=== PATIENT | female | born 1995 | race Caucasian/White ===

== ENCOUNTER 2020-05-05 16:10 | Emergency (ER) | payer OTHER ==
[2020-05-05 16:49] LABS: BASOPHILS % (AUTO) 0.4 %; EOSINOPHILS # (AUTO) 0.1 10^3/uL (0.0-0.7); EOSINOPHILS % (AUTO) 0.8 %; HGB - HEMOGLOBIN 13.2 g/dL (12.0-16.0); LYMPHOCYTES # (AUTO) 2.2 10^3/uL (1.5-3.5); LYMPHOCYTES % (AUTO) 22.7 %; MEAN CORPUSCULAR HEMOGLOBIN 29.1 pg (27.0-31.0); MEAN CORPUSCULAR HGB CONC 32.9 g/dL (32.0-36.0); MEAN CORPUSCULAR VOLUME 88.5 fL (81.0-99.0); MEAN PLATELET VOLUME 10.9 fL (7.9-10.8); MONOCYTES # (AUTO) 0.9 10^3/uL (0.0-1.0); MONOCYTES % (AUTO) 9.4 %; NEUTROPHILS # (AUTO) 6.3 10^3/uL (1.5-6.6); NEUTROPHILS % (AUTO) 66.2 %; PLT - PLATELET COUNT 328 10^3/uL (130-450); RED BLOOD COUNT 4.53 10^6/uL (4.20-5.40); WHITE BLOOD COUNT 9.5 x10^3/uL (4.8-10.8)
[2020-05-05 17:01] LABS: BILIRUBIN,URINE NEGATIVE (NEGATIVE); GLUCOSE, URINE (UA) NEGATIVE (NEGATIVE); KETONES,URINE (UA) NEGATIVE (NEGATIVE); LEUKOCYTE ESTERASE, URINE NEGATIVE (NEGATIVE); NITRITE,URINE NEGATIVE (NEGATIVE); OCCULT BLOOD,URINE LARGE (NEGATIVE); PROTEIN,URINE NEGATIVE (NEGATIVE); UROBILINOGEN,URINE 0.2 (NORMAL) E.U./dL (NORMAL)
[2020-05-05 17:02] LABS: ALBUMIN 4.4 g/dL (3.2-5.5); ALBUMIN/GLOBULIN RATIO 1.4 (1.0-2.2); BILIRUBIN,TOTAL 0.7 mg/dL (0.2-1.0); CALCIUM 8.9 mg/dL (8.5-10.3); CREATININE 0.9 mg/dL (0.4-1.0); TOTAL PROTEIN 7.5 g/dL (6.7-8.2)
[2020-05-05 17:04] LABS: CLARITY,URINE CLEAR (CLEAR); HCG UR QUAL NEGATIVE
[2020-05-05 17:06] VITALS: BP 133/82
[2020-05-05 17:08] LABS: BACTERIA,URINE None Seen /HPF (None Seen); RBC,URINE TNTC /HPF (0-5); SQUAMOUS EPITHELIAL CELL,UR NONE SEEN (<= Few)
--- NOTE | 2020-05-05 17:14 | ED Physician Documentation ---
PD HPI FEMALE - Stated complaint Stated Complaint: FEMALE - Chief complaint Chief Complaint: Abd Pain - History obtained from History obtained from: Patient - Additional information Additional information: She has chronically irregular cycles. She is G1, P0 with history of miscarriage x1. There is a possibility of . Heavy bleeding starting today with clots. No pain. Review of Systems Constitutional: reports: Reviewed and negative Cardiac: reports: Reviewed and negative Respiratory: reports: Reviewed and negative PD PAST MEDICAL HISTORY - Present Medications Home Medications: Ambulatory Orders Medication Instructions Recorded Confirmed Estradiol Valerate/Dienogest 1 each PO TID #1 packet 05/05/20 [Natazia 28 Tablet] - Allergies Allergies/Adverse Reactions: Allergies Allergy/AdvReac Type Severity Reaction Status Date / Time No Known Drug Allergies Allergy Verified 05/05/20 16:24 PD ED PE NORMAL - Vitals Vital signs reviewed: Yes - General General: Alert and oriented X 3, No acute distress - Abdomen Abdomen: Normal bowel sounds, Soft, Non tender - Back Back: No CVA TTP, No spinal TTP - Extremities Extremities: No edema, No calf tenderness / cord - Neuro Neuro: Alert and oriented X 3, Normal speech Results - Vitals Vitals: Vital Signs - 24 hr 05/05/20 05/05/20 16:24 17:05 Temperature 36.8 C 37.7 C H Heart Rate 95 74 Respiratory 18 16 Rate Blood Pressure 124/83 H 133/82 H O2 Saturation 100 100 Oxygen O2 Source Room air - Labs Labs: Laboratory Tests 05/05/20 05/05/20 05/05/20 16:44 16:44 16:44 WBC 9.5 RBC 4.53 Hgb 13.2 Hct 40.1 MCV 88.5 MCH 29.1 MCHC 32.9 RDW 13.0 Plt Count 328 MPV 10.9 H Neut # (Auto) 6.3 Lymph # (Auto) 2.2 [place] # (Auto) 0.9 Eos # (Auto) 0.1 Baso # (Auto) 0.0 Absolute Nucleated RBC 0.00 Nucleated RBC % 0.0 Sodium 138 Potassium 3.7 Chloride 104 Carbon Dioxide 23 Anion Gap 11.0 BUN 13 Creatinine 0.9 Estimated GFR (MDRD) 76 L Glucose 108 H Calcium 8.9 Total Bilirubin 0.7 AST 18 ALT 25 Alkaline Phosphatase 53 Total Protein 7.5 Albumin 4.4 Globulin 3.1 Albumin/Globulin Ratio 1.4 Lipase 26 Urine Color YELLOW Urine Clarity CLEAR Urine pH 6.0 Ur Specific [place] 1.025 Urine Protein NEGATIVE Urine Glucose (UA) NEGATIVE Urine Ketones NEGATIVE Urine Occult Blood LARGE H Urine Nitrite NEGATIVE Urine Bilirubin NEGATIVE Urine Urobilinogen 0.2 (NORMAL) Ur Leukocyte Esterase NEGATIVE Urine RBC TNTC H Urine WBC 0-3 Ur Squamous Epith Cells NONE SEEN Urine Bacteria None Seen Ur Microscopic Review INDICATED Urine Culture Comments NOT INDICATED Urine HCG, Qual NEGATIVE PD MEDICAL DECISION MAKING - ED course ED course: 25-year-old with menorrhagia, blood counts are unremarkable as is her test which is negative. Departure - Departure Disposition: Home, Self Care Clinical Impression: Menorrhagia with irregular cycle Condition: Good Record reviewed to determine appropriate education?: Yes Instructions: ED Bleeding Menstrual Heavy Follow-Up: [facility] [Provider Group] Prescriptions: Estradiol Valerate/Dienogest [Natazia 28 Tablet] 1 each PO TID #1 packet Comments: The bleeding should go away quickly after you start the high-dose control. Return if worse. Follow-up with rn gynecology regardless.
== END 2020-05-05 17:29 | disposition home or self-care (01) ==
LOC: ED 16:10
DX: N92.0 Excessive and frequent menstruation with regular cycle (principal)
CPT/HCPCS: 36415; 80053; 81001; 81003; 81025; 83690; 84702; 85025; 87086; 99283

== ENCOUNTER 2022-08-19 21:54 | Emergency (ER) | payer OTHER ==
--- OUTSIDE RECORDS SUMMARY | 2022-08-19 22:21 | EXTERNAL MEDICAL SUMMARY RPT | Continuity of Care Document ---
:1995 Author Organization [facility] Address [address] [place] [address] Phone Care Team Providers Name Role Phone Unavailable Unavailable Unavailable Carrie Pichardo Unavailable Unavailable Allergies and Intolerances date description facility type (no date) No Known Drug Allergies [facility] ([facility]kn own) Encounters No information. Functional Status No information. Immunizations date description facility 2022-07-11 00:00 [facility]les, [facility] date description facility 2022-07-11 00:00 Oxycodone [facility] 2022-07-11 00:00 Docusate Sodium [facility] 2022-07-11 00:00 Ibuprofen [facility] Problems date description facility 2022-06-07 13:53 Encounter for supervision of normal [facility] , third t 2022-06-07 13:53 36 weeks gestation of [facility] 2022-06-08 00:44 Encounter for supervision of normal [facility] , third t 2022-06-08 00:44 36 weeks gestation of [facility] 2022-06-14 12:49 Supervision of resulting from [facility] assisted reproductiv 2022-06-15 12:57 37 weeks gestation of [facility] 2022-07-11 00:00 Acute on chronic anemia [facility] 2022-07-11 00:00 Status post delivery [facility] 2022-07-11 14:23 Anemia, [facility] 2022-07-11 14:23 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 [facility]22-07-12 08[facility] 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 [facility] Procedures date description facility 2022-07-07 00:00 Extraction of Products of Conception, L ow, Open [facility] Approach 2022-07-09 00:00 Section (Not Applicable) [facility] 2022-06-14 00:00 Limited obstetrical ultrasound [facility] 2022-07-07 00:00 Introduction of Other Hormone into Rocio pheral [facility] Vein, Percutaneous Approach 2022-07-07 00:00 introduction of hormone into [facility] reproductive, via natural or artificial opening Results/Labs test date author facility value unit interpret ation Result panel 1 (unknown) (no date[facility]) Result panel 2 (unknown) (no date) (unknown[facility] Result panel 3 (unknown) (no date) (unknown[facility] Result panel 4 (unknown) (no date) (unknown[facility] Result panel 5 (unknown) (no date) (unknown[facility] Result panel 6 (unknown) (no date) (unknown[facility] Result panel 7 (unknown) (no date) (unknown[facility]) Result panel 8 (unknown) (no date) (unknown[facility] Result panel 9 (unknown) (no date) (unknown[facility]) Result panel 10 (unknown) (no date) (unknown[facility]) Result panel 11 (unknown) (no date) (unknown[facility] Result panel 12 (unknown) (no date) (unknown[facility]) Result panel 13 (unknown) (no date) (unknown[facility] Result panel 14 (unknown) (no date) (unknown[facility] Result panel 15 (unknown) (no date) (unknown[facility] Result panel 16 (unknown) (no date) (unknown[facility]) Result panel 17 (unknown) (no date) (unknown[facility] Result panel 18 (unknown) (no date) (unknown[facility]) Result panel 19 (unknown) (no date) (unknown[facility] Result panel 20 (unknown) (no date) (unknown[facility] Result panel 21 (unknown) (no date) (unknown[facility]) Result panel 22 (unknown) (no date) (unknown[facility]) Result panel 23 (unknown) (no date) (unknown[facility] Result panel 24 (unknown) (no date) (unknown[facility]) Result panel 25 (unknown) (no date) (unknown[facility]) Result panel 26 (unknown) (no date) (unknown[facility]) Result panel 27 (unknown) (no date) (unknown[facility]) Result panel 28 (unknown) (no date) (unknown[facility] Result panel 29 (unknown) (no date) (unknown[facility]) Result panel 30 (unknown) (no date) (unknown[facility]) Result panel 31 (unknown) (no date) (unknown[facility]) Result panel 32 (unknown) (no date) (unknown[facility]) Result panel 33 (unknown) (no date) (unknown[facility]) Result panel 34 (unknown) (no date) (unknown[facility]) Result panel 35 (unknown) (no date) (unknown[facility]) Result panel 36 (unknown) (no date) (unknown[facility]) Result panel 37 (unknown) (no date) (unknown[facility]) Result panel 38 (unknown) (no date) (unknown) [facility]) Result panel 39 (unknown) (no date) (unknown[facility]) Result panel 40 (unknown) (no date) (unknown) [facility]) Result panel 41 (unknown) (no date) (unknown[facility]) Result panel 42 (unknown) (no date) (unknown[facility]) Result panel 43 (unknown) (no date) (unknown[facility]) Result panel 44 (unknown) (no date) (unknown[facility]) Result panel 45 (unknown) (no date) (unknown[facility]) Result panel 46 (unknown) (no date) (unknown[facility]) Result panel 47 (unknown) (no date) (unknown[facility]) Result panel 48 (unknown) (no date) (unknown[facility]) Result panel 49 (unknown) (no date) (unknown) [facility]) Result panel 50 (unknown) (no date) (unknown[facility]) Result panel 51 (unknown) (no date) (unknown) [facility]) Result panel 52 (unknown) (no date) (unknown) [facility]) Result panel 53 (unknown) (no date) (unknown) [facility]) Result panel 54 (unknown) (no date) (unknown) [facility]) Result panel 55 (unknown) (no date) (unknown) [facility]) Result panel 56 (unknown) (no date) (unknown) [facility]) Result panel 57 (unknown) (no date) (unknown) [facility]) Result panel 58 (unknown) (no date) (unknown[facility]) Result panel 59 (unknown) (no date) (unknown[facility] Result panel 60 (unknown) (no date) (unknown[facility]) Result panel 61 (unknown) (no date) (unknown[facility]) Result panel 62 (unknown) (no date) (unknown) [facility]) Result panel 63 (unknown) (no date) (unknown[facility]) Result panel 64 (unknown) (no date) (unknown) [facility]) Result panel 65 (unknown) (no date) (unknown) [facility]) Result panel 66 (unknown) (no date) (unknown) [facility]) Result panel 67 (unknown) (no date) (unknown) [facility]) Result panel 68 (unknown) (no date) (unknown) [facility]) Result panel 69 (unknown) (no date) (unknown) [facility]) Result panel 70 (unknown) (no date) (unknown) [facility]) Result panel 71 (unknown) (no date) (unknown) [facility]) Result panel 72 (unknown) (no date) (unknown) [facility]) Result panel 73 (unknown) (no date) (unknown) [facility]) Result panel 74 (unknown) (no date) (unknown) [facility]) Result panel 75 (unknown) (no date) (unknown) [facility]) Result panel 76 (unknown) (no date) (unknown) [facility]) Result panel 77 (unknown) (no date) (unknown) [facility]) Result panel 78 (unknown) (no date) (unknown) [facility]) Result panel 79 (unknown) (no date) (unknown) [facility]) Result panel 80 (unknown) (no date) (unknown) [facility]) Result panel 81 (unknown) (no date) (unknown) [facility]) Result panel 82 (unknown) (no date) (unknown) [facility]) Result panel 83 (unknown) (no date) (unknown) [facility]) Result panel 84 (unknown) (no date) (unknown) [facility]) Result panel 85 (unknown) (no date) (unknown[facility]) Result panel 86 (unknown) (no date) (unknown[facility]) Result panel 87 (unknown) (no date) (unknown[facility]) Result panel 88 (unknown) (no date) (unknown[facility]) Result panel 89 (unknown) (no date) (unknown[facility]) Result panel 90 (unknown) (no date) (unknown) [facility]) Result panel 91 (unknown) (no date) (unknown) [facility]) Result panel 92 (unknown) (no date) (unknown) [facility]) Result panel 93 (unknown) (no date) (unknown) [facility]) Result panel 94 (unknown) (no date) (unknown) [facility]) Result panel 95 (unknown) (no date) (unknown) [facility]) Result panel 96 (unknown) (no date) (unknown) [facility]) Result panel 97 (unknown) (no date) (unknown) [facility]) Result panel 98 (unknown) (no date) (unknown) [facility]) Result panel 99 (unknown) (no date) (unknown[facility]) Result panel 100 (unknown) (no date) (unknown[facility]) Result panel 101 (unknown) (no date) (unknown[facility]) Result panel 102 (unknown) (no date) (unknown[facility]) Result panel 103 (unknown) (no date) (unknown[facility]) Result panel 104 (unknown) (no date) (unknown) [facility]) Result panel 105 (unknown) (no date) (unknown) [facility]) Result panel 106 (unknown) (no date) (unknown) [facility]) Result panel 107 (unknown) (no date) (unknown) [facility]) Result panel 108 (unknown) (no date) (unknown) [facility]) Result panel 109 (unknown) (no date) (unknown) [facility]) Result panel 110 (unknown) (no date) (unknown) [facility]) Result panel 111 (unknown) (no date) (unknown) [facility]) Result panel 112 (unknown) (no date) (unknown) [facility]) Result panel 113 (unknown) (no date) (unknown) [facility]) Result panel 114 (unknown) (no date) (unknown[facility]) Result panel 115 (unknown) (no date) (unknown) [facility]) Result panel 116 (unknown) (no date) (unknown) [facility]) Result panel 117 (unknown) (no date) (unknown) [facility]) Result panel 118 (unknown) (no date) (unknown) [facility]) Result panel 119 (unknown) (no date) (unknown) [facility]) Result panel 120 (unknown) (no date) (unknown) [facility]) Result panel 121 (unknown) (no date) (unknown) [facility]) Result panel 122 (unknown) (no date) (unknown) [facility]) Result panel 123 (unknown) (no date) (unknown) [facility]) Result panel 124 (unknown) (no date) (unknown) [facility]) Result panel 125 (unknown) (no date) (unknown[facility]) Result panel 126 (unknown) (no date) (unknown[facility]) Result panel 127 (unknown) (no date) (unknown[facility]) Result panel 128 (unknown) (no date) (unknown[facility]) Result panel 129 (unknown) (no date) (unknown[facility]) Result panel 130 (unknown) (no date) (unknown[facility]) Result panel 131 (unknown) (no date) (unknown[facility]) Result panel 132 (unknown) (no date) (unknown) [facility]) Result panel 133 (unknown) (no date) (unknown) [facility]) Result panel 134 (unknown) (no date) (unknown) [facility]) Result panel 135 (unknown) (no date) (unknown) [facility]) Result panel 136 (unknown) (no date) (unknown) [facility]) Result panel 137 (unknown) (no date) (unknown) [facility]) Result panel 138 (unknown) (no date) (unknown) [facility]) Result panel 139 (unknown) (no date) (unknown) [facility]) Result panel 140 (unknown) (no date) (unknown[facility]) Result panel 141 (unknown) (no date) (unknown[facility]) Result panel 142 (unknown) (no date) (unknown) [facility]) Result panel 143 (unknown) (no date) (unknown[facility]) Result panel 144 (unknown) (no date) (unknown[facility]) Result panel 145 (unknown) (no date) (unknown) [facility]) Result panel 146 (unknown) (no date) (unknown) [facility]) Result panel 147 (unknown) (no date) (unknown) [facility]) Result panel 148 (unknown) (no date) (unknown) [facility]) Result panel 149 (unknown) (no date) (unknown) [facility]) Result panel 150 (unknown) (no date) (unknown) [facility]) Result panel 151 (unknown) (no date) (unknown) [facility]) Result panel 152 (unknown) (no date) (unknown) [facility]) Result panel 153 (unknown) (no date) (unknown) [facility]) Result panel 154 (unknown) (no date) (unknown) [facility]) Result panel 155 (unknown) (no date) (unknown) [facility]) Result panel 156 (unknown) (no date) (unknown) [facility]) Result panel 157 (unknown) (no date) (unknown) [facility]) Result panel 158 (unknown) (no date) (unknown) [facility]) Result panel 159 (unknown) (no date) (unknown) [facility]) Result panel 160 (unknown) (no date) (unknown) [facility]) Result panel 161 (unknown) (no date) (unknown) [facility]) Result panel 162 (unknown) (no date) (unknown) [facility]) Result panel 163 (unknown) (no date) (unknown) [facility]) Result panel 164 (unknown) (no date) (unknown) [facility]) Result panel 165 (unknown) (no date) (unknown) [facility]) Result panel 166 (unknown) (no date) (unknown) [facility]) Result panel 167 (unknown) (no date) (unknown) [facility]) Result panel 168 (unknown) (no date) (unknown) [facility]) Result panel 169 (unknown) (no date) (unknown) [facility]) Result panel 170 (unknown) (no date) (unknown) [facility]) Result panel 171 (unknown) (no date) (unknown) [facility]) Result panel 172 (unknown) (no date) (unknown) [facility]) Result panel 173 (unknown) (no date) (unknown) [facility]) Result panel 174 (unknown) (no date) (unknown) [facility]) Result panel 175 (unknown) (no date) (unknown) [facility]) Result panel 176 (unknown) (no date) (unknown) [facility]) Result panel 177 (unknown) (no date) (unknown) [facility]) Result panel 178 (unknown) (no date) (unknown) [facility]) Result panel 179 (unknown) (no date) (unknown) [facility]) Result panel 180 (unknown) (no date) (unknown) [facility]) Result panel 181 (unknown) (no date) (unknown) [facility]) Result panel 182 (unknown) (no date) (unknown) [facility]) Result panel 183 (unknown) (no date) (unknown[facility]) Result panel 184 (unknown) (no date) (unknown[facility]) Result panel 185 (unknown) (no date) (unknown[facility]) Result panel 186 (unknown) (no date) (unknown[facility]) Result panel 187 (unknown) (no date) (unknown) [facility]) Result panel 188 (unknown) (no date) (unknown) [facility]) Result panel 189 (unknown) (no date) (unknown) [facility]) Result panel 190 (unknown) (no date) (unknown) [facility]) Result panel 191 (unknown) (no date) (unknown) [facility]) Result panel 192 (unknown) (no date) (unknown) [facility]) Result panel 193 (unknown) (no date) (unknown) [facility]) Result panel 194 (unknown) (no date) (unknown) [facility]) Result panel 195 (unknown) (no date) (unknown) [facility]) Result panel 196 (unknown) (no date) (unknown) [facility]) Result panel 197 (unknown) (no date) (unknown) [facility]) Result panel 198 (unknown) (no date) (unknown) [facility]) Result panel 199 (unknown) (no date) (unknown) [facility]) Result panel 200 (unknown) (no date) (unknown) [facility]) Result panel 201 (unknown) (no date) (unknown) [facility]) Result panel 202 (unknown) (no date) (unknown) [facility]) Result panel 203 (unknown) (no date) (unknown) [facility]) Result panel 204 (unknown) (no date) (unknown) [facility]) Result panel 205 (unknown) (no date) (unknown) [facility]) Result panel 206 (unknown) (no date) (unknown) [facility]) Result panel 207 (unknown) (no date) (unknown) [facility]) Result panel 208 (unknown) (no date) (unknown) [facility]) Result panel 209 (unknown) (no date) (unknown) [facility]) Result panel 210 (unknown) (no date) (unknown) [facility]) Result panel 211 (unknown) (no date) (unknown) [facility]) Result panel 212 (unknown) (no date) (unknown) [facility]) Result panel 213 (unknown) (no date) (unknown) [facility]) Result panel 214 (unknown) (no date) (unknown[facility]) Result panel 215 (unknown) (no date) (unknown) [facility] Result panel 216 (unknown) (no date) (unknown) [facility]) Result panel 217 (unknown) (no date) (unknown) [facility] Result panel 218 (unknown) (no date) (unknown) [facility] Result panel 219 (unknown) (no date) (unknown) [facility]) Result panel 220 (unknown) (no date) (unknown) [facility]) Result panel 221 (unknown) (no date) (unknown) [facility]) Result panel 222 (unknown) (no date) (unknown) [facility]) Result panel 223 (unknown) (no date) (unknown) [facility]) Result panel 224 (unknown) (no date) (unknown) [facility]) Result panel 225 (unknown) (no date) (unknown) [facility]) Result panel 226 (unknown) (no date) (unknown) [facility]) Result panel 227 (unknown) (no date) (unknown) [facility]) Result panel 228 (unknown) (no date) (unknown) [facility]) Result panel 229 (unknown) (no date) (unknown) [facility]) Result panel 230 (unknown) (no date) (unknown) [facility]) Result panel 231 (unknown) (no date) (unknown) [facility]) Result panel 232 (unknown) (no date) (unknown) [facility]) Result panel 233 (unknown) (no date) (unknown) [facility]) Result panel 234 (unknown) (no date) (unknown) [facility]) Result panel 235 (unknown) (no date) (unknown) [facility]) Result panel 236 (unknown) (no date) (unknown) [facility] Result panel 237 (unknown) (no date) (unknown) [facility]) Result panel 238 (unknown) (no date) (unknown) [facility]) Result panel 239 (unknown) (no date) (unknown[facility]) Result panel 240 (unknown) (no date) (unknown) [facility]) Result panel 241 (unknown) (no date) (unknown[facility]) Result panel 242 (unknown) (no date) (unknown) [facility]) Result panel 243 (unknown) (no date) (unknown) [facility]) Result panel 244 (unknown) (no date) (unknown) [facility]) Result panel 245 (unknown) (no date) (unknown) [facility]) Result panel 246 (unknown) (no date) (unknown) [facility]) Result panel 247 (unknown) (no date) (unknown) [facility]) Result panel 248 (unknown) (no date) (unknown) [facility]) Result panel 249 (unknown) (no date) (unknown) [facility]) Result panel 250 (unknown) (no date) (unknown) [facility]) Result panel 251 (unknown) (no date) (unknown) [facility]) Result panel 252 (unknown) (no date) (unknown) [facility]) Result panel 253 (unknown) (no date) (unknown) [facility]) Result panel 254 (unknown) (no date) (unknown) [facility]) Result panel 255 (unknown) (no date) (unknown) [facility]) Result panel 256 (unknown) (no date) (unknown) [facility]) Result panel 257 (unknown) (no date) (unknown) [facility]) Result panel 258 (unknown) (no date) (unknown) [facility]) Result panel 259 (unknown) (no date) (unknown) [facility]) Result panel 260 (unknown) (no date) (unknown) [facility]) Result panel 261 (unknown) (no date) (unknown) [facility]) Result panel 262 (unknown) (no date) (unknown) [facility]) Result panel 263 (unknown) (no date) (unknown) [facility]) Result panel 264 (unknown) (no date) (unknown) [facility]) Result panel 265 (unknown) (no date) (unknown) [facility]) Result panel 266 (unknown) (no date) (unknown) [facility]) Result panel 267 (unknown) (no date) (unknown) [facility]) Result panel 268 (unknown) (no date) (unknown) [facility]) Result panel 269 (unknown) (no date) (unknown) [facility]) Result panel 270 (unknown) (no date) (unknown) [facility]) Result panel 271 (unknown) (no date) (unknown) [facility]) Result panel 272 (unknown) (no date) (unknown) [facility]) Result panel 273 (unknown) (no date) (unknown) [facility]) Result panel 274 (unknown) (no date) (unknown) [facility]) Result panel 275 (unknown) (no date) (unknown) [facility]) Result panel 276 (unknown) (no date) (unknown) [facility]) Result panel 277 (unknown) (no date) (unknown) [facility]) Result panel 278 (unknown) (no date) (unknown) [facility]) Result panel 279 (unknown) (no date) (unknown) [facility]) Result panel 280 (unknown) (no date) (unknown) [facility]) Result panel 281 (unknown) (no date) (unknown) [facility]) Result panel 282 (unknown) (no date) (unknown) [facility]) Result panel 283 (unknown) (no date) (unknown) [facility]) Result panel 284 (unknown) (no date) (unknown) [facility]) Result panel 285 (unknown) (no date) (unknown) [facility]) Result panel 286 (unknown) (no date) (unknown) [facility]) Result panel 287 (unknown) (no date) (unknown) [facility]) Result panel 288 (unknown) (no date) (unknown) [facility]) Result panel 289 (unknown) (no date) (unknown) [facility]) Result panel 290 (unknown) (no date) (unknown) [facility]) Result panel 291 (unknown) (no date) (unknown) [facility]) Result panel 292 (unknown) (no date) (unknown) [facility]) Result panel 293 (unknown) (no date) (unknown) [facility]) Result panel 294 (unknown) (no date) (unknown) [facility]) Result panel 295 (unknown) (no date) (unknown) [facility]) Result panel 296 (unknown) (no date) (unknown) [facility]) Result panel 297 (unknown) (no date) (unknown) [facility]) Result panel 298 (unknown) (no date) (unknown) [facility]) Result panel 299 (unknown) (no date) (unknown) [facility]) Result panel 300 (unknown) (no date) (unknown) [facility]) Result panel 301 (unknown) (no date) (unknown) [facility]) Result panel 302 (unknown) (no date) (unknown) [facility]) Result panel 303 (unknown) (no date) (unknown) [facility]) Result panel 304 (unknown) (no date) (unknown) [facility]) Result panel 305 (unknown) (no date) (unknown) [facility]) Result panel 306 (unknown) (no date) (unknown) [facility]) Result panel 307 (unknown) (no date) (unknown) [facility]) Result panel 308 (unknown) (no date) (unknown) [facility]) Result panel 309 (unknown) (no date) (unknown) [facility]) Result panel 310 (unknown) (no date) (unknown) [facility]) Result panel 311 (unknown) (no date) (unknown) [facility]) Result panel 312 (unknown) (no date) (unknown) [facility]) Result panel 313 (unknown) (no date) (unknown) [facility]) Result panel 314 (unknown) (no date) (unknown) [facility]) Result panel 315 (unknown) (no date) (unknown) [facility]) Result panel 316 (unknown) (no date) (unknown) [facility]) Result panel 317 (unknown) (no date) (unknown) [facility]) Result panel 318 (unknown) (no date) (unknown) [facility]) Result panel 319 (unknown) (no date) (unknown) [facility]) Result panel 320 (unknown) (no date) (unknown) [facility]) Result panel 321 (unknown) (no date) (unknown) [facility]) Result panel 322 (unknown) (no date) (unknown) [facility]) Result panel 323 (unknown) (no date) (unknown) [facility]) Result panel 324 (unknown) (no date) (unknown) [facility]) Result panel 325 (unknown) (no date) (unknown) [facility]) Result panel 326 (unknown) (no date) (unknown) [facility]) Result panel 327 (unknown) (no date) (unknown) [facility] Result panel 328 (unknown) (no date) (unknown) [facility] Result panel 329 (unknown) (no date) (unknown[facility] Result panel 330 (unknown) (no (unknown) (unknown) (no value) (units (unk nown) date) unknown) (unknown) (no (unknown) (unknown) (+18 lb) 102/68 N (units (unknown) date) unknown) (unknown) (no (unknown) (unknown) (+26 lb) 128/72 N (units (unknown) date) unknown) (unknown) (no (unknown) (unknown) (+3 lb) 110/70 N (units (unknown) date) unknown) (unknown) (no (unknown) (unknown) (+32 lb) 110/72 1 (units (unknown) date) unknown) (unknown) (no (unknown) (unknown) (+36 lb) 114/64 N (units (unknown) date) unknown) (unknown) (no (unknown) (unknown) (+6 lb) 104/66 TR (units (unknown) date) unknown) (unknown) (no (unknown) (unknown) (+9 lb) 108/78 N (units (unknown) date) unknown) (unknown) (no (unknown) (unknown) Genetic (units (unkn own) date) Screening/Teratolo unknown) gy Counseling - Includes patient, baby's father, or (unknown) (no (unknown) (unknown) -?-?-?-?-?-?-?-?- (units (unknown) date) ?-?-?-? unknown) (unknown) (no (unknown) (unknown) 12/08/2021 (units (unk nown) date) Caceres viable unknown) intrauterine gestation size equal to dates (unknown) (no (unknown) (unknown) 12/08/21 (units (unkno wn) date) unknown) (unknown) (no (unknown) (unknown) 01/05/22 (units (unkno wn) date) unknown) (unknown) (no (unknown) (unknown) 02/02/22 (units (unkno wn) date) unknown) (unknown) (no (unknown) (unknown) 02/17/19 8 (units (unk nown) date) spontaneous unknown) (unknown) (no (unknown) (unknown) 02/28/22 (units (unkno wn) date) unknown) (unknown) (no (unknown) (unknown) 03/28/22 (units (unkno wn) date) unknown) (unknown) (no (unknown) (unknown) 04/25/22 (units (unkno wn) date) unknown) (unknown) (no (unknown) (unknown) 05/10/22 (units (unkno wn) date) unknown) (unknown) (no (unknown) (unknown) 05/24/22 (units (unkno wn) date) unknown) (unknown) (no (unknown) (unknown) 10w 6d 183 lb (units ( unknown) date) unknown) (unknown) (no (unknown) (unknown) 07/01/22 (units (unkno wn) date) Ultrasound #1 34w unknown) 4d (unknown) (no (unknown) (unknown) 13:43 (units (unkno wn) date) unknown) (unknown) (no (unknown) (unknown) 14w 6d 186 lb (units ( unknown) date) unknown) (unknown) (no (unknown) (unknown) 18w 6d 189 lb (units ( unknown) date) unknown) (unknown) (no (unknown) (unknown) 22w 4d 198 lb (units ( unknown) date) unknown) (unknown) (no (unknown) (unknown) 26w 4d 206 lb (units ( unknown) date) unknown) (unknown) (no (unknown) (unknown) 26wk4d. Pt with (units (unknown) date) some abdominal unknown) musculoskeletal discomfort, lower and (unknown) (no (unknown) (unknown) [id number], IVF (units ( unknown) date) , at unknown) 22wks here for DANYELLE visit. Constipation, no (unknown) (no (unknown) (unknown) 2wk (units (unkno wn) date) unknown) (unknown) (no (unknown) (unknown) 30w 4d 212 lb (units ( unknown) date) unknown) (unknown) (no (unknown) (unknown) 32w 5d 216 lb (units ( unknown) date) unknown) (unknown) (no (unknown) (unknown) 32wk5d. Trini (units (unknown) date) questions how to unknown) feel contractions, uncertain at times if (unknown) (no (unknown) (unknown) [id number] (units (unkno wn) date) unknown) (unknown) (no (unknown) (unknown) 42 (units (unkno wn) date) unknown) (unknown) (no (unknown) (unknown) Abnormal Pap (units (u nknown) date) smear of cervix unknown) (-2013) (unknown) (no (unknown) (unknown) Abnormal lab (units (u nknown) date) values 1st unknown) trimester: discussed (unknown) (no (unknown) (unknown) Add'l Plan (units (unk nown) date) Details unknown) (unknown) (no (unknown) (unknown) Age/Sex: 27 / F (units (unknown) date) Date of Service: unknown) (unknown) (no (unknown) (unknown) Allergies (units (unkn own) date) unknown) (unknown) (no (unknown) (unknown) [place], [place] (units ( unknown) date) [id number] unknown) (unknown) (no (unknown) (unknown) Anesthesia (units (unk nown) date) unknown) (unknown) (no (unknown) (unknown) Aneuploidy (units (unk nown) date) Screening Offered: unknown) Declined (unknown) (no (unknown) (unknown) Anticipated (units (un known) date) course of unknown) care: discussed (unknown) (no (unknown) (unknown) Assessment and (units (unknown) date) Plan unknown) (unknown) (no (unknown) (unknown) Attending Dr: Lynne (units (unknown) date) Sirisha Campuzano MD unknown) (unknown) (no (unknown) (unknown) BMI 38.7 (units (unkno wn) date) unknown) (unknown) (no (unknown) (unknown) (units (unkno wn) date) Plan/Preferences unknown) (unknown) (no (unknown) (unknown) Planning (units (unknown) date) unknown) (unknown) (no (unknown) (unknown) Blood (units (unkno wn) date) transfusions?: yes unknown) (never had but willing to accept) (unknown) (no (unknown) (unknown) Breastfeed Preg (units (unknown) date) Comp Name unknown) (unknown) (no (unknown) (unknown) Childbirth (units (unk nown) date) Classes: discussed unknown) (unknown) (no (unknown) (unknown) Current Estimate (units (unknown) date) 06/30/22 Manual unknown) 34w 5d IVF pregnan (unknown) (no (unknown) (unknown) Current (units (unknown) date) History unknown) (unknown) (no (unknown) (unknown) : 1995 (units (unknown) date) Acct:[id number] unknown) (unknown) (no (unknown) (unknown) Date of positive (units (unknown) date) home unknown) test: 10/16/21 (unknown) (no (unknown) (unknown) Date (units (unkno wn) date) unknown) (unknown) (no (unknown) (unknown) Del. Date (units (unkn own) date) GA/Weeks Labor unknown) Lgth Wt Sex Route Outcome Anesthesia Place (unknown) (no (unknown) (unknown) Delivery Date: (units (unknown) date) 02/17/19 Last unknown) Updated by: Juhi Hayes R.N. (unknown) (no (unknown) (unknown) Delv (units (unkno wn) date) unknown) (unknown) (no (unknown) (unknown) Denies Congenital (units (unknown) date) Heart Defect, unknown) Denies Down Syndrome, Denies Muscular Dystrophy, (unknown) (no (unknown) (unknown) Denies Maternal (units (unknown) date) Metabolic Disorder unknown) (EG,TYPE 1 Diabetes, PKU), Denies Patient or (unknown) (no (unknown) (unknown) Denies Neural (units ( unknown) date) Tube Defect unknown) (Meningomyelocele, Spina Bifida, or Anencephaly), (unknown) (no (unknown) (unknown) Denies Sickle (units ( unknown) date) Cell Disease or unknown) Trait (), Denies Hemophilia or other blood (unknown) (no (unknown) (unknown) Denies Epifanio-Sachs (units (unknown) date) (Ashkenazi Quaker, unknown) [place], [place]), Denies Nadja (unknown) (no (unknown) (unknown) Denies other (units (u nknown) date) unknown) (unknown) (no (unknown) (unknown) Denies over the (units (unknown) date) counter unknown) medications, Denies alcohol, Denies illicit drugs and (unknown) (no (unknown) (unknown) Depression: (units (un known) date) discussed unknown) (unknown) (no (unknown) (unknown) Dept at (units (unkno wn) date) . 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), (unknown) (no (unknown) (unknown) Documented By: (units (unknown) date) Lynne Campuzano unknown) 05/24/22 13 (unknown) (no (unknown) (unknown) Draft (units (unkno wn) date) unknown) (unknown) (no (unknown) (unknown) LORY Calculator (units (unknown) date) unknown) (unknown) (no (unknown) (unknown) EGA Weight BP (units ( unknown) date) UGlucose unknown) (unknown) (no (unknown) (unknown) Encounter for in (units (unknown) date) vitro unknown) fertilization () (unknown) (no (unknown) (unknown) Estimated (units (unkn own) date) Delivery Date unknown) Method Current (unknown) (no (unknown) (unknown) Exercise and (units (u nknown) date) activity, unknown) work/environmental /hazards, Sexual activity, X-ray (unknown) (no (unknown) (unknown) Expected Delivery (units (unknown) date) Route/Plan unknown) (unknown) (no (unknown) (unknown) Family History (units (unknown) date) (Updated 01/04/22 unknown) @ 23:06 by Paris Davalos) (unknown) (no (unknown) (unknown) Father of Baby: (units (unknown) date) [place] unknown) (unknown) (no (unknown) (unknown) [facility]) (unknown) (no (unknown) (unknown) First Trimester (units (unknown) date) Education unknown) Checklist (unknown) (no (unknown) (unknown) (units (unkno wn) date) unknown) (unknown) (no (unknown) (unknown) Genetic Screening (units (unknown) date) + Counseling unknown) (unknown) (no (unknown) (unknown) Genetic Screening (units (unknown) date) unknown) (unknown) (no (unknown) (unknown) Grandfather (units (un known) date) Diabetes mellitus unknown) (unknown) (no (unknown) (unknown) Grandmother (units (un known) date) Breast cancer unknown) (unknown) (no (unknown) (unknown) Grandmother (units (un known) date) Hypertension unknown) (unknown) (no (unknown) (unknown) 2 (units (unkn own) date) Multiple births unknown) (unknown) (no (unknown) (unknown) HIV risk (units (unkno wn) date) evaluation: low unknown) risk (unknown) (no (unknown) (unknown) Health Center (units ( unknown) date) Education unknown) (unknown) (no (unknown) (unknown) Health center (units ( unknown) date) information: unknown) nature of practice discussed, visit schedule (unknown) (no (unknown) (unknown) Height 5 ft 3 in (units (unknown) date) unknown) (unknown) (no (unknown) (unknown) Hepatitis C risk (units (unknown) date) evaluation: low unknown) risk (unknown) (no (unknown) (unknown) History of (units (unk nown) date) Hepatitis B: No unknown) (unknown) (no (unknown) (unknown) History of (units (unk nown) date) Hepatitis C: No unknown) (unknown) (no (unknown) (unknown) History of LEEP (units (unknown) date) procedure unknown) (unknown) (no (unknown) (unknown) 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) unknown) (unknown) (no (unknown) (unknown) Montague's (units (u nknown) date) Chorea, Denies unknown) Other inherited genetic or chromosomal disorder, (unknown) (no (unknown) (unknown) Hx # (units (u nknown) date) Pregnancies unknown) Elective abortions (unknown) (no (unknown) (unknown) Hx # Term (units (unkn own) date) Pregnancies unknown) Ectopic pregnancies (unknown) (no (unknown) (unknown) Hx of (units (unkno wn) date) tonsillectomy unknown) (-2009) (unknown) (no (unknown) (unknown) IVF for this (units (u nknown) date) , unknown) declined Echo 02/28/22 32 wk growth US 44% (unknown) (no (unknown) (unknown) Infection History (units (unknown) date) unknown) (unknown) (no (unknown) (unknown) Infection history (units (unknown) date) comments: needs unknown) flu + covid vaccines (unknown) (no (unknown) (unknown) Infectious (units (unk nown) date) Disease Education unknown) (unknown) (no (unknown) (unknown) Infectious (units (unk nown) date) disease exposure: unknown) chicken pox immunity discussed, tuberculosis (unknown) (no (unknown) (unknown) 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) unknown) (unknown) (no (unknown) (unknown) Initial Weight: (units (unknown) date) 180 lb unknown) (unknown) (no (unknown) (unknown) Initials (units (unkno wn) date) unknown) (unknown) (no (unknown) (unknown) Intake Clinical (units (unknown) date) Staff unknown) (unknown) (no (unknown) (unknown) Intake Note: (units (u nknown) date) unknown) (unknown) (no (unknown) (unknown) Intake performed (units (unknown) date) by: Juliana Manriquez unknown) (unknown) (no (unknown) (unknown) Intake (units (unkno wn) date) unknown) (unknown) (no (unknown) (unknown) Live with someone (units (unknown) date) with TB or exposed unknown) to TB: No (unknown) (no (unknown) (unknown) Loc: [facility] (units (unkno wn) date) unknown) (unknown) (no (unknown) (unknown) 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) () (unknown) (no (unknown) (unknown) Marital status: (units (unknown) date) unknown) (unknown) (no (unknown) (unknown) Medical History (units (unknown) date) (Updated 02/28/22 unknown) @ 08:37 by Lynne Campuzano MD) (unknown) (no (unknown) (unknown) Mother (units (unkno wn) date) Hypertension unknown) (unknown) (no (unknown) (unknown) N 140 15 4wk (units (u nknown) date) unknown) (unknown) (no (unknown) (unknown) N Yes 142 19 girl (units (unknown) date) 4wk unknown) (unknown) (no (unknown) (unknown) N Yes no 143 22 (units (unknown) date) absent 4wk unknown) (unknown) (no (unknown) (unknown) N Yes no 144 27 (units (unknown) date) absent 4 wk unknown) (unknown) (no (unknown) (unknown) N Yes no 144 (units (u nknown) date) Vertex absent EFW unknown) 44%, GOMEZ 14 (unknown) (no (unknown) (unknown) N Yes no 145 30 (units (unknown) date) absent 4wk unknown) (unknown) (no (unknown) (unknown) NF (units (unkno wn) date) unknown) (unknown) (no (unknown) (unknown) No Known Drug (units ( unknown) date) Allergies Allergy unknown) (Unverified 03/28/22 07:56) (unknown) (no (unknown) (unknown) No vaginal (units (unk nown) date) bleeding. No unknown) change in vaginal discharge. No fevers. No vaginal (unknown) (no (unknown) (unknown) Notes (units (unkno wn) date) unknown) (unknown) (no (unknown) (unknown) Number of Living (units (unknown) date) Children unknown) (unknown) (no (unknown) (unknown) Number of (units (unkn own) date) fetuses:: Single unknown) (unknown) (no (unknown) (unknown) Nutrition and (units ( unknown) date) weight gain unknown) counseling: special diet: discussed (unknown) (no (unknown) (unknown) OB Office Visit (units (unknown) date) unknown) (unknown) (no (unknown) (unknown) OB Visit Log (units (u nknown) date) unknown) (unknown) (no (unknown) (unknown) OB check (units (unkno wn) date) unknown) (unknown) (no (unknown) (unknown) On control (units (unknown) date) at conception?: No unknown) (IVF) (unknown) (no (unknown) (unknown) Other Estimates (units (unknown) date) 06/26/22 LMP unknown) (Certain) 35w 2d (unknown) (no (unknown) (unknown) PFSH (units (unkno wn) date) unknown) (unknown) (no (unknown) (unknown) Pap performed?: (units (unknown) date) No unknown) (unknown) (no (unknown) (unknown) Para 0 (units (unkno wn) date) Spontaneous unknown) abortions 1 (unknown) (no (unknown) (unknown) Partner history (units (unknown) date) of STD: denies hx unknown) (unknown) (no (unknown) (unknown) Partner history (units (unknown) date) of genital herpes: unknown) No (unknown) (no (unknown) (unknown) Partner: Bebeto (units (unknown) date) [place] unknown) (unknown) (no (unknown) (unknown) Past Pregnancies (units (unknown) date) unknown) (unknown) (no (unknown) (unknown) Patient is (units (unk nown) date) feeling well. Some unknown) mild cramping. No bleeding. No fevers. (unknown) (no (unknown) (unknown) Patient is (units (unk nown) date) feeling well. Some unknown) pressure sensation but no other concerns. (unknown) (no (unknown) (unknown) Patient's age 35 (units (unknown) date) years or older as unknown) of estimated date of delivery: No (unknown) (no (unknown) (unknown) Patient: (units (unkno wn) date) Trini Lorenz unknown) MR#: [id number] (unknown) (no (unknown) (unknown) Personal history (units (unknown) date) of STD: HPV (2015) unknown) (unknown) (no (unknown) (unknown) Personal history (units (unknown) date) of genital herpes: unknown) No (unknown) (no (unknown) (unknown) History (units (unknown) date) unknown) (unknown) (no (unknown) (unknown) type:: (units (unknown) date) Other Normal unknown) (unknown) (no (unknown) (unknown) (units (unkno wn) date) Education unknown) (unknown) (no (unknown) (unknown) Initial (units (unknown) date) Assessment unknown) (unknown) (no (unknown) (unknown) Specific (units (unknown) date) Issues/Plans unknown) (unknown) (no (unknown) (unknown) Testing: (units (unknown) date) discussed unknown) (unknown) (no (unknown) (unknown) Visit (units (unknown) date) unknown) (unknown) (no (unknown) (unknown) (units (unkno wn) date) education packet: unknown) Child education/plan, symptoms, (unknown) (no (unknown) (unknown) Primary Care (units (u nknown) date) Provider: Britt unknown) Sharmaine (unknown) (no (unknown) (unknown) Primary Ob (units (unk nown) date) Provider: unknown) Lynne Campuzano (unknown) (no (unknown) (unknown) Prior (units (unkno wn) date) GBS-Infected unknown) child: No (unknown) (no (unknown) (unknown) Providers (units (unkn own) date) unknown) (unknown) (no (unknown) (unknown) [id number]. She (units (unknown) date) denies any unknown) problems. She bought an abdominal binder and (unknown) (no (unknown) (unknown) Rash or viral (units ( unknown) date) illness since last unknown) menstrual period: No (unknown) (no (unknown) (unknown) Reason For Visit (units (unknown) date) unknown) (unknown) (no (unknown) (unknown) Recent travel (units ( unknown) date) outside of unknown) country?: No (unknown) (no (unknown) (unknown) Recurrent (units (unkn own) date) loss or unknown) a stillbirth: No (unknown) (no (unknown) (unknown) Routine (units (unkno wn) date) precautions and unknown) normal physiological changes of (unknown) (no (unknown) (unknown) Routine (units (unkno wn) date) precautions unknown) reviewed. (unknown) (no (unknown) (unknown) Rubella nonimmune (units (unknown) date) immunize unknown) (unknown) (no (unknown) (unknown) S/P LEEP (loop (units (unknown) date) electrosurgical unknown) excision procedure) () (unknown) (no (unknown) (unknown) Safety (units (unkno wn) date) unknown) (unknown) (no (unknown) (unknown) Signed By: (units (unk nown) date) unknown) (unknown) (no (unknown) (unknown) Smoking Status: (units (unknown) date) Never smoker unknown) (unknown) (no (unknown) (unknown) Smoking/Tobacco (units (unknown) date) use: discussed unknown) (unknown) (no (unknown) (unknown) Social History (units (unknown) date) unknown) (unknown) (no (unknown) (unknown) Surgical History (units (unknown) date) (Updated 01/04/22 unknown) @ 23:05 by Paris Davalos) (unknown) (no (unknown) (unknown) Symptoms since (units (unknown) date) LMP: Reports unknown) amenorrhea, nausea, fatigue, urinary frequency, (unknown) (no (unknown) (unknown) TR 174 11 4wk (units ( unknown) date) unknown) (unknown) (no (unknown) (unknown) Tdap status: (units (u nknown) date) immunized unknown) (unknown) (no (unknown) (unknown) Teratogen (units (unkn own) date) Exposures since unknown) LMP/Conception: Denies prescription medications, (unknown) (no (unknown) (unknown) Testing Education (units (unknown) date) unknown) (unknown) (no (unknown) (unknown) Testing education (units (unknown) date) completed: Genetic unknown) testing, group B strep and Cell Free DNA (unknown) (no (unknown) (unknown) This note may (units ( unknown) date) have been all or unknown) partially generated using voice recognition (unknown) (no (unknown) (unknown) Tobacco + (units (unkn own) date) Substance Use unknown) (unknown) (no (unknown) (unknown) Tobacco Status (units (unknown) date) unknown) (unknown) (no (unknown) (unknown) Trimester:: 3rd (units (unknown) date) Trimester unknown) (28wks-Del) (unknown) (no (unknown) (unknown) Type(s) of (units (unk nown) date) exercise: none unknown) (unknown) (no (unknown) (unknown) Typically feels (units (unknown) date) in the a.m.. Only unknown) feeling occasionally, nothing routinely. I (unknown) (no (unknown) (unknown) UProtein Movement (units (unknown) date) PreLabor FHR Fndl unknown) Ht Pres Edema Cerv Exam US/Comment Next Appt (unknown) (no (unknown) (unknown) Ultrasound (units (unk nown) date) Details:: Prior 7 unknown) week 3 day ultrasound at IVF on 11/15/21 clinic (unknown) (no (unknown) (unknown) Ultrasound (units (unk nown) date) performed?: No unknown) (unknown) (no (unknown) (unknown) Ultrasound (units (unk nown) date) unknown) (unknown) (no (unknown) (unknown) Vaginal (units (unkno wn) date) unknown) (unknown) (no (unknown) (unknown) Varicella/chicken (units (unknown) date) pox status: unknown) immunized and previous disease (mild case as (unknown) (no (unknown) (unknown) Visit Date: (units (un known) date) 12/08/21 Last unknown) Updated by: Carrie Pichardo MD (unknown) (no (unknown) (unknown) Visit Date: (units (un known) date) 01/05/22 Last unknown) Updated by: Carrie Pichardo MD (unknown) (no (unknown) (unknown) Visit Date: (units (un known) date) 02/02/22 Last unknown) Updated by: Carrie Pichardo MD (unknown) (no (unknown) (unknown) Visit Date: (units (un known) date) 02/28/22 Last unknown) Updated by: Lynne Campuzano MD (unknown) (no (unknown) (unknown) Visit Date: (units (un known) date) 03/28/22 Last unknown) Updated by: Lynne Campuzano MD (unknown) (no (unknown) (unknown) Visit Date: (units (un known) date) 04/25/22 Last unknown) Updated by: Lynne Campuzano MD (unknown) (no (unknown) (unknown) Visit Date: (units (un known) date) 05/10/22 Last unknown) Updated by: Lynne Campuzano MD (unknown) (no (unknown) (unknown) Visit Reasons: OB (units (unknown) date) check unknown) (unknown) (no (unknown) (unknown) Vitals (units (unkno wn) date) unknown) (unknown) (no (unknown) (unknown) Vitamins and (units (u nknown) date) iron, Diet and unknown) weight gain, Fish and mercury intake, Caffeine use, (unknown) (no (unknown) (unknown) WG (units (unkno wn) date) unknown) (unknown) (no (unknown) (unknown) Weeks gestation:: (units (unknown) date) 34 unknown) (unknown) (no (unknown) (unknown) Weight 219 lb (units ( unknown) date) unknown) (unknown) (no (unknown) (unknown) Millis teeth (units (u nknown) date) extracted () unknown) (unknown) (no (unknown) (unknown) Zika virus (units (unk nown) date) exposure: No unknown) (unknown) (no (unknown) (unknown) alcohol intake: (units (unknown) date) former unknown) (unknown) (no (unknown) (unknown) amh (units (unkno wn) date) unknown) (unknown) (no (unknown) (unknown) and office visits (units (unknown) date) unknown) (unknown) (no (unknown) (unknown) anyone in either (units (unknown) date) family with: unknown) (unknown) (no (unknown) (unknown) baby's father had (units (unknown) date) a child with unknown) defects not listed above and Denies Other (unknown) (no (unknown) (unknown) bleeding. She is (units (unknown) date) feeling baby move. unknown) Routine precautions reviewed. (unknown) (no (unknown) (unknown) caffeine: Yes (units ( unknown) date) (aware of 200mg unknown) daily limit) (unknown) (no (unknown) (unknown) carbon monox (units (u nknown) date) detector in home: unknown) Yes (unknown) (no (unknown) (unknown) child) (units (unkno wn) date) unknown) (unknown) (no (unknown) (unknown) concerns with (units ( unknown) date) COVID infection unknown) and and urged patient to consider (unknown) (no (unknown) (unknown) consistent with (units (unknown) date) dates. unknown) (unknown) (no (unknown) (unknown) cramping, vaginal (units (unknown) date) bleeding or unknown) leakage of fluid. Doing her Glucola today. (unknown) (no (unknown) (unknown) current (units (unkno wn) date) occupational unknown) exposures/hazards: No (unknown) (no (unknown) (unknown) cy (units (unkno wn) date) unknown) (unknown) (no (unknown) (unknown) cytotec (units (unkno wn) date) unknown) (unknown) (no (unknown) (unknown) daily servings (units (unknown) date) fruits/ve-4 unknown) (unknown) (no (unknown) (unknown) declined referral (units (unknown) date) for unknown) echocardiogram for IVF . (unknown) (no (unknown) (unknown) discussed (units (unkn own) date) increased fiber in unknown) diet. May use MiraLax. No uterine type cramping, (unknown) (no (unknown) (unknown) discussed with (units (unknown) date) the patient. unknown) Patient is not COVID vaccinated. Discussed (unknown) (no (unknown) (unknown) disorders, Denies (units (unknown) date) Cystic Fibrosis, unknown) Denies Mental Retardation/Autism , Denies (unknown) (no (unknown) (unknown) do you feel safe (units (unknown) date) at home: Yes unknown) (unknown) (no (unknown) (unknown) drops of urine, (units (unknown) date) does feel it is unknown) from the bladder. No vaginal leakage of fluid (unknown) (no (unknown) (unknown) during the past (units (unknown) date) year weight has: unknown) decreased > 10 lbs (lost 30 lbs) (unknown) (no (unknown) (unknown) eating out: (units (un known) date) rarely or never unknown) (unknown) (no (unknown) (unknown) education level: (units (unknown) date) college unknown) (unknown) (no (unknown) (unknown) exposure (units (unkno wn) date) discussed, CMV unknown) discussed, Toxoplasmosis precautions, Listeriosis (unknown) (no (unknown) (unknown) exposure, (units (unkn own) date) Medication use, unknown) Sauna/hot tub use, Dental care and Travel (unknown) (no (unknown) (unknown) feeling some upper (units (unknown) date) discomfort when unknown) standing, but some muscle support tape to try (unknown) (no (unknown) (unknown) feels better with (units (unknown) date) using this when on unknown) her feet. Feeling good movement. No (unknown) (no (unknown) (unknown) fire extinguisher (units (unknown) date) in home: No unknown) (unknown) (no (unknown) (unknown) firearms in home: (units (unknown) date) No unknown) (unknown) (no (unknown) (unknown) frequency: does (units (unknown) date) not exercise unknown) (unknown) (no (unknown) (unknown) frequent, then to (units (unknown) date) call. Occasionally unknown) feeling vaginal pressure when she sits, (unknown) (no (unknown) (unknown) getting the (units (un known) date) vaccine in unknown) . (unknown) (no (unknown) (unknown) have occurred. If (units (unknown) date) there are any unknown) questions, please contact the Medical Records (unknown) (no (unknown) (unknown) here. No other (units (unknown) date) problems. Feeling unknown) good movement. No contractions, (unknown) (no (unknown) (unknown) household (units (unkn own) date) members: spouse unknown) (unknown) (no (unknown) (unknown) housing: house (units (unknown) date) unknown) (unknown) (no (unknown) (unknown) irritability, (units ( unknown) date) bloating and other unknown) (headaches + constipation) (unknown) (no (unknown) (unknown) leakage of fluid, (units (unknown) date) vaginal bleeding unknown) or abnormal vaginal discharge. Feeling (unknown) (no (unknown) (unknown) marital status: (units (unknown) date) unknown) (unknown) (no (unknown) (unknown) may occur. (units (unk nown) date) Occasional unknown) wrong-word or 'sound-alike' substitutions may have (unknown) (no (unknown) (unknown) medication (units (unk nown) date) options during unknown) labor. Tdap given today. (unknown) (no (unknown) (unknown) normal Glucola, (units (unknown) date) hemoglobin was unknown) 11.8. Questions answered regarding pain (unknown) (no (unknown) (unknown) noted cramping, (units (unknown) date) contractions, unknown) vaginal bleeding or leakage of fluid. She had a (unknown) (no (unknown) (unknown) nothing (units (unkno wn) date) persistent. unknown) Feeling good movement. Occasionally leaking few (unknown) (no (unknown) (unknown) number of (units (unkn own) date) children: 0 unknown) (unknown) (no (unknown) (unknown) occupational (units (u nknown) date) status: unemployed unknown) (unknown) (no (unknown) (unknown) occurred due to (units (unknown) date) the inherent unknown) limitations of voice recognition software. Please (unknown) (no (unknown) (unknown) or bleeding. No (units (unknown) date) persistent unknown) cramping. Ultrasound for EFW today due to IVF (unknown) (no (unknown) (unknown) other problems. (units (unknown) date) Tried 1 Colace unknown) daily without improvement. Discussed increase (unknown) (no (unknown) (unknown) pets and animals: (units (unknown) date) Yes (2 dogs) unknown) (unknown) (no (unknown) (unknown) . EFW 44 (units (unknown) date) percentile, 2022 unknown) g, 4 lb 7 oz. GOMEZ 14.6. (unknown) (no (unknown) (unknown) prevention and (units (unknown) date) Rubella unknown) Immunization (unknown) (no (unknown) (unknown) read the note (units ( unknown) date) carefully and unknown) recognize, using context, where these substitutions (unknown) (no (unknown) (unknown) reviewed had a (units (unknown) date) palpate for unknown) contractions, and if having every 10 minutes or more (unknown) (no (unknown) (unknown) reviewed, (units (unkn own) date) coverage 24 hours unknown) a day and participation of father in care (unknown) (no (unknown) (unknown) routine (units ( unknown) date) movement. She will unknown) do her Glucola/H/H next visit. Offered, (unknown) (no (unknown) (unknown) seatbelt use: (units ( unknown) date) always unknown) (unknown) (no (unknown) (unknown) second hand (units (un known) date) exposure: No unknown) (unknown) (no (unknown) (unknown) she is feeling (units ( unknown) date) Bc Joy or unknown) the baby, when feels tight in the upper abdomen. (unknown) (no (unknown) (unknown) software. 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 After (units (unknown) date) review, may need unknown) to increase water intake recently, and (unknown) (no (unknown) (unknown) to use as an (units (u nknown) date) abdominal binder. unknown) Will try to fit her for an abdominal binder (unknown) (no (unknown) (unknown) travel history: [facility] (unknown) date[facility] (unknown) (no (unknown) (unknown) water heater temp (units (unknown) date) set < 120 deg: No unknown) (unsure) (unknown) (no (unknown) (unknown) well-balanced (units ( unknown) date) diet: about half unknown) the time (unknown) (no (unknown) (unknown) working smoke (units ( unknown) date) detector in home: unknown) Yes Result panel 331 (unknown) (no (unknown) (unknown) (no value) (units (unk nown) date) unknown) (unknown) (no (unknown) (unknown) (+18 lb) 102/68 N (units (unknown) date) unknown) (unknown) (no (unknown) (unknown) (+26 lb) 128/72 N (units (unknown) date) unknown) (unknown) (no (unknown) (unknown) (+3 lb) 110/70 N (units (unknown) date) unknown) (unknown) (no (unknown) (unknown) (+32 lb) 110/72 1 (units (unknown) date) unknown) (unknown) (no (unknown) (unknown) (+36 lb) 114/64 N (units (unknown) date) unknown) (unknown) (no (unknown) (unknown) (+39 lb) 104/70 (units (unknown) date) unknown) (unknown) (no (unknown) (unknown) (+6 lb) 104/66 TR (units (unknown) date) unknown) (unknown) (no (unknown) (unknown) (+9 lb) 108/78 N (units (unknown) date) unknown) (unknown) (no (unknown) (unknown) (1) 34 weeks (units (u nknown) date) gestation of unknown) : (unknown) (no (unknown) (unknown) Genetic (units (unkn own) date) Screening/Teratolo unknown) gy Counseling - Includes patient, baby's father, or (unknown) (no (unknown) (unknown) -?-?-?-?-?-?-?-?- (units (unknown) date) ?-?-?-? unknown) (unknown) (no (unknown) (unknown) 12/08/2021 (units (unk nown) date) Caceres viable unknown) intrauterine gestation size equal to dates (unknown) (no (unknown) (unknown) 12/08/21 (units (unkno wn) date) unknown) (unknown) (no (unknown) (unknown) 01/05/22 (units (unkno wn) date) unknown) (unknown) (no (unknown) (unknown) 02/02/22 (units (unkno wn) date) unknown) (unknown) (no (unknown) (unknown) 02/17/19 8 (units (unk nown) date) spontaneous unknown) (unknown) (no (unknown) (unknown) 02/28/22 (units (unkno wn) date) unknown) (unknown) (no (unknown) (unknown) 03/28/22 (units (unkno wn) date) unknown) (unknown) (no (unknown) (unknown) 04/25/22 (units (unkno wn) date) unknown) (unknown) (no (unknown) (unknown) 05/10/22 (units (unkno wn) date) unknown) (unknown) (no (unknown) (unknown) 05/24/22 1415 (units ( unknown) date) unknown) (unknown) (no (unknown) (unknown) 05/24/22 (units (unkno wn) date) unknown) (unknown) (no (unknown) (unknown) 10w 6d 183 lb (units ( unknown) date) unknown) (unknown) (no (unknown) (unknown) 07/01/22 (units (unkno wn) date) Ultrasound #1 34w unknown) 4d (unknown) (no (unknown) (unknown) 13:43 (units (unkno wn) date) unknown) (unknown) (no (unknown) (unknown) 14w 6d 186 lb (units ( unknown) date) unknown) (unknown) (no (unknown) (unknown) 18w 6d 189 lb (units ( unknown) date) unknown) (unknown) (no (unknown) (unknown) 22w 4d 198 lb (units ( unknown) date) unknown) (unknown) (no (unknown) (unknown) 26w 4d 206 lb (units ( unknown) date) unknown) (unknown) (no (unknown) (unknown) 26wk4d. Pt with (units (unknown) date) some abdominal unknown) musculoskeletal discomfort, lower and (unknown) (no (unknown) (unknown) [id number], IVF (units ( unknown) date) , at unknown) 22wks here for DANYELLE visit. Constipation, no (unknown) (no (unknown) (unknown) 2wk (units (unkno wn) date) unknown) (unknown) (no (unknown) (unknown) 30w 4d 212 lb (units ( unknown) date) unknown) (unknown) (no (unknown) (unknown) 32w 5d 216 lb (units ( unknown) date) unknown) (unknown) (no (unknown) (unknown) 32wk5d. Trini (units (unknown) date) questions how to unknown) feel contractions, uncertain at times if (unknown) (no (unknown) (unknown) 34w 5d 219 lb (units ( unknown) date) unknown) (unknown) (no (unknown) (unknown) [id number] (units (unkno wn) date) unknown) (unknown) (no (unknown) (unknown) 42 (units (unkno wn) date) unknown) (unknown) (no (unknown) (unknown) Abnormal Pap (units (u nknown) date) smear of cervix unknown) (-2013) (unknown) (no (unknown) (unknown) Abnormal lab (units (u nknown) date) values 1st unknown) trimester: discussed (unknown) (no (unknown) (unknown) Add'l Plan (units (unk nown) date) Details unknown) (unknown) (no (unknown) (unknown) Age/Sex: 27 / F (units (unknown) date) Date of Service: unknown) (unknown) (no (unknown) (unknown) Allergies (units (unkn own) date) unknown) (unknown) (no (unknown) (unknown) [place], [place] (units ( unknown) date) [id number] unknown) (unknown) (no (unknown) (unknown) Anesthesia (units (unk nown) date) unknown) (unknown) (no (unknown) (unknown) Aneuploidy (units (unk nown) date) Screening Offered: unknown) Declined (unknown) (no (unknown) (unknown) Anticipated (units (un known) date) course of unknown) care: discussed (unknown) (no (unknown) (unknown) Assessment and (units (unknown) date) Plan unknown) (unknown) (no (unknown) (unknown) Attending Dr: Lynne (units (unknown) date) Sirisha Campuzano MD unknown) (unknown) (no (unknown) (unknown) BMI 38.7 (units (unkno wn) date) unknown) (unknown) (no (unknown) (unknown) BP 104/70 (units (unkn own) date) unknown) (unknown) (no (unknown) (unknown) (units (unkno wn) date) Plan/Preferences unknown) (unknown) (no (unknown) (unknown) Planning (units (unknown) date) unknown) (unknown) (no (unknown) (unknown) Blood Pressure (units (unknown) date) Location Rt unknown) brachial (unknown) (no (unknown) (unknown) Blood (units (unkno wn) date) transfusions?: yes unknown) (never had but willing to accept) (unknown) (no (unknown) (unknown) Breastfeed Preg (units (unknown) date) Comp Name unknown) (unknown) (no (unknown) (unknown) Childbirth (units (unk nown) date) Classes: discussed unknown) (unknown) (no (unknown) (unknown) Current Estimate (units (unknown) date) 06/30/22 Manual unknown) 34w 5d IVF pregnan (unknown) (no (unknown) (unknown) Current (units (unknown) date) History unknown) (unknown) (no (unknown) (unknown) : 1995 (units (unknown) date) Acct:[id number] unknown) (unknown) (no (unknown) (unknown) Date of positive (units (unknown) date) home unknown) test: 10/16/21 (unknown) (no (unknown) (unknown) Date (units (unkno wn) date) unknown) (unknown) (no (unknown) (unknown) Del. Date (units (unkn own) date) GA/Weeks Labor unknown) Lgth Wt Sex Route Outcome Anesthesia Place (unknown) (no (unknown) (unknown) Delivery Date: (units (unknown) date) 02/17/19 Last unknown) Updated by: Juhi Hayes R.N. (unknown) (no (unknown) (unknown) Delv (units (unkno wn) date) unknown) (unknown) (no (unknown) (unknown) Denies Congenital (units (unknown) date) Heart Defect, unknown) Denies Down Syndrome, Denies Muscular Dystrophy, (unknown) (no (unknown) (unknown) Denies Maternal (units (unknown) date) Metabolic Disorder unknown) (EG,TYPE 1 Diabetes, PKU), Denies Patient or (unknown) (no (unknown) (unknown) Denies Neural (units ( unknown) date) Tube Defect unknown) (Meningomyelocele, Spina Bifida, or Anencephaly), (unknown) (no (unknown) (unknown) Denies Sickle (units ( unknown) date) Cell Disease or unknown) Trait (), Denies Hemophilia or other blood (unknown) (no (unknown) (unknown) Denies Epifanio-Sachs (units (unknown) date) (Ashkenazi Quaker, unknown) [place], [place] Dj[place]ian), Denies Nadja (unknown) (no (unknown) (unknown) Denies other (units (u nknown) date) unknown) (unknown) (no (unknown) (unknown) Denies over the (units (unknown) date) counter unknown) medications, Denies alcohol, Denies illicit drugs and (unknown) (no (unknown) (unknown) Depression: (units (un known) date) discussed unknown) (unknown) (no (unknown) (unknown) Dept at (units (unkno wn) date) . 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), (unknown) (no (unknown) (unknown) Documented By: (units (unknown) date) Lynne Campuzano unknown) 05/24/22 13 (unknown) (no (unknown) (unknown) LORY Calculator (units (unknown) date) unknown) (unknown) (no (unknown) (unknown) EGA Weight BP (units ( unknown) date) UGlucose unknown) (unknown) (no (unknown) (unknown) Encounter for in (units (unknown) date) vitro unknown) fertilization () (unknown) (no (unknown) (unknown) Estimated (units (unkn own) date) Delivery Date unknown) Method Current (unknown) (no (unknown) (unknown) Exercise and (units (u nknown) date) activity, unknown) work/environmental /hazards, Sexual activity, X-ray (unknown) (no (unknown) (unknown) Expected Delivery (units (unknown) date) Route/Plan unknown) (unknown) (no (unknown) (unknown) FM returns to a (units (unknown) date) lot of normal unknown) movement. On exam today, FM seen. Advised her, (unknown) (no (unknown) (unknown) Family History (units (unknown) date) (Updated 01/04/22 unknown) @ 23:06 by Paris Davalos) (unknown) (no (unknown) (unknown) Father of Baby: (units (unknown) date) Gerda unknown) (unknown) (no (unknown) (unknown) [facility]) (unknown) (no (unknown) (unknown) First Trimester (units (unknown) date) Education unknown) Checklist (unknown) (no (unknown) (unknown) (units (unkno wn) date) unknown) (unknown) (no (unknown) (unknown) Genetic Screening (units (unknown) date) + Counseling unknown) (unknown) (no (unknown) (unknown) Genetic Screening (units (unknown) date) unknown) (unknown) (no (unknown) (unknown) Grandfather (units (un known) date) Diabetes mellitus unknown) (unknown) (no (unknown) (unknown) Grandmother (units (un known) date) Breast cancer unknown) (unknown) (no (unknown) (unknown) Grandmother (units (un known) date) Hypertension unknown) (unknown) (no (unknown) (unknown) 2 (units (unkn own) date) Multiple births unknown) (unknown) (no (unknown) (unknown) HIV risk (units (unkno wn) date) evaluation: low unknown) risk (unknown) (no (unknown) (unknown) Health Center (units ( unknown) date) Education unknown) (unknown) (no (unknown) (unknown) Health center (units ( unknown) date) information: unknown) nature of practice discussed, visit schedule (unknown) (no (unknown) (unknown) Height 5 ft 3 in (units (unknown) date) unknown) (unknown) (no (unknown) (unknown) Hepatitis C risk (units (unknown) date) evaluation: low unknown) risk (unknown) (no (unknown) (unknown) History of (units (unk nown) date) Hepatitis B: No unknown) (unknown) (no (unknown) (unknown) History of (units (unk nown) date) Hepatitis C: No unknown) (unknown) (no (unknown) (unknown) History of LEEP (units (unknown) date) procedure unknown) (unknown) (no (unknown) (unknown) 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) unknown) (unknown) (no (unknown) (unknown) Montague's (units (u nknown) date) Chorea, Denies unknown) Other inherited genetic or chromosomal disorder, (unknown) (no (unknown) (unknown) Hx # (units (u nknown) date) Pregnancies unknown) Elective abortions (unknown) (no (unknown) (unknown) Hx # Term (units (unkn own) date) Pregnancies unknown) Ectopic pregnancies (unknown) (no (unknown) (unknown) Hx of (units (unkno wn) date) tonsillectomy unknown) () (unknown) (no (unknown) (unknown) IVF for this (units (u nknown) date) , unknown) declined Echo 02/28/22 32 wk growth US 44% (unknown) (no (unknown) (unknown) Infection History (units (unknown) date) unknown) (unknown) (no (unknown) (unknown) Infection history (units (unknown) date) comments: needs unknown) flu + covid vaccines (unknown) (no (unknown) (unknown) Infectious (units (unk nown) date) Disease Education unknown) (unknown) (no (unknown) (unknown) Infectious (units (unk nown) date) disease exposure: unknown) chicken pox immunity discussed, tuberculosis (unknown) (no (unknown) (unknown) Infertility (units (un known) date) () unknown) (unknown) (no (unknown) (unknown) Initial Weight: (units (unknown) date) 180 lb unknown) (unknown) (no (unknown) (unknown) Initials (units (unkno wn) date) unknown) (unknown) (no (unknown) (unknown) Intake Clinical (units (unknown) date) Staff unknown) (unknown) (no (unknown) (unknown) Intake Note: (units (u nknown) date) unknown) (unknown) (no (unknown) (unknown) Intake performed (units (unknown) date) by: Juliana Manriquez unknown) (unknown) (no (unknown) (unknown) Intake (units (unkno wn) date) unknown) (unknown) (no (unknown) (unknown) Live with someone (units (unknown) date) with TB or exposed unknown) to TB: No (unknown) (no (unknown) (unknown) Loc: [facility] (units (unkno wn) date) unknown) (unknown) (no (unknown) (unknown) 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) () (unknown) (no (unknown) (unknown) Marital status: (units (unknown) date) unknown) (unknown) (no (unknown) (unknown) Medical History (units (unknown) date) (Updated 02/28/22 unknown) @ 08:37 by Lynne Campuzano MD) (unknown) (no (unknown) (unknown) Mother (units (unkno wn) date) Hypertension unknown) (unknown) (no (unknown) (unknown) N 140 15 4wk (units (u nknown) date) unknown) (unknown) (no (unknown) (unknown) N Yes 142 19 girl (units (unknown) date) 4wk unknown) (unknown) (no (unknown) (unknown) N Yes no 143 22 (units (unknown) date) absent 4wk unknown) (unknown) (no (unknown) (unknown) N Yes no 144 27 (units (unknown) date) absent 4 wk unknown) (unknown) (no (unknown) (unknown) N Yes no 144 (units (u nknown) date) Vertex absent EFW unknown) 44%, GOMEZ 14 (unknown) (no (unknown) (unknown) N Yes no 145 30 (units (unknown) date) absent 4wk unknown) (unknown) (no (unknown) (unknown) NF (units (unkno wn) date) unknown) (unknown) (no (unknown) (unknown) No Known Drug (units ( unknown) date) Allergies Allergy unknown) (Unverified 03/28/22 07:56) (unknown) (no (unknown) (unknown) No vaginal (units (unk nown) date) bleeding. No unknown) change in vaginal discharge. No fevers. No vaginal (unknown) (no (unknown) (unknown) Notes (units (unkno wn) date) unknown) (unknown) (no (unknown) (unknown) Number of Living (units (unknown) date) Children unknown) (unknown) (no (unknown) (unknown) Number of (units (unkn own) date) fetuses:: Single unknown) (unknown) (no (unknown) (unknown) Nutrition and (units ( unknown) date) weight gain unknown) counseling: special diet: discussed (unknown) (no (unknown) (unknown) OB Office Visit (units (unknown) date) unknown) (unknown) (no (unknown) (unknown) OB Visit Log (units (u nknown) date) unknown) (unknown) (no (unknown) (unknown) OB check (units (unkno wn) date) unknown) (unknown) (no (unknown) (unknown) On control (units (unknown) date) at conception?: No unknown) (IVF) (unknown) (no (unknown) (unknown) Other Estimates (units (unknown) date) 06/26/22 LMP unknown) (Certain) 35w 2d (unknown) (no (unknown) (unknown) PFSH (units (unkno wn) date) unknown) (unknown) (no (unknown) (unknown) Pap performed?: (units (unknown) date) No unknown) (unknown) (no (unknown) (unknown) Para 0 (units (unkno wn) date) Spontaneous unknown) abortions 1 (unknown) (no (unknown) (unknown) Partner history (units (unknown) date) of STD: denies hx unknown) (unknown) (no (unknown) (unknown) Partner history (units (unknown) date) of genital herpes: unknown) No (unknown) (no (unknown) (unknown) Partner: Bebeto (units (unknown) date) [place] unknown) (unknown) (no (unknown) (unknown) Past Pregnancies (units (unknown) date) unknown) (unknown) (no (unknown) (unknown) Patient is (units (unk nown) date) feeling well. Some unknown) mild cramping. No bleeding. No fevers. (unknown) (no (unknown) (unknown) Patient is (units (unk n) date) feeling well. Some unknown) pressure sensation but no other concerns. (unknown) (no (unknown) (unknown) Patient's age 35 (units (unknown) date) years or older as unknown) of estimated date of delivery: No (unknown) (no (unknown) (unknown) Patient: (units (unkno wn) date) Trini Lorenz unknown) MR#: [id number] (unknown) (no (unknown) (unknown) Personal history (units (unknown) date) of STD: HPV (2015) unknown) (unknown) (no (unknown) (unknown) Personal history (units (unknown) date) of genital herpes: unknown) No (unknown) (no (unknown) (unknown) Position Sitting (units (unknown) date) unknown) (unknown) (no (unknown) (unknown) History (units (unknown) date) unknown) (unknown) (no (unknown) (unknown) type:: (units (unknown) date) Other Normal unknown) (unknown) (no (unknown) (unknown) (units (unkno wn) date) Education unknown) (unknown) (no (unknown) (unknown) Initial (units (unknown) date) Assessment unknown) (unknown) (no (unknown) (unknown) Specific (units (unknown) date) Issues/Plans unknown) (unknown) (no (unknown) (unknown) Testing: (units (unknown) date) discussed unknown) (unknown) (no (unknown) (unknown) Visit (units (unknown) date) unknown) (unknown) (no (unknown) (unknown) (units (unkno wn) date) education packet: unknown) Child education/plan, symptoms, (unknown) (no (unknown) (unknown) Primary Care (units (u nknown) date) Provider: Britt unknown) Sharmaine (unknown) (no (unknown) (unknown) Primary Ob (units (unk nown) date) Provider: unknown) Lynne Campuzano (unknown) (no (unknown) (unknown) Prior (units (unkno wn) date) GBS-Infected unknown) child: No (unknown) (no (unknown) (unknown) Providers (units (unkn own) date) unknown) (unknown) (no (unknown) (unknown) DANYELLE visit 34wk5d. (units (unknown) date) Feeling well. She unknown) reports sometimes a few days of (unknown) (no (unknown) (unknown) DANYELLE@30wk4d. She (units (unknown) date) denies any unknown) problems. She bought an abdominal binder and (unknown) (no (unknown) (unknown) Rash or viral (units ( unknown) date) illness since last unknown) menstrual period: No (unknown) (no (unknown) (unknown) Reason For Visit (units (unknown) date) unknown) (unknown) (no (unknown) (unknown) Recent travel (units ( unknown) date) outside of unknown) country?: No (unknown) (no (unknown) (unknown) Recurrent (units (unkn own) date) loss or unknown) a stillbirth: No (unknown) (no (unknown) (unknown) Routine (units (unkno wn) date) precautions and unknown) normal physiological changes of (unknown) (no (unknown) (unknown) Routine (units (unkno wn) date) precautions unknown) reviewed. (unknown) (no (unknown) (unknown) Rubella nonimmune (units (unknown) date) immunize unknown) (unknown) (no (unknown) (unknown) S/P LEEP (loop (units (unknown) date) electrosurgical unknown) excision procedure) (-08/2014) (unknown) (no (unknown) (unknown) Safety (units (unkno wn) date) unknown) (unknown) (no (unknown) (unknown) Signed By: (units (unk nown) date) <Electronically unknown) signed by Lynne Campuzano MD> (unknown) (no (unknown) (unknown) Signed (units (unkno wn) date) unknown) (unknown) (no (unknown) (unknown) Smoking Status: (units (unknown) date) Never smoker unknown) (unknown) (no (unknown) (unknown) Smoking/Tobacco (units (unknown) date) use: discussed unknown) (unknown) (no (unknown) (unknown) Social History (units (unknown) date) unknown) (unknown) (no (unknown) (unknown) Surgical History (units (unknown) date) (Updated 01/04/22 unknown) @ 23:05 by Paris Davalos) (unknown) (no (unknown) (unknown) Symptoms since (units (unknown) date) LMP: Reports unknown) amenorrhea, nausea, fatigue, urinary frequency, (unknown) (no (unknown) (unknown) TR 174 11 4wk (units ( unknown) date) unknown) (unknown) (no (unknown) (unknown) Tdap status: (units (u nknown) date) immunized unknown) (unknown) (no (unknown) (unknown) Teratogen (units (unkn own) date) Exposures since unknown) LMP/Conception: Denies prescription medications, (unknown) (no (unknown) (unknown) Testing Education (units (unknown) date) unknown) (unknown) (no (unknown) (unknown) Testing education (units (unknown) date) completed: Genetic unknown) testing, group B strep and Cell Free DNA (unknown) (no (unknown) (unknown) This note may (units ( unknown) date) have been all or unknown) partially generated using voice recognition (unknown) (no (unknown) (unknown) Tobacco + (units (unkn own) date) Substance Use unknown) (unknown) (no (unknown) (unknown) Tobacco Status (units (unknown) date) unknown) (unknown) (no (unknown) (unknown) Trimester:: 3rd (units (unknown) date) Trimester unknown) (28wks-Del) (unknown) (no (unknown) (unknown) Type(s) of (units (unk nown) date) exercise: none unknown) (unknown) (no (unknown) (unknown) Typically feels (units (unknown) date) in the a.m.. Only unknown) feeling occasionally, nothing routinely. I (unknown) (no (unknown) (unknown) UProtein Movement (units (unknown) date) PreLabor FHR Fndl unknown) Ht Pres Edema Cerv Exam US/Comment Next Appt (unknown) (no (unknown) (unknown) Ultrasound (units (unk nown) date) Details:: Prior 7 unknown) week 3 day ultrasound at IVF on 11/15/21 clinic (unknown) (no (unknown) (unknown) Ultrasound (units (unk nown) date) performed?: No unknown) (unknown) (no (unknown) (unknown) Ultrasound (units (unk nown) date) unknown) (unknown) (no (unknown) (unknown) Vaginal (units (unkno wn) date) unknown) (unknown) (no (unknown) (unknown) Varicella/chicken (units (unknown) date) pox status: unknown) immunized and previous disease (mild case as (unknown) (no (unknown) (unknown) Visit Date: (units (un known) date) 12/08/21 Last unknown) Updated by: Carrie Pichardo MD (unknown) (no (unknown) (unknown) Visit Date: (units (un known) date) 01/05/22 Last unknown) Updated by: Carrie Pichardo MD (unknown) (no (unknown) (unknown) Visit Date: (units (un known) date) 02/02/22 Last unknown) Updated by: Carrie Pichardo MD (unknown) (no (unknown) (unknown) Visit Date: (units (un known) date) 02/28/22 Last unknown) Updated by: Lynne Campuzano MD (unknown) (no (unknown) (unknown) Visit Date: (units (un known) date) 03/28/22 Last unknown) Updated by: Lynne Campuzano MD (unknown) (no (unknown) (unknown) Visit Date: (units (un known) date) 04/25/22 Last unknown) Updated by: Lynne Campuzano MD (unknown) (no (unknown) (unknown) Visit Date: (units (un known) date) 05/10/22 Last unknown) Updated by: Lynne Campuzano MD (unknown) (no (unknown) (unknown) Visit Date: (units (un known) date) 05/24/22 Last unknown) Updated by: Lynne Campuzano MD (unknown) (no (unknown) (unknown) Visit Reasons: OB (units (unknown) date) check unknown) (unknown) (no (unknown) (unknown) Vitals (units (unkno wn) date) unknown) (unknown) (no (unknown) (unknown) Vitamins and (units (u nknown) date) iron, Diet and unknown) weight gain, Fish and mercury intake, Caffeine use, (unknown) (no (unknown) (unknown) WG (units (unkno wn) date) unknown) (unknown) (no (unknown) (unknown) Weeks gestation:: (units (unknown) date) 34 unknown) (unknown) (no (unknown) (unknown) Weight 219 lb (units ( unknown) date) unknown) (unknown) (no (unknown) (unknown) Millis teeth (units (u nknown) date) extracted () unknown) (unknown) (no (unknown) (unknown) Yes no 140 Vertex (units (unknown) date) absent 2wk unknown) (unknown) (no (unknown) (unknown) Zika virus (units (unk nown) date) exposure: No unknown) (unknown) (no (unknown) (unknown) after she (units (unkn own) date) hydrates. No unknown) persistent cramping, ctx, LOF or VB. Discussed GBS (unknown) (no (unknown) (unknown) alcohol intake: (units (unknown) date) former unknown) (unknown) (no (unknown) (unknown) amh (units (unkno wn) date) unknown) (unknown) (no (unknown) (unknown) and office visits (units (unknown) date) unknown) (unknown) (no (unknown) (unknown) anyone in either (units (unknown) date) family with: unknown) (unknown) (no (unknown) (unknown) baby's father had (units (unknown) date) a child with unknown) defects not listed above and Denies Other (unknown) (no (unknown) (unknown) bleeding. She is (units (unknown) date) feeling baby move. unknown) Routine precautions reviewed. (unknown) (no (unknown) (unknown) caffeine: Yes (units ( unknown) date) (aware of 200mg unknown) daily limit) (unknown) (no (unknown) (unknown) carbon monox (units (u nknown) date) detector in home: unknown) Yes (unknown) (no (unknown) (unknown) child) (units (unkno wn) date) unknown) (unknown) (no (unknown) (unknown) concerns with (units ( unknown) date) COVID infection unknown) and and urged patient to consider (unknown) (no (unknown) (unknown) consistent with (units (unknown) date) dates. unknown) (unknown) (no (unknown) (unknown) cramping, vaginal (units (unknown) date) bleeding or unknown) leakage of fluid. Doing her Glucola today. (unknown) (no (unknown) (unknown) current (units (unkno wn) date) occupational unknown) exposures/hazards: No (unknown) (no (unknown) (unknown) cy (units (unkno wn) date) unknown) (unknown) (no (unknown) (unknown) cytotec (units (unkno wn) date) unknown) (unknown) (no (unknown) (unknown) daily servings (units (unknown) date) fruits/ve-4 unknown) (unknown) (no (unknown) (unknown) declined referral (units (unknown) date) for unknown) echocardiogram for IVF . (unknown) (no (unknown) (unknown) discussed (units (unkn own) date) increased fiber in unknown) diet. May use MiraLax. No uterine type cramping, (unknown) (no (unknown) (unknown) discussed with (units (unknown) date) the patient. unknown) Patient is not COVID vaccinated. Discussed (unknown) (no (unknown) (unknown) disorders, Denies (units (unknown) date) Cystic Fibrosis, unknown) Denies Mental Retardation/Autism , Denies (unknown) (no (unknown) (unknown) do you feel safe (units (unknown) date) at home: Yes unknown) (unknown) (no (unknown) (unknown) drops of urine, (units (unknown) date) does feel it is unknown) from the bladder. No vaginal leakage of fluid (unknown) (no (unknown) (unknown) during the past (units (unknown) date) year weight has: unknown) decreased > 10 lbs (lost 30 lbs) (unknown) (no (unknown) (unknown) eating out: (units (un known) date) rarely or never unknown) (unknown) (no (unknown) (unknown) education level: (units (unknown) date) college unknown) (unknown) (no (unknown) (unknown) exposure (units (unkno wn) date) discussed, CMV unknown) discussed, Toxoplasmosis precautions, Listeriosis (unknown) (no (unknown) (unknown) exposure, (units (unkn own) date) Medication use, unknown) Sauna/hot tub use, Dental care and Travel (unknown) (no (unknown) (unknown) feeling some less (units (unknown) date) movement, but she unknown) does kick counts and gets enough kicks, then (unknown) (no (unknown) (unknown) feeling some upper (units (unknown) date) discomfort when unknown) standing, but some muscle support tape to try (unknown) (no (unknown) (unknown) feels better with (units (unknown) date) using this when on unknown) her feet. Feeling good movement. No (unknown) (no (unknown) (unknown) fire extinguisher (units (unknown) date) in home: No unknown) (unknown) (no (unknown) (unknown) firearms in home: (units (unknown) date) No unknown) (unknown) (no (unknown) (unknown) frequency: does (units (unknown) date) not exercise unknown) (unknown) (no (unknown) (unknown) frequent, then to (units (unknown) date) call. Occasionally unknown) feeling vaginal pressure when she sits, (unknown) (no (unknown) (unknown) getting the (units (un known) date) vaccine in unknown) . (unknown) (no (unknown) (unknown) have occurred. If (units (unknown) date) there are any unknown) questions, please contact the Medical Records (unknown) (no (unknown) (unknown) her in for NST. (units (unknown) date) Feels some cramps unknown) in the morning after wakening, then results (unknown) (no (unknown) (unknown) here. No other (units (unknown) date) problems. Feeling unknown) good movement. No contractions, (unknown) (no (unknown) (unknown) household (units (unkn own) date) members: spouse unknown) (unknown) (no (unknown) (unknown) housing: house (units (unknown) date) unknown) (unknown) (no (unknown) (unknown) if she does ever (units (unknown) date) feel significantly unknown) less, then definitely call and will bring (unknown) (no (unknown) (unknown) irritability, (units ( unknown) date) bloating and other unknown) (headaches + constipation) (unknown) (no (unknown) (unknown) leakage of fluid, (units (unknown) date) vaginal bleeding unknown) or abnormal vaginal discharge. Feeling (unknown) (no (unknown) (unknown) marital status: (units (unknown) date) unknown) (unknown) (no (unknown) (unknown) may occur. (units (unk nown) date) Occasional unknown) wrong-word or 'sound-alike' substitutions may have (unknown) (no (unknown) (unknown) medication (units (unk nown) date) options during unknown) labor. Tdap given today. (unknown) (no (unknown) (unknown) normal Glucola, (units (unknown) date) hemoglobin was unknown) 11.8. Questions answered regarding pain (unknown) (no (unknown) (unknown) noted cramping, (units (unknown) date) contractions, unknown) vaginal bleeding or leakage of fluid. She had a (unknown) (no (unknown) (unknown) nothing (units (unkno wn) date) persistent. unknown) Feeling good movement. Occasionally leaking few (unknown) (no (unknown) (unknown) number of (units (unkn own) date) children: 0 unknown) (unknown) (no (unknown) (unknown) occupational (units (u nknown) date) status: unemployed unknown) (unknown) (no (unknown) (unknown) occurred due to (units (unknown) date) the inherent unknown) limitations of voice recognition software. Please (unknown) (no (unknown) (unknown) or bleeding. No (units (unknown) date) persistent unknown) cramping. Ultrasound for EFW today due to IVF (unknown) (no (unknown) (unknown) other problems. (units (unknown) date) Tried 1 Colace unknown) daily without improvement. Discussed increase (unknown) (no (unknown) (unknown) pets and animals: (units (unknown) date) Yes (2 dogs) unknown) (unknown) (no (unknown) (unknown) . EFW 44 (units (unknown) date) percentile, 2022 unknown) g, 4 lb 7 oz. GOMEZ 14.6. (unknown) (no (unknown) (unknown) prevention and (units (unknown) date) Rubella unknown) Immunization (unknown) (no (unknown) (unknown) read the note (units ( unknown) date) carefully and unknown) recognize, using context, where these substitutions (unknown) (no (unknown) (unknown) reviewed had a (units (unknown) date) palpate for unknown) contractions, and if having every 10 minutes or more (unknown) (no (unknown) (unknown) reviewed, (units (unkn own) date) coverage 24 hours unknown) a day and participation of father in care (unknown) (no (unknown) (unknown) routine (units ( unknown) date) movement. She will unknown) do her Glucola/H/H next visit. Offered, (unknown) (no (unknown) (unknown) screen next (units (un known) date) visit. unknown) (unknown) (no (unknown) (unknown) seatbelt use: (units ( unknown) date) always unknown) (unknown) (no (unknown) (unknown) second hand (units (un known) date) exposure: No unknown) (unknown) (no (unknown) (unknown) she is feeling (units ( unknown) date) Bc Joy or unknown) the baby, when feels tight in the upper abdomen. (unknown) (no (unknown) (unknown) software. 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 After (units (unknown) date) review, may need unknown) to increase water intake recently, and (unknown) (no (unknown) (unknown) to use as an (units (u nknown) date) abdominal binder. unknown) Will try to fit her for an abdominal binder (unknown) (no (unknown) (unknown) travel history: (units (unknown) date) recent ([place] unknown) 12/2020) (unknown) (no (unknown) (unknown) water heater temp (units (unknown) date) set < 120 deg: No unknown) (unsure) (unknown) (no (unknown) (unknown) well-balanced (units ( unknown) date) diet: about half unknown) the time (unknown) (no (unknown) (unknown) working smoke (units ( unknown) date) detector in home: unknown) Yes Result panel 332 (unknown) (no (unknown) (unknown) (no value) (units (unk nown) date) unknown) (unknown) (no (unknown) (unknown) (+18 lb) 102/68 N (units (unknown) date) unknown) (unknown) (no (unknown) (unknown) (+26 lb) 128/72 N (units (unknown) date) unknown) (unknown) (no (unknown) (unknown) (+3 lb) 110/70 N (units (unknown) date) unknown) (unknown) (no (unknown) (unknown) (+32 lb) 110/72 1 (units (unknown) date) unknown) (unknown) (no (unknown) (unknown) (+36 lb) 114/64 N (units (unknown) date) unknown) (unknown) (no (unknown) (unknown) (+39 lb) 104/70 (units (unknown) date) TR unknown) (unknown) (no (unknown) (unknown) (+6 lb) 104/66 TR (units (unknown) date) unknown) (unknown) (no (unknown) (unknown) (+9 lb) 108/78 N (units (unknown) date) unknown) (unknown) (no (unknown) (unknown) Genetic (units (unkn own) date) Screening/Teratolo unknown) gy Counseling - Includes patient, baby's father, or (unknown) (no (unknown) (unknown) -?-?-?-?-?-?-?-?- (units (unknown) date) ?-?-?-? unknown) (unknown) (no (unknown) (unknown) 12/08/2021 (units (unk nown) date) Caceres viable unknown) intrauterine gestation size equal to dates (unknown) (no (unknown) (unknown) 12/08/21 (units (unkno wn) date) unknown) (unknown) (no (unknown) (unknown) 01/05/22 (units (unkno wn) date) unknown) (unknown) (no (unknown) (unknown) 02/02/22 (units (unkno wn) date) unknown) (unknown) (no (unknown) (unknown) 02/17/19 8 (units (unk nown) date) spontaneous unknown) (unknown) (no (unknown) (unknown) 02/28/22 (units (unkno wn) date) unknown) (unknown) (no (unknown) (unknown) 07:54 (units (unkno wn) date) unknown) (unknown) (no (unknown) (unknown) 03/28/22 (units (unkno wn) date) unknown) (unknown) (no (unknown) (unknown) 04/25/22 (units (unkno wn) date) unknown) (unknown) (no (unknown) (unknown) 05/10/22 (units (unkno wn) date) unknown) (unknown) (no (unknown) (unknown) 05/24/22 (units (unkno wn) date) unknown) (unknown) (no (unknown) (unknown) 06/07/22 (units (unkno wn) date) unknown) (unknown) (no (unknown) (unknown) 06/07/22] (units (unkn own) date) unknown) (unknown) (no (unknown) (unknown) 10w 6d 183 lb (units ( unknown) date) unknown) (unknown) (no (unknown) (unknown) 07/01/22 (units (unkno wn) date) Ultrasound #1 36w unknown) 4d (unknown) (no (unknown) (unknown) 14w 6d 186 lb (units ( unknown) date) unknown) (unknown) (no (unknown) (unknown) 18w 6d 189 lb (units ( unknown) date) unknown) (unknown) (no (unknown) (unknown) 22w 4d 198 lb (units ( unknown) date) unknown) (unknown) (no (unknown) (unknown) 26w 4d 206 lb (units ( unknown) date) unknown) (unknown) (no (unknown) (unknown) 26wk4d. Pt with (units (unknown) date) some abdominal unknown) musculoskeletal discomfort, lower and (unknown) (no (unknown) (unknown) [id number], IVF (units ( unknown) date) , at unknown) 22wks here for DANYELLE visit. Constipation, no (unknown) (no (unknown) (unknown) 2wk (units (unkno wn) date) unknown) (unknown) (no (unknown) (unknown) 30w 4d 212 lb (units ( unknown) date) unknown) (unknown) (no (unknown) (unknown) 32w 5d 216 lb (units ( unknown) date) unknown) (unknown) (no (unknown) (unknown) 32wk5d. Trini (units (unknown) date) questions how to unknown) feel contractions, uncertain at times if (unknown) (no (unknown) (unknown) 34w 5d 219 lb (units ( unknown) date) unknown) (unknown) (no (unknown) (unknown) [id number] (units (unkno wn) date) unknown) (unknown) (no (unknown) (unknown) 53 (units (unkno wn) date) unknown) (unknown) (no (unknown) (unknown) Abnormal Pap (units (u nknown) date) smear of cervix unknown) (-2013) (unknown) (no (unknown) (unknown) Abnormal lab (units (u nknown) date) values 1st unknown) trimester: discussed (unknown) (no (unknown) (unknown) Add'l Plan (units (unk nown) date) Details unknown) (unknown) (no (unknown) (unknown) Age/Sex: 27 / F (units (unknown) date) Date of Service: unknown) (unknown) (no (unknown) (unknown) Allergies (units (unkn own) date) unknown) (unknown) (no (unknown) (unknown) [place], [place] (units ( unknown) date) [id number] unknown) (unknown) (no (unknown) (unknown) Anesthesia (units (unk nown) date) unknown) (unknown) (no (unknown) (unknown) Aneuploidy (units (unk nown) date) Screening Offered: unknown) Declined (unknown) (no (unknown) (unknown) Anticipated (units (un known) date) course of unknown) care: discussed (unknown) (no (unknown) (unknown) Assessment and (units (unknown) date) Plan unknown) (unknown) (no (unknown) (unknown) Attending Dr: Lynne (units (unknown) date) Sirisha Campuzano MD unknown) (unknown) (no (unknown) (unknown) BMI 39.4 (units (unkno wn) date) unknown) (unknown) (no (unknown) (unknown) BP 122/68 (units (unkn own) date) unknown) (unknown) (no (unknown) (unknown) (units (unkno wn) date) Plan/Preferences unknown) (unknown) (no (unknown) (unknown) Planning (units (unknown) date) unknown) (unknown) (no (unknown) (unknown) Blood Pressure (units (unknown) date) Location Lt unknown) brachial (unknown) (no (unknown) (unknown) Blood (units (unkno wn) date) transfusions?: yes unknown) (never had but willing to accept) (unknown) (no (unknown) (unknown) Breastfeed Preg (units (unknown) date) Comp Name unknown) (unknown) (no (unknown) (unknown) Childbirth (units (unk nown) date) Classes: discussed unknown) (unknown) (no (unknown) (unknown) Current Estimate (units (unknown) date) 06/30/22 Manual unknown) 36w 5d IVF pregnan (unknown) (no (unknown) (unknown) Current (units (unknown) date) History unknown) (unknown) (no (unknown) (unknown) : 1995 (units (unknown) date) Acct:[id number] unknown) (unknown) (no (unknown) (unknown) Date of positive (units (unknown) date) home unknown) test: 10/16/21 (unknown) (no (unknown) (unknown) Date (units (unkno wn) date) unknown) (unknown) (no (unknown) (unknown) Del. Date (units (unkn own) date) GA/Weeks Labor unknown) Lgth Wt Sex Route Outcome Anesthesia Place (unknown) (no (unknown) (unknown) Delivery Date: (units (unknown) date) 02/17/19 Last unknown) Updated by: Juhi Hayes R.N. (unknown) (no (unknown) (unknown) Delv (units (unkno wn) date) unknown) (unknown) (no (unknown) (unknown) Denies Congenital (units (unknown) date) Heart Defect, unknown) Denies Down Syndrome, Denies Muscular Dystrophy, (unknown) (no (unknown) (unknown) Denies Maternal (units (unknown) date) Metabolic Disorder unknown) (EG,TYPE 1 Diabetes, PKU), Denies Patient or (unknown) (no (unknown) (unknown) Denies Neural (units ( unknown) date) Tube Defect unknown) (Meningomyelocele, Spina Bifida, or Anencephaly), (unknown) (no (unknown) (unknown) Denies Sickle (units ( unknown) date) Cell Disease or unknown) Trait (), Denies Hemophilia or other blood (unknown) (no (unknown) (unknown) Denies Epifanio-Sachs (units (unknown) date) (Ashkenazi Quaker, unknown) [place], [place]), Denies Nadja (unknown) (no (unknown) (unknown) Denies other (units (u nknown) date) unknown) (unknown) (no (unknown) (unknown) Denies over the (units (unknown) date) counter unknown) medications, Denies alcohol, Denies illicit drugs and (unknown) (no (unknown) (unknown) Depression: (units (un known) date) discussed unknown) (unknown) (no (unknown) (unknown) Dept at (units (unkno wn) date) . 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), (unknown) (no (unknown) (unknown) Documented By: (units (unknown) date) Lynne Campuzano unknown) 06/07/22 07 (unknown) (no (unknown) (unknown) Draft (units (unkno wn) date) unknown) (unknown) (no (unknown) (unknown) LORY Calculator (units (unknown) date) unknown) (unknown) (no (unknown) (unknown) EGA Weight BP (units ( unknown) date) UGlucose unknown) (unknown) (no (unknown) (unknown) Encounter for in (units (unknown) date) vitro unknown) fertilization () (unknown) (no (unknown) (unknown) Estimated (units (unkn own) date) Delivery Date unknown) Method Current (unknown) (no (unknown) (unknown) Exercise and (units (u nknown) date) activity, unknown) work/environmental /hazards, Sexual activity, X-ray (unknown) (no (unknown) (unknown) Expected Delivery (units (unknown) date) Route/Plan unknown) (unknown) (no (unknown) (unknown) FM returns to a (units (unknown) date) lot of normal unknown) movement. On exam today, FM seen. Advised her, (unknown) (no (unknown) (unknown) Family History (units (unknown) date) (Updated 01/04/22 unknown) @ 23:06 by Paris Davalos) (unknown) (no (unknown) (unknown) Father of Baby: (units (unknown) date) Gerda unknown) (unknown) (no (unknown) (unknown) [facility]) (unknown) (no (unknown) (unknown) First Trimester (units (unknown) date) Education unknown) Checklist (unknown) (no (unknown) (unknown) (units (unkno wn) date) unknown) (unknown) (no (unknown) (unknown) Genetic Screening (units (unknown) date) + Counseling unknown) (unknown) (no (unknown) (unknown) Genetic Screening (units (unknown) date) unknown) (unknown) (no (unknown) (unknown) Grandfather (units (un known) date) Diabetes mellitus unknown) (unknown) (no (unknown) (unknown) Grandmother (units (un known) date) Breast cancer unknown) (unknown) (no (unknown) (unknown) Grandmother (units (un known) date) Hypertension unknown) (unknown) (no (unknown) (unknown) 2 (units (unkn own) date) Multiple births unknown) (unknown) (no (unknown) (unknown) HIV risk (units (unkno wn) date) evaluation: low unknown) risk (unknown) (no (unknown) (unknown) Health Center (units ( unknown) date) Education unknown) (unknown) (no (unknown) (unknown) Health center (units ( unknown) date) information: unknown) nature of practice discussed, visit schedule (unknown) (no (unknown) (unknown) Height 5 ft 3 in (units (unknown) date) unknown) (unknown) (no (unknown) (unknown) Hepatitis C risk (units (unknown) date) evaluation: low unknown) risk (unknown) (no (unknown) (unknown) History of (units (unk nown) date) Hepatitis B: No unknown) (unknown) (no (unknown) (unknown) History of (units (unk nown) date) Hepatitis C: No unknown) (unknown) (no (unknown) (unknown) History of LEEP (units (unknown) date) procedure unknown) (unknown) (no (unknown) (unknown) Human papilloma (units (unknown) date) virus () unknown) (unknown) (no (unknown) (unknown) Montague's (units (u nknown) date) Chorea, Denies unknown) Other inherited genetic or chromosomal disorder, (unknown) (no (unknown) (unknown) Hx # (units (u nknown) date) Pregnancies unknown) Elective abortions (unknown) (no (unknown) (unknown) Hx # Term (units (unkn own) date) Pregnancies unknown) Ectopic pregnancies (unknown) (no (unknown) (unknown) Hx of (units (unkno wn) date) tonsillectomy unknown) () (unknown) (no (unknown) (unknown) IVF for this (units (u nknown) date) , unknown) declined Echo 02/28/22 32 wk growth US 44% (unknown) (no (unknown) (unknown) Infection History (units (unknown) date) unknown) (unknown) (no (unknown) (unknown) Infection history (units (unknown) date) comments: needs unknown) flu + covid vaccines (unknown) (no (unknown) (unknown) Infectious (units (unk nown) date) Disease Education unknown) (unknown) (no (unknown) (unknown) Infectious (units (unk nown) date) disease exposure: unknown) chicken pox immunity discussed, tuberculosis (unknown) (no (unknown) (unknown) 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) unknown) (unknown) (no (unknown) (unknown) Initial Weight: (units (unknown) date) 180 lb unknown) (unknown) (no (unknown) (unknown) Initials (units (unkno wn) date) unknown) (unknown) (no (unknown) (unknown) Intake Clinical (units (unknown) date) Staff unknown) (unknown) (no (unknown) (unknown) Intake Note: (units (u nknown) date) unknown) (unknown) (no (unknown) (unknown) Intake performed (units (unknown) date) by: Tricia Adan unknown) (unknown) (no (unknown) (unknown) Intake (units (unkno wn) date) unknown) (unknown) (no (unknown) (unknown) Live with someone (units (unknown) date) with TB or exposed unknown) to TB: No (unknown) (no (unknown) (unknown) Loc: [facility] (units (unkno wn) date) unknown) (unknown) (no (unknown) (unknown) 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) () (unknown) (no (unknown) (unknown) Marital status: (units (unknown) date) unknown) (unknown) (no (unknown) (unknown) Medical History (units (unknown) date) (Updated 02/28/22 unknown) @ 08:37 by Lynne Campuzano MD) (unknown) (no (unknown) (unknown) Medications (units (un known) date) unknown) (unknown) (no (unknown) (unknown) Mother (units (unkno wn) date) Hypertension unknown) (unknown) (no (unknown) (unknown) N 140 15 4wk (units (u nknown) date) unknown) (unknown) (no (unknown) (unknown) N Yes 142 19 girl (units (unknown) date) 4wk unknown) (unknown) (no (unknown) (unknown) N Yes no 140 (units (u nknown) date) Vertex absent 2wk unknown) (unknown) (no (unknown) (unknown) N Yes no 143 22 (units (unknown) date) absent 4wk unknown) (unknown) (no (unknown) (unknown) N Yes no 144 27 (units (unknown) date) absent 4 wk unknown) (unknown) (no (unknown) (unknown) N Yes no 144 (units (u nknown) date) Vertex absent EFW unknown) 44%, GOMEZ 14 (unknown) (no (unknown) (unknown) N Yes no 145 30 (units (unknown) date) absent 4wk unknown) (unknown) (no (unknown) (unknown) NF (units (unkno wn) date) unknown) (unknown) (no (unknown) (unknown) No Known Drug (units ( unknown) date) Allergies Allergy unknown) (Unverified 06/07/22 07:54) (unknown) (no (unknown) (unknown) No vaginal (units (unk nown) date) bleeding. No unknown) change in vaginal discharge. No fevers. No vaginal (unknown) (no (unknown) (unknown) Notes (units (unkno wn) date) unknown) (unknown) (no (unknown) (unknown) Number of Living (units (unknown) date) Children unknown) (unknown) (no (unknown) (unknown) Number of (units (unkn own) date) fetuses:: Single unknown) (unknown) (no (unknown) (unknown) Nutrition and (units ( unknown) date) weight gain unknown) counseling: special diet: discussed (unknown) (no (unknown) (unknown) OB Office Visit (units (unknown) date) unknown) (unknown) (no (unknown) (unknown) OB Visit Log (units (u nknown) date) unknown) (unknown) (no (unknown) (unknown) On control (units (unknown) date) at conception?: No unknown) (IVF) (unknown) (no (unknown) (unknown) Other Estimates (units (unknown) date) 06/26/22 LMP unknown) (Certain) 37w 2d (unknown) (no (unknown) (unknown) PFSH (units (unkno wn) date) unknown) (unknown) (no (unknown) (unknown) Para 0 (units (unkno wn) date) Spontaneous unknown) abortions 1 (unknown) (no (unknown) (unknown) Partner history (units (unknown) date) of STD: denies hx unknown) (unknown) (no (unknown) (unknown) Partner history (units (unknown) date) of genital herpes: unknown) No (unknown) (no (unknown) (unknown) Partner: Bebeto (units (unknown) date) [place] unknown) (unknown) (no (unknown) (unknown) Past Pregnancies (units (unknown) date) unknown) (unknown) (no (unknown) (unknown) Patient is (units (unk nown) date) feeling well. Some unknown) mild cramping. No bleeding. No fevers. (unknown) (no (unknown) (unknown) Patient is (units (unk n) date) feeling well. Some unknown) pressure sensation but no other concerns. (unknown) (no (unknown) (unknown) Patient's age 35 (units (unknown) date) years or older as unknown) of estimated date of delivery: No (unknown) (no (unknown) (unknown) Patient: (units (unkno wn) date) Trini Lorenz unknown) MR#: [id number] (unknown) (no (unknown) (unknown) Personal history (units (unknown) date) of STD: HPV (2015) unknown) (unknown) (no (unknown) (unknown) Personal history (units (unknown) date) of genital herpes: unknown) No (unknown) (no (unknown) (unknown) Position Sitting (units (unknown) date) unknown) (unknown) (no (unknown) (unknown) History (units (unknown) date) unknown) (unknown) (no (unknown) (unknown) type:: (units (unknown) date) Other Normal unknown) (unknown) (no (unknown) (unknown) (units (unkno wn) date) Education unknown) (unknown) (no (unknown) (unknown) Initial (units (unknown) date) Assessment unknown) (unknown) (no (unknown) (unknown) Specific (units (unknown) date) Issues/Plans unknown) (unknown) (no (unknown) (unknown) Testing: (units (unknown) date) discussed unknown) (unknown) (no (unknown) (unknown) Visit (units (unknown) date) unknown) (unknown) (no (unknown) (unknown) (units (unkno wn) date) education packet: unknown) Child education/plan, symptoms, (unknown) (no (unknown) (unknown) Primary Care (units (u nknown) date) Provider: Britt unknown) Sharmaine (unknown) (no (unknown) (unknown) Primary Ob (units (unk nown) date) Provider: unknown) Lynne Campuzano (unknown) (no (unknown) (unknown) Prior (units (unkno wn) date) GBS-Infected unknown) child: No (unknown) (no (unknown) (unknown) Providers (units (unkn own) date) unknown) (unknown) (no (unknown) (unknown) Pt here for OB (units (unknown) date) Check unknown) (unknown) (no (unknown) (unknown) DANYELLE visit 34wk5d. (units (unknown) date) Feeling well. She unknown) reports sometimes a few days of (unknown) (no (unknown) (unknown) DANYELLE@30wk4d. She (units (unknown) date) denies any unknown) problems. She bought an abdominal binder and (unknown) (no (unknown) (unknown) Rash or viral (units ( unknown) date) illness since last unknown) menstrual period: No (unknown) (no (unknown) (unknown) Reason For Visit (units (unknown) date) unknown) (unknown) (no (unknown) (unknown) Recent travel (units ( unknown) date) outside of unknown) country?: No (unknown) (no (unknown) (unknown) Recurrent (units (unkn own) date) loss or unknown) a stillbirth: No (unknown) (no (unknown) (unknown) Routine (units (unkno wn) date) precautions and unknown) normal physiological changes of (unknown) (no (unknown) (unknown) Routine (units (unkno wn) date) precautions unknown) reviewed. (unknown) (no (unknown) (unknown) Rubella nonimmune (units (unknown) date) immunize unknown) (unknown) (no (unknown) (unknown) S/P LEEP (loop (units (unknown) date) electrosurgical unknown) excision procedure) () (unknown) (no (unknown) (unknown) Safety (units (unkno wn) date) unknown) (unknown) (no (unknown) (unknown) Signed By: (units (unk nown) date) unknown) (unknown) (no (unknown) (unknown) Smoking Status: (units (unknown) date) Never smoker unknown) (unknown) (no (unknown) (unknown) Smoking/Tobacco (units (unknown) date) use: discussed unknown) (unknown) (no (unknown) (unknown) Social History (units (unknown) date) unknown) (unknown) (no (unknown) (unknown) Surgical History (units (unknown) date) (Updated 01/04/22 unknown) @ 23:05 by Paris Davalos) (unknown) (no (unknown) (unknown) Symptoms since (units (unknown) date) LMP: Reports unknown) amenorrhea, nausea, fatigue, urinary frequency, (unknown) (no (unknown) (unknown) TR 174 11 4wk (units ( unknown) date) unknown) (unknown) (no (unknown) (unknown) Tdap status: (units (u nknown) date) immunized unknown) (unknown) (no (unknown) (unknown) Teratogen (units (unkn own) date) Exposures since unknown) LMP/Conception: Denies prescription medications, (unknown) (no (unknown) (unknown) Testing Education (units (unknown) date) unknown) (unknown) (no (unknown) (unknown) Testing education (units (unknown) date) completed: Genetic unknown) testing, group B strep and Cell Free DNA (unknown) (no (unknown) (unknown) This note may (units ( unknown) date) have been all or unknown) partially generated using voice recognition (unknown) (no (unknown) (unknown) Tobacco + (units (unkn own) date) Substance Use unknown) (unknown) (no (unknown) (unknown) Tobacco Status (units (unknown) date) unknown) (unknown) (no (unknown) (unknown) Trimester:: 3rd (units (unknown) date) Trimester unknown) (28wks-Del) (unknown) (no (unknown) (unknown) Type(s) of (units (unk nown) date) exercise: none unknown) (unknown) (no (unknown) (unknown) Typically feels (units (unknown) date) in the a.m.. Only unknown) feeling occasionally, nothing routinely. I (unknown) (no (unknown) (unknown) UProtein Movement (units (unknown) date) PreLabor FHR Fndl unknown) Ht Pres Edema Cerv Exam US/Comment Next Appt (unknown) (no (unknown) (unknown) Ultrasound (units (unk nown) date) Details:: Prior 7 unknown) week 3 day ultrasound at IVF on 11/15/21 clinic (unknown) (no (unknown) (unknown) Ultrasound (units (unk nown) date) unknown) (unknown) (no (unknown) (unknown) Vaginal (units (unkno wn) date) unknown) (unknown) (no (unknown) (unknown) Varicella/chicken (units (unknown) date) pox status: unknown) immunized and previous disease (mild case as (unknown) (no (unknown) (unknown) Visit Date: (units (un known) date) 12/08/21 Last unknown) Updated by: Carrie Pichardo MD (unknown) (no (unknown) (unknown) Visit Date: (units (un known) date) 01/05/22 Last unknown) Updated by: Carrie Pichardo MD (unknown) (no (unknown) (unknown) Visit Date: (units (un known) date) 02/02/22 Last unknown) Updated by: Carrie Pichardo MD (unknown) (no (unknown) (unknown) Visit Date: (units (un known) date) 02/28/22 Last unknown) Updated by: Lynne Campuzano MD (unknown) (no (unknown) (unknown) Visit Date: (units (un known) date) 03/28/22 Last unknown) Updated by: Lynne Campuzano MD (unknown) (no (unknown) (unknown) Visit Date: (units (un known) date) 04/25/22 Last unknown) Updated by: Lynne Campuzano MD (unknown) (no (unknown) (unknown) Visit Date: (units (un known) date) 05/10/22 Last unknown) Updated by: Lynne Campuzano MD (unknown) (no (unknown) (unknown) Visit Date: (units (un known) date) 05/24/22 Last unknown) Updated by: Lynne Campuzano MD (unknown) (no (unknown) (unknown) Visit Reasons: OB (units (unknown) date) check unknown) (unknown) (no (unknown) (unknown) Vitals (units (unkno wn) date) unknown) (unknown) (no (unknown) (unknown) Vitamins and (units (u nknown) date) iron, Diet and unknown) weight gain, Fish and mercury intake, Caffeine use, (unknown) (no (unknown) (unknown) WG (units (unkno wn) date) unknown) (unknown) (no (unknown) (unknown) Weeks gestation:: (units (unknown) date) 36 unknown) (unknown) (no (unknown) (unknown) Weight 223 lb (units ( unknown) date) unknown) (unknown) (no (unknown) (unknown) Millis teeth (units (u nknown) date) extracted () unknown) (unknown) (no (unknown) (unknown) Zika virus (units (unk nown) date) exposure: No unknown) (unknown) (no (unknown) (unknown) after she (units (unkn own) date) hydrates. No unknown) persistent cramping, ctx, LOF or VB. Discussed GBS (unknown) (no (unknown) (unknown) alcohol intake: (units (unknown) date) former unknown) (unknown) (no (unknown) (unknown) amh (units (unkno wn) date) unknown) (unknown) (no (unknown) (unknown) and office visits (units (unknown) date) unknown) (unknown) (no (unknown) (unknown) anyone in either (units (unknown) date) family with: unknown) (unknown) (no (unknown) (unknown) baby's father had (units (unknown) date) a child with unknown) defects not listed above and Denies Other (unknown) (no (unknown) (unknown) bleeding. She is (units (unknown) date) feeling baby move. unknown) Routine precautions reviewed. (unknown) (no (unknown) (unknown) caffeine: Yes (units ( unknown) date) (aware of 200mg unknown) daily limit) (unknown) (no (unknown) (unknown) carbon monox (units (u nknown) date) detector in home: unknown) Yes (unknown) (no (unknown) (unknown) child) (units (unkno wn) date) unknown) (unknown) (no (unknown) (unknown) concerns with (units ( unknown) date) COVID infection unknown) and and urged patient to consider (unknown) (no (unknown) (unknown) consistent with (units (unknown) date) dates. unknown) (unknown) (no (unknown) (unknown) cramping, vaginal (units (unknown) date) bleeding or unknown) leakage of fluid. Doing her Glucola today. (unknown) (no (unknown) (unknown) current (units (unkno wn) date) occupational unknown) exposures/hazards: No (unknown) (no (unknown) (unknown) cy (units (unkno wn) date) unknown) (unknown) (no (unknown) (unknown) cytotec (units (unkno wn) date) unknown) (unknown) (no (unknown) (unknown) daily servings (units (unknown) date) fruits/ve-4 unknown) (unknown) (no (unknown) (unknown) declined referral (units (unknown) date) for unknown) echocardiogram for IVF . (unknown) (no (unknown) (unknown) discussed (units (unkn own) date) increased fiber in unknown) diet. May use MiraLax. No uterine type cramping, (unknown) (no (unknown) (unknown) discussed with (units (unknown) date) the patient. unknown) Patient is not COVID vaccinated. Discussed (unknown) (no (unknown) (unknown) disorders, Denies (units (unknown) date) Cystic Fibrosis, unknown) Denies Mental Retardation/Autism , Denies (unknown) (no (unknown) (unknown) do you feel safe (units (unknown) date) at home: Yes unknown) (unknown) (no (unknown) (unknown) drops of urine, (units (unknown) date) does feel it is unknown) from the bladder. No vaginal leakage of fluid (unknown) (no (unknown) (unknown) during the past (units (unknown) date) year weight has: unknown) decreased > 10 lbs (lost 30 lbs) (unknown) (no (unknown) (unknown) eating out: (units (un known) date) rarely or never unknown) (unknown) (no (unknown) (unknown) education level: (units (unknown) date) college unknown) (unknown) (no (unknown) (unknown) exposure (units (unkno wn) date) discussed, CMV unknown) discussed, Toxoplasmosis precautions, Listeriosis (unknown) (no (unknown) (unknown) exposure, (units (unkn own) date) Medication use, unknown) Sauna/hot tub use, Dental care and Travel (unknown) (no (unknown) (unknown) feeling some less (units (unknown) date) movement, but she unknown) does kick counts and gets enough kicks, then (unknown) (no (unknown) (unknown) feeling some upper (units (unknown) date) discomfort when unknown) standing, but some muscle support tape to try (unknown) (no (unknown) (unknown) feels better with (units (unknown) date) using this when on unknown) her feet. Feeling good movement. No (unknown) (no (unknown) (unknown) fire extinguisher (units (unknown) date) in home: No unknown) (unknown) (no (unknown) (unknown) firearms in home: (units (unknown) date) No unknown) (unknown) (no (unknown) (unknown) frequency: does (units (unknown) date) not exercise unknown) (unknown) (no (unknown) (unknown) frequent, then to (units (unknown) date) call. Occasionally unknown) feeling vaginal pressure when she sits, (unknown) (no (unknown) (unknown) getting the (units (un known) date) vaccine in unknown) . (unknown) (no (unknown) (unknown) have occurred. If (units (unknown) date) there are any unknown) questions, please contact the Medical Records (unknown) (no (unknown) (unknown) her in for NST. (units (unknown) date) Feels some cramps unknown) in the morning after wakening, then results (unknown) (no (unknown) (unknown) here. No other (units (unknown) date) problems. Feeling unknown) good movement. No contractions, (unknown) (no (unknown) (unknown) household (units (unkn own) date) members: spouse unknown) (unknown) (no (unknown) (unknown) housing: house (units (unknown) date) unknown) (unknown) (no (unknown) (unknown) if she does ever (units (unknown) date) feel significantly unknown) less, then definitely call and will bring (unknown) (no (unknown) (unknown) irritability, (units ( unknown) date) bloating and other unknown) (headaches + constipation) (unknown) (no (unknown) (unknown) leakage of fluid, (units (unknown) date) vaginal bleeding unknown) or abnormal vaginal discharge. Feeling (unknown) (no (unknown) (unknown) marital status: (units (unknown) date) unknown) (unknown) (no (unknown) (unknown) may occur. (units (unk nown) date) Occasional unknown) wrong-word or 'sound-alike' substitutions may have (unknown) (no (unknown) (unknown) medication (units (unk nown) date) options during unknown) labor. Tdap given today. (unknown) (no (unknown) (unknown) normal Glucola, (units (unknown) date) hemoglobin was unknown) 11.8. Questions answered regarding pain (unknown) (no (unknown) (unknown) noted cramping, (units (unknown) date) contractions, unknown) vaginal bleeding or leakage of fluid. She had a (unknown) (no (unknown) (unknown) nothing (units (unkno wn) date) persistent. unknown) Feeling good movement. Occasionally leaking few (unknown) (no (unknown) (unknown) number of (units (unkn own) date) children: 0 unknown) (unknown) (no (unknown) (unknown) occupational (units (u nknown) date) status: unemployed unknown) (unknown) (no (unknown) (unknown) occurred due to (units (unknown) date) the inherent unknown) limitations of voice recognition software. Please (unknown) (no (unknown) (unknown) or bleeding. No (units (unknown) date) persistent unknown) cramping. Ultrasound for EFW today due to IVF (unknown) (no (unknown) (unknown) other problems. (units (unknown) date) Tried 1 Colace unknown) daily without improvement. Discussed increase (unknown) (no (unknown) (unknown) pets and animals: (units (unknown) date) Yes (2 dogs) unknown) (unknown) (no (unknown) (unknown) . EFW 44 (units (unknown) date) percentile, 2022 unknown) g, 4 lb 7 oz. GOMEZ 14.6. (unknown) (no (unknown) (unknown) prenat.vits,emilia,m (units (unknown) date) [id number] 1 unknown) tab PO DAILY 11/27/21 [History Confirmed (unknown) (no (unknown) (unknown) prevention and (units (unknown) date) Rubella unknown) Immunization (unknown) (no (unknown) (unknown) read the note (units ( unknown) date) carefully and unknown) recognize, using context, where these substitutions (unknown) (no (unknown) (unknown) reviewed had a (units (unknown) date) palpate for unknown) contractions, and if having every 10 minutes or more (unknown) (no (unknown) (unknown) reviewed, (units (unkn own) date) coverage 24 hours unknown) a day and participation of father in care (unknown) (no (unknown) (unknown) routine (units ( unknown) date) movement. She will unknown) do her Glucola/H/H next visit. Offered, (unknown) (no (unknown) (unknown) screen next (units (un known) date) visit. unknown) (unknown) (no (unknown) (unknown) seatbelt use: (units ( unknown) date) always unknown) (unknown) (no (unknown) (unknown) second hand (units (un known) date) exposure: No unknown) (unknown) (no (unknown) (unknown) she is feeling (units ( unknown) date) [place] or unknown) the baby, when feels tight in the upper abdomen. (unknown) (no (unknown) (unknown) software. 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 After (units (unknown) date) review, may need unknown) to increase water intake recently, and (unknown) (no (unknown) (unknown) to use as an (units (u nknown) date) abdominal binder. unknown) Will try to fit her for an abdominal binder (unknown) (no (unknown) (unknown) travel history: (units (unknown) date) recent ([place] unknown) 12/2020) (unknown) (no (unknown) (unknown) water heater temp (units (unknown) date) set < 120 deg: No unknown) (unsure) (unknown) (no (unknown) (unknown) well-balanced (units ( unknown) date) diet: about half unknown) the time (unknown) (no (unknown) (unknown) working smoke (units ( unknown) date) detector in home: unknown) Yes Result panel 333 (unknown) (no (unknown) (unknown) (no value) (units (unk nown) date) unknown) (unknown) (no (unknown) (unknown) (+18 lb) 102/68 N (units (unknown) date) unknown) (unknown) (no (unknown) (unknown) (+26 lb) 128/72 N (units (unknown) date) unknown) (unknown) (no (unknown) (unknown) (+3 lb) 110/70 N (units (unknown) date) unknown) (unknown) (no (unknown) (unknown) (+32 lb) 110/72 1 (units (unknown) date) unknown) (unknown) (no (unknown) (unknown) (+36 lb) 114/64 N (units (unknown) date) unknown) (unknown) (no (unknown) (unknown) (+39 lb) 104/70 (units (unknown) date) TR unknown) (unknown) (no (unknown) (unknown) (+43 lb) 122/68 (units (unknown) date) unknown) (unknown) (no (unknown) (unknown) (+6 lb) 104/66 TR (units (unknown) date) unknown) (unknown) (no (unknown) (unknown) (+9 lb) 108/78 N (units (unknown) date) unknown) (unknown) (no (unknown) (unknown) (1) 36 weeks (units (u nknown) date) gestation of unknown) : (unknown) (no (unknown) (unknown) (Ashkenazi (units (unk nown) date) Quaker), Denies unknown) Familial Dysautonomia (Ashkenazi Quaker), Denies (unknown) (no (unknown) (unknown) Genetic (units (unkn own) date) Screening/Teratolo unknown) gy Counseling - Includes patient, baby's father, or (unknown) (no (unknown) (unknown) -?-?-?-?-?-?-?-?- (units (unknown) date) ?-?-?-? unknown) (unknown) (no (unknown) (unknown) 12/08/2021 (units (unk nown) date) Caceres viable unknown) intrauterine gestation size equal to dates (unknown) (no (unknown) (unknown) 12/08/21 (units (unkno wn) date) unknown) (unknown) (no (unknown) (unknown) 01/05/22 (units (unkno wn) date) unknown) (unknown) (no (unknown) (unknown) 02/02/22 (units (unkno wn) date) unknown) (unknown) (no (unknown) (unknown) 02/17/19 8 (units (unk nown) date) spontaneous unknown) (unknown) (no (unknown) (unknown) 02/28/22 (units (unkno wn) date) unknown) (unknown) (no (unknown) (unknown) 07:54 (units (unkno wn) date) unknown) (unknown) (no (unknown) (unknown) 03/28/22 (units (unkno wn) date) unknown) (unknown) (no (unknown) (unknown) 04/25/22 (units (unkno wn) date) unknown) (unknown) (no (unknown) (unknown) 05/10/22 (units (unkno wn) date) unknown) (unknown) (no (unknown) (unknown) 05/24/22 (units (unkno wn) date) unknown) (unknown) (no (unknown) (unknown) 06/07/22 0837 (units ( unknown) date) unknown) (unknown) (no (unknown) (unknown) 06/07/22 (units (unkno wn) date) unknown) (unknown) (no (unknown) (unknown) 06/07/22] (units (unkn own) date) unknown) (unknown) (no (unknown) (unknown) 10w 6d 183 lb (units ( unknown) date) unknown) (unknown) (no (unknown) (unknown) 07/01/22 (units (unkno wn) date) Ultrasound #1 36w unknown) 4d (unknown) (no (unknown) (unknown) 14w 6d 186 lb (units ( unknown) date) unknown) (unknown) (no (unknown) (unknown) 18w 6d 189 lb (units ( unknown) date) unknown) (unknown) (no (unknown) (unknown) 1wk (units (unkno wn) date) unknown) (unknown) (no (unknown) (unknown) 22w 4d 198 lb (units ( unknown) date) unknown) (unknown) (no (unknown) (unknown) 26w 4d 206 lb (units ( unknown) date) unknown) (unknown) (no (unknown) (unknown) 26wk4d. Pt with (units (unknown) date) some abdominal unknown) musculoskeletal discomfort, lower and (unknown) (no (unknown) (unknown) [id number], IVF (units ( unknown) date) , at unknown) 22wks here for DANYELLE visit. Constipation, no (unknown) (no (unknown) (unknown) 27yo (units (unkn own) date) presents for DANYELLE unknown) visit @ 36wk5d. She reports some normal (unknown) (no (unknown) (unknown) 2wk (units (unkno wn) date) unknown) (unknown) (no (unknown) (unknown) 30w 4d 212 lb (units ( unknown) date) unknown) (unknown) (no (unknown) (unknown) 32w 5d 216 lb (units ( unknown) date) unknown) (unknown) (no (unknown) (unknown) 32wk5d. Trini (units (unknown) date) questions how to unknown) feel contractions, uncertain at times if (unknown) (no (unknown) (unknown) 34w 5d 219 lb (units ( unknown) date) unknown) (unknown) (no (unknown) (unknown) 36w 5d 223 lb (units ( unknown) date) unknown) (unknown) (no (unknown) (unknown) [id number] (units (unkno wn) date) unknown) (unknown) (no (unknown) (unknown) 53 (units (unkno wn) date) unknown) (unknown) (no (unknown) (unknown) Abnormal Pap (units (u nknown) date) smear of cervix unknown) (-2013) (unknown) (no (unknown) (unknown) Abnormal lab (units (u nknown) date) values 1st unknown) trimester: discussed (unknown) (no (unknown) (unknown) Add'l Plan (units (unk nown) date) Details unknown) (unknown) (no (unknown) (unknown) Age/Sex: 27 / F (units (unknown) date) Date of Service: unknown) (unknown) (no (unknown) (unknown) Allergies (units (unkn own) date) unknown) (unknown) (no (unknown) (unknown) [place] (units ( unknown) date) [id number] unknown) (unknown) (no (unknown) (unknown) Anesthesia (units (unk nown) date) unknown) (unknown) (no (unknown) (unknown) Aneuploidy (units (unk nown) date) Screening Offered: unknown) Declined (unknown) (no (unknown) (unknown) Anticipated (units (un known) date) course of unknown) care: discussed (unknown) (no (unknown) (unknown) Assessment and (units (unknown) date) Plan unknown) (unknown) (no (unknown) (unknown) Attending Dr: Lynne (units (unknown) date) Sirisha Campuzano MD unknown) (unknown) (no (unknown) (unknown) BMI 39.4 (units (unkno wn) date) unknown) (unknown) (no (unknown) (unknown) BP 122/68 (units (unkn own) date) unknown) (unknown) (no (unknown) (unknown) (units (unkno wn) date) Plan/Preferences unknown) (unknown) (no (unknown) (unknown) Planning (units (unknown) date) unknown) (unknown) (no (unknown) (unknown) Blood Pressure (units (unknown) date) Location Lt unknown) brachial (unknown) (no (unknown) (unknown) Blood (units (unkno wn) date) transfusions?: yes unknown) (never had but willing to accept) (unknown) (no (unknown) (unknown) Breastfeed Preg (units (unknown) date) Comp Name unknown) (unknown) (no (unknown) (unknown) Childbirth (units (unk nown) date) Classes: discussed unknown) (unknown) (no (unknown) (unknown) Current Estimate (units (unknown) date) 06/30/22 Manual unknown) 36w 5d IVF pregnan (unknown) (no (unknown) (unknown) Current (units (unknown) date) History unknown) (unknown) (no (unknown) (unknown) : 1995 (units (unknown) date) Acct:[id number] unknown) (unknown) (no (unknown) (unknown) Date of positive (units (unknown) date) home unknown) test: 10/16/21 (unknown) (no (unknown) (unknown) Date (units (unkno wn) date) unknown) (unknown) (no (unknown) (unknown) Del. Date (units (unkn own) date) GA/Weeks Labor unknown) Lgth Wt Sex Route Outcome Anesthesia Place (unknown) (no (unknown) (unknown) Delivery Date: (units (unknown) date) 02/17/19 Last unknown) Updated by: Juhi Hayes R.N. (unknown) (no (unknown) (unknown) Delv (units (unkno wn) date) unknown) (unknown) (no (unknown) (unknown) Denies Congenital (units (unknown) date) Heart Defect, unknown) Denies Down Syndrome, Denies Muscular Dystrophy, (unknown) (no (unknown) (unknown) Denies Maternal (units (unknown) date) Metabolic Disorder unknown) (EG,TYPE 1 Diabetes, PKU), Denies Patient or (unknown) (no (unknown) (unknown) Denies Neural Tube (units (unknown) date) Defect unknown) (Meningomyelocele, Spina Bifida, or Anencephaly), Lio (unknown) (no (unknown) (unknown) Denies other (units (u nknown) date) unknown) (unknown) (no (unknown) (unknown) Denies over the (units (unknown) date) counter unknown) medications, Denies alcohol, Denies illicit drugs and (unknown) (no (unknown) (unknown) Depression: (units (un known) date) discussed unknown) (unknown) (no (unknown) (unknown) Dept at (units (unkno wn) date) . unknown) (unknown) (no (unknown) (unknown) Diet and Exercise (units (unknown) date) unknown) (unknown) (no (unknown) (unknown) Documented By: (units (unknown) date) Lynne Campuzano unknown) 06/07/22 07 (unknown) (no (unknown) (unknown) LORY Calculator (units (unknown) date) unknown) (unknown) (no (unknown) (unknown) EGA Weight BP (units ( unknown) date) UGlucose unknown) (unknown) (no (unknown) (unknown) Encounter for in (units (unknown) date) vitro unknown) fertilization () (unknown) (no (unknown) (unknown) Estimated (units (unkn own) date) Delivery Date unknown) Method Current (unknown) (no (unknown) (unknown) Exercise and (units (u nknown) date) activity, unknown) work/environmental /hazards, Sexual activity, X-ray (unknown) (no (unknown) (unknown) Expected Delivery (units (unknown) date) Route/Plan unknown) (unknown) (no (unknown) (unknown) FM returns to a (units (unknown) date) lot of normal unknown) movement. On exam today, FM seen. Advised her, (unknown) (no (unknown) (unknown) Family History (units (unknown) date) (Updated 01/04/22 unknown) @ 23:06 by Paris Davalos) (unknown) (no (unknown) (unknown) Father of Baby: (units (unknown) date) [place] unknown) (unknown) (no (unknown) (unknown) [facility]) (unknown) (no (unknown) (unknown) First Trimester (units (unknown) date) Education unknown) Checklist (unknown) (no (unknown) (unknown) (units (unkno wn) date) unknown) (unknown) (no (unknown) (unknown) Genetic Screening (units (unknown) date) + Counseling unknown) (unknown) (no (unknown) (unknown) Genetic Screening (units (unknown) date) unknown) (unknown) (no (unknown) (unknown) Grandfather (units (un known) date) Diabetes mellitus unknown) (unknown) (no (unknown) (unknown) Grandmother (units (un known) date) Breast cancer unknown) (unknown) (no (unknown) (unknown) Grandmother (units (un known) date) Hypertension unknown) (unknown) (no (unknown) (unknown) 2 (units (unkn own) date) Multiple births unknown) (unknown) (no (unknown) (unknown) HIV risk (units (unkno wn) date) evaluation: low unknown) risk (unknown) (no (unknown) (unknown) Health Center (units ( unknown) date) Education unknown) (unknown) (no (unknown) (unknown) Health center (units ( unknown) date) information: unknown) nature of practice discussed, visit schedule (unknown) (no (unknown) (unknown) Height 5 ft 3 in (units (unknown) date) unknown) (unknown) (no (unknown) (unknown) Hepatitis C risk (units (unknown) date) evaluation: low unknown) risk (unknown) (no (unknown) (unknown) History of (units (unk nown) date) Hepatitis B: No unknown) (unknown) (no (unknown) (unknown) History of (units (unk nown) date) Hepatitis C: No unknown) (unknown) (no (unknown) (unknown) History of LEEP (units (unknown) date) procedure unknown) (unknown) (no (unknown) (unknown) Human papilloma (units (unknown) date) virus () unknown) (unknown) (no (unknown) (unknown) Montague's (units (u nknown) date) Chorea, Denies unknown) Other inherited genetic or chromosomal disorder, (unknown) (no (unknown) (unknown) Hx # (units (u nknown) date) Pregnancies unknown) Elective abortions (unknown) (no (unknown) (unknown) Hx # Term (units (unkn own) date) Pregnancies unknown) Ectopic pregnancies (unknown) (no (unknown) (unknown) Hx of (units (unkno wn) date) tonsillectomy unknown) () (unknown) (no (unknown) (unknown) IVF for this (units (u nknown) date) , unknown) declined Echo 02/28/22 32 wk growth US 44%, f/u (unknown) (no (unknown) (unknown) Infection History (units (unknown) date) unknown) (unknown) (no (unknown) (unknown) Infection history (units (unknown) date) comments: needs unknown) flu + covid vaccines (unknown) (no (unknown) (unknown) Infectious (units (unk nown) date) Disease Education unknown) (unknown) (no (unknown) (unknown) Infectious (units (unk nown) date) disease exposure: unknown) chicken pox immunity discussed, tuberculosis (unknown) (no (unknown) (unknown) Infertility (units (un known) date) () unknown) (unknown) (no (unknown) (unknown) Initial Weight: (units (unknown) date) 180 lb unknown) (unknown) (no (unknown) (unknown) Initials (units (unkno wn) date) unknown) (unknown) (no (unknown) (unknown) Intake Clinical (units (unknown) date) Staff unknown) (unknown) (no (unknown) (unknown) Intake Note: (units (u nknown) date) unknown) (unknown) (no (unknown) (unknown) Intake performed (units (unknown) date) by: Tricia Adan unknown) (unknown) (no (unknown) (unknown) Intake (units (unkno wn) date) unknown) (unknown) (no (unknown) (unknown) Live with someone (units (unknown) date) with TB or exposed unknown) to TB: No (unknown) (no (unknown) (unknown) Loc: [facility] (units (unkno wn) date) unknown) (unknown) (no (unknown) (unknown) 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) () (unknown) (no (unknown) (unknown) Marital status: (units (unknown) date) unknown) (unknown) (no (unknown) (unknown) Medical History (units (unknown) date) (Updated 02/28/22 unknown) @ 08:37 by Lynne Campuzano MD) (unknown) (no (unknown) (unknown) Medications (units (un known) date) unknown) (unknown) (no (unknown) (unknown) Mother (units (unkno wn) date) Hypertension unknown) (unknown) (no (unknown) (unknown) N 140 15 4wk (units (u nknown) date) unknown) (unknown) (no (unknown) (unknown) N Yes 142 19 girl (units (unknown) date) 4wk unknown) (unknown) (no (unknown) (unknown) N Yes no 140 (units (u nknown) date) Vertex absent 2wk unknown) (unknown) (no (unknown) (unknown) N Yes no 143 22 (units (unknown) date) absent 4wk unknown) (unknown) (no (unknown) (unknown) N Yes no 144 27 (units (unknown) date) absent 4 wk unknown) (unknown) (no (unknown) (unknown) N Yes no 144 (units (u nknown) date) Vertex absent EFW unknown) 44%, GOMEZ 14 (unknown) (no (unknown) (unknown) N Yes no 145 30 (units (unknown) date) absent 4wk unknown) (unknown) (no (unknown) (unknown) NF (units (unkno wn) date) unknown) (unknown) (no (unknown) (unknown) No Known Drug (units ( unknown) date) Allergies Allergy unknown) (Unverified 06/07/22 07:54) (unknown) (no (unknown) (unknown) No vaginal (units (unk nown) date) bleeding. No unknown) change in vaginal discharge. No fevers. No vaginal (unknown) (no (unknown) (unknown) Notes (units (unkno wn) date) unknown) (unknown) (no (unknown) (unknown) Number of Living (units (unknown) date) Children unknown) (unknown) (no (unknown) (unknown) Number of (units (unkn own) date) fetuses:: Single unknown) (unknown) (no (unknown) (unknown) Nutrition and (units ( unknown) date) weight gain unknown) counseling: special diet: discussed (unknown) (no (unknown) (unknown) OB Office Visit (units (unknown) date) unknown) (unknown) (no (unknown) (unknown) OB Visit Log (units (u nknown) date) unknown) (unknown) (no (unknown) (unknown) On control (units (unknown) date) at conception?: No unknown) (IVF) (unknown) (no (unknown) (unknown) Other Estimates (units (unknown) date) 06/26/22 LMP unknown) (Certain) 37w 2d (unknown) (no (unknown) (unknown) PFSH (units (unkno wn) date) unknown) (unknown) (no (unknown) (unknown) Para 0 (units (unkno wn) date) Spontaneous unknown) abortions 1 (unknown) (no (unknown) (unknown) Partner history (units (unknown) date) of STD: denies hx unknown) (unknown) (no (unknown) (unknown) Partner history (units (unknown) date) of genital herpes: unknown) No (unknown) (no (unknown) (unknown) Partner: [place] (units (unknown) date) [place] unknown) (unknown) (no (unknown) (unknown) Past Pregnancies (units (unknown) date) unknown) (unknown) (no (unknown) (unknown) Patient is (units (unk nown) date) feeling well. Some unknown) mild cramping. No bleeding. No fevers. (unknown) (no (unknown) (unknown) Patient is (units (unk nown) date) feeling well. Some unknown) pressure sensation but no other concerns. (unknown) (no (unknown) (unknown) Patient's age 35 (units (unknown) date) years or older as unknown) of estimated date of delivery: No (unknown) (no (unknown) (unknown) Patient: (units (unkno wn) date) Trini Lorenz unknown) MR#: [id number] (unknown) (no (unknown) (unknown) Personal history (units (unknown) date) of STD: HPV (2015) unknown) (unknown) (no (unknown) (unknown) Personal history (units (unknown) date) of genital herpes: unknown) No (unknown) (no (unknown) (unknown) Position Sitting (units (unknown) date) unknown) (unknown) (no (unknown) (unknown) History (units (unknown) date) unknown) (unknown) (no (unknown) (unknown) type:: (units (unknown) date) Other Normal unknown) (unknown) (no (unknown) (unknown) (units (unkno wn) date) Education unknown) (unknown) (no (unknown) (unknown) Initial (units (unknown) date) Assessment unknown) (unknown) (no (unknown) (unknown) Specific (units (unknown) date) Issues/Plans unknown) (unknown) (no (unknown) (unknown) Testing: (units (unknown) date) discussed unknown) (unknown) (no (unknown) (unknown) Visit (units (unknown) date) unknown) (unknown) (no (unknown) (unknown) (units (unkno wn) date) education packet: unknown) Child education/plan, symptoms, (unknown) (no (unknown) (unknown) Primary Care (units (u nknown) date) Provider: Britt unknown) Sharmaine (unknown) (no (unknown) (unknown) Primary Ob (units (unk nown) date) Provider: unknown) Lynne Campuzano (unknown) (no (unknown) (unknown) Prior (units (unkno wn) date) GBS-Infected unknown) child: No (unknown) (no (unknown) (unknown) Providers (units (unkn own) date) unknown) (unknown) (no (unknown) (unknown) Pt here for OB (units (unknown) date) Check unknown) (unknown) (no (unknown) (unknown) Quad screen nml (units (unknown) date) unknown) (unknown) (no (unknown) (unknown) DANYELLE visit 34wk5d. (units (unknown) date) Feeling well. She unknown) reports sometimes a few days of (unknown) (no (unknown) (unknown) [email or web address] She (units (unknown) date) denies any unknown) problems. She bought an abdominal binder and (unknown) (no (unknown) (unknown) Rash or viral (units ( unknown) date) illness since last unknown) menstrual period: No (unknown) (no (unknown) (unknown) Reason For Visit (units (unknown) date) unknown) (unknown) (no (unknown) (unknown) Recent travel (units ( unknown) date) outside of unknown) country?: No (unknown) (no (unknown) (unknown) Recurrent (units (unkn own) date) loss or unknown) a stillbirth: No (unknown) (no (unknown) (unknown) Routine (units (unkno wn) date) precautions and unknown) normal physiological changes of (unknown) (no (unknown) (unknown) Routine (units (unkno wn) date) precautions unknown) reviewed. (unknown) (no (unknown) (unknown) Rubella nonimmune (units (unknown) date) immunize unknown) (unknown) (no (unknown) (unknown) S/P LEEP (loop (units (unknown) date) electrosurgical unknown) excision procedure) () (unknown) (no (unknown) (unknown) Safety (units (unkno wn) date) unknown) (unknown) (no (unknown) (unknown) Sickle Cell (units (un known) date) Disease or Trait unknown) (), Denies Hemophilia or other blood (unknown) (no (unknown) (unknown) Signed By: (units (unk nown) date) <Electronically unknown) signed by Lynne Campuzano MD> (unknown) (no (unknown) (unknown) Signed (units (unkno wn) date) unknown) (unknown) (no (unknown) (unknown) Smoking Status: (units (unknown) date) Never smoker unknown) (unknown) (no (unknown) (unknown) Smoking/Tobacco (units (unknown) date) use: discussed unknown) (unknown) (no (unknown) (unknown) Social History (units (unknown) date) unknown) (unknown) (no (unknown) (unknown) Surgical History (units (unknown) date) (Updated 01/04/22 unknown) @ 23:05 by Paris Davalos) (unknown) (no (unknown) (unknown) Symptoms since (units (unknown) date) LMP: Reports unknown) amenorrhea, nausea, fatigue, urinary frequency, (unknown) (no (unknown) (unknown) TR 174 11 4wk (units ( unknown) date) unknown) (unknown) (no (unknown) (unknown) Tdap status: (units (u nknown) date) immunized unknown) (unknown) (no (unknown) (unknown) Teratogen (units (unkn own) date) Exposures since unknown) LMP/Conception: Denies prescription medications, (unknown) (no (unknown) (unknown) Testing Education (units (unknown) date) unknown) (unknown) (no (unknown) (unknown) Testing education (units (unknown) date) completed: Genetic unknown) testing, group B strep and Cell Free DNA (unknown) (no (unknown) (unknown) This note may (units ( unknown) date) have been all or unknown) partially generated using voice recognition (unknown) (no (unknown) (unknown) Tobacco + (units (unkn own) date) Substance Use unknown) (unknown) (no (unknown) (unknown) Tobacco Status (units (unknown) date) unknown) (unknown) (no (unknown) (unknown) Trimester:: 3rd (units (unknown) date) Trimester unknown) (28wks-Del) (unknown) (no (unknown) (unknown) Type(s) of (units (unk nown) date) exercise: none unknown) (unknown) (no (unknown) (unknown) Typically feels (units (unknown) date) in the a.m.. Only unknown) feeling occasionally, nothing routinely. I (unknown) (no (unknown) (unknown) UProtein Movement (units (unknown) date) PreLabor FHR Fndl unknown) Ht Pres Edema Cerv Exam US/Comment Next Appt (unknown) (no (unknown) (unknown) Ultrasound (units (unk nown) date) Details:: Prior 7 unknown) week 3 day ultrasound at IVF on 11/15/21 clinic (unknown) (no (unknown) (unknown) Ultrasound (units (unk nown) date) unknown) (unknown) (no (unknown) (unknown) Vaginal (units (unkno wn) date) unknown) (unknown) (no (unknown) (unknown) Varicella/chicken (units (unknown) date) pox status: unknown) immunized and previous disease (mild case as (unknown) (no (unknown) (unknown) Visit Date: (units (un known) date) 12/08/21 Last unknown) Updated by: Carrie Pichardo MD (unknown) (no (unknown) (unknown) Visit Date: (units (un known) date) 01/05/22 Last unknown) Updated by: Carrie Pichardo MD (unknown) (no (unknown) (unknown) Visit Date: (units (un known) date) 02/02/22 Last unknown) Updated by: Carrie Pichardo MD (unknown) (no (unknown) (unknown) Visit Date: (units (un known) date) 02/28/22 Last unknown) Updated by: Lynne Campuzano MD (unknown) (no (unknown) (unknown) Visit Date: (units (un known) date) 03/28/22 Last unknown) Updated by: Lynne Campuzano MD (unknown) (no (unknown) (unknown) Visit Date: (units (un known) date) 04/25/22 Last unknown) Updated by: Lynne Campuzano MD (unknown) (no (unknown) (unknown) Visit Date: (units (un known) date) 05/10/22 Last unknown) Updated by: Lynne Campuzano MD (unknown) (no (unknown) (unknown) Visit Date: (units (un known) date) 05/24/22 Last unknown) Updated by: Lynne Campuzano MD (unknown) (no (unknown) (unknown) Visit Date: (units (un known) date) 06/07/22 Last unknown) Updated by: Lynne Campuzano MD (unknown) (no (unknown) (unknown) Visit Reasons: OB (units (unknown) date) check unknown) (unknown) (no (unknown) (unknown) Vitals (units (unkno wn) date) unknown) (unknown) (no (unknown) (unknown) Vitamins and (units (u nknown) date) iron, Diet and unknown) weight gain, Fish and mercury intake, Caffeine use, (unknown) (no (unknown) (unknown) WG (units (unkno wn) date) unknown) (unknown) (no (unknown) (unknown) Weeks gestation:: (units (unknown) date) 36 unknown) (unknown) (no (unknown) (unknown) Weight 223 lb (units ( unknown) date) unknown) (unknown) (no (unknown) (unknown) Millis teeth (units (u nknown) date) extracted () unknown) (unknown) (no (unknown) (unknown) Yes no 148 37 (units ( unknown) date) Vertex absent unknown) 0/long ordered (unknown) (no (unknown) (unknown) Zika virus (units (unk nown) date) exposure: No unknown) (unknown) (no (unknown) (unknown) after she (units (unkn own) date) hydrates. No unknown) persistent cramping, ctx, LOF or VB. Discussed GBS (unknown) (no (unknown) (unknown) alcohol intake: (units (unknown) date) former unknown) (unknown) (no (unknown) (unknown) amh (units (unkno wn) date) unknown) (unknown) (no (unknown) (unknown) and office visits (units (unknown) date) unknown) (unknown) (no (unknown) (unknown) anyone in either (units (unknown) date) family with: unknown) (unknown) (no (unknown) (unknown) baby's father had (units (unknown) date) a child with unknown) defects not listed above and Denies Other (unknown) (no (unknown) (unknown) bleeding. She is (units (unknown) date) feeling baby move. unknown) Routine precautions reviewed. (unknown) (no (unknown) (unknown) caffeine: Yes (units ( unknown) date) (aware of 200mg unknown) daily limit) (unknown) (no (unknown) (unknown) carbon monox (units (u nknown) date) detector in home: unknown) Yes (unknown) (no (unknown) (unknown) child) (units (unkno wn) date) unknown) (unknown) (no (unknown) (unknown) concerns with (units ( unknown) date) COVID infection unknown) and and urged patient to consider (unknown) (no (unknown) (unknown) consistent with (units (unknown) date) dates. unknown) (unknown) (no (unknown) (unknown) cramping, vaginal (units (unknown) date) bleeding or unknown) leakage of fluid. Doing her Glucola today. (unknown) (no (unknown) (unknown) current (units (unkno wn) date) occupational unknown) exposures/hazards: No (unknown) (no (unknown) (unknown) cy (units (unkno wn) date) unknown) (unknown) (no (unknown) (unknown) cytotec (units (unkno wn) date) unknown) (unknown) (no (unknown) (unknown) daily servings (units (unknown) date) fruits/ve-4 unknown) (unknown) (no (unknown) (unknown) declined referral (units (unknown) date) for unknown) echocardiogram for IVF . (unknown) (no (unknown) (unknown) discussed (units (unkn own) date) increased fiber in unknown) diet. May use MiraLax. No uterine type cramping, (unknown) (no (unknown) (unknown) discussed with (units (unknown) date) the patient. unknown) Patient is not COVID vaccinated. Discussed (unknown) (no (unknown) (unknown) disorders, Denies (units (unknown) date) Cystic Fibrosis, unknown) Denies Mental Retardation/Autism , Denies (unknown) (no (unknown) (unknown) do you feel safe (units (unknown) date) at home: Yes unknown) (unknown) (no (unknown) (unknown) drops of urine, (units (unknown) date) does feel it is unknown) from the bladder. No vaginal leakage of fluid (unknown) (no (unknown) (unknown) during the past (units (unknown) date) year weight has: unknown) decreased > 10 lbs (lost 30 lbs) (unknown) (no (unknown) (unknown) eating out: (units (un known) date) rarely or never unknown) (unknown) (no (unknown) (unknown) education level: (units (unknown) date) college unknown) (unknown) (no (unknown) (unknown) es Epifanio-Sachs (units (u nknown) date) (Ashkenazi Quaker, unknown) [place], [place]), Denies Nadja Disease (unknown) (no (unknown) (unknown) exposure (units (unkno wn) date) discussed, CMV unknown) discussed, Toxoplasmosis precautions, Listeriosis (unknown) (no (unknown) (unknown) exposure, (units (unkn own) date) Medication use, unknown) Sauna/hot tub use, Dental care and Travel (unknown) (no (unknown) (unknown) feeling some less (units (unknown) date) movement, but she unknown) does kick counts and gets enough kicks, then (unknown) (no (unknown) (unknown) feeling some upper (units (unknown) date) discomfort when unknown) standing, but some muscle support tape to try (unknown) (no (unknown) (unknown) feels better with (units (unknown) date) using this when on unknown) her feet. Feeling good movement. No (unknown) (no (unknown) (unknown) movement (units (unknown) date) daily. GBS screen unknown) collected. She desired a cervical check. Will (unknown) (no (unknown) (unknown) fire extinguisher (units (unknown) date) in home: No unknown) (unknown) (no (unknown) (unknown) firearms in home: (units (unknown) date) No unknown) (unknown) (no (unknown) (unknown) frequency: does (units (unknown) date) not exercise unknown) (unknown) (no (unknown) (unknown) frequent, then to (units (unknown) date) call. Occasionally unknown) feeling vaginal pressure when she sits, (unknown) (no (unknown) (unknown) getting the (units (un known) date) vaccine in unknown) . (unknown) (no (unknown) (unknown) growth US ordered (units (unknown) date) @36wks unknown) (unknown) (no (unknown) (unknown) have occurred. If (units (unknown) date) there are any unknown) questions, please contact the Medical Records (unknown) (no (unknown) (unknown) having a girl (units ( unknown) date) unknown) (unknown) (no (unknown) (unknown) her in for NST. (units (unknown) date) Feels some cramps unknown) in the morning after wakening, then results (unknown) (no (unknown) (unknown) here. No other (units (unknown) date) problems. Feeling unknown) good movement. No contractions, (unknown) (no (unknown) (unknown) household (units (unkn own) date) members: spouse unknown) (unknown) (no (unknown) (unknown) housing: house (units (unknown) date) unknown) (unknown) (no (unknown) (unknown) if she does ever (units (unknown) date) feel significantly unknown) less, then definitely call and will bring (unknown) (no (unknown) (unknown) irritability, (units ( unknown) date) bloating and other unknown) (headaches + constipation) (unknown) (no (unknown) (unknown) leakage of fluid, (units (unknown) date) vaginal bleeding unknown) or abnormal vaginal discharge. Feeling (unknown) (no (unknown) (unknown) marital status: (units (unknown) date) unknown) (unknown) (no (unknown) (unknown) may occur. (units (unk nown) date) Occasional unknown) wrong-word or 'sound-alike' substitutions may have (unknown) (no (unknown) (unknown) medication (units (unk nown) date) options during unknown) labor. Tdap given today. (unknown) (no (unknown) (unknown) musculoskeletal (units (unknown) date) discomforts of unknown) , especially by the end of the day. No (unknown) (no (unknown) (unknown) normal Glucola, (units (unknown) date) hemoglobin was unknown) 11.8. Questions answered regarding pain (unknown) (no (unknown) (unknown) noted cramping, (units (unknown) date) contractions, unknown) vaginal bleeding or leakage of fluid. She had a (unknown) (no (unknown) (unknown) nothing (units (unkno wn) date) persistent. unknown) Feeling good movement. Occasionally leaking few (unknown) (no (unknown) (unknown) number of (units (unkn own) date) children: 0 unknown) (unknown) (no (unknown) (unknown) occupational (units (u nknown) date) status: unemployed unknown) (unknown) (no (unknown) (unknown) occurred due to (units (unknown) date) the inherent unknown) limitations of voice recognition software. Please (unknown) (no (unknown) (unknown) or bleeding. No (units (unknown) date) persistent unknown) cramping. Ultrasound for EFW today due to IVF (unknown) (no (unknown) (unknown) other problems. (units (unknown) date) Overall sleeping unknown) well. She felt a little cramping which (unknown) (no (unknown) (unknown) other problems. (units (unknown) date) Tried 1 Colace unknown) daily without improvement. Discussed increase (unknown) (no (unknown) (unknown) pets and animals: (units (unknown) date) Yes (2 dogs) unknown) (unknown) (no (unknown) (unknown) . EFW 44 (units (unknown) date) percentile, 2022 unknown) g, 4 lb 7 oz. GOMEZ 14.6. (unknown) (no (unknown) (unknown) prenat.vits,emilia,m (units (unknown) date) [id number] 1 unknown) tab PO DAILY 11/27/21 [History Confirmed (unknown) (no (unknown) (unknown) prevention and (units (unknown) date) Rubella unknown) Immunization (unknown) (no (unknown) (unknown) read the note (units ( unknown) date) carefully and unknown) recognize, using context, where these substitutions (unknown) (no (unknown) (unknown) recheck a growth (units (unknown) date) ultrasound, unknown) ordered, for IVF . (unknown) (no (unknown) (unknown) resolve, only has (units (unknown) date) felt an occasional unknown) contraction. No LOF or VB. Feeling good (unknown) (no (unknown) (unknown) reviewed had a (units (unknown) date) palpate for unknown) contractions, and if having every 10 minutes or more (unknown) (no (unknown) (unknown) reviewed, (units (unkn own) date) coverage 24 hours unknown) a day and participation of father in care (unknown) (no (unknown) (unknown) routine (units ( unknown) date) movement. She will unknown) do her Glucola/H/H next visit. Offered, (unknown) (no (unknown) (unknown) screen next (units (un known) date) visit. unknown) (unknown) (no (unknown) (unknown) seatbelt use: (units ( unknown) date) always unknown) (unknown) (no (unknown) (unknown) second hand (units (un known) date) exposure: No unknown) (unknown) (no (unknown) (unknown) she is feeling (units ( unknown) date) [place] or unknown) the baby, when feels tight in the upper abdomen. (unknown) (no (unknown) (unknown) software. 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 After (units (unknown) date) review, may need unknown) to increase water intake recently, and (unknown) (no (unknown) (unknown) to use as an (units (u nknown) date) abdominal binder. unknown) Will try to fit her for an abdominal binder (unknown) (no (unknown) (unknown) travel history: (units (unknown) date) recent ([place] 12/2020) (unknown) (no (unknown) (unknown) water heater temp (units (unknown) date) set < 120 deg: No unknown) (unsure) (unknown) (no (unknown) (unknown) well-balanced (units ( unknown) date) diet: about half unknown) the time (unknown) (no (unknown) (unknown) working smoke (units ( unknown) date) detector in home: unknown) Yes Result panel 334 (unknown) (no date) (unknown) (unknown) NEG for (units (unkn own) Grp B Strep unknown) Result panel 335 (unknown) (no (unknown) (unknown) (no value) (units (unk nown) date) unknown) (unknown) (no (unknown) (unknown) [id number] (units (unkno wn) date) unknown) (unknown) (no (unknown) (unknown) 1. Single live (units (unknown) date) intrauterine unknown) gestation with fetus in vertex presentation. (unknown) (no (unknown) (unknown) 06/14/22 (units (unkno wn) date) unknown) (unknown) (no (unknown) (unknown) [address] [place] [address] (units (unknown) date) unknown) (unknown) (no (unknown) (unknown) 18.6 cm. (units (unkno wn) date) unknown) (unknown) (no (unknown) (unknown) AC: 34.3 cm, 38 (units (unknown) date) weeks, 2 days. unknown) (unknown) (no (unknown) (unknown) Accession (units (unkn own) date) Number: unknown) [id number] (unknown) (no (unknown) (unknown) Age/Sex: 27 / F (units (unknown) date) Date of Service: unknown) (unknown) (no (unknown) (unknown) Amniotic fluid (units (unknown) date) index: 18.6 cm, unknown) normal range is 5-24 cm. (unknown) (no (unknown) (unknown) SHUN Terry (units ( unknown) date) [id number] unknown) (unknown) (no (unknown) (unknown) Approved by: (units (u nknown) date) Pepe Thomas M.D. on unknown) 06/14/2022 at 16:24 (unknown) (no (unknown) (unknown) BPD: 9.2 cm, 37 (units (unknown) date) weeks, 4 days. unknown) (unknown) (no (unknown) (unknown) COMPARISON: (units (un known) date) [facility], unknown) US, US OB >= 14 WEEKS FETUS, 02/10/2022, 11:48. (unknown) (no (unknown) (unknown) Clinically (units (unk nown) date) estimated unknown) gestational age: 38 weeks, 0 days (unknown) (no (unknown) (unknown) : 1995 (units (unknown) date) Acct:[id number] unknown) (unknown) (no (unknown) (unknown) Dictated by: (units (u nknown) date) Pepe Thomas M.D. on unknown) 06/14/2022 at 16:21 (unknown) (no (unknown) (unknown) Endovaginal (units (un known) date) scanning: Not unknown) indicated (unknown) (no (unknown) (unknown) Estimated date (units (unknown) date) of delivery (LORY) unknown) from first dating scan: 06/26/2022 (unknown) (no (unknown) (unknown) Estimated (units (unknown) date) weight 3357 unknown) grams, and is at 56 percentile. (unknown) (no (unknown) (unknown) Estimated (units (unknown) date) weight is at 56 unknown) percent. (unknown) (no (unknown) (unknown) Estimated (units (unkn own) date) gestational age unknown) from initial scan: 38 weeks, 2 days. (unknown) (no (unknown) (unknown) FINDINGS: (units (unkn own) date) unknown) (unknown) (no (unknown) (unknown) FL: 7.2 cm, 36 (units (unknown) date) weeks, 6 days. unknown) (unknown) (no (unknown) (unknown) heart (units (un known) date) rate: 136 beats unknown) per minute. (unknown) (no (unknown) (unknown) Silvino (units (unkno wn) date) unknown) (unknown) (no (unknown) (unknown) First dating (units (u nknown) date) scan (date and unknown) location): 12/08/2021 (unknown) (no (unknown) (unknown) General: A (units (unk nown) date) single living unknown) intrauterine gestation is present. (unknown) (no (unknown) (unknown) HC: 34.1 cm, 39 (units (unknown) date) weeks, 2 days. unknown) (unknown) (no (unknown) (unknown) IMPRESSION: (units (un known) date) unknown) (unknown) (no (unknown) (unknown) INDICATIONS: (units (u nknown) date) Growth U/S unknown) (unknown) (no (unknown) (unknown) [facility] (units (unknown) date) unknown) (unknown) (no (unknown) (unknown) LMP-based (units (unkn own) date) estimated date of unknown) delivery (LORY): 06/26/2022 (unknown) (no (unknown) (unknown) Last menstrual (units (unknown) date) period (LMP): unknown) 09/19/2021 (unknown) (no (unknown) (unknown) Loc: [place] (units (unkno wn) date) unknown) (unknown) (no (unknown) (unknown) Maternal (units (unkno wn) date) cervical canal: unknown) Not well seen. (unknown) (no (unknown) (unknown) [facility] (unkno wn) [facility] [place], unknown) US OB >= 14 WEEKS FETUS, 05/10/2022, 8:37. (unknown) (no (unknown) (unknown) OUTSIDE/PRIOR (units ( unknown) date) DATING DATA: unknown) (unknown) (no (unknown) (unknown) Ordering (units (unkno wn) date) Provider: unknown) Lynne Campuzano MD (unknown) (no (unknown) (unknown) PROCEDURE: US OB (units (unknown) date) LIMITED unknown) (unknown) (no (unknown) (unknown) Patient: (units (unkno wn) date) Trini Lorenz unknown) MR#: [id number] (unknown) (no (unknown) (unknown) Placenta: (units (unkn own) date) Placental unknown) position is posterior, without previa. (unknown) (no (unknown) (unknown) Presentation: (units ( unknown) date) Vertex. unknown) (unknown) (no (unknown) (unknown) Procedure: US OB (units (unknown) date) limited unknown) (unknown) (no (unknown) (unknown) Real-time (units (unkn own) date) scanning was unknown) performed of the fetus for biophysical profile, with (unknown) (no (unknown) (unknown) Signed (units (unkno wn) date) unknown) (unknown) (no (unknown) (unknown) Single deepest (units (unknown) date) vertical pocket unknown) is 6.1 cm. (unknown) (no (unknown) (unknown) TECHNIQUE: (units (unk nown) date) unknown) (unknown) (no (unknown) (unknown) To assist (units (unkn own) date) unknown) (unknown) (no (unknown) (unknown) Ultrasound (units (unk nown) date) Report unknown) (unknown) (no (unknown) (unknown) We strive to (units (u nknown) date) produce accurate, unknown) complete, and clear reports of imaging services. (unknown) (no (unknown) (unknown) and voice (units (unkn own) date) recognition unknown) software. Therefore, it may contain abnormal punctuation, (unknown) (no (unknown) (unknown) documentation. (units (unknown) date) unknown) (unknown) (no (unknown) (unknown) heart (units (unkno wn) date) unknown) (unknown) (no (unknown) (unknown) image (units (unkno wn) date) unknown) (unknown) (no (unknown) (unknown) inaccuracies. (units ( unknown) date) unknown) (unknown) (no (unknown) (unknown) insertions (units (unk nown) date) and/or omissions. unknown) Occasional wrong-word or sound-alike substitutions (unknown) (no (unknown) (unknown) may (units (unkno wn) date) unknown) (unknown) (no (unknown) (unknown) occur. Though we (units (unknown) date) review the report unknown) and make efforts to correct it, we do (unknown) (no (unknown) (unknown) rate is 136 (units (un known) date) beats per minute. unknown) Normal amount of amniotic fluid. GOMEZ equals (unknown) (no (unknown) (unknown) recommend that (units (unknown) date) unknown) (unknown) (no (unknown) (unknown) templates (units (unkn own) date) unknown) (unknown) (no (unknown) (unknown) the report be (units ( unknown) date) read carefully in unknown) proper context to recognize any text (unknown) (no (unknown) (unknown) us in improving (units (unknown) date) patient care, unknown) this report was composed using standard report Result panel 336 (unknown) (no (unknown) (unknown) (no value) (units (unk nown) date) unknown) (unknown) (no (unknown) (unknown) (+18 lb) 102/68 N (units (unknown) date) unknown) (unknown) (no (unknown) (unknown) (+26 lb) 128/72 N (units (unknown) date) unknown) (unknown) (no (unknown) (unknown) (+3 lb) 110/70 N (units (unknown) date) unknown) (unknown) (no (unknown) (unknown) (+32 lb) 110/72 1 (units (unknown) date) unknown) (unknown) (no (unknown) (unknown) (+36 lb) 114/64 N (units (unknown) date) unknown) (unknown) (no (unknown) (unknown) (+39 lb) 104/70 (units (unknown) date) TR unknown) (unknown) (no (unknown) (unknown) (+43 lb) 122/68 (units (unknown) date) TR unknown) (unknown) (no (unknown) (unknown) (+6 lb) 104/66 TR (units (unknown) date) unknown) (unknown) (no (unknown) (unknown) (+9 lb) 108/78 N (units (unknown) date) unknown) (unknown) (no (unknown) (unknown) Genetic (units (unkn own) date) Screening/Teratolo unknown) gy Counseling - Includes patient, baby's father, or (unknown) (no (unknown) (unknown) -?-?-?-?-?-?-?-?- (units (unknown) date) ?-?-?-? unknown) (unknown) (no (unknown) (unknown) 12/08/2021 (units (unk nown) date) Caceres viable unknown) intrauterine gestation size equal to dates (unknown) (no (unknown) (unknown) 12/08/21 (units (unkno wn) date) unknown) (unknown) (no (unknown) (unknown) 01/05/22 (units (unkno wn) date) unknown) (unknown) (no (unknown) (unknown) 02/02/22 (units (unkno wn) date) unknown) (unknown) (no (unknown) (unknown) 02/17/19 8 (units (unk nown) date) spontaneous unknown) (unknown) (no (unknown) (unknown) 02/28/22 (units (unkno wn) date) unknown) (unknown) (no (unknown) (unknown) 03/28/22 (units (unkno wn) date) unknown) (unknown) (no (unknown) (unknown) 04/25/22 (units (unkno wn) date) unknown) (unknown) (no (unknown) (unknown) 05/10/22 (units (unkno wn) date) unknown) (unknown) (no (unknown) (unknown) 05/24/22 (units (unkno wn) date) unknown) (unknown) (no (unknown) (unknown) 06/07/22 (units (unkno wn) date) unknown) (unknown) (no (unknown) (unknown) 06/15/22 (units (unkno wn) date) unknown) (unknown) (no (unknown) (unknown) 06/15/22] (units (unkn own) date) unknown) (unknown) (no (unknown) (unknown) 10w 6d 183 lb (units ( unknown) date) unknown) (unknown) (no (unknown) (unknown) 07/01/22 (units (unkno wn) date) Ultrasound #1 37w unknown) 5d (unknown) (no (unknown) (unknown) 11:35 (units (unkno wn) date) unknown) (unknown) (no (unknown) (unknown) 14w 6d 186 lb (units ( unknown) date) unknown) (unknown) (no (unknown) (unknown) 18w 6d 189 lb (units ( unknown) date) unknown) (unknown) (no (unknown) (unknown) 22w 4d 198 lb (units ( unknown) date) unknown) (unknown) (no (unknown) (unknown) 26w 4d 206 lb (units ( unknown) date) unknown) (unknown) (no (unknown) (unknown) 26wk4d. Pt with (units (unknown) date) some abdominal unknown) musculoskeletal discomfort, lower and (unknown) (no (unknown) (unknown) [id number], IVF (units ( unknown) date) , at unknown) 22wks here for DANYELLE visit. Constipation, no (unknown) (no (unknown) (unknown) 27yo (units (unkn own) date) presents for DANYELLE unknown) visit @ 36wk5d. She reports some normal (unknown) (no (unknown) (unknown) 2wk (units (unkno wn) date) unknown) (unknown) (no (unknown) (unknown) 30w 4d 212 lb (units ( unknown) date) unknown) (unknown) (no (unknown) (unknown) 32w 5d 216 lb (units ( unknown) date) unknown) (unknown) (no (unknown) (unknown) 32wk5d. Trini (units (unknown) date) questions how to unknown) feel contractions, uncertain at times if (unknown) (no (unknown) (unknown) 34w 5d 219 lb (units ( unknown) date) unknown) (unknown) (no (unknown) (unknown) 36w 5d 223 lb (units ( unknown) date) unknown) (unknown) (no (unknown) (unknown) [id number] (units (unkno wn) date) unknown) (unknown) (no (unknown) (unknown) Abnormal Pap (units (u nknown) date) smear of cervix unknown) (-2013) (unknown) (no (unknown) (unknown) Abnormal lab (units (u nknown) date) values 1st unknown) trimester: discussed (unknown) (no (unknown) (unknown) Add'l Plan (units (unk nown) date) Details unknown) (unknown) (no (unknown) (unknown) Age/Sex: 27 / F (units (unknown) date) Date of Service: unknown) (unknown) (no (unknown) (unknown) Allergies (units (unkn own) date) unknown) (unknown) (no (unknown) (unknown) [place], [place] (units ( unknown) date) [id number] unknown) (unknown) (no (unknown) (unknown) Anesthesia (units (unk nown) date) unknown) (unknown) (no (unknown) (unknown) Aneuploidy (units (unk nown) date) Screening Offered: unknown) Declined (unknown) (no (unknown) (unknown) Anticipated (units (un known) date) course of unknown) care: discussed (unknown) (no (unknown) (unknown) Assessment and (units (unknown) date) Plan unknown) (unknown) (no (unknown) (unknown) Attending Dr: (units ( unknown) date) Kacy Palomo unknown) P.A-C (unknown) (no (unknown) (unknown) BMI 39.8 (units (unkno wn) date) unknown) (unknown) (no (unknown) (unknown) BP 116/68 (units (unkn own) date) unknown) (unknown) (no (unknown) (unknown) (units (unkno wn) date) Plan/Preferences unknown) (unknown) (no (unknown) (unknown) Planning (units (unknown) date) unknown) (unknown) (no (unknown) (unknown) Blood Pressure (units (unknown) date) Location Rt unknown) brachial (unknown) (no (unknown) (unknown) Blood (units (unkno wn) date) transfusions?: yes unknown) (never had but willing to accept) (unknown) (no (unknown) (unknown) Breastfeed Preg (units (unknown) date) Comp Name unknown) (unknown) (no (unknown) (unknown) Childbirth (units (unk nown) date) Classes: discussed unknown) (unknown) (no (unknown) (unknown) Current Estimate (units (unknown) date) 06/30/22 Manual unknown) 37w 6d IVF pregnan (unknown) (no (unknown) (unknown) Current (units (unknown) date) History unknown) (unknown) (no (unknown) (unknown) : 1995 (units (unknown) date) Acct:[id number] unknown) (unknown) (no (unknown) (unknown) Date of positive (units (unknown) date) home unknown) test: 10/16/21 (unknown) (no (unknown) (unknown) Date (units (unkno wn) date) unknown) (unknown) (no (unknown) (unknown) Del. Date (units (unkn own) date) GA/Weeks Labor unknown) Lgth Wt Sex Route Outcome Anesthesia Place (unknown) (no (unknown) (unknown) Delivery Date: (units (unknown) date) 02/17/19 Last unknown) Updated by: Juhi Hayes R.N. (unknown) (no (unknown) (unknown) Delv (units (unkno wn) date) unknown) (unknown) (no (unknown) (unknown) Denies Congenital (units (unknown) date) Heart Defect, unknown) Denies Down Syndrome, Denies Muscular Dystrophy, (unknown) (no (unknown) (unknown) Denies Maternal (units (unknown) date) Metabolic Disorder unknown) (EG,TYPE 1 Diabetes, PKU), Denies Patient or (unknown) (no (unknown) (unknown) Denies Neural (units ( unknown) date) Tube Defect unknown) (Meningomyelocele, Spina Bifida, or Anencephaly), (unknown) (no (unknown) (unknown) Denies Sickle (units ( unknown) date) Cell Disease or unknown) Trait (), Denies Hemophilia or other blood (unknown) (no (unknown) (unknown) Denies Epifanio-Sachs (units (unknown) date) (Ashkenazi Quaker, unknown) [place], [place]ian), Denies Nadja (unknown) (no (unknown) (unknown) Denies other (units (u nknown) date) unknown) (unknown) (no (unknown) (unknown) Denies over the (units (unknown) date) counter unknown) medications, Denies alcohol, Denies illicit drugs and (unknown) (no (unknown) (unknown) Depression: (units (un known) date) discussed unknown) (unknown) (no (unknown) (unknown) Dept at (units (unkno wn) date) . 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), (unknown) (no (unknown) (unknown) Documented By: (units (unknown) date) Kacy Palomo unknown) POllie 06/15/22 1134 (unknown) (no (unknown) (unknown) Draft (units (unkno wn) date) unknown) (unknown) (no (unknown) (unknown) LORY Calculator (units (unknown) date) unknown) (unknown) (no (unknown) (unknown) EGA Weight BP (units ( unknown) date) UGlucose unknown) (unknown) (no (unknown) (unknown) Encounter for in (units (unknown) date) vitro unknown) fertilization () (unknown) (no (unknown) (unknown) Estimated (units (unkn own) date) Delivery Date unknown) Method Current (unknown) (no (unknown) (unknown) Exercise and (units (u nknown) date) activity, unknown) work/environmental /hazards, Sexual activity, X-ray (unknown) (no (unknown) (unknown) Expected Delivery (units (unknown) date) Route/Plan unknown) (unknown) (no (unknown) (unknown) FM returns to a (units (unknown) date) lot of normal unknown) movement. On exam today, FM seen. Advised her, (unknown) (no (unknown) (unknown) Family History (units (unknown) date) (Updated 01/04/22 unknown) @ 23:06 by Paris Davalos) (unknown) (no (unknown) (unknown) Father of Baby: (units (unknown) date) [place] unknown) (unknown) (no (unknown) (unknown) [facility]) (unknown) (no (unknown) (unknown) First Trimester (units (unknown) date) Education unknown) Checklist (unknown) (no (unknown) (unknown) (units (unkno wn) date) unknown) (unknown) (no (unknown) (unknown) Genetic Screening (units (unknown) date) + Counseling unknown) (unknown) (no (unknown) (unknown) Genetic Screening (units (unknown) date) unknown) (unknown) (no (unknown) (unknown) Grandfather (units (un known) date) Diabetes mellitus unknown) (unknown) (no (unknown) (unknown) Grandmother (units (un known) date) Breast cancer unknown) (unknown) (no (unknown) (unknown) Grandmother (units (un known) date) Hypertension unknown) (unknown) (no (unknown) (unknown) 2 (units (unkn own) date) Multiple births unknown) (unknown) (no (unknown) (unknown) HIV risk (units (unkno wn) date) evaluation: low unknown) risk (unknown) (no (unknown) (unknown) Health Center (units ( unknown) date) Education unknown) (unknown) (no (unknown) (unknown) Health center (units ( unknown) date) information: unknown) nature of practice discussed, visit schedule (unknown) (no (unknown) (unknown) Height 5 ft 3 in (units (unknown) date) unknown) (unknown) (no (unknown) (unknown) Hepatitis C risk (units (unknown) date) evaluation: low unknown) risk (unknown) (no (unknown) (unknown) History of (units (unk nown) date) Hepatitis B: No unknown) (unknown) (no (unknown) (unknown) History of (units (unk nown) date) Hepatitis C: No unknown) (unknown) (no (unknown) (unknown) History of LEEP (units (unknown) date) procedure unknown) (unknown) (no (unknown) (unknown) 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) unknown) (unknown) (no (unknown) (unknown) Nemo's (units (u nknown) date) Chorea, Denies unknown) Other inherited genetic or chromosomal disorder, (unknown) (no (unknown) (unknown) Hx # (units (u nknown) date) Pregnancies unknown) Elective abortions (unknown) (no (unknown) (unknown) Hx # Term (units (unkn own) date) Pregnancies unknown) Ectopic pregnancies (unknown) (no (unknown) (unknown) Hx of (units (unkno wn) date) tonsillectomy unknown) () (unknown) (no (unknown) (unknown) IVF for this (units (u nknown) date) , unknown) declined Echo 02/28/22 32 wk growth US 44%, f/u (unknown) (no (unknown) (unknown) Infection History (units (unknown) date) unknown) (unknown) (no (unknown) (unknown) Infection history (units (unknown) date) comments: needs unknown) flu + covid vaccines (unknown) (no (unknown) (unknown) Infectious (units (unk nown) date) Disease Education unknown) (unknown) (no (unknown) (unknown) Infectious (units (unk nown) date) disease exposure: unknown) chicken pox immunity discussed, tuberculosis (unknown) (no (unknown) (unknown) 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) unknown) (unknown) (no (unknown) (unknown) Initial Weight: (units (unknown) date) 180 lb unknown) (unknown) (no (unknown) (unknown) Initials (units (unkno wn) date) unknown) (unknown) (no (unknown) (unknown) Intake Clinical (units (unknown) date) Staff unknown) (unknown) (no (unknown) (unknown) Intake Note: (units (u nknown) date) unknown) (unknown) (no (unknown) (unknown) Intake performed (units (unknown) date) by: unknown) Elba Hopson (unknown) (no (unknown) (unknown) Intake (units (unkno wn) date) unknown) (unknown) (no (unknown) (unknown) Live with someone (units (unknown) date) with TB or exposed unknown) to TB: No (unknown) (no (unknown) (unknown) Loc: [facility] (units (unkno wn) date) unknown) (unknown) (no (unknown) (unknown) 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) (-2011) (unknown) (no (unknown) (unknown) Marital status: (units (unknown) date) unknown) (unknown) (no (unknown) (unknown) Medical History (units (unknown) date) (Updated 02/28/22 unknown) @ 08:37 by Lynne Campuzano MD) (unknown) (no (unknown) (unknown) Medications (units (un known) date) unknown) (unknown) (no (unknown) (unknown) Mother (units (unkno wn) date) Hypertension unknown) (unknown) (no (unknown) (unknown) N 140 15 4wk (units (u nknown) date) unknown) (unknown) (no (unknown) (unknown) N Yes 142 19 girl (units (unknown) date) 4wk unknown) (unknown) (no (unknown) (unknown) N Yes no 140 (units (u nknown) date) Vertex absent 2wk unknown) (unknown) (no (unknown) (unknown) N Yes no 143 22 (units (unknown) date) absent 4wk unknown) (unknown) (no (unknown) (unknown) N Yes no 144 27 (units (unknown) date) absent 4 wk unknown) (unknown) (no (unknown) (unknown) N Yes no 144 (units (u nknown) date) Vertex absent EFW unknown) 44%, GOMEZ 14 (unknown) (no (unknown) (unknown) N Yes no 145 30 (units (unknown) date) absent 4wk unknown) (unknown) (no (unknown) (unknown) N Yes no 148 37 (units (unknown) date) Vertex absent unknown) 0/long order (unknown) (no (unknown) (unknown) NF (units (unkno wn) date) unknown) (unknown) (no (unknown) (unknown) No Known Drug (units ( unknown) date) Allergies Allergy unknown) (Unverified 06/15/22 11:35) (unknown) (no (unknown) (unknown) No vaginal (units (unk nown) date) bleeding. No unknown) change in vaginal discharge. No fevers. No vaginal (unknown) (no (unknown) (unknown) Notes (units (unkno wn) date) unknown) (unknown) (no (unknown) (unknown) Number of Living (units (unknown) date) Children unknown) (unknown) (no (unknown) (unknown) Number of (units (unkn own) date) fetuses:: Single unknown) (unknown) (no (unknown) (unknown) Nutrition and (units ( unknown) date) weight gain unknown) counseling: special diet: discussed (unknown) (no (unknown) (unknown) OB Office Visit (units (unknown) date) unknown) (unknown) (no (unknown) (unknown) OB Visit Log (units (u nknown) date) unknown) (unknown) (no (unknown) (unknown) On control (units (unknown) date) at conception?: No unknown) (IVF) (unknown) (no (unknown) (unknown) Other Estimates (units (unknown) date) 06/26/22 LMP unknown) (Certain) 38w 3d (unknown) (no (unknown) (unknown) PFSH (units (unkno wn) date) unknown) (unknown) (no (unknown) (unknown) Para 0 (units (unkno wn) date) Spontaneous unknown) abortions 1 (unknown) (no (unknown) (unknown) Partner history (units (unknown) date) of STD: denies hx unknown) (unknown) (no (unknown) (unknown) Partner history (units (unknown) date) of genital herpes: unknown) No (unknown) (no (unknown) (unknown) Partner: [place] (units (unknown) date) [place] unknown) (unknown) (no (unknown) (unknown) Past Pregnancies (units (unknown) date) unknown) (unknown) (no (unknown) (unknown) Patient is (units (unk nown) date) feeling well. Some unknown) mild cramping. No bleeding. No fevers. (unknown) (no (unknown) (unknown) Patient is (units (unk nown) date) feeling well. Some unknown) pressure sensation but no other concerns. (unknown) (no (unknown) (unknown) Patient's age 35 (units (unknown) date) years or older as unknown) of estimated date of delivery: No (unknown) (no (unknown) (unknown) Patient: (units (unkno wn) date) Trini Lorenz unknown) MR#: [id number] (unknown) (no (unknown) (unknown) Personal history (units (unknown) date) of STD: HPV (2015) unknown) (unknown) (no (unknown) (unknown) Personal history (units (unknown) date) of genital herpes: unknown) No (unknown) (no (unknown) (unknown) Position Sitting (units (unknown) date) unknown) (unknown) (no (unknown) (unknown) History (units (unknown) date) unknown) (unknown) (no (unknown) (unknown) type:: (units (unknown) date) Other Normal unknown) (unknown) (no (unknown) (unknown) (units (unkno wn) date) Education unknown) (unknown) (no (unknown) (unknown) Initial (units (unknown) date) Assessment unknown) (unknown) (no (unknown) (unknown) Specific (units (unknown) date) Issues/Plans unknown) (unknown) (no (unknown) (unknown) Testing: (units (unknown) date) discussed unknown) (unknown) (no (unknown) (unknown) Visit (units (unknown) date) unknown) (unknown) (no (unknown) (unknown) (units (unkno wn) date) education packet: unknown) Child education/plan, symptoms, (unknown) (no (unknown) (unknown) Primary Care (units (u nknown) date) Provider: Britt unknown) Sharmaine (unknown) (no (unknown) (unknown) Primary Ob (units (unk nown) date) Provider: unknown) Lynne Campuzano (unknown) (no (unknown) (unknown) Prior (units (unkno wn) date) GBS-Infected unknown) child: No (unknown) (no (unknown) (unknown) Providers (units (unkn own) date) unknown) (unknown) (no (unknown) (unknown) Quad screen nml (units (unknown) date) unknown) (unknown) (no (unknown) (unknown) DANYELLE visit 34wk5d. (units (unknown) date) Feeling well. She unknown) reports sometimes a few days of (unknown) (no (unknown) (unknown) DANYELLE@30wk4d. She (units (unknown) date) denies any unknown) problems. She bought an abdominal binder and (unknown) (no (unknown) (unknown) Rash or viral (units ( unknown) date) illness since last unknown) menstrual period: No (unknown) (no (unknown) (unknown) Reason For Visit (units (unknown) date) unknown) (unknown) (no (unknown) (unknown) Recent travel (units ( unknown) date) outside of unknown) country?: No (unknown) (no (unknown) (unknown) Recurrent (units (unkn own) date) loss or unknown) a stillbirth: No (unknown) (no (unknown) (unknown) Routine (units (unkno wn) date) precautions and unknown) normal physiological changes of (unknown) (no (unknown) (unknown) Routine (units (unkno wn) date) precautions unknown) reviewed. (unknown) (no (unknown) (unknown) Rubella nonimmune (units (unknown) date) immunize unknown) (unknown) (no (unknown) (unknown) S/P LEEP (loop (units (unknown) date) electrosurgical unknown) excision procedure) () (unknown) (no (unknown) (unknown) Safety (units (unkno wn) date) unknown) (unknown) (no (unknown) (unknown) Signed By: (units (unk nown) date) unknown) (unknown) (no (unknown) (unknown) Smoking Status: (units (unknown) date) Never smoker unknown) (unknown) (no (unknown) (unknown) Smoking/Tobacco (units (unknown) date) use: discussed unknown) (unknown) (no (unknown) (unknown) Social History (units (unknown) date) unknown) (unknown) (no (unknown) (unknown) Surgical History (units (unknown) date) (Updated 01/04/22 unknown) @ 23:05 by Paris Davalos) (unknown) (no (unknown) (unknown) Symptoms since (units (unknown) date) LMP: Reports unknown) amenorrhea, nausea, fatigue, urinary frequency, (unknown) (no (unknown) (unknown) TR 174 11 4wk (units ( unknown) date) unknown) (unknown) (no (unknown) (unknown) Tdap status: (units (u nknown) date) immunized unknown) (unknown) (no (unknown) (unknown) Teratogen (units (unkn own) date) Exposures since unknown) LMP/Conception: Denies prescription medications, (unknown) (no (unknown) (unknown) Testing Education (units (unknown) date) unknown) (unknown) (no (unknown) (unknown) Testing education (units (unknown) date) completed: Genetic unknown) testing, group B strep and Cell Free DNA (unknown) (no (unknown) (unknown) This note may (units ( unknown) date) have been all or unknown) partially generated using voice recognition (unknown) (no (unknown) (unknown) Tobacco + (units (unkn own) date) Substance Use unknown) (unknown) (no (unknown) (unknown) Tobacco Status (units (unknown) date) unknown) (unknown) (no (unknown) (unknown) Type(s) of (units (unk nown) date) exercise: none unknown) (unknown) (no (unknown) (unknown) Typically feels (units (unknown) date) in the a.m.. Only unknown) feeling occasionally, nothing routinely. I (unknown) (no (unknown) (unknown) UProtein Movement (units (unknown) date) PreLabor FHR Fndl unknown) Ht Pres Edema Cerv Exam US/Comment Next Appt (unknown) (no (unknown) (unknown) Ultrasound (units (unk nown) date) Details:: Prior 7 unknown) week 3 day ultrasound at IVF on 11/15/21 clinic (unknown) (no (unknown) (unknown) Ultrasound (units (unk nown) date) unknown) (unknown) (no (unknown) (unknown) Vaginal (units (unkno wn) date) unknown) (unknown) (no (unknown) (unknown) Varicella/chicken (units (unknown) date) pox status: unknown) immunized and previous disease (mild case as (unknown) (no (unknown) (unknown) Visit Date: (units (un known) date) 12/08/21 Last unknown) Updated by: Carrie Pichardo MD (unknown) (no (unknown) (unknown) Visit Date: (units (un known) date) 01/05/22 Last unknown) Updated by: Carrie Pichardo MD (unknown) (no (unknown) (unknown) Visit Date: (units (un known) date) 02/02/22 Last unknown) Updated by: Carrie Pichardo MD (unknown) (no (unknown) (unknown) Visit Date: (units (un known) date) 02/28/22 Last unknown) Updated by: Lynne Campuzano MD (unknown) (no (unknown) (unknown) Visit Date: (units (un known) date) 03/28/22 Last unknown) Updated by: Lynne Campuzano MD (unknown) (no (unknown) (unknown) Visit Date: (units (un known) date) 04/25/22 Last unknown) Updated by: Lynne Campuzano MD (unknown) (no (unknown) (unknown) Visit Date: (units (un known) date) 05/10/22 Last unknown) Updated by: Lynne Campuzano MD (unknown) (no (unknown) (unknown) Visit Date: (units (un known) date) 05/24/22 Last unknown) Updated by: Lynne Campuzano MD (unknown) (no (unknown) (unknown) Visit Date: (units (un known) date) 06/07/22 Last unknown) Updated by: Lynne Campuzano MD (unknown) (no (unknown) (unknown) Visit Reasons: OB (units (unknown) date) check for [place] unknown) (unknown) (no (unknown) (unknown) Vitals (units (unkno wn) date) unknown) (unknown) (no (unknown) (unknown) Vitamins and (units (u nknown) date) iron, Diet and unknown) weight gain, Fish and mercury intake, Caffeine use, (unknown) (no (unknown) (unknown) WG (units (unkno wn) date) unknown) (unknown) (no (unknown) (unknown) Weight 225 lb (units ( unknown) date) unknown) (unknown) (no (unknown) (unknown) Millis teeth (units (u nknown) date) extracted () unknown) (unknown) (no (unknown) (unknown) Zika virus (units (unk nown) date) exposure: No unknown) (unknown) (no (unknown) (unknown) after she (units (unkn own) date) hydrates. No unknown) persistent cramping, ctx, LOF or VB. Discussed GBS (unknown) (no (unknown) (unknown) alcohol intake: (units (unknown) date) former unknown) (unknown) (no (unknown) (unknown) amh (units (unkno wn) date) unknown) (unknown) (no (unknown) (unknown) and office visits (units (unknown) date) unknown) (unknown) (no (unknown) (unknown) anyone in either (units (unknown) date) family with: unknown) (unknown) (no (unknown) (unknown) baby's father had (units (unknown) date) a child with unknown) defects not listed above and Denies Other (unknown) (no (unknown) (unknown) bleeding. She is (units (unknown) date) feeling baby move. unknown) Routine precautions reviewed. (unknown) (no (unknown) (unknown) caffeine: Yes (units ( unknown) date) (aware of 200mg unknown) daily limit) (unknown) (no (unknown) (unknown) carbon monox (units (u nknown) date) detector in home: unknown) Yes (unknown) (no (unknown) (unknown) child) (units (unkno wn) date) unknown) (unknown) (no (unknown) (unknown) concerns with (units ( unknown) date) COVID infection unknown) and and urged patient to consider (unknown) (no (unknown) (unknown) consistent with (units (unknown) date) dates. unknown) (unknown) (no (unknown) (unknown) cramping, vaginal (units (unknown) date) bleeding or unknown) leakage of fluid. Doing her Glucola today. (unknown) (no (unknown) (unknown) current (units (unkno wn) date) occupational unknown) exposures/hazards: No (unknown) (no (unknown) (unknown) cy (units (unkno wn) date) unknown) (unknown) (no (unknown) (unknown) cytotec (units (unkno wn) date) unknown) (unknown) (no (unknown) (unknown) daily servings (units (unknown) date) fruits/ve-4 unknown) (unknown) (no (unknown) (unknown) declined referral (units (unknown) date) for unknown) echocardiogram for IVF . (unknown) (no (unknown) (unknown) discussed (units (unkn own) date) increased fiber in unknown) diet. May use MiraLax. No uterine type cramping, (unknown) (no (unknown) (unknown) discussed with (units (unknown) date) the patient. unknown) Patient is not COVID vaccinated. Discussed (unknown) (no (unknown) (unknown) disorders, Denies (units (unknown) date) Cystic Fibrosis, unknown) Denies Mental Retardation/Autism , Denies (unknown) (no (unknown) (unknown) do you feel safe (units (unknown) date) at home: Yes unknown) (unknown) (no (unknown) (unknown) drops of urine, (units (unknown) date) does feel it is unknown) from the bladder. No vaginal leakage of fluid (unknown) (no (unknown) (unknown) during the past (units (unknown) date) year weight has: unknown) decreased > 10 lbs (lost 30 lbs) (unknown) (no (unknown) (unknown) eating out: (units (un known) date) rarely or never unknown) (unknown) (no (unknown) (unknown) ed 1wk (units (unkno wn) date) unknown) (unknown) (no (unknown) (unknown) education level: (units (unknown) date) college unknown) (unknown) (no (unknown) (unknown) exposure (units (unkno wn) date) discussed, CMV unknown) discussed, Toxoplasmosis precautions, Listeriosis (unknown) (no (unknown) (unknown) exposure, (units (unkn own) date) Medication use, unknown) Sauna/hot tub use, Dental care and Travel (unknown) (no (unknown) (unknown) feeling some less (units (unknown) date) movement, but she unknown) does kick counts and gets enough kicks, then (unknown) (no (unknown) (unknown) feeling some upper (units (unknown) date) discomfort when unknown) standing, but some muscle support tape to try (unknown) (no (unknown) (unknown) feels better with (units (unknown) date) using this when on unknown) her feet. Feeling good movement. No (unknown) (no (unknown) (unknown) movement (units (unknown) date) daily. GBS screen unknown) collected. She desired a cervical check. Will (unknown) (no (unknown) (unknown) fire extinguisher (units (unknown) date) in home: No unknown) (unknown) (no (unknown) (unknown) firearms in home: (units (unknown) date) No unknown) (unknown) (no (unknown) (unknown) frequency: does (units (unknown) date) not exercise unknown) (unknown) (no (unknown) (unknown) frequent, then to (units (unknown) date) call. Occasionally unknown) feeling vaginal pressure when she sits, (unknown) (no (unknown) (unknown) getting the (units (un known) date) vaccine in unknown) . (unknown) (no (unknown) (unknown) growth US ordered (units (unknown) date) @36wks unknown) (unknown) (no (unknown) (unknown) have occurred. If (units (unknown) date) there are any unknown) questions, please contact the Medical Records (unknown) (no (unknown) (unknown) having a girl (units ( unknown) date) unknown) (unknown) (no (unknown) (unknown) her in for NST. (units (unknown) date) Feels some cramps unknown) in the morning after wakening, then results (unknown) (no (unknown) (unknown) here. No other (units (unknown) date) problems. Feeling unknown) good movement. No contractions, (unknown) (no (unknown) (unknown) household (units (unkn own) date) members: spouse unknown) (unknown) (no (unknown) (unknown) housing: house (units (unknown) date) unknown) (unknown) (no (unknown) (unknown) if she does ever (units (unknown) date) feel significantly unknown) less, then definitely call and will bring (unknown) (no (unknown) (unknown) irritability, (units ( unknown) date) bloating and other unknown) (headaches + constipation) (unknown) (no (unknown) (unknown) leakage of fluid, (units (unknown) date) vaginal bleeding unknown) or abnormal vaginal discharge. Feeling (unknown) (no (unknown) (unknown) marital status: (units (unknown) date) unknown) (unknown) (no (unknown) (unknown) may occur. (units (unk nown) date) Occasional unknown) wrong-word or 'sound-alike' substitutions may have (unknown) (no (unknown) (unknown) medication (units (unk nown) date) options during unknown) labor. Tdap given today. (unknown) (no (unknown) (unknown) musculoskeletal (units (unknown) date) discomforts of unknown) , especially by the end of the day. No (unknown) (no (unknown) (unknown) normal Glucola, (units (unknown) date) hemoglobin was unknown) 11.8. Questions answered regarding pain (unknown) (no (unknown) (unknown) noted cramping, (units (unknown) date) contractions, unknown) vaginal bleeding or leakage of fluid. She had a (unknown) (no (unknown) (unknown) nothing (units (unkno wn) date) persistent. unknown) Feeling good movement. Occasionally leaking few (unknown) (no (unknown) (unknown) number of (units (unkn own) date) children: 0 unknown) (unknown) (no (unknown) (unknown) occupational (units (u nknown) date) status: unemployed unknown) (unknown) (no (unknown) (unknown) occurred due to (units (unknown) date) the inherent unknown) limitations of voice recognition software. Please (unknown) (no (unknown) (unknown) or bleeding. No (units (unknown) date) persistent unknown) cramping. Ultrasound for EFW today due to IVF (unknown) (no (unknown) (unknown) other problems. (units (unknown) date) Overall sleeping unknown) well. She felt a little cramping which (unknown) (no (unknown) (unknown) other problems. (units (unknown) date) Tried 1 Colace unknown) daily without improvement. Discussed increase (unknown) (no (unknown) (unknown) pets and animals: (units (unknown) date) Yes (2 dogs) unknown) (unknown) (no (unknown) (unknown) . EFW 44 (units (unknown) date) percentile, 2022 unknown) g, 4 lb 7 oz. GOMEZ 14.6. (unknown) (no (unknown) (unknown) prenat.vits,emilia,m (units (unknown) date) [id number] 1 unknown) tab PO DAILY 11/27/21 [History Confirmed (unknown) (no (unknown) (unknown) prevention and (units (unknown) date) Rubella unknown) Immunization (unknown) (no (unknown) (unknown) pt here for ob (units (unknown) date) check unknown) (unknown) (no (unknown) (unknown) read the note (units ( unknown) date) carefully and unknown) recognize, using context, where these substitutions (unknown) (no (unknown) (unknown) recheck a growth (units (unknown) date) ultrasound, unknown) ordered, for IVF . (unknown) (no (unknown) (unknown) resolve, only has (units (unknown) date) felt an occasional unknown) contraction. No LOF or VB. Feeling good (unknown) (no (unknown) (unknown) reviewed had a (units (unknown) date) palpate for unknown) contractions, and if having every 10 minutes or more (unknown) (no (unknown) (unknown) reviewed, (units (unkn own) date) coverage 24 hours unknown) a day and participation of father in care (unknown) (no (unknown) (unknown) routine (units ( unknown) date) movement. She will unknown) do her Glucola/H/H next visit. Offered, (unknown) (no (unknown) (unknown) screen next (units (un known) date) visit. unknown) (unknown) (no (unknown) (unknown) seatbelt use: (units ( unknown) date) always unknown) (unknown) (no (unknown) (unknown) second hand (units (un known) date) exposure: No unknown) (unknown) (no (unknown) (unknown) she is feeling (units ( unknown) date) [place] or unknown) the baby, when feels tight in the upper abdomen. (unknown) (no (unknown) (unknown) software. 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 After (units (unknown) date) review, may need unknown) to increase water intake recently, and (unknown) (no (unknown) (unknown) to use as an (units (u nknown) date) abdominal binder. unknown) Will try to fit her for an abdominal binder (unknown) (no (unknown) (unknown) travel history: (units (unknown) date) recent ([place] unknown) 12/2020) (unknown) (no (unknown) (unknown) water heater temp (units (unknown) date) set < 120 deg: No unknown) (unsure) (unknown) (no (unknown) (unknown) well-balanced (units ( unknown) date) diet: about half unknown) the time (unknown) (no (unknown) (unknown) working smoke (units ( unknown) date) detector in home: unknown) Yes Result panel 337 (unknown) (no (unknown) (unknown) (no value) (units (unk nown) date) unknown) (unknown) (no (unknown) (unknown) (+18 lb) 102/68 N (units (unknown) date) unknown) (unknown) (no (unknown) (unknown) (+26 lb) 128/72 N (units (unknown) date) unknown) (unknown) (no (unknown) (unknown) (+3 lb) 110/70 N (units (unknown) date) unknown) (unknown) (no (unknown) (unknown) (+32 lb) 110/72 1 (units (unknown) date) unknown) (unknown) (no (unknown) (unknown) (+36 lb) 114/64 N (units (unknown) date) unknown) (unknown) (no (unknown) (unknown) (+39 lb) 104/70 (units (unknown) date) TR unknown) (unknown) (no (unknown) (unknown) (+43 lb) 122/68 (units (unknown) date) TR unknown) (unknown) (no (unknown) (unknown) (+45 lb) 116/68 (units (unknown) date) TR unknown) (unknown) (no (unknown) (unknown) (+6 lb) 104/66 TR (units (unknown) date) unknown) (unknown) (no (unknown) (unknown) (+9 lb) 108/78 N (units (unknown) date) unknown) (unknown) (no (unknown) (unknown) (1) 37 weeks (units (u nknown) date) gestation of unknown) : (unknown) (no (unknown) (unknown) Genetic (units (unkn own) date) Screening/Teratolo unknown) gy Counseling - Includes patient, baby's father, or (unknown) (no (unknown) (unknown) -?-?-?-?-?-?-?-?- (units (unknown) date) ?-?-?-? unknown) (unknown) (no (unknown) (unknown) 12/08/2021 (units (unk nown) date) Caceres viable unknown) intrauterine gestation size equal to dates (unknown) (no (unknown) (unknown) 12/08/21 (units (unkno wn) date) unknown) (unknown) (no (unknown) (unknown) 01/05/22 (units (unkno wn) date) unknown) (unknown) (no (unknown) (unknown) 02/02/22 (units (unkno wn) date) unknown) (unknown) (no (unknown) (unknown) 02/17/19 8 (units (unk nown) date) spontaneous unknown) (unknown) (no (unknown) (unknown) 02/28/22 (units (unkno wn) date) unknown) (unknown) (no (unknown) (unknown) 03/28/22 (units (unkno wn) date) unknown) (unknown) (no (unknown) (unknown) 04/25/22 (units (unkno wn) date) unknown) (unknown) (no (unknown) (unknown) 05/10/22 (units (unkno wn) date) unknown) (unknown) (no (unknown) (unknown) 05/24/22 (units (unkno wn) date) unknown) (unknown) (no (unknown) (unknown) 06/07/22 (units (unkno wn) date) unknown) (unknown) (no (unknown) (unknown) 06/15/22 1238 (units ( unknown) date) unknown) (unknown) (no (unknown) (unknown) 06/15/22 (units (unkno wn) date) unknown) (unknown) (no (unknown) (unknown) 06/15/22] (units (unkn own) date) unknown) (unknown) (no (unknown) (unknown) 10w 6d 183 lb (units ( unknown) date) unknown) (unknown) (no (unknown) (unknown) 07/01/22 (units (unkno wn) date) Ultrasound #1 37w unknown) 5d (unknown) (no (unknown) (unknown) 11:35 (units (unkno wn) date) unknown) (unknown) (no (unknown) (unknown) 14w 6d 186 lb (units ( unknown) date) unknown) (unknown) (no (unknown) (unknown) 18w 6d 189 lb (units ( unknown) date) unknown) (unknown) (no (unknown) (unknown) 22w 4d 198 lb (units ( unknown) date) unknown) (unknown) (no (unknown) (unknown) 26w 4d 206 lb (units ( unknown) date) unknown) (unknown) (no (unknown) (unknown) 26wk4d. Pt with (units (unknown) date) some abdominal unknown) musculoskeletal discomfort, lower and (unknown) (no (unknown) (unknown) [id number], IVF (units ( unknown) date) , at unknown) 22wks here for DANYELLE visit. Constipation, no (unknown) (no (unknown) (unknown) 27yo (units (unkn own) date) presents for DANYELLE unknown) visit @ 36wk5d. She reports some normal (unknown) (no (unknown) (unknown) 2wk (units (unkno wn) date) unknown) (unknown) (no (unknown) (unknown) 30w 4d 212 lb (units ( unknown) date) unknown) (unknown) (no (unknown) (unknown) 32w 5d 216 lb (units ( unknown) date) unknown) (unknown) (no (unknown) (unknown) 32wk5d. Trini (units (unknown) date) questions how to unknown) feel contractions, uncertain at times if (unknown) (no (unknown) (unknown) 34w 5d 219 lb (units ( unknown) date) unknown) (unknown) (no (unknown) (unknown) 36w 5d 223 lb (units ( unknown) date) unknown) (unknown) (no (unknown) (unknown) 37w 6d 225 lb (units ( unknown) date) unknown) (unknown) (no (unknown) (unknown) [id number] (units (unkno wn) date) unknown) (unknown) (no (unknown) (unknown) Abnormal Pap (units (u nknown) date) smear of cervix unknown) (-2013) (unknown) (no (unknown) (unknown) Abnormal lab (units (u nknown) date) values 1st unknown) trimester: discussed (unknown) (no (unknown) (unknown) Add'l Plan (units (unk nown) date) Details unknown) (unknown) (no (unknown) (unknown) Age/Sex: 27 / F (units (unknown) date) Date of Service: unknown) (unknown) (no (unknown) (unknown) Allergies (units (unkn own) date) unknown) (unknown) (no (unknown) (unknown) [place], [place] (units ( unknown) date) [id number] unknown) (unknown) (no (unknown) (unknown) Anesthesia (units (unk nown) date) unknown) (unknown) (no (unknown) (unknown) Aneuploidy (units (unk nown) date) Screening Offered: unknown) Declined (unknown) (no (unknown) (unknown) Anticipated (units (un known) date) course of unknown) care: discussed (unknown) (no (unknown) (unknown) Assessment and (units (unknown) date) Plan unknown) (unknown) (no (unknown) (unknown) Attending Dr: (units ( unknown) date) Kacy Palomo unknown) P.A-C (unknown) (no (unknown) (unknown) BMI 39.8 (units (unkno wn) date) unknown) (unknown) (no (unknown) (unknown) BP 116/68 (units (unkn own) date) unknown) (unknown) (no (unknown) (unknown) (units (unkno wn) date) Plan/Preferences unknown) (unknown) (no (unknown) (unknown) Planning (units (unknown) date) unknown) (unknown) (no (unknown) (unknown) Blood Pressure (units (unknown) date) Location Rt unknown) brachial (unknown) (no (unknown) (unknown) Blood (units (unkno wn) date) transfusions?: yes unknown) (never had but willing to accept) (unknown) (no (unknown) (unknown) Breastfeed Preg (units (unknown) date) Comp Name unknown) (unknown) (no (unknown) (unknown) Childbirth (units (unk nown) date) Classes: discussed unknown) (unknown) (no (unknown) (unknown) Current Estimate (units (unknown) date) 06/30/22 Manual unknown) 37w 6d IVF pregnan (unknown) (no (unknown) (unknown) Current (units (unknown) date) History unknown) (unknown) (no (unknown) (unknown) : 1995 (units (unknown) date) Acct:[id number] unknown) (unknown) (no (unknown) (unknown) Date of positive (units (unknown) date) home unknown) test: 10/16/21 (unknown) (no (unknown) (unknown) Date (units (unkno wn) date) unknown) (unknown) (no (unknown) (unknown) Del. Date (units (unkn own) date) GA/Weeks Labor unknown) Lgth Wt Sex Route Outcome Anesthesia Place (unknown) (no (unknown) (unknown) Delivery Date: (units (unknown) date) 02/17/19 Last unknown) Updated by: Juhi Hayes R.N. (unknown) (no (unknown) (unknown) Delv (units (unkno wn) date) unknown) (unknown) (no (unknown) (unknown) Denies Congenital (units (unknown) date) Heart Defect, unknown) Denies Down Syndrome, Denies Muscular Dystrophy, (unknown) (no (unknown) (unknown) Denies Maternal (units (unknown) date) Metabolic Disorder unknown) (EG,TYPE 1 Diabetes, PKU), Denies Patient or (unknown) (no (unknown) (unknown) Denies Neural (units ( unknown) date) Tube Defect unknown) (Meningomyelocele, Spina Bifida, or Anencephaly), D (unknown) (no (unknown) (unknown) Denies Sickle (units ( unknown) date) Cell Disease or unknown) Trait (), Denies Hemophilia or other blood (unknown) (no (unknown) (unknown) Denies other (units (u nknown) date) unknown) (unknown) (no (unknown) (unknown) Denies over the (units (unknown) date) counter unknown) medications, Denies alcohol, Denies illicit drugs and (unknown) (no (unknown) (unknown) Depression: (units (un known) date) discussed unknown) (unknown) (no (unknown) (unknown) Dept at (units (unkno wn) date) . 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), (unknown) (no (unknown) (unknown) Documented By: (units (unknown) date) Kacy Palomo unknown) P.A-C 06/15/22 1134 (unknown) (no (unknown) (unknown) LORY Calculator (units (unknown) date) unknown) (unknown) (no (unknown) (unknown) EGA Weight BP (units ( unknown) date) UGlucose unknown) (unknown) (no (unknown) (unknown) Encounter for in (units (unknown) date) vitro unknown) fertilization () (unknown) (no (unknown) (unknown) Estimated (units (unkn own) date) Delivery Date unknown) Method Current (unknown) (no (unknown) (unknown) Exercise and (units (u nknown) date) activity, unknown) work/environmental /hazards, Sexual activity, X-ray (unknown) (no (unknown) (unknown) Expected Delivery (units (unknown) date) Route/Plan unknown) (unknown) (no (unknown) (unknown) FM returns to a (units (unknown) date) lot of normal unknown) movement. On exam today, FM seen. Advised her, (unknown) (no (unknown) (unknown) Family History (units (unknown) date) (Updated 01/04/22 unknown) @ 23:06 by Paris Davalos) (unknown) (no (unknown) (unknown) Father of Baby: (units (unknown) date) [place] unknown) (unknown) (no (unknown) (unknown) [facility]) (unknown) (no (unknown) (unknown) First Trimester (units (unknown) date) Education unknown) Checklist (unknown) (no (unknown) (unknown) (units (unkno wn) date) unknown) (unknown) (no (unknown) (unknown) Genetic Screening (units (unknown) date) + Counseling unknown) (unknown) (no (unknown) (unknown) Genetic Screening (units (unknown) date) unknown) (unknown) (no (unknown) (unknown) Grandfather (units (un known) date) Diabetes mellitus unknown) (unknown) (no (unknown) (unknown) Grandmother (units (un known) date) Breast cancer unknown) (unknown) (no (unknown) (unknown) Grandmother (units (un known) date) Hypertension unknown) (unknown) (no (unknown) (unknown) 2 (units (unkn own) date) Multiple births unknown) (unknown) (no (unknown) (unknown) HIV risk (units (unkno wn) date) evaluation: low unknown) risk (unknown) (no (unknown) (unknown) Health Center (units ( unknown) date) Education unknown) (unknown) (no (unknown) (unknown) Health center (units ( unknown) date) information: unknown) nature of practice discussed, visit schedule (unknown) (no (unknown) (unknown) Height 5 ft 3 in (units (unknown) date) unknown) (unknown) (no (unknown) (unknown) Hepatitis C risk (units (unknown) date) evaluation: low unknown) risk (unknown) (no (unknown) (unknown) History of (units (unk nown) date) Hepatitis B: No unknown) (unknown) (no (unknown) (unknown) History of (units (unk nown) date) Hepatitis C: No unknown) (unknown) (no (unknown) (unknown) History of LEEP (units (unknown) date) procedure unknown) (unknown) (no (unknown) (unknown) 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) unknown) (unknown) (no (unknown) (unknown) Montague's (units (u nknown) date) Chorea, Denies unknown) Other inherited genetic or chromosomal disorder, (unknown) (no (unknown) (unknown) Hx # (units (u nknown) date) Pregnancies unknown) Elective abortions (unknown) (no (unknown) (unknown) Hx # Term (units (unkn own) date) Pregnancies unknown) Ectopic pregnancies (unknown) (no (unknown) (unknown) Hx of (units (unkno wn) date) tonsillectomy unknown) () (unknown) (no (unknown) (unknown) IVF for this (units (u nknown) date) , unknown) declined Echo 02/28/22 32 wk growth US 44%, f/u (unknown) (no (unknown) (unknown) Infection History (units (unknown) date) unknown) (unknown) (no (unknown) (unknown) Infection history (units (unknown) date) comments: needs unknown) flu + covid vaccines (unknown) (no (unknown) (unknown) Infectious (units (unk nown) date) Disease Education unknown) (unknown) (no (unknown) (unknown) Infectious (units (unk nown) date) disease exposure: unknown) chicken pox immunity discussed, tuberculosis (unknown) (no (unknown) (unknown) Infertility (units (un known) date) () unknown) (unknown) (no (unknown) (unknown) Initial Weight: (units (unknown) date) 180 lb unknown) (unknown) (no (unknown) (unknown) Initials (units (unkno wn) date) unknown) (unknown) (no (unknown) (unknown) Intake Clinical (units (unknown) date) Staff unknown) (unknown) (no (unknown) (unknown) Intake Note: (units (u nknown) date) unknown) (unknown) (no (unknown) (unknown) Intake performed (units (unknown) date) by: unknown) Elba Hopson (unknown) (no (unknown) (unknown) Intake (units (unkno wn) date) unknown) (unknown) (no (unknown) (unknown) Trini presents (units (unknown) date) today for routine unknown) OB visit at 37w6d. 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) () (unknown) (no (unknown) (unknown) Marital status: (units (unknown) date) unknown) (unknown) (no (unknown) (unknown) Medical History (units (unknown) date) (Updated 02/28/22 unknown) @ 08:37 by Lynne Campuzano MD) (unknown) (no (unknown) (unknown) Medications (units (un known) date) unknown) (unknown) (no (unknown) (unknown) Mother (units (unkno wn) date) Hypertension unknown) (unknown) (no (unknown) (unknown) N 140 15 4wk (units (u nknown) date) unknown) (unknown) (no (unknown) (unknown) N Yes 142 19 girl (units (unknown) date) 4wk unknown) (unknown) (no (unknown) (unknown) N Yes no 140 (units (u nknown) date) Vertex absent 2wk unknown) (unknown) (no (unknown) (unknown) N Yes no 143 22 (units (unknown) date) absent 4wk unknown) (unknown) (no (unknown) (unknown) N Yes no 144 27 (units (unknown) date) absent 4 wk unknown) (unknown) (no (unknown) (unknown) N Yes no 144 (units (u nknown) date) Vertex absent EFW unknown) 44%, GOMEZ 14 (unknown) (no (unknown) (unknown) N Yes no 145 30 (units (unknown) date) absent 4wk unknown) (unknown) (no (unknown) (unknown) N Yes no 148 37 (units (unknown) date) Vertex absent unknown) 0/long order (unknown) (no (unknown) (unknown) N Yes yes 144 38 (units (unknown) date) Vertex absent GBS unknown) negativ (unknown) (no (unknown) (unknown) NF (units (unkno wn) date) unknown) (unknown) (no (unknown) (unknown) No Known Drug (units ( unknown) date) Allergies Allergy unknown) (Unverified 06/15/22 11:35) (unknown) (no (unknown) (unknown) No vaginal (units (unk nown) date) bleeding. No unknown) change in vaginal discharge. No fevers. No vaginal (unknown) (no (unknown) (unknown) Notes (units (unkno wn) date) unknown) (unknown) (no (unknown) (unknown) Number of Living (units (unknown) date) Children unknown) (unknown) (no (unknown) (unknown) Number of (units (unkn own) date) fetuses:: Single unknown) (unknown) (no (unknown) (unknown) Nutrition and (units ( unknown) date) weight gain unknown) counseling: special diet: discussed (unknown) (no (unknown) (unknown) OB Office Visit (units (unknown) date) unknown) (unknown) (no (unknown) (unknown) OB Visit Log (units (u nknown) date) unknown) (unknown) (no (unknown) (unknown) On control (units (unknown) date) at conception?: No unknown) (IVF) (unknown) (no (unknown) (unknown) Other Estimates (units (unknown) date) 06/26/22 LMP unknown) (Certain) 38w 3d (unknown) (no (unknown) (unknown) PFSH (units (unkno wn) date) unknown) (unknown) (no (unknown) (unknown) Para 0 (units (unkno wn) date) Spontaneous unknown) abortions 1 (unknown) (no (unknown) (unknown) Partner history (units (unknown) date) of STD: denies hx unknown) (unknown) (no (unknown) (unknown) Partner history (units (unknown) date) of genital herpes: unknown) No (unknown) (no (unknown) (unknown) Partner: Bebeto (units (unknown) date) Gerda unknown) (unknown) (no (unknown) (unknown) Past Pregnancies (units (unknown) date) unknown) (unknown) (no (unknown) (unknown) Patient is (units (unk nown) date) feeling well. Some unknown) mild cramping. No bleeding. No fevers. (unknown) (no (unknown) (unknown) Patient is (units (unk nown) date) feeling well. Some unknown) pressure sensation but no other concerns. (unknown) (no (unknown) (unknown) Patient's age 35 (units (unknown) date) years or older as unknown) of estimated date of delivery: No (unknown) (no (unknown) (unknown) Patient: (units (unkno wn) date) Trini Lorenz unknown) MR#: [id number] (unknown) (no (unknown) (unknown) Personal history (units (unknown) date) of STD: HPV (2015) unknown) (unknown) (no (unknown) (unknown) Personal history (units (unknown) date) of genital herpes: unknown) No (unknown) (no (unknown) (unknown) Position Sitting (units (unknown) date) unknown) (unknown) (no (unknown) (unknown) History (units (unknown) date) unknown) (unknown) (no (unknown) (unknown) type:: (units (unknown) date) Other Normal unknown) (unknown) (no (unknown) (unknown) (units (unkno wn) date) Education unknown) (unknown) (no (unknown) (unknown) Initial (units (unknown) date) Assessment unknown) (unknown) (no (unknown) (unknown) Specific (units (unknown) date) Issues/Plans unknown) (unknown) (no (unknown) (unknown) Testing: (units (unknown) date) discussed unknown) (unknown) (no (unknown) (unknown) Visit (units (unknown) date) unknown) (unknown) (no (unknown) (unknown) (units (unkno wn) date) education packet: unknown) Child education/plan, symptoms, (unknown) (no (unknown) (unknown) Primary Care (units (u nknown) date) Provider: Britt unknown) Sharmaine (unknown) (no (unknown) (unknown) Primary Ob (units (unk nown) date) Provider: unknown) Lynne Campuzano (unknown) (no (unknown) (unknown) Prior (units (unkno wn) date) GBS-Infected unknown) child: No (unknown) (no (unknown) (unknown) Providers (units (unkn own) date) unknown) (unknown) (no (unknown) (unknown) Quad screen nml (units (unknown) date) unknown) (unknown) (no (unknown) (unknown) DANYELLE visit 34wk5d. (units (unknown) date) Feeling well. She unknown) reports sometimes a few days of (unknown) (no (unknown) (unknown) DANYELLE@30wk4d. She (units (unknown) date) denies any unknown) problems. She bought an abdominal binder and (unknown) (no (unknown) (unknown) Rash or viral (units ( unknown) date) illness since last unknown) menstrual period: No (unknown) (no (unknown) (unknown) Reason For Visit (units (unknown) date) unknown) (unknown) (no (unknown) (unknown) Recent travel (units ( unknown) date) outside of unknown) country?: No (unknown) (no (unknown) (unknown) Recurrent (units (unkn own) date) loss or unknown) a stillbirth: No (unknown) (no (unknown) (unknown) Routine (units (unkno wn) date) precautions and unknown) normal physiological changes of (unknown) (no (unknown) (unknown) Routine (units (unkno wn) date) precautions unknown) reviewed. (unknown) (no (unknown) (unknown) Rubella nonimmune (units (unknown) date) immunize unknown) (unknown) (no (unknown) (unknown) S/P LEEP (loop (units (unknown) date) electrosurgical unknown) excision procedure) () (unknown) (no (unknown) (unknown) Safety (units (unkno wn) date) unknown) (unknown) (no (unknown) (unknown) Signed By: (units (unk nown) date) <Electronically unknown) signed by Kacy Palomo> (unknown) (no (unknown) (unknown) Signed (units (unkno wn) date) unknown) (unknown) (no (unknown) (unknown) Smoking Status: (units (unknown) date) Never smoker unknown) (unknown) (no (unknown) (unknown) Smoking/Tobacco (units (unknown) date) use: discussed unknown) (unknown) (no (unknown) (unknown) Social History (units (unknown) date) unknown) (unknown) (no (unknown) (unknown) Surgical History (units (unknown) date) (Updated 01/04/22 unknown) @ 23:05 by Paris Davalos) (unknown) (no (unknown) (unknown) Symptoms since (units (unknown) date) LMP: Reports unknown) amenorrhea, nausea, fatigue, urinary frequency, (unknown) (no (unknown) (unknown) TR 174 11 4wk (units ( unknown) date) unknown) (unknown) (no (unknown) (unknown) Tdap status: (units (u nknown) date) immunized unknown) (unknown) (no (unknown) (unknown) Teratogen (units (unkn own) date) Exposures since unknown) LMP/Conception: Denies prescription medications, (unknown) (no (unknown) (unknown) Testing Education (units (unknown) date) unknown) (unknown) (no (unknown) (unknown) Testing education (units (unknown) date) completed: Genetic unknown) testing, group B strep and Cell Free DNA (unknown) (no (unknown) (unknown) This note may (units ( unknown) date) have been all or unknown) partially generated using voice recognition (unknown) (no (unknown) (unknown) Tobacco + (units (unkn own) date) Substance Use unknown) (unknown) (no (unknown) (unknown) Tobacco Status (units (unknown) date) unknown) (unknown) (no (unknown) (unknown) Type(s) of (units (unk nown) date) exercise: none unknown) (unknown) (no (unknown) (unknown) Typically feels (units (unknown) date) in the a.m.. Only unknown) feeling occasionally, nothing routinely. I (unknown) (no (unknown) (unknown) UProtein Movement (units (unknown) date) PreLabor FHR Fndl unknown) Ht Pres Edema Cerv Exam US/Comment Next Appt (unknown) (no (unknown) (unknown) Ultrasound (units (unk nown) date) Details:: Prior 7 unknown) week 3 day ultrasound at IVF on 11/15/21 clinic (unknown) (no (unknown) (unknown) Ultrasound (units (unk nown) date) unknown) (unknown) (no (unknown) (unknown) Vaginal (units (unkno wn) date) unknown) (unknown) (no (unknown) (unknown) Varicella/chicken (units (unknown) date) pox status: unknown) immunized and previous disease (mild case as (unknown) (no (unknown) (unknown) Visit Date: (units (un known) date) 12/08/21 Last unknown) Updated by: Carrie Pichardo MD (unknown) (no (unknown) (unknown) Visit Date: (units (un known) date) 01/05/22 Last unknown) Updated by: Carrie Pichardo MD (unknown) (no (unknown) (unknown) Visit Date: (units (un known) date) 02/02/22 Last unknown) Updated by: Carrie Pichardo MD (unknown) (no (unknown) (unknown) Visit Date: (units (un known) date) 02/28/22 Last unknown) Updated by: Lynne Campuzano MD (unknown) (no (unknown) (unknown) Visit Date: (units (un known) date) 03/28/22 Last unknown) Updated by: Lynne Campuzano MD (unknown) (no (unknown) (unknown) Visit Date: (units (un known) date) 04/25/22 Last unknown) Updated by: Lynne Campuzano MD (unknown) (no (unknown) (unknown) Visit Date: (units (un known) date) 05/10/22 Last unknown) Updated by: Lynne Campuzano MD (unknown) (no (unknown) (unknown) Visit Date: (units (un known) date) 05/24/22 Last unknown) Updated by: Lynne Campuzano MD (unknown) (no (unknown) (unknown) Visit Date: (units (un known) date) 06/07/22 Last unknown) Updated by: Lynne Campuzano MD (unknown) (no (unknown) (unknown) Visit Date: (units (un known) date) 06/15/22 Last unknown) Updated by: Kacy Palomo P.A-C (unknown) (no (unknown) (unknown) Visit Reasons: OB (units (unknown) date) check for Tatianna unknown) (unknown) (no (unknown) (unknown) Vitals (units (unkno wn) date) unknown) (unknown) (no (unknown) (unknown) Vitamins and (units (u nknown) date) iron, Diet and unknown) weight gain, Fish and mercury intake, Caffeine use, (unknown) (no (unknown) (unknown) WG (units (unkno wn) date) unknown) (unknown) (no (unknown) (unknown) Weight 225 lb (units ( unknown) date) unknown) (unknown) (no (unknown) (unknown) Millis teeth (units (u nknown) date) extracted () unknown) (unknown) (no (unknown) (unknown) Zika virus (units (unk nown) date) exposure: No unknown) (unknown) (no (unknown) (unknown) after she (units (unkn own) date) hydrates. No unknown) persistent cramping, ctx, LOF or VB. Discussed GBS (unknown) (no (unknown) (unknown) alcohol intake: (units (unknown) date) former unknown) (unknown) (no (unknown) (unknown) amh (units (unkno wn) date) unknown) (unknown) (no (unknown) (unknown) and office visits (units (unknown) date) unknown) (unknown) (no (unknown) (unknown) anyone in either (units (unknown) date) family with: unknown) (unknown) (no (unknown) (unknown) baby's father had (units (unknown) date) a child with unknown) defects not listed above and Denies Other (unknown) (no (unknown) (unknown) bleeding. She is (units (unknown) date) feeling baby move. unknown) Routine precautions reviewed. (unknown) (no (unknown) (unknown) caffeine: Yes (units ( unknown) date) (aware of 200mg unknown) daily limit) (unknown) (no (unknown) (unknown) carbon monox (units (u nknown) date) detector in home: unknown) Yes (unknown) (no (unknown) (unknown) child) (units (unkno wn) date) unknown) (unknown) (no (unknown) (unknown) concerns with (units ( unknown) date) COVID infection unknown) and and urged patient to consider (unknown) (no (unknown) (unknown) consistent with (units (unknown) date) dates. unknown) (unknown) (no (unknown) (unknown) cramping, vaginal (units (unknown) date) bleeding or unknown) leakage of fluid. Doing her Glucola today. (unknown) (no (unknown) (unknown) current (units (unkno wn) date) occupational unknown) exposures/hazards: No (unknown) (no (unknown) (unknown) cy (units (unkno wn) date) unknown) (unknown) (no (unknown) (unknown) cytotec (units (unkno wn) date) unknown) (unknown) (no (unknown) (unknown) daily servings (units (unknown) date) fruits/ve-4 unknown) (unknown) (no (unknown) (unknown) declined referral (units (unknown) date) for unknown) echocardiogram for IVF . (unknown) (no (unknown) (unknown) discussed (units (unkn own) date) increased fiber in unknown) diet. May use MiraLax. No uterine type cramping, (unknown) (no (unknown) (unknown) discussed with (units (unknown) date) the patient. unknown) Patient is not COVID vaccinated. Discussed (unknown) (no (unknown) (unknown) disorders, Denies (units (unknown) date) Cystic Fibrosis, unknown) Denies Mental Retardation/Autism , Denies (unknown) (no (unknown) (unknown) do you feel safe (units (unknown) date) at home: Yes unknown) (unknown) (no (unknown) (unknown) drops of urine, (units (unknown) date) does feel it is unknown) from the bladder. No vaginal leakage of fluid (unknown) (no (unknown) (unknown) during the past (units (unknown) date) year weight has: unknown) decreased > 10 lbs (lost 30 lbs) (unknown) (no (unknown) (unknown) e (units (unkno wn) date) unknown) (unknown) (no (unknown) (unknown) eating out: (units (un known) date) rarely or never unknown) (unknown) (no (unknown) (unknown) ed 1wk (units (unkno wn) date) unknown) (unknown) (no (unknown) (unknown) education level: (units (unknown) date) college unknown) (unknown) (no (unknown) (unknown) enies Epifanio-Sachs (units (unknown) date) (Ashkenazi Quaker, unknown) [place], [place]), Denies Nadja (unknown) (no (unknown) (unknown) exposure (units (unkno wn) date) discussed, CMV unknown) discussed, Toxoplasmosis precautions, Listeriosis (unknown) (no (unknown) (unknown) exposure, (units (unkn own) date) Medication use, unknown) Sauna/hot tub use, Dental care and Travel (unknown) (no (unknown) (unknown) feeling some less (units (unknown) date) movement, but she unknown) does kick counts and gets enough kicks, then (unknown) (no (unknown) (unknown) feeling some upper (units (unknown) date) discomfort when unknown) standing, but some muscle support tape to try (unknown) (no (unknown) (unknown) feels better with (units (unknown) date) using this when on unknown) her feet. Feeling good movement. No (unknown) (no (unknown) (unknown) movement (units (unknown) date) and denies VB, unknown) LOF. Growth US showed normal GOMEZ 18.6 and growth (unknown) (no (unknown) (unknown) movement (units (unknown) date) daily. GBS screen unknown) collected. She desired a cervical check. Will (unknown) (no (unknown) (unknown) fire extinguisher (units (unknown) date) in home: No unknown) (unknown) (no (unknown) (unknown) firearms in home: (units (unknown) date) No unknown) (unknown) (no (unknown) (unknown) frequency: does (units (unknown) date) not exercise unknown) (unknown) (no (unknown) (unknown) frequent, then to (units (unknown) date) call. Occasionally unknown) feeling vaginal pressure when she sits, (unknown) (no (unknown) (unknown) getting the (units (un known) date) vaccine in unknown) . (unknown) (no (unknown) (unknown) growth US ordered (units (unknown) date) @36wks unknown) (unknown) (no (unknown) (unknown) have occurred. If (units (unknown) date) there are any unknown) questions, please contact the Medical Records (unknown) (no (unknown) (unknown) having a girl (units ( unknown) date) unknown) (unknown) (no (unknown) (unknown) her in for NST. (units (unknown) date) Feels some cramps unknown) in the morning after wakening, then results (unknown) (no (unknown) (unknown) here. No other (units (unknown) date) problems. Feeling unknown) good movement. No contractions, (unknown) (no (unknown) (unknown) household (units (unkn own) date) members: spouse unknown) (unknown) (no (unknown) (unknown) housing: house (units (unknown) date) unknown) (unknown) (no (unknown) (unknown) if she does ever (units (unknown) date) feel significantly unknown) less, then definitely call and will bring (unknown) (no (unknown) (unknown) in the 56%. The (units (unknown) date) cervical canal was unknown) not well seen. She reports [place] Joy and (unknown) (no (unknown) (unknown) irritability, (units ( unknown) date) bloating and other unknown) (headaches + constipation) (unknown) (no (unknown) (unknown) leakage of fluid, (units (unknown) date) vaginal bleeding unknown) or abnormal vaginal discharge. Feeling (unknown) (no (unknown) (unknown) marital status: (units (unknown) date) unknown) (unknown) (no (unknown) (unknown) may occur. (units (unk nown) date) Occasional unknown) wrong-word or 'sound-alike' substitutions may have (unknown) (no (unknown) (unknown) medication (units (unk nown) date) options during unknown) labor. Tdap given today. (unknown) (no (unknown) (unknown) musculoskeletal (units (unknown) date) discomforts of unknown) , especially by the end of the day. No (unknown) (no (unknown) (unknown) needed. (units (unkno wn) date) unknown) (unknown) (no (unknown) (unknown) normal Glucola, (units (unknown) date) hemoglobin was unknown) 11.8. Questions answered regarding pain (unknown) (no (unknown) (unknown) noted cramping, (units (unknown) date) contractions, unknown) vaginal bleeding or leakage of fluid. She had a (unknown) (no (unknown) (unknown) nothing (units (unkno wn) date) persistent. unknown) Feeling good movement. Occasionally leaking few (unknown) (no (unknown) (unknown) number of (units (unkn own) date) children: 0 unknown) (unknown) (no (unknown) (unknown) occasional (units (unk nown) date) irregular stronger unknown) contractions, but nothing regular. Reviewed labor (unknown) (no (unknown) (unknown) occupational (units (u nknown) date) status: unemployed unknown) (unknown) (no (unknown) (unknown) occurred due to (units (unknown) date) the inherent unknown) limitations of voice recognition software. Please (unknown) (no (unknown) (unknown) or bleeding. No (units (unknown) date) persistent unknown) cramping. Ultrasound for EFW today due to IVF (unknown) (no (unknown) (unknown) other problems. (units (unknown) date) Overall sleeping unknown) well. She felt a little cramping which (unknown) (no (unknown) (unknown) other problems. (units (unknown) date) Tried 1 Colace unknown) daily without improvement. Discussed increase (unknown) (no (unknown) (unknown) pets and animals: (units (unknown) date) Yes (2 dogs) unknown) (unknown) (no (unknown) (unknown) . EFW 44 (units (unknown) date) percentile, 2022 unknown) g, 4 lb 7 oz. GOMEZ 14.6. (unknown) (no (unknown) (unknown) prenat.vits,emilia,m (units (unknown) date) [id number] 1 unknown) tab PO DAILY 11/27/21 [History Confirmed (unknown) (no (unknown) (unknown) prevention and (units (unknown) date) Rubella unknown) Immunization (unknown) (no (unknown) (unknown) pt here for ob (units (unknown) date) check unknown) (unknown) (no (unknown) (unknown) read the note (units ( unknown) date) carefully and unknown) recognize, using context, where these substitutions (unknown) (no (unknown) (unknown) recheck a growth (units (unknown) date) ultrasound, unknown) ordered, for IVF . (unknown) (no (unknown) (unknown) resolve, only has (units (unknown) date) felt an occasional unknown) contraction. No LOF or VB. Feeling good (unknown) (no (unknown) (unknown) reviewed had a (units (unknown) date) palpate for unknown) contractions, and if having every 10 minutes or more (unknown) (no (unknown) (unknown) reviewed, (units (unkn own) date) coverage 24 hours unknown) a day and participation of father in care (unknown) (no (unknown) (unknown) routine (units ( unknown) date) movement. She will unknown) do her Glucola/H/H next visit. Offered, (unknown) (no (unknown) (unknown) s/sx and when to (units (unknown) date) call. GBS was unknown) negative. No concerns. F/u in 1 week or as (unknown) (no (unknown) (unknown) screen next (units (un known) date) visit. unknown) (unknown) (no (unknown) (unknown) seatbelt use: (units ( unknown) date) always unknown) (unknown) (no (unknown) (unknown) second hand (units (un known) date) exposure: No unknown) (unknown) (no (unknown) (unknown) she is feeling (units ( unknown) date) Bc Joy or unknown) the baby, when feels tight in the upper abdomen. (unknown) (no (unknown) (unknown) software. 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 After (units (unknown) date) review, may need unknown) to increase water intake recently, and (unknown) (no (unknown) (unknown) to use as an (units (u nknown) date) abdominal binder. unknown) Will try to fit her for an abdominal binder (unknown) (no (unknown) (unknown) travel history: (units (unknown) date) recent ([place] unknown) 12/2020) (unknown) (no (unknown) (unknown) water heater temp (units (unknown) date) set < 120 deg: No unknown) (unsure) (unknown) (no (unknown) (unknown) well-balanced (units ( unknown) date) diet: about half unknown) the time (unknown) (no (unknown) (unknown) working smoke (units ( unknown) date) detector in home: unknown) Yes Result panel 338 (unknown) (no (unknown) (unknown) (no value) (units (unk nown) date) unknown) (unknown) (no (unknown) (unknown) (+18 lb) 102/68 N (units (unknown) date) unknown) (unknown) (no (unknown) (unknown) (+26 lb) 128/72 N (units (unknown) date) unknown) (unknown) (no (unknown) (unknown) (+3 lb) 110/70 N (units (unknown) date) unknown) (unknown) (no (unknown) (unknown) (+32 lb) 110/72 1 (units (unknown) date) unknown) (unknown) (no (unknown) (unknown) (+36 lb) 114/64 N (units (unknown) date) unknown) (unknown) (no (unknown) (unknown) (+39 lb) 104/70 (units (unknown) date) TR unknown) (unknown) (no (unknown) (unknown) (+43 lb) 122/68 (units (unknown) date) TR unknown) (unknown) (no (unknown) (unknown) (+45 lb) 116/68 (units (unknown) date) TR unknown) (unknown) (no (unknown) (unknown) (+6 lb) 104/66 TR (units (unknown) date) unknown) (unknown) (no (unknown) (unknown) (+9 lb) 108/78 N (units (unknown) date) unknown) (unknown) (no (unknown) (unknown) Genetic (units (unkn own) date) Screening/Teratolo unknown) gy Counseling - Includes patient, baby's father, or (unknown) (no (unknown) (unknown) -?-?-?-?-?-?-?-?- (units (unknown) date) ?-?-?-? unknown) (unknown) (no (unknown) (unknown) 02 (units (unkno wn) date) unknown) (unknown) (no (unknown) (unknown) 12/08/2021 (units (unk nown) date) Caceres viable unknown) intrauterine gestation size equal to dates (unknown) (no (unknown) (unknown) 12/08/21 (units (unkno wn) date) unknown) (unknown) (no (unknown) (unknown) 01/05/22 (units (unkno wn) date) unknown) (unknown) (no (unknown) (unknown) 02/02/22 (units (unkno wn) date) unknown) (unknown) (no (unknown) (unknown) 02/17/19 8 (units (unk nown) date) spontaneous unknown) (unknown) (no (unknown) (unknown) 02/28/22 (units (unkno wn) date) unknown) (unknown) (no (unknown) (unknown) 03/28/22 (units (unkno wn) date) unknown) (unknown) (no (unknown) (unknown) 08:02 (units (unkno wn) date) unknown) (unknown) (no (unknown) (unknown) 04/25/22 (units (unkno wn) date) unknown) (unknown) (no (unknown) (unknown) 05/10/22 (units (unkno wn) date) unknown) (unknown) (no (unknown) (unknown) 05/24/22 (units (unkno wn) date) unknown) (unknown) (no (unknown) (unknown) 06/07/22 (units (unkno wn) date) unknown) (unknown) (no (unknown) (unknown) 06/15/22 (units (unkno wn) date) unknown) (unknown) (no (unknown) (unknown) 10w 6d 183 lb (units ( unknown) date) unknown) (unknown) (no (unknown) (unknown) 06/21/22 (units (unkno wn) date) unknown) (unknown) (no (unknown) (unknown) 07/01/22 (units (unkno wn) date) Ultrasound #1 38w unknown) 4d (unknown) (no (unknown) (unknown) 14w 6d 186 lb (units ( unknown) date) unknown) (unknown) (no (unknown) (unknown) 18w 6d 189 lb (units ( unknown) date) unknown) (unknown) (no (unknown) (unknown) 22w 4d 198 lb (units ( unknown) date) unknown) (unknown) (no (unknown) (unknown) 26w 4d 206 lb (units ( unknown) date) unknown) (unknown) (no (unknown) (unknown) 26wk4d. Pt with (units (unknown) date) some abdominal unknown) musculoskeletal discomfort, lower and (unknown) (no (unknown) (unknown) [id number], IVF (units ( unknown) date) , at unknown) 22wks here for DANYELLE visit. Constipation, no (unknown) (no (unknown) (unknown) 27yo (units (unkn own) date) presents for DANYELLE unknown) visit @ 36wk5d. She reports some normal (unknown) (no (unknown) (unknown) 2wk (units (unkno wn) date) unknown) (unknown) (no (unknown) (unknown) 30w 4d 212 lb (units ( unknown) date) unknown) (unknown) (no (unknown) (unknown) 32w 5d 216 lb (units ( unknown) date) unknown) (unknown) (no (unknown) (unknown) 32wk5d. Trini (units (unknown) date) questions how to unknown) feel contractions, uncertain at times if (unknown) (no (unknown) (unknown) 34w 5d 219 lb (units ( unknown) date) unknown) (unknown) (no (unknown) (unknown) 36w 5d 223 lb (units ( unknown) date) unknown) (unknown) (no (unknown) (unknown) 37w 6d 225 lb (units ( unknown) date) unknown) (unknown) (no (unknown) (unknown) [id number] (units (unkno wn) date) unknown) (unknown) (no (unknown) (unknown) Abnormal Pap (units (u nknown) date) smear of cervix unknown) (-2013) (unknown) (no (unknown) (unknown) Abnormal lab (units (u nknown) date) values 1st unknown) trimester: discussed (unknown) (no (unknown) (unknown) Add'l Plan (units (unk nown) date) Details unknown) (unknown) (no (unknown) (unknown) Age/Sex: 27 / F (units (unknown) date) Date of Service: unknown) (unknown) (no (unknown) (unknown) Allergies (units (unkn own) date) unknown) (unknown) (no (unknown) (unknown) [place], [place] (units ( unknown) date) [id number] unknown) (unknown) (no (unknown) (unknown) Anesthesia (units (unk nown) date) unknown) (unknown) (no (unknown) (unknown) Aneuploidy (units (unk nown) date) Screening Offered: unknown) Declined (unknown) (no (unknown) (unknown) Anticipated (units (un known) date) course of unknown) care: discussed (unknown) (no (unknown) (unknown) Assessment and (units (unknown) date) Plan unknown) (unknown) (no (unknown) (unknown) Attending Dr: Lynne (units (unknown) date) Sirisha Campuzano MD unknown) (unknown) (no (unknown) (unknown) BMI 40.1 (units (unkno wn) date) unknown) (unknown) (no (unknown) (unknown) BP 122/72 (units (unkn own) date) unknown) (unknown) (no (unknown) (unknown) (units (unkno wn) date) Plan/Preferences unknown) (unknown) (no (unknown) (unknown) Planning (units (unknown) date) unknown) (unknown) (no (unknown) (unknown) Blood Pressure (units (unknown) date) Location Lt unknown) brachial (unknown) (no (unknown) (unknown) Blood (units (unkno wn) date) transfusions?: yes unknown) (never had but willing to accept) (unknown) (no (unknown) (unknown) Breastfeed Preg (units (unknown) date) Comp Name unknown) (unknown) (no (unknown) (unknown) Childbirth (units (unk nown) date) Classes: discussed unknown) (unknown) (no (unknown) (unknown) Current Estimate (units (unknown) date) 06/30/22 Manual unknown) 38w 5d IVF pregnan (unknown) (no (unknown) (unknown) Current (units (unknown) date) History unknown) (unknown) (no (unknown) (unknown) : 1995 (units (unknown) date) Acct:[id number] unknown) (unknown) (no (unknown) (unknown) Date of positive (units (unknown) date) home unknown) test: 10/16/21 (unknown) (no (unknown) (unknown) Date (units (unkno wn) date) unknown) (unknown) (no (unknown) (unknown) Del. Date (units (unkn own) date) GA/Weeks Labor unknown) Lgth Wt Sex Route Outcome Anesthesia Place (unknown) (no (unknown) (unknown) Delivery Date: (units (unknown) date) 02/17/19 Last unknown) Updated by: Jhui Hayes R.N. (unknown) (no (unknown) (unknown) Delv (units (unkno wn) date) unknown) (unknown) (no (unknown) (unknown) Denies Congenital (units (unknown) date) Heart Defect, unknown) Denies Down Syndrome, Denies Muscular Dystrophy, (unknown) (no (unknown) (unknown) Denies Maternal (units (unknown) date) Metabolic Disorder unknown) (EG,TYPE 1 Diabetes, PKU), Denies Patient or (unknown) (no (unknown) (unknown) Denies Neural (units ( unknown) date) Tube Defect unknown) (Meningomyelocele, Spina Bifida, or Anencephaly), D (unknown) (no (unknown) (unknown) Denies Sickle (units ( unknown) date) Cell Disease or unknown) Trait (), Denies Hemophilia or other blood (unknown) (no (unknown) (unknown) Denies other (units (u nknown) date) unknown) (unknown) (no (unknown) (unknown) Denies over the (units (unknown) date) counter unknown) medications, Denies alcohol, Denies illicit drugs and (unknown) (no (unknown) (unknown) Depression: (units (un known) date) discussed unknown) (unknown) (no (unknown) (unknown) Dept at (units (unkno wn) date) . 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), (unknown) (no (unknown) (unknown) Documented By: (units (unknown) date) Lynne Campuzano unknown) 06/21/22 08 (unknown) (no (unknown) (unknown) Draft (units (unkno wn) date) unknown) (unknown) (no (unknown) (unknown) LORY Calculator (units (unknown) date) unknown) (unknown) (no (unknown) (unknown) EGA Weight BP (units ( unknown) date) UGlucose unknown) (unknown) (no (unknown) (unknown) Encounter for in (units (unknown) date) vitro unknown) fertilization () (unknown) (no (unknown) (unknown) Estimated (units (unkn own) date) Delivery Date unknown) Method Current (unknown) (no (unknown) (unknown) Exercise and (units (u nknown) date) activity, unknown) work/environmental /hazards, Sexual activity, X-ray (unknown) (no (unknown) (unknown) Expected Delivery (units (unknown) date) Route/Plan unknown) (unknown) (no (unknown) (unknown) FM returns to a (units (unknown) date) lot of normal unknown) movement. On exam today, FM seen. Advised her, (unknown) (no (unknown) (unknown) Family History (units (unknown) date) (Updated 01/04/22 unknown) @ 23:06 by Paris Davalos) (unknown) (no (unknown) (unknown) Father of Baby: (units (unknown) date) [place] unknown) (unknown) (no (unknown) (unknown) [facility] ([facility] unknown) (unknown) (no (unknown) (unknown) First Trimester (units (unknown) date) Education unknown) Checklist (unknown) (no (unknown) (unknown) (units (unkno wn) date) unknown) (unknown) (no (unknown) (unknown) Genetic Screening (units (unknown) date) + Counseling unknown) (unknown) (no (unknown) (unknown) Genetic Screening (units (unknown) date) unknown) (unknown) (no (unknown) (unknown) Grandfather (units (un known) date) Diabetes mellitus unknown) (unknown) (no (unknown) (unknown) Grandmother (units (un known) date) Breast cancer unknown) (unknown) (no (unknown) (unknown) Grandmother (units (un known) date) Hypertension unknown) (unknown) (no (unknown) (unknown) 2 (units (unkn own) date) Multiple births unknown) (unknown) (no (unknown) (unknown) HIV risk (units (unkno wn) date) evaluation: low unknown) risk (unknown) (no (unknown) (unknown) Health Center (units ( unknown) date) Education unknown) (unknown) (no (unknown) (unknown) Health center (units ( unknown) date) information: unknown) nature of practice discussed, visit schedule (unknown) (no (unknown) (unknown) Height 5 ft 3 in (units (unknown) date) unknown) (unknown) (no (unknown) (unknown) Hepatitis C risk (units (unknown) date) evaluation: low unknown) risk (unknown) (no (unknown) (unknown) History of (units (unk nown) date) Hepatitis B: No unknown) (unknown) (no (unknown) (unknown) History of (units (unk nown) date) Hepatitis C: No unknown) (unknown) (no (unknown) (unknown) History of LEEP (units (unknown) date) procedure unknown) (unknown) (no (unknown) (unknown) 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) unknown) (unknown) (no (unknown) (unknown) Montague's (units (u nknown) date) Chorea, Denies unknown) Other inherited genetic or chromosomal disorder, (unknown) (no (unknown) (unknown) Hx # (units (u nknown) date) Pregnancies unknown) Elective abortions (unknown) (no (unknown) (unknown) Hx # Term (units (unkn own) date) Pregnancies unknown) Ectopic pregnancies (unknown) (no (unknown) (unknown) Hx of (units (unkno wn) date) tonsillectomy unknown) (-2009) (unknown) (no (unknown) (unknown) IVF for this (units (u nknown) date) , unknown) declined Echo 02/28/22 32 wk growth US 44%, f/u (unknown) (no (unknown) (unknown) Infection History (units (unknown) date) unknown) (unknown) (no (unknown) (unknown) Infection history (units (unknown) date) comments: needs unknown) flu + covid vaccines (unknown) (no (unknown) (unknown) Infectious (units (unk nown) date) Disease Education unknown) (unknown) (no (unknown) (unknown) Infectious (units (unk nown) date) disease exposure: unknown) chicken pox immunity discussed, tuberculosis (unknown) (no (unknown) (unknown) 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) unknown) (unknown) (no (unknown) (unknown) Initial Weight: (units (unknown) date) 180 lb unknown) (unknown) (no (unknown) (unknown) Initials (units (unkno wn) date) unknown) (unknown) (no (unknown) (unknown) Intake Clinical (units (unknown) date) Staff unknown) (unknown) (no (unknown) (unknown) Intake Note: (units (u nknown) date) unknown) (unknown) (no (unknown) (unknown) Intake performed (units (unknown) date) by: Tricia Adan unknown) (unknown) (no (unknown) (unknown) Intake (units (unkno wn) date) unknown) (unknown) (no (unknown) (unknown) Trini presents (units (unknown) date) today for routine unknown) OB visit at 37w6d. 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) (-2011) (unknown) (no (unknown) (unknown) Marital status: (units (unknown) date) unknown) (unknown) (no (unknown) (unknown) Medical History (units (unknown) date) (Updated 02/28/22 unknown) @ 08:37 by Lynne Campuzano MD) (unknown) (no (unknown) (unknown) Mother (units (unkno wn) date) Hypertension unknown) (unknown) (no (unknown) (unknown) N 140 15 4wk (units (u nknown) date) unknown) (unknown) (no (unknown) (unknown) N Yes 142 19 girl (units (unknown) date) 4wk unknown) (unknown) (no (unknown) (unknown) N Yes no 140 (units (u nknown) date) Vertex absent 2wk unknown) (unknown) (no (unknown) (unknown) N Yes no 143 22 (units (unknown) date) absent 4wk unknown) (unknown) (no (unknown) (unknown) N Yes no 144 27 (units (unknown) date) absent 4 wk unknown) (unknown) (no (unknown) (unknown) N Yes no 144 (units (u nknown) date) Vertex absent EFW unknown) 44%, GOMEZ 14 (unknown) (no (unknown) (unknown) N Yes no 145 30 (units (unknown) date) absent 4wk unknown) (unknown) (no (unknown) (unknown) N Yes no 148 37 (units (unknown) date) Vertex absent unknown) 0/long order (unknown) (no (unknown) (unknown) N Yes yes 144 38 (units (unknown) date) Vertex absent GBS unknown) negativ (unknown) (no (unknown) (unknown) NF (units (unkno wn) date) unknown) (unknown) (no (unknown) (unknown) No Known Drug (units ( unknown) date) Allergies Allergy unknown) (Unverified 06/15/22 11:35) (unknown) (no (unknown) (unknown) No vaginal (units (unk nown) date) bleeding. No unknown) change in vaginal discharge. No fevers. No vaginal (unknown) (no (unknown) (unknown) Notes (units (unkno wn) date) unknown) (unknown) (no (unknown) (unknown) Number of Living (units (unknown) date) Children unknown) (unknown) (no (unknown) (unknown) Number of (units (unkn own) date) fetuses:: Single unknown) (unknown) (no (unknown) (unknown) Nutrition and (units ( unknown) date) weight gain unknown) counseling: special diet: discussed (unknown) (no (unknown) (unknown) OB Office Visit (units (unknown) date) unknown) (unknown) (no (unknown) (unknown) OB Visit Log (units (u nknown) date) unknown) (unknown) (no (unknown) (unknown) On control (units (unknown) date) at conception?: No unknown) (IVF) (unknown) (no (unknown) (unknown) Other Estimates (units (unknown) date) 06/26/22 LMP unknown) (Certain) 39w 2d (unknown) (no (unknown) (unknown) PFSH (units (unkno wn) date) unknown) (unknown) (no (unknown) (unknown) Para 0 (units (unkno wn) date) Spontaneous unknown) abortions 1 (unknown) (no (unknown) (unknown) Partner history (units (unknown) date) of STD: denies hx unknown) (unknown) (no (unknown) (unknown) Partner history (units (unknown) date) of genital herpes: unknown) No (unknown) (no (unknown) (unknown) Partner: [place] (units (unknown) date) [place] unknown) (unknown) (no (unknown) (unknown) Past Pregnancies (units (unknown) date) unknown) (unknown) (no (unknown) (unknown) Patient is (units (unk nown) date) feeling well. Some unknown) mild cramping. No bleeding. No fevers. (unknown) (no (unknown) (unknown) Patient is (units (unk nown) date) feeling well. Some unknown) pressure sensation but no other concerns. (unknown) (no (unknown) (unknown) Patient's age 35 (units (unknown) date) years or older as unknown) of estimated date of delivery: No (unknown) (no (unknown) (unknown) Patient: (units (unkno wn) date) Trini Lorenz unknown) MR#: [id number] (unknown) (no (unknown) (unknown) Personal history (units (unknown) date) of STD: HPV (2015) unknown) (unknown) (no (unknown) (unknown) Personal history (units (unknown) date) of genital herpes: unknown) No (unknown) (no (unknown) (unknown) Position Sitting (units (unknown) date) unknown) (unknown) (no (unknown) (unknown) History (units (unknown) date) unknown) (unknown) (no (unknown) (unknown) type:: (units (unknown) date) Other Normal unknown) (unknown) (no (unknown) (unknown) (units (unkno wn) date) Education unknown) (unknown) (no (unknown) (unknown) Initial (units (unknown) date) Assessment unknown) (unknown) (no (unknown) (unknown) Specific (units (unknown) date) Issues/Plans unknown) (unknown) (no (unknown) (unknown) Testing: (units (unknown) date) discussed unknown) (unknown) (no (unknown) (unknown) Visit (units (unknown) date) unknown) (unknown) (no (unknown) (unknown) (units (unkno wn) date) education packet: unknown) Child education/plan, symptoms, (unknown) (no (unknown) (unknown) Primary Care (units (u nknown) date) Provider: Britt unknown) Sharmaine (unknown) (no (unknown) (unknown) Primary Ob (units (unk nown) date) Provider: unknown) Lynne Campuzano (unknown) (no (unknown) (unknown) Prior (units (unkno wn) date) GBS-Infected unknown) child: No (unknown) (no (unknown) (unknown) Providers (units (unkn own) date) unknown) (unknown) (no (unknown) (unknown) Pt here for OB (units (unknown) date) Check unknown) (unknown) (no (unknown) (unknown) Quad screen nml (units (unknown) date) unknown) (unknown) (no (unknown) (unknown) DANYELLE visit 34wk5d. (units (unknown) date) Feeling well. She unknown) reports sometimes a few days of (unknown) (no (unknown) (unknown) DANYELLE@30wk4d. She (units (unknown) date) denies any unknown) problems. She bought an abdominal binder and (unknown) (no (unknown) (unknown) Rash or viral (units ( unknown) date) illness since last unknown) menstrual period: No (unknown) (no (unknown) (unknown) Reason For Visit (units (unknown) date) unknown) (unknown) (no (unknown) (unknown) Recent travel (units ( unknown) date) outside of unknown) country?: No (unknown) (no (unknown) (unknown) Recurrent (units (unkn own) date) loss or unknown) a stillbirth: No (unknown) (no (unknown) (unknown) Routine (units (unkno wn) date) precautions and unknown) normal physiological changes of (unknown) (no (unknown) (unknown) Routine (units (unkno wn) date) precautions unknown) reviewed. (unknown) (no (unknown) (unknown) Rubella nonimmune (units (unknown) date) immunize unknown) (unknown) (no (unknown) (unknown) S/P LEEP (loop (units (unknown) date) electrosurgical unknown) excision procedure) () (unknown) (no (unknown) (unknown) Safety (units (unkno wn) date) unknown) (unknown) (no (unknown) (unknown) Signed By: (units (unk nown) date) unknown) (unknown) (no (unknown) (unknown) Smoking Status: (units (unknown) date) Never smoker unknown) (unknown) (no (unknown) (unknown) Smoking/Tobacco (units (unknown) date) use: discussed unknown) (unknown) (no (unknown) (unknown) Social History (units (unknown) date) unknown) (unknown) (no (unknown) (unknown) Surgical History (units (unknown) date) (Updated 01/04/22 unknown) @ 23:05 by Paris Davalos) (unknown) (no (unknown) (unknown) Symptoms since (units (unknown) date) LMP: Reports unknown) amenorrhea, nausea, fatigue, urinary frequency, (unknown) (no (unknown) (unknown) TR 174 11 4wk (units ( unknown) date) unknown) (unknown) (no (unknown) (unknown) Tdap status: (units (u nknown) date) immunized unknown) (unknown) (no (unknown) (unknown) Teratogen (units (unkn own) date) Exposures since unknown) LMP/Conception: Denies prescription medications, (unknown) (no (unknown) (unknown) Testing Education (units (unknown) date) unknown) (unknown) (no (unknown) (unknown) Testing education (units (unknown) date) completed: Genetic unknown) testing, group B strep and Cell Free DNA (unknown) (no (unknown) (unknown) This note may (units ( unknown) date) have been all or unknown) partially generated using voice recognition (unknown) (no (unknown) (unknown) Tobacco + (units (unkn own) date) Substance Use unknown) (unknown) (no (unknown) (unknown) Tobacco Status (units (unknown) date) unknown) (unknown) (no (unknown) (unknown) Trimester:: 3rd (units (unknown) date) Trimester unknown) (28wks-Del) (unknown) (no (unknown) (unknown) Type(s) of (units (unk nown) date) exercise: none unknown) (unknown) (no (unknown) (unknown) Typically feels (units (unknown) date) in the a.m.. Only unknown) feeling occasionally, nothing routinely. I (unknown) (no (unknown) (unknown) UProtein Movement (units (unknown) date) PreLabor FHR Fndl unknown) Ht Pres Edema Cerv Exam US/Comment Next Appt (unknown) (no (unknown) (unknown) Ultrasound (units (unk nown) date) Details:: Prior 7 unknown) week 3 day ultrasound at IVF on 11/15/21 clinic (unknown) (no (unknown) (unknown) Ultrasound (units (unk nown) date) unknown) (unknown) (no (unknown) (unknown) Vaginal (units (unkno wn) date) unknown) (unknown) (no (unknown) (unknown) Varicella/chicken (units (unknown) date) pox status: unknown) immunized and previous disease (mild case as (unknown) (no (unknown) (unknown) Visit Date: (units (un known) date) 12/08/21 Last unknown) Updated by: Carrie Pichardo MD (unknown) (no (unknown) (unknown) Visit Date: (units (un known) date) 01/05/22 Last unknown) Updated by: Carrie Pichardo MD (unknown) (no (unknown) (unknown) Visit Date: (units (un known) date) 02/02/22 Last unknown) Updated by: Carrie Pichardo MD (unknown) (no (unknown) (unknown) Visit Date: (units (un known) date) 02/28/22 Last unknown) Updated by: Lynne Campuzano MD (unknown) (no (unknown) (unknown) Visit Date: (units (un known) date) 03/28/22 Last unknown) Updated by: Lynne Campuzano MD (unknown) (no (unknown) (unknown) Visit Date: (units (un known) date) 04/25/22 Last unknown) Updated by: Lynne Campuzano MD (unknown) (no (unknown) (unknown) Visit Date: (units (un known) date) 05/10/22 Last unknown) Updated by: Lynne Campuzano MD (unknown) (no (unknown) (unknown) Visit Date: (units (un known) date) 05/24/22 Last unknown) Updated by: Lynne Campuzano MD (unknown) (no (unknown) (unknown) Visit Date: (units (un known) date) 06/07/22 Last unknown) Updated by: Lynne Campuzano MD (unknown) (no (unknown) (unknown) Visit Date: (units (un known) date) 06/15/22 Last unknown) Updated by: Kacy Palomo P.A-C (unknown) (no (unknown) (unknown) Visit Reasons: OB (units (unknown) date) check unknown) (unknown) (no (unknown) (unknown) Vitals (units (unkno wn) date) unknown) (unknown) (no (unknown) (unknown) Vitamins and (units (u nknown) date) iron, Diet and unknown) weight gain, Fish and mercury intake, Caffeine use, (unknown) (no (unknown) (unknown) WG (units (unkno wn) date) unknown) (unknown) (no (unknown) (unknown) Weeks gestation:: (units (unknown) date) 38 unknown) (unknown) (no (unknown) (unknown) Weight 227 lb (units ( unknown) date) unknown) (unknown) (no (unknown) (unknown) Millis teeth (units (u nknown) date) extracted () unknown) (unknown) (no (unknown) (unknown) Zika virus (units (unk nown) date) exposure: No unknown) (unknown) (no (unknown) (unknown) after she (units (unkn own) date) hydrates. No unknown) persistent cramping, ctx, LOF or VB. Discussed GBS (unknown) (no (unknown) (unknown) alcohol intake: (units (unknown) date) former unknown) (unknown) (no (unknown) (unknown) amh (units (unkno wn) date) unknown) (unknown) (no (unknown) (unknown) and office visits (units (unknown) date) unknown) (unknown) (no (unknown) (unknown) anyone in either (units (unknown) date) family with: unknown) (unknown) (no (unknown) (unknown) baby's father had (units (unknown) date) a child with unknown) defects not listed above and Denies Other (unknown) (no (unknown) (unknown) bleeding. She is (units (unknown) date) feeling baby move. unknown) Routine precautions reviewed. (unknown) (no (unknown) (unknown) caffeine: Yes (units ( unknown) date) (aware of 200mg unknown) daily limit) (unknown) (no (unknown) (unknown) carbon monox (units (u nknown) date) detector in home: unknown) Yes (unknown) (no (unknown) (unknown) child) (units (unkno wn) date) unknown) (unknown) (no (unknown) (unknown) concerns with (units ( unknown) date) COVID infection unknown) and and urged patient to consider (unknown) (no (unknown) (unknown) consistent with (units (unknown) date) dates. unknown) (unknown) (no (unknown) (unknown) cramping, vaginal (units (unknown) date) bleeding or unknown) leakage of fluid. Doing her Glucola today. (unknown) (no (unknown) (unknown) current (units (unkno wn) date) occupational unknown) exposures/hazards: No (unknown) (no (unknown) (unknown) cy (units (unkno wn) date) unknown) (unknown) (no (unknown) (unknown) cytotec (units (unkno wn) date) unknown) (unknown) (no (unknown) (unknown) daily servings (units (unknown) date) fruits/ve-4 unknown) (unknown) (no (unknown) (unknown) declined referral (units (unknown) date) for unknown) echocardiogram for IVF . (unknown) (no (unknown) (unknown) discussed (units (unkn own) date) increased fiber in unknown) diet. May use MiraLax. No uterine type cramping, (unknown) (no (unknown) (unknown) discussed with (units (unknown) date) the patient. unknown) Patient is not COVID vaccinated. Discussed (unknown) (no (unknown) (unknown) disorders, Denies (units (unknown) date) Cystic Fibrosis, unknown) Denies Mental Retardation/Autism , Denies (unknown) (no (unknown) (unknown) do you feel safe (units (unknown) date) at home: Yes unknown) (unknown) (no (unknown) (unknown) drops of urine, (units (unknown) date) does feel it is unknown) from the bladder. No vaginal leakage of fluid (unknown) (no (unknown) (unknown) during the past (units (unknown) date) year weight has: unknown) decreased > 10 lbs (lost 30 lbs) (unknown) (no (unknown) (unknown) e (units (unkno wn) date) unknown) (unknown) (no (unknown) (unknown) eating out: (units (un known) date) rarely or never unknown) (unknown) (no (unknown) (unknown) ed 1wk (units (unkno wn) date) unknown) (unknown) (no (unknown) (unknown) education level: (units (unknown) date) college unknown) (unknown) (no (unknown) (unknown) enies Epifanio-Sachs (units (unknown) date) (Ashkenazi Quaker, unknown) [place], [place]), Denies Nadja (unknown) (no (unknown) (unknown) exposure (units (unkno wn) date) discussed, CMV unknown) discussed, Toxoplasmosis precautions, Listeriosis (unknown) (no (unknown) (unknown) exposure, (units (unkn own) date) Medication use, unknown) Sauna/hot tub use, Dental care and Travel (unknown) (no (unknown) (unknown) feeling some less (units (unknown) date) movement, but she unknown) does kick counts and gets enough kicks, then (unknown) (no (unknown) (unknown) feeling some upper (units (unknown) date) discomfort when unknown) standing, but some muscle support tape to try (unknown) (no (unknown) (unknown) feels better with (units (unknown) date) using this when on unknown) her feet. Feeling good movement. No (unknown) (no (unknown) (unknown) movement (units (unknown) date) and denies VB, unknown) LOF. Growth US showed normal GOMEZ 18.6 and growth (unknown) (no (unknown) (unknown) movement (units (unknown) date) daily. GBS screen unknown) collected. She desired a cervical check. Will (unknown) (no (unknown) (unknown) fire extinguisher (units (unknown) date) in home: No unknown) (unknown) (no (unknown) (unknown) firearms in home: (units (unknown) date) No unknown) (unknown) (no (unknown) (unknown) frequency: does (units (unknown) date) not exercise unknown) (unknown) (no (unknown) (unknown) frequent, then to (units (unknown) date) call. Occasionally unknown) feeling vaginal pressure when she sits, (unknown) (no (unknown) (unknown) getting the (units (un known) date) vaccine in unknown) . (unknown) (no (unknown) (unknown) growth US ordered (units (unknown) date) @36wks unknown) (unknown) (no (unknown) (unknown) have occurred. If (units (unknown) date) there are any unknown) questions, please contact the Medical Records (unknown) (no (unknown) (unknown) having a girl (units ( unknown) date) unknown) (unknown) (no (unknown) (unknown) her in for NST. (units (unknown) date) Feels some cramps unknown) in the morning after wakening, then results (unknown) (no (unknown) (unknown) here. No other (units (unknown) date) problems. Feeling unknown) good movement. No contractions, (unknown) (no (unknown) (unknown) household (units (unkn own) date) members: spouse unknown) (unknown) (no (unknown) (unknown) housing: house (units (unknown) date) unknown) (unknown) (no (unknown) (unknown) if she does ever (units (unknown) date) feel significantly unknown) less, then definitely call and will bring (unknown) (no (unknown) (unknown) in the 56%. The (units (unknown) date) cervical canal was unknown) not well seen. She reports Bc Joy and (unknown) (no (unknown) (unknown) irritability, (units ( unknown) date) bloating and other unknown) (headaches + constipation) (unknown) (no (unknown) (unknown) leakage of fluid, (units (unknown) date) vaginal bleeding unknown) or abnormal vaginal discharge. Feeling (unknown) (no (unknown) (unknown) marital status: (units (unknown) date) unknown) (unknown) (no (unknown) (unknown) may occur. (units (unk nown) date) Occasional unknown) wrong-word or 'sound-alike' substitutions may have (unknown) (no (unknown) (unknown) medication (units (unk nown) date) options during unknown) labor. Tdap given today. (unknown) (no (unknown) (unknown) musculoskeletal (units (unknown) date) discomforts of unknown) , especially by the end of the day. No (unknown) (no (unknown) (unknown) needed. (units (unkno wn) date) unknown) (unknown) (no (unknown) (unknown) normal Glucola, (units (unknown) date) hemoglobin was unknown) 11.8. Questions answered regarding pain (unknown) (no (unknown) (unknown) noted cramping, (units (unknown) date) contractions, unknown) vaginal bleeding or leakage of fluid. She had a (unknown) (no (unknown) (unknown) nothing (units (unkno wn) date) persistent. unknown) Feeling good movement. Occasionally leaking few (unknown) (no (unknown) (unknown) number of (units (unkn own) date) children: 0 unknown) (unknown) (no (unknown) (unknown) occasional (units (unk nown) date) irregular stronger unknown) contractions, but nothing regular. Reviewed labor (unknown) (no (unknown) (unknown) occupational (units (u nknown) date) status: unemployed unknown) (unknown) (no (unknown) (unknown) occurred due to (units (unknown) date) the inherent unknown) limitations of voice recognition software. Please (unknown) (no (unknown) (unknown) or bleeding. No (units (unknown) date) persistent unknown) cramping. Ultrasound for EFW today due to IVF (unknown) (no (unknown) (unknown) other problems. (units (unknown) date) Overall sleeping unknown) well. She felt a little cramping which (unknown) (no (unknown) (unknown) other problems. (units (unknown) date) Tried 1 Colace unknown) daily without improvement. Discussed increase (unknown) (no (unknown) (unknown) pets and animals: (units (unknown) date) Yes (2 dogs) unknown) (unknown) (no (unknown) (unknown) . EFW 44 (units (unknown) date) percentile, 2022 unknown) g, 4 lb 7 oz. GOMEZ 14.6. (unknown) (no (unknown) (unknown) prevention and (units (unknown) date) Rubella unknown) Immunization (unknown) (no (unknown) (unknown) read the note (units ( unknown) date) carefully and unknown) recognize, using context, where these substitutions (unknown) (no (unknown) (unknown) recheck a growth (units (unknown) date) ultrasound, unknown) ordered, for IVF . (unknown) (no (unknown) (unknown) resolve, only has (units (unknown) date) felt an occasional unknown) contraction. No LOF or VB. Feeling good (unknown) (no (unknown) (unknown) reviewed had a (units (unknown) date) palpate for unknown) contractions, and if having every 10 minutes or more (unknown) (no (unknown) (unknown) reviewed, (units (unkn own) date) coverage 24 hours unknown) a day and participation of father in care (unknown) (no (unknown) (unknown) routine (units ( unknown) date) movement. She will unknown) do her Glucola/H/H next visit. Offered, (unknown) (no (unknown) (unknown) s/sx and when to (units (unknown) date) call. GBS was unknown) negative. No concerns. F/u in 1 week or as (unknown) (no (unknown) (unknown) screen next (units (un known) date) visit. unknown) (unknown) (no (unknown) (unknown) seatbelt use: (units ( unknown) date) always unknown) (unknown) (no (unknown) (unknown) second hand (units (un known) date) exposure: No unknown) (unknown) (no (unknown) (unknown) she is feeling (units ( unknown) date) Bc Joy or unknown) the baby, when feels tight in the upper abdomen. (unknown) (no (unknown) (unknown) software. 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 After (units (unknown) date) review, may need unknown) to increase water intake recently, and (unknown) (no (unknown) (unknown) to use as an (units (u nknown) date) abdominal binder. unknown) Will try to fit her for an abdominal binder (unknown) (no (unknown) (unknown) travel history: (units (unknown) date) recent ([place] unknown) 12/2020) (unknown) (no (unknown) (unknown) water heater temp (units (unknown) date) set < 120 deg: No unknown) (unsure) (unknown) (no (unknown) (unknown) well-balanced (units ( unknown) date) diet: about half unknown) the time (unknown) (no (unknown) (unknown) working smoke (units ( unknown) date) detector in home: unknown) Yes Result panel 339 (unknown) (no (unknown) (unknown) (no value) (units (unk nown) date) unknown) (unknown) (no (unknown) (unknown) (+18 lb) 102/68 N (units (unknown) date) unknown) (unknown) (no (unknown) (unknown) (+26 lb) 128/72 N (units (unknown) date) unknown) (unknown) (no (unknown) (unknown) (+3 lb) 110/70 N (units (unknown) date) unknown) (unknown) (no (unknown) (unknown) (+32 lb) 110/72 1 (units (unknown) date) unknown) (unknown) (no (unknown) (unknown) (+36 lb) 114/64 N (units (unknown) date) unknown) (unknown) (no (unknown) (unknown) (+39 lb) 104/70 (units (unknown) date) TR unknown) (unknown) (no (unknown) (unknown) (+43 lb) 122/68 (units (unknown) date) TR unknown) (unknown) (no (unknown) (unknown) (+45 lb) 116/68 (units (unknown) date) TR unknown) (unknown) (no (unknown) (unknown) (+47 lb) 122/72 N (units (unknown) date) unknown) (unknown) (no (unknown) (unknown) (+6 lb) 104/66 TR (units (unknown) date) unknown) (unknown) (no (unknown) (unknown) (+9 lb) 108/78 N (units (unknown) date) unknown) (unknown) (no (unknown) (unknown) (1) 38 weeks (units (u nknown) date) gestation of unknown) : (unknown) (no (unknown) (unknown) ADDENDUM (units (u nknown) date) unknown) (unknown) (no (unknown) (unknown) Genetic (units (unkn own) date) Screening/Teratolo unknown) gy Counseling - Includes patient, baby's father, or (unknown) (no (unknown) (unknown) -?-?-?-?-?-?-?-?- (units (unknown) date) ?-?-?-? unknown) (unknown) (no (unknown) (unknown) 02 (units (unkno wn) date) unknown) (unknown) (no (unknown) (unknown) 12/08/2021 (units (unk nown) date) Caceres viable unknown) intrauterine gestation size equal to dates (unknown) (no (unknown) (unknown) 12/08/21 (units (unkno wn) date) unknown) (unknown) (no (unknown) (unknown) 01/05/22 (units (unkno wn) date) unknown) (unknown) (no (unknown) (unknown) 02/02/22 (units (unkno wn) date) unknown) (unknown) (no (unknown) (unknown) 02/17/19 8 (units (unk nown) date) spontaneous unknown) (unknown) (no (unknown) (unknown) 02/28/22 (units (unkno wn) date) unknown) (unknown) (no (unknown) (unknown) 03/28/22 (units (unkno wn) date) unknown) (unknown) (no (unknown) (unknown) 08:02 (units (unkno wn) date) unknown) (unknown) (no (unknown) (unknown) 04/25/22 (units (unkno wn) date) unknown) (unknown) (no (unknown) (unknown) 05/10/22 (units (unkno wn) date) unknown) (unknown) (no (unknown) (unknown) 05/24/22 (units (unkno wn) date) unknown) (unknown) (no (unknown) (unknown) 06/07/22 (units (unkno wn) date) unknown) (unknown) (no (unknown) (unknown) 06/15/22 (units (unkno wn) date) unknown) (unknown) (no (unknown) (unknown) 10w 6d 183 lb (units ( unknown) date) unknown) (unknown) (no (unknown) (unknown) 06/21/22 (units (unkno wn) date) unknown) (unknown) (no (unknown) (unknown) 06/23/22 1344 (units ( unknown) date) unknown) (unknown) (no (unknown) (unknown) 06/24/22 1318 (units ( unknown) date) unknown) (unknown) (no (unknown) (unknown) 07/01/22 (units (unkno wn) date) Ultrasound #1 38w unknown) 6d (unknown) (no (unknown) (unknown) 1318 (units (unkno wn) date) unknown) (unknown) (no (unknown) (unknown) 14w 6d 186 lb (units ( unknown) date) unknown) (unknown) (no (unknown) (unknown) 18w 6d 189 lb (units ( unknown) date) unknown) (unknown) (no (unknown) (unknown) 22w 4d 198 lb (units ( unknown) date) unknown) (unknown) (no (unknown) (unknown) 26w 4d 206 lb (units ( unknown) date) unknown) (unknown) (no (unknown) (unknown) 26wk4d. Pt with (units (unknown) date) some abdominal unknown) musculoskeletal discomfort, lower and (unknown) (no (unknown) (unknown) [id number], IVF (units ( unknown) date) , at unknown) 22wks here for DANYELLE visit. Constipation, no (unknown) (no (unknown) (unknown) 27yo (units (unkn own) date) presents for DANYELLE unknown) visit @ 36wk5d. She reports some normal (unknown) (no (unknown) (unknown) 2wk (units (unkno wn) date) unknown) (unknown) (no (unknown) (unknown) 30w 4d 212 lb (units ( unknown) date) unknown) (unknown) (no (unknown) (unknown) 32w 5d 216 lb (units ( unknown) date) unknown) (unknown) (no (unknown) (unknown) 32wk5d. Trini (units (unknown) date) questions how to unknown) feel contractions, uncertain at times if (unknown) (no (unknown) (unknown) 34w 5d 219 lb (units ( unknown) date) unknown) (unknown) (no (unknown) (unknown) 36w 5d 223 lb (units ( unknown) date) unknown) (unknown) (no (unknown) (unknown) 37w 6d 225 lb (units ( unknown) date) unknown) (unknown) (no (unknown) (unknown) 38w 5d 227 lb (units ( unknown) date) unknown) (unknown) (no (unknown) (unknown) [id number] (units (unkno wn) date) unknown) (unknown) (no (unknown) (unknown) Abnormal Pap (units (u nknown) date) smear of cervix unknown) (-2013) (unknown) (no (unknown) (unknown) Abnormal lab (units (u nknown) date) values 1st unknown) trimester: discussed (unknown) (no (unknown) (unknown) Add'l Plan (units (unk nown) date) Details unknown) (unknown) (no (unknown) (unknown) Addendum (units (unkno wn) date) Documented By: Lynne unknown) Sirisha Campuzano MD (unknown) (no (unknown) (unknown) Addendum Signed (units (unknown) date) By: unknown) <Electronically signed by Lynne Mcgee (unknown) (no (unknown) (unknown) Age/Sex: 27 / F (units (unknown) date) Date of Service: unknown) (unknown) (no (unknown) (unknown) Allergies (units (unkn own) date) unknown) (unknown) (no (unknown) (unknown) [place], [place] (units ( unknown) date) [id number] unknown) (unknown) (no (unknown) (unknown) Anesthesia (units (unk nown) date) unknown) (unknown) (no (unknown) (unknown) Aneuploidy (units (unk nown) date) Screening Offered: unknown) Declined (unknown) (no (unknown) (unknown) Anticipated (units (un known) date) course of unknown) care: discussed (unknown) (no (unknown) (unknown) Assessment and (units (unknown) date) Plan unknown) (unknown) (no (unknown) (unknown) Attending Dr: Lynne (units (unknown) date) Sirisha Campuzano MD unknown) (unknown) (no (unknown) (unknown) BMI 40.1 (units (unkno wn) date) unknown) (unknown) (no (unknown) (unknown) BP 122/72 (units (unkn own) date) unknown) (unknown) (no (unknown) (unknown) (units (unkno wn) date) Plan/Preferences unknown) (unknown) (no (unknown) (unknown) Planning (units (unknown) date) unknown) (unknown) (no (unknown) (unknown) Blood Pressure (units (unknown) date) Location Lt unknown) brachial (unknown) (no (unknown) (unknown) Blood (units (unkno wn) date) transfusions?: yes unknown) (never had but willing to accept) (unknown) (no (unknown) (unknown) Breastfeed Preg (units (unknown) date) Comp Name unknown) (unknown) (no (unknown) (unknown) Childbirth (units (unk nown) date) Classes: discussed unknown) (unknown) (no (unknown) (unknown) Current Estimate (units (unknown) date) 06/30/22 Manual unknown) 39w 0d IVF pregnan (unknown) (no (unknown) (unknown) Current (units (unknown) date) History unknown) (unknown) (no (unknown) (unknown) : 1995 (units (unknown) date) Acct:[id number] unknown) (unknown) (no (unknown) (unknown) Date of positive (units (unknown) date) home unknown) test: 10/16/21 (unknown) (no (unknown) (unknown) Date (units (unkno wn) date) unknown) (unknown) (no (unknown) (unknown) Del. Date (units (unkn own) date) GA/Weeks Labor unknown) Lgth Wt Sex Route Outcome Anesthesia Place (unknown) (no (unknown) (unknown) Delivery Date: (units (unknown) date) 02/17/19 Last unknown) Updated by: Juhi Hayes R.N. (unknown) (no (unknown) (unknown) Delv (units (unkno wn) date) unknown) (unknown) (no (unknown) (unknown) Denies Congenital (units (unknown) date) Heart Defect, unknown) Denies Down Syndrome, Denies Muscular Dystrophy, (unknown) (no (unknown) (unknown) Denies Maternal (units (unknown) date) Metabolic Disorder unknown) (EG,TYPE 1 Diabetes, PKU), Denies Patient or (unknown) (no (unknown) (unknown) Denies Neural (units ( unknown) date) Tube Defect unknown) (Meningomyelocele, Spina Bifida, or Anencephaly), D (unknown) (no (unknown) (unknown) Denies Sickle (units ( unknown) date) Cell Disease or unknown) Trait (), Denies Hemophilia or other blood (unknown) (no (unknown) (unknown) Denies other (units (u nknown) date) unknown) (unknown) (no (unknown) (unknown) Denies over the (units (unknown) date) counter unknown) medications, Denies alcohol, Denies illicit drugs and (unknown) (no (unknown) (unknown) Depression: (units (un known) date) discussed unknown) (unknown) (no (unknown) (unknown) Dept at (units (unkno wn) date) . 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), (unknown) (no (unknown) (unknown) Documented By: (units (unknown) date) Lynne Campuzano unknown) 06/21/22 08 (unknown) (no (unknown) (unknown) LORY Calculator (units (unknown) date) unknown) (unknown) (no (unknown) (unknown) EGA Weight BP (units ( unknown) date) UGlucose unknown) (unknown) (no (unknown) (unknown) Encounter for in (units (unknown) date) vitro unknown) fertilization () (unknown) (no (unknown) (unknown) Estimated (units (unkn own) date) Delivery Date unknown) Method Current (unknown) (no (unknown) (unknown) Exercise and (units (u nknown) date) activity, unknown) work/environmental /hazards, Sexual activity, X-ray (unknown) (no (unknown) (unknown) Expected Delivery (units (unknown) date) Route/Plan unknown) (unknown) (no (unknown) (unknown) FM returns to a (units (unknown) date) lot of normal unknown) movement. On exam today, FM seen. Advised her, (unknown) (no (unknown) (unknown) Family History (units (unknown) date) (Updated 01/04/22 unknown) @ 23:06 by Paris Davalos) (unknown) (no (unknown) (unknown) Father of Baby: (units (unknown) date) Gerda unknown) (unknown) (no (unknown) (unknown) [facility]) (unknown) (no (unknown) (unknown) First Trimester (units (unknown) date) Education unknown) Checklist (unknown) (no (unknown) (unknown) (units (unkno wn) date) unknown) (unknown) (no (unknown) (unknown) Genetic Screening (units (unknown) date) + Counseling unknown) (unknown) (no (unknown) (unknown) Genetic Screening (units (unknown) date) unknown) (unknown) (no (unknown) (unknown) Grandfather (units (un known) date) Diabetes mellitus unknown) (unknown) (no (unknown) (unknown) Grandmother (units (un known) date) Breast cancer unknown) (unknown) (no (unknown) (unknown) Grandmother (units (un known) date) Hypertension unknown) (unknown) (no (unknown) (unknown) 2 (units (unkn own) date) Multiple births unknown) (unknown) (no (unknown) (unknown) HIV risk (units (unkno wn) date) evaluation: low unknown) risk (unknown) (no (unknown) (unknown) Health Center (units ( unknown) date) Education unknown) (unknown) (no (unknown) (unknown) Health center (units ( unknown) date) information: unknown) nature of practice discussed, visit schedule (unknown) (no (unknown) (unknown) Height 5 ft 3 in (units (unknown) date) unknown) (unknown) (no (unknown) (unknown) Hepatitis C risk (units (unknown) date) evaluation: low unknown) risk (unknown) (no (unknown) (unknown) Here for a DANYELLE (units (unknown) date) visit @ 38wk5d. unknown) She denies any problems. 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) unknown) (unknown) (no (unknown) (unknown) Montague's (units (u nknown) date) Chorea, Denies unknown) Other inherited genetic or chromosomal disorder, (unknown) (no (unknown) (unknown) Hx # (units (u nknown) date) Pregnancies unknown) Elective abortions (unknown) (no (unknown) (unknown) Hx # Term (units (unkn own) date) Pregnancies unknown) Ectopic pregnancies (unknown) (no (unknown) (unknown) Hx of (units (unkno wn) date) tonsillectomy unknown) () (unknown) (no (unknown) (unknown) IVF for this (units (u nknown) date) , unknown) declined Echo 02/28/22 32 wk growth US 44%, f/u (unknown) (no (unknown) (unknown) Infection History (units (unknown) date) unknown) (unknown) (no (unknown) (unknown) Infection history (units (unknown) date) comments: needs unknown) flu + covid vaccines (unknown) (no (unknown) (unknown) Infectious (units (unk nown) date) Disease Education unknown) (unknown) (no (unknown) (unknown) Infectious (units (unk nown) date) disease exposure: unknown) chicken pox immunity discussed, tuberculosis (unknown) (no (unknown) (unknown) 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) unknown) (unknown) (no (unknown) (unknown) Initial Weight: (units (unknown) date) 180 lb unknown) (unknown) (no (unknown) (unknown) Initials (units (unkno wn) date) unknown) (unknown) (no (unknown) (unknown) Intake Clinical (units (unknown) date) Staff unknown) (unknown) (no (unknown) (unknown) Intake Note: (units (u nknown) date) unknown) (unknown) (no (unknown) (unknown) Intake performed (units (unknown) date) by: Tricia Adan unknown) (unknown) (no (unknown) (unknown) Intake (units (unkno wn) date) unknown) (unknown) (no (unknown) (unknown) Trini presents (units (unknown) date) today for routine unknown) OB visit at 37w6d. 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) () (unknown) (no (unknown) (unknown) Marital status: (units (unknown) date) unknown) (unknown) (no (unknown) (unknown) Medical History (units (unknown) date) (Updated 02/28/22 unknown) @ 08:37 by Lynne Campuzano MD) (unknown) (no (unknown) (unknown) Mother (units (unkno wn) date) Hypertension unknown) (unknown) (no (unknown) (unknown) N 140 15 4wk (units (u nknown) date) unknown) (unknown) (no (unknown) (unknown) N Yes 142 19 girl (units (unknown) date) 4wk unknown) (unknown) (no (unknown) (unknown) N Yes 149 39 (units (u nknown) date) Vertex absent unknown) 0/20% 1wk (unknown) (no (unknown) (unknown) N Yes no 140 (units (u nknown) date) Vertex absent 2wk unknown) (unknown) (no (unknown) (unknown) N Yes no 143 22 (units (unknown) date) absent 4wk unknown) (unknown) (no (unknown) (unknown) N Yes no 144 27 (units (unknown) date) absent 4 wk unknown) (unknown) (no (unknown) (unknown) N Yes no 144 (units (u nknown) date) Vertex absent EFW unknown) 44%, GOMEZ 14 (unknown) (no (unknown) (unknown) N Yes no 145 30 (units (unknown) date) absent 4wk unknown) (unknown) (no (unknown) (unknown) N Yes no 148 37 (units (unknown) date) Vertex absent unknown) 0/long order (unknown) (no (unknown) (unknown) N Yes yes 144 38 (units (unknown) date) Vertex absent GBS unknown) negativ (unknown) (no (unknown) (unknown) NF (units (unkno wn) date) unknown) (unknown) (no (unknown) (unknown) No Known Drug (units ( unknown) date) Allergies Allergy unknown) (Unverified 06/15/22 11:35) (unknown) (no (unknown) (unknown) No vaginal (units (unk nown) date) bleeding. No unknown) change in vaginal discharge. No fevers. No vaginal (unknown) (no (unknown) (unknown) Notes (units (unkno wn) date) unknown) (unknown) (no (unknown) (unknown) Number of Living (units (unknown) date) Children unknown) (unknown) (no (unknown) (unknown) Number of (units (unkn own) date) fetuses:: Single unknown) (unknown) (no (unknown) (unknown) Nutrition and (units ( unknown) date) weight gain unknown) counseling: special diet: discussed (unknown) (no (unknown) (unknown) OB Office Visit (units (unknown) date) unknown) (unknown) (no (unknown) (unknown) OB Visit Log (units (u nknown) date) unknown) (unknown) (no (unknown) (unknown) On control (units (unknown) date) at conception?: No unknown) (IVF) (unknown) (no (unknown) (unknown) Other Estimates (units (unknown) date) 06/26/22 LMP unknown) (Certain) 39w 4d (unknown) (no (unknown) (unknown) PFSH (units (unkno wn) date) unknown) (unknown) (no (unknown) (unknown) Para 0 (units (unkno wn) date) Spontaneous unknown) abortions 1 (unknown) (no (unknown) (unknown) Partner history (units (unknown) date) of STD: denies hx unknown) (unknown) (no (unknown) (unknown) Partner history (units (unknown) date) of genital herpes: unknown) No (unknown) (no (unknown) (unknown) Partner: Bebeto (units (unknown) date) Gerda unknown) (unknown) (no (unknown) (unknown) Past Pregnancies (units (unknown) date) unknown) (unknown) (no (unknown) (unknown) Patient is (units (unk nown) date) feeling well. Some unknown) mild cramping. No bleeding. No fevers. (unknown) (no (unknown) (unknown) Patient is (units (unk nown) date) feeling well. Some unknown) pressure sensation but no other concerns. (unknown) (no (unknown) (unknown) Patient's age 35 (units (unknown) date) years or older as unknown) of estimated date of delivery: No (unknown) (no (unknown) (unknown) Patient: (units (unkno wn) date) Trini Lorenz unknown) MR#: [id number] (unknown) (no (unknown) (unknown) Personal history (units (unknown) date) of STD: HPV (2015) unknown) (unknown) (no (unknown) (unknown) Personal history (units (unknown) date) of genital herpes: unknown) No (unknown) (no (unknown) (unknown) Position Sitting (units (unknown) date) unknown) (unknown) (no (unknown) (unknown) History (units (unknown) date) unknown) (unknown) (no (unknown) (unknown) type:: (units (unknown) date) Other Normal unknown) (unknown) (no (unknown) (unknown) (units (unkno wn) date) Education unknown) (unknown) (no (unknown) (unknown) Initial (units (unknown) date) Assessment unknown) (unknown) (no (unknown) (unknown) Specific (units (unknown) date) Issues/Plans unknown) (unknown) (no (unknown) (unknown) Testing: (units (unknown) date) discussed unknown) (unknown) (no (unknown) (unknown) Visit (units (unknown) date) unknown) (unknown) (no (unknown) (unknown) (units (unkno wn) date) education packet: unknown) Child education/plan, symptoms, (unknown) (no (unknown) (unknown) Primary Care (units (u nknown) date) Provider: Britt unknown) Sharmaine (unknown) (no (unknown) (unknown) Primary Ob (units (unk nown) date) Provider: unknown) Lynne Campuzano (unknown) (no (unknown) (unknown) Prior (units (unkno wn) date) GBS-Infected unknown) child: No (unknown) (no (unknown) (unknown) Providers (units (unkn own) date) unknown) (unknown) (no (unknown) (unknown) Pt here for OB (units (unknown) date) Check unknown) (unknown) (no (unknown) (unknown) Quad screen nml (units (unknown) date) unknown) (unknown) (no (unknown) (unknown) DANYELLE visit 34wk5d. (units (unknown) date) Feeling well. She unknown) reports sometimes a few days of (unknown) (no (unknown) (unknown) DANYELLE@30wk4d. She (units (unknown) date) denies any unknown) problems. She bought an abdominal binder and (unknown) (no (unknown) (unknown) Rash or viral (units ( unknown) date) illness since last unknown) menstrual period: No (unknown) (no (unknown) (unknown) Reason For Visit (units (unknown) date) unknown) (unknown) (no (unknown) (unknown) Recent travel (units ( unknown) date) outside of unknown) country?: No (unknown) (no (unknown) (unknown) Recurrent (units (unkn own) date) loss or unknown) a stillbirth: No (unknown) (no (unknown) (unknown) Routine (units (unkno wn) date) precautions and unknown) normal physiological changes of (unknown) (no (unknown) (unknown) Routine (units (unkno wn) date) precautions unknown) reviewed. (unknown) (no (unknown) (unknown) Rubella nonimmune (units (unknown) date) immunize unknown) (unknown) (no (unknown) (unknown) S/P LEEP (loop (units (unknown) date) electrosurgical unknown) excision procedure) () (unknown) (no (unknown) (unknown) Safety (units (unkno wn) date) unknown) (unknown) (no (unknown) (unknown) Scheduled for IOL (units (unknown) date) for Cervidil unknown) Sunday, potential Pitocin then 07/05. (unknown) (no (unknown) (unknown) Signed By: (units (unk nown) date) <Electronically unknown) signed by Lynne Campuzano MD> (unknown) (no (unknown) (unknown) Signed with (units (un known) date) Addenda unknown) (unknown) (no (unknown) (unknown) Smoking Status: (units (unknown) date) Never smoker unknown) (unknown) (no (unknown) (unknown) Smoking/Tobacco (units (unknown) date) use: discussed unknown) (unknown) (no (unknown) (unknown) Social History (units (unknown) date) unknown) (unknown) (no (unknown) (unknown) Spoke with (units (unk nown) date) patient and she unknown) was fine with the dates. (unknown) (no (unknown) (unknown) Surgical History (units (unknown) date) (Updated 01/04/22 unknown) @ 23:05 by Paris Davalos) (unknown) (no (unknown) (unknown) Symptoms since (units (unknown) date) LMP: Reports unknown) amenorrhea, nausea, fatigue, urinary frequency, (unknown) (no (unknown) (unknown) TR 174 11 4wk (units ( unknown) date) unknown) (unknown) (no (unknown) (unknown) Tdap status: (units (u nknown) date) immunized unknown) (unknown) (no (unknown) (unknown) Teratogen (units (unkn own) date) Exposures since unknown) LMP/Conception: Denies prescription medications, (unknown) (no (unknown) (unknown) Testing Education (units (unknown) date) unknown) (unknown) (no (unknown) (unknown) Testing education (units (unknown) date) completed: Genetic unknown) testing, group B strep and Cell Free DNA (unknown) (no (unknown) (unknown) This note may (units ( unknown) date) have been all or unknown) partially generated using voice recognition (unknown) (no (unknown) (unknown) Tobacco + (units (unkn own) date) Substance Use unknown) (unknown) (no (unknown) (unknown) Tobacco Status (units (unknown) date) unknown) (unknown) (no (unknown) (unknown) Trimester:: 3rd (units (unknown) date) Trimester unknown) (28wks-Del) (unknown) (no (unknown) (unknown) Type(s) of (units (unk nown) date) exercise: none unknown) (unknown) (no (unknown) (unknown) Typically feels (units (unknown) date) in the a.m.. Only unknown) feeling occasionally, nothing routinely. I (unknown) (no (unknown) (unknown) UProtein Movement (units (unknown) date) PreLabor FHR Fndl unknown) Ht Pres Edema Cerv Exam US/Comment Next Appt (unknown) (no (unknown) (unknown) Ultrasound (units (unk nown) date) Details:: Prior 7 unknown) week 3 day ultrasound at IVF on 11/15/21 clinic (unknown) (no (unknown) (unknown) Ultrasound (units (unk nown) date) unknown) (unknown) (no (unknown) (unknown) VB. Feeling good (units (unknown) date) movement. On unknown) discussion, she desire induction of labor (unknown) (no (unknown) (unknown) Vaginal (units (unkno wn) date) unknown) (unknown) (no (unknown) (unknown) Varicella/chicken (units (unknown) date) pox status: unknown) immunized and previous disease (mild case as (unknown) (no (unknown) (unknown) Visit Date: (units (un known) date) 12/08/21 Last unknown) Updated by: Carrie Pichardo MD (unknown) (no (unknown) (unknown) Visit Date: (units (un known) date) 01/05/22 Last unknown) Updated by: Carrie Pichardo MD (unknown) (no (unknown) (unknown) Visit Date: (units (un known) date) 02/02/22 Last unknown) Updated by: Carrie Pichardo MD (unknown) (no (unknown) (unknown) Visit Date: (units (un known) date) 02/28/22 Last unknown) Updated by: Lynne Campuzano MD (unknown) (no (unknown) (unknown) Visit Date: (units (un known) date) 03/28/22 Last unknown) Updated by: Lynne Campuzano MD (unknown) (no (unknown) (unknown) Visit Date: (units (un known) date) 04/25/22 Last unknown) Updated by: Lynne Campuzano MD (unknown) (no (unknown) (unknown) Visit Date: (units (un known) date) 05/10/22 Last unknown) Updated by: Lynne Campuzano MD (unknown) (no (unknown) (unknown) Visit Date: (units (un known) date) 05/24/22 Last unknown) Updated by: Lynne Campuzano MD (unknown) (no (unknown) (unknown) Visit Date: (units (un known) date) 06/07/22 Last unknown) Updated by: Lynne Campuzano MD (unknown) (no (unknown) (unknown) Visit Date: (units (un known) date) 06/15/22 Last unknown) Updated by: Kacy Palomo P.A-C (unknown) (no (unknown) (unknown) Visit Date: (units (un known) date) 06/21/22 Last unknown) Updated by: Lynne Campuzano MD (unknown) (no (unknown) (unknown) Visit Reasons: OB (units (unknown) date) check unknown) (unknown) (no (unknown) (unknown) Vitals (units (unkno wn) date) unknown) (unknown) (no (unknown) (unknown) Vitamins and (units (u nknown) date) iron, Diet and unknown) weight gain, Fish and mercury intake, Caffeine use, (unknown) (no (unknown) (unknown) WG (units (unkno wn) date) unknown) (unknown) (no (unknown) (unknown) Weeks gestation:: (units (unknown) date) 38 unknown) (unknown) (no (unknown) (unknown) Weight 227 lb (units ( unknown) date) unknown) (unknown) (no (unknown) (unknown) Millis teeth (units (u nknown) date) extracted () unknown) (unknown) (no (unknown) (unknown) Zika virus (units (unk nown) date) exposure: No unknown) (unknown) (no (unknown) (unknown) after she (units (unkn own) date) hydrates. No unknown) persistent cramping, ctx, LOF or VB. Discussed GBS (unknown) (no (unknown) (unknown) alcohol intake: (units (unknown) date) former unknown) (unknown) (no (unknown) (unknown) amh (units (unkno wn) date) unknown) (unknown) (no (unknown) (unknown) and office visits (units (unknown) date) unknown) (unknown) (no (unknown) (unknown) anyone in either (units (unknown) date) family with: unknown) (unknown) (no (unknown) (unknown) at 40 weeks if no (units (unknown) date) labor prior. Will unknown) schedule and call her with a date. (unknown) (no (unknown) (unknown) baby's father had (units (unknown) date) a child with unknown) defects not listed above and Denies Other (unknown) (no (unknown) (unknown) bleeding. She is (units (unknown) date) feeling baby move. unknown) Routine precautions reviewed. (unknown) (no (unknown) (unknown) caffeine: Yes (units ( unknown) date) (aware of 200mg unknown) daily limit) (unknown) (no (unknown) (unknown) carbon monox (units (u nknown) date) detector in home: unknown) Yes (unknown) (no (unknown) (unknown) child) (units (unkno wn) date) unknown) (unknown) (no (unknown) (unknown) concerns with (units ( unknown) date) COVID infection unknown) and and urged patient to consider (unknown) (no (unknown) (unknown) consistent with (units (unknown) date) dates. unknown) (unknown) (no (unknown) (unknown) cramping, vaginal (units (unknown) date) bleeding or unknown) leakage of fluid. Doing her Glucola today. (unknown) (no (unknown) (unknown) current (units (unkno wn) date) occupational unknown) exposures/hazards: No (unknown) (no (unknown) (unknown) cy (units (unkno wn) date) unknown) (unknown) (no (unknown) (unknown) cytotec (units (unkno wn) date) unknown) (unknown) (no (unknown) (unknown) daily servings (units (unknown) date) fruits/ve-4 unknown) (unknown) (no (unknown) (unknown) declined referral (units (unknown) date) for unknown) echocardiogram for IVF . (unknown) (no (unknown) (unknown) discussed (units (unkn own) date) increased fiber in unknown) diet. May use MiraLax. No uterine type cramping, (unknown) (no (unknown) (unknown) discussed with (units (unknown) date) the patient. unknown) Patient is not COVID vaccinated. Discussed (unknown) (no (unknown) (unknown) disorders, Denies (units (unknown) date) Cystic Fibrosis, unknown) Denies Mental Retardation/Autism , Denies (unknown) (no (unknown) (unknown) do you feel safe (units (unknown) date) at home: Yes unknown) (unknown) (no (unknown) (unknown) drops of urine, (units (unknown) date) does feel it is unknown) from the bladder. No vaginal leakage of fluid (unknown) (no (unknown) (unknown) during the past (units (unknown) date) year weight has: unknown) decreased > 10 lbs (lost 30 lbs) (unknown) (no (unknown) (unknown) e (units (unkno wn) date) unknown) (unknown) (no (unknown) (unknown) eating out: (units (un known) date) rarely or never unknown) (unknown) (no (unknown) (unknown) ed 1wk (units (unkno wn) date) unknown) (unknown) (no (unknown) (unknown) education level: (units (unknown) date) college unknown) (unknown) (no (unknown) (unknown) enies Epifanio-Sachs (units (unknown) date) (Ashkenazi Quaker, unknown) [place], [place]), Denies Nadja (unknown) (no (unknown) (unknown) exposure (units (unkno wn) date) discussed, CMV unknown) discussed, Toxoplasmosis precautions, Listeriosis (unknown) (no (unknown) (unknown) exposure, (units (unkn own) date) Medication use, unknown) Sauna/hot tub use, Dental care and Travel (unknown) (no (unknown) (unknown) feeling some less (units (unknown) date) movement, but she unknown) does kick counts and gets enough kicks, then (unknown) (no (unknown) (unknown) feeling some upper (units (unknown) date) discomfort when unknown) standing, but some muscle support tape to try (unknown) (no (unknown) (unknown) feels better with (units (unknown) date) using this when on unknown) her feet. Feeling good movement. No (unknown) (no (unknown) (unknown) movement (units (unknown) date) and denies VB, unknown) LOF. Growth US showed normal GOMEZ 18.6 and growth (unknown) (no (unknown) (unknown) movement (units (unknown) date) daily. GBS screen unknown) collected. She desired a cervical check. Will (unknown) (no (unknown) (unknown) fire extinguisher (units (unknown) date) in home: No unknown) (unknown) (no (unknown) (unknown) firearms in home: (units (unknown) date) No unknown) (unknown) (no (unknown) (unknown) frequency: does (units (unknown) date) not exercise unknown) (unknown) (no (unknown) (unknown) frequent, then to (units (unknown) date) call. Occasionally unknown) feeling vaginal pressure when she sits, (unknown) (no (unknown) (unknown) getting the (units (un known) date) vaccine in unknown) . (unknown) (no (unknown) (unknown) growth US ordered (units (unknown) date) @36wks unknown) (unknown) (no (unknown) (unknown) have occurred. If (units (unknown) date) there are any unknown) questions, please contact the Medical Records (unknown) (no (unknown) (unknown) having a girl (units ( unknown) date) unknown) (unknown) (no (unknown) (unknown) her in for NST. (units (unknown) date) Feels some cramps unknown) in the morning after wakening, then results (unknown) (no (unknown) (unknown) here. No other (units (unknown) date) problems. Feeling unknown) good movement. No contractions, (unknown) (no (unknown) (unknown) household (units (unkn own) date) members: spouse unknown) (unknown) (no (unknown) (unknown) housing: house (units (unknown) date) unknown) (unknown) (no (unknown) (unknown) if she does ever (units (unknown) date) feel significantly unknown) less, then definitely call and will bring (unknown) (no (unknown) (unknown) in the 56%. The (units (unknown) date) cervical canal was unknown) not well seen. She reports Bc Joy and (unknown) (no (unknown) (unknown) irritability, (units ( unknown) date) bloating and other unknown) (headaches + constipation) (unknown) (no (unknown) (unknown) MD kian> 06/24/22 (units (unknown) date) unknown) (unknown) (no (unknown) (unknown) leakage of fluid, (units (unknown) date) vaginal bleeding unknown) or abnormal vaginal discharge. Feeling (unknown) (no (unknown) (unknown) marital status: (units (unknown) date) unknown) (unknown) (no (unknown) (unknown) may occur. (units (unk nown) date) Occasional unknown) wrong-word or 'sound-alike' substitutions may have (unknown) (no (unknown) (unknown) medication (units (unk nown) date) options during unknown) labor. Tdap given today. (unknown) (no (unknown) (unknown) musculoskeletal (units (unknown) date) discomforts of unknown) , especially by the end of the day. No (unknown) (no (unknown) (unknown) needed. (units (unkno wn) date) unknown) (unknown) (no (unknown) (unknown) normal Glucola, (units (unknown) date) hemoglobin was unknown) 11.8. Questions answered regarding pain (unknown) (no (unknown) (unknown) noted cramping, (units (unknown) date) contractions, unknown) vaginal bleeding or leakage of fluid. She had a (unknown) (no (unknown) (unknown) nothing (units (unkno wn) date) persistent. unknown) Feeling good movement. Occasionally leaking few (unknown) (no (unknown) (unknown) number of (units (unkn own) date) children: 0 unknown) (unknown) (no (unknown) (unknown) occasional (units (unk nown) date) irregular stronger unknown) contractions, but nothing regular. Reviewed labor (unknown) (no (unknown) (unknown) occupational (units (u nknown) date) status: unemployed unknown) (unknown) (no (unknown) (unknown) occurred due to (units (unknown) date) the inherent unknown) limitations of voice recognition software. Please (unknown) (no (unknown) (unknown) or bleeding. No (units (unknown) date) persistent unknown) cramping. Ultrasound for EFW today due to IVF (unknown) (no (unknown) (unknown) other problems. (units (unknown) date) Overall sleeping unknown) well. She felt a little cramping which (unknown) (no (unknown) (unknown) other problems. (units (unknown) date) Tried 1 Colace unknown) daily without improvement. Discussed increase (unknown) (no (unknown) (unknown) pets and animals: (units (unknown) date) Yes (2 dogs) unknown) (unknown) (no (unknown) (unknown) . EFW 44 (units (unknown) date) percentile, 2022 unknown) g, 4 lb 7 oz. GOMEZ 14.6. (unknown) (no (unknown) (unknown) prevention and (units (unknown) date) Rubella unknown) Immunization (unknown) (no (unknown) (unknown) read the note (units ( unknown) date) carefully and unknown) recognize, using context, where these substitutions (unknown) (no (unknown) (unknown) recheck a growth (units (unknown) date) ultrasound, unknown) ordered, for IVF . (unknown) (no (unknown) (unknown) resolve, only has (units (unknown) date) felt an occasional unknown) contraction. No LOF or VB. Feeling good (unknown) (no (unknown) (unknown) reviewed had a (units (unknown) date) palpate for unknown) contractions, and if having every 10 minutes or more (unknown) (no (unknown) (unknown) reviewed, (units (unkn own) date) coverage 24 hours unknown) a day and participation of father in care (unknown) (no (unknown) (unknown) routine (units ( unknown) date) movement. She will unknown) do her Glucola/H/H next visit. Offered, (unknown) (no (unknown) (unknown) s/sx and when to (units (unknown) date) call. GBS was unknown) negative. No concerns. F/u in 1 week or as (unknown) (no (unknown) (unknown) screen next (units (un known) date) visit. unknown) (unknown) (no (unknown) (unknown) seatbelt use: (units ( unknown) date) always unknown) (unknown) (no (unknown) (unknown) second hand (units (un known) date) exposure: No unknown) (unknown) (no (unknown) (unknown) she is feeling (units ( unknown) date) Burton Joy or unknown) the baby, when feels tight in the upper abdomen. (unknown) (no (unknown) (unknown) software. 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 No LOF or (unknown) (no (unknown) (unknown) special donna (units ( unknown) date) needs: No unknown) (unknown) (no (unknown) (unknown) substance use (units ( unknown) date) type: does not use unknown) (unknown) (no (unknown) (unknown) to 2 daily. After (units (unknown) date) review, may need unknown) to increase water intake recently, and (unknown) (no (unknown) (unknown) to use as an (units (u nknown) date) abdominal binder. unknown) Will try to fit her for an abdominal binder (unknown) (no (unknown) (unknown) [facility]: [facility] ([facility] (unknown) (no (unknown) (unknown) water heater temp (units (unknown) date) set < 120 deg: No unknown) (unsure) (unknown) (no (unknown) (unknown) well-balanced (units ( unknown) date) diet: about half unknown) the time (unknown) (no (unknown) (unknown) working smoke (units ( unknown) date) detector in home: unknown) Yes Result panel 340 (unknown) (no (unknown) (unknown) (no value) (units (unk nown) date) unknown) (unknown) (no (unknown) (unknown) (+18 lb) 102/68 N (units (unknown) date) unknown) (unknown) (no (unknown) (unknown) (+26 lb) 128/72 N (units (unknown) date) unknown) (unknown) (no (unknown) (unknown) (+3 lb) 110/70 N (units (unknown) date) unknown) (unknown) (no (unknown) (unknown) (+32 lb) 110/72 1 (units (unknown) date) unknown) (unknown) (no (unknown) (unknown) (+36 lb) 114/64 N (units (unknown) date) unknown) (unknown) (no (unknown) (unknown) (+39 lb) 104/70 (units (unknown) date) TR unknown) (unknown) (no (unknown) (unknown) (+43 lb) 122/68 (units (unknown) date) TR unknown) (unknown) (no (unknown) (unknown) (+45 lb) 116/68 (units (unknown) date) TR unknown) (unknown) (no (unknown) (unknown) (+47 lb) 122/72 N (units (unknown) date) unknown) (unknown) (no (unknown) (unknown) (+6 lb) 104/66 TR (units (unknown) date) unknown) (unknown) (no (unknown) (unknown) (+9 lb) 108/78 N (units (unknown) date) unknown) (unknown) (no (unknown) (unknown) Genetic (units (unkn own) date) Screening/Teratolo unknown) gy Counseling - Includes patient, baby's father, or (unknown) (no (unknown) (unknown) -?-?-?-?-?-?-?-?- (units (unknown) date) ?-?-?-? unknown) (unknown) (no (unknown) (unknown) 12/08/2021 (units (unk nown) date) Caceres viable unknown) intrauterine gestation size equal to dates (unknown) (no (unknown) (unknown) 12/08/21 (units (unkno wn) date) unknown) (unknown) (no (unknown) (unknown) 01/05/22 (units (unkno wn) date) unknown) (unknown) (no (unknown) (unknown) 02/02/22 (units (unkno wn) date) unknown) (unknown) (no (unknown) (unknown) 02/17/19 8 (units (unk nown) date) spontaneous unknown) (unknown) (no (unknown) (unknown) 02/28/22 (units (unkno wn) date) unknown) (unknown) (no (unknown) (unknown) 07:58 (units (unkno wn) date) unknown) (unknown) (no (unknown) (unknown) 03/28/22 (units (unkno wn) date) unknown) (unknown) (no (unknown) (unknown) 04/25/22 (units (unkno wn) date) unknown) (unknown) (no (unknown) (unknown) 05/10/22 (units (unkno wn) date) unknown) (unknown) (no (unknown) (unknown) 05/24/22 (units (unkno wn) date) unknown) (unknown) (no (unknown) (unknown) 06/07/22 (units (unkno wn) date) unknown) (unknown) (no (unknown) (unknown) 06/15/22 (units (unkno wn) date) unknown) (unknown) (no (unknown) (unknown) 10w 6d 183 lb (units ( unknown) date) unknown) (unknown) (no (unknown) (unknown) 06/21/22 (units (unkno wn) date) unknown) (unknown) (no (unknown) (unknown) 06/28/22 (units (unkno wn) date) unknown) (unknown) (no (unknown) (unknown) 06/28/22] (units (unkn own) date) unknown) (unknown) (no (unknown) (unknown) 07/01/22 (units (unkno wn) date) Ultrasound #1 39w unknown) 4d (unknown) (no (unknown) (unknown) 14w 6d 186 lb (units ( unknown) date) unknown) (unknown) (no (unknown) (unknown) 18w 6d 189 lb (units ( unknown) date) unknown) (unknown) (no (unknown) (unknown) 22w 4d 198 lb (units ( unknown) date) unknown) (unknown) (no (unknown) (unknown) 26w 4d 206 lb (units ( unknown) date) unknown) (unknown) (no (unknown) (unknown) 26wk4d. Pt with (units (unknown) date) some abdominal unknown) musculoskeletal discomfort, lower and (unknown) (no (unknown) (unknown) [id number], IVF (units ( unknown) date) , at unknown) 22wks here for DANYELLE visit. Constipation, no (unknown) (no (unknown) (unknown) 27yo (units (unkn own) date) presents for DANYELLE unknown) visit @ 36wk5d. She reports some normal (unknown) (no (unknown) (unknown) 2wk (units (unkno wn) date) unknown) (unknown) (no (unknown) (unknown) 30w 4d 212 lb (units ( unknown) date) unknown) (unknown) (no (unknown) (unknown) 32w 5d 216 lb (units ( unknown) date) unknown) (unknown) (no (unknown) (unknown) 32wk5d. Trini (units (unknown) date) questions how to unknown) feel contractions, uncertain at times if (unknown) (no (unknown) (unknown) 34w 5d 219 lb (units ( unknown) date) unknown) (unknown) (no (unknown) (unknown) 36w 5d 223 lb (units ( unknown) date) unknown) (unknown) (no (unknown) (unknown) 37w 6d 225 lb (units ( unknown) date) unknown) (unknown) (no (unknown) (unknown) 38w 5d 227 lb (units ( unknown) date) unknown) (unknown) (no (unknown) (unknown) [id number] (units (unkno wn) date) unknown) (unknown) (no (unknown) (unknown) 57 (units (unkno wn) date) unknown) (unknown) (no (unknown) (unknown) Abnormal Pap (units (u nknown) date) smear of cervix unknown) (-2013) (unknown) (no (unknown) (unknown) Abnormal lab (units (u nknown) date) values 1st unknown) trimester: discussed (unknown) (no (unknown) (unknown) Add'l Plan (units (unk nown) date) Details unknown) (unknown) (no (unknown) (unknown) Age/Sex: 27 / F (units (unknown) date) Date of Service: unknown) (unknown) (no (unknown) (unknown) Allergies (units (unkn own) date) unknown) (unknown) (no (unknown) (unknown) [place], [place] (units ( unknown) date) [id number] unknown) (unknown) (no (unknown) (unknown) Anesthesia (units (unk nown) date) unknown) (unknown) (no (unknown) (unknown) Aneuploidy (units (unk nown) date) Screening Offered: unknown) Declined (unknown) (no (unknown) (unknown) Anticipated (units (un known) date) course of unknown) care: discussed (unknown) (no (unknown) (unknown) Assessment and (units (unknown) date) Plan unknown) (unknown) (no (unknown) (unknown) Attending Dr: Lynne (units (unknown) date) Sirisha Campuzano MD unknown) (unknown) (no (unknown) (unknown) BMI 40.5 (units (unkno wn) date) unknown) (unknown) (no (unknown) (unknown) BP 128/70 (units (unkn own) date) unknown) (unknown) (no (unknown) (unknown) (units (unkno wn) date) Plan/Preferences unknown) (unknown) (no (unknown) (unknown) Planning (units (unknown) date) unknown) (unknown) (no (unknown) (unknown) Blood Pressure (units (unknown) date) Location Rt unknown) brachial (unknown) (no (unknown) (unknown) Blood (units (unkno wn) date) transfusions?: yes unknown) (never had but willing to accept) (unknown) (no (unknown) (unknown) Breastfeed Preg (units (unknown) date) Comp Name unknown) (unknown) (no (unknown) (unknown) Childbirth (units (unk nown) date) Classes: discussed unknown) (unknown) (no (unknown) (unknown) Current Estimate (units (unknown) date) 06/30/22 Manual unknown) 39w 5d IVF pregnan (unknown) (no (unknown) (unknown) Current (units (unknown) date) History unknown) (unknown) (no (unknown) (unknown) : 1995 (units (unknown) date) Acct:[id number] unknown) (unknown) (no (unknown) (unknown) Date of positive (units (unknown) date) home unknown) test: 10/16/21 (unknown) (no (unknown) (unknown) Date (units (unkno wn) date) unknown) (unknown) (no (unknown) (unknown) Del. Date (units (unkn own) date) GA/Weeks Labor unknown) Lgth Wt Sex Route Outcome Anesthesia Place (unknown) (no (unknown) (unknown) Delivery Date: (units (unknown) date) 02/17/19 Last unknown) Updated by: Juhi Hayes R.N. (unknown) (no (unknown) (unknown) Delv (units (unkno wn) date) unknown) (unknown) (no (unknown) (unknown) Denies Congenital (units (unknown) date) Heart Defect, unknown) Denies Down Syndrome, Denies Muscular Dystrophy, (unknown) (no (unknown) (unknown) Denies Maternal (units (unknown) date) Metabolic Disorder unknown) (EG,TYPE 1 Diabetes, PKU), Denies Patient or (unknown) (no (unknown) (unknown) Denies Neural (units ( unknown) date) Tube Defect unknown) (Meningomyelocele, Spina Bifida, or Anencephaly), D (unknown) (no (unknown) (unknown) Denies Sickle (units ( unknown) date) Cell Disease or unknown) Trait (), Denies Hemophilia or other blood (unknown) (no (unknown) (unknown) Denies other (units (u nknown) date) unknown) (unknown) (no (unknown) (unknown) Denies over the (units (unknown) date) counter unknown) medications, Denies alcohol, Denies illicit drugs and (unknown) (no (unknown) (unknown) Depression: (units (un known) date) discussed unknown) (unknown) (no (unknown) (unknown) Dept at (units (unkno wn) date) . 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), (unknown) (no (unknown) (unknown) Documented By: (units (unknown) date) Lynne Campuzano unknownYaz WYLIE 06/28/22 07 (unknown) (no (unknown) (unknown) Draft (units (unkno wn) date) unknown) (unknown) (no (unknown) (unknown) LORY Calculator (units (unknown) date) unknown) (unknown) (no (unknown) (unknown) EGA Weight BP (units ( unknown) date) UGlucose unknown) (unknown) (no (unknown) (unknown) Encounter for in (units (unknown) date) vitro unknown) fertilization () (unknown) (no (unknown) (unknown) Estimated (units (unkn own) date) Delivery Date unknown) Method Current (unknown) (no (unknown) (unknown) Exercise and (units (u nknown) date) activity, unknown) work/environmental /hazards, Sexual activity, X-ray (unknown) (no (unknown) (unknown) Expected Delivery (units (unknown) date) Route/Plan unknown) (unknown) (no (unknown) (unknown) FM returns to a (units (unknown) date) lot of normal unknown) movement. On exam today, FM seen. Advised her, (unknown) (no (unknown) (unknown) Family History (units (unknown) date) (Updated 01/04/22 unknown) @ 23:06 by Paris Davalos) (unknown) (no (unknown) (unknown) Father of Baby: (units (unknown) date) Gerda unknown) (unknown) (no (unknown) (unknown) [facility]) (unknown) (no (unknown) (unknown) First Trimester (units (unknown) date) Education unknown) Checklist (unknown) (no (unknown) (unknown) (units (unkno wn) date) unknown) (unknown) (no (unknown) (unknown) Genetic Screening (units (unknown) date) + Counseling unknown) (unknown) (no (unknown) (unknown) Genetic Screening (units (unknown) date) unknown) (unknown) (no (unknown) (unknown) Grandfather (units (un known) date) Diabetes mellitus unknown) (unknown) (no (unknown) (unknown) Grandmother (units (un known) date) Breast cancer unknown) (unknown) (no (unknown) (unknown) Grandmother (units (un known) date) Hypertension unknown) (unknown) (no (unknown) (unknown) 2 (units (unkn own) date) Multiple births unknown) (unknown) (no (unknown) (unknown) HIV risk (units (unkno wn) date) evaluation: low unknown) risk (unknown) (no (unknown) (unknown) Health Center (units ( unknown) date) Education unknown) (unknown) (no (unknown) (unknown) Health center (units ( unknown) date) information: unknown) nature of practice discussed, visit schedule (unknown) (no (unknown) (unknown) Height 5 ft 3 in (units (unknown) date) unknown) (unknown) (no (unknown) (unknown) Hepatitis C risk (units (unknown) date) evaluation: low unknown) risk (unknown) (no (unknown) (unknown) Here for a DANYELLE (units (unknown) date) visit @ 38wk5d. unknown) She denies any problems. She has felt (unknown) (no (unknown) (unknown) History of (units (unk nown) date) Hepatitis B: No unknown) (unknown) (no (unknown) (unknown) History of (units (unk nown) date) Hepatitis C: No unknown) (unknown) (no (unknown) (unknown) History of LEEP (units (unknown) date) procedure unknown) (unknown) (no (unknown) (unknown) Human papilloma (units (unknown) date) virus () unknown) (unknown) (no (unknown) (unknown) Nemo's (units (u nknown) date) Chorea, Denies unknown) Other inherited genetic or chromosomal disorder, (unknown) (no (unknown) (unknown) Hx # (units (u nknown) date) Pregnancies unknown) Elective abortions (unknown) (no (unknown) (unknown) Hx # Term (units (unkn own) date) Pregnancies unknown) Ectopic pregnancies (unknown) (no (unknown) (unknown) Hx of (units (unkno wn) date) tonsillectomy unknown) () (unknown) (no (unknown) (unknown) IVF for this (units (u nknown) date) , unknown) declined Echo 02/28/22 32 wk growth US 44%, f/u (unknown) (no (unknown) (unknown) Infection History (units (unknown) date) unknown) (unknown) (no (unknown) (unknown) Infection history (units (unknown) date) comments: needs unknown) flu + covid vaccines (unknown) (no (unknown) (unknown) Infectious (units (unk nown) date) Disease Education unknown) (unknown) (no (unknown) (unknown) Infectious (units (unk nown) date) disease exposure: unknown) chicken pox immunity discussed, tuberculosis (unknown) (no (unknown) (unknown) 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) unknown) (unknown) (no (unknown) (unknown) Initial Weight: (units (unknown) date) 180 lb unknown) (unknown) (no (unknown) (unknown) Initials (units (unkno wn) date) unknown) (unknown) (no (unknown) (unknown) Intake Clinical (units (unknown) date) Staff unknown) (unknown) (no (unknown) (unknown) Intake Note: (units (u nknown) date) unknown) (unknown) (no (unknown) (unknown) Intake performed (units (unknown) date) by: unknown) Elba Hopson (unknown) (no (unknown) (unknown) Intake (units (unkno wn) date) unknown) (unknown) (no (unknown) (unknown) Trini presents (units (unknown) date) today for routine unknown) OB visit at 37w6d. 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) () (unknown) (no (unknown) (unknown) Marital status: (units (unknown) date) unknown) (unknown) (no (unknown) (unknown) Medical History (units (unknown) date) (Updated 02/28/22 unknown) @ 08:37 by Lynne Campuzano MD) (unknown) (no (unknown) (unknown) Medications (units (un known) date) unknown) (unknown) (no (unknown) (unknown) Mother (units (unkno wn) date) Hypertension unknown) (unknown) (no (unknown) (unknown) N 140 15 4wk (units (u nknown) date) unknown) (unknown) (no (unknown) (unknown) N Yes 142 19 girl (units (unknown) date) 4wk unknown) (unknown) (no (unknown) (unknown) N Yes 149 39 (units (u nknown) date) Vertex absent unknown) 0/20% 1wk (unknown) (no (unknown) (unknown) N Yes no 140 (units (u nknown) date) Vertex absent 2wk unknown) (unknown) (no (unknown) (unknown) N Yes no 143 22 (units (unknown) date) absent 4wk unknown) (unknown) (no (unknown) (unknown) N Yes no 144 27 (units (unknown) date) absent 4 wk unknown) (unknown) (no (unknown) (unknown) N Yes no 144 (units (u nknown) date) Vertex absent EFW unknown) 44%, GOMEZ 14 (unknown) (no (unknown) (unknown) N Yes no 145 30 (units (unknown) date) absent 4wk unknown) (unknown) (no (unknown) (unknown) N Yes no 148 37 (units (unknown) date) Vertex absent unknown) 0/long order (unknown) (no (unknown) (unknown) N Yes yes 144 38 (units (unknown) date) Vertex absent GBS unknown) negativ (unknown) (no (unknown) (unknown) NF (units (unkno wn) date) unknown) (unknown) (no (unknown) (unknown) No Known Drug (units ( unknown) date) Allergies Allergy unknown) (Unverified 06/28/22 07:57) (unknown) (no (unknown) (unknown) No vaginal (units (unk nown) date) bleeding. No unknown) change in vaginal discharge. No fevers. No vaginal (unknown) (no (unknown) (unknown) Notes (units (unkno wn) date) unknown) (unknown) (no (unknown) (unknown) Number of Living (units (unknown) date) Children unknown) (unknown) (no (unknown) (unknown) Number of (units (unkn own) date) fetuses:: Single unknown) (unknown) (no (unknown) (unknown) Nutrition and (units ( unknown) date) weight gain unknown) counseling: special diet: discussed (unknown) (no (unknown) (unknown) OB Office Visit (units (unknown) date) unknown) (unknown) (no (unknown) (unknown) OB Visit Log (units (u nknown) date) unknown) (unknown) (no (unknown) (unknown) On control (units (unknown) date) at conception?: No unknown) (IVF) (unknown) (no (unknown) (unknown) Other Estimates (units (unknown) date) 06/26/22 LMP unknown) (Certain) 40w 2d (unknown) (no (unknown) (unknown) PFSH (units (unkno wn) date) unknown) (unknown) (no (unknown) (unknown) Para 0 (units (unkno wn) date) Spontaneous unknown) abortions 1 (unknown) (no (unknown) (unknown) Partner history (units (unknown) date) of STD: denies hx unknown) (unknown) (no (unknown) (unknown) Partner history (units (unknown) date) of genital herpes: unknown) No (unknown) (no (unknown) (unknown) Partner: Bebeto (units (unknown) date) [place] unknown) (unknown) (no (unknown) (unknown) Past Pregnancies (units (unknown) date) unknown) (unknown) (no (unknown) (unknown) Patient is (units (unk nown) date) feeling well. Some unknown) mild cramping. No bleeding. No fevers. (unknown) (no (unknown) (unknown) Patient is (units (unk nown) date) feeling well. Some unknown) pressure sensation but no other concerns. (unknown) (no (unknown) (unknown) Patient's age 35 (units (unknown) date) years or older as unknown) of estimated date of delivery: No (unknown) (no (unknown) (unknown) Patient: (units (unkno wn) date) Terri Lorenzica unknown) MR#: [id number] (unknown) (no (unknown) (unknown) Personal history (units (unknown) date) of STD: HPV (2015) unknown) (unknown) (no (unknown) (unknown) Personal history (units (unknown) date) of genital herpes: unknown) No (unknown) (no (unknown) (unknown) Position Sitting (units (unknown) date) unknown) (unknown) (no (unknown) (unknown) History (units (unknown) date) unknown) (unknown) (no (unknown) (unknown) type:: (units (unknown) date) Other Normal unknown) (unknown) (no (unknown) (unknown) (units (unkno wn) date) Education unknown) (unknown) (no (unknown) (unknown) Initial (units (unknown) date) Assessment unknown) (unknown) (no (unknown) (unknown) Specific (units (unknown) date) Issues/Plans unknown) (unknown) (no (unknown) (unknown) Testing: (units (unknown) date) discussed unknown) (unknown) (no (unknown) (unknown) Visit (units (unknown) date) unknown) (unknown) (no (unknown) (unknown) (units (unkno wn) date) education packet: unknown) Child education/plan, symptoms, (unknown) (no (unknown) (unknown) Primary Care (units (u nknown) date) Provider: Britt unknown) Sharmaine (unknown) (no (unknown) (unknown) Primary Ob (units (unk nown) date) Provider: unknown) Lynne Campuzano (unknown) (no (unknown) (unknown) Prior (units (unkno wn) date) GBS-Infected unknown) child: No (unknown) (no (unknown) (unknown) Providers (units (unkn own) date) unknown) (unknown) (no (unknown) (unknown) Quad screen nml (units (unknown) date) unknown) (unknown) (no (unknown) (unknown) DANYELLE visit 34wk5d. (units (unknown) date) Feeling well. She unknown) reports sometimes a few days of (unknown) (no (unknown) (unknown) DANYELLE@30wk4d. She (units (unknown) date) denies any unknown) problems. She bought an abdominal binder and (unknown) (no (unknown) (unknown) Rash or viral (units ( unknown) date) illness since last unknown) menstrual period: No (unknown) (no (unknown) (unknown) Reason For Visit (units (unknown) date) unknown) (unknown) (no (unknown) (unknown) Recent travel (units ( unknown) date) outside of unknown) country?: No (unknown) (no (unknown) (unknown) Recurrent (units (unkn own) date) loss or unknown) a stillbirth: No (unknown) (no (unknown) (unknown) Routine (units (unkno wn) date) precautions and unknown) normal physiological changes of (unknown) (no (unknown) (unknown) Routine (units (unkno wn) date) precautions unknown) reviewed. (unknown) (no (unknown) (unknown) Rubella nonimmune (units (unknown) date) immunize unknown) (unknown) (no (unknown) (unknown) S/P LEEP (loop (units (unknown) date) electrosurgical unknown) excision procedure) () (unknown) (no (unknown) (unknown) Safety (units (unkno wn) date) unknown) (unknown) (no (unknown) (unknown) Signed By: (units (unk nown) date) unknown) (unknown) (no (unknown) (unknown) Smoking Status: (units (unknown) date) Never smoker unknown) (unknown) (no (unknown) (unknown) Smoking/Tobacco (units (unknown) date) use: discussed unknown) (unknown) (no (unknown) (unknown) Social History (units (unknown) date) unknown) (unknown) (no (unknown) (unknown) Surgical History (units (unknown) date) (Updated 01/04/22 unknown) @ 23:05 by Paris Davalos) (unknown) (no (unknown) (unknown) Symptoms since (units (unknown) date) LMP: Reports unknown) amenorrhea, nausea, fatigue, urinary frequency, (unknown) (no (unknown) (unknown) TR 174 11 4wk (units ( unknown) date) unknown) (unknown) (no (unknown) (unknown) Tdap status: (units (u nknown) date) immunized unknown) (unknown) (no (unknown) (unknown) Teratogen (units (unkn own) date) Exposures since unknown) LMP/Conception: Denies prescription medications, (unknown) (no (unknown) (unknown) Testing Education (units (unknown) date) unknown) (unknown) (no (unknown) (unknown) Testing education (units (unknown) date) completed: Genetic unknown) testing, group B strep and Cell Free DNA (unknown) (no (unknown) (unknown) This note may (units ( unknown) date) have been all or unknown) partially generated using voice recognition (unknown) (no (unknown) (unknown) Tobacco + (units (unkn own) date) Substance Use unknown) (unknown) (no (unknown) (unknown) Tobacco Status (units (unknown) date) unknown) (unknown) (no (unknown) (unknown) Trimester:: 3rd (units (unknown) date) Trimester unknown) (28wks-Del) (unknown) (no (unknown) (unknown) Type(s) of (units (unk nown) date) exercise: none unknown) (unknown) (no (unknown) (unknown) Typically feels (units (unknown) date) in the a.m.. Only unknown) feeling occasionally, nothing routinely. I (unknown) (no (unknown) (unknown) UProtein Movement (units (unknown) date) PreLabor FHR Fndl unknown) Ht Pres Edema Cerv Exam US/Comment Next Appt (unknown) (no (unknown) (unknown) Ultrasound (units (unk nown) date) Details:: Prior 7 unknown) week 3 day ultrasound at IVF on 11/15/21 clinic (unknown) (no (unknown) (unknown) Ultrasound (units (unk nown) date) unknown) (unknown) (no (unknown) (unknown) VB. Feeling good (units (unknown) date) movement. On unknown) discussion, she desire induction of labor (unknown) (no (unknown) (unknown) Vaginal (units (unkno wn) date) unknown) (unknown) (no (unknown) (unknown) Varicella/chicken (units (unknown) date) pox status: unknown) immunized and previous disease (mild case as (unknown) (no (unknown) (unknown) Visit Date: (units (un known) date) 12/08/21 Last unknown) Updated by: Carrie Pichardo MD (unknown) (no (unknown) (unknown) Visit Date: (units (un known) date) 01/05/22 Last unknown) Updated by: Carrie Pichardo MD (unknown) (no (unknown) (unknown) Visit Date: (units (un known) date) 02/02/22 Last unknown) Updated by: Carrie Pichardo MD (unknown) (no (unknown) (unknown) Visit Date: (units (un known) date) 02/28/22 Last unknown) Updated by: Lynne Campuzano MD (unknown) (no (unknown) (unknown) Visit Date: (units (un known) date) 03/28/22 Last unknown) Updated by: Lynne Campuzano MD (unknown) (no (unknown) (unknown) Visit Date: (units (un known) date) 04/25/22 Last unknown) Updated by: Lynne Campuzano MD (unknown) (no (unknown) (unknown) Visit Date: (units (un known) date) 05/10/22 Last unknown) Updated by: Lynne Campuzano MD (unknown) (no (unknown) (unknown) Visit Date: (units (un known) date) 05/24/22 Last unknown) Updated by: Lynne Campuzano MD (unknown) (no (unknown) (unknown) Visit Date: (units (un known) date) 06/07/22 Last unknown) Updated by: Lynne Campuzano MD (unknown) (no (unknown) (unknown) Visit Date: (units (un known) date) 06/15/22 Last unknown) Updated by: Kacy Palomo P.A-C (unknown) (no (unknown) (unknown) Visit Date: (units (un known) date) 06/21/22 Last unknown) Updated by: Lynne Campuzano MD (unknown) (no (unknown) (unknown) Visit Reasons: OB (units (unknown) date) check unknown) (unknown) (no (unknown) (unknown) Vitals (units (unkno wn) date) unknown) (unknown) (no (unknown) (unknown) Vitamins and (units (u nknown) date) iron, Diet and unknown) weight gain, Fish and mercury intake, Caffeine use, (unknown) (no (unknown) (unknown) WG (units (unkno wn) date) unknown) (unknown) (no (unknown) (unknown) Weeks gestation:: (units (unknown) date) 39 unknown) (unknown) (no (unknown) (unknown) Weight 229 lb (units ( unknown) date) unknown) (unknown) (no (unknown) (unknown) Millis teeth (units (u nknown) date) extracted () unknown) (unknown) (no (unknown) (unknown) Zika virus (units (unk nown) date) exposure: No unknown) (unknown) (no (unknown) (unknown) after she (units (unkn own) date) hydrates. No unknown) persistent cramping, ctx, LOF or VB. Discussed GBS (unknown) (no (unknown) (unknown) alcohol intake: (units (unknown) date) former unknown) (unknown) (no (unknown) (unknown) amh (units (unkno wn) date) unknown) (unknown) (no (unknown) (unknown) and office visits (units (unknown) date) unknown) (unknown) (no (unknown) (unknown) anyone in either (units (unknown) date) family with: unknown) (unknown) (no (unknown) (unknown) at 40 weeks if no (units (unknown) date) labor prior. Will unknown) schedule and call her with a date. (unknown) (no (unknown) (unknown) baby's father had (units (unknown) date) a child with unknown) defects not listed above and Denies Other (unknown) (no (unknown) (unknown) bleeding. She is (units (unknown) date) feeling baby move. unknown) Routine precautions reviewed. (unknown) (no (unknown) (unknown) caffeine: Yes (units ( unknown) date) (aware of 200mg unknown) daily limit) (unknown) (no (unknown) (unknown) carbon monox (units (u nknown) date) detector in home: unknown) Yes (unknown) (no (unknown) (unknown) child) (units (unkno wn) date) unknown) (unknown) (no (unknown) (unknown) concerns with (units ( unknown) date) COVID infection unknown) and and urged patient to consider (unknown) (no (unknown) (unknown) consistent with (units (unknown) date) dates. unknown) (unknown) (no (unknown) (unknown) cramping, vaginal (units (unknown) date) bleeding or unknown) leakage of fluid. Doing her Glucola today. (unknown) (no (unknown) (unknown) current (units (unkno wn) date) occupational unknown) exposures/hazards: No (unknown) (no (unknown) (unknown) cy (units (unkno wn) date) unknown) (unknown) (no (unknown) (unknown) cytotec (units (unkno wn) date) unknown) (unknown) (no (unknown) (unknown) daily servings (units (unknown) date) fruits/ve-4 unknown) (unknown) (no (unknown) (unknown) declined referral (units (unknown) date) for unknown) echocardiogram for IVF . (unknown) (no (unknown) (unknown) discussed (units (unkn own) date) increased fiber in unknown) diet. May use MiraLax. No uterine type cramping, (unknown) (no (unknown) (unknown) discussed with (units (unknown) date) the patient. unknown) Patient is not COVID vaccinated. Discussed (unknown) (no (unknown) (unknown) disorders, Denies (units (unknown) date) Cystic Fibrosis, unknown) Denies Mental Retardation/Autism , Denies (unknown) (no (unknown) (unknown) do you feel safe (units (unknown) date) at home: Yes unknown) (unknown) (no (unknown) (unknown) drops of urine, (units (unknown) date) does feel it is unknown) from the bladder. No vaginal leakage of fluid (unknown) (no (unknown) (unknown) during the past (units (unknown) date) year weight has: unknown) decreased > 10 lbs (lost 30 lbs) (unknown) (no (unknown) (unknown) e (units (unkno wn) date) unknown) (unknown) (no (unknown) (unknown) eating out: (units (un known) date) rarely or never unknown) (unknown) (no (unknown) (unknown) ed 1wk (units (unkno wn) date) unknown) (unknown) (no (unknown) (unknown) education level: (units (unknown) date) college unknown) (unknown) (no (unknown) (unknown) enies Epifanio-Sachs (units (unknown) date) (Ashkenazi Quaker, unknown) [place], [place]), Denies Nadja (unknown) (no (unknown) (unknown) exposure (units (unkno wn) date) discussed, CMV unknown) discussed, Toxoplasmosis precautions, Listeriosis (unknown) (no (unknown) (unknown) exposure, (units (unkn own) date) Medication use, unknown) Sauna/hot tub use, Dental care and Travel (unknown) (no (unknown) (unknown) feeling some less (units (unknown) date) movement, but she unknown) does kick counts and gets enough kicks, then (unknown) (no (unknown) (unknown) feeling some upper (units (unknown) date) discomfort when unknown) standing, but some muscle support tape to try (unknown) (no (unknown) (unknown) feels better with (units (unknown) date) using this when on unknown) her feet. Feeling good movement. No (unknown) (no (unknown) (unknown) movement (units (unknown) date) and denies VB, unknown) LOF. Growth US showed normal OGMEZ 18.6 and growth (unknown) (no (unknown) (unknown) movement (units (unknown) date) daily. GBS screen unknown) collected. She desired a cervical check. Will (unknown) (no (unknown) (unknown) fire extinguisher (units (unknown) date) in home: No unknown) (unknown) (no (unknown) (unknown) firearms in home: (units (unknown) date) No unknown) (unknown) (no (unknown) (unknown) frequency: does (units (unknown) date) not exercise unknown) (unknown) (no (unknown) (unknown) frequent, then to (units (unknown) date) call. Occasionally unknown) feeling vaginal pressure when she sits, (unknown) (no (unknown) (unknown) getting the (units (un known) date) vaccine in unknown) . (unknown) (no (unknown) (unknown) growth US ordered (units (unknown) date) @36wks unknown) (unknown) (no (unknown) (unknown) have occurred. If (units (unknown) date) there are any unknown) questions, please contact the Medical Records (unknown) (no (unknown) (unknown) having a girl (units ( unknown) date) unknown) (unknown) (no (unknown) (unknown) her in for NST. (units (unknown) date) Feels some cramps unknown) in the morning after wakening, then results (unknown) (no (unknown) (unknown) here. No other (units (unknown) date) problems. Feeling unknown) good movement. No contractions, (unknown) (no (unknown) (unknown) household (units (unkn own) date) members: spouse unknown) (unknown) (no (unknown) (unknown) housing: house (units (unknown) date) unknown) (unknown) (no (unknown) (unknown) if she does ever (units (unknown) date) feel significantly unknown) less, then definitely call and will bring (unknown) (no (unknown) (unknown) in the 56%. The (units (unknown) date) cervical canal was unknown) not well seen. She reports [place] and (unknown) (no (unknown) (unknown) irritability, (units ( unknown) date) bloating and other unknown) (headaches + constipation) (unknown) (no (unknown) (unknown) leakage of fluid, (units (unknown) date) vaginal bleeding unknown) or abnormal vaginal discharge. Feeling (unknown) (no (unknown) (unknown) marital status: (units (unknown) date) unknown) (unknown) (no (unknown) (unknown) may occur. (units (unk nown) date) Occasional unknown) wrong-word or 'sound-alike' substitutions may have (unknown) (no (unknown) (unknown) medication (units (unk nown) date) options during unknown) labor. Tdap given today. (unknown) (no (unknown) (unknown) musculoskeletal (units (unknown) date) discomforts of unknown) , especially by the end of the day. No (unknown) (no (unknown) (unknown) needed. (units (unkno wn) date) unknown) (unknown) (no (unknown) (unknown) normal Glucola, (units (unknown) date) hemoglobin was unknown) 11.8. Questions answered regarding pain (unknown) (no (unknown) (unknown) noted cramping, (units (unknown) date) contractions, unknown) vaginal bleeding or leakage of fluid. She had a (unknown) (no (unknown) (unknown) nothing (units (unkno wn) date) persistent. unknown) Feeling good movement. Occasionally leaking few (unknown) (no (unknown) (unknown) number of (units (unkn own) date) children: 0 unknown) (unknown) (no (unknown) (unknown) occasional (units (unk nown) date) irregular stronger unknown) contractions, but nothing regular. Reviewed labor (unknown) (no (unknown) (unknown) occupational (units (u nknown) date) status: unemployed unknown) (unknown) (no (unknown) (unknown) occurred due to (units (unknown) date) the inherent unknown) limitations of voice recognition software. Please (unknown) (no (unknown) (unknown) or bleeding. No (units (unknown) date) persistent unknown) cramping. Ultrasound for EFW today due to IVF (unknown) (no (unknown) (unknown) other problems. (units (unknown) date) Overall sleeping unknown) well. She felt a little cramping which (unknown) (no (unknown) (unknown) other problems. (units (unknown) date) Tried 1 Colace unknown) daily without improvement. Discussed increase (unknown) (no (unknown) (unknown) pets and animals: (units (unknown) date) Yes (2 dogs) unknown) (unknown) (no (unknown) (unknown) . EFW 44 (units (unknown) date) percentile, 2022 unknown) g, 4 lb 7 oz. GOMEZ 14.6. (unknown) (no (unknown) (unknown) prenat.vits,emilia,m (units (unknown) date) [id number] 1 unknown) tab PO DAILY 11/27/21 [History Confirmed (unknown) (no (unknown) (unknown) prevention and (units (unknown) date) Rubella unknown) Immunization (unknown) (no (unknown) (unknown) pt here for ob (units (unknown) date) check unknown) (unknown) (no (unknown) (unknown) read the note (units ( unknown) date) carefully and unknown) recognize, using context, where these substitutions (unknown) (no (unknown) (unknown) recheck a growth (units (unknown) date) ultrasound, unknown) ordered, for IVF . (unknown) (no (unknown) (unknown) resolve, only has (units (unknown) date) felt an occasional unknown) contraction. No LOF or VB. Feeling good (unknown) (no (unknown) (unknown) reviewed had a (units (unknown) date) palpate for unknown) contractions, and if having every 10 minutes or more (unknown) (no (unknown) (unknown) reviewed, (units (unkn own) date) coverage 24 hours unknown) a day and participation of father in care (unknown) (no (unknown) (unknown) routine (units ( unknown) date) movement. She will unknown) do her Glucola/H/H next visit. Offered, (unknown) (no (unknown) (unknown) s/sx and when to (units (unknown) date) call. GBS was unknown) negative. No concerns. F/u in 1 week or as (unknown) (no (unknown) (unknown) screen next (units (un known) date) visit. unknown) (unknown) (no (unknown) (unknown) seatbelt use: (units ( unknown) date) always unknown) (unknown) (no (unknown) (unknown) second hand (units (un known) date) exposure: No unknown) (unknown) (no (unknown) (unknown) she is feeling (units ( unknown) date) [place] Joy or unknown) the baby, when feels tight in the upper abdomen. (unknown) (no (unknown) (unknown) software. 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 No LOF or (unknown) (no (unknown) (unknown) special donna (units ( unknown) date) needs: No unknown) (unknown) (no (unknown) (unknown) substance use (units ( unknown) date) type: does not use unknown) (unknown) (no (unknown) (unknown) to 2 daily. After (units (unknown) date) review, may need unknown) to increase water intake recently, and (unknown) (no (unknown) (unknown) to use as an (units (u nknown) date) abdominal binder. unknown) Will try to fit her for an abdominal binder (unknown) (no (unknown) (unknown) travel history: (units (unknown) date) recent ([place] unknown) 12/2020) (unknown) (no (unknown) (unknown) water heater temp (units (unknown) date) set < 120 deg: No unknown) (unsure) (unknown) (no (unknown) (unknown) well-balanced (units ( unknown) date) diet: about half unknown) the time (unknown) (no (unknown) (unknown) working smoke (units ( unknown) date) detector in home: unknown) Yes Result panel 341 (unknown) (no (unknown) (unknown) (no value) (units (unk nown) date) unknown) (unknown) (no (unknown) (unknown) (+18 lb) 102/68 N (units (unknown) date) unknown) (unknown) (no (unknown) (unknown) (+26 lb) 128/72 N (units (unknown) date) unknown) (unknown) (no (unknown) (unknown) (+3 lb) 110/70 N (units (unknown) date) unknown) (unknown) (no (unknown) (unknown) (+32 lb) 110/72 1 (units (unknown) date) unknown) (unknown) (no (unknown) (unknown) (+36 lb) 114/64 N (units (unknown) date) unknown) (unknown) (no (unknown) (unknown) (+39 lb) 104/70 (units (unknown) date) TR unknown) (unknown) (no (unknown) (unknown) (+43 lb) 122/68 (units (unknown) date) TR unknown) (unknown) (no (unknown) (unknown) (+45 lb) 116/68 (units (unknown) date) TR unknown) (unknown) (no (unknown) (unknown) (+47 lb) 122/72 N (units (unknown) date) unknown) (unknown) (no (unknown) (unknown) (+49 lb) 128/70 (units (unknown) date) unknown) (unknown) (no (unknown) (unknown) (+6 lb) 104/66 TR (units (unknown) date) unknown) (unknown) (no (unknown) (unknown) (+9 lb) 108/78 N (units (unknown) date) unknown) (unknown) (no (unknown) (unknown) Genetic (units (unkn own) date) Screening/Teratolo unknown) gy Counseling - Includes patient, baby's father, or (unknown) (no (unknown) (unknown) -?-?-?-?-?-?-?-?- (units (unknown) date) ?-?-?-? unknown) (unknown) (no (unknown) (unknown) 12/08/2021 (units (unk nown) date) Caceres viable unknown) intrauterine gestation size equal to dates (unknown) (no (unknown) (unknown) 12/08/21 (units (unkno wn) date) unknown) (unknown) (no (unknown) (unknown) 01/05/22 (units (unkno wn) date) unknown) (unknown) (no (unknown) (unknown) 02/02/22 (units (unkno wn) date) unknown) (unknown) (no (unknown) (unknown) 02/17/19 8 (units (unk nown) date) spontaneous unknown) (unknown) (no (unknown) (unknown) 02/28/22 (units (unkno wn) date) unknown) (unknown) (no (unknown) (unknown) 07:58 (units (unkno wn) date) unknown) (unknown) (no (unknown) (unknown) 03/28/22 (units (unkno wn) date) unknown) (unknown) (no (unknown) (unknown) 04/25/22 (units (unkno wn) date) unknown) (unknown) (no (unknown) (unknown) 05/10/22 (units (unkno wn) date) unknown) (unknown) (no (unknown) (unknown) 05/24/22 (units (unkno wn) date) unknown) (unknown) (no (unknown) (unknown) 06/07/22 (units (unkno wn) date) unknown) (unknown) (no (unknown) (unknown) 06/15/22 (units (unkno wn) date) unknown) (unknown) (no (unknown) (unknown) 10w 6d 183 lb (units ( unknown) date) unknown) (unknown) (no (unknown) (unknown) 06/21/22 (units (unkno wn) date) unknown) (unknown) (no (unknown) (unknown) 06/28/22 (units (unkno wn) date) unknown) (unknown) (no (unknown) (unknown) 06/28/22] (units (unkn own) date) unknown) (unknown) (no (unknown) (unknown) 07/01/22 (units (unkno wn) date) Ultrasound #1 39w unknown) 4d (unknown) (no (unknown) (unknown) 14w 6d 186 lb (units ( unknown) date) unknown) (unknown) (no (unknown) (unknown) 18w 6d 189 lb (units ( unknown) date) unknown) (unknown) (no (unknown) (unknown) 22w 4d 198 lb (units ( unknown) date) unknown) (unknown) (no (unknown) (unknown) 26w 4d 206 lb (units ( unknown) date) unknown) (unknown) (no (unknown) (unknown) 26wk4d. Pt with (units (unknown) date) some abdominal unknown) musculoskeletal discomfort, lower and (unknown) (no (unknown) (unknown) [id number], IVF (units ( unknown) date) , at unknown) 22wks here for DANYELLE visit. Constipation, no (unknown) (no (unknown) (unknown) 27yo (units (unkn own) date) presents for DANYELLE unknown) visit @ 36wk5d. She reports some normal (unknown) (no (unknown) (unknown) 2wk (units (unkno wn) date) unknown) (unknown) (no (unknown) (unknown) 30w 4d 212 lb (units ( unknown) date) unknown) (unknown) (no (unknown) (unknown) 32w 5d 216 lb (units ( unknown) date) unknown) (unknown) (no (unknown) (unknown) 32wk5d. Trini (units (unknown) date) questions how to unknown) feel contractions, uncertain at times if (unknown) (no (unknown) (unknown) 34w 5d 219 lb (units ( unknown) date) unknown) (unknown) (no (unknown) (unknown) 36w 5d 223 lb (units ( unknown) date) unknown) (unknown) (no (unknown) (unknown) 37w 6d 225 lb (units ( unknown) date) unknown) (unknown) (no (unknown) (unknown) 38w 5d 227 lb (units ( unknown) date) unknown) (unknown) (no (unknown) (unknown) 39w 5d 229 lb (units ( unknown) date) unknown) (unknown) (no (unknown) (unknown) [id number] (units (unkno wn) date) unknown) (unknown) (no (unknown) (unknown) 57 (units (unkno wn) date) unknown) (unknown) (no (unknown) (unknown) Abnormal Pap (units (u nknown) date) smear of cervix unknown) (-2013) (unknown) (no (unknown) (unknown) Abnormal lab (units (u nknown) date) values 1st unknown) trimester: discussed (unknown) (no (unknown) (unknown) Add'l Plan (units (unk nown) date) Details unknown) (unknown) (no (unknown) (unknown) Age/Sex: 27 / F (units (unknown) date) Date of Service: unknown) (unknown) (no (unknown) (unknown) Allergies (units (unkn own) date) unknown) (unknown) (no (unknown) (unknown) [place], [place] (units ( unknown) date) [id number] unknown) (unknown) (no (unknown) (unknown) Anesthesia (units (unk nown) date) unknown) (unknown) (no (unknown) (unknown) Aneuploidy (units (unk nown) date) Screening Offered: unknown) Declined (unknown) (no (unknown) (unknown) Anticipated (units (un known) date) course of unknown) care: discussed (unknown) (no (unknown) (unknown) Assessment and (units (unknown) date) Plan unknown) (unknown) (no (unknown) (unknown) Attending Dr: Lynne (units (unknown) date) Sirisha Campuzano MD unknown) (unknown) (no (unknown) (unknown) BMI 40.5 (units (unkno wn) date) unknown) (unknown) (no (unknown) (unknown) BP 128/70 (units (unkn own) date) unknown) (unknown) (no (unknown) (unknown) (units (unkno wn) date) Plan/Preferences unknown) (unknown) (no (unknown) (unknown) Planning (units (unknown) date) unknown) (unknown) (no (unknown) (unknown) Blood Pressure (units (unknown) date) Location Rt unknown) brachial (unknown) (no (unknown) (unknown) Blood (units (unkno wn) date) transfusions?: yes unknown) (never had but willing to accept) (unknown) (no (unknown) (unknown) Breastfeed Preg (units (unknown) date) Comp Name unknown) (unknown) (no (unknown) (unknown) Childbirth (units (unk nown) date) Classes: discussed unknown) (unknown) (no (unknown) (unknown) Chlamydia (units (unkno wn) date) Gonorrhea PCR unknown) -URINE Today Z34.83 - Encounter for supervision of other (unknown) (no (unknown) (unknown) Current Estimate (units (unknown) date) 06/30/22 Manual unknown) 39w 5d IVF pregnan (unknown) (no (unknown) (unknown) Current (units (unknown) date) History unknown) (unknown) (no (unknown) (unknown) : 1995 (units (unknown) date) Acct:[id number] unknown) (unknown) (no (unknown) (unknown) Date of positive (units (unknown) date) home unknown) test: 10/16/21 (unknown) (no (unknown) (unknown) Date (units (unkno wn) date) unknown) (unknown) (no (unknown) (unknown) Del. Date (units (unkn own) date) GA/Weeks Labor unknown) Lgth Wt Sex Route Outcome Anesthesia Place (unknown) (no (unknown) (unknown) Delivery Date: (units (unknown) date) 02/17/19 Last unknown) Updated by: Juhi Hayes R.N. (unknown) (no (unknown) (unknown) Delv (units (unkno wn) date) unknown) (unknown) (no (unknown) (unknown) Denies Congenital (units (unknown) date) Heart Defect, unknown) Denies Down Syndrome, Denies Muscular Dystrophy, (unknown) (no (unknown) (unknown) Denies Maternal (units (unknown) date) Metabolic Disorder unknown) (EG,TYPE 1 Diabetes, PKU), Denies Patient or (unknown) (no (unknown) (unknown) Denies Neural (units ( unknown) date) Tube Defect unknown) (Meningomyelocele, Spina Bifida, or Anencephaly), (unknown) (no (unknown) (unknown) Denies Sickle (units ( unknown) date) Cell Disease or unknown) Trait (), Denies Hemophilia or other blood (unknown) (no (unknown) (unknown) Denies Epifanio-Sachs (units (unknown) date) (Ashkenazi Quaker, unknown) [place], [place]ian), Denies Nadja (unknown) (no (unknown) (unknown) Denies other (units (u nknown) date) unknown) (unknown) (no (unknown) (unknown) Denies over the (units (unknown) date) counter unknown) medications, Denies alcohol, Denies illicit drugs and (unknown) (no (unknown) (unknown) Depression: (units (un known) date) discussed unknown) (unknown) (no (unknown) (unknown) Dept at (units (unkno wn) date) . 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), (unknown) (no (unknown) (unknown) Documented By: (units (unknown) date) Lynne Campuzano unknown) 06/28/22 07 (unknown) (no (unknown) (unknown) Draft (units (unkno wn) date) unknown) (unknown) (no (unknown) (unknown) LORY Calculator (units (unknown) date) unknown) (unknown) (no (unknown) (unknown) EGA Weight BP (units ( unknown) date) UGlucose unknown) (unknown) (no (unknown) (unknown) Encounter for in (units (unknown) date) vitro unknown) fertilization () (unknown) (no (unknown) (unknown) Estimated (units (unkn own) date) Delivery Date unknown) Method Current (unknown) (no (unknown) (unknown) Exercise and (units (u nknown) date) activity, unknown) work/environmental /hazards, Sexual activity, X-ray (unknown) (no (unknown) (unknown) Expected Delivery (units (unknown) date) Route/Plan unknown) (unknown) (no (unknown) (unknown) FM returns to a (units (unknown) date) lot of normal unknown) movement. On exam today, FM seen. Advised her, (unknown) (no (unknown) (unknown) Family History (units (unknown) date) (Updated 01/04/22 unknown) @ 23:06 by Paris Davalos) (unknown) (no (unknown) (unknown) Father of Baby: (units (unknown) date) [place] unknown) (unknown) (no (unknown) (unknown) [facility]) (unknown) (no (unknown) (unknown) First Trimester (units (unknown) date) Education unknown) Checklist (unknown) (no (unknown) (unknown) (units (unkno wn) date) unknown) (unknown) (no (unknown) (unknown) Genetic Screening (units (unknown) date) + Counseling unknown) (unknown) (no (unknown) (unknown) Genetic Screening (units (unknown) date) unknown) (unknown) (no (unknown) (unknown) Grandfather (units (un known) date) Diabetes mellitus unknown) (unknown) (no (unknown) (unknown) Grandmother (units (un known) date) Breast cancer unknown) (unknown) (no (unknown) (unknown) Grandmother (units (un known) date) Hypertension unknown) (unknown) (no (unknown) (unknown) 2 (units (unkn own) date) Multiple births unknown) (unknown) (no (unknown) (unknown) HIV risk (units (unkno wn) date) evaluation: low unknown) risk (unknown) (no (unknown) (unknown) Health Center (units ( unknown) date) Education unknown) (unknown) (no (unknown) (unknown) Health center (units ( unknown) date) information: unknown) nature of practice discussed, visit schedule (unknown) (no (unknown) (unknown) Height 5 ft 3 in (units (unknown) date) unknown) (unknown) (no (unknown) (unknown) Hepatitis C risk (units (unknown) date) evaluation: low unknown) risk (unknown) (no (unknown) (unknown) Here for a DANYELLE (units (unknown) date) visit @ 38wk5d. unknown) She denies any problems. 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) unknown) (unknown) (no (unknown) (unknown) Nemo's (units (u nknown) date) Chorea, Denies unknown) Other inherited genetic or chromosomal disorder, (unknown) (no (unknown) (unknown) Hx # (units (u nknown) date) Pregnancies unknown) Elective abortions (unknown) (no (unknown) (unknown) Hx # Term (units (unkn own) date) Pregnancies unknown) Ectopic pregnancies (unknown) (no (unknown) (unknown) Hx of (units (unkno wn) date) tonsillectomy unknown) () (unknown) (no (unknown) (unknown) IVF for this (units (u nknown) date) , unknown) declined Echo 02/28/22 32 wk growth US 44%, f/u (unknown) (no (unknown) (unknown) Infection History (units (unknown) date) unknown) (unknown) (no (unknown) (unknown) Infection history (units (unknown) date) comments: needs unknown) flu + covid vaccines (unknown) (no (unknown) (unknown) Infectious (units (unk nown) date) Disease Education unknown) (unknown) (no (unknown) (unknown) Infectious (units (unk nown) date) disease exposure: unknown) chicken pox immunity discussed, tuberculosis (unknown) (no (unknown) (unknown) 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) unknown) (unknown) (no (unknown) (unknown) Initial Weight: (units (unknown) date) 180 lb unknown) (unknown) (no (unknown) (unknown) Initials (units (unkno wn) date) unknown) (unknown) (no (unknown) (unknown) Intake Clinical (units (unknown) date) Staff unknown) (unknown) (no (unknown) (unknown) Intake Note: (units (u nknown) date) unknown) (unknown) (no (unknown) (unknown) Intake performed (units (unknown) date) by: unknown) Elba Hopson (unknown) (no (unknown) (unknown) Intake (units (unkno wn) date) unknown) (unknown) (no (unknown) (unknown) Trini presents (units (unknown) date) today for routine unknown) OB visit at 37w6d. 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) () (unknown) (no (unknown) (unknown) Marital status: (units (unknown) date) unknown) (unknown) (no (unknown) (unknown) Medical History (units (unknown) date) (Updated 02/28/22 unknown) @ 08:37 by Lynne Campuzano MD) (unknown) (no (unknown) (unknown) Medications (units (un known) date) unknown) (unknown) (no (unknown) (unknown) Mother (units (unkno wn) date) Hypertension unknown) (unknown) (no (unknown) (unknown) N 140 15 4wk (units (u nknown) date) unknown) (unknown) (no (unknown) (unknown) N Yes 142 19 girl (units (unknown) date) 4wk unknown) (unknown) (no (unknown) (unknown) N Yes 149 39 (units (u nknown) date) Vertex absent unknown) 0/20% 1wk (unknown) (no (unknown) (unknown) N Yes no 140 (units (u nknown) date) Vertex absent 2wk unknown) (unknown) (no (unknown) (unknown) N Yes no 143 22 (units (unknown) date) absent 4wk unknown) (unknown) (no (unknown) (unknown) N Yes no 144 27 (units (unknown) date) absent 4 wk unknown) (unknown) (no (unknown) (unknown) N Yes no 144 (units (u nknown) date) Vertex absent EFW unknown) 44%, GOMEZ 14 (unknown) (no (unknown) (unknown) N Yes no 145 30 (units (unknown) date) absent 4wk unknown) (unknown) (no (unknown) (unknown) N Yes no 148 37 (units (unknown) date) Vertex absent unknown) 0/long order (unknown) (no (unknown) (unknown) N Yes yes 144 38 (units (unknown) date) Vertex absent GBS unknown) negativ (unknown) (no (unknown) (unknown) NF (units (unkno wn) date) unknown) (unknown) (no (unknown) (unknown) No Known Drug (units ( unknown) date) Allergies Allergy unknown) (Unverified 06/28/22 07:57) (unknown) (no (unknown) (unknown) No vaginal (units (unk nown) date) bleeding. No unknown) change in vaginal discharge. No fevers. No vaginal (unknown) (no (unknown) (unknown) Notes (units (unkno wn) date) unknown) (unknown) (no (unknown) (unknown) Number of Living (units (unknown) date) Children unknown) (unknown) (no (unknown) (unknown) Number of (units (unkn own) date) fetuses:: Single unknown) (unknown) (no (unknown) (unknown) Nutrition and (units ( unknown) date) weight gain unknown) counseling: special diet: discussed (unknown) (no (unknown) (unknown) OB Office Visit (units (unknown) date) unknown) (unknown) (no (unknown) (unknown) OB Visit Log (units (u nknown) date) unknown) (unknown) (no (unknown) (unknown) On control (units (unknown) date) at conception?: No unknown) (IVF) (unknown) (no (unknown) (unknown) Orders (units (unkno wn) date) unknown) (unknown) (no (unknown) (unknown) Orders: (units (unkno wn) date) unknown) (unknown) (no (unknown) (unknown) Other Estimates (units (unknown) date) 06/26/22 LMP unknown) (Certain) 40w 2d (unknown) (no (unknown) (unknown) PFSH (units (unkno wn) date) unknown) (unknown) (no (unknown) (unknown) Para 0 (units (unkno wn) date) Spontaneous unknown) abortions 1 (unknown) (no (unknown) (unknown) Partner history (units (unknown) date) of STD: denies hx unknown) (unknown) (no (unknown) (unknown) Partner history (units (unknown) date) of genital herpes: unknown) No (unknown) (no (unknown) (unknown) Partner: Bebeto (units (unknown) date) Gerda unknown) (unknown) (no (unknown) (unknown) Past Pregnancies (units (unknown) date) unknown) (unknown) (no (unknown) (unknown) Patient is (units (unk nown) date) feeling well. Some unknown) mild cramping. No bleeding. No fevers. (unknown) (no (unknown) (unknown) Patient is (units (unk nown) date) feeling well. Some unknown) pressure sensation but no other concerns. (unknown) (no (unknown) (unknown) Patient's age 35 (units (unknown) date) years or older as unknown) of estimated date of delivery: No (unknown) (no (unknown) (unknown) Patient: (units (unkno wn) date) Trini Lorenz unknown) MR#: [id number] (unknown) (no (unknown) (unknown) Personal history (units (unknown) date) of STD: HPV (2015) unknown) (unknown) (no (unknown) (unknown) Personal history (units (unknown) date) of genital herpes: unknown) No (unknown) (no (unknown) (unknown) Position Sitting (units (unknown) date) unknown) (unknown) (no (unknown) (unknown) History (units (unknown) date) unknown) (unknown) (no (unknown) (unknown) type:: (units (unknown) date) Other Normal unknown) (unknown) (no (unknown) (unknown) (units (unkno wn) date) Education unknown) (unknown) (no (unknown) (unknown) Initial (units (unknown) date) Assessment unknown) (unknown) (no (unknown) (unknown) Specific (units (unknown) date) Issues/Plans unknown) (unknown) (no (unknown) (unknown) Testing: (units (unknown) date) discussed unknown) (unknown) (no (unknown) (unknown) Visit (units (unknown) date) unknown) (unknown) (no (unknown) (unknown) (units (unkno wn) date) education packet: unknown) Child education/plan, symptoms, (unknown) (no (unknown) (unknown) Primary Care (units (u nknown) date) Provider: Britt unknown) Sharmaine (unknown) (no (unknown) (unknown) Primary Ob (units (unk nown) date) Provider: unknown) Lynne Campuzano (unknown) (no (unknown) (unknown) Prior (units (unkno wn) date) GBS-Infected unknown) child: No (unknown) (no (unknown) (unknown) Providers (units (unkn own) date) unknown) (unknown) (no (unknown) (unknown) Quad screen nml (units (unknown) date) unknown) (unknown) (no (unknown) (unknown) DANYELLE visit 34wk5d. (units (unknown) date) Feeling well. She unknown) reports sometimes a few days of (unknown) (no (unknown) (unknown) DANYELLE@30wk4d. She (units (unknown) date) denies any unknown) problems. She bought an abdominal binder and (unknown) (no (unknown) (unknown) Rash or viral (units ( unknown) date) illness since last unknown) menstrual period: No (unknown) (no (unknown) (unknown) Reason For Visit (units (unknown) date) unknown) (unknown) (no (unknown) (unknown) Recent travel (units ( unknown) date) outside of unknown) country?: No (unknown) (no (unknown) (unknown) Recurrent (units (unkn own) date) loss or unknown) a stillbirth: No (unknown) (no (unknown) (unknown) Routine (units (unkno wn) date) precautions and unknown) normal physiological changes of (unknown) (no (unknown) (unknown) Routine (units (unkno wn) date) precautions unknown) reviewed. (unknown) (no (unknown) (unknown) Rubella nonimmune (units (unknown) date) immunize unknown) (unknown) (no (unknown) (unknown) S/P LEEP (loop (units (unknown) date) electrosurgical unknown) excision procedure) () (unknown) (no (unknown) (unknown) Safety (units (unkno wn) date) unknown) (unknown) (no (unknown) (unknown) Signed By: (units (unk nown) date) unknown) (unknown) (no (unknown) (unknown) Smoking Status: (units (unknown) date) Never smoker unknown) (unknown) (no (unknown) (unknown) Smoking/Tobacco (units (unknown) date) use: discussed unknown) (unknown) (no (unknown) (unknown) Social History (units (unknown) date) unknown) (unknown) (no (unknown) (unknown) Surgical History (units (unknown) date) (Updated 01/04/22 unknown) @ 23:05 by Paris Davalos) (unknown) (no (unknown) (unknown) Symptoms since (units (unknown) date) LMP: Reports unknown) amenorrhea, nausea, fatigue, urinary frequency, (unknown) (no (unknown) (unknown) TR 174 11 4wk (units ( unknown) date) unknown) (unknown) (no (unknown) (unknown) Tdap status: (units (u nknown) date) immunized unknown) (unknown) (no (unknown) (unknown) Teratogen (units (unkn own) date) Exposures since unknown) LMP/Conception: Denies prescription medications, (unknown) (no (unknown) (unknown) Testing Education (units (unknown) date) unknown) (unknown) (no (unknown) (unknown) Testing education (units (unknown) date) completed: Genetic unknown) testing, group B strep and Cell Free DNA (unknown) (no (unknown) (unknown) This note may (units ( unknown) date) have been all or unknown) partially generated using voice recognition (unknown) (no (unknown) (unknown) Tobacco + (units (unkn own) date) Substance Use unknown) (unknown) (no (unknown) (unknown) Tobacco Status (units (unknown) date) unknown) (unknown) (no (unknown) (unknown) Trimester:: 3rd (units (unknown) date) Trimester unknown) (28wks-Del) (unknown) (no (unknown) (unknown) Type(s) of (units (unk nown) date) exercise: none unknown) (unknown) (no (unknown) (unknown) Typically feels (units (unknown) date) in the a.m.. Only unknown) feeling occasionally, nothing routinely. I (unknown) (no (unknown) (unknown) UProtein Movement (units (unknown) date) PreLabor FHR Fndl unknown) Ht Pres Edema Cerv Exam US/Comment Next Appt (unknown) (no (unknown) (unknown) Ultrasound (units (unk nown) date) Details:: Prior 7 unknown) week 3 day ultrasound at IVF on 11/15/21 clinic (unknown) (no (unknown) (unknown) Ultrasound (units (unk nown) date) unknown) (unknown) (no (unknown) (unknown) VB. Feeling good (units (unknown) date) movement. On unknown) discussion, she desire induction of labor (unknown) (no (unknown) (unknown) Vaginal (units (unkno wn) date) unknown) (unknown) (no (unknown) (unknown) Varicella/chicken (units (unknown) date) pox status: unknown) immunized and previous disease (mild case as (unknown) (no (unknown) (unknown) Visit Date: (units (un known) date) 12/08/21 Last unknown) Updated by: Carrie Pichardo MD (unknown) (no (unknown) (unknown) Visit Date: (units (un known) date) 01/05/22 Last unknown) Updated by: Carrie Pichardo MD (unknown) (no (unknown) (unknown) Visit Date: (units (un known) date) 02/02/22 Last unknown) Updated by: Crarie Pichardo MD (unknown) (no (unknown) (unknown) Visit Date: (units (un known) date) 02/28/22 Last unknown) Updated by: Lynne Campuzano MD (unknown) (no (unknown) (unknown) Visit Date: (units (un known) date) 03/28/22 Last unknown) Updated by: Lynne Campuzano MD (unknown) (no (unknown) (unknown) Visit Date: (units (un known) date) 04/25/22 Last unknown) Updated by: Lynne Campuzano MD (unknown) (no (unknown) (unknown) Visit Date: (units (un known) date) 05/10/22 Last unknown) Updated by: Lynne Campuzano MD (unknown) (no (unknown) (unknown) Visit Date: (units (un known) date) 05/24/22 Last unknown) Updated by: Lynne Campuzano MD (unknown) (no (unknown) (unknown) Visit Date: (units (un known) date) 06/07/22 Last unknown) Updated by: Lynne Campuzano MD (unknown) (no (unknown) (unknown) Visit Date: (units (un known) date) 06/15/22 Last unknown) Updated by: Kacy Palomo P.A-C (unknown) (no (unknown) (unknown) Visit Date: (units (un known) date) 06/21/22 Last unknown) Updated by: Lynne Campuzano MD (unknown) (no (unknown) (unknown) Visit Reasons: OB (units (unknown) date) check unknown) (unknown) (no (unknown) (unknown) Vitals (units (unkno wn) date) unknown) (unknown) (no (unknown) (unknown) Vitamins and (units (u nknown) date) iron, Diet and unknown) weight gain, Fish and mercury intake, Caffeine use, (unknown) (no (unknown) (unknown) WG (units (unkno wn) date) unknown) (unknown) (no (unknown) (unknown) Weeks gestation:: (units (unknown) date) 39 unknown) (unknown) (no (unknown) (unknown) Weight 229 lb (units ( unknown) date) unknown) (unknown) (no (unknown) (unknown) Millis teeth (units (u nknown) date) extracted () unknown) (unknown) (no (unknown) (unknown) Yes no 0/long (units ( unknown) date) unknown) (unknown) (no (unknown) (unknown) Zika virus (units (unk nown) date) exposure: No unknown) (unknown) (no (unknown) (unknown) after she (units (unkn own) date) hydrates. No unknown) persistent cramping, ctx, LOF or VB. Discussed GBS (unknown) (no (unknown) (unknown) alcohol intake: (units (unknown) date) former unknown) (unknown) (no (unknown) (unknown) amh (units (unkno wn) date) unknown) (unknown) (no (unknown) (unknown) and office visits (units (unknown) date) unknown) (unknown) (no (unknown) (unknown) anyone in either (units (unknown) date) family with: unknown) (unknown) (no (unknown) (unknown) at 40 weeks if no (units (unknown) date) labor prior. Will unknown) schedule and call her with a date. (unknown) (no (unknown) (unknown) baby's father had (units (unknown) date) a child with unknown) defects not listed above and Denies Other (unknown) (no (unknown) (unknown) bleeding. She is (units (unknown) date) feeling baby move. unknown) Routine precautions reviewed. (unknown) (no (unknown) (unknown) caffeine: Yes (units ( unknown) date) (aware of 200mg unknown) daily limit) (unknown) (no (unknown) (unknown) carbon monox (units (u nknown) date) detector in home: unknown) Yes (unknown) (no (unknown) (unknown) child) (units (unkno wn) date) unknown) (unknown) (no (unknown) (unknown) concerns with (units ( unknown) date) COVID infection unknown) and and urged patient to consider (unknown) (no (unknown) (unknown) consistent with (units (unknown) date) dates. unknown) (unknown) (no (unknown) (unknown) cramping, vaginal (units (unknown) date) bleeding or unknown) leakage of fluid. Doing her Glucola today. (unknown) (no (unknown) (unknown) current (units (unkno wn) date) occupational unknown) exposures/hazards: No (unknown) (no (unknown) (unknown) cy (units (unkno wn) date) unknown) (unknown) (no (unknown) (unknown) cytotec (units (unkno wn) date) unknown) (unknown) (no (unknown) (unknown) daily servings (units (unknown) date) fruits/ve-4 unknown) (unknown) (no (unknown) (unknown) declined referral (units (unknown) date) for unknown) echocardiogram for IVF . (unknown) (no (unknown) (unknown) discussed (units (unkn own) date) increased fiber in unknown) diet. May use MiraLax. No uterine type cramping, (unknown) (no (unknown) (unknown) discussed with (units (unknown) date) the patient. unknown) Patient is not COVID vaccinated. Discussed (unknown) (no (unknown) (unknown) disorders, Denies (units (unknown) date) Cystic Fibrosis, unknown) Denies Mental Retardation/Autism , Denies (unknown) (no (unknown) (unknown) do you feel safe (units (unknown) date) at home: Yes unknown) (unknown) (no (unknown) (unknown) drops of urine, (units (unknown) date) does feel it is unknown) from the bladder. No vaginal leakage of fluid (unknown) (no (unknown) (unknown) during the past (units (unknown) date) year weight has: unknown) decreased > 10 lbs (lost 30 lbs) (unknown) (no (unknown) (unknown) e (units (unkno wn) date) unknown) (unknown) (no (unknown) (unknown) eating out: (units (un known) date) rarely or never unknown) (unknown) (no (unknown) (unknown) ed 1wk (units (unkno wn) date) unknown) (unknown) (no (unknown) (unknown) education level: (units (unknown) date) college unknown) (unknown) (no (unknown) (unknown) exposure (units (unkno wn) date) discussed, CMV unknown) discussed, Toxoplasmosis precautions, Listeriosis (unknown) (no (unknown) (unknown) exposure, (units (unkn own) date) Medication use, unknown) Sauna/hot tub use, Dental care and Travel (unknown) (no (unknown) (unknown) feeling some less (units (unknown) date) movement, but she unknown) does kick counts and gets enough kicks, then (unknown) (no (unknown) (unknown) feeling some upper (units (unknown) date) discomfort when unknown) standing, but some muscle support tape to try (unknown) (no (unknown) (unknown) feels better with (units (unknown) date) using this when on unknown) her feet. Feeling good movement. No (unknown) (no (unknown) (unknown) movement (units (unknown) date) and denies VB, unknown) LOF. Growth US showed normal GOMEZ 18.6 and growth (unknown) (no (unknown) (unknown) movement (units (unknown) date) daily. GBS screen unknown) collected. She desired a cervical check. Will (unknown) (no (unknown) (unknown) fire extinguisher (units (unknown) date) in home: No unknown) (unknown) (no (unknown) (unknown) firearms in home: (units (unknown) date) No unknown) (unknown) (no (unknown) (unknown) frequency: does (units (unknown) date) not exercise unknown) (unknown) (no (unknown) (unknown) frequent, then to (units (unknown) date) call. Occasionally unknown) feeling vaginal pressure when she sits, (unknown) (no (unknown) (unknown) getting the (units (un known) date) vaccine in unknown) . (unknown) (no (unknown) (unknown) growth US ordered (units (unknown) date) @36wks unknown) (unknown) (no (unknown) (unknown) have occurred. If (units (unknown) date) there are any unknown) questions, please contact the Medical Records (unknown) (no (unknown) (unknown) having a girl (units ( unknown) date) unknown) (unknown) (no (unknown) (unknown) her in for NST. (units (unknown) date) Feels some cramps unknown) in the morning after wakening, then results (unknown) (no (unknown) (unknown) here. No other (units (unknown) date) problems. Feeling unknown) good movement. No contractions, (unknown) (no (unknown) (unknown) household (units (unkn own) date) members: spouse unknown) (unknown) (no (unknown) (unknown) housing: house (units (unknown) date) unknown) (unknown) (no (unknown) (unknown) if she does ever (units (unknown) date) feel significantly unknown) less, then definitely call and will bring (unknown) (no (unknown) (unknown) in the 56%. The (units (unknown) date) cervical canal was unknown) not well seen. She reports Bc Joy and (unknown) (no (unknown) (unknown) irritability, (units ( unknown) date) bloating and other unknown) (headaches + constipation) (unknown) (no (unknown) (unknown) leakage of fluid, (units (unknown) date) vaginal bleeding unknown) or abnormal vaginal discharge. Feeling (unknown) (no (unknown) (unknown) marital status: (units (unknown) date) unknown) (unknown) (no (unknown) (unknown) may occur. (units (unk nown) date) Occasional unknown) wrong-word or 'sound-alike' substitutions may have (unknown) (no (unknown) (unknown) medication (units (unk nown) date) options during unknown) labor. Tdap given today. (unknown) (no (unknown) (unknown) musculoskeletal (units (unknown) date) discomforts of unknown) , especially by the end of the day. No (unknown) (no (unknown) (unknown) needed. (units (unkno wn) date) unknown) (unknown) (no (unknown) (unknown) normal Glucola, (units (unknown) date) hemoglobin was unknown) 11.8. Questions answered regarding pain (unknown) (no (unknown) (unknown) normal , (units (unknown) date) third trimester, unknown) Z3A.39 - 39 weeks gestation of (unknown) (no (unknown) (unknown) noted cramping, (units (unknown) date) contractions, unknown) vaginal bleeding or leakage of fluid. She had a (unknown) (no (unknown) (unknown) nothing (units (unkno wn) date) persistent. unknown) Feeling good movement. Occasionally leaking few (unknown) (no (unknown) (unknown) number of (units (unkn own) date) children: 0 unknown) (unknown) (no (unknown) (unknown) occasional (units (unk nown) date) irregular stronger unknown) contractions, but nothing regular. Reviewed labor (unknown) (no (unknown) (unknown) occupational (units (u nknown) date) status: unemployed unknown) (unknown) (no (unknown) (unknown) occurred due to (units (unknown) date) the inherent unknown) limitations of voice recognition software. Please (unknown) (no (unknown) (unknown) or bleeding. No (units (unknown) date) persistent unknown) cramping. Ultrasound for EFW today due to IVF (unknown) (no (unknown) (unknown) other problems. (units (unknown) date) Overall sleeping unknown) well. She felt a little cramping which (unknown) (no (unknown) (unknown) other problems. (units (unknown) date) Tried 1 Colace unknown) daily without improvement. Discussed increase (unknown) (no (unknown) (unknown) pets and animals: (units (unknown) date) Yes (2 dogs) unknown) (unknown) (no (unknown) (unknown) . EFW 44 (units (unknown) date) percentile, 2022 unknown) g, 4 lb 7 oz. GOMEZ 14.6. (unknown) (no (unknown) (unknown) prenat.vits,emilia,m (units (unknown) date) [id number] 1 unknown) tab PO DAILY 11/27/21 [History Confirmed (unknown) (no (unknown) (unknown) prevention and (units (unknown) date) Rubella unknown) Immunization (unknown) (no (unknown) (unknown) pt here for ob (units (unknown) date) check unknown) (unknown) (no (unknown) (unknown) read the note (units ( unknown) date) carefully and unknown) recognize, using context, where these substitutions (unknown) (no (unknown) (unknown) recheck a growth (units (unknown) date) ultrasound, unknown) ordered, for IVF . (unknown) (no (unknown) (unknown) resolve, only has (units (unknown) date) felt an occasional unknown) contraction. No LOF or VB. Feeling good (unknown) (no (unknown) (unknown) reviewed had a (units (unknown) date) palpate for unknown) contractions, and if having every 10 minutes or more (unknown) (no (unknown) (unknown) reviewed, (units (unkn own) date) coverage 24 hours unknown) a day and participation of father in care (unknown) (no (unknown) (unknown) routine (units ( unknown) date) movement. She will unknown) do her Glucola/H/H next visit. Offered, (unknown) (no (unknown) (unknown) s/sx and when to (units (unknown) date) call. GBS was unknown) negative. No concerns. F/u in 1 week or as (unknown) (no (unknown) (unknown) screen next (units (un known) date) visit. unknown) (unknown) (no (unknown) (unknown) seatbelt use: (units ( unknown) date) always unknown) (unknown) (no (unknown) (unknown) second hand (units (un known) date) exposure: No unknown) (unknown) (no (unknown) (unknown) she is feeling (units ( unknown) date) Burton Joy or unknown) the baby, when feels tight in the upper abdomen. (unknown) (no (unknown) (unknown) software. 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 No LOF or (unknown) (no (unknown) (unknown) special donna (units ( unknown) date) needs: No unknown) (unknown) (no (unknown) (unknown) substance use (units ( unknown) date) type: does not use unknown) (unknown) (no (unknown) (unknown) to 2 daily. After (units (unknown) date) review, may need unknown) to increase water intake recently, and (unknown) (no (unknown) (unknown) to use as an (units (u nknown) date) abdominal binder. unknown) Will try to fit her for an abdominal binder (unknown) (no (unknown) (unknown) [facility]: [facility] ([facility] (unknown) (no (unknown) (unknown) water heater temp (units (unknown) date) set < 120 deg: No unknown) (unsure) (unknown) (no (unknown) (unknown) well-balanced (units ( unknown) date) diet: about half unknown) the time (unknown) (no (unknown) (unknown) working smoke (units ( unknown) date) detector in home: unknown) Yes Result panel 342 (unknown) (no (unknown) (unknown) (no value) (units (unk nown) date) unknown) (unknown) (no (unknown) (unknown) (+18 lb) 102/68 N (units (unknown) date) unknown) (unknown) (no (unknown) (unknown) (+26 lb) 128/72 N (units (unknown) date) unknown) (unknown) (no (unknown) (unknown) (+3 lb) 110/70 N (units (unknown) date) unknown) (unknown) (no (unknown) (unknown) (+32 lb) 110/72 1 (units (unknown) date) unknown) (unknown) (no (unknown) (unknown) (+36 lb) 114/64 N (units (unknown) date) unknown) (unknown) (no (unknown) (unknown) (+39 lb) 104/70 (units (unknown) date) TR unknown) (unknown) (no (unknown) (unknown) (+43 lb) 122/68 (units (unknown) date) TR unknown) (unknown) (no (unknown) (unknown) (+45 lb) 116/68 (units (unknown) date) TR unknown) (unknown) (no (unknown) (unknown) (+47 lb) 122/72 N (units (unknown) date) unknown) (unknown) (no (unknown) (unknown) (+49 lb) 128/70 (units (unknown) date) unknown) (unknown) (no (unknown) (unknown) (+6 lb) 104/66 TR (units (unknown) date) unknown) (unknown) (no (unknown) (unknown) (+9 lb) 108/78 N (units (unknown) date) unknown) (unknown) (no (unknown) (unknown) (1) 39 weeks (units (u nknown) date) gestation of unknown) : (unknown) (no (unknown) (unknown) Genetic (units (unkn own) date) Screening/Teratolo unknown) gy Counseling - Includes patient, baby's father, or (unknown) (no (unknown) (unknown) -?-?-?-?-?-?-?-?- (units (unknown) date) ?-?-?-? unknown) (unknown) (no (unknown) (unknown) 12/08/2021 (units (unk nown) date) Caceres viable unknown) intrauterine gestation size equal to dates (unknown) (no (unknown) (unknown) 12/08/21 (units (unkno wn) date) unknown) (unknown) (no (unknown) (unknown) 01/05/22 (units (unkno wn) date) unknown) (unknown) (no (unknown) (unknown) 02/02/22 (units (unkno wn) date) unknown) (unknown) (no (unknown) (unknown) 02/17/19 8 (units (unk nown) date) spontaneous unknown) (unknown) (no (unknown) (unknown) 02/28/22 (units (unkno wn) date) unknown) (unknown) (no (unknown) (unknown) 07:58 (units (unkno wn) date) unknown) (unknown) (no (unknown) (unknown) 03/28/22 (units (unkno wn) date) unknown) (unknown) (no (unknown) (unknown) 04/25/22 (units (unkno wn) date) unknown) (unknown) (no (unknown) (unknown) 05/10/22 (units (unkno wn) date) unknown) (unknown) (no (unknown) (unknown) 05/24/22 (units (unkno wn) date) unknown) (unknown) (no (unknown) (unknown) 06/07/22 (units (unkno wn) date) unknown) (unknown) (no (unknown) (unknown) 06/15/22 (units (unkno wn) date) unknown) (unknown) (no (unknown) (unknown) 10w 6d 183 lb (units ( unknown) date) unknown) (unknown) (no (unknown) (unknown) 06/21/22 (units (unkno wn) date) unknown) (unknown) (no (unknown) (unknown) 06/28/22 0854 (units ( unknown) date) unknown) (unknown) (no (unknown) (unknown) 06/28/22 (units (unkno wn) date) unknown) (unknown) (no (unknown) (unknown) 06/28/22] (units (unkn own) date) unknown) (unknown) (no (unknown) (unknown) 07/01/22 (units (unkno wn) date) Ultrasound #1 39w unknown) 4d (unknown) (no (unknown) (unknown) 14 (units (unkno wn) date) unknown) (unknown) (no (unknown) (unknown) 14w 6d 186 lb (units ( unknown) date) unknown) (unknown) (no (unknown) (unknown) 18w 6d 189 lb (units ( unknown) date) unknown) (unknown) (no (unknown) (unknown) 22w 4d 198 lb (units ( unknown) date) unknown) (unknown) (no (unknown) (unknown) 26w 4d 206 lb (units ( unknown) date) unknown) (unknown) (no (unknown) (unknown) 26wk4d. Pt with (units (unknown) date) some abdominal unknown) musculoskeletal discomfort, lower and (unknown) (no (unknown) (unknown) [id number], IVF (units ( unknown) date) , at unknown) 22wks here for DANYELLE visit. Constipation, no (unknown) (no (unknown) (unknown) 27yo (units (unkn own) date) presents for DANYELLE unknown) visit @ 36wk5d. She reports some normal (unknown) (no (unknown) (unknown) 2wk (units (unkno wn) date) unknown) (unknown) (no (unknown) (unknown) 30w 4d 212 lb (units ( unknown) date) unknown) (unknown) (no (unknown) (unknown) 32w 5d 216 lb (units ( unknown) date) unknown) (unknown) (no (unknown) (unknown) 32wk5d. Trini (units (unknown) date) questions how to unknown) feel contractions, uncertain at times if (unknown) (no (unknown) (unknown) 34w 5d 219 lb (units ( unknown) date) unknown) (unknown) (no (unknown) (unknown) 36w 5d 223 lb (units ( unknown) date) unknown) (unknown) (no (unknown) (unknown) 37w 6d 225 lb (units ( unknown) date) unknown) (unknown) (no (unknown) (unknown) 38w 5d 227 lb (units ( unknown) date) unknown) (unknown) (no (unknown) (unknown) 39w 5d 229 lb (units ( unknown) date) unknown) (unknown) (no (unknown) (unknown) [id number] (units (unkno wn) date) unknown) (unknown) (no (unknown) (unknown) 57 (units (unkno wn) date) unknown) (unknown) (no (unknown) (unknown) Abnormal Pap (units (u nknown) date) smear of cervix unknown) (-2013) (unknown) (no (unknown) (unknown) Abnormal lab (units (u nknown) date) values 1st unknown) trimester: discussed (unknown) (no (unknown) (unknown) Add'l Plan (units (unk nown) date) Details unknown) (unknown) (no (unknown) (unknown) Age/Sex: 27 / F (units (unknown) date) Date of Service: unknown) (unknown) (no (unknown) (unknown) Allergies (units (unkn own) date) unknown) (unknown) (no (unknown) (unknown) [place], [place] (units ( unknown) date) [id number] unknown) (unknown) (no (unknown) (unknown) Anesthesia (units (unk nown) date) unknown) (unknown) (no (unknown) (unknown) Aneuploidy (units (unk nown) date) Screening Offered: unknown) Declined (unknown) (no (unknown) (unknown) Anticipated (units (un known) date) course of unknown) care: discussed (unknown) (no (unknown) (unknown) Assessment and (units (unknown) date) Plan unknown) (unknown) (no (unknown) (unknown) Attending Dr: Lynne (units (unknown) date) Sirisha Campuzano MD unknown) (unknown) (no (unknown) (unknown) BMI 40.5 (units (unkno wn) date) unknown) (unknown) (no (unknown) (unknown) BP 128/70 (units (unkn own) date) unknown) (unknown) (no (unknown) (unknown) (units (unkno wn) date) Plan/Preferences unknown) (unknown) (no (unknown) (unknown) Planning (units (unknown) date) unknown) (unknown) (no (unknown) (unknown) Blood Pressure (units (unknown) date) Location Rt unknown) brachial (unknown) (no (unknown) (unknown) Blood (units (unkno wn) date) transfusions?: yes unknown) (never had but willing to accept) (unknown) (no (unknown) (unknown) Breastfeed Preg (units (unknown) date) Comp Name unknown) (unknown) (no (unknown) (unknown) Cervidil 11/14 (units (unknown) date) p.m. For NST today unknown) since 40 weeks this weekend. GOMEZ 18 wks 2 (unknown) (no (unknown) (unknown) Childbirth (units (unk nown) date) Classes: discussed unknown) (unknown) (no (unknown) (unknown) Chlamydia (units (unkno wn) date) Gonorrhea PCR unknown) -URINE Today Z34.83 - Encounter for supervision of other (unknown) (no (unknown) (unknown) Current Estimate (units (unknown) date) 06/30/22 Manual unknown) 39w 5d IVF pregnan (unknown) (no (unknown) (unknown) Current (units (unknown) date) History unknown) (unknown) (no (unknown) (unknown) : 1995 (units (unknown) date) Acct:[id number] unknown) (unknown) (no (unknown) (unknown) Date of positive (units (unknown) date) home unknown) test: 10/16/21 (unknown) (no (unknown) (unknown) Date (units (unkno wn) date) unknown) (unknown) (no (unknown) (unknown) Del. Date (units (unkn own) date) GA/Weeks Labor unknown) Lgth Wt Sex Route Outcome Anesthesia Place (unknown) (no (unknown) (unknown) Delivery Date: (units (unknown) date) 02/17/19 Last unknown) Updated by: Juhi Hayes R.N. (unknown) (no (unknown) (unknown) Delv (units (unkno wn) date) unknown) (unknown) (no (unknown) (unknown) Denies Congenital (units (unknown) date) Heart Defect, unknown) Denies Down Syndrome, Denies Muscular Dystrophy, (unknown) (no (unknown) (unknown) Denies Maternal (units (unknown) date) Metabolic Disorder unknown) (EG,TYPE 1 Diabetes, PKU), Denies Patient or (unknown) (no (unknown) (unknown) Denies Neural (units ( unknown) date) Tube Defect unknown) (Meningomyelocele, Spina Bifida, or Anencephaly), (unknown) (no (unknown) (unknown) Denies Sickle (units ( unknown) date) Cell Disease or unknown) Trait (), Denies Hemophilia or other blood (unknown) (no (unknown) (unknown) Denies Epifanio-Sachs (units (unknown) date) (Ashkenazi Quaker, unknown) [place], [place]), Denies Nadja (unknown) (no (unknown) (unknown) Denies other (units (u nknown) date) unknown) (unknown) (no (unknown) (unknown) Denies over the (units (unknown) date) counter unknown) medications, Denies alcohol, Denies illicit drugs and (unknown) (no (unknown) (unknown) Depression: (units (un known) date) discussed unknown) (unknown) (no (unknown) (unknown) Dept at (units (unkno wn) date) . 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), (unknown) (no (unknown) (unknown) Documented By: (units (unknown) date) Lynne Campuzano unknown) 06/28/22 07 (unknown) (no (unknown) (unknown) LORY Calculator (units (unknown) date) unknown) (unknown) (no (unknown) (unknown) EGA Weight BP (units ( unknown) date) UGlucose unknown) (unknown) (no (unknown) (unknown) Encounter for in (units (unknown) date) vitro unknown) fertilization () (unknown) (no (unknown) (unknown) Estimated (units (unkn own) date) Delivery Date unknown) Method Current (unknown) (no (unknown) (unknown) Exercise and (units (u nknown) date) activity, unknown) work/environmental /hazards, Sexual activity, X-ray (unknown) (no (unknown) (unknown) Expected Delivery (units (unknown) date) Route/Plan unknown) (unknown) (no (unknown) (unknown) FM returns to a (units (unknown) date) lot of normal unknown) movement. On exam today, FM seen. Advised her, (unknown) (no (unknown) (unknown) Family History (units (unknown) date) (Updated 01/04/22 unknown) @ 23:06 by Paris Davalos) (unknown) (no (unknown) (unknown) Father of Baby: (units (unknown) date) Gerda unknown) (unknown) (no (unknown) (unknown) [facility]) (unknown) (no (unknown) (unknown) First Trimester (units (unknown) date) Education unknown) Checklist (unknown) (no (unknown) (unknown) (units (unkno wn) date) unknown) (unknown) (no (unknown) (unknown) Genetic Screening (units (unknown) date) + Counseling unknown) (unknown) (no (unknown) (unknown) Genetic Screening (units (unknown) date) unknown) (unknown) (no (unknown) (unknown) Grandfather (units (un known) date) Diabetes mellitus unknown) (unknown) (no (unknown) (unknown) Grandmother (units (un known) date) Breast cancer unknown) (unknown) (no (unknown) (unknown) Grandmother (units (un known) date) Hypertension unknown) (unknown) (no (unknown) (unknown) 2 (units (unkn own) date) Multiple births unknown) (unknown) (no (unknown) (unknown) HIV risk (units (unkno wn) date) evaluation: low unknown) risk (unknown) (no (unknown) (unknown) Health Center (units ( unknown) date) Education unknown) (unknown) (no (unknown) (unknown) Health center (units ( unknown) date) information: unknown) nature of practice discussed, visit schedule (unknown) (no (unknown) (unknown) Height 5 ft 3 in (units (unknown) date) unknown) (unknown) (no (unknown) (unknown) Hepatitis C risk (units (unknown) date) evaluation: low unknown) risk (unknown) (no (unknown) (unknown) Here for a DANYELLE (units (unknown) date) visit @ 38wk5d. unknown) She denies any problems. She has felt (unknown) (no (unknown) (unknown) History of (units (unk nown) date) Hepatitis B: No unknown) (unknown) (no (unknown) (unknown) History of (units (unk nown) date) Hepatitis C: No unknown) (unknown) (no (unknown) (unknown) History of LEEP (units (unknown) date) procedure unknown) (unknown) (no (unknown) (unknown) Human papilloma (units (unknown) date) virus () unknown) (unknown) (no (unknown) (unknown) Montague's (units (u nknown) date) Chorea, Denies unknown) Other inherited genetic or chromosomal disorder, (unknown) (no (unknown) (unknown) Hx # (units (u nknown) date) Pregnancies unknown) Elective abortions (unknown) (no (unknown) (unknown) Hx # Term (units (unkn own) date) Pregnancies unknown) Ectopic pregnancies (unknown) (no (unknown) (unknown) Hx of (units (unkno wn) date) tonsillectomy unknown) () (unknown) (no (unknown) (unknown) IVF for this (units (u nknown) date) , unknown) declined Echo 02/28/22 32 wk growth US 44%, f/u (unknown) (no (unknown) (unknown) Infection History (units (unknown) date) unknown) (unknown) (no (unknown) (unknown) Infection history (units (unknown) date) comments: needs unknown) flu + covid vaccines (unknown) (no (unknown) (unknown) Infectious (units (unk nown) date) Disease Education unknown) (unknown) (no (unknown) (unknown) Infectious (units (unk nown) date) disease exposure: unknown) chicken pox immunity discussed, tuberculosis (unknown) (no (unknown) (unknown) 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) unknown) (unknown) (no (unknown) (unknown) Initial Weight: (units (unknown) date) 180 lb unknown) (unknown) (no (unknown) (unknown) Initials (units (unkno wn) date) unknown) (unknown) (no (unknown) (unknown) Intake Clinical (units (unknown) date) Staff unknown) (unknown) (no (unknown) (unknown) Intake Note: (units (u nknown) date) unknown) (unknown) (no (unknown) (unknown) Intake performed (units (unknown) date) by: unknown) Elba Hopson (unknown) (no (unknown) (unknown) Intake (units (unkno wn) date) unknown) (unknown) (no (unknown) (unknown) Trini and (units (un known) date) Bebeto are here unknown) for a DANYELLE visit @ 39wk5d. She overall feels (unknown) (no (unknown) (unknown) Trini presents (units (unknown) date) today for routine unknown) OB visit at 37w6d. 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) (-2011) (unknown) (no (unknown) (unknown) Marital status: (units (unknown) date) unknown) (unknown) (no (unknown) (unknown) Medical History (units (unknown) date) (Updated 02/28/22 unknown) @ 08:37 by Lynne Campuzano MD) (unknown) (no (unknown) (unknown) Medications (units (un known) date) unknown) (unknown) (no (unknown) (unknown) Mother (units (unkno wn) date) Hypertension unknown) (unknown) (no (unknown) (unknown) N 140 15 4wk (units (u nknown) date) unknown) (unknown) (no (unknown) (unknown) N Yes 142 19 girl (units (unknown) date) 4wk unknown) (unknown) (no (unknown) (unknown) N Yes 149 39 (units (u nknown) date) Vertex absent unknown) 0/20% 1wk (unknown) (no (unknown) (unknown) N Yes no 140 (units (u nknown) date) Vertex absent 2wk unknown) (unknown) (no (unknown) (unknown) N Yes no 143 22 (units (unknown) date) absent 4wk unknown) (unknown) (no (unknown) (unknown) N Yes no 144 27 (units (unknown) date) absent 4 wk unknown) (unknown) (no (unknown) (unknown) N Yes no 144 (units (u nknown) date) Vertex absent EFW unknown) 44%, GOMEZ 14 (unknown) (no (unknown) (unknown) N Yes no 145 30 (units (unknown) date) absent 4wk unknown) (unknown) (no (unknown) (unknown) N Yes no 148 37 (units (unknown) date) Vertex absent unknown) 0/long order (unknown) (no (unknown) (unknown) N Yes yes 144 38 (units (unknown) date) Vertex absent GBS unknown) negativ (unknown) (no (unknown) (unknown) NF (units (unkno wn) date) unknown) (unknown) (no (unknown) (unknown) No Known Drug (units ( unknown) date) Allergies Allergy unknown) (Unverified 06/28/22 07:57) (unknown) (no (unknown) (unknown) No vaginal (units (unk nown) date) bleeding. No unknown) change in vaginal discharge. No fevers. No vaginal (unknown) (no (unknown) (unknown) Notes (units (unkno wn) date) unknown) (unknown) (no (unknown) (unknown) Number of Living (units (unknown) date) Children unknown) (unknown) (no (unknown) (unknown) Number of (units (unkn own) date) fetuses:: Single unknown) (unknown) (no (unknown) (unknown) Nutrition and (units ( unknown) date) weight gain unknown) counseling: special diet: discussed (unknown) (no (unknown) (unknown) OB Office Visit (units (unknown) date) unknown) (unknown) (no (unknown) (unknown) OB Visit Log (units (u nknown) date) unknown) (unknown) (no (unknown) (unknown) On control (units (unknown) date) at conception?: No unknown) (IVF) (unknown) (no (unknown) (unknown) Orders (units (unkno wn) date) unknown) (unknown) (no (unknown) (unknown) Orders: (units (unkno wn) date) unknown) (unknown) (no (unknown) (unknown) Other Estimates (units (unknown) date) 06/26/22 LMP unknown) (Certain) 40w 2d (unknown) (no (unknown) (unknown) PFSH (units (unkno wn) date) unknown) (unknown) (no (unknown) (unknown) Para 0 (units (unkno wn) date) Spontaneous unknown) abortions 1 (unknown) (no (unknown) (unknown) Partner history (units (unknown) date) of STD: denies hx unknown) (unknown) (no (unknown) (unknown) Partner history (units (unknown) date) of genital herpes: unknown) No (unknown) (no (unknown) (unknown) Partner: Bebeto (units (unknown) date) [place] unknown) (unknown) (no (unknown) (unknown) Past Pregnancies (units (unknown) date) unknown) (unknown) (no (unknown) (unknown) Patient is (units (unk nown) date) feeling well. Some unknown) mild cramping. No bleeding. No fevers. (unknown) (no (unknown) (unknown) Patient is (units (unk nown) date) feeling well. Some unknown) pressure sensation but no other concerns. (unknown) (no (unknown) (unknown) Patient's age 35 (units (unknown) date) years or older as unknown) of estimated date of delivery: No (unknown) (no (unknown) (unknown) Patient: (units (unkno wn) date) Trini Lorenz unknown) MR#: [id number] (unknown) (no (unknown) (unknown) Personal history (units (unknown) date) of STD: HPV (2015) unknown) (unknown) (no (unknown) (unknown) Personal history (units (unknown) date) of genital herpes: unknown) No (unknown) (no (unknown) (unknown) Position Sitting (units (unknown) date) unknown) (unknown) (no (unknown) (unknown) History (units (unknown) date) unknown) (unknown) (no (unknown) (unknown) type:: (units (unknown) date) Other Normal unknown) (unknown) (no (unknown) (unknown) (units (unkno wn) date) Education unknown) (unknown) (no (unknown) (unknown) Initial (units (unknown) date) Assessment unknown) (unknown) (no (unknown) (unknown) Specific (units (unknown) date) Issues/Plans unknown) (unknown) (no (unknown) (unknown) Testing: (units (unknown) date) discussed unknown) (unknown) (no (unknown) (unknown) Visit (units (unknown) date) unknown) (unknown) (no (unknown) (unknown) (units (unkno wn) date) education packet: unknown) Child education/plan, symptoms, (unknown) (no (unknown) (unknown) Primary Care (units (u nknown) date) Provider: Britt unknown) Sharmaine (unknown) (no (unknown) (unknown) Primary Ob (units (unk nown) date) Provider: unknown) Lynne Campuzano (unknown) (no (unknown) (unknown) Prior (units (unkno wn) date) GBS-Infected unknown) child: No (unknown) (no (unknown) (unknown) Providers (units (unkn own) date) unknown) (unknown) (no (unknown) (unknown) Quad screen nml (units (unknown) date) unknown) (unknown) (no (unknown) (unknown) DANYELLE visit 34wk5d. (units (unknown) date) Feeling well. She unknown) reports sometimes a few days of (unknown) (no (unknown) (unknown) DANYELLE@30wk4d. She (units (unknown) date) denies any unknown) problems. She bought an abdominal binder and (unknown) (no (unknown) (unknown) Rash or viral (units ( unknown) date) illness since last unknown) menstrual period: No (unknown) (no (unknown) (unknown) Reason For Visit (units (unknown) date) unknown) (unknown) (no (unknown) (unknown) Recent travel (units ( unknown) date) outside of unknown) country?: No (unknown) (no (unknown) (unknown) Recurrent (units (unkn own) date) loss or unknown) a stillbirth: No (unknown) (no (unknown) (unknown) Routine (units (unkno wn) date) precautions and unknown) normal physiological changes of (unknown) (no (unknown) (unknown) Routine (units (unkno wn) date) precautions unknown) reviewed. (unknown) (no (unknown) (unknown) Rubella nonimmune (units (unknown) date) immunize unknown) (unknown) (no (unknown) (unknown) S/P LEEP (loop (units (unknown) date) electrosurgical unknown) excision procedure) () (unknown) (no (unknown) (unknown) Safety (units (unkno wn) date) unknown) (unknown) (no (unknown) (unknown) Signed By: (units (unk nown) date) <Electronically unknown) signed by Lynne Campuzano MD> (unknown) (no (unknown) (unknown) Signed (units (unkno wn) date) unknown) (unknown) (no (unknown) (unknown) Smoking Status: (units (unknown) date) Never smoker unknown) (unknown) (no (unknown) (unknown) Smoking/Tobacco (units (unknown) date) use: discussed unknown) (unknown) (no (unknown) (unknown) Social History (units (unknown) date) unknown) (unknown) (no (unknown) (unknown) Surgical History (units (unknown) date) (Updated 01/04/22 unknown) @ 23:05 by Paris Davalos) (unknown) (no (unknown) (unknown) Symptoms since (units (unknown) date) LMP: Reports unknown) amenorrhea, nausea, fatigue, urinary frequency, (unknown) (no (unknown) (unknown) TR 174 11 4wk (units ( unknown) date) unknown) (unknown) (no (unknown) (unknown) Tdap status: (units (u nknown) date) immunized unknown) (unknown) (no (unknown) (unknown) Teratogen (units (unkn own) date) Exposures since unknown) LMP/Conception: Denies prescription medications, (unknown) (no (unknown) (unknown) Testing Education (units (unknown) date) unknown) (unknown) (no (unknown) (unknown) Testing education (units (unknown) date) completed: Genetic unknown) testing, group B strep and Cell Free DNA (unknown) (no (unknown) (unknown) This note may (units ( unknown) date) have been all or unknown) partially generated using voice recognition (unknown) (no (unknown) (unknown) Tobacco + (units (unkn own) date) Substance Use unknown) (unknown) (no (unknown) (unknown) Tobacco Status (units (unknown) date) unknown) (unknown) (no (unknown) (unknown) Trimester:: 3rd (units (unknown) date) Trimester unknown) (28wks-Del) (unknown) (no (unknown) (unknown) Type(s) of (units (unk nown) date) exercise: none unknown) (unknown) (no (unknown) (unknown) Typically feels (units (unknown) date) in the a.m.. Only unknown) feeling occasionally, nothing routinely. I (unknown) (no (unknown) (unknown) UProtein Movement (units (unknown) date) PreLabor FHR Fndl unknown) Ht Pres Edema Cerv Exam US/Comment Next Appt (unknown) (no (unknown) (unknown) Ultrasound (units (unk nown) date) Details:: Prior 7 unknown) week 3 day ultrasound at IVF on 11/15/21 clinic (unknown) (no (unknown) (unknown) Ultrasound (units (unk nown) date) unknown) (unknown) (no (unknown) (unknown) VB. Feeling good (units (unknown) date) movement. On unknown) discussion, she desire induction of labor (unknown) (no (unknown) (unknown) Vaginal (units (unkno wn) date) unknown) (unknown) (no (unknown) (unknown) Varicella/chicken (units (unknown) date) pox status: unknown) immunized and previous disease (mild case as (unknown) (no (unknown) (unknown) Visit Date: (units (un known) date) 12/08/21 Last unknown) Updated by: Carrie Pichardo MD (unknown) (no (unknown) (unknown) Visit Date: (units (un known) date) 01/05/22 Last unknown) Updated by: Carrie Pichardo MD (unknown) (no (unknown) (unknown) Visit Date: (units (un known) date) 02/02/22 Last unknown) Updated by: Carrie Pichardo MD (unknown) (no (unknown) (unknown) Visit Date: (units (un known) date) 02/28/22 Last unknown) Updated by: Lynne Campuzano MD (unknown) (no (unknown) (unknown) Visit Date: (units (un known) date) 03/28/22 Last unknown) Updated by: Lynne Campuzano MD (unknown) (no (unknown) (unknown) Visit Date: (units (un known) date) 04/25/22 Last unknown) Updated by: Lynne Campuzano MD (unknown) (no (unknown) (unknown) Visit Date: (units (un known) date) 05/10/22 Last unknown) Updated by: Lynne Campuzano MD (unknown) (no (unknown) (unknown) Visit Date: (units (un known) date) 05/24/22 Last unknown) Updated by: Lynne Campuzano MD (unknown) (no (unknown) (unknown) Visit Date: (units (un known) date) 06/07/22 Last unknown) Updated by: Lynne Campuzano MD (unknown) (no (unknown) (unknown) Visit Date: (units (un known) date) 06/15/22 Last unknown) Updated by: Kacy Palomo P.A-C (unknown) (no (unknown) (unknown) Visit Date: (units (un known) date) 06/21/22 Last unknown) Updated by: Lynne Campuzano MD (unknown) (no (unknown) (unknown) Visit Date: (units (un known) date) 06/28/22 Last unknown) Updated by: Lynne Campuzano MD (unknown) (no (unknown) (unknown) Visit Reasons: OB (units (unknown) date) check unknown) (unknown) (no (unknown) (unknown) Vitals (units (unkno wn) date) unknown) (unknown) (no (unknown) (unknown) Vitamins and (units (u nknown) date) iron, Diet and unknown) weight gain, Fish and mercury intake, Caffeine use, (unknown) (no (unknown) (unknown) WG (units (unkno wn) date) unknown) (unknown) (no (unknown) (unknown) Weeks gestation:: (units (unknown) date) 39 unknown) (unknown) (no (unknown) (unknown) Weight 229 lb (units ( unknown) date) unknown) (unknown) (no (unknown) (unknown) Millis teeth (units (u nknown) date) extracted () unknown) (unknown) (no (unknown) (unknown) Yes no 136 40 (units ( unknown) date) Vertex absent unknown) 0/long IOL 11/ (unknown) (no (unknown) (unknown) Zika virus (units (unk nown) date) exposure: No unknown) (unknown) (no (unknown) (unknown) after she (units (unkn own) date) hydrates. No unknown) persistent cramping, ctx, LOF or VB. Discussed GBS (unknown) (no (unknown) (unknown) alcohol intake: (units (unknown) date) former unknown) (unknown) (no (unknown) (unknown) amh (units (unkno wn) date) unknown) (unknown) (no (unknown) (unknown) and office visits (units (unknown) date) unknown) (unknown) (no (unknown) (unknown) anyone in either (units (unknown) date) family with: unknown) (unknown) (no (unknown) (unknown) at 40 weeks if no (units (unknown) date) labor prior. Will unknown) schedule and call her with a date. (unknown) (no (unknown) (unknown) baby's father had (units (unknown) date) a child with unknown) defects not listed above and Denies Other (unknown) (no (unknown) (unknown) bleeding. She is (units (unknown) date) feeling baby move. unknown) Routine precautions reviewed. (unknown) (no (unknown) (unknown) caffeine: Yes (units ( unknown) date) (aware of 200mg unknown) daily limit) (unknown) (no (unknown) (unknown) carbon monox (units (u nknown) date) detector in home: unknown) Yes (unknown) (no (unknown) (unknown) child) (units (unkno wn) date) unknown) (unknown) (no (unknown) (unknown) concerns with (units ( unknown) date) COVID infection unknown) and and urged patient to consider (unknown) (no (unknown) (unknown) consistent with (units (unknown) date) dates. unknown) (unknown) (no (unknown) (unknown) cramping, vaginal (units (unknown) date) bleeding or unknown) leakage of fluid. Doing her Glucola today. (unknown) (no (unknown) (unknown) current (units (unkno wn) date) occupational unknown) exposures/hazards: No (unknown) (no (unknown) (unknown) cy (units (unkno wn) date) unknown) (unknown) (no (unknown) (unknown) cytotec (units (unkno wn) date) unknown) (unknown) (no (unknown) (unknown) daily servings (units (unknown) date) fruits/ve-4 unknown) (unknown) (no (unknown) (unknown) declined referral (units (unknown) date) for unknown) echocardiogram for IVF . (unknown) (no (unknown) (unknown) discussed (units (unkn own) date) increased fiber in unknown) diet. May use MiraLax. No uterine type cramping, (unknown) (no (unknown) (unknown) discussed with (units (unknown) date) the patient. unknown) Patient is not COVID vaccinated. Discussed (unknown) (no (unknown) (unknown) disorders, Denies (units (unknown) date) Cystic Fibrosis, unknown) Denies Mental Retardation/Autism , Denies (unknown) (no (unknown) (unknown) do you feel safe (units (unknown) date) at home: Yes unknown) (unknown) (no (unknown) (unknown) drops of urine, (units (unknown) date) does feel it is unknown) from the bladder. No vaginal leakage of fluid (unknown) (no (unknown) (unknown) during the past (units (unknown) date) year weight has: unknown) decreased > 10 lbs (lost 30 lbs) (unknown) (no (unknown) (unknown) e (units (unkno wn) date) unknown) (unknown) (no (unknown) (unknown) eating out: (units (un known) date) rarely or never unknown) (unknown) (no (unknown) (unknown) ed 1wk (units (unkno wn) date) unknown) (unknown) (no (unknown) (unknown) education level: (units (unknown) date) college unknown) (unknown) (no (unknown) (unknown) exposure (units (unkno wn) date) discussed, CMV unknown) discussed, Toxoplasmosis precautions, Listeriosis (unknown) (no (unknown) (unknown) exposure, (units (unkn own) date) Medication use, unknown) Sauna/hot tub use, Dental care and Travel (unknown) (no (unknown) (unknown) feeling some less (units (unknown) date) movement, but she unknown) does kick counts and gets enough kicks, then (unknown) (no (unknown) (unknown) feeling some upper (units (unknown) date) discomfort when unknown) standing, but some muscle support tape to try (unknown) (no (unknown) (unknown) feels better with (units (unknown) date) using this when on unknown) her feet. Feeling good movement. No (unknown) (no (unknown) (unknown) felt any further (units (unknown) date) contractions. No unknown) LOF or VB. Feeling good movement. She (unknown) (no (unknown) (unknown) movement (units (unknown) date) and denies VB, unknown) LOF. Growth US showed normal GOMEZ 18.6 and growth (unknown) (no (unknown) (unknown) movement (units (unknown) date) daily. GBS screen unknown) collected. She desired a cervical check. Will (unknown) (no (unknown) (unknown) fire extinguisher (units (unknown) date) in home: No unknown) (unknown) (no (unknown) (unknown) firearms in home: (units (unknown) date) No unknown) (unknown) (no (unknown) (unknown) frequency: does (units (unknown) date) not exercise unknown) (unknown) (no (unknown) (unknown) frequent, then to (units (unknown) date) call. Occasionally unknown) feeling vaginal pressure when she sits, (unknown) (no (unknown) (unknown) getting the (units (un known) date) vaccine in unknown) . (unknown) (no (unknown) (unknown) growth US ordered (units (unknown) date) @36wks unknown) (unknown) (no (unknown) (unknown) have occurred. If (units (unknown) date) there are any unknown) questions, please contact the Medical Records (unknown) (no (unknown) (unknown) having a girl (units ( unknown) date) unknown) (unknown) (no (unknown) (unknown) her in for NST. (units (unknown) date) Feels some cramps unknown) in the morning after wakening, then results (unknown) (no (unknown) (unknown) here. No other (units (unknown) date) problems. Feeling unknown) good movement. No contractions, (unknown) (no (unknown) (unknown) household (units (unkn own) date) members: spouse unknown) (unknown) (no (unknown) (unknown) housing: house (units (unknown) date) unknown) (unknown) (no (unknown) (unknown) if she does ever (units (unknown) date) feel significantly unknown) less, then definitely call and will bring (unknown) (no (unknown) (unknown) in the 56%. The (units (unknown) date) cervical canal was unknown) not well seen. She reports [place] and (unknown) (no (unknown) (unknown) irritability, (units ( unknown) date) bloating and other unknown) (headaches + constipation) (unknown) (no (unknown) (unknown) is scheduled for (units (unknown) date) elective term IOL unknown) next week at 40 weeks, if no labor. For (unknown) (no (unknown) (unknown) leakage of fluid, (units (unknown) date) vaginal bleeding unknown) or abnormal vaginal discharge. Feeling (unknown) (no (unknown) (unknown) marital status: (units (unknown) date) unknown) (unknown) (no (unknown) (unknown) may occur. (units (unk nown) date) Occasional unknown) wrong-word or 'sound-alike' substitutions may have (unknown) (no (unknown) (unknown) medication (units (unk nown) date) options during unknown) labor. Tdap given today. (unknown) (no (unknown) (unknown) musculoskeletal (units (unknown) date) discomforts of unknown) , especially by the end of the day. No (unknown) (no (unknown) (unknown) needed. (units (unkno wn) date) unknown) (unknown) (no (unknown) (unknown) normal Glucola, (units (unknown) date) hemoglobin was unknown) 11.8. Questions answered regarding pain (unknown) (no (unknown) (unknown) normal , (units (unknown) date) third trimester, unknown) [id number].39 - 39 weeks gestation of (unknown) (no (unknown) (unknown) noted cramping, (units (unknown) date) contractions, unknown) vaginal bleeding or leakage of fluid. She had a (unknown) (no (unknown) (unknown) nothing (units (unkno wn) date) persistent. unknown) Feeling good movement. Occasionally leaking few (unknown) (no (unknown) (unknown) number of (units (unkn own) date) children: 0 unknown) (unknown) (no (unknown) (unknown) occasional (units (unk nown) date) irregular stronger unknown) contractions, but nothing regular. Reviewed labor (unknown) (no (unknown) (unknown) occupational (units (u nknown) date) status: unemployed unknown) (unknown) (no (unknown) (unknown) occurred due to (units (unknown) date) the inherent unknown) limitations of voice recognition software. Please (unknown) (no (unknown) (unknown) or bleeding. No (units (unknown) date) persistent unknown) cramping. Ultrasound for EFW today due to IVF (unknown) (no (unknown) (unknown) other problems. (units (unknown) date) Overall sleeping unknown) well. She felt a little cramping which (unknown) (no (unknown) (unknown) other problems. (units (unknown) date) Tried 1 Colace unknown) daily without improvement. Discussed increase (unknown) (no (unknown) (unknown) otherwise when (units (unknown) date) sitting still. No unknown) headache, scotomata or nausea. She is not (unknown) (no (unknown) (unknown) pain, points to (units (unknown) date) over uterus, unknown) pinching pain when she bends over. No pain (unknown) (no (unknown) (unknown) pets and animals: (units (unknown) date) Yes (2 dogs) unknown) (unknown) (no (unknown) (unknown) . EFW 44 (units (unknown) date) percentile, 2022 unknown) g, 4 lb 7 oz. GOMEZ 14.6. (unknown) (no (unknown) (unknown) prenat.vits,emilia,m (units (unknown) date) vo-frgu-fiuex 1 unknown) tab PO DAILY 11/27/21 [History Confirmed (unknown) (no (unknown) (unknown) prevention and (units (unknown) date) Rubella unknown) Immunization (unknown) (no (unknown) (unknown) pt here for ob (units (unknown) date) check unknown) (unknown) (no (unknown) (unknown) read the note (units ( unknown) date) carefully and unknown) recognize, using context, where these substitutions (unknown) (no (unknown) (unknown) recheck a growth (units (unknown) date) ultrasound, unknown) ordered, for IVF . (unknown) (no (unknown) (unknown) resolve, only has (units (unknown) date) felt an occasional unknown) contraction. No LOF or VB. Feeling good (unknown) (no (unknown) (unknown) reviewed had a (units (unknown) date) palpate for unknown) contractions, and if having every 10 minutes or more (unknown) (no (unknown) (unknown) reviewed, (units (unkn own) date) coverage 24 hours unknown) a day and participation of father in care (unknown) (no (unknown) (unknown) routine (units ( unknown) date) movement. She will unknown) do her Glucola/H/H next visit. Offered, (unknown) (no (unknown) (unknown) s/sx and when to (units (unknown) date) call. GBS was unknown) negative. No concerns. F/u in 1 week or as (unknown) (no (unknown) (unknown) screen next (units (un known) date) visit. unknown) (unknown) (no (unknown) (unknown) seatbelt use: (units ( unknown) date) always unknown) (unknown) (no (unknown) (unknown) second hand (units (un known) date) exposure: No unknown) (unknown) (no (unknown) (unknown) she is feeling (units ( unknown) date) Bc Joy or unknown) the baby, when feels tight in the upper abdomen. (unknown) (no (unknown) (unknown) software. 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 No LOF or (unknown) (no (unknown) (unknown) special donna (units ( unknown) date) needs: No unknown) (unknown) (no (unknown) (unknown) substance use (units ( unknown) date) type: does not use unknown) (unknown) (no (unknown) (unknown) to 2 daily. After (units (unknown) date) review, may need unknown) to increase water intake recently, and (unknown) (no (unknown) (unknown) to use as an (units (u nknown) date) abdominal binder. unknown) Will try to fit her for an abdominal binder (unknown) (no (unknown) (unknown) [facility] history: [facility] ([facility]) [facility] (unknown) (no (unknown) (unknown) water heater temp (units (unknown) date) set < 120 deg: No unknown) (unsure) (unknown) (no (unknown) (unknown) weeks ago, (units (unk nown) date) deferred today. unknown) (unknown) (no (unknown) (unknown) well, but getting (units (unknown) date) general unknown) discomfort. She is feeling some right upper abdominal (unknown) (no (unknown) (unknown) well-balanced (units ( unknown) date) diet: about half unknown) the time (unknown) (no (unknown) (unknown) working smoke (units ( unknown) date) detector in home: unknown) Yes Result panel 343 (unknown) (no date) (unknown) (unknown) NOT DETECTED (units ( unknown) unknown) (unknown) (no date) (unknown) (unknown) NOT DETECTED (units ( unknown) unknown) Result panel 344 (unknown) (no (unknown) (unknown) (no value) (units (unk nown) date) unknown) (unknown) (no (unknown) (unknown) 02/17/19 8 (units (unk nown) date) spontaneous unknown) (unknown) (no (unknown) (unknown) 08:57 (units (unkno wn) date) unknown) (unknown) (no (unknown) (unknown) 07/01/22 (units (unkno wn) date) Ultrasound #1 40w unknown) 4d (unknown) (no (unknown) (unknown) [id number] (units (unkno wn) date) unknown) (unknown) (no (unknown) (unknown) :57 (units (unkno wn) date) unknown) (unknown) (no (unknown) (unknown) Abnormal Pap (units (u nknown) date) smear of cervix unknown) (-2013) (unknown) (no (unknown) (unknown) Age/Sex: 27 / F (units (unknown) date) unknown) (unknown) (no (unknown) (unknown) Allergies (units (unkn own) date) unknown) (unknown) (no (unknown) (unknown) Allergy/AdvReac (units (unknown) date) Type Severity unknown) Reaction Status Date / Time (unknown) (no (unknown) (unknown) Anesthesia (units (unk nown) date) unknown) (unknown) (no (unknown) (unknown) Antibody Screen (units (unknown) date) Negative 12/08/21 unknown) 08:57 (unknown) (no (unknown) (unknown) Blood Type O (units (u nknown) date) Positive 12/08/21 unknown) 08:57 (unknown) (no (unknown) (unknown) Breastfeed Preg (units (unknown) date) Comp Name unknown) (unknown) (no (unknown) (unknown) Chief complaint: (units (unknown) date) Induction unknown) (unknown) (no (unknown) (unknown) Current Estimate (units (unknown) date) 06/30/22 Manual unknown) 40w 5d IVF pregnan (unknown) (no (unknown) (unknown) : 1995 (units (unknown) date) Acct:[id number] unknown) (unknown) (no (unknown) (unknown) Date Patient (units (u nknown) date) Seen: 07/05/22 unknown) (unknown) (no (unknown) (unknown) Date of Service: (units (unknown) date) 07/05/22 unknown) (unknown) (no (unknown) (unknown) Date of (units (unkno wn) date) admission: unknown) 07/05/22 (unknown) (no (unknown) (unknown) Date/Time (units (unkn own) date) unknown) (unknown) (no (unknown) (unknown) Del. Date (units (unkn own) date) GA/Weeks Labor unknown) Lgth Wt Sex Route Outcome Anesthesia Place (unknown) (no (unknown) (unknown) Delivery Date: (units (unknown) date) 02/17/19 Last unknown) Updated by: Juhi Hayes R.N. (unknown) (no (unknown) (unknown) Delv (units (unkno wn) date) unknown) (unknown) (no (unknown) (unknown) LORY Calculator (units (unknown) date) unknown) (unknown) (no (unknown) (unknown) Encounter for in (units (unknown) date) vitro unknown) fertilization () (unknown) (no (unknown) (unknown) Estimated (units (unkn own) date) Delivery Date unknown) Method Current (unknown) (no (unknown) (unknown) Family History (units (unknown) date) (Updated 01/04/22 unknown) @ 23:06 by Pairs Davalos) (unknown) (no (unknown) (unknown) Glucose 1 Hour (units (unknown) date) 133 mg/dL (76-139) unknown) 03/28/22 09:33 (unknown) (no (unknown) (unknown) Grandfather (units (un known) date) Diabetes mellitus unknown) (unknown) (no (unknown) (unknown) Grandmother (units (un known) date) Breast cancer unknown) (unknown) (no (unknown) (unknown) Grandmother (units (un known) date) Hypertension unknown) (unknown) (no (unknown) (unknown) Group B (units (unkno wn) date) Streptococcus unknown) (PCR) Neg for grp b strep 06/07/22 13:51 (unknown) (no (unknown) (unknown) Hematocrit 35.2 % (units (unknown) date) (36-46) L 03/28/22 unknown) 09:33 (unknown) (no (unknown) (unknown) Hemoglobin 11.8 (units (unknown) date) g/dL (12.0-16.0) L unknown) 03/28/22 09:33 (unknown) (no (unknown) (unknown) Hepatitis B (units (un known) date) Surface Antigen unknown) Negative s/c (NEGATIVE) 12/08/21 08 (unknown) (no (unknown) (unknown) Hepatitis C (units (un known) date) Antibody Negative unknown) s/c (NEGATIVE) 12/08/21 08:57 (unknown) (no (unknown) (unknown) History of (units (unk nown) date) Present Condition unknown) (unknown) (no (unknown) (unknown) Home Medications (units (unknown) date) and Allergies unknown) (unknown) (no (unknown) (unknown) Home Medications (units (unknown) date) unknown) (unknown) (no (unknown) (unknown) 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) unknown) (unknown) (no (unknown) (unknown) Hx of (units (unkno wn) date) tonsillectomy unknown) (-2009) (unknown) (no (unknown) (unknown) 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) unknown) (unknown) (no (unknown) (unknown) [facility] (units (unknown) date) [address] unknown) [place] [address] (unknown) (no (unknown) (unknown) Last OB Lab (units (un known) date) Results: unknown) (unknown) (no (unknown) (unknown) 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) (-2011) (unknown) (no (unknown) (unknown) Medical History (units (unknown) date) (Updated 02/28/22 unknown) @ 08:37 by Lynne Campuzano MD) (unknown) (no (unknown) (unknown) Medication (units (unk nown) date) Instructions unknown) Recorded Confirmed Type (unknown) (no (unknown) (unknown) Meds (units (unkno wn) date) unknown) (unknown) (no (unknown) (unknown) Mother (units (unkno wn) date) Hypertension unknown) (unknown) (no (unknown) (unknown) No Known Drug (units ( unknown) date) Allergies Allergy unknown) Unverified 06/28/22 07:57 (unknown) (no (unknown) (unknown) OB HPI (units (unkno wn) date) unknown) (unknown) (no (unknown) (unknown) VEGETABLE GRADER History + (units (unknown) date) Physical unknown) (unknown) (no (unknown) (unknown) Other Estimates (units (unknown) date) 06/26/22 LMP unknown) (Certain) 41w 2d (unknown) (no (unknown) (unknown) PFSH (units (unkno wn) date) unknown) (unknown) (no (unknown) (unknown) Past Pregnancies (units (unknown) date) unknown) (unknown) (no (unknown) (unknown) Patient: (units (unkno wn) date) Trini Lorenz unknown) MR#: [id number] (unknown) (no (unknown) (unknown) Preadmission Labs (units (unknown) date) unknown) (unknown) (no (unknown) (unknown) Prior (units (unkno wn) date) (ies) unknown) (unknown) (no (unknown) (unknown) Provider: (units (unkn own) date) Lynne Campuzano unknown) (unknown) (no (unknown) (unknown) Rubella Antibody (units (unknown) date) 10.5 IU/mL (>15) L unknown) 12/08/21 08:57 (unknown) (no (unknown) (unknown) S/P LEEP (loop (units (unknown) date) electrosurgical unknown) excision procedure) () (unknown) (no (unknown) (unknown) Signed By: (units (unk nown) date) unknown) (unknown) (no (unknown) (unknown) Smoking Status: (units (unknown) date) Never smoker unknown) (unknown) (no (unknown) (unknown) Social History (units (unknown) date) unknown) (unknown) (no (unknown) (unknown) Surgical History (units (unknown) date) (Updated 01/04/22 unknown) @ 23:05 by Paris Davalos) (unknown) (no (unknown) (unknown) Time Patient (units (u nknown) date) Seen: 08:04 unknown) (unknown) (no (unknown) (unknown) Type(s) of (units (unk nown) date) exercise: none unknown) (unknown) (no (unknown) (unknown) Varicella-Zoster (units (unknown) date) IgG Antibody 509 unknown) index (Immune >165) 12/08/21 (unknown) (no (unknown) (unknown) WG (units (unkno wn) date) unknown) (unknown) (no (unknown) (unknown) Millis teeth (units (u nknown) date) extracted () unknown) (unknown) (no (unknown) (unknown) alcohol intake: (units (unknown) date) former unknown) (unknown) (no (unknown) (unknown) caffeine: Yes (units ( unknown) date) (aware of 200mg unknown) daily limit) (unknown) (no (unknown) (unknown) carbon monox (units (u nknown) date) detector in home: unknown) Yes (unknown) (no (unknown) (unknown) current (units (unkno wn) date) occupational unknown) exposures/hazards: No (unknown) (no (unknown) (unknown) cy (units (unkno wn) date) unknown) (unknown) (no (unknown) (unknown) cytotec (units (unkno wn) date) unknown) (unknown) (no (unknown) (unknown) daily servings (units (unknown) date) fruits/ve-4 unknown) (unknown) (no (unknown) (unknown) do you feel safe (units (unknown) date) at home: Yes unknown) (unknown) (no (unknown) (unknown) during the past (units (unknown) date) year weight has: unknown) decreased > 10 lbs (lost 30 lbs) (unknown) (no (unknown) (unknown) eating out: (units (un known) date) rarely or never unknown) (unknown) (no (unknown) (unknown) education level: (units (unknown) date) college unknown) (unknown) (no (unknown) (unknown) fire extinguisher (units (unknown) date) in home: No unknown) (unknown) (no (unknown) (unknown) firearms in home: (units (unknown) date) No unknown) (unknown) (no (unknown) (unknown) frequency: does (units (unknown) date) not exercise unknown) (unknown) (no (unknown) (unknown) household (units (unkn own) date) members: spouse unknown) (unknown) (no (unknown) (unknown) housing: house (units (unknown) date) unknown) (unknown) (no (unknown) (unknown) marital status: (units (unknown) date) unknown) (unknown) (no (unknown) (unknown) number of (units (unkn own) date) children: 0 unknown) (unknown) (no (unknown) (unknown) occupational (units (u nknown) date) status: unemployed unknown) (unknown) (no (unknown) (unknown) pets and animals: (units (unknown) date) Yes (2 dogs) unknown) (unknown) (no (unknown) (unknown) prenat.vits,emilia,m (units (unknown) date) [id number] 1 unknown) tab PO DAILY 11/27/21 06/28/22 History (unknown) (no (unknown) (unknown) seatbelt use: (units ( unknown) date) always unknown) (unknown) (no (unknown) (unknown) second hand (units (un known) date) exposure: No unknown) (unknown) (no (unknown) (unknown) special donna (units ( unknown) date) needs: No unknown) (unknown) (no (unknown) (unknown) substance use (units ( unknown) date) type: does not use unknown) (unknown) (no (unknown) (unknown) travel history: ([facility] (unknown) date[facility] (unknown) (no (unknown) (unknown) water heater temp (units (unknown) date) set < 120 deg: No unknown) (unsure) (unknown) (no (unknown) (unknown) well-balanced (units ( unknown) date) diet: about half unknown) the time (unknown) (no (unknown) (unknown) working smoke (units ( unknown) date) detector in home: unknown) Yes Result panel 345 (unknown) (no date) (unknown) (unknown) Negative (units (unkn own) unknown) (unknown) (no date) (unknown) (unknown) Negative (units (unkn own) unknown) Result panel 346 (unknown) (no date) (unknown) (unknown) 0 /ul (unkn own) (unknown) (no date) (unknown) (unknown) 0 /ul (unkn own) (unknown) (no date) (unknown) (unknown) 0.1 % (unkn own) (unknown) (no date) (unknown) (unknown) 0.2 % (unkn own) (unknown) (no date) (unknown) (unknown) 10.8 g/dl (unkn own) (unknown) (no date) (unknown) (unknown) 1000 /ul (unkn own) (unknown) (no date) (unknown) (unknown) 11.2 x10 3/ul (unkn own) (unknown) (no date) (unknown) (unknown) 14.1 % (unkn own) (unknown) (no date) (unknown) (unknown) 16.4 % (unkn own) (unknown) (no date) (unknown) (unknown) 1800 /ul (unkn own) (unknown) (no date) (unknown) (unknown) 28.4 pg (unkn own) (unknown) (no date) (unknown) (unknown) 294 x10 3/ul (unkn own) (unknown) (no date) (unknown) (unknown) 3.79 x10 6/ul (unkn own) (unknown) (no date) (unknown) (unknown) 32.7 % (unkn own) (unknown) (no date) (unknown) (unknown) 33.0 % (unkn own) (unknown) (no date) (unknown) (unknown) 74.6 % (unkn own) (unknown) (no date) (unknown) (unknown) 8.7 % (unkn own) (unknown) (no date) (unknown) (unknown) 8400 /ul (unkn own) (unknown) (no date) (unknown) (unknown) 86.2 fl (unkn own) Result panel 347 (unknown) (no date) (unknown) (unknown) NEGATIVE (units (unkn own) unknown) (unknown) (no date) (unknown) (unknown) O Positive (units (un known) unknown) Result panel 348 (unknown) (no (unknown) (unknown) (no value) (units (unk nown) date) unknown) (unknown) (no (unknown) (unknown) 02/17/19 8 (units (unk nown) date) spontaneous unknown) (unknown) (no (unknown) (unknown) 08:57 (units (unkno wn) date) unknown) (unknown) (no (unknown) (unknown) 07/01/22 (units (unkno wn) date) Ultrasound #1 40w unknown) 4d (unknown) (no (unknown) (unknown) 07/05/22 09:45 (units (unknown) date) unknown) (unknown) (no (unknown) (unknown) [id number] (units (unkno wn) date) unknown) (unknown) (no (unknown) (unknown) :57 (units (unkno wn) date) unknown) (unknown) (no (unknown) (unknown) Abnormal Pap (units (u nknown) date) smear of cervix unknown) (-2013) (unknown) (no (unknown) (unknown) Age/Sex: 27 / F (units (unknown) date) unknown) (unknown) (no (unknown) (unknown) Allergies (units (unkn own) date) unknown) (unknown) (no (unknown) (unknown) Allergy/AdvReac (units (unknown) date) Type Severity unknown) Reaction Status Date / Time (unknown) (no (unknown) (unknown) Anesthesia (units (unk nown) date) unknown) (unknown) (no (unknown) (unknown) Antibody Screen (units (unknown) date) Negative 07/05/22 unknown) 09:45 (unknown) (no (unknown) (unknown) Blood Type O (units (u nknown) date) Positive 07/05/22 unknown) 09:45 (unknown) (no (unknown) (unknown) Breastfeed Preg (units (unknown) date) Comp Name unknown) (unknown) (no (unknown) (unknown) Chief complaint: (units (unknown) date) Induction unknown) (unknown) (no (unknown) (unknown) Current Estimate (units (unknown) date) 06/30/22 Manual unknown) 40w 5d IVF pregnan (unknown) (no (unknown) (unknown) : 1995 (units (unknown) date) Acct:[id number] unknown) (unknown) (no (unknown) (unknown) Date Patient (units (u nknown) date) Seen: 07/05/22 unknown) (unknown) (no (unknown) (unknown) Date of Service: (units (unknown) date) 07/05/22 unknown) (unknown) (no (unknown) (unknown) Date of (units (unkno wn) date) admission: unknown) 07/05/22 (unknown) (no (unknown) (unknown) Date/Time (units (unkn own) date) unknown) (unknown) (no (unknown) (unknown) Del. Date (units (unkn own) date) GA/Weeks Labor unknown) Lgth Wt Sex Route Outcome Anesthesia Place (unknown) (no (unknown) (unknown) Delivery Date: (units (unknown) date) 02/17/19 Last unknown) Updated by: Juhi Hayes R.N. (unknown) (no (unknown) (unknown) Delv (units (unkno wn) date) unknown) (unknown) (no (unknown) (unknown) LORY Calculator (units (unknown) date) unknown) (unknown) (no (unknown) (unknown) Encounter for in (units (unknown) date) vitro unknown) fertilization () (unknown) (no (unknown) (unknown) Estimated (units (unkn own) date) Delivery Date unknown) Method Current (unknown) (no (unknown) (unknown) Estimated (units (unkn own) date) Gestational Age unknown) (weeks): 40 (unknown) (no (unknown) (unknown) Family History (units (unknown) date) (Updated 01/04/22 unknown) @ 23:06 by Paris Davalos) (unknown) (no (unknown) (unknown) Glucose 1 Hour (units (unknown) date) 133 mg/dL (76-139) unknown) 03/28/22 09:33 (unknown) (no (unknown) (unknown) Grandfather (units (un known) date) Diabetes mellitus unknown) (unknown) (no (unknown) (unknown) Grandmother (units (un known) date) Breast cancer unknown) (unknown) (no (unknown) (unknown) Grandmother (units (un known) date) Hypertension unknown) (unknown) (no (unknown) (unknown) Group B (units (unkno wn) date) Streptococcus unknown) (PCR) Neg for grp b strep 06/07/22 13:51 (unknown) (no (unknown) (unknown) Hematocrit 32.7 % (units (unknown) date) (36-46) L 07/05/22 unknown) 09:45 (unknown) (no (unknown) (unknown) Hemoglobin 10.8 (units (unknown) date) g/dL (12.0-16.0) L unknown) 07/05/22 09:45 (unknown) (no (unknown) (unknown) Hepatitis B (units (un known) date) Surface Antigen unknown) Negative s/c (NEGATIVE) 12/08/21 08 (unknown) (no (unknown) (unknown) Hepatitis C (units (un known) date) Antibody Negative unknown) s/c (NEGATIVE) 12/08/21 08:57 (unknown) (no (unknown) (unknown) History of (units (unk nown) date) Present Condition unknown) (unknown) (no (unknown) (unknown) Home Medications (units (unknown) date) and Allergies unknown) (unknown) (no (unknown) (unknown) Home Medications (units (unknown) date) unknown) (unknown) (no (unknown) (unknown) 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) unknown) (unknown) (no (unknown) (unknown) Hx of (units (unkno wn) date) tonsillectomy unknown) () (unknown) (no (unknown) (unknown) 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) unknown) (unknown) (no (unknown) (unknown) [facility] (units (unknown) date) [address] unknown) [place] [address] (unknown) (no (unknown) (unknown) Labs (units (unkno wn) date) unknown) (unknown) (no (unknown) (unknown) Last OB Lab (units (un known) date) Results: unknown) (unknown) (no (unknown) (unknown) 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) () (unknown) (no (unknown) (unknown) Medical History (units (unknown) date) (Updated 02/28/22 unknown) @ 08:37 by Lynne Campuzano MD) (unknown) (no (unknown) (unknown) Medication (units (unk nown) date) Instructions unknown) Recorded Confirmed Type (unknown) (no (unknown) (unknown) Meds (units (unkno wn) date) unknown) (unknown) (no (unknown) (unknown) Mother (units (unkno wn) date) Hypertension unknown) (unknown) (no (unknown) (unknown) No Known Drug (units ( unknown) date) Allergies Allergy unknown) Verified 07/05/22 10:18 (unknown) (no (unknown) (unknown) OB HPI (units (unkno wn) date) unknown) (unknown) (no (unknown) (unknown) VEGETABLE GRADER History + (units (unknown) date) Physical unknown) (unknown) (no (unknown) (unknown) Objective (units (unkn own) date) unknown) (unknown) (no (unknown) (unknown) Other Estimates (units (unknown) date) 06/26/22 LMP unknown) (Certain) 41w 2d (unknown) (no (unknown) (unknown) PFSH (units (unkno wn) date) unknown) (unknown) (no (unknown) (unknown) Past Pregnancies (units (unknown) date) unknown) (unknown) (no (unknown) (unknown) Patient: (units (unkno wn) date) Trini Lorenz unknown) MR#: [id number] (unknown) (no (unknown) (unknown) Preadmission Labs (units (unknown) date) unknown) (unknown) (no (unknown) (unknown) Prior (units (unkno wn) date) (ies) unknown) (unknown) (no (unknown) (unknown) Provider: (units (unkn own) date) Lynne Campuzano unknown) (unknown) (no (unknown) (unknown) Result Diagrams: (units (unknown) date) unknown) (unknown) (no (unknown) (unknown) Rubella Antibody (units (unknown) date) 10.5 IU/mL (>15) L unknown) 12/08/21 08:57 (unknown) (no (unknown) (unknown) S/P LEEP (loop (units (unknown) date) electrosurgical unknown) excision procedure) (-08/2014) (unknown) (no (unknown) (unknown) Signed By: (units (unk nown) date) unknown) (unknown) (no (unknown) (unknown) Smoking Status: (units (unknown) date) Never smoker unknown) (unknown) (no (unknown) (unknown) Social History (units (unknown) date) unknown) (unknown) (no (unknown) (unknown) Surgical History (units (unknown) date) (Updated 01/04/22 unknown) @ 23:05 by Paris Davalos) (unknown) (no (unknown) (unknown) Time Patient (units (u nknown) date) Seen: 08:04 unknown) (unknown) (no (unknown) (unknown) Type(s) of (units (unk nown) date) exercise: none unknown) (unknown) (no (unknown) (unknown) Varicella-Zoster (units (unknown) date) IgG Antibody 509 unknown) index (Immune >165) 12/08/21 (unknown) (no (unknown) (unknown) WG (units (unkno wn) date) unknown) (unknown) (no (unknown) (unknown) Millis teeth (units (u nknown) date) extracted () unknown) (unknown) (no (unknown) (unknown) [Embedded Image (units (unknown) date) Not Available] unknown) (unknown) (no (unknown) (unknown) alcohol intake: (units (unknown) date) former unknown) (unknown) (no (unknown) (unknown) caffeine: Yes (units ( unknown) date) (aware of 200mg unknown) daily limit) (unknown) (no (unknown) (unknown) carbon monox (units (u nknown) date) detector in home: unknown) Yes (unknown) (no (unknown) (unknown) current (units (unkno wn) date) occupational unknown) exposures/hazards: No (unknown) (no (unknown) (unknown) cy (units (unkno wn) date) unknown) (unknown) (no (unknown) (unknown) cytotec (units (unkno wn) date) unknown) (unknown) (no (unknown) (unknown) daily servings (units (unknown) date) fruits/ve-4 unknown) (unknown) (no (unknown) (unknown) do you feel safe (units (unknown) date) at home: Yes unknown) (unknown) (no (unknown) (unknown) during the past (units (unknown) date) year weight has: unknown) decreased > 10 lbs (lost 30 lbs) (unknown) (no (unknown) (unknown) eating out: (units (un known) date) rarely or never unknown) (unknown) (no (unknown) (unknown) education level: (units (unknown) date) college unknown) (unknown) (no (unknown) (unknown) fire extinguisher (units (unknown) date) in home: No unknown) (unknown) (no (unknown) (unknown) firearms in home: (units (unknown) date) No unknown) (unknown) (no (unknown) (unknown) frequency: does (units (unknown) date) not exercise unknown) (unknown) (no (unknown) (unknown) household (units (unkn own) date) members: spouse unknown) (unknown) (no (unknown) (unknown) housing: house (units (unknown) date) unknown) (unknown) (no (unknown) (unknown) marital status: (units (unknown) date) unknown) (unknown) (no (unknown) (unknown) number of (units (unkn own) date) children: 0 unknown) (unknown) (no (unknown) (unknown) occupational (units (u nknown) date) status: unemployed unknown) (unknown) (no (unknown) (unknown) pets and animals: (units (unknown) date) Yes (2 dogs) unknown) (unknown) (no (unknown) (unknown) prenat.vits,emilia,m (units (unknown) date) [id number] 1 unknown) tab PO DAILY 11/27/21 07/05/22 History (unknown) (no (unknown) (unknown) seatbelt use: (units ( unknown) date) always unknown) (unknown) (no (unknown) (unknown) second hand (units (un known) date) exposure: No unknown) (unknown) (no (unknown) (unknown) special donna (units ( unknown) date) needs: No unknown) (unknown) (no (unknown) (unknown) substance use (units ( unknown) date) type: does not use unknown) (unknown) (no (unknown) (unknown) travel history: (units (unknown) date) recent ([place] unknown) 12/2020) (unknown) (no (unknown) (unknown) water heater temp (units (unknown) date) set < 120 deg: No unknown) (unsure) (unknown) (no (unknown) (unknown) well-balanced (units ( unknown) date) diet: about half unknown) the time (unknown) (no (unknown) (unknown) working smoke (units ( unknown) date) detector in home: unknown) Yes Result panel 349 (unknown) (no (unknown) (unknown) (no value) (units (unk nown) date) unknown) (unknown) (no (unknown) (unknown) -: PAP smear: (units ( unknown) date) Normal (11/2021) unknown) (unknown) (no (unknown) (unknown) 02/17/19 8 (units (unk nown) date) spontaneous unknown) (unknown) (no (unknown) (unknown) 08:57 (units (unkno wn) date) unknown) (unknown) (no (unknown) (unknown) 07/01/22 (units (unkno wn) date) Ultrasound #1 40w unknown) 4d (unknown) (no (unknown) (unknown) 07/05/22 09:45 (units (unknown) date) unknown) (unknown) (no (unknown) (unknown) [id number] (units (unkno wn) date) unknown) (unknown) (no (unknown) (unknown) :57 (units (unkno wn) date) unknown) (unknown) (no (unknown) (unknown) Abnormal Pap (units (u nknown) date) smear of cervix unknown) (-2013) (unknown) (no (unknown) (unknown) Age/Sex: 27 / F (units (unknown) date) unknown) (unknown) (no (unknown) (unknown) Allergies (units (unkn own) date) unknown) (unknown) (no (unknown) (unknown) Allergy/AdvReac (units (unknown) date) Type Severity unknown) Reaction Status Date / Time (unknown) (no (unknown) (unknown) Anesthesia (units (unk nown) date) unknown) (unknown) (no (unknown) (unknown) Antibody Screen (units (unknown) date) Negative 07/05/22 unknown) 09:45 (unknown) (no (unknown) (unknown) Baseline (units (unknown) date) heart rate: 145 unknown) (unknown) (no (unknown) (unknown) Burger score: 2 (units (unknown) date) unknown) (unknown) (no (unknown) (unknown) Blood Type O (units (u nknown) date) Positive 07/05/22 unknown) 09:45 (unknown) (no (unknown) (unknown) Breastfeed Preg (units (unknown) date) Comp Name unknown) (unknown) (no (unknown) (unknown) Cardio (units (unkno wn) date) unknown) (unknown) (no (unknown) (unknown) Category of (units (un known) date) Tracing: Reactive unknown) (unknown) (no (unknown) (unknown) Chief complaint: (units (unknown) date) Induction unknown) (unknown) (no (unknown) (unknown) Consistency: (units (u nknown) date) medium unknown) (unknown) (no (unknown) (unknown) Contraction (units (un known) date) Frequency unknown) (minutes): 7 (unknown) (no (unknown) (unknown) Current Estimate (units (unknown) date) 11/11/22 Manual unknown) 40w 5d IVF pregnan (unknown) (no (unknown) (unknown) : 1995 (units (unknown) date) Acct:[id number] unknown) (unknown) (no (unknown) (unknown) Date Patient (units (u nknown) date) Seen: 07/05/22 unknown) (unknown) (no (unknown) (unknown) Date of Service: (units (unknown) date) 07/05/22 unknown) (unknown) (no (unknown) (unknown) Date of (units (unkno wn) date) admission: unknown) 07/05/22 (unknown) (no (unknown) (unknown) Date/Time (units (unkn own) date) unknown) (unknown) (no (unknown) (unknown) Dating criteria (units (unknown) date) OB: other (based unknown) on invitro fertilization date, c/w first (unknown) (no (unknown) (unknown) Del. Date (units (unkn own) date) GA/Weeks Labor unknown) Lgth Wt Sex Route Outcome Anesthesia Place (unknown) (no (unknown) (unknown) Delivery Date: (units (unknown) date) 02/17/19 Last unknown) Updated by: Juhi Hayes R.N. (unknown) (no (unknown) (unknown) Delv (units (unkno wn) date) unknown) (unknown) (no (unknown) (unknown) Dilation (cm): 0 (units (unknown) date) unknown) (unknown) (no (unknown) (unknown) Dilation: Closed (units (unknown) date) unknown) (unknown) (no (unknown) (unknown) LORY Calculator (units (unknown) date) unknown) (unknown) (no (unknown) (unknown) Effacement (%): 0 (units (unknown) date) unknown) (unknown) (no (unknown) (unknown) Effacement: 0-30% (units (unknown) date) unknown) (unknown) (no (unknown) (unknown) Effort + (units (unkno wn) date) Inspection: normal unknown) respiratory effort (unknown) (no (unknown) (unknown) Encounter for in (units (unknown) date) vitro unknown) fertilization () (unknown) (no (unknown) (unknown) Estimated (units (unkn own) date) Delivery Date unknown) Method Current (unknown) (no (unknown) (unknown) Estimated (units (unkn own) date) Gestational Age unknown) (weeks): 40 (unknown) (no (unknown) (unknown) Evaluation (units (unk nown) date) unknown) (unknown) (no (unknown) (unknown) Family History (units (unknown) date) (Updated 01/04/22 unknown) @ 23:06 by Paris Davalos) (unknown) (no (unknown) (unknown) Monitor (units ( unknown) date) Decelerations: unknown) Absent (unknown) (no (unknown) (unknown) Status: (units ( unknown) date) Category l unknown) (unknown) (no (unknown) (unknown) monitor (units ( unknown) date) accelerations: unknown) Present (unknown) (no (unknown) (unknown) station: -2 (units (unknown) date) unknown) (unknown) (no (unknown) (unknown) Genetic Screens: (units (unknown) date) Quad screen: unknown) Normal (unknown) (no (unknown) (unknown) Glucose 1 Hour (units (unknown) date) 133 mg/dL (76-139) unknown) 03/28/22 09:33 (unknown) (no (unknown) (unknown) Grandfather (units (un known) date) Diabetes mellitus unknown) (unknown) (no (unknown) (unknown) Grandmother (units (un known) date) Breast cancer unknown) (unknown) (no (unknown) (unknown) Grandmother (units (un known) date) Hypertension unknown) (unknown) (no (unknown) (unknown) : 2 (units (unk nown) date) unknown) (unknown) (no (unknown) (unknown) Group B (units (unkno wn) date) Streptococcus unknown) (PCR) Neg for grp b strep 06/07/22 13:51 (unknown) (no (unknown) (unknown) HENMT (units (unkno wn) date) unknown) (unknown) (no (unknown) (unknown) Head: normal to (units (unknown) date) inspection and unknown) normocephalic (unknown) (no (unknown) (unknown) Hematocrit 32.7 % (units (unknown) date) (36-46) L 07/05/22 unknown) 09:45 (unknown) (no (unknown) (unknown) Hemoglobin 10.8 (units (unknown) date) g/dL (12.0-16.0) L unknown) 07/05/22 09:45 (unknown) (no (unknown) (unknown) Hepatitis B (units (un known) date) Surface Antigen unknown) Negative s/c (NEGATIVE) 12/08/21 08 (unknown) (no (unknown) (unknown) Hepatitis C (units (un known) date) Antibody Negative unknown) s/c (NEGATIVE) 12/08/21 08:57 (unknown) (no (unknown) (unknown) History of (units (unk nown) date) Present Condition unknown) (unknown) (no (unknown) (unknown) Home Medications (units (unknown) date) and Allergies unknown) (unknown) (no (unknown) (unknown) Home Medications (units (unknown) date) unknown) (unknown) (no (unknown) (unknown) 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) unknown) (unknown) (no (unknown) (unknown) Hx of (units (unkno wn) date) tonsillectomy unknown) () (unknown) (no (unknown) (unknown) 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) unknown) (unknown) (no (unknown) (unknown) [facility] (units (unknown) date) [address]) [place] [address] (unknown) (no (unknown) (unknown) Trini is a (units (unknown) date) female who unknown) presents at 40 weeks 5 days for induction of labor (unknown) (no (unknown) (unknown) Labs (units (unkno wn) date) unknown) (unknown) (no (unknown) (unknown) Last OB Lab (units (un known) date) Results: unknown) (unknown) (no (unknown) (unknown) 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) () (unknown) (no (unknown) (unknown) Medical History (units (unknown) date) (Reviewed 07/05/22 unknown) @ 17:54 by Lynne Campuzano MD) (unknown) (no (unknown) (unknown) Medical (units (unkno wn) date) complications OB: unknown) none (unknown) (no (unknown) (unknown) Medication (units (unk nown) date) Instructions unknown) Recorded Confirmed Type (unknown) (no (unknown) (unknown) Meds (units (unkno wn) date) unknown) (unknown) (no (unknown) (unknown) Mother (units (unkno wn) date) Hypertension unknown) (unknown) (no (unknown) (unknown) Narrative: (units (unk nown) date) unknown) (unknown) (no (unknown) (unknown) No Known Drug (units ( unknown) date) Allergies Allergy unknown) Verified 07/05/22 10:18 (unknown) (no (unknown) (unknown) OB Exam (units (unkno wn) date) unknown) (unknown) (no (unknown) (unknown) OB HPI (units (unkno wn) date) unknown) (unknown) (no (unknown) (unknown) VEGETABLE GRADER History + (units (unknown) date) Physical unknown) (unknown) (no (unknown) (unknown) Objective (units (unkn own) date) unknown) (unknown) (no (unknown) (unknown) Obstetrical (units (un known) date) complications: unknown) none (unknown) (no (unknown) (unknown) Other Estimates (units (unknown) date) 06/26/22 LMP unknown) (Certain) 41w 2d (unknown) (no (unknown) (unknown) PFSH (units (unkno wn) date) unknown) (unknown) (no (unknown) (unknown) Para: 0 (units (unkno wn) date) unknown) (unknown) (no (unknown) (unknown) Past Pregnancies (units (unknown) date) unknown) (unknown) (no (unknown) (unknown) Patient: (units (unkno wn) date) Trini Lorenz unknown) MR#: [id number] (unknown) (no (unknown) (unknown) Position of (units (un known) date) cervix: posterior unknown) (unknown) (no (unknown) (unknown) Preadmission Labs (units (unknown) date) unknown) (unknown) (no (unknown) (unknown) care: (units (unknown) date) good care unknown) (unknown) (no (unknown) (unknown) Prior (units (unkno wn) date) (ies) unknown) (unknown) (no (unknown) (unknown) Provider: (units (unkn own) date) Lynne Campuzano unknown) (unknown) (no (unknown) (unknown) Rate: regular (units ( unknown) date) rate unknown) (unknown) (no (unknown) (unknown) Resp (units (unkno wn) date) unknown) (unknown) (no (unknown) (unknown) Result Diagrams: (units (unknown) date) unknown) (unknown) (no (unknown) (unknown) Rubella Antibody (units (unknown) date) 10.5 IU/mL (>15) L unknown) 12/08/21 08:57 (unknown) (no (unknown) (unknown) S/P LEEP (loop (units (unknown) date) electrosurgical unknown) excision procedure) (-08/2014) (unknown) (no (unknown) (unknown) She reports (units (unk nown) date) feeling some mild unknown) contractions past 2 days for the 1st time, nothing (unknown) (no (unknown) (unknown) Signed By: (units (unk nown) date) unknown) (unknown) (no (unknown) (unknown) Smoking Status: (units (unknown) date) Never smoker unknown) (unknown) (no (unknown) (unknown) Social History (units (unknown) date) unknown) (unknown) (no (unknown) (unknown) Surgical History (units (unknown) date) (Updated 01/04/22 unknown) @ 23:05 by Paris Davalos) (unknown) (no (unknown) (unknown) Time Patient (units (u nknown) date) Seen: 08:04 unknown) (unknown) (no (unknown) (unknown) Type(s) of (units (unk nown) date) exercise: none unknown) (unknown) (no (unknown) (unknown) Ultrasounds: (units (u nknown) date) normal 1st unknown) trimester US and normal mid trimester US (unknown) (no (unknown) (unknown) Uterine (units (unkno wn) date) Contraction unknown) Intensity: Mild (unknown) (no (unknown) (unknown) Variability: (units (u nknown) date) Average (6-10) unknown) (unknown) (no (unknown) (unknown) Varicella-Zoster (units (unknown) date) IgG Antibody 509 unknown) index (Immune >165) 12/08/21 (unknown) (no (unknown) (unknown) WG (units (unkno wn) date) unknown) (unknown) (no (unknown) (unknown) Millis teeth (units (u nknown) date) extracted (-2012) unknown) (unknown) (no (unknown) (unknown) [Embedded Image (units (unknown) date) Not Available] unknown) (unknown) (no (unknown) (unknown) alcohol intake: (units (unknown) date) former unknown) (unknown) (no (unknown) (unknown) caffeine: Yes (units ( unknown) date) (aware of 200mg unknown) daily limit) (unknown) (no (unknown) (unknown) carbon monox (units (u nknown) date) detector in home: unknown) Yes (unknown) (no (unknown) (unknown) current (units (unkno wn) date) occupational unknown) exposures/hazards: No (unknown) (no (unknown) (unknown) cy (units (unkno wn) date) unknown) (unknown) (no (unknown) (unknown) cytotec (units (unkno wn) date) unknown) (unknown) (no (unknown) (unknown) daily servings (units (unknown) date) fruits/ve-4 unknown) (unknown) (no (unknown) (unknown) do you feel safe (units (unknown) date) at home: Yes unknown) (unknown) (no (unknown) (unknown) during the past (units (unknown) date) year weight has: unknown) decreased > 10 lbs (lost 30 lbs) (unknown) (no (unknown) (unknown) eating out: (units (un known) date) rarely or never unknown) (unknown) (no (unknown) (unknown) echocardiogram (units (unknown) date) evaluation for the unknown) IVF . (unknown) (no (unknown) (unknown) education level: (units (unknown) date) college unknown) (unknown) (no (unknown) (unknown) fertilization. (units (unknown) date) has been unknown) uncomplicated. She declined (unknown) (no (unknown) (unknown) fire extinguisher (units (unknown) date) in home: No unknown) (unknown) (no (unknown) (unknown) firearms in home: (units (unknown) date) No unknown) (unknown) (no (unknown) (unknown) for post-term (units ( unknown) date) . This unknown) was conceived by in-vitro (unknown) (no (unknown) (unknown) frequency: does (units (unknown) date) not exercise unknown) (unknown) (no (unknown) (unknown) household (units (unkn own) date) members: spouse unknown) (unknown) (no (unknown) (unknown) housing: house (units (unknown) date) unknown) (unknown) (no (unknown) (unknown) marital status: (units (unknown) date) unknown) (unknown) (no (unknown) (unknown) number of (units (unkn own) date) children: 0 unknown) (unknown) (no (unknown) (unknown) occupational (units (u nknown) date) status: unemployed unknown) (unknown) (no (unknown) (unknown) pets and animals: (units (unknown) date) Yes (2 dogs) unknown) (unknown) (no (unknown) (unknown) prenat.vits,emilia,m (units (unknown) date) [id number] 1 unknown) tab PO DAILY 11/27/21 07/05/22 History (unknown) (no (unknown) (unknown) regular (units (unkno wn) date) persistent. No unknown) leakage of fluid or vaginal bleeding. (unknown) (no (unknown) (unknown) seatbelt use: (units ( unknown) date) always unknown) (unknown) (no (unknown) (unknown) second hand (units (un known) date) exposure: No unknown) (unknown) (no (unknown) (unknown) special donna (units ( unknown) date) needs: No unknown) (unknown) (no (unknown) (unknown) substance use (units ( unknown) date) type: does not use unknown) (unknown) (no (unknown) (unknown) travel history: ([facility] (unknown) date[facility] (unknown) (no (unknown) (unknown) trimester uS) (units ( unknown) date) unknown) (unknown) (no (unknown) (unknown) water heater temp (units (unknown) date) set < 120 deg: No unknown) (unsure) (unknown) (no (unknown) (unknown) well-balanced (units ( unknown) date) diet: about half unknown) the time (unknown) (no (unknown) (unknown) working smoke (units ( unknown) date) detector in home: unknown) Yes Result panel 350 (unknown) (no (unknown) (unknown) (no value) (units (unk nown) date) unknown) (unknown) (no (unknown) (unknown) -: PAP smear: (units ( unknown) date) Normal (11/2021) unknown) (unknown) (no (unknown) (unknown) 02/17/19 8 (units (unk nown) date) spontaneous unknown) (unknown) (no (unknown) (unknown) 08:57 (units (unkno wn) date) unknown) (unknown) (no (unknown) (unknown) 07/01/22 (units (unkno wn) date) Ultrasound #1 40w unknown) 4d (unknown) (no (unknown) (unknown) 07/05/22 09:45 (units (unknown) date) unknown) (unknown) (no (unknown) (unknown) 07/05/22 1804 (units ( unknown) date) unknown) (unknown) (no (unknown) (unknown) 40 week 5 day (units ( unknown) date) , unknown) post-term induction. GBS screen is negative. Her (unknown) (no (unknown) (unknown) [id number] (units (unkno wn) date) unknown) (unknown) (no (unknown) (unknown) :57 (units (unkno wn) date) unknown) (unknown) (no (unknown) (unknown) Abnormal Pap (units (u nknown) date) smear of cervix unknown) () (unknown) (no (unknown) (unknown) Age/Sex: 27 / F (units (unknown) date) unknown) (unknown) (no (unknown) (unknown) Allergies (units (unkn own) date) unknown) (unknown) (no (unknown) (unknown) Allergy/AdvReac (units (unknown) date) Type Severity unknown) Reaction Status Date / Time (unknown) (no (unknown) (unknown) Anesthesia (units (unk nown) date) unknown) (unknown) (no (unknown) (unknown) Antibody Screen (units (unknown) date) Negative 07/05/22 unknown) 09:45 (unknown) (no (unknown) (unknown) Assessment and (units (unknown) date) Plan narrative: unknown) (unknown) (no (unknown) (unknown) Assessment and (units (unknown) date) Plan unknown) (unknown) (no (unknown) (unknown) Baseline (units (unknown) date) heart rate: 145 unknown) (unknown) (no (unknown) (unknown) Burger score: 2 (units (unknown) date) unknown) (unknown) (no (unknown) (unknown) Blood Type O (units (u nknown) date) Positive 07/05/22 unknown) 09:45 (unknown) (no (unknown) (unknown) Breastfeed Preg (units (unknown) date) Comp Name unknown) (unknown) (no (unknown) (unknown) Cardio (units (unkno wn) date) unknown) (unknown) (no (unknown) (unknown) Category of (units (un known) date) Tracing: Reactive unknown) (unknown) (no (unknown) (unknown) Chief complaint: (units (unknown) date) Induction unknown) (unknown) (no (unknown) (unknown) Consistency: (units (u nknown) date) medium unknown) (unknown) (no (unknown) (unknown) Contraction (units (un known) date) Frequency unknown) (minutes): 7 (unknown) (no (unknown) (unknown) Current Estimate (units (unknown) date) 06/30/22 Manual unknown) 40w 5d IVF pregnan (unknown) (no (unknown) (unknown) : 1995 (units (unknown) date) Acct:[id number] unknown) (unknown) (no (unknown) (unknown) Date Patient (units (u nknown) date) Seen: 07/05/22 unknown) (unknown) (no (unknown) (unknown) Date of Service: (units (unknown) date) 07/05/22 unknown) (unknown) (no (unknown) (unknown) Date of (units (unkno wn) date) admission: unknown) 07/05/22 (unknown) (no (unknown) (unknown) Date/Time (units (unkn own) date) unknown) (unknown) (no (unknown) (unknown) Dating criteria (units (unknown) date) OB: other (based unknown) on invitro fertilization date, c/w first (unknown) (no (unknown) (unknown) Del. Date (units (unkn own) date) GA/Weeks Labor unknown) Lgth Wt Sex Route Outcome Anesthesia Place (unknown) (no (unknown) (unknown) Delivery Date: (units (unknown) date) 02/17/19 Last unknown) Updated by: Juhi Hayes R.N. (unknown) (no (unknown) (unknown) Delv (units (unkno wn) date) unknown) (unknown) (no (unknown) (unknown) Dilation (cm): 0 (units (unknown) date) unknown) (unknown) (no (unknown) (unknown) Dilation: Closed (units (unknown) date) unknown) (unknown) (no (unknown) (unknown) LORY Calculator (units (unknown) date) unknown) (unknown) (no (unknown) (unknown) EFM is (units (unkno wn) date) reassuring, unknown) category 1, reactive NST. (unknown) (no (unknown) (unknown) Effacement (%): 0 (units (unknown) date) unknown) (unknown) (no (unknown) (unknown) Effacement: 0-30% (units (unknown) date) unknown) (unknown) (no (unknown) (unknown) Effort + (units (unkno wn) date) Inspection: normal unknown) respiratory effort (unknown) (no (unknown) (unknown) Encounter for in (units (unknown) date) vitro unknown) fertilization () (unknown) (no (unknown) (unknown) Estimated (units (unkn own) date) Delivery Date unknown) Method Current (unknown) (no (unknown) (unknown) Estimated (units (unkn own) date) Gestational Age unknown) (weeks): 40 (unknown) (no (unknown) (unknown) Evaluation (units (unk nown) date) unknown) (unknown) (no (unknown) (unknown) Family History (units (unknown) date) (Updated 01/04/22 unknown) @ 23:06 by Paris Davalos) (unknown) (no (unknown) (unknown) Monitor (units ( unknown) date) Decelerations: unknown) Absent (unknown) (no (unknown) (unknown) (units (unkno wn) date) Presentation: unknown) vertex (unknown) (no (unknown) (unknown) Status: (units ( unknown) date) Category l unknown) (unknown) (no (unknown) (unknown) monitor (units ( unknown) date) accelerations: unknown) Present (unknown) (no (unknown) (unknown) station: -2 (units (unknown) date) unknown) (unknown) (no (unknown) (unknown) (units (unkno wn) date) unknown) (unknown) (no (unknown) (unknown) Genetic Screens: (units (unknown) date) Quad screen: unknown) Normal (unknown) (no (unknown) (unknown) Glucose 1 Hour (units (unknown) date) 133 mg/dL (76-139) unknown) 03/28/22 09:33 (unknown) (no (unknown) (unknown) Grandfather (units (un known) date) Diabetes mellitus unknown) (unknown) (no (unknown) (unknown) Grandmother (units (un known) date) Breast cancer unknown) (unknown) (no (unknown) (unknown) Grandmother (units (un known) date) Hypertension unknown) (unknown) (no (unknown) (unknown) : 2 (units (unk nown) date) unknown) (unknown) (no (unknown) (unknown) Group B (units (unkno wn) date) Streptococcus unknown) (PCR) Neg for grp b strep 06/07/22 13:51 (unknown) (no (unknown) (unknown) HENMT (units (unkno wn) date) unknown) (unknown) (no (unknown) (unknown) Head: normal to (units (unknown) date) inspection and unknown) normocephalic (unknown) (no (unknown) (unknown) Hematocrit 32.7 % (units (unknown) date) (36-46) L 07/05/22 unknown) 09:45 (unknown) (no (unknown) (unknown) Hemoglobin 10.8 (units (unknown) date) g/dL (12.0-16.0) L unknown) 07/05/22 09:45 (unknown) (no (unknown) (unknown) Hepatitis B (units (un known) date) Surface Antigen unknown) Negative s/c (NEGATIVE) 12/08/21 08 (unknown) (no (unknown) (unknown) Hepatitis C (units (un known) date) Antibody Negative unknown) s/c (NEGATIVE) 12/08/21 08:57 (unknown) (no (unknown) (unknown) History of (units (unk nown) date) Present Condition unknown) (unknown) (no (unknown) (unknown) Home Medications (units (unknown) date) and Allergies unknown) (unknown) (no (unknown) (unknown) Home Medications (units (unknown) date) unknown) (unknown) (no (unknown) (unknown) 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 (unknown) (no (unknown) (unknown) Labs (units (unkno wn) date) unknown) (unknown) (no (unknown) (unknown) Last OB Lab (units (un known) date) Results: unknown) (unknown) (no (unknown) (unknown) 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) () (unknown) (no (unknown) (unknown) Medical History (units (unknown) date) (Reviewed 07/05/22 unknown) @ 17:54 by Lynne Campuzano MD) (unknown) (no (unknown) (unknown) Medical (units (unkno wn) date) complications OB: unknown) none (unknown) (no (unknown) (unknown) Medication (units (unk nown) date) Instructions unknown) Recorded Confirmed Type (unknown) (no (unknown) (unknown) Meds (units (unkno wn) date) unknown) (unknown) (no (unknown) (unknown) Mother (units (unkno wn) date) Hypertension unknown) (unknown) (no (unknown) (unknown) Narrative: (units (unk nown) date) unknown) (unknown) (no (unknown) (unknown) No Known Drug (units ( unknown) date) Allergies Allergy unknown) Verified 07/05/22 10:18 (unknown) (no (unknown) (unknown) OB Exam (units (unkno wn) date) unknown) (unknown) (no (unknown) (unknown) OB HPI (units (unkno wn) date) unknown) (unknown) (no (unknown) (unknown) VEGETABLE GRADER History + (units (unknown) date) Physical unknown) (unknown) (no (unknown) (unknown) Objective (units (unkn own) date) unknown) (unknown) (no (unknown) (unknown) Obstetrical (units (un known) date) complications: unknown) none (unknown) (no (unknown) (unknown) Other Estimates (units (unknown) date) 06/26/22 LMP unknown) (Certain) 41w 2d (unknown) (no (unknown) (unknown) PFSH (units (unkno wn) date) unknown) (unknown) (no (unknown) (unknown) Para: 0 (units (unkno wn) date) unknown) (unknown) (no (unknown) (unknown) Past Pregnancies (units (unknown) date) unknown) (unknown) (no (unknown) (unknown) Patient: (units (unkno wn) date) Trini Lorenz unknown) MR#: [id number] (unknown) (no (unknown) (unknown) Position of (units (un known) date) cervix: posterior unknown) (unknown) (no (unknown) (unknown) Preadmission Labs (units (unknown) date) unknown) (unknown) (no (unknown) (unknown) care: (units (unknown) date) good care unknown) (unknown) (no (unknown) (unknown) Prior (units (unkno wn) date) (ies) unknown) (unknown) (no (unknown) (unknown) Provider: (units (unkn own) date) Lynne Campuzano unknown) (unknown) (no (unknown) (unknown) Rate: regular (units ( unknown) date) rate unknown) (unknown) (no (unknown) (unknown) Resp (units (unkno wn) date) unknown) (unknown) (no (unknown) (unknown) Result Diagrams: (units (unknown) date) unknown) (unknown) (no (unknown) (unknown) Rubella Antibody (units (unknown) date) 10.5 IU/mL (>15) L unknown) 12/08/21 08:57 (unknown) (no (unknown) (unknown) S/P LEEP (loop (units (unknown) date) electrosurgical unknown) excision procedure) (-08/2014) (unknown) (no (unknown) (unknown) She reports (units (unk nown) date) feeling some mild unknown) contractions past 2 days for the 1st time, nothing (unknown) (no (unknown) (unknown) Signed (units (unkno wn) date) By:<Electronically unknown) signed by Lynne Campuzano MD> (unknown) (no (unknown) (unknown) Smoking Status: (units (unknown) date) Never smoker unknown) (unknown) (no (unknown) (unknown) Social History (units (unknown) date) unknown) (unknown) (no (unknown) (unknown) Surgical History (units (unknown) date) (Updated 01/04/22 unknown) @ 23:05 by Paris Davalos) (unknown) (no (unknown) (unknown) Time Patient (units (u nknown) date) Seen: 08:04 unknown) (unknown) (no (unknown) (unknown) Time Spent with (units (unknown) date) Patient unknown) (unknown) (no (unknown) (unknown) Total time spent (units (unknown) date) with greater than unknown) 50% in coordination of care (as documented) (unknown) (no (unknown) (unknown) Type(s) of (units (unk nown) date) exercise: none unknown) (unknown) (no (unknown) (unknown) Ultrasounds: (units (u nknown) date) normal 1st unknown) trimester US and normal mid trimester US (unknown) (no (unknown) (unknown) Uterine (units (unkno wn) date) Contraction unknown) Intensity: Mild (unknown) (no (unknown) (unknown) Variability: (units (u nknown) date) Average (6-10) unknown) (unknown) (no (unknown) (unknown) Varicella-Zoster (units (unknown) date) IgG Antibody 509 unknown) index (Immune >165) 12/08/21 (unknown) (no (unknown) (unknown) WG (units (unkno wn) date) unknown) (unknown) (no (unknown) (unknown) Will start with (units (unknown) date) oral misoprostol unknown) 50 mcg for cervical ripening, reassess after 4 (unknown) (no (unknown) (unknown) Millis teeth (units (u nknown) date) extracted () unknown) (unknown) (no (unknown) (unknown) [Embedded Image (units (unknown) date) Not Available] unknown) (unknown) (no (unknown) (unknown) alcohol intake: (units (unknown) date) former unknown) (unknown) (no (unknown) (unknown) at patient's (units (u nknown) date) floor/unit and/or unknown) counseling patient:: 15-24 minutes (unknown) (no (unknown) (unknown) caffeine: Yes (units ( unknown) date) (aware of 200mg unknown) daily limit) (unknown) (no (unknown) (unknown) carbon monox (units (u nknown) date) detector in home: unknown) Yes (unknown) (no (unknown) (unknown) cervix is (units (unkn own) date) unfavorable. unknown) (unknown) (no (unknown) (unknown) current (units (unkno wn) date) occupational unknown) exposures/hazards: No (unknown) (no (unknown) (unknown) cy (units (unkno wn) date) unknown) (unknown) (no (unknown) (unknown) cytotec (units (unkno wn) date) unknown) (unknown) (no (unknown) (unknown) daily servings (units (unknown) date) fruits/ve-4 unknown) (unknown) (no (unknown) (unknown) do you feel safe (units (unknown) date) at home: Yes unknown) (unknown) (no (unknown) (unknown) during the past (units (unknown) date) year weight has: unknown) decreased > 10 lbs (lost 30 lbs) (unknown) (no (unknown) (unknown) eating out: (units (un known) date) rarely or never unknown) (unknown) (no (unknown) (unknown) echocardiogram (units (unknown) date) evaluation for the unknown) IVF . (unknown) (no (unknown) (unknown) education level: (units (unknown) date) college unknown) (unknown) (no (unknown) (unknown) fertilization. (units (unknown) date) has been unknown) uncomplicated. She declined (unknown) (no (unknown) (unknown) fire extinguisher (units (unknown) date) in home: No unknown) (unknown) (no (unknown) (unknown) firearms in home: (units (unknown) date) No unknown) (unknown) (no (unknown) (unknown) for post-term (units ( unknown) date) . This unknown) was conceived by in-vitro (unknown) (no (unknown) (unknown) frequency: does (units (unknown) date) not exercise unknown) (unknown) (no (unknown) (unknown) hours regarding (units (unknown) date) repeat dose. unknown) (unknown) (no (unknown) (unknown) household (units (unkn own) date) members: spouse unknown) (unknown) (no (unknown) (unknown) housing: house (units (unknown) date) unknown) (unknown) (no (unknown) (unknown) marital status: (units (unknown) date) unknown) (unknown) (no (unknown) (unknown) number of (units (unkn own) date) children: 0 unknown) (unknown) (no (unknown) (unknown) occupational (units (u nknown) date) status: unemployed unknown) (unknown) (no (unknown) (unknown) pets and animals: (units (unknown) date) Yes (2 dogs) unknown) (unknown) (no (unknown) (unknown) prenat.vits,emilia,m (units (unknown) date) [id number] 1 unknown) tab PO DAILY 11/27/21 07/05/22 History (unknown) (no (unknown) (unknown) regular (units (unkno wn) date) persistent. No unknown) leakage of fluid or vaginal bleeding. (unknown) (no (unknown) (unknown) seatbelt use: (units ( unknown) date) always unknown) (unknown) (no (unknown) (unknown) second hand (units (un known) date) exposure: No unknown) (unknown) (no (unknown) (unknown) special donna (units ( unknown) date) needs: No unknown) (unknown) (no (unknown) (unknown) substance use (units ( unknown) date) type: does not use unknown) (unknown) (no (unknown) (unknown) travel history: [facility] ([facility]) date[facility] (unknown) (no (unknown) (unknown) trimester uS) (units ( unknown) date) unknown) (unknown) (no (unknown) (unknown) water heater temp (units (unknown) date) set < 120 deg: No unknown) (unsure) (unknown) (no (unknown) (unknown) well-balanced (units ( unknown) date) diet: about half unknown) the time (unknown) (no (unknown) (unknown) working smoke (units ( unknown) date) detector in home: unknown) Yes Result panel 351 (unknown) (no (unknown) (unknown) (no value) (units (unk nown) date) unknown) (unknown) (no (unknown) (unknown) (past 8 hours): (units (unknown) date) unknown) (unknown) (no (unknown) (unknown) 09:00 09:45 (units (un known) date) 09:45 unknown) (unknown) (no (unknown) (unknown) 1 tab PO DAILY (units (unknown) date) unknown) (unknown) (no (unknown) (unknown) 10:49 (units (unkno wn) date) unknown) (unknown) (no (unknown) (unknown) 07/05/22 07:26 (units (unknown) date) unknown) (unknown) (no (unknown) (unknown) 07/05/22 09:45 (units (unknown) date) unknown) (unknown) (no (unknown) (unknown) 07/05/22 (units (unkno wn) date) 07/05/22 unknown) 07/05/22 (unknown) (no (unknown) (unknown) 07/05/22 1815 (units ( unknown) date) unknown) (unknown) (no (unknown) (unknown) 07/05/22 (units (unkno wn) date) unknown) (unknown) (no (unknown) (unknown) 40 week 5day (units (u nknown) date) unknown) (unknown) (no (unknown) (unknown) [id number] (units (unkno wn) date) unknown) (unknown) (no (unknown) (unknown) Age/Sex: 27 / F (units (unknown) date) unknown) (unknown) (no (unknown) (unknown) Lynne Grimm (units (unkn own) date) MD Tatianna unknown) (unknown) (no (unknown) (unknown) Antibody Screen (units (unknown) date) Negative unknown) (unknown) (no (unknown) (unknown) Attending (units (unkn own) date) Provider: unknown) Lynne Campuzano (unknown) (no (unknown) (unknown) BP 123/72 Temp (units (unknown) date) 36.6C unknown) (unknown) (no (unknown) (unknown) Baso # (Auto) 0 (units (unknown) date) unknown) (unknown) (no (unknown) (unknown) Baso % (Auto) (units ( unknown) date) 0.2 unknown) (unknown) (no (unknown) (unknown) Blood Type O (units (u nknown) date) Positive unknown) (unknown) (no (unknown) (unknown) Call for (units (unkno wn) date) regular strong unknown) contractions, vaginal bleeding, any watery vaginal (unknown) (no (unknown) (unknown) Cervical exam (units ( unknown) date) at 3:15 p.m.: unknown) 0/20%/-2. Cervix medium consistency (unknown) (no (unknown) (unknown) Cognitive/behav (units (unknown) date) ioral status at unknown) discharge: oriented (unknown) (no (unknown) (unknown) Continued (units (unkn own) date) unknown) (unknown) (no (unknown) (unknown) : 1995 (units (unknown) date) Acct:[id number] unknown) (unknown) (no (unknown) (unknown) Date Patient (units (u nknown) date) Seen: 07/05/22 unknown) (unknown) (no (unknown) (unknown) Date of (units (unkno wn) date) Service: unknown) 07/05/22 (unknown) (no (unknown) (unknown) Date of (units (unkno wn) date) admission: unknown) (unknown) (no (unknown) (unknown) Diagnoses: (units (unk nown) date) unknown) (unknown) (no (unknown) (unknown) Diet/Activity/T (units (unknown) date) reatments unknown) (unknown) (no (unknown) (unknown) Diet: Regular (units ( unknown) date) unknown) (unknown) (no (unknown) (unknown) Discharge Data (units (unknown) date) unknown) (unknown) (no (unknown) (unknown) Discharge Date: (units (unknown) date) 07/05/22 unknown) (unknown) (no (unknown) (unknown) Discharge (units (unkn own) date) Health Status unknown) (unknown) (no (unknown) (unknown) Discharge Plan (units (unknown) date) unknown) (unknown) (no (unknown) (unknown) Discharge (units (unkn own) date) Providers unknown) (unknown) (no (unknown) (unknown) Discharge (units (unkn own) date) Summary unknown) (unknown) (no (unknown) (unknown) Discharge home (units (unknown) date) overnight. unknown) Return tomorrow morning or when directed, to continue (unknown) (no (unknown) (unknown) Discharge (units (unkn own) date) orders + unknown) Medications (unknown) (no (unknown) (unknown) Discharge (units (unkn own) date) provider: unknown) (unknown) (no (unknown) (unknown) Eos # (Auto) 0 (units (unknown) date) unknown) (unknown) (no (unknown) (unknown) Eos % (Auto) (units (u nknown) date) 0.1 L unknown) (unknown) (no (unknown) (unknown) Exam Narrative: (units (unknown) date) unknown) (unknown) (no (unknown) (unknown) Exam (units (unkno wn) date) unknown) (unknown) (no (unknown) (unknown) Follow (units (unkno wn) date) up/Referrals: unknown) (unknown) (no (unknown) (unknown) Functional (units (unk nown) date) status at unknown) discharge: independent ambulation (unknown) (no (unknown) (unknown) General: She (units (u nknown) date) appears unknown) comfortable, no acute distress. No discomfort with (unknown) (no (unknown) (unknown) Hct 32.7 L (units (unk nown) date) unknown) (unknown) (no (unknown) (unknown) Hgb 10.8 L (units (unk nown) date) unknown) (unknown) (no (unknown) (unknown) Hospital Course (units (unknown) date) unknown) (unknown) (no (unknown) (unknown) Hospital (units (unkno wn) date) Course: unknown) (unknown) (no (unknown) (unknown) [facility] (units (unknown) date) [address] [place] [address] unknown) [place] [address] (unknown) (no (unknown) (unknown) Jodee Schmid (units (unknown) date) presley, ENAMEL BURNER unknown) [Primary Care Provider] (unknown) (no (unknown) (unknown) Trini is a (units (u nknown) date) 27-year-old unknown) female who was admitted this morning for cervical (unknown) (no (unknown) (unknown) Laboratory (units (unk nown) date) Results - last unknown) 24 hr (unknown) (no (unknown) (unknown) Labs (units (unkno wn) date) unknown) (unknown) (no (unknown) (unknown) Labs: (units (unkno wn) date) unknown) (unknown) (no (unknown) (unknown) Lymph # (Auto) (units (unknown) date) 1800 unknown) (unknown) (no (unknown) (unknown) Lymph % (Auto) (units (unknown) date) 16.4 L unknown) (unknown) (no (unknown) (unknown) MCH 28.4 (units (unkno wn) date) unknown) (unknown) (no (unknown) (unknown) MCHC 33.0 (units (unkn own) date) unknown) (unknown) (no (unknown) (unknown) MCV 86.2 (units (unkno wn) date) unknown) (unknown) (no (unknown) (unknown) [place] # (Auto) (units ( unknown) date) 1000 H unknown) (unknown) (no (unknown) (unknown) [place] % (Auto) (units ( unknown) date) 8.7 unknown) (unknown) (no (unknown) (unknown) Multidrug (units (unkn own) date) resistant unknown) organism: No MDRO (unknown) (no (unknown) (unknown) Narrative (units (unkn own) date) unknown) (unknown) (no (unknown) (unknown) Neut # (Auto) (units ( unknown) date) 8400 H unknown) (unknown) (no (unknown) (unknown) Neut % (Auto) (units ( unknown) date) 74.6 unknown) (unknown) (no (unknown) (unknown) No signs of (units (un known) date) active labor. unknown) Birthing center has become full since her admission (unknown) (no (unknown) (unknown) Objective (units (unkn own) date) unknown) (unknown) (no (unknown) (unknown) On exam her (units (unk nown) date) cervix has some unknown) subtle changes, cervix closed/20%/midpo sition/medium (unknown) (no (unknown) (unknown) Overall status (units (unknown) date) at discharge: unknown) patient is back to baseline (unknown) (no (unknown) (unknown) Patient (units (unkno wn) date) Disposition: unknown) Home (unknown) (no (unknown) (unknown) Patient: (units (unkno wn) date) Trini Lorenz unknown) MR#: [id number] (unknown) (no (unknown) (unknown) Plt Count 294 (units ( unknown) date) unknown) (unknown) (no (unknown) (unknown) Prescriptions: (units (unknown) date) unknown) (unknown) (no (unknown) (unknown) Primary Care (units (u nknown) date) Provider: unknown) Parris Schmid (unknown) (no (unknown) (unknown) Primary care (units (u nknown) date) physician: unknown) (unknown) (no (unknown) (unknown) Provider (units (unkno wn) date) Discharge unknown) Comment: status post cervical ripening for labor induction (unknown) (no (unknown) (unknown) Provider (units (unkno wn) date) unknown) (unknown) (no (unknown) (unknown) Provider: (units (unkn own) date) Lynne Campuzano unknown) Sirisha WYLIE (unknown) (no (unknown) (unknown) RBC 3.79 L (units (unk nown) date) unknown) (unknown) (no (unknown) (unknown) RDW 14.1 (units (unkno wn) date) unknown) (unknown) (no (unknown) (unknown) Report to your (units (unknown) date) healthcare unknown) provider any signs of infection, such as:: chills, (unknown) (no (unknown) (unknown) Result (units (unkno wn) date) Diagrams: unknown) (unknown) (no (unknown) (unknown) SARS-CoV-2 (units (unk nown) date) (PCR) Negative unknown) (unknown) (no (unknown) (unknown) Britt (units (unkno wn) date) BRENDA Schmid unknown) (unknown) (no (unknown) (unknown) Signed (units (unkno wn) date) By:<Electronical unknown) ly signed by Lynne Campuzano MD> (unknown) (no (unknown) (unknown) Signs and (units (unkn own) date) symptoms of unknown) labor reviewed. She was instructed to call for any signs (unknown) (no (unknown) (unknown) Skin/Wound/Dres (units (unknown) date) sing Care unknown) (unknown) (no (unknown) (unknown) Status at (units (unkn own) date) Discharge unknown) (unknown) (no (unknown) (unknown) Summary (units (unkno wn) date) unknown) (unknown) (no (unknown) (unknown) Temperature (units (un known) date) 97.6 F unknown) (unknown) (no (unknown) (unknown) Time Patient (units (u nknown) date) Seen: 15:15 unknown) (unknown) (no (unknown) (unknown) Time Spent with (units (unknown) date) Patient unknown) (unknown) (no (unknown) (unknown) Time (units (unkno wn) date) attestation: unknown) (unknown) (no (unknown) (unknown) Time spent: (units (un known) date) Less than 30 unknown) minutes (unknown) (no (unknown) (unknown) Total time (units (unk nown) date) spent providing unknown) and/or coordinating discharge services: (unknown) (no (unknown) (unknown) Vital Signs (units (un known) date) unknown) (unknown) (no (unknown) (unknown) WBC 11.2 H (units (unk nown) date) unknown) (unknown) (no (unknown) (unknown) [Embedded Image (units (unknown) date) Not Available] unknown) (unknown) (no (unknown) (unknown) abdominal (units (unkn own) date) tightening, but unknown) nothing regular or strong. No leakage of fluid or (unknown) (no (unknown) (unknown) after the (units (unkn own) date) misoprostol, but unknown) this has decreased. She is noting occasional (unknown) (no (unknown) (unknown) be rescheduled (units ( unknown) date) at a later time, unknown) at this time hopefully to return in the morning. (unknown) (no (unknown) (unknown) birthing (units (unkno wn) date) center, unknown) discussed with her per charge nurse, we do not have the (unknown) (no (unknown) (unknown) birthing (units (unkno wn) date) center. unknown) (unknown) (no (unknown) (unknown) consistency. (units (u nknown) date) Vertex is unknown) palpable right above the cervix but still -2. (unknown) (no (unknown) (unknown) continued (units (unkn own) date) cervical unknown) ripening, or any labor. We need to put the induction on hold (unknown) (no (unknown) (unknown) contractions. (units ( unknown) date) unknown) (unknown) (no (unknown) (unknown) discharge to (units (u nknown) date) home in that unknown) case with the long delay. (unknown) (no (unknown) (unknown) discharge to (units (u nknown) date) home rather than unknown) sleeping here awaiting a bed, since induction (unknown) (no (unknown) (unknown) discharge, or (units ( unknown) date) leaking of unknown) fluid. Call for decreased movement. (unknown) (no (unknown) (unknown) dose of (units (unkno wn) date) misoprostol 50 unknown) mcg by mouth. She developed some mild cramping initially (unknown) (no (unknown) (unknown) fever and (units (unkn own) date) increased pain unknown) (unknown) (no (unknown) (unknown) misoprostol. (units (u nknown) date) unknown) (unknown) (no (unknown) (unknown) more frequent (units ( unknown) date) proximally every unknown) 3 minutes but now have spaced, now 4 hours after (unknown) (no (unknown) (unknown) of labor, (units (unkn own) date) leakage of unknown) fluid, vaginal bleeding or decreased movement. She (unknown) (no (unknown) (unknown) prenat.vits,emilia (units (unknown) date) ,[id number] unknown) Tablet (unknown) (no (unknown) (unknown) reassuring (units (unk nown) date) 5-1/2 hours unknown) after the misoprostol, she was discharged home. She will (unknown) (no (unknown) (unknown) ripening, to (units (u nknown) date) start induction unknown) of labor for post-term . She was given 1 (unknown) (no (unknown) (unknown) staffing, (units (unkn own) date) nursing to be unknown) able to monitor patient and her baby this evening with (unknown) (no (unknown) (unknown) the induction. (units (unknown) date) unknown) (unknown) (no (unknown) (unknown) this morning, (units ( unknown) date) with additional unknown) patient's arriving in labor. Due to the busy (unknown) (no (unknown) (unknown) understanding. (units (unknown) date) Since patient is unknown) not in labor and EFM is reassuring, discussed (unknown) (no (unknown) (unknown) vaginal (units (unkno wn) date) bleeding. EFM is unknown) category 1, reassuring. Contractions initially were (unknown) (no (unknown) (unknown) was monitored (units ( unknown) date) for an unknown) additional hour and with contractions spaced and EFM (unknown) (no (unknown) (unknown) with one dose (units ( unknown) date) of Misoprostil. unknown) Induction of labor currently on hold due to full (unknown) (no (unknown) (unknown) with outpatient (units (unknown) date) currently being unknown) in active labor. Patient and (unknown) (no (unknown) (unknown) would currently (units (unknown) date) be on hold until unknown) at least tomorrow morning. She did desire Result panel 352 (unknown) (no (unknown) (unknown) (no value) (units (unk nown) date) unknown) (unknown) (no (unknown) (unknown) 02/17/19 8 (units (unk nown) date) spontaneous unknown) (unknown) (no (unknown) (unknown) 08:57 (units (unkno wn) date) unknown) (unknown) (no (unknown) (unknown) 07/01/22 (units (unkno wn) date) Ultrasound #1 40w unknown) 6d (unknown) (no (unknown) (unknown) [id number] (units (unkno wn) date) unknown) (unknown) (no (unknown) (unknown) :57 (units (unkno wn) date) unknown) (unknown) (no (unknown) (unknown) Abnormal Pap (units (u nknown) date) smear of cervix unknown) () (unknown) (no (unknown) (unknown) Age/Sex: 27 / F (units (unknown) date) unknown) (unknown) (no (unknown) (unknown) Allergies (units (unkn own) date) unknown) (unknown) (no (unknown) (unknown) Allergy/AdvReac (units (unknown) date) Type Severity unknown) Reaction Status Date / Time (unknown) (no (unknown) (unknown) Anesthesia (units (unk nown) date) unknown) (unknown) (no (unknown) (unknown) Antibody Screen (units (unknown) date) Negative 07/05/22 unknown) 09:45 (unknown) (no (unknown) (unknown) Baseline (units (unknown) date) heart rate: 145 unknown) (unknown) (no (unknown) (unknown) Blood Type O (units (u nknown) date) Positive 07/05/22 unknown) 09:45 (unknown) (no (unknown) (unknown) Breastfeed Preg (units (unknown) date) Comp Name unknown) (unknown) (no (unknown) (unknown) Category of (units (un known) date) Tracing: Reactive unknown) (unknown) (no (unknown) (unknown) Chief complaint: (units (unknown) date) Labor unknown) (unknown) (no (unknown) (unknown) Contraction (units (un known) date) Frequency unknown) (minutes): 9 (unknown) (no (unknown) (unknown) Current Estimate (units (unknown) date) 06/30/22 Manual unknown) 41w 0d IVF pregnan (unknown) (no (unknown) (unknown) : 1995 (units (unknown) date) Acct:[id number] unknown) (unknown) (no (unknown) (unknown) Date Patient (units (u nknown) date) Seen: 07/07/22 unknown) (unknown) (no (unknown) (unknown) Date of Service: (units (unknown) date) 07/07/22 unknown) (unknown) (no (unknown) (unknown) Date of (units (unkno wn) date) admission: unknown) 07/07/22 (unknown) (no (unknown) (unknown) Date/Time (units (unkn own) date) unknown) (unknown) (no (unknown) (unknown) Dating criteria (units (unknown) date) OB: other (IVF, unknown) (+c/w first trimester US)) (unknown) (no (unknown) (unknown) Del. Date (units (unkn own) date) GA/Weeks Labor unknown) Lgth Wt Sex Route Outcome Anesthesia Place (unknown) (no (unknown) (unknown) Delivery Date: (units (unknown) date) 02/17/19 Last unknown) Updated by: Juhi Hayes R.N. (unknown) (no (unknown) (unknown) Delv (units (unkno wn) date) unknown) (unknown) (no (unknown) (unknown) LORY Calculator (units (unknown) date) unknown) (unknown) (no (unknown) (unknown) Encounter for in (units (unknown) date) vitro unknown) fertilization () (unknown) (no (unknown) (unknown) Estimated (units (unkn own) date) Delivery Date unknown) Method Current (unknown) (no (unknown) (unknown) Estimated (units (unkn own) date) Gestational Age unknown) (weeks): 41 (unknown) (no (unknown) (unknown) Evaluation (units (unk nown) date) unknown) (unknown) (no (unknown) (unknown) Family History (units (unknown) date) (Updated 01/04/22 unknown) @ 23:06 by Paris Davalos) (unknown) (no (unknown) (unknown) Monitor (units ( unknown) date) Decelerations: unknown) Absent (unknown) (no (unknown) (unknown) Status: (units ( unknown) date) Category l unknown) (unknown) (no (unknown) (unknown) monitor (units ( unknown) date) accelerations: unknown) Present (unknown) (no (unknown) (unknown) Glucose 1 Hour (units (unknown) date) 133 mg/dL (76-139) unknown) 03/28/22 09:33 (unknown) (no (unknown) (unknown) Grandfather (units (un known) date) Diabetes mellitus unknown) (unknown) (no (unknown) (unknown) Grandmother (units (un known) date) Breast cancer unknown) (unknown) (no (unknown) (unknown) Grandmother (units (un known) date) Hypertension unknown) (unknown) (no (unknown) (unknown) : 2 (units (unk nown) date) unknown) (unknown) (no (unknown) (unknown) Group B (units (unkno wn) date) Streptococcus unknown) (PCR) Neg for grp b strep 06/07/22 13:51 (unknown) (no (unknown) (unknown) Hematocrit 32.7 % (units (unknown) date) (36-46) L 07/05/22 unknown) 09:45 (unknown) (no (unknown) (unknown) Hemoglobin 10.8 (units (unknown) date) g/dL (12.0-16.0) L unknown) 07/05/22 09:45 (unknown) (no (unknown) (unknown) Hepatitis B (units (un known) date) Surface Antigen unknown) Negative s/c (NEGATIVE) 12/08/21 08 (unknown) (no (unknown) (unknown) Hepatitis C (units (un known) date) Antibody Negative unknown) s/c (NEGATIVE) 12/08/21 08:57 (unknown) (no (unknown) (unknown) History of (units (unk nown) date) Present Condition unknown) (unknown) (no (unknown) (unknown) Home Medications (units (unknown) date) and Allergies unknown) (unknown) (no (unknown) (unknown) Home Medications (units (unknown) date) unknown) (unknown) (no (unknown) (unknown) 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) unknown) (unknown) (no (unknown) (unknown) Hx of (units (unkno wn) date) tonsillectomy unknown) (-2009) (unknown) (no (unknown) (unknown) Infertility (units (un known) date) () unknown) (unknown) (no (unknown) (unknown) [facility] (units (unknown) date) [address] [place] [address] unknown) [place] [address] (unknown) (no (unknown) (unknown) Last OB Lab (units (un known) date) Results: unknown) (unknown) (no (unknown) (unknown) 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) () (unknown) (no (unknown) (unknown) Medical History (units (unknown) date) (Reviewed 07/05/22 unknown) @ 17:54 by Lynne Campuzano MD) (unknown) (no (unknown) (unknown) Medical (units (unkno wn) date) complications OB: unknown) none (unknown) (no (unknown) (unknown) Medication (units (unk nown) date) Instructions unknown) Recorded Confirmed Type (unknown) (no (unknown) (unknown) Meds (units (unkno wn) date) unknown) (unknown) (no (unknown) (unknown) Mother (units (unkno wn) date) Hypertension unknown) (unknown) (no (unknown) (unknown) No Known Drug (units ( unknown) date) Allergies Allergy unknown) Verified 07/05/22 10:18 (unknown) (no (unknown) (unknown) OB HPI (units (unkno wn) date) unknown) (unknown) (no (unknown) (unknown) VEGETABLE GRADER History + (units (unknown) date) Physical unknown) (unknown) (no (unknown) (unknown) Obstetrical (units (un known) date) complications: unknown) none (unknown) (no (unknown) (unknown) Other Estimates (units (unknown) date) 06/26/22 LMP unknown) (Certain) 41w 4d (unknown) (no (unknown) (unknown) PFSH (units (unkno wn) date) unknown) (unknown) (no (unknown) (unknown) Para: 0 (units (unkno wn) date) unknown) (unknown) (no (unknown) (unknown) Past Pregnancies (units (unknown) date) unknown) (unknown) (no (unknown) (unknown) Patient: (units (unkno wn) date) Trini Lorenz unknown) MR#: [id number] (unknown) (no (unknown) (unknown) Preadmission Labs (units (unknown) date) unknown) (unknown) (no (unknown) (unknown) Prior (units (unkno wn) date) (ies) unknown) (unknown) (no (unknown) (unknown) Provider: (units (unkn own) date) Lynne Campuzano unknown) (unknown) (no (unknown) (unknown) Rubella Antibody (units (unknown) date) 10.5 IU/mL (>15) L unknown) 12/08/21 08:57 (unknown) (no (unknown) (unknown) S/P LEEP (loop (units (unknown) date) electrosurgical unknown) excision procedure) (-08/2014) (unknown) (no (unknown) (unknown) Signed By: (units (unk nown) date) unknown) (unknown) (no (unknown) (unknown) Smoking Status: (units (unknown) date) Never smoker unknown) (unknown) (no (unknown) (unknown) Social History (units (unknown) date) unknown) (unknown) (no (unknown) (unknown) Surgical History (units (unknown) date) (Updated 01/04/22 unknown) @ 23:05 by Paris Davalos) (unknown) (no (unknown) (unknown) Time Patient (units (u nknown) date) Seen: 19:53 unknown) (unknown) (no (unknown) (unknown) Type(s) of (units (unk nown) date) exercise: none unknown) (unknown) (no (unknown) (unknown) Ultrasounds: (units (u nknown) date) normal 1st unknown) trimester US and normal mid trimester US (unknown) (no (unknown) (unknown) Uterine (units (unkno wn) date) Contraction unknown) Intensity: Mild (unknown) (no (unknown) (unknown) Variability: (units (u nknown) date) Moderate (11-25) unknown) (unknown) (no (unknown) (unknown) Varicella-Zoster (units (unknown) date) IgG Antibody 509 unknown) index (Immune >165) 12/08/21 (unknown) (no (unknown) (unknown) WG (units (unkno wn) date) unknown) (unknown) (no (unknown) (unknown) Millis teeth (units (u nknown) date) extracted () unknown) (unknown) (no (unknown) (unknown) alcohol intake: (units (unknown) date) former unknown) (unknown) (no (unknown) (unknown) caffeine: Yes (units ( unknown) date) (aware of 200mg unknown) daily limit) (unknown) (no (unknown) (unknown) carbon monox (units (u nknown) date) detector in home: unknown) Yes (unknown) (no (unknown) (unknown) current (units (o wn) date) occupational unknown) exposures/hazards: No (unknown) (no (unknown) (unknown) cy (units (unkno wn) date) unknown) (unknown) (no (unknown) (unknown) cytotec (units (unkno wn) date) unknown) (unknown) (no (unknown) (unknown) daily servings (units (unknown) date) fruits/ve-4 unknown) (unknown) (no (unknown) (unknown) do you feel safe (units (unknown) date) at home: Yes unknown) (unknown) (no (unknown) (unknown) during the past (units (unknown) date) year weight has: unknown) decreased > 10 lbs (lost 30 lbs) (unknown) (no (unknown) (unknown) eating out: (units (un known) date) rarely or never unknown) (unknown) (no (unknown) (unknown) education level: (units (unknown) date) college unknown) (unknown) (no (unknown) (unknown) fire extinguisher (units (unknown) date) in home: No unknown) (unknown) (no (unknown) (unknown) firearms in home: (units (unknown) date) No unknown) (unknown) (no (unknown) (unknown) frequency: does (units (unknown) date) not exercise unknown) (unknown) (no (unknown) (unknown) household (units (unkn own) date) members: spouse unknown) (unknown) (no (unknown) (unknown) housing: house (units (unknown) date) unknown) (unknown) (no (unknown) (unknown) marital status: (units (unknown) date) unknown) (unknown) (no (unknown) (unknown) number of (units (unkn own) date) children: 0 unknown) (unknown) (no (unknown) (unknown) occupational (units (u nknown) date) status: unemployed unknown) (unknown) (no (unknown) (unknown) pets and animals: (units (unknown) date) Yes (2 dogs) unknown) (unknown) (no (unknown) (unknown) prenat.vits,emilia,m (units (unknown) date) [id number] 1 unknown) tab PO DAILY 11/27/21 07/07/22 History (unknown) (no (unknown) (unknown) seatbelt use: (units ( unknown) date) always unknown) (unknown) (no (unknown) (unknown) second hand (units (un known) date) exposure: No unknown) (unknown) (no (unknown) (unknown) special donna (units ( unknown) date) needs: No unknown) (unknown) (no (unknown) (unknown) substance use (units ( unknown) date) type: does not use unknown) (unknown) (no (unknown) (unknown) travel history: (units (unknown) date) recent ([place] unknown) 12/2020) (unknown) (no (unknown) (unknown) water heater temp (units (unknown) date) set < 120 deg: No unknown) (unsure) (unknown) (no (unknown) (unknown) well-balanced (units ( unknown) date) diet: about half unknown) the time (unknown) (no (unknown) (unknown) working smoke (units ( unknown) date) detector in home: unknown) Yes Result panel 353 (unknown) (no date) (unknown) (unknown) 0 /ul (unkn own) (unknown) (no date) (unknown) (unknown) 0 /ul (unkn own) (unknown) (no date) (unknown) (unknown) 0.2 % (unkn own) (unknown) (no date) (unknown) (unknown) 0.2 % (unkn own) (unknown) (no date) (unknown) (unknown) 10.0 g/dl (unkn own) (unknown) (no date) (unknown) (unknown) 10.4 x10 3/ul (unkn own) (unknown) (no date) (unknown) (unknown) 14.4 % (unkn own) (unknown) (no date) (unknown) (unknown) 17.1 % (unkn own) (unknown) (no date) (unknown) (unknown) 1800 /ul (unkn own) (unknown) (no date) (unknown) (unknown) 28.2 pg (unkn own) (unknown) (no date) (unknown) (unknown) 296 x10 3/ul (unkn own) (unknown) (no date) (unknown) (unknown) 3.56 x10 6/ul (unkn own) (unknown) (no date) (unknown) (unknown) 30.7 % (unkn own) (unknown) (no date) (unknown) (unknown) 32.7 % (unkn own) (unknown) (no date) (unknown) (unknown) 73.5 % (unkn own) (unknown) (no date) (unknown) (unknown) 7600 /ul (unkn own) (unknown) (no date) (unknown) (unknown) 86.3 fl (unkn own) (unknown) (no date) (unknown) (unknown) 9.0 % (unkn own) (unknown) (no date) (unknown) (unknown) 900 /ul (unkn own) Result panel 354 (unknown) (no (unknown) (unknown) (no value) (units (unk nown) date) unknown) (unknown) (no (unknown) (unknown) 02/17/19 8 (units (unk nown) date) spontaneous unknown) (unknown) (no (unknown) (unknown) 08:57 (units (unkno wn) date) unknown) (unknown) (no (unknown) (unknown) 07/01/22 (units (unkno wn) date) Ultrasound #1 40w unknown) 6d (unknown) (no (unknown) (unknown) 07/07/22 19:40 (units (unknown) date) unknown) (unknown) (no (unknown) (unknown) 27 yo @ (units (u nknown) date) [id number], being unknown) admitted for IOL for postdates. (unknown) (no (unknown) (unknown) [id number] (units (unkno wn) date) unknown) (unknown) (no (unknown) (unknown) :57 (units (unkno wn) date) unknown) (unknown) (no (unknown) (unknown) Abnormal Pap (units (u nknown) date) smear of cervix unknown) (-2013) (unknown) (no (unknown) (unknown) Age/Sex: 27 / F (units (unknown) date) unknown) (unknown) (no (unknown) (unknown) Allergies (units (unkn own) date) unknown) (unknown) (no (unknown) (unknown) Allergy/AdvReac (units (unknown) date) Type Severity unknown) Reaction Status Date / Time (unknown) (no (unknown) (unknown) Anesthesia (units (unk nown) date) unknown) (unknown) (no (unknown) (unknown) Antibody Screen (units (unknown) date) Negative 07/05/22 unknown) 09:45 (unknown) (no (unknown) (unknown) Assessment and (units (unknown) date) Plan narrative: unknown) (unknown) (no (unknown) (unknown) Assessment and (units (unknown) date) Plan unknown) (unknown) (no (unknown) (unknown) Baseline (units (unknown) date) heart rate: 145 unknown) (unknown) (no (unknown) (unknown) Burger score: 2 (units (unknown) date) unknown) (unknown) (no (unknown) (unknown) Blood Type O (units (u nknown) date) Positive 07/05/22 unknown) 09:45 (unknown) (no (unknown) (unknown) Breastfeed Preg (units (unknown) date) Comp Name unknown) (unknown) (no (unknown) (unknown) Category of (units (un known) date) Tracing: Reactive unknown) (unknown) (no (unknown) (unknown) Chief complaint: (units (unknown) date) Labor unknown) (unknown) (no (unknown) (unknown) Consistency: (units (u nknown) date) medium unknown) (unknown) (no (unknown) (unknown) Contraction (units (un known) date) Frequency unknown) (minutes): 9 (unknown) (no (unknown) (unknown) Current Estimate (units (unknown) date) 06/30/22 Manual unknown) 41w 0d IVF pregnan (unknown) (no (unknown) (unknown) : 1995 (units (unknown) date) Acct:[id number] unknown) (unknown) (no (unknown) (unknown) Date Patient (units (u nknown) date) Seen: 07/07/22 unknown) (unknown) (no (unknown) (unknown) Date of Service: (units (unknown) date) 07/07/22 unknown) (unknown) (no (unknown) (unknown) Date of (units (unkno wn) date) admission: unknown) 07/07/22 (unknown) (no (unknown) (unknown) Date/Time (units (unkn own) date) unknown) (unknown) (no (unknown) (unknown) Dating criteria (units (unknown) date) OB: other (IVF, unknown) (+c/w first trimester US)) (unknown) (no (unknown) (unknown) Del. Date (units (unkn own) date) GA/Weeks Labor unknown) Lgth Wt Sex Route Outcome Anesthesia Place (unknown) (no (unknown) (unknown) Delivery Date: (units (unknown) date) 02/17/19 Last unknown) Updated by: Juhi Hayes R.N. (unknown) (no (unknown) (unknown) Delv (units (unkno wn) date) unknown) (unknown) (no (unknown) (unknown) Dilation (cm): 0 (units (unknown) date) unknown) (unknown) (no (unknown) (unknown) Dilation: Closed (units (unknown) date) unknown) (unknown) (no (unknown) (unknown) LORY Calculator (units (unknown) date) unknown) (unknown) (no (unknown) (unknown) Effacement (%): (units (unknown) date) 20 unknown) (unknown) (no (unknown) (unknown) Effacement: 0-30% (units (unknown) date) unknown) (unknown) (no (unknown) (unknown) Encounter for in (units (unknown) date) vitro unknown) fertilization () (unknown) (no (unknown) (unknown) Estimated (units (unkn own) date) Delivery Date unknown) Method Current (unknown) (no (unknown) (unknown) Estimated (units (unkn own) date) Gestational Age unknown) (weeks): 41 (unknown) (no (unknown) (unknown) Evaluation (units (unk nown) date) unknown) (unknown) (no (unknown) (unknown) Family History (units (unknown) date) (Updated 01/04/22 unknown) @ 23:06 by Paris Davalos) (unknown) (no (unknown) (unknown) Monitor (units ( unknown) date) Decelerations: unknown) Absent (unknown) (no (unknown) (unknown) Status: (units ( unknown) date) Category l unknown) (unknown) (no (unknown) (unknown) monitor (units ( unknown) date) accelerations: unknown) Present (unknown) (no (unknown) (unknown) station: -2 (units (unknown) date) unknown) (unknown) (no (unknown) (unknown) Glucose 1 Hour (units (unknown) date) 133 mg/dL (76-139) unknown) 03/28/22 09:33 (unknown) (no (unknown) (unknown) Grandfather (units (un known) date) Diabetes mellitus unknown) (unknown) (no (unknown) (unknown) Grandmother (units (un known) date) Breast cancer unknown) (unknown) (no (unknown) (unknown) Grandmother (units (un known) date) Hypertension unknown) (unknown) (no (unknown) (unknown) : 2 (units (unk nown) date) unknown) (unknown) (no (unknown) (unknown) Group B (units (unkno wn) date) Streptococcus unknown) (PCR) Neg for grp b strep 06/07/22 13:51 (unknown) (no (unknown) (unknown) Hematocrit 30.7 % (units (unknown) date) (36-46) L 07/07/22 unknown) 19:40 (unknown) (no (unknown) (unknown) Hemoglobin 10.0 (units (unknown) date) g/dL (12.0-16.0) L unknown) 07/07/22 19:40 (unknown) (no (unknown) (unknown) Hepatitis B (units (un known) date) Surface Antigen unknown) Negative s/c (NEGATIVE) 12/08/21 08 (unknown) (no (unknown) (unknown) Hepatitis C (units (un known) date) Antibody Negative unknown) s/c (NEGATIVE) 12/08/21 08:57 (unknown) (no (unknown) (unknown) History of (units (unk nown) date) Present Condition unknown) (unknown) (no (unknown) (unknown) Home Medications (units (unknown) date) and Allergies unknown) (unknown) (no (unknown) (unknown) Home Medications (units (unknown) date) unknown) (unknown) (no (unknown) (unknown) 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) unknown) (unknown) (no (unknown) (unknown) Hx of (units (unkno wn) date) tonsillectomy unknown) (-2009) (unknown) (no (unknown) (unknown) 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) unknown) (unknown) (no (unknown) (unknown) [facility] (units (unknown) date) [address] unknown) [place] [address] (unknown) (no (unknown) (unknown) Labs (units (unkno wn) date) unknown) (unknown) (no (unknown) (unknown) Last OB Lab (units (un known) date) Results: unknown) (unknown) (no (unknown) (unknown) 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) () (unknown) (no (unknown) (unknown) Medical History (units (unknown) date) (Reviewed 07/05/22 unknown) @ 17:54 by Lynne Campuzano MD) (unknown) (no (unknown) (unknown) Medical (units (unkno wn) date) complications OB: unknown) none (unknown) (no (unknown) (unknown) Medication (units (unk nown) date) Instructions unknown) Recorded Confirmed Type (unknown) (no (unknown) (unknown) Meds (units (unkno wn) date) unknown) (unknown) (no (unknown) (unknown) Mother (units (unkno wn) date) Hypertension unknown) (unknown) (no (unknown) (unknown) No Known Drug (units ( unknown) date) Allergies Allergy unknown) Verified 07/05/22 10:18 (unknown) (no (unknown) (unknown) Non-invasive (units (u nknown) date) Membranes unknown) Rupture Test: negative (unknown) (no (unknown) (unknown) OB HPI (units (unkno wn) date) unknown) (unknown) (no (unknown) (unknown) VEGETABLE GRADER History + (units (unknown) date) Physical unknown) (unknown) (no (unknown) (unknown) Objective (units (unkn own) date) unknown) (unknown) (no (unknown) (unknown) Obstetrical (units (un known) date) complications: unknown) none (unknown) (no (unknown) (unknown) Other Estimates (units (unknown) date) 06/26/22 LMP unknown) (Certain) 41w 4d (unknown) (no (unknown) (unknown) PFSH (units (unkno wn) date) unknown) (unknown) (no (unknown) (unknown) Para: 0 (units (unkno wn) date) unknown) (unknown) (no (unknown) (unknown) Past Pregnancies (units (unknown) date) unknown) (unknown) (no (unknown) (unknown) Patient: (units (unkno wn) date) Trini Lorenz unknown) MR#: [id number] (unknown) (no (unknown) (unknown) Position of (units (un known) date) cervix: posterior unknown) (unknown) (no (unknown) (unknown) Preadmission Labs (units (unknown) date) unknown) (unknown) (no (unknown) (unknown) Prior (units (unkno wn) date) (ies) unknown) (unknown) (no (unknown) (unknown) Provider: (units (unkn own) date) Lynne Campuzano unknown) (unknown) (no (unknown) (unknown) Result Diagrams: (units (unknown) date) unknown) (unknown) (no (unknown) (unknown) Rubella Antibody (units (unknown) date) 10.5 IU/mL (>15) L unknown) 12/08/21 08:57 (unknown) (no (unknown) (unknown) S/P LEEP (loop (units (unknown) date) electrosurgical unknown) excision procedure) (-08/2014) (unknown) (no (unknown) (unknown) Signed By: (units (unk nown) date) unknown) (unknown) (no (unknown) (unknown) Smoking Status: (units (unknown) date) Never smoker unknown) (unknown) (no (unknown) (unknown) Social History (units (unknown) date) unknown) (unknown) (no (unknown) (unknown) Surgical History (units (unknown) date) (Reviewed 07/07/22 unknown) @ 20:15 by Lynne Campuzano MD) (unknown) (no (unknown) (unknown) Time Patient (units (u nknown) date) Seen: 19:53 unknown) (unknown) (no (unknown) (unknown) Type(s) of (units (unk nown) date) exercise: none unknown) (unknown) (no (unknown) (unknown) Ultrasounds: (units (u nknown) date) normal 1st unknown) trimester US and normal mid trimester US (unknown) (no (unknown) (unknown) Uterine (units (unkno wn) date) Contraction unknown) Intensity: Mild (unknown) (no (unknown) (unknown) Variability: (units (u nknown) date) Moderate (11-25) unknown) (unknown) (no (unknown) (unknown) Varicella-Zoster (units (unknown) date) IgG Antibody 509 unknown) index (Immune >165) 12/08/21 (unknown) (no (unknown) (unknown) WG (units (unkno wn) date) unknown) (unknown) (no (unknown) (unknown) Millis teeth (units (u nknown) date) extracted () unknown) (unknown) (no (unknown) (unknown) [Embedded Image (units (unknown) date) Not Available] unknown) (unknown) (no (unknown) (unknown) alcohol intake: (units (unknown) date) former unknown) (unknown) (no (unknown) (unknown) caffeine: Yes (units ( unknown) date) (aware of 200mg unknown) daily limit) (unknown) (no (unknown) (unknown) carbon monox (units (u nknown) date) detector in home: unknown) Yes (unknown) (no (unknown) (unknown) current (units (unkno wn) date) occupational unknown) exposures/hazards: No (unknown) (no (unknown) (unknown) cy (units (unkno wn) date) unknown) (unknown) (no (unknown) (unknown) cytotec (units (unkno wn) date) unknown) (unknown) (no (unknown) (unknown) daily servings (units (unknown) date) fruits/ve-4 unknown) (unknown) (no (unknown) (unknown) do you feel safe (units (unknown) date) at home: Yes unknown) (unknown) (no (unknown) (unknown) during the past (units (unknown) date) year weight has: unknown) decreased > 10 lbs (lost 30 lbs) (unknown) (no (unknown) (unknown) eating out: (units (un known) date) rarely or never unknown) (unknown) (no (unknown) (unknown) education level: (units (unknown) date) college unknown) (unknown) (no (unknown) (unknown) fire extinguisher (units (unknown) date) in home: No unknown) (unknown) (no (unknown) (unknown) firearms in home: (units (unknown) date) No unknown) (unknown) (no (unknown) (unknown) frequency: does (units (unknown) date) not exercise unknown) (unknown) (no (unknown) (unknown) household (units (unkn own) date) members: spouse unknown) (unknown) (no (unknown) (unknown) housing: house (units (unknown) date) unknown) (unknown) (no (unknown) (unknown) marital status: (units (unknown) date) unknown) (unknown) (no (unknown) (unknown) number of (units (unkn own) date) children: 0 unknown) (unknown) (no (unknown) (unknown) occupational (units (u nknown) date) status: unemployed unknown) (unknown) (no (unknown) (unknown) pets and animals: (units (unknown) date) Yes (2 dogs) unknown) (unknown) (no (unknown) (unknown) prenat.vits,emilia,m (units (unknown) date) [id number] 1 unknown) tab PO DAILY 11/27/21 07/07/22 History (unknown) (no (unknown) (unknown) seatbelt use: (units ( unknown) date) always unknown) (unknown) (no (unknown) (unknown) second hand (units (un known) date) exposure: No unknown) (unknown) (no (unknown) (unknown) special donna (units ( unknown) date) needs: No unknown) (unknown) (no (unknown) (unknown) substance use (units ( unknown) date) type: does not use unknown) (unknown) (no (unknown) (unknown) travel history: (units (unknown) date) recent ([place] unknown) 12/2020) (unknown) (no (unknown) (unknown) water heater temp (units (unknown) date) set < 120 deg: No unknown) (unsure) (unknown) (no (unknown) (unknown) well-balanced (units ( unknown) date) diet: about half unknown) the time (unknown) (no (unknown) (unknown) working smoke (units ( unknown) date) detector in home: unknown) Yes Result panel 355 (unknown) (no (unknown) (unknown) (no value) (units (unk nown) date) unknown) (unknown) (no (unknown) (unknown) -: Chlamydia (units (u nknown) date) screen: negative unknown) and Gonorrhea screen: negative (unknown) (no (unknown) (unknown) -: PAP smear: (units ( unknown) date) Normal (11/2021) unknown) (unknown) (no (unknown) (unknown) 02/17/19 8 (units (unk nown) date) spontaneous unknown) (unknown) (no (unknown) (unknown) 08:57 (units (unkno wn) date) unknown) (unknown) (no (unknown) (unknown) 07/01/22 (units (unkno wn) date) Ultrasound #1 40w unknown) 6d (unknown) (no (unknown) (unknown) 07/07/22 19:40 (units (unknown) date) unknown) (unknown) (no (unknown) (unknown) 27 yo @ (units (u nknown) date) [id number], being unknown) admitted for IOL for postdates. GBS negative. (unknown) (no (unknown) (unknown) 3357 grams. (units (un known) date) unknown) (unknown) (no (unknown) (unknown) 37 week growth (units (unknown) date) ultrasound (done unknown) for IVF ) showed EFW 56 percentile, (unknown) (no (unknown) (unknown) [id number] (units (unkno wn) date) unknown) (unknown) (no (unknown) (unknown) :57 (units (unkno wn) date) unknown) (unknown) (no (unknown) (unknown) Abnormal Pap (units (u nknown) date) smear of cervix unknown) (-2013) (unknown) (no (unknown) (unknown) Age/Sex: 27 / F (units (unknown) date) unknown) (unknown) (no (unknown) (unknown) Allergies (units (unkn own) date) unknown) (unknown) (no (unknown) (unknown) Allergy/AdvReac (units (unknown) date) Type Severity unknown) Reaction Status Date / Time (unknown) (no (unknown) (unknown) Anesthesia (units (unk nown) date) unknown) (unknown) (no (unknown) (unknown) Antibody Screen (units (unknown) date) Negative 07/05/22 unknown) 09:45 (unknown) (no (unknown) (unknown) Assessment and (units (unknown) date) Plan narrative: unknown) (unknown) (no (unknown) (unknown) Assessment and (units (unknown) date) Plan unknown) (unknown) (no (unknown) (unknown) Baseline (units (unknown) date) heart rate: 145 unknown) (unknown) (no (unknown) (unknown) Burger score: 2 (units (unknown) date) unknown) (unknown) (no (unknown) (unknown) Blood Type O (units (u nknown) date) Positive 07/05/22 unknown) 09:45 (unknown) (no (unknown) (unknown) Breastfeed Preg (units (unknown) date) Comp Name unknown) (unknown) (no (unknown) (unknown) Cardio (units (unkno wn) date) unknown) (unknown) (no (unknown) (unknown) Category of (units (un known) date) Tracing: Reactive unknown) (unknown) (no (unknown) (unknown) Cervidil placed (units (unknown) date) for cervical unknown) ripening due to unfavorable cervix. (unknown) (no (unknown) (unknown) Chief complaint: (units (unknown) date) Labor unknown) (unknown) (no (unknown) (unknown) Consistency: (units (u nknown) date) medium unknown) (unknown) (no (unknown) (unknown) Contraction (units (un known) date) Frequency unknown) (minutes): 9 (unknown) (no (unknown) (unknown) Current Estimate (units (unknown) date) 06/30/22 Manual unknown) 41w 0d IVF pregnan (unknown) (no (unknown) (unknown) : 1995 (units (unknown) date) Acct:[id number] unknown) (unknown) (no (unknown) (unknown) Date Patient (units (u nknown) date) Seen: 07/07/22 unknown) (unknown) (no (unknown) (unknown) Date of Service: (units (unknown) date) 07/07/22 unknown) (unknown) (no (unknown) (unknown) Date of (units (unkno wn) date) admission: unknown) 07/07/22 (unknown) (no (unknown) (unknown) Date/Time (units (unkn own) date) unknown) (unknown) (no (unknown) (unknown) Dating criteria (units (unknown) date) OB: other (IVF, unknown) (+c/w first trimester US)) (unknown) (no (unknown) (unknown) Del. Date (units (unkn own) date) GA/Weeks Labor unknown) Lgth Wt Sex Route Outcome Anesthesia Place (unknown) (no (unknown) (unknown) Delivery Date: (units (unknown) date) 02/17/19 Last unknown) Updated by: Juhi Hayes R.N. (unknown) (no (unknown) (unknown) Delv (units (unkno wn) date) unknown) (unknown) (no (unknown) (unknown) Denies leakage of (units (unknown) date) fluid, vaginal unknown) bleeding, or frequent contractions.. (unknown) (no (unknown) (unknown) Dilation (cm): 0 (units (unknown) date) unknown) (unknown) (no (unknown) (unknown) Dilation: Closed (units (unknown) date) unknown) (unknown) (no (unknown) (unknown) LORY Calculator (units (unknown) date) unknown) (unknown) (no (unknown) (unknown) EFW 56% by 37 (units ( unknown) date) week US. unknown) (unknown) (no (unknown) (unknown) Effacement (%): (units (unknown) date) 20 unknown) (unknown) (no (unknown) (unknown) Effacement: 0-30% (units (unknown) date) unknown) (unknown) (no (unknown) (unknown) Effort + (units (unkno wn) date) Inspection: normal unknown) respiratory effort and able to speak in complete (unknown) (no (unknown) (unknown) Encounter for in (units (unknown) date) vitro unknown) fertilization () (unknown) (no (unknown) (unknown) Estimated (units (unkn own) date) Delivery Date unknown) Method Current (unknown) (no (unknown) (unknown) Estimated (units (unkn own) date) Gestational Age unknown) (weeks): 41 (unknown) (no (unknown) (unknown) Evaluation (units (unk nown) date) unknown) (unknown) (no (unknown) (unknown) Extremities (units (un known) date) unknown) (unknown) (no (unknown) (unknown) Family History (units (unknown) date) (Updated 01/04/22 unknown) @ 23:06 by Paris Davalos) (unknown) (no (unknown) (unknown) Feeling good (units (u nknown) date) movement. unknown) (unknown) (no (unknown) (unknown) Monitor (units ( unknown) date) Decelerations: unknown) Absent (unknown) (no (unknown) (unknown) Status: (units ( unknown) date) Category l unknown) (unknown) (no (unknown) (unknown) monitor (units ( unknown) date) accelerations: unknown) Present (unknown) (no (unknown) (unknown) station: -2 (units (unknown) date) unknown) (unknown) (no (unknown) (unknown) Genetic Screens: (units (unknown) date) Quad screen: unknown) Normal (unknown) (no (unknown) (unknown) Glucose 1 Hour (units (unknown) date) 133 mg/dL (76-139) unknown) 03/28/22 09:33 (unknown) (no (unknown) (unknown) Grandfather (units (un known) date) Diabetes mellitus unknown) (unknown) (no (unknown) (unknown) Grandmother (units (un known) date) Breast cancer unknown) (unknown) (no (unknown) (unknown) Grandmother (units (un known) date) Hypertension unknown) (unknown) (no (unknown) (unknown) : 2 (units (unk nown) date) unknown) (unknown) (no (unknown) (unknown) Group B (units (unkno wn) date) Streptococcus unknown) (PCR) Neg for grp b strep 06/07/22 13:51 (unknown) (no (unknown) (unknown) HENMT (units (unkno wn) date) unknown) (unknown) (no (unknown) (unknown) Head: normal to (units (unknown) date) inspection and unknown) normocephalic (unknown) (no (unknown) (unknown) Hematocrit 30.7 % (units (unknown) date) (36-46) L 07/07/22 unknown) 19:40 (unknown) (no (unknown) (unknown) Hemoglobin 10.0 (units (unknown) date) g/dL (12.0-16.0) L unknown) 07/07/22 19:40 (unknown) (no (unknown) (unknown) Hepatitis B (units (un known) date) Surface Antigen unknown) Negative s/c (NEGATIVE) 12/08/21 08 (unknown) (no (unknown) (unknown) Hepatitis C (units (un known) date) Antibody Negative unknown) s/c (NEGATIVE) 12/08/21 08:57 (unknown) (no (unknown) (unknown) History of (units (unk nown) date) Present Condition unknown) (unknown) (no (unknown) (unknown) Home Medications (units (unknown) date) and Allergies unknown) (unknown) (no (unknown) (unknown) Home Medications (units (unknown) date) unknown) (unknown) (no (unknown) (unknown) 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 has been (unknown) (no (unknown) (unknown) Labs (units (unkno wn) date) unknown) (unknown) (no (unknown) (unknown) Last OB Lab (units (un known) date) Results: unknown) (unknown) (no (unknown) (unknown) Lower extremity: (units (unknown) date) Yes normal to unknown) inspection (unknown) (no (unknown) (unknown) 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) () (unknown) (no (unknown) (unknown) Medical History (units (unknown) date) (Reviewed 07/05/22 unknown) @ 17:54 by Lynne Campuzano MD) (unknown) (no (unknown) (unknown) Medical (units (unkno wn) date) complications OB: unknown) none (unknown) (no (unknown) (unknown) Medication (units (unk nown) date) Instructions unknown) Recorded Confirmed Type (unknown) (no (unknown) (unknown) Meds (units (unkno wn) date) unknown) (unknown) (no (unknown) (unknown) Mother (units (unkno wn) date) Hypertension unknown) (unknown) (no (unknown) (unknown) Narrative: (units (unk nown) date) unknown) (unknown) (no (unknown) (unknown) No Known Drug (units ( unknown) date) Allergies Allergy unknown) Verified 07/05/22 10:18 (unknown) (no (unknown) (unknown) Non-invasive (units (u nknown) date) Membranes unknown) Rupture Test: negative (unknown) (no (unknown) (unknown) OB Exam (units (unkno wn) date) unknown) (unknown) (no (unknown) (unknown) OB HPI (units (unkno wn) date) unknown) (unknown) (no (unknown) (unknown) VEGETABLE GRADER History + (units (unknown) date) Physical unknown) (unknown) (no (unknown) (unknown) Objective (units (unkn own) date) unknown) (unknown) (no (unknown) (unknown) Obstetrical (units (un known) date) complications: unknown) none (unknown) (no (unknown) (unknown) Other Estimates (units (unknown) date) 06/26/22 LMP unknown) (Certain) 41w 4d (unknown) (no (unknown) (unknown) PFSH (units (unkno wn) date) unknown) (unknown) (no (unknown) (unknown) Para: 0 (units (unkno wn) date) unknown) (unknown) (no (unknown) (unknown) Past Pregnancies (units (unknown) date) unknown) (unknown) (no (unknown) (unknown) Patient: (units (unkno wn) date) Trini Lorenz unknown) MR#: [id number] (unknown) (no (unknown) (unknown) Position of (units (un known) date) cervix: posterior unknown) (unknown) (no (unknown) (unknown) Preadmission Labs (units (unknown) date) unknown) (unknown) (no (unknown) (unknown) care: (units (unknown) date) good care unknown) (unknown) (no (unknown) (unknown) Prior (units (unkno wn) date) (ies) unknown) (unknown) (no (unknown) (unknown) Provider: (units (unkn own) date) Lynne Campuzano unknown) (unknown) (no (unknown) (unknown) Rate: tachycardic (units (unknown) date) (mildly unknown) tachycardic, anxious) (unknown) (no (unknown) (unknown) Resp (units (unkno wn) date) unknown) (unknown) (no (unknown) (unknown) Result Diagrams: (units (unknown) date) unknown) (unknown) (no (unknown) (unknown) Review of Systems (units (unknown) date) unknown) (unknown) (no (unknown) (unknown) Rubella Antibody (units (unknown) date) 10.5 IU/mL (>15) L unknown) 12/08/21 08:57 (unknown) (no (unknown) (unknown) S/P LEEP (loop (units (unknown) date) electrosurgical unknown) excision procedure) () (unknown) (no (unknown) (unknown) Signed By: (units (unk nown) date) unknown) (unknown) (no (unknown) (unknown) Smoking Status: (units (unknown) date) Never smoker unknown) (unknown) (no (unknown) (unknown) Social History (units (unknown) date) unknown) (unknown) (no (unknown) (unknown) Surgical History (units (unknown) date) (Reviewed 07/07/22 unknown) @ 20:15 by Lynne Campuzano MD) (unknown) (no (unknown) (unknown) Time Patient (units (u nknown) date) Seen: 19:53 unknown) (unknown) (no (unknown) (unknown) Time Spent with (units (unknown) date) Patient unknown) (unknown) (no (unknown) (unknown) Total time spent (units (unknown) date) with greater than unknown) 50% in coordination of care (as documented) (unknown) (no (unknown) (unknown) Type(s) of (units (unk nown) date) exercise: none unknown) (unknown) (no (unknown) (unknown) Ultrasounds: (units (u nknown) date) normal 1st unknown) trimester US and normal mid trimester US (unknown) (no (unknown) (unknown) Uterine (units (unkno wn) date) Contraction unknown) Intensity: Mild (unknown) (no (unknown) (unknown) Variability: (units (u nknown) date) Moderate (11-25) unknown) (unknown) (no (unknown) (unknown) Varicella-Zoster (units (unknown) date) IgG Antibody 509 unknown) index (Immune >165) 12/08/21 (unknown) (no (unknown) (unknown) WG (units (unkno wn) date) unknown) (unknown) (no (unknown) (unknown) Millis teeth (units (u nknown) date) extracted (-2012) unknown) (unknown) (no (unknown) (unknown) [Embedded Image (units (unknown) date) Not Available] unknown) (unknown) (no (unknown) (unknown) alcohol intake: (units (unknown) date) former unknown) (unknown) (no (unknown) (unknown) at patient's (units (u nknown) date) floor/unit and/or unknown) counseling patient:: less than 15 minutes (unknown) (no (unknown) (unknown) caffeine: Yes (units ( unknown) date) (aware of 200mg unknown) daily limit) (unknown) (no (unknown) (unknown) carbon monox (units (u nknown) date) detector in home: unknown) Yes (unknown) (no (unknown) (unknown) current (units (unkno wn) date) occupational unknown) exposures/hazards: No (unknown) (no (unknown) (unknown) cy (units (unkno wn) date) unknown) (unknown) (no (unknown) (unknown) cytotec (units (unkno wn) date) unknown) (unknown) (no (unknown) (unknown) daily servings (units (unknown) date) fruits/ve-4 unknown) (unknown) (no (unknown) (unknown) do you feel safe (units (unknown) date) at home: Yes unknown) (unknown) (no (unknown) (unknown) during the past (units (unknown) date) year weight has: unknown) decreased > 10 lbs (lost 30 lbs) (unknown) (no (unknown) (unknown) eating out: (units (un known) date) rarely or never unknown) (unknown) (no (unknown) (unknown) education level: (units (unknown) date) college unknown) (unknown) (no (unknown) (unknown) fire extinguisher (units (unknown) date) in home: No unknown) (unknown) (no (unknown) (unknown) firearms in home: (units (unknown) date) No unknown) (unknown) (no (unknown) (unknown) frequency: does (units (unknown) date) not exercise unknown) (unknown) (no (unknown) (unknown) household (units (unkn own) date) members: spouse unknown) (unknown) (no (unknown) (unknown) housing: house (units (unknown) date) unknown) (unknown) (no (unknown) (unknown) marital status: (units (unknown) date) unknown) (unknown) (no (unknown) (unknown) number of (units (unkn own) date) children: 0 unknown) (unknown) (no (unknown) (unknown) occupational (units (u nknown) date) status: unemployed unknown) (unknown) (no (unknown) (unknown) pets and animals: (units (unknown) date) Yes (2 dogs) unknown) (unknown) (no (unknown) (unknown) prenat.vits,emilia,m (units (unknown) date) [id number] 1 unknown) tab PO DAILY 11/27/21 07/07/22 History (unknown) (no (unknown) (unknown) seatbelt use: (units ( unknown) date) always unknown) (unknown) (no (unknown) (unknown) second hand (units (un known) date) exposure: No unknown) (unknown) (no (unknown) (unknown) sentences (units (unkn own) date) unknown) (unknown) (no (unknown) (unknown) special donna (units ( unknown) date) needs: No unknown) (unknown) (no (unknown) (unknown) substance use (units ( unknown) date) type: does not use unknown) (unknown) (no (unknown) (unknown) travel history: (units (unknown) date) recent ([place] unknown) 12/2020) (unknown) (no (unknown) (unknown) uncomplicated. (units (unknown) date) She is feeling unknown) well, denies any problems. (unknown) (no (unknown) (unknown) water heater temp (units (unknown) date) set < 120 deg: No unknown) (unsure) (unknown) (no (unknown) (unknown) well-balanced (units ( unknown) date) diet: about half unknown) the time (unknown) (no (unknown) (unknown) working smoke (units ( unknown) date) detector in home: unknown) Yes Result panel 356 (unknown) (no (unknown) (unknown) (no value) (units (unk nown) date) unknown) (unknown) (no (unknown) (unknown) -: Chlamydia (units (u nknown) date) screen: negative unknown) and Gonorrhea screen: negative (unknown) (no (unknown) (unknown) -: PAP smear: (units ( unknown) date) Normal (11/2021) unknown) (unknown) (no (unknown) (unknown) 02/17/19 8 (units (unk nown) date) spontaneous unknown) (unknown) (no (unknown) (unknown) 08:57 (units (unkno wn) date) unknown) (unknown) (no (unknown) (unknown) 07/01/22 (units (unkno wn) date) Ultrasound #1 40w unknown) 6d (unknown) (no (unknown) (unknown) 07/07/22 19:40 (units (unknown) date) unknown) (unknown) (no (unknown) (unknown) 07/07/220 (units ( unknown) date) unknown) (unknown) (no (unknown) (unknown) 27 yo @ (units (u nknown) date) [id number], being unknown) admitted for IOL for postdates. GBS negative. EFW (unknown) (no (unknown) (unknown) 3357 grams. (units (un known) date) unknown) (unknown) (no (unknown) (unknown) 37 week growth (units (unknown) date) ultrasound (done unknown) for IVF ) showed EFW 56 percentile, (unknown) (no (unknown) (unknown) [id number] (units (unkno wn) date) unknown) (unknown) (no (unknown) (unknown) 56% by 37 week (units (unknown) date) US. unknown) (unknown) (no (unknown) (unknown) :57 (units (unkno wn) date) unknown) (unknown) (no (unknown) (unknown) Abnormal Pap (units (u nknown) date) smear of cervix unknown) () (unknown) (no (unknown) (unknown) Age/Sex: 27 / F (units (unknown) date) unknown) (unknown) (no (unknown) (unknown) Allergies (units (unkn own) date) unknown) (unknown) (no (unknown) (unknown) Allergy/AdvReac (units (unknown) date) Type Severity unknown) Reaction Status Date / Time (unknown) (no (unknown) (unknown) Anesthesia (units (unk nown) date) unknown) (unknown) (no (unknown) (unknown) Antibody Screen (units (unknown) date) Negative 07/05/22 unknown) 09:45 (unknown) (no (unknown) (unknown) Assessment and (units (unknown) date) Plan narrative: unknown) (unknown) (no (unknown) (unknown) Assessment and (units (unknown) date) Plan unknown) (unknown) (no (unknown) (unknown) Baseline (units (unknown) date) heart rate: 145 unknown) (unknown) (no (unknown) (unknown) Burger score: 2 (units (unknown) date) unknown) (unknown) (no (unknown) (unknown) Blood Type O (units (u nknown) date) Positive 07/05/22 unknown) 09:45 (unknown) (no (unknown) (unknown) Breastfeed Preg (units (unknown) date) Comp Name unknown) (unknown) (no (unknown) (unknown) Cardio (units (unkno wn) date) unknown) (unknown) (no (unknown) (unknown) Category of (units (un known) date) Tracing: Reactive unknown) (unknown) (no (unknown) (unknown) Cervidil placed @ (units (unknown) date) 845 pm for unknown) cervical ripening due to unfavorable cervix. (unknown) (no (unknown) (unknown) Chief complaint: (units (unknown) date) Labor unknown) (unknown) (no (unknown) (unknown) Consistency: (units (u nknown) date) medium unknown) (unknown) (no (unknown) (unknown) Contraction (units (un known) date) Frequency unknown) (minutes): 9 (unknown) (no (unknown) (unknown) Current Estimate (units (unknown) date) 06/30/22 Manual unknown) 41w 0d IVF pregnan (unknown) (no (unknown) (unknown) : 1995 (units (unknown) date) Acct:[id number] unknown) (unknown) (no (unknown) (unknown) Date Patient (units (u nknown) date) Seen: 07/07/22 unknown) (unknown) (no (unknown) (unknown) Date of Service: (units (unknown) date) 07/07/22 unknown) (unknown) (no (unknown) (unknown) Date of (units (unkno wn) date) admission: unknown) 07/07/22 (unknown) (no (unknown) (unknown) Date/Time (units (unkn own) date) unknown) (unknown) (no (unknown) (unknown) Dating criteria (units (unknown) date) OB: other (IVF, unknown) (+c/w first trimester US)) (unknown) (no (unknown) (unknown) Del. Date (units (unkn own) date) GA/Weeks Labor unknown) Lgth Wt Sex Route Outcome Anesthesia Place (unknown) (no (unknown) (unknown) Delivery Date: (units (unknown) date) 02/17/19 Last unknown) Updated by: Juhi Hayes R.N. (unknown) (no (unknown) (unknown) Delv (units (unkno wn) date) unknown) (unknown) (no (unknown) (unknown) Denies leakage of (units (unknown) date) fluid, vaginal unknown) bleeding, or frequent contractions.. (unknown) (no (unknown) (unknown) Dilation (cm): 0 (units (unknown) date) unknown) (unknown) (no (unknown) (unknown) Dilation: Closed (units (unknown) date) unknown) (unknown) (no (unknown) (unknown) LORY Calculator (units (unknown) date) unknown) (unknown) (no (unknown) (unknown) Effacement (%): (units (unknown) date) 20 unknown) (unknown) (no (unknown) (unknown) Effacement: 0-30% (units (unknown) date) unknown) (unknown) (no (unknown) (unknown) Effort + (units (unkno wn) date) Inspection: normal unknown) respiratory effort and able to speak in complete (unknown) (no (unknown) (unknown) Encounter for in (units (unknown) date) vitro unknown) fertilization () (unknown) (no (unknown) (unknown) Estimated (units (unkn own) date) Delivery Date unknown) Method Current (unknown) (no (unknown) (unknown) Estimated (units (unkn own) date) Gestational Age unknown) (weeks): 41 (unknown) (no (unknown) (unknown) Evaluation (units (unk nown) date) unknown) (unknown) (no (unknown) (unknown) Extremities (units (un known) date) unknown) (unknown) (no (unknown) (unknown) Family History (units (unknown) date) (Updated 01/04/22 unknown) @ 23:06 by Paris Davalos) (unknown) (no (unknown) (unknown) Feeling good (units (u nknown) date) movement. unknown) (unknown) (no (unknown) (unknown) Monitor (units ( unknown) date) Decelerations: unknown) Absent (unknown) (no (unknown) (unknown) Status: (units ( unknown) date) Category l unknown) (unknown) (no (unknown) (unknown) monitor (units ( unknown) date) accelerations: unknown) Present (unknown) (no (unknown) (unknown) station: -2 (units (unknown) date) unknown) (unknown) (no (unknown) (unknown) Genetic Screens: (units (unknown) date) Quad screen: unknown) Normal (unknown) (no (unknown) (unknown) Glucose 1 Hour (units (unknown) date) 133 mg/dL (76-139) unknown) 03/28/22 09:33 (unknown) (no (unknown) (unknown) Grandfather (units (un known) date) Diabetes mellitus unknown) (unknown) (no (unknown) (unknown) Grandmother (units (un known) date) Breast cancer unknown) (unknown) (no (unknown) (unknown) Grandmother (units (un known) date) Hypertension unknown) (unknown) (no (unknown) (unknown) : 2 (units (unk nown) date) unknown) (unknown) (no (unknown) (unknown) Group B (units (unkno wn) date) Streptococcus unknown) (PCR) Neg for grp b strep 06/07/22 13:51 (unknown) (no (unknown) (unknown) HENMT (units (unkno wn) date) unknown) (unknown) (no (unknown) (unknown) Head: normal to (units (unknown) date) inspection and unknown) normocephalic (unknown) (no (unknown) (unknown) Hematocrit 30.7 % (units (unknown) date) (36-46) L 07/07/22 unknown) 19:40 (unknown) (no (unknown) (unknown) Hemoglobin 10.0 (units (unknown) date) g/dL (12.0-16.0) L unknown) 07/07/22 19:40 (unknown) (no (unknown) (unknown) Hepatitis B (units (un known) date) Surface Antigen unknown) Negative s/c (NEGATIVE) 12/08/21 08 (unknown) (no (unknown) (unknown) Hepatitis C (units (un known) date) Antibody Negative unknown) s/c (NEGATIVE) 12/08/21 08:57 (unknown) (no (unknown) (unknown) History of (units (unk nown) date) Present Condition unknown) (unknown) (no (unknown) (unknown) Home Medications (units (unknown) date) and Allergies unknown) (unknown) (no (unknown) (unknown) Home Medications (units (unknown) date) unknown) (unknown) (no (unknown) (unknown) 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 has been (unknown) (no (unknown) (unknown) Labs (units (unkno wn) date) unknown) (unknown) (no (unknown) (unknown) Last OB Lab (units (un known) date) Results: unknown) (unknown) (no (unknown) (unknown) Lower extremity: (units (unknown) date) Yes normal to unknown) inspection (unknown) (no (unknown) (unknown) 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) () (unknown) (no (unknown) (unknown) Medical History (units (unknown) date) (Reviewed 07/05/22 unknown) @ 17:54 by Lynne Campuzano MD) (unknown) (no (unknown) (unknown) Medical (units (unkno wn) date) complications OB: unknown) none (unknown) (no (unknown) (unknown) Medication (units (unk nown) date) Instructions unknown) Recorded Confirmed Type (unknown) (no (unknown) (unknown) Meds (units (unkno wn) date) unknown) (unknown) (no (unknown) (unknown) Mother (units (unkno wn) date) Hypertension unknown) (unknown) (no (unknown) (unknown) Narrative: (units (unk nown) date) unknown) (unknown) (no (unknown) (unknown) No Known Drug (units ( unknown) date) Allergies Allergy unknown) Verified 07/05/22 10:18 (unknown) (no (unknown) (unknown) Non-invasive (units (u nknown) date) Membranes unknown) Rupture Test: negative (unknown) (no (unknown) (unknown) OB Exam (units (unkno wn) date) unknown) (unknown) (no (unknown) (unknown) OB HPI (units (unkno wn) date) unknown) (unknown) (no (unknown) (unknown) VEGETABLE GRADER History + (units (unknown) date) Physical unknown) (unknown) (no (unknown) (unknown) Objective (units (unkn own) date) unknown) (unknown) (no (unknown) (unknown) Obstetrical (units (un known) date) complications: unknown) none (unknown) (no (unknown) (unknown) Other Estimates (units (unknown) date) 06/26/22 LMP unknown) (Certain) 41w 4d (unknown) (no (unknown) (unknown) PFSH (units (unkno wn) date) unknown) (unknown) (no (unknown) (unknown) Para: 0 (units (unkno wn) date) unknown) (unknown) (no (unknown) (unknown) Past Pregnancies (units (unknown) date) unknown) (unknown) (no (unknown) (unknown) Patient: (units (unkno wn) date) Trini Lorenz unknown) MR#: [id number] (unknown) (no (unknown) (unknown) Position of (units (un known) date) cervix: posterior unknown) (unknown) (no (unknown) (unknown) Preadmission Labs (units (unknown) date) unknown) (unknown) (no (unknown) (unknown) care: (units (unknown) date) good care unknown) (unknown) (no (unknown) (unknown) Prior (units (unkno wn) date) (ies) unknown) (unknown) (no (unknown) (unknown) Provider: (units (unkn own) date) Lynne Campuzano unknown) (unknown) (no (unknown) (unknown) Rate: tachycardic (units (unknown) date) (mildly unknown) tachycardic, anxious) (unknown) (no (unknown) (unknown) Resp (units (unkno wn) date) unknown) (unknown) (no (unknown) (unknown) Result Diagrams: (units (unknown) date) unknown) (unknown) (no (unknown) (unknown) Review of Systems (units (unknown) date) unknown) (unknown) (no (unknown) (unknown) Rubella Antibody (units (unknown) date) 10.5 IU/mL (>15) L unknown) 12/08/21 08:57 (unknown) (no (unknown) (unknown) S/P LEEP (loop (units (unknown) date) electrosurgical unknown) excision procedure) (-08/2014) (unknown) (no (unknown) (unknown) Signed (units (unkno wn) date) By:<Electronically unknown) signed by Lynne Campuzano MD> (unknown) (no (unknown) (unknown) Smoking Status: (units (unknown) date) Never smoker unknown) (unknown) (no (unknown) (unknown) Social History (units (unknown) date) unknown) (unknown) (no (unknown) (unknown) Surgical History (units (unknown) date) (Reviewed 07/07/22 unknown) @ 20:15 by Lynne Campuzano MD) (unknown) (no (unknown) (unknown) Time Patient (units (u nknown) date) Seen: 19:53 unknown) (unknown) (no (unknown) (unknown) Time Spent with (units (unknown) date) Patient unknown) (unknown) (no (unknown) (unknown) Total time spent (units (unknown) date) with greater than unknown) 50% in coordination of care (as documented) (unknown) (no (unknown) (unknown) Type(s) of (units (unk nown) date) exercise: none unknown) (unknown) (no (unknown) (unknown) Ultrasounds: (units (u nknown) date) normal 1st unknown) trimester US and normal mid trimester US (unknown) (no (unknown) (unknown) Uterine (units (unkno wn) date) Contraction unknown) Intensity: Mild (unknown) (no (unknown) (unknown) Variability: (units (u nknown) date) Moderate (11-25) unknown) (unknown) (no (unknown) (unknown) Varicella-Zoster (units (unknown) date) IgG Antibody 509 unknown) index (Immune >165) 12/08/21 (unknown) (no (unknown) (unknown) WG (units (unkno wn) date) unknown) (unknown) (no (unknown) (unknown) Millis teeth (units (u nknown) date) extracted () unknown) (unknown) (no (unknown) (unknown) [Embedded Image (units (unknown) date) Not Available] unknown) (unknown) (no (unknown) (unknown) alcohol intake: (units (unknown) date) former unknown) (unknown) (no (unknown) (unknown) at patient's (units (u nknown) date) floor/unit and/or unknown) counseling patient:: less than 15 minutes (unknown) (no (unknown) (unknown) caffeine: Yes (units ( unknown) date) (aware of 200mg unknown) daily limit) (unknown) (no (unknown) (unknown) carbon monox (units (u nknown) date) detector in home: unknown) Yes (unknown) (no (unknown) (unknown) current (units (o wn) date) occupational unknown) exposures/hazards: No (unknown) (no (unknown) (unknown) cy (units (unkno wn) date) unknown) (unknown) (no (unknown) (unknown) cytotec (units (unkno wn) date) unknown) (unknown) (no (unknown) (unknown) daily servings (units (unknown) date) fruits/ve-4 unknown) (unknown) (no (unknown) (unknown) do you feel safe (units (unknown) date) at home: Yes unknown) (unknown) (no (unknown) (unknown) during the past (units (unknown) date) year weight has: unknown) decreased > 10 lbs (lost 30 lbs) (unknown) (no (unknown) (unknown) eating out: (units (un known) date) rarely or never unknown) (unknown) (no (unknown) (unknown) education level: (units (unknown) date) college unknown) (unknown) (no (unknown) (unknown) fire extinguisher (units (unknown) date) in home: No unknown) (unknown) (no (unknown) (unknown) firearms in home: (units (unknown) date) No unknown) (unknown) (no (unknown) (unknown) frequency: does (units (unknown) date) not exercise unknown) (unknown) (no (unknown) (unknown) household (units (unkn own) date) members: spouse unknown) (unknown) (no (unknown) (unknown) housing: house (units (unknown) date) unknown) (unknown) (no (unknown) (unknown) marital status: (units (unknown) date) unknown) (unknown) (no (unknown) (unknown) number of (units (unkn own) date) children: 0 unknown) (unknown) (no (unknown) (unknown) occupational (units (u nknown) date) status: unemployed unknown) (unknown) (no (unknown) (unknown) pets and animals: (units (unknown) date) Yes (2 dogs) unknown) (unknown) (no (unknown) (unknown) prenat.vits,emilia,m (units (unknown) date) [id number] 1 unknown) tab PO DAILY 11/27/21 07/07/22 History (unknown) (no (unknown) (unknown) seatbelt use: (units ( unknown) date) always unknown) (unknown) (no (unknown) (unknown) second hand (units (un known) date) exposure: No unknown) (unknown) (no (unknown) (unknown) sentences (units (unkn own) date) unknown) (unknown) (no (unknown) (unknown) special donna (units ( unknown) date) needs: No unknown) (unknown) (no (unknown) (unknown) substance use (units ( unknown) date) type: does not use unknown) (unknown) (no (unknown) (unknown) travel history: (units (unknown) date) recent ([place] unknown) 12/2020) (unknown) (no (unknown) (unknown) uncomplicated. (units (unknown) date) She is feeling unknown) well, denies any problems. (unknown) (no (unknown) (unknown) water heater temp (units (unknown) date) set < 120 deg: No unknown) (unsure) (unknown) (no (unknown) (unknown) well-balanced (units ( unknown) date) diet: about half unknown) the time (unknown) (no (unknown) (unknown) working smoke (units ( unknown) date) detector in home: unknown) Yes Result panel 357 (unknown) (no date) (unknown) (unknown) NEGATIVE (units (unkn own) unknown) (unknown) (no date) (unknown) (unknown) Negative (units (unkn own) unknown) (unknown) (no date) (unknown) (unknown) Negative (units (unkn own) unknown) (unknown) (no date) (unknown) (unknown) O Positive (units (un known) unknown) Result panel 358 (unknown) (no (unknown) (unknown) (no value) (units (unk nown) date) unknown) (unknown) (no (unknown) (unknown) [id number] (units (unkno wn) date) unknown) (unknown) (no (unknown) (unknown) Age/Sex: 27 / F (units (unknown) date) unknown) (unknown) (no (unknown) (unknown) Contraction (units (un known) date) intensity: Mild unknown) (unknown) (no (unknown) (unknown) Contractions (units (u nknown) date) unknown) (unknown) (no (unknown) (unknown) : 1995 (units (unknown) date) Acct:[id number] unknown) (unknown) (no (unknown) (unknown) Date Patient (units (u nknown) date) Seen: 07/08/22 unknown) (unknown) (no (unknown) (unknown) Date of (units (unkno wn) date) Service: unknown) 07/07/22 (unknown) (no (unknown) (unknown) Date/Time (units (unkn own) date) unknown) (unknown) (no (unknown) (unknown) Effacement (%): (units (unknown) date) 20 unknown) (unknown) (no (unknown) (unknown) Status (units (u nknown) date) unknown) (unknown) (no (unknown) (unknown) station: (units (unknown) date) -2 unknown) (unknown) (no (unknown) (unknown) status: (units ( unknown) date) Category l unknown) (unknown) (no (unknown) (unknown) [facility] (units (unknown) date) [address] [place] [id number] unknown) [place] [address] (unknown) (no (unknown) (unknown) VEGETABLE GRADER Progress (units (unknown) date) Note unknown) (unknown) (no (unknown) (unknown) Pain Control (units (u nknown) date) unknown) (unknown) (no (unknown) (unknown) Pain control: (units ( unknown) date) tolerating well unknown) (unknown) (no (unknown) (unknown) Patient: (units (unkno wn) date) Trini Lorenz unknown) MR#: [id number] (unknown) (no (unknown) (unknown) Pelvic Exam (units (un known) date) unknown) (unknown) (no (unknown) (unknown) Provider: (units (unkn own) date) Jeanne Garcia unknown) D.OKath (unknown) (no (unknown) (unknown) Signed By: (units (unk nown) date) unknown) (unknown) (no (unknown) (unknown) Time Patient (units (u nknown) date) Seen: 07:45 unknown) Result panel 359 (unknown) (no (unknown) (unknown) (no value) (units (unk nown) date) unknown) (unknown) (no (unknown) (unknown) 27-year-old (units (un known) date) at 41 weeks unknown) here for post-dates induction. She received (unknown) (no (unknown) (unknown) [id number] (units (unkno wn) date) unknown) (unknown) (no (unknown) (unknown) Age/Sex: 27 / F (units (unknown) date) unknown) (unknown) (no (unknown) (unknown) Amniotic (units (unkno wn) date) membrane status: unknown) Intact (unknown) (no (unknown) (unknown) Assessment and (units (unknown) date) Plan unknown) (unknown) (no (unknown) (unknown) Assessment: (units (un known) date) induction unknown) ongoing (unknown) (no (unknown) (unknown) Cervidil (units (unkno wn) date) overnight. This unknown) morning she is marilynn every 2-3 minutes though (unknown) (no (unknown) (unknown) Comments: (units (unkn own) date) unknown) (unknown) (no (unknown) (unknown) Contraction (units (un known) date) frequency (min): unknown) 3 (unknown) (no (unknown) (unknown) Contraction (units (un known) date) intensity: Mild unknown) (unknown) (no (unknown) (unknown) Contraction (units (un known) date) pattern: Regular unknown) (unknown) (no (unknown) (unknown) Contractions (units (u nknown) date) unknown) (unknown) (no (unknown) (unknown) : 1995 (units (unknown) date) Acct:[id number] unknown) (unknown) (no (unknown) (unknown) Date Patient (units (u nknown) date) Seen: 07/08/22 unknown) (unknown) (no (unknown) (unknown) Date of (units (unkno wn) date) Service: unknown) 07/07/22 (unknown) (no (unknown) (unknown) Date/Time (units (unkn own) date) unknown) (unknown) (no (unknown) (unknown) Dilation (cm): (units (unknown) date) 0.5 unknown) (unknown) (no (unknown) (unknown) Effacement (%): (units (unknown) date) 80 unknown) (unknown) (no (unknown) (unknown) Heart (units (un known) date) Rate Baseline: unknown) 140 (unknown) (no (unknown) (unknown) Monitor (units ( unknown) date) Accelerations: unknown) Present (unknown) (no (unknown) (unknown) Monitor (units ( unknown) date) Decelerations: unknown) Absent (unknown) (no (unknown) (unknown) Monitor (units ( unknown) date) Variability: unknown) Moderate (unknown) (no (unknown) (unknown) Status (units (u nknown) date) unknown) (unknown) (no (unknown) (unknown) station: (units (unknown) date) -2 unknown) (unknown) (no (unknown) (unknown) status: (units ( unknown) date) Category l unknown) (unknown) (no (unknown) (unknown) [facility] (units (unknown) date) [address] [place] [id number] unknown) [place] [address] (unknown) (no (unknown) (unknown) Monitor mode: (units ( unknown) date) External unknown) (unknown) (no (unknown) (unknown) VEGETABLE GRADER Progress (units (unknown) date) Note unknown) (unknown) (no (unknown) (unknown) Pain Control (units (u nknown) date) unknown) (unknown) (no (unknown) (unknown) Pain control: (units ( unknown) date) tolerating well unknown) (unknown) (no (unknown) (unknown) Patient: (units (unkno wn) date) Trini Lorenz unknown) MR#: [id number] (unknown) (no (unknown) (unknown) Pelvic Exam (units (un known) date) unknown) (unknown) (no (unknown) (unknown) Plan: begin (units (un known) date) patient unknown) augmentation (unknown) (no (unknown) (unknown) Provider: (units (unkn own) date) Jeanne Garcia unknown) D.O. (unknown) (no (unknown) (unknown) She rates pain (units (unknown) date) is a 2 to 3/10. unknown) Denies leaking or bleeding. Baby has been (unknown) (no (unknown) (unknown) She slept okay (units (unknown) date) overnight and unknown) has been feeling some mild cramping this morning. (unknown) (no (unknown) (unknown) Signed By: (units (unk nown) date) unknown) (unknown) (no (unknown) (unknown) Time Patient (units (u nknown) date) Seen: 07:45 unknown) (unknown) (no (unknown) (unknown) active. She has (units (unknown) date) no complaints. unknown) (unknown) (no (unknown) (unknown) denies pain (units (un known) date) beyond cramping. unknown) SVE this morning 0.5/80/-2 soft, posterior. She (unknown) (no (unknown) (unknown) has (units (unkno wn) date) unknown) Result panel 360 (unknown) (no (unknown) (unknown) (no value) (units (unk nown) date) unknown) (unknown) (no (unknown) (unknown) 27-year-old (units (un known) date) at 41 weeks unknown) here for post-dates induction. She received (unknown) (no (unknown) (unknown) [id number] (units (unkno wn) date) unknown) (unknown) (no (unknown) (unknown) Age/Sex: 27 / F (units (unknown) date) unknown) (unknown) (no (unknown) (unknown) Amniotic (units (unkno wn) date) membrane status: unknown) Intact (unknown) (no (unknown) (unknown) Assessment and (units (unknown) date) Plan unknown) (unknown) (no (unknown) (unknown) Assessment: (units (un known) date) induction unknown) ongoing (unknown) (no (unknown) (unknown) Cervidil (units (unkno wn) date) overnight. This unknown) morning she is marilynn every 2-3 minutes though (unknown) (no (unknown) (unknown) Comments: (units (unkn own) date) unknown) (unknown) (no (unknown) (unknown) Contraction (units (un known) date) frequency (min): unknown) 3 (unknown) (no (unknown) (unknown) Contraction (units (un known) date) intensity: Mild unknown) (unknown) (no (unknown) (unknown) Contraction (units (un known) date) pattern: Regular unknown) (unknown) (no (unknown) (unknown) Contractions (units (u nknown) date) unknown) (unknown) (no (unknown) (unknown) : 1995 (units (unknown) date) Acct:[id number] unknown) (unknown) (no (unknown) (unknown) Date Patient (units (u nknown) date) Seen: 07/08/22 unknown) (unknown) (no (unknown) (unknown) Date of (units (unkno wn) date) Service: unknown) 07/07/22 (unknown) (no (unknown) (unknown) Date/Time (units (unkn own) date) unknown) (unknown) (no (unknown) (unknown) Dilation (cm): (units (unknown) date) 0.5 unknown) (unknown) (no (unknown) (unknown) Effacement (%): (units (unknown) date) 80 unknown) (unknown) (no (unknown) (unknown) Heart (units (un known) date) Rate Baseline: unknown) 140 (unknown) (no (unknown) (unknown) Monitor (units ( unknown) date) Accelerations: unknown) Present (unknown) (no (unknown) (unknown) Monitor (units ( unknown) date) Decelerations: unknown) Absent (unknown) (no (unknown) (unknown) Monitor (units ( unknown) date) Variability: unknown) Moderate (unknown) (no (unknown) (unknown) Status (units (u nknown) date) unknown) (unknown) (no (unknown) (unknown) station: (units (unknown) date) -2 unknown) (unknown) (no (unknown) (unknown) status: (units ( unknown) date) Category l unknown) (unknown) (no (unknown) (unknown) [facility] (units (unknown) date) [address] unknown) [place] [address] (unknown) (no (unknown) (unknown) Monitor mode: (units ( unknown) date) External unknown) (unknown) (no (unknown) (unknown) VEGETABLE GRADER Progress (units (unknown) date) Note unknown) (unknown) (no (unknown) (unknown) Pain Control (units (u nknown) date) unknown) (unknown) (no (unknown) (unknown) Pain control: (units ( unknown) date) tolerating well unknown) (unknown) (no (unknown) (unknown) Patient: (units (unkno wn) date) Trini Lorenz unknown) MR#: [id number] (unknown) (no (unknown) (unknown) Pelvic Exam (units (un known) date) unknown) (unknown) (no (unknown) (unknown) Plan: begin (units (un known) date) patient unknown) augmentation (unknown) (no (unknown) (unknown) Provider: (units (unkn own) date) Jeanne Garcia unknown) D.O. (unknown) (no (unknown) (unknown) She rates pain (units (unknown) date) is a 2 to 3/10. unknown) Denies leaking or bleeding. Baby has been (unknown) (no (unknown) (unknown) She slept okay (units (unknown) date) overnight and unknown) has been feeling some mild cramping this morning. (unknown) (no (unknown) (unknown) Signed By: (units (unk nown) date) unknown) (unknown) (no (unknown) (unknown) Time Patient (units (u nknown) date) Seen: 07:45 unknown) (unknown) (no (unknown) (unknown) active. She has (units (unknown) date) no complaints. unknown) (unknown) (no (unknown) (unknown) denies pain (units (un known) date) beyond cramping. unknown) SVE this morning 0.5/80/-2 soft, posterior. She (unknown) (no (unknown) (unknown) has (units (unkno wn) date) unknown) Result panel 361 (unknown) (no (unknown) (unknown) (no value) (units (unk nown) date) unknown) (unknown) (no (unknown) (unknown) 07/08/22 0937 (units ( unknown) date) unknown) (unknown) (no (unknown) (unknown) 27-year-old (units (unknown) date) at 41 weeks here unknown) for post-dates induction. She received (unknown) (no (unknown) (unknown) [id number] (units (unkno wn) date) unknown) (unknown) (no (unknown) (unknown) Age/Sex: 27 / F (units (unknown) date) unknown) (unknown) (no (unknown) (unknown) Amniotic (units (unkno wn) date) membrane status: unknown) Intact (unknown) (no (unknown) (unknown) Assessment and (units (unknown) date) Plan unknown) (unknown) (no (unknown) (unknown) Assessment: (units (un known) date) induction ongoing unknown) (unknown) (no (unknown) (unknown) Cervidil (units (unkno wn) date) overnight. This unknown) morning she is marilynn every 2-3 minutes though (unknown) (no (unknown) (unknown) Comments: (units (unkn own) date) unknown) (unknown) (no (unknown) (unknown) Contraction (units (un known) date) frequency (min): unknown) 3 (unknown) (no (unknown) (unknown) Contraction (units (un known) date) intensity: Mild unknown) (unknown) (no (unknown) (unknown) Contraction (units (un known) date) pattern: Regular unknown) (unknown) (no (unknown) (unknown) Contractions (units (u nknown) date) unknown) (unknown) (no (unknown) (unknown) : 1995 (units (unknown) date) Acct:[id number] unknown) (unknown) (no (unknown) (unknown) Date Patient (units (u nknown) date) Seen: 07/08/22 unknown) (unknown) (no (unknown) (unknown) Date of Service: (units (unknown) date) 07/07/22 unknown) (unknown) (no (unknown) (unknown) Date/Time (units (unkn own) date) unknown) (unknown) (no (unknown) (unknown) Dilation (cm): (units (unknown) date) 0.5 unknown) (unknown) (no (unknown) (unknown) Effacement (%): (units (unknown) date) 80 unknown) (unknown) (no (unknown) (unknown) Heart Rate (units (unknown) date) Baseline: 140 unknown) (unknown) (no (unknown) (unknown) Monitor (units ( unknown) date) Accelerations: unknown) Present (unknown) (no (unknown) (unknown) Monitor (units ( unknown) date) Decelerations: unknown) Absent (unknown) (no (unknown) (unknown) Monitor (units ( unknown) date) Variability: unknown) Moderate (unknown) (no (unknown) (unknown) Status (units (u nknown) date) unknown) (unknown) (no (unknown) (unknown) station: (units (unknown) date) -2 unknown) (unknown) (no (unknown) (unknown) status: (units ( unknown) date) Category l unknown) (unknown) (no (unknown) (unknown) [facility] (units (unknown) date) [address] unknown) [place] [address] (unknown) (no (unknown) (unknown) Monitor mode: (units ( unknown) date) External unknown) (unknown) (no (unknown) (unknown) VEGETABLE GRADER Progress (units (unknown) date) Note unknown) (unknown) (no (unknown) (unknown) Pain Control (units (u nknown) date) unknown) (unknown) (no (unknown) (unknown) Pain control: (units ( unknown) date) tolerating well unknown) (unknown) (no (unknown) (unknown) Patient: (units (unkno wn) date) Trini Lorenz unknown) MR#: [id number] (unknown) (no (unknown) (unknown) Pelvic Exam (units (un known) date) unknown) (unknown) (no (unknown) (unknown) Plan: begin (units (un known) date) patient unknown) augmentation (unknown) (no (unknown) (unknown) Provider: (units (unkn own) date) Jeanne Garcia unknown) D.O. (unknown) (no (unknown) (unknown) She rates pain (units (unknown) date) is a 2 to 3/10. unknown) Denies leaking or bleeding. Baby has been (unknown) (no (unknown) (unknown) She slept okay (units (unknown) date) overnight and has unknown) been feeling some mild cramping this morning. (unknown) (no (unknown) (unknown) Signed (units (unkno wn) date) By:<Electronicall unknown) y signed by Jeanne Garcia D.O.> (unknown) (no (unknown) (unknown) Time Patient (units (u nknown) date) Seen: 07:45 unknown) (unknown) (no (unknown) (unknown) active. She has (units (unknown) date) no complaints. unknown) (unknown) (no (unknown) (unknown) continue to (units (un known) date) monitor closely. unknown) (unknown) (no (unknown) (unknown) denies pain (units (un known) date) beyond cramping. unknown) SVE this morning 0.5/80/-2 soft, posterior. She (unknown) (no (unknown) (unknown) does with (units (unkn own) date) pitocin. EFM unknown) overall reassuring. There are periods of minimal (unknown) (no (unknown) (unknown) has a h/o a LEEP (units (unknown) date) which may impact unknown) her ability to dilate but will see how she (unknown) (no (unknown) (unknown) variability with (units (unknown) date) accelerations unknown) then return to moderate variability. Will Result panel 362 (unknown) (no (unknown) (unknown) (no value) (units (unk nown) date) unknown) (unknown) (no (unknown) (unknown) 07/08/22 1140 (units ( unknown) date) unknown) (unknown) (no (unknown) (unknown) 27 year old (units (un known) date) at 41 weeks unknown) undergoing postdates induction, now in a regular (unknown) (no (unknown) (unknown) [id number] (units (unkno wn) date) unknown) (unknown) (no (unknown) (unknown) Age/Sex: 27 / F (units (unknown) date) unknown) (unknown) (no (unknown) (unknown) Amniotic (units (unkno wn) date) membrane status: unknown) Intact (unknown) (no (unknown) (unknown) Assessment and (units (unknown) date) Plan unknown) (unknown) (no (unknown) (unknown) Assessment: (units (un known) date) induction unknown) ongoing (unknown) (no (unknown) (unknown) Cervix is now (units ( unknown) date) completely unknown) thinned out though not yet dilating. Will continue to (unknown) (no (unknown) (unknown) Comments: (units (unkn own) date) unknown) (unknown) (no (unknown) (unknown) Contraction (units (un known) date) frequency (min): unknown) 2 (unknown) (no (unknown) (unknown) Contraction (units (un known) date) intensity: Mild unknown) (unknown) (no (unknown) (unknown) Contraction (units (un known) date) pattern: Regular unknown) (unknown) (no (unknown) (unknown) Contractions (units (u nknown) date) unknown) (unknown) (no (unknown) (unknown) : 1995 (units (unknown) date) Acct:[id number] unknown) (unknown) (no (unknown) (unknown) Date Patient (units (u nknown) date) Seen: 07/08/22 unknown) (unknown) (no (unknown) (unknown) Date of (units (unkno wn) date) Service: unknown) 07/07/22 (unknown) (no (unknown) (unknown) Date/Time (units (unkn own) date) unknown) (unknown) (no (unknown) (unknown) Dilation (cm): (units (unknown) date) 0.5 unknown) (unknown) (no (unknown) (unknown) Effacement (%): (units (unknown) date) 100 unknown) (unknown) (no (unknown) (unknown) Heart (units (un known) date) Rate Baseline: unknown) 150 (unknown) (no (unknown) (unknown) Monitor (units ( unknown) date) Accelerations: unknown) Present (unknown) (no (unknown) (unknown) Monitor (units ( unknown) date) Decelerations: unknown) Late (unknown) (no (unknown) (unknown) Monitor (units ( unknown) date) Variability: unknown) Minimal (unknown) (no (unknown) (unknown) Status (units (u nknown) date) unknown) (unknown) (no (unknown) (unknown) station: (units (unknown) date) -2 unknown) (unknown) (no (unknown) (unknown) status: (units ( unknown) date) Category ll unknown) (unknown) (no (unknown) (unknown) [facility] (units (unknown) date) [address] unknown) [place] [address] (unknown) (no (unknown) (unknown) Monitor mode: (units ( unknown) date) External unknown) (unknown) (no (unknown) (unknown) VEGETABLE GRADER Progress (units (unknown) date) Note unknown) (unknown) (no (unknown) (unknown) Pain Control (units (u nknown) date) unknown) (unknown) (no (unknown) (unknown) Pain control: (units ( unknown) date) tolerating well unknown) (unknown) (no (unknown) (unknown) Patient: (units (unkno wn) date) Trini Lorenz unknown) MR#: [id number] (unknown) (no (unknown) (unknown) Pelvic Exam (units (un known) date) unknown) (unknown) (no (unknown) (unknown) Pitocin rate (units (u nknown) date) (mU/min): 5 unknown) (unknown) (no (unknown) (unknown) Plan: (units (unkno wn) date) continuous unknown) present management (unknown) (no (unknown) (unknown) Provider: (units (unkn own) date) Jeanne Garcia unknown) D.O. (unknown) (no (unknown) (unknown) She is feeling (units (unknown) date) more with unknown) contractions, rates pain 4/10. (unknown) (no (unknown) (unknown) Signed (units (unkno wn) date) By:<Electronical unknown) ly signed by Chuy HammO.> (unknown) (no (unknown) (unknown) Time Patient (units (u nknown) date) Seen: 11:10 unknown) (unknown) (no (unknown) (unknown) and will see (units (u nknown) date) her this unknown) afternoon. (unknown) (no (unknown) (unknown) context of (units (unk nown) date) tachysystole. unknown) Lates resolved with fluid bolus and decreased pitocin. (unknown) (no (unknown) (unknown) contraction (units (un known) date) pattern on unknown) minimal pitocin. She was having late decels in the (unknown) (no (unknown) (unknown) monitor closely (units (unknown) date) and continue unknown) pitocin. Dr. Campuzano updated with patient status Result panel 363 (unknown) (no (unknown) (unknown) (no value) (units (unk nown) date) unknown) (unknown) (no (unknown) (unknown) 0845. She was (units ( unknown) date) marilynn unknown) frequently after the Pitocin. Pitocin was started and (unknown) (no (unknown) (unknown) 07/08/22 1428 (units ( unknown) date) unknown) (unknown) (no (unknown) (unknown) [id number] (units (unkno wn) date) unknown) (unknown) (no (unknown) (unknown) Age/Sex: 27 / F (units (unknown) date) unknown) (unknown) (no (unknown) (unknown) Amniotic (units (unkno wn) date) membrane status: unknown) Intact (unknown) (no (unknown) (unknown) Assessment and (units (unknown) date) Plan unknown) (unknown) (no (unknown) (unknown) Assessment: (units (un known) date) induction unknown) ongoing (unknown) (no (unknown) (unknown) Comments: (units (unkn own) date) unknown) (unknown) (no (unknown) (unknown) Contraction (units (un known) date) frequency (min): unknown) 6 (unknown) (no (unknown) (unknown) Contraction (units (un known) date) intensity: Mild unknown) (unknown) (no (unknown) (unknown) Contraction (units (un known) date) pattern: Regular unknown) (unknown) (no (unknown) (unknown) Contractions (units (u nknown) date) have now spaced unknown) and are more mild to pt now. (unknown) (no (unknown) (unknown) Contractions on (units (unknown) date) admission: unknown) regular (q 9 minutes) (unknown) (no (unknown) (unknown) Contractions (units (u nknown) date) unknown) (unknown) (no (unknown) (unknown) Current Cat 1, (units (unknown) date) episodes of Cat unknown) 2 EFM with late decels, resolve with position (unknown) (no (unknown) (unknown) : 1995 (units (unknown) date) Acct:[id number] unknown) (unknown) (no (unknown) (unknown) Date Patient (units (u nknown) date) Seen: 07/08/22 unknown) (unknown) (no (unknown) (unknown) Date of (units (unkno wn) date) Service: unknown) 07/07/22 (unknown) (no (unknown) (unknown) Date/Time (units (unkn own) date) unknown) (unknown) (no (unknown) (unknown) Dilation (cm): (units (unknown) date) 0.5 unknown) (unknown) (no (unknown) (unknown) Effacement (%): (units (unknown) date) 100 unknown) (unknown) (no (unknown) (unknown) Heart (units (un known) date) Rate Baseline: unknown) 135 (unknown) (no (unknown) (unknown) Monitor (units ( unknown) date) Accelerations: unknown) Present (unknown) (no (unknown) (unknown) Monitor (units ( unknown) date) Decelerations: unknown) Absent (unknown) (no (unknown) (unknown) Monitor (units ( unknown) date) Variability: unknown) Moderate (unknown) (no (unknown) (unknown) Status (units (u nknown) date) unknown) (unknown) (no (unknown) (unknown) station: (units (unknown) date) -2 unknown) (unknown) (no (unknown) (unknown) status: (units ( unknown) date) Category l unknown) (unknown) (no (unknown) (unknown) [facility] (units (unknown) date) [address] unknown) [place] [address] (unknown) (no (unknown) (unknown) Monitor mode: (units ( unknown) date) External unknown) (unknown) (no (unknown) (unknown) VEGETABLE GRADER Progress (units (unknown) date) Note unknown) (unknown) (no (unknown) (unknown) Pain Control (units (u nknown) date) unknown) (unknown) (no (unknown) (unknown) Pain control: (units ( unknown) date) tolerating well unknown) (unknown) (no (unknown) (unknown) Patient: (units (unkno wn) date) Gerda,Triin unknown) MR#: [id number] (unknown) (no (unknown) (unknown) Pelvic Exam (units (un known) date) unknown) (unknown) (no (unknown) (unknown) Plan: begin (units (un known) date) patient unknown) augmentation (unknown) (no (unknown) (unknown) Provider: (units (unkn own) date) Lynne Campuzano unknown) Sirisha WYLIE (unknown) (no (unknown) (unknown) Resuming care (units ( unknown) date) from Dr Garcia unknown) who watched pt this am for me. Cervidil removed at (unknown) (no (unknown) (unknown) Signed (units (unkno wn) date) By:<Electronical unknown) ly signed by Lynne Campuzano MD> (unknown) (no (unknown) (unknown) Time Patient (units (u nknown) date) Seen: 14:00 unknown) (unknown) (no (unknown) (unknown) Will restart (units (u nknown) date) Pitocin with unknown) contractions spacing. [facility] current Cat 1. (unknown) (no (unknown) (unknown) change (units (unkno wn) date) unknown) (unknown) (no (unknown) (unknown) episodes of (units (un known) date) late decels, unknown) since she was marilynn frequently on her own after (unknown) (no (unknown) (unknown) reached 5 mu. (units ( unknown) date) Pt's cervix was unknown) ftp/100 at 1100. Pitocin turned off due to some (unknown) (no (unknown) (unknown) the Cervidil (units (u nknown) date) and had thinned unknown) her cervix with the contractions. Result panel 364 (unknown) (no (unknown) (unknown) (no value) (units (unk nown) date) unknown) (unknown) (no (unknown) (unknown) 07/08/22 1850 (units ( unknown) date) unknown) (unknown) (no (unknown) (unknown) [id number] (units (unkno wn) date) unknown) (unknown) (no (unknown) (unknown) Age/Sex: 27 / F (units (unknown) date) unknown) (unknown) (no (unknown) (unknown) Amniotic (units (unkno wn) date) membrane status: unknown) Ruptured (@ 1640 clear) (unknown) (no (unknown) (unknown) Assessment and (units (unknown) date) Plan unknown) (unknown) (no (unknown) (unknown) Assessment: (units (un known) date) induction ongoing unknown) (unknown) (no (unknown) (unknown) Comments: (units (unkn own) date) unknown) (unknown) (no (unknown) (unknown) Contraction (units (un known) date) frequency (min): unknown) 2 (unknown) (no (unknown) (unknown) Contraction (units (un known) date) intensity: Mild unknown) (unknown) (no (unknown) (unknown) Contraction (units (un known) date) pattern: Regular unknown) (unknown) (no (unknown) (unknown) Contractions (units (u nknown) date) unknown) (unknown) (no (unknown) (unknown) : 1995 (units (unknown) date) Acct:[id number] unknown) (unknown) (no (unknown) (unknown) Date Patient (units (u nknown) date) Seen: 07/08/22 unknown) (unknown) (no (unknown) (unknown) Date of Service: (units (unknown) date) 07/07/22 unknown) (unknown) (no (unknown) (unknown) Date/Time (units (unkn own) date) unknown) (unknown) (no (unknown) (unknown) Dilation (cm): (units (unknown) date) 0.5 unknown) (unknown) (no (unknown) (unknown) Effacement (%): (units (unknown) date) 100 unknown) (unknown) (no (unknown) (unknown) Heart Rate (units (unknown) date) Baseline: 145 unknown) (unknown) (no (unknown) (unknown) Monitor (units ( unknown) date) Decelerations: unknown) Absent (unknown) (no (unknown) (unknown) Monitor (units ( unknown) date) Variability: unknown) Moderate (with episdodes of minimal as sleep cycles (unknown) (no (unknown) (unknown) Status (units (u nknown) date) unknown) (unknown) (no (unknown) (unknown) station: (units (unknown) date) -3 unknown) (unknown) (no (unknown) (unknown) status: (units ( unknown) date) Category l unknown) (unknown) (no (unknown) (unknown) [facility] (units (unknown) date) [address] unknown) [place] [address] (unknown) (no (unknown) (unknown) Trini became (units (unknown) date) mildly unknown) uncomfortable with contractions. At 4:40 p.m., about 90 (unknown) (no (unknown) (unknown) Monitor mode: (units ( unknown) date) External unknown) (unknown) (no (unknown) (unknown) VEGETABLE GRADER Progress (units (unknown) date) Note unknown) (unknown) (no (unknown) (unknown) Pain Control (units (u nknown) date) unknown) (unknown) (no (unknown) (unknown) Pain control: (units ( unknown) date) tolerating well unknown) (unknown) (no (unknown) (unknown) Patient: (units (unkno wn) date) Trini Lorenz unknown) MR#: [id number] (unknown) (no (unknown) (unknown) Pelvic Exam (units (un known) date) unknown) (unknown) (no (unknown) (unknown) Pitocin rate (units (u nknown) date) (mU/min): 6 unknown) (unknown) (no (unknown) (unknown) Plan: continuous (units (unknown) date) present unknown) management ( continue Pitocin) (unknown) (no (unknown) (unknown) Provider: (units (unkn own) date) Lynne Campuzano unknown) Sirisha WYLIE (unknown) (no (unknown) (unknown) Signed (units (unkno wn) date) By:<Electronicall unknown) y signed by Lynne Campuzano MD> (unknown) (no (unknown) (unknown) Time Patient (units (u nknown) date) Seen: 18:25 unknown) (unknown) (no (unknown) (unknown) cervical change, (units (unknown) date) but contractions unknown) becoming more uncomfortable to her, (unknown) (no (unknown) (unknown) consistent with (units (unknown) date) early labor. Will unknown) recheck cervix in a few hours, earlier as (unknown) (no (unknown) (unknown) contractions (units (u nknown) date) frequent. Will unknown) try to slightly increase the Pitocin since no (unknown) (no (unknown) (unknown) minutes ago, she (units (unknown) date) had spontaneous unknown) rupture membranes of clear fluid. Contractions (unknown) (no (unknown) (unknown) needed (units (unkno wn) date) unknown) (unknown) (no (unknown) (unknown) then felt (units (unkn own) date) stronger to her, unknown) rating 5/10, and more frequent. (unknown) (no (unknown) (unknown) then picked back (units (unknown) date) up to moderate unknown) variability) Result panel 365 (unknown) (no (unknown) (unknown) (no value) (units (unk nown) date) unknown) (unknown) (no (unknown) (unknown) [id number] (units (unkno wn) date) unknown) (unknown) (no (unknown) (unknown) Age/Sex: 27 / F (units (unknown) date) unknown) (unknown) (no (unknown) (unknown) Amniotic (units (unkno wn) date) membrane status: unknown) Ruptured (@ 1640 clear) (unknown) (no (unknown) (unknown) Contraction (units (un known) date) frequency (min): unknown) 2 (unknown) (no (unknown) (unknown) Contraction (units (un known) date) intensity: Mild unknown) (unknown) (no (unknown) (unknown) Contraction (units (un known) date) pattern: Regular unknown) (unknown) (no (unknown) (unknown) Contractions (units (u nknown) date) unknown) (unknown) (no (unknown) (unknown) : 1995 (units (unknown) date) Acct:[id number] unknown) (unknown) (no (unknown) (unknown) Date Patient (units (u nknown) date) Seen: 07/08/22 unknown) (unknown) (no (unknown) (unknown) Date of (units (unkno wn) date) Service: unknown) 07/07/22 (unknown) (no (unknown) (unknown) Date/Time (units (unkn own) date) unknown) (unknown) (no (unknown) (unknown) Effacement (%): (units (unknown) date) 100 unknown) (unknown) (no (unknown) (unknown) Status (units (u nknown) date) unknown) (unknown) (no (unknown) (unknown) station: (units (unknown) date) -3 unknown) (unknown) (no (unknown) (unknown) status: (units ( unknown) date) Category l unknown) (unknown) (no (unknown) (unknown) [facility] (units (unknown) date) [address] unknown) [place] [address] (unknown) (no (unknown) (unknown) Monitor mode: (units ( unknown) date) External unknown) (unknown) (no (unknown) (unknown) VEGETABLE GRADER Progress (units (unknown) date) Note unknown) (unknown) (no (unknown) (unknown) Pain Control (units (u nknown) date) unknown) (unknown) (no (unknown) (unknown) Pain control: (units ( unknown) date) tolerating well unknown) (unknown) (no (unknown) (unknown) Patient: (units (unkno wn) date) Trini Lorenz unknown) MR#: [id number] (unknown) (no (unknown) (unknown) Pelvic Exam (units (un known) date) unknown) (unknown) (no (unknown) (unknown) Provider: (units (unkn own) date) Lynne Campuzano unknown) Sirisha WYLIE (unknown) (no (unknown) (unknown) Signed By: (units (unk nown) date) unknown) (unknown) (no (unknown) (unknown) Time Patient (units (u nknown) date) Seen: 23:30 unknown) Result panel 366 (unknown) (no (unknown) (unknown) (no value) (units (unk nown) date) unknown) (unknown) (no (unknown) (unknown) 07/09/22 0050 (units ( unknown) date) unknown) (unknown) (no (unknown) (unknown) [id number] (units (unkno wn) date) unknown) (unknown) (no (unknown) (unknown) Age/Sex: 27 / F (units (unknown) date) unknown) (unknown) (no (unknown) (unknown) Amniotic (units (unkno wn) date) [place] unknown) ruptured (unknown) (no (unknown) (unknown) Amniotic (units (unkno wn) date) membrane status: unknown) Ruptured (@ 1640 clear) (unknown) (no (unknown) (unknown) Assessment and (units (unknown) date) Plan unknown) (unknown) (no (unknown) (unknown) Assessment: (units (un known) date) induction ongoing unknown) (unknown) (no (unknown) (unknown) Bulging bag (units (un known) date) present. After unknown) discussion patient agreed and membranes, for moreno (unknown) (no (unknown) (unknown) Cervix (units (unkno wn) date) unchanged, 0.5 unknown) cm, 100% surrounding DARLENE so thin that it felt like (unknown) (no (unknown) (unknown) Comments: (units (unkn own) date) unknown) (unknown) (no (unknown) (unknown) Continue Pitocin (units (unknown) date) unknown) (unknown) (no (unknown) (unknown) Contraction (units (un known) date) frequency (min): unknown) 3 (unknown) (no (unknown) (unknown) Contraction (units (un known) date) intensity: unknown) Moderate (unknown) (no (unknown) (unknown) Contraction (units (un known) date) pattern: Regular unknown) (unknown) (no (unknown) (unknown) Contractions (units (u nknown) date) unknown) (unknown) (no (unknown) (unknown) : 1995 (units (unknown) date) Acct:[id number] unknown) (unknown) (no (unknown) (unknown) Date Patient (units (u nknown) date) Seen: 07/08/22 unknown) (unknown) (no (unknown) (unknown) Date of Service: (units (unknown) date) 07/07/22 unknown) (unknown) (no (unknown) (unknown) Date/Time (units (unkn own) date) unknown) (unknown) (no (unknown) (unknown) Dilation (cm): 4 (units (unknown) date) unknown) (unknown) (no (unknown) (unknown) EFM alternate (units ( unknown) date) between category unknown) 1 and intermittently category 2. Occasional late (unknown) (no (unknown) (unknown) Effacement (%): (units (unknown) date) 100 unknown) (unknown) (no (unknown) (unknown) Heart Rate (units (unknown) date) Baseline: 145 unknown) (unknown) (no (unknown) (unknown) Monitor (units ( unknown) date) Accelerations: unknown) Episodic (unknown) (no (unknown) (unknown) Monitor (units ( unknown) date) Decelerations: unknown) Episodic (unknown) (no (unknown) (unknown) Monitor (units ( unknown) date) Variability: unknown) Moderate (unknown) (no (unknown) (unknown) Status (units (u nknown) date) unknown) (unknown) (no (unknown) (unknown) station: (units (unknown) date) -2 unknown) (unknown) (no (unknown) (unknown) status: (units ( unknown) date) Category ll unknown) (unknown) (no (unknown) (unknown) [facility] (units (unknown) date) [address] [place] [address] unknown) [place] [address] (unknown) (no (unknown) (unknown) Trini feels (units ( unknown) date) increased unknown) discomfort with the contractions, but coping very well (unknown) (no (unknown) (unknown) Monitor mode: (units ( unknown) date) External unknown) (unknown) (no (unknown) (unknown) No leakage of (units ( unknown) date) fluid seen menses unknown) small amount at time of ruptured membranes. Her (unknown) (no (unknown) (unknown) VEGETABLE GRADER Progress (units (unknown) date) Note unknown) (unknown) (no (unknown) (unknown) Pain Control (units (u nknown) date) unknown) (unknown) (no (unknown) (unknown) Pain control: (units ( unknown) date) tolerating well unknown) (unknown) (no (unknown) (unknown) Patient: (units (unkno wn) date) Jose Francisco Lorenzssica unknown) MR#: [id number] (unknown) (no (unknown) (unknown) Pelvic Exam (units (un known) date) unknown) (unknown) (no (unknown) (unknown) Provider: (units (unkn own) date) Lynne Campuzano unknown) Sirisha WYLIE (unknown) (no (unknown) (unknown) Recheck cervix (units (unknown) date) in 2-3 hours, to unknown) titrate the Pitocin (unknown) (no (unknown) (unknown) Signed (units (unkno wn) date) By:<Electronicall unknown) y signed by yLnne Campuzano MD> (unknown) (no (unknown) (unknown) Time Patient (units (u nknown) date) Seen: 23:30 unknown) (unknown) (no (unknown) (unknown) amniotic bag. Pt (units (unknown) date) with h/o LEEP unknown) procedure, appears cervix not opening due to scar (unknown) (no (unknown) (unknown) clear fluid, c/w (units (unknown) date) SROM. unknown) (unknown) (no (unknown) (unknown) contractions had (units (unknown) date) become very unknown) frequent right after she had the small amount of (unknown) (no (unknown) (unknown) deceleration, (units ( unknown) date) isolated. unknown) Occasionally has few in a row and repositioned with (unknown) (no (unknown) (unknown) fluid. (units (unkno wn) date) unknown) (unknown) (no (unknown) (unknown) moderate. (units (unkn own) date) unknown) (unknown) (no (unknown) (unknown) resolution. (units (un known) date) During sleep unknown) cycles variability minimal, then improves back to (unknown) (no (unknown) (unknown) ruptured for (units (u nknown) date) clear fluid. Over unknown) next few contractions large amounts of clear (unknown) (no (unknown) (unknown) tissue. (units (unkno wn) date) Discussed with unknown) patient, cervix stretched with some difficulty finally (unknown) (no (unknown) (unknown) to 1 cm then (units (u nknown) date) able to get 2 unknown) fingers into 2 cm from stretch to 4 cm. (unknown) (no (unknown) (unknown) with breathing, (units (unknown) date) concentrating, unknown) and now past hour using nitrous gas. Result panel 367 (unknown) (no (unknown) (unknown) (no value) (units (unk nown) date) unknown) (unknown) (no (unknown) (unknown) [id number] (units (unkno wn) date) unknown) (unknown) (no (unknown) (unknown) Age/Sex: 27 / F (units (unknown) date) unknown) (unknown) (no (unknown) (unknown) Amniotic (units (unkno wn) date) membrane status: unknown) Ruptured (@ 1640 clear) (unknown) (no (unknown) (unknown) Comments: (units (unkn own) date) unknown) (unknown) (no (unknown) (unknown) Contraction (units (un known) date) frequency (min): unknown) 3 (unknown) (no (unknown) (unknown) Contraction (units (un known) date) intensity: unknown) Moderate (unknown) (no (unknown) (unknown) Contraction (units (un known) date) pattern: Regular unknown) (unknown) (no (unknown) (unknown) Contractions (units (u nknown) date) unknown) (unknown) (no (unknown) (unknown) : 1995 (units (unknown) date) Acct:[id number] unknown) (unknown) (no (unknown) (unknown) Date Patient (units (u nknown) date) Seen: 07/09/22 unknown) (unknown) (no (unknown) (unknown) Date of Service: (units (unknown) date) 07/07/22 unknown) (unknown) (no (unknown) (unknown) Date/Time (units (unkn own) date) unknown) (unknown) (no (unknown) (unknown) Effacement (%): (units (unknown) date) 100 unknown) (unknown) (no (unknown) (unknown) Status (units (u nknown) date) unknown) (unknown) (no (unknown) (unknown) station: (units (unknown) date) -2 unknown) (unknown) (no (unknown) (unknown) status: (units ( unknown) date) Category ll unknown) (unknown) (no (unknown) (unknown) [facility] (units (unknown) date) [address] unknown) [place] [address] (unknown) (no (unknown) (unknown) Trini became (units (unknown) date) more unknown) uncomfortable with contractions and received an epidural. (unknown) (no (unknown) (unknown) Monitor mode: (units ( unknown) date) External unknown) (unknown) (no (unknown) (unknown) VEGETABLE GRADER Progress (units (unknown) date) Note unknown) (unknown) (no (unknown) (unknown) Pain Control (units (u nknown) date) unknown) (unknown) (no (unknown) (unknown) Pain control: (units ( unknown) date) epidural unknown) (unknown) (no (unknown) (unknown) Patient: (units (unkno wn) date) Trini Lorenz unknown) MR#: [id number] (unknown) (no (unknown) (unknown) Pelvic Exam (units (un known) date) unknown) (unknown) (no (unknown) (unknown) Provider: (units (unkn own) date) Lynne Campuzano unknown) Sirisha WYLIE (unknown) (no (unknown) (unknown) She reported (units (u nknown) date) ringing in her unknown) ears after the test dose. She ended up with a high (unknown) (no (unknown) (unknown) Signed By: (units (unk nown) date) unknown) (unknown) (no (unknown) (unknown) Time Patient (units (u nknown) date) Seen: 06:00 unknown) (unknown) (no (unknown) (unknown) epidural level (units (unknown) date) T. Her d unknown) Result panel 368 (unknown) (no (unknown) (unknown) (no value) (units (unk nown) date) unknown) (unknown) (no (unknown) (unknown) [id number] (units (unkno wn) date) unknown) (unknown) (no (unknown) (unknown) Age/Sex: 27 / F (units (unknown) date) unknown) (unknown) (no (unknown) (unknown) Amniotic (units (unkno wn) date) membrane status: unknown) Ruptured (@ 1640 clear) (unknown) (no (unknown) (unknown) Assessment and (units (unknown) date) Plan unknown) (unknown) (no (unknown) (unknown) Assessment: (units (un known) date) other unknown) (unknown) (no (unknown) (unknown) Comments: (units (unkn own) date) unknown) (unknown) (no (unknown) (unknown) Contraction (units (un known) date) frequency (min): unknown) 3 (unknown) (no (unknown) (unknown) Contraction (units (un known) date) intensity: unknown) Moderate (unknown) (no (unknown) (unknown) Contraction (units (un known) date) pattern: Regular unknown) (unknown) (no (unknown) (unknown) Contractions (units (u nknown) date) unknown) (unknown) (no (unknown) (unknown) : 1995 (units (unknown) date) Acct:[id number] unknown) (unknown) (no (unknown) (unknown) Date Patient (units (u nknown) date) Seen: 07/09/22 unknown) (unknown) (no (unknown) (unknown) Date of Service: (units (unknown) date) 07/07/22 unknown) (unknown) (no (unknown) (unknown) Date/Time (units (unkn own) date) unknown) (unknown) (no (unknown) (unknown) Dilation (cm): 5 (units (unknown) date) unknown) (unknown) (no (unknown) (unknown) EFM back to (units (un known) date) category 1 now unknown) with Pitocin off (unknown) (no (unknown) (unknown) Effacement (%): (units (unknown) date) 100 unknown) (unknown) (no (unknown) (unknown) Monitor (units ( unknown) date) Accelerations: unknown) Present (unknown) (no (unknown) (unknown) Monitor (units ( unknown) date) Decelerations: unknown) Late and Recurrent (unknown) (no (unknown) (unknown) Status (units (u nknown) date) unknown) (unknown) (no (unknown) (unknown) station: (units (unknown) date) -2 unknown) (unknown) (no (unknown) (unknown) status: (units ( unknown) date) Category ll ( Now unknown) back to category 1 with Pitocin off) (unknown) (no (unknown) (unknown) [facility] (units (unknown) date) [address] unknown) [place] [address] (unknown) (no (unknown) (unknown) Trini became (units (unknown) date) more unknown) uncomfortable with contractions and received an epidural. (unknown) (no (unknown) (unknown) Monitor mode: (units ( unknown) date) External unknown) (unknown) (no (unknown) (unknown) VEGETABLE GRADER Progress (units (unknown) date) Note unknown) (unknown) (no (unknown) (unknown) Pain Control (units (u nknown) date) unknown) (unknown) (no (unknown) (unknown) Pain control: (units ( unknown) date) epidural unknown) (unknown) (no (unknown) (unknown) Patient: (units (unkno wn) date) Trini Lorenz unknown) MR#: [id number] (unknown) (no (unknown) (unknown) Pelvic Exam (units (un known) date) unknown) (unknown) (no (unknown) (unknown) Pitocin rate (units (u nknown) date) (mU/min): 0 unknown) (unknown) (no (unknown) (unknown) Provider: (units (unkn own) date) Lynne Campuzano unknown) Sirisha WYLIE (unknown) (no (unknown) (unknown) She reported (units (u nknown) date) ringing in her unknown) ears after the test dose. She ended up with a high (unknown) (no (unknown) (unknown) Signed By: (units (unk nown) date) unknown) (unknown) (no (unknown) (unknown) Time Patient (units (u nknown) date) Seen: 06:00 unknown) (unknown) (no (unknown) (unknown) as contractions (units (unknown) date) became stronger unknown) heart rate with episodes of recurrent (unknown) (no (unknown) (unknown) bolus given with (units (unknown) date) gradual unknown) improvement in BP. heart rate did have a (unknown) (no (unknown) (unknown) epidural level (units (unknown) date) to T1. Her BP unknown) dropped. Patient given ephedrine and IV fluid (unknown) (no (unknown) (unknown) fluid bolus and (units (unknown) date) turned left unknown) lateral as well. EFM has had a period of (unknown) (no (unknown) (unknown) her blood (units (unkn own) date) pressure unknown) recovered. Pitocin was turned off and she was given the IV (unknown) (no (unknown) (unknown) late (units (unkno wn) date) decelerations. unknown) late decelerations initially improved with IV fluids and (unknown) (no (unknown) (unknown) patient having (units (unknown) date) received some unknown) fentanyl prior as well. (unknown) (no (unknown) (unknown) position change, (units (unknown) date) but then unknown) returned. heart rate variability minimal with (unknown) (no (unknown) (unknown) prolonged (units (unkn own) date) deceleration for unknown) 8 minutes,with the drop in BP, then recovered As (unknown) (no (unknown) (unknown) recovery. On (units (u nknown) date) review of unknown) EFM/toco strip, after rupture membranes of forewaters, Result panel 369 (unknown) (no (unknown) (unknown) (no value) (units (unk nown) date) unknown) (unknown) (no (unknown) (unknown) [id number] (units (unkno wn) date) unknown) (unknown) (no (unknown) (unknown) Age/Sex: 27 / F (units (unknown) date) unknown) (unknown) (no (unknown) (unknown) COVID-19 (units (unkno wn) date) status: Negative unknown) (unknown) (no (unknown) (unknown) COVID-19 (units (unkno wn) date) unknown) (unknown) (no (unknown) (unknown) Changes to H+P: (units (unknown) date) No unknown) (unknown) (no (unknown) (unknown) Criteria for (units (u nknown) date) continued unknown) procedure: Non-surgical alternatives not available or (unknown) (no (unknown) (unknown) : 1995 (units (unknown) date) Acct:[id number] unknown) (unknown) (no (unknown) (unknown) Date of (units (unkno wn) date) Service: unknown) 07/07/22 (unknown) (no (unknown) (unknown) History + (units (unkn own) date) Physical unknown) reviewed/Exam performed by Physician: Yes (unknown) (no (unknown) (unknown) Interval Note (units ( unknown) date) unknown) (unknown) (no (unknown) (unknown) [facility] (units (unknown) date) [address] unknown) [place] [address] (unknown) (no (unknown) (unknown) Patient: (units (unkno wn) date) Trini Lorenz unknown) MR#: [id number] (unknown) (no (unknown) (unknown) Pre-operative (units ( unknown) date) Note unknown) (unknown) (no (unknown) (unknown) Provider: (units (unkn own) date) Lynne Campuzano unknown) Sirisha WYLIE (unknown) (no (unknown) (unknown) Result (units (unkno wn) date) date/Date tested unknown) (Pos, Neg/Pending): 07/07/22 (unknown) (no (unknown) (unknown) Signed By: (units (unk nown) date) unknown) (unknown) (no (unknown) (unknown) appropriate per (units (unknown) date) current SOC unknown) Result panel 370 (unknown) (no (unknown) (unknown) (no value) (units (unk nown) date) unknown) (unknown) (no (unknown) (unknown) 07/09/22 0710 (units ( unknown) date) unknown) (unknown) (no (unknown) (unknown) 07/09/22 0711 (units ( unknown) date) unknown) (unknown) (no (unknown) (unknown) [id number] (units (unkno wn) date) unknown) (unknown) (no (unknown) (unknown) Age/Sex: 27 / F (units (unknown) date) unknown) (unknown) (no (unknown) (unknown) Amniotic (units (unkno wn) date) membrane status: unknown) Ruptured (@ 1640 clear) (unknown) (no (unknown) (unknown) Assessment and (units (unknown) date) Plan unknown) (unknown) (no (unknown) (unknown) Assessment: (units (un known) date) other unknown) (unknown) (no (unknown) (unknown) COVID-19 status: (units (unknown) date) Negative unknown) (unknown) (no (unknown) (unknown) COVID-19 (units (unkno wn) date) unknown) (unknown) (no (unknown) (unknown) Changes to H+P: (units (unknown) date) No unknown) (unknown) (no (unknown) (unknown) Comments: (units (unkn own) date) unknown) (unknown) (no (unknown) (unknown) Contraction (units (un known) date) frequency (min): unknown) 3 (unknown) (no (unknown) (unknown) Contraction (units (un known) date) intensity: unknown) Moderate (unknown) (no (unknown) (unknown) Contraction (units (un known) date) pattern: Regular unknown) (unknown) (no (unknown) (unknown) Contractions (units (u nknown) date) unknown) (unknown) (no (unknown) (unknown) Criteria for (units (u nknown) date) continued unknown) procedure: Non-surgical alternatives not available or (unknown) (no (unknown) (unknown) : 1995 (units (unknown) date) Acct:[id number] unknown) (unknown) (no (unknown) (unknown) Date Patient (units (u nknown) date) Seen: 07/09/22 unknown) (unknown) (no (unknown) (unknown) Date of Service: (units (unknown) date) 07/07/22 unknown) (unknown) (no (unknown) (unknown) Date/Time (units (unkn own) date) unknown) (unknown) (no (unknown) (unknown) Dilation (cm): 5 (units (unknown) date) unknown) (unknown) (no (unknown) (unknown) EFM back to (units (un known) date) category 1 now unknown) with Pitocin off (unknown) (no (unknown) (unknown) Effacement (%): (units (unknown) date) 100 unknown) (unknown) (no (unknown) (unknown) Monitor (units ( unknown) date) Accelerations: unknown) Present (unknown) (no (unknown) (unknown) Monitor (units ( unknown) date) Decelerations: unknown) Late and Recurrent (unknown) (no (unknown) (unknown) Status (units (u nknown) date) unknown) (unknown) (no (unknown) (unknown) station: (units (unknown) date) -2 unknown) (unknown) (no (unknown) (unknown) status: (units ( unknown) date) Category ll ( Now unknown) back to category 1 with Pitocin off) (unknown) (no (unknown) (unknown) H+P completed (units ( unknown) date) within 30 days unknown) and has changed as indicated here:: no change in (unknown) (no (unknown) (unknown) History + (units (unkn own) date) Physical unknown) reviewed/Exam performed by Physician: Yes (unknown) (no (unknown) (unknown) I recommended (units ( unknown) date) due to unknown) intolerance to labor. Called after (unknown) (no (unknown) (unknown) I reviewed the (units (unknown) date) section unknown) procedure. I discussed risks of the procedure (unknown) (no (unknown) (unknown) Interval Note (units ( unknown) date) unknown) (unknown) (no (unknown) (unknown) [facility] (units (unknown) date) [address] [place] [address] unknown) [place] [address] (unknown) (no (unknown) (unknown) Trini became (units (unknown) date) more unknown) uncomfortable with contractions and received an epidural. (unknown) (no (unknown) (unknown) Monitor mode: (units ( unknown) date) External unknown) (unknown) (no (unknown) (unknown) VEGETABLE GRADER Progress (units (unknown) date) Note unknown) (unknown) (no (unknown) (unknown) Pain Control (units (u nknown) date) unknown) (unknown) (no (unknown) (unknown) Pain control: (units ( unknown) date) epidural unknown) (unknown) (no (unknown) (unknown) Patient: (units (unkno wn) date) Trini Lorenz unknown) MR#: [id number] (unknown) (no (unknown) (unknown) Pelvic Exam (units (un known) date) unknown) (unknown) (no (unknown) (unknown) Pitocin rate (units (u nknown) date) (mU/min): 0 unknown) (unknown) (no (unknown) (unknown) Pitocin. She (units (u nknown) date) agreed with unknown) proceeding with section for delivery. (unknown) (no (unknown) (unknown) Plan: (units (unknown) date) unknown) (unknown) (no (unknown) (unknown) Pre-operative (units ( unknown) date) Note unknown) (unknown) (no (unknown) (unknown) Provider: (units (unkn own) date) Lynne Campuzano unknown) Sirisha WYLIE (unknown) (no (unknown) (unknown) Result date/Date (units (unknown) date) tested (Pos, unknown) Neg/Pending): 07/07/22 (unknown) (no (unknown) (unknown) She has partial (units (unknown) date) relief with the unknown) epidural, now feeling some cramping on her left (unknown) (no (unknown) (unknown) She reported (units (u nknown) date) ringing in her unknown) ears after the test dose. She ended up with a (unknown) (no (unknown) (unknown) Signed (units (unkno wn) date) By:<Electronicall unknown) y signed by Lynne Campuzano MD> (unknown) (no (unknown) (unknown) Time Patient (units (u nknown) date) Seen: 06:00 unknown) (unknown) (no (unknown) (unknown) appropriate per (units (unknown) date) current SOC unknown) (unknown) (no (unknown) (unknown) as with delivery (units (unknown) date) the baby. Verbal unknown) and written consent obtained. Or crew and OR (unknown) (no (unknown) (unknown) contractions and (units (unknown) date) would not unknown) tolerate stronger labor contractions that her needed (unknown) (no (unknown) (unknown) crew were (units (unkn own) date) called. unknown) (unknown) (no (unknown) (unknown) decelerations. (units (unknown) date) Baby is not unknown) tolerating current level Pitocin, strength of (unknown) (no (unknown) (unknown) events with BP (units (unknown) date) drop with unknown) epidural and high level, after measures taken to (unknown) (no (unknown) (unknown) fluid bolus (units (un known) date) given with unknown) gradual improvement in BP. heart rate did have a (unknown) (no (unknown) (unknown) forewaters, as (units (unknown) date) contractions unknown) became stronger heart rate with episodes of (unknown) (no (unknown) (unknown) heart rate (units (unk nown) date) variability unknown) increased epidsodes minimal variability. (unknown) (no (unknown) (unknown) high epidural (units ( unknown) date) level to T1. Her unknown) BP dropped. Patient given ephedrine and IV (unknown) (no (unknown) (unknown) improve her BP (units (unknown) date) and improvement unknown) in prolonged deceleration. Called after some (unknown) (no (unknown) (unknown) including (units (unkn own) date) bleeding, unknown) infection, injury to internal organs including urinary (unknown) (no (unknown) (unknown) labor. (units (unkno wn) date) Proceeding with unknown) primary section for intolerance to labor (unknown) (no (unknown) (unknown) maternal (units (unkno wn) date) history. unknown) heart rate pattern indicates intolerance to (unknown) (no (unknown) (unknown) of EFM prior to (units (unknown) date) the epidural, unknown) noted increased episodes of mild late (unknown) (no (unknown) (unknown) of injury to the (units (unknown) date) baby with unknown) delivery, from making incision in the uterus as well (unknown) (no (unknown) (unknown) period of (units (unkn own) date) recovery. On unknown) review of EFM/toco strip, after rupture membranes of (unknown) (no (unknown) (unknown) position change, (units (unknown) date) but then unknown) recurred. She did receive some fentanyl, but (unknown) (no (unknown) (unknown) prolonged (units (unkn own) date) deceleration for unknown) 8 minutes, scarlet to 60-90 with the drop in BP, with (unknown) (no (unknown) (unknown) recommended (units (un known) date) unknown) sections. EFM is reassuring now after turning off the (unknown) (no (unknown) (unknown) recovery time to (units (unknown) date) review EFM to see unknown) whether okay to restart Pitocin. On review (unknown) (no (unknown) (unknown) recurrent late (units (unknown) date) decelerations, unknown) initially resolved with IV fluid bolus and (unknown) (no (unknown) (unknown) side as epidural (units (unknown) date) level has unknown) decreased after initial test dose. (unknown) (no (unknown) (unknown) system, bladder, (units (unknown) date) ureters and risk unknown) of injury to the bowel. I also discussed risk (unknown) (no (unknown) (unknown) then recovered (units (unknown) date) as her blood unknown) pressure recovered. Pitocin was turned off and she (unknown) (no (unknown) (unknown) to progress. (units (u nknown) date) Discussed with unknown) the patient intolerance of labor and (unknown) (no (unknown) (unknown) was given the IV (units (unknown) date) fluid bolus and unknown) turned left lateral as well. EFM has had a Result panel 371 (unknown) (no (unknown) (unknown) (no value) (units (unk nown) date) unknown) (unknown) (no (unknown) (unknown) 2nd layer being (units (unknown) date) in a vertical unknown) imbricating type fashion. Hemostasis was noted. (unknown) (no (unknown) (unknown) [id number] (units (unkno wn) date) unknown) (unknown) (no (unknown) (unknown) A transverse (units (un known) date) incision was made unknown) in the lower uterus and the incision was extended (unknown) (no (unknown) (unknown) After recovered (units (unknown) date) in PACU, unknown) transferred to the birthing center for routine (unknown) (no (unknown) (unknown) Age/Sex: 27 / F (units (unknown) date) unknown) (unknown) (no (unknown) (unknown) Anesthesia Type: (units (unknown) date) General unknown) (unknown) (no (unknown) (unknown) Systems Engineering Manager: (units (unk nown) date) Jeanne Garcia unknown) (unknown) (no (unknown) (unknown) Blood products (units (unknown) date) transfused: none unknown) (unknown) (no (unknown) (unknown) Closure Type: (units ( unknown) date) primary unknown) (unknown) (no (unknown) (unknown) Complications: (units (unknown) date) none unknown) (unknown) (no (unknown) (unknown) Condition: (units (unk nown) date) stable unknown) (unknown) (no (unknown) (unknown) : 1995 (units (unknown) date) Acct:[id number] unknown) (unknown) (no (unknown) (unknown) Date of Service: (units (unknown) date) 07/07/22 unknown) (unknown) (no (unknown) (unknown) Date of (units (unkno wn) date) procedure: unknown) 07/09/22 (unknown) (no (unknown) (unknown) Description of (units (unknown) date) procedure: unknown) (unknown) (no (unknown) (unknown) Disposition: (units (u nknown) date) PACU unknown) (unknown) (no (unknown) (unknown) Estimated Blood (units (unknown) date) Loss (mL): 300 unknown) (unknown) (no (unknown) (unknown) Findings: (units (unkn own) date) unknown) (unknown) (no (unknown) (unknown) IV fluids: [] ml (units (unknown) date) crystalloid unknown) (unknown) (no (unknown) (unknown) was (units (unk nown) date) vertex, ROP unknown) position. No nuchal cord. Baby girl delivered at 8:11 (unknown) (no (unknown) (unknown) [facility] (units (unknown) date) [address] [place] [address] unknown) [place] [address] (unknown) (no (unknown) (unknown) Normal appearing (units (unknown) date) maternal uterus unknown) and ovaries (unknown) (no (unknown) (unknown) Operative (units (unkn own) date) Date/Time/Diagnos unknown) es (unknown) (no (unknown) (unknown) Operative Note (units (unknown) date) unknown) (unknown) (no (unknown) (unknown) Operative Notes (units (unknown) date) unknown) (unknown) (no (unknown) (unknown) Patient: (units (unkno wn) date) Trini Lorenz unknown) MR#: [id number] (unknown) (no (unknown) (unknown) Plan for (units (unkno wn) date) aftercare: unknown) (unknown) (no (unknown) (unknown) Post-op (units (unkno wn) date) diagnosis: same unknown) (With 0P position on delivery, macrosomic ) (unknown) (no (unknown) (unknown) Post-operative (units (unknown) date) unknown) (unknown) (no (unknown) (unknown) Pre-op diagnosis: (units (unknown) date) 41 week unknown) , induction labor, intolerance of labor (unknown) (no (unknown) (unknown) Primary lower (units ( unknown) date) transverse unknown) section (unknown) (no (unknown) (unknown) Procedure + (units (un known) date) Clinicians unknown) (unknown) (no (unknown) (unknown) Procedure in (units (u nknown) date) detail: unknown) (unknown) (no (unknown) (unknown) Procedure: (units (unk nown) date) unknown) (unknown) (no (unknown) (unknown) Provider: (units ( own) date) Lynne Campuzano unknown) Sirisha WYLIE (unknown) (no (unknown) (unknown) Same procedure (units (unknown) date) as scheduled: Yes unknown) (unknown) (no (unknown) (unknown) She was (units (o wn) date) transferred from unknown) the center to the operating room. After an (unknown) (no (unknown) (unknown) Signed By: (units (unk n) date) unknown) (unknown) (no (unknown) (unknown) Specimen(s): (units (u nknown) date) other (Cord blood unknown) to lab. Umbilical cord gases. No pathology (unknown) (no (unknown) (unknown) Surgeon: Lynne (units (u nk) ) Sirisha Campuzano unknown) (unknown) (no (unknown) (unknown) The tubes and (units ( unknown) date) ovaries were unknown) inspected and noted to be normal. The uterus was (unknown) (no (unknown) (unknown) The uterus was (units (unknown) date) brought through unknown) the abdominal incision and closed in 2 layers (unknown) (no (unknown) (unknown) Time of (units (unkno wn) date) procedure: 08:11 unknown) (unknown) (no (unknown) (unknown) Urine output: [] (units (unknown) date) mL unknown) (unknown) (no (unknown) (unknown) a.m., weighing 9 (units (unknown) date) lb 11 oz with unknown) Apgars of 8 and 9 at 1 and 5 minutes (unknown) (no (unknown) (unknown) adequate level (units (unknown) date) of spinal unknown) anesthesia was obtained, she was placed in the supine (unknown) (no (unknown) (unknown) and some clot (units ( unknown) date) was removed. The unknown) uterine incision was re- inspected and good (unknown) (no (unknown) (unknown) and was bluntly (units (unknown) date) extended unknown) transversely. The superior and inferior edges of the (unknown) (no (unknown) (unknown) carried down to (units (unknown) date) the level of the unknown) fascia. The fascia was incised in the midline (unknown) (no (unknown) (unknown) continued (units (unkn own) date) hemostasis. The unknown) abdomen was closed. The muscles were reapproximated (unknown) (no (unknown) (unknown) continuous (units (unk nown) date) suture of 0 unknown) Vicryl. The skin was closed with a subcuticular suture (unknown) (no (unknown) (unknown) cried (units (unkno wn) date) spontaneously. unknown) Cord was clamped and cut and the was handed off to (unknown) (no (unknown) (unknown) dissection. The (units (unknown) date) muscles were unknown) bluntly split in the midline. The parietal (unknown) (no (unknown) (unknown) fascia were (units (un known) date) elevated and unknown) dissected off the rectus muscles with sharp and blunt (unknown) (no (unknown) (unknown) fundal pressure. (units (unknown) date) was in the unknown) [] position. Anterior and posterior (unknown) (no (unknown) (unknown) hemostasis was (units (unknown) date) noted. The pelvis unknown) was irrigated. Repeat inspection showed (unknown) (no (unknown) (unknown) of 4 0 Monocryl. (units (unknown) date) Steri-Strips and unknown) sterile Aquacel dressing was placed. She (unknown) (no (unknown) (unknown) peritoneum was (units (unknown) date) elevated, incised unknown) and extended bluntly. The bladder blade was (unknown) (no (unknown) (unknown) placed back into (units (unknown) date) the maternal unknown) abdomen. The paracolic gutters were inspected and (unknown) (no (unknown) (unknown) placed. The (units (un known) date) visceral unknown) peritoneum was elevated off the lower uterus, incised and (unknown) (no (unknown) (unknown) position, Lorenzana (units (unknown) date) catheter was unknown) placed and she was prepped and draped in routine (unknown) (no (unknown) (unknown) postoperative, (units (unknown) date) care unknown) (unknown) (no (unknown) (unknown) respectively. (units ( unknown) date) Umbilical unknown) arterial cord gas 7.2 (unknown) (no (unknown) (unknown) respiratory (units (un known) date) therapy who was unknown) present for delivery. Cord blood was obtained a (unknown) (no (unknown) (unknown) shoulders (units (unkn own) date) followed by the unknown) body were delivered without difficulty. The (unknown) (no (unknown) (unknown) specimen. The (units ( unknown) date) placenta was unknown) manually removed. It appeared intact with a normal (unknown) (no (unknown) (unknown) specimens) (units (unk nown) date) unknown) (unknown) (no (unknown) (unknown) sterile fashion. (units (unknown) date) A Pfannenstiel unknown) skin incision was made in the lower abdomen and (unknown) (no (unknown) (unknown) the bladder flap (units (unknown) date) was bluntly unknown) created. The bladder blade retractor was placed. (unknown) (no (unknown) (unknown) three-vessel (units (u nknown) date) cord. The uterus unknown) was swept clean of adherent clots and membranes. (unknown) (no (unknown) (unknown) to the uterine (units (unknown) date) incision and unknown) delivered through the incision with some minimal (unknown) (no (unknown) (unknown) tolerated the (units ( unknown) date) procedure well unknown) and went to the recovery room in stable condition. (unknown) (no (unknown) (unknown) transversely (units (u nknown) date) with blunt unknown) dissection. [] fluid was noted. The head was elevated (unknown) (no (unknown) (unknown) wiped of some (units ( unknown) date) minimal blood and unknown) fluid. The anterior cul-de-sac was inspected (unknown) (no (unknown) (unknown) with 0 Vicryl, (units ( unknown) date) the 1st layer unknown) being in running locking continuous fashion and the (unknown) (no (unknown) (unknown) with 2 (units (unkno wn) date) interrupted unknown) sutures of 0 Vicryl. The fascia was closed with running Result panel 372 (unknown) (no (unknown) (unknown) (no value) (units (unk nown) date) unknown) (unknown) (no (unknown) (unknown) 2nd layer being (units (unknown) date) in a vertical unknown) imbricating type fashion. Hemostasis was noted. (unknown) (no (unknown) (unknown) [id number] (units (unkno wn) date) unknown) (unknown) (no (unknown) (unknown) A transverse (units (un known) date) incision was made unknown) in the lower uterus and the incision was extended (unknown) (no (unknown) (unknown) After recovered (units (unknown) date) in PACU, unknown) [facility] ([facility]) (no (unknown) (unknown) Age/Sex: 27 / F (units (unknown) date) unknown) (unknown) (no (unknown) (unknown) Anesthesia Type: (units (unknown) date) General unknown) (unknown) (no (unknown) (unknown) Systems Engineering Manager: (units (unk nown) date) Jeanne Garcia unknown) (unknown) (no (unknown) (unknown) Blood products (units (unknown) date) transfused: none unknown) (unknown) (no (unknown) (unknown) Closure Type: (units ( unknown) date) primary unknown) (unknown) (no (unknown) (unknown) Complications: (units (unknown) date) none unknown) (unknown) (no (unknown) (unknown) Condition: (units (unk nown) date) stable unknown) (unknown) (no (unknown) (unknown) : 1995 (units (unknown) date) Acct:[id number] unknown) (unknown) (no (unknown) (unknown) Date of Service: (units (unknown) date) 07/07/22 unknown) (unknown) (no (unknown) (unknown) Date of (units (unkno wn) date) procedure: unknown) 07/09/22 (unknown) (no (unknown) (unknown) Description of (units (unknown) date) procedure: unknown) (unknown) (no (unknown) (unknown) Disposition: (units (u nknown) date) PACU unknown) (unknown) (no (unknown) (unknown) Estimated Blood (units (unknown) date) Loss (mL): 300 unknown) (unknown) (no (unknown) (unknown) Findings: (units (unkn own) date) unknown) (unknown) (no (unknown) (unknown) Infant was (units (unk nown) date) vertex, ROP unknown) position. No nuchal cord. Baby girl delivered at 8:11 (unknown) (no (unknown) (unknown) [facility] (units (unknown) date) [address] unknown) [place] [address] (unknown) (no (unknown) (unknown) Normal appearing (units (unknown) date) maternal uterus unknown) and ovaries (unknown) (no (unknown) (unknown) Operative (units (unkn own) date) Date/Time/Diagnos unknown) es (unknown) (no (unknown) (unknown) Operative Note (units (unknown) date) unknown) (unknown) (no (unknown) (unknown) Operative Notes (units (unknown) date) unknown) (unknown) (no (unknown) (unknown) Patient: (units (unkno wn) date) Trini Lorenz unknown) MR#: [id number] (unknown) (no (unknown) (unknown) Plan for (units (unkno wn) date) aftercare: unknown) (unknown) (no (unknown) (unknown) Post-op (units (unkno wn) date) diagnosis: same unknown) (With 0P position on delivery, macrosomic infant) (unknown) (no (unknown) (unknown) Post-operative (units (unknown) date) unknown) (unknown) (no (unknown) (unknown) Pre-op diagnosis: (units (unknown) date) 41 week unknown) , induction labor, intolerance of labor (unknown) (no (unknown) (unknown) Primary lower (units ( unknown) date) transverse unknown) section (unknown) (no (unknown) (unknown) Procedure + (units (un known) date) Clinicians unknown) (unknown) (no (unknown) (unknown) Procedure in (units (u nknown) date) detail: unknown) (unknown) (no (unknown) (unknown) Procedure: (units (unk nown) date) unknown) (unknown) (no (unknown) (unknown) Provider: (units (unkn own) date) Lynne Campuzano unknown) Sirisha WYLIE (unknown) (no (unknown) (unknown) Same procedure (units (unknown) date) as scheduled: Yes unknown) (unknown) (no (unknown) (unknown) She was (units (o wn) date) transferred from unknown) the center to the operating room. After an (unknown) (no (unknown) (unknown) Signed By: (units (unk nown) date) unknown) (unknown) (no (unknown) (unknown) Specimen(s): (units (u nknown) date) other (Cord blood unknown) to lab. Umbilical cord gases. No pathology (unknown) (no (unknown) (unknown) Surgeon: Lynne (units (u nknown) ) Sirisha Campuzano unknown) (unknown) (no (unknown) (unknown) The tubes and (units ( unknown) date) ovaries were unknown) inspected and noted to be normal. The uterus was (unknown) (no (unknown) (unknown) The uterus was (units (unknown) date) brought through unknown) the abdominal incision and closed in 2 layers (unknown) (no (unknown) (unknown) Time of (units (unkno wn) date) procedure: 08:11 unknown) (unknown) (no (unknown) (unknown) Umbilical (units (unkn own) date) arterial cord gas unknown) 7.2 (unknown) (no (unknown) (unknown) Urine output: [] (units (unknown) date) mL unknown) (unknown) (no (unknown) (unknown) a.m, weighing 9 (units (unknown) date) lb 11 oz with unknown) Apgars of 8 and 9 at 1 and 5 minutes respectively. (unknown) (no (unknown) (unknown) adequate level (units (unknown) date) of spinal unknown) anesthesia was obtained, she was placed in the supine (unknown) (no (unknown) (unknown) and some clot (units ( unknown) date) was removed. The unknown) uterine incision was re- inspected and good (unknown) (no (unknown) (unknown) and was bluntly (units (unknown) date) extended unknown) transversely. The superior and inferior edges of the (unknown) (no (unknown) (unknown) carried down to (units (unknown) date) the level of the unknown) fascia. The fascia was incised in the midline (unknown) (no (unknown) (unknown) continued (units (unkn own) date) hemostasis. The unknown) abdomen was closed. The muscles were reapproximated (unknown) (no (unknown) (unknown) continuous (units (unk nown) date) suture of 0 unknown) Vicryl. The skin was closed with a subcuticular suture (unknown) (no (unknown) (unknown) cried (units (unkno wn) date) spontaneously. unknown) Cord was clamped and cut and the infant was handed off to (unknown) (no (unknown) (unknown) dissection. The (units (unknown) date) muscles were unknown) bluntly split in the midline. The parietal (unknown) (no (unknown) (unknown) fascia were (units (un known) date) elevated and unknown) dissected off the rectus muscles with sharp and blunt (unknown) (no (unknown) (unknown) fundal pressure. (units (unknown) date) Infant was in the unknown) [] position. Anterior and posterior (unknown) (no (unknown) (unknown) hemostasis was (units (unknown) date) noted. The pelvis unknown) was irrigated. Repeat inspection showed (unknown) (no (unknown) (unknown) of 4 0 Monocryl. (units (unknown) date) Steri-Strips and unknown) sterile Aquacel dressing was placed. She (unknown) (no (unknown) (unknown) peritoneum was (units (unknown) date) elevated, incised unknown) and extended bluntly. The bladder blade was (unknown) (no (unknown) (unknown) placed back into (units (unknown) date) the maternal unknown) abdomen. The paracolic gutters were inspected and (unknown) (no (unknown) (unknown) placed. The (units (un known) date) visceral unknown) peritoneum was elevated off the lower uterus, incised and (unknown) (no (unknown) (unknown) position, Lorenzana (units (unknown) date) catheter was unknown) placed and she was prepped and draped in routine (unknown) (no (unknown) (unknown) postoperative, (units (unknown) date) care unknown) (unknown) (no (unknown) (unknown) respiratory (units (un known) date) therapy who was unknown) present for delivery. Cord blood was obtained a (unknown) (no (unknown) (unknown) shoulders (units (unkn own) date) followed by the unknown) body were delivered without difficulty. The infant (unknown) (no (unknown) (unknown) specimen. The (units ( unknown) date) placenta was unknown) manually removed. It appeared intact with a normal (unknown) (no (unknown) (unknown) specimens) (units (unk nown) date) unknown) (unknown) (no (unknown) (unknown) sterile fashion. (units (unknown) date) A Pfannenstiel unknown) skin incision was made in the lower abdomen and (unknown) (no (unknown) (unknown) the bladder flap (units (unknown) date) was bluntly unknown) created. The bladder blade retractor was placed. (unknown) (no (unknown) (unknown) three-vessel (units (u nknown) date) cord. The uterus unknown) was swept clean of adherent clots and membranes. (unknown) (no (unknown) (unknown) to the uterine (units (unknown) date) incision and unknown) delivered through the incision with some minimal (unknown) (no (unknown) (unknown) tolerated the (units ( unknown) date) procedure well unknown) and went to the recovery room in stable condition. (unknown) (no (unknown) (unknown) transversely (units (u nknown) date) with blunt unknown) dissection. [] fluid was noted. The head was elevated (unknown) (no (unknown) (unknown) wiped of some (units ( unknown) date) minimal blood and unknown) fluid. The anterior cul-de-sac was inspected (unknown) (no (unknown) (unknown) with 0 Vicryl, (units ( unknown) date) the 1st layer unknown) being in running locking continuous fashion and the (unknown) (no (unknown) (unknown) with 2 (units (unkno wn) date) interrupted unknown) sutures of 0 Vicryl. The fascia was closed with running Result panel 373 (unknown) (no (unknown) (unknown) (no value) (units (unk nown) date) unknown) (unknown) (no (unknown) (unknown) [id number] (units (unkno wn) date) unknown) (unknown) (no (unknown) (unknown) After recovered in (units (unknown) date) PACU, transferred unknown) to the birthing center for routine (unknown) (no (unknown) (unknown) Age/Sex: 27 / F (units (unknown) date) unknown) (unknown) (no (unknown) (unknown) Anesthesia Type: (units (unknown) date) General unknown) (unknown) (no (unknown) (unknown) Systems Engineering Manager: (units (unk nown) date) Jeanne Nguyeneder unknown) (unknown) (no (unknown) (unknown) Blood products (units (unknown) date) transfused: none unknown) (unknown) (no (unknown) (unknown) Closure Type: (units ( unknown) date) primary unknown) (unknown) (no (unknown) (unknown) Complications: (units (unknown) date) none unknown) (unknown) (no (unknown) (unknown) Condition: stable (units (unknown) date) unknown) (unknown) (no (unknown) (unknown) : 1995 (units (unknown) date) Acct:[id number] unknown) (unknown) (no (unknown) (unknown) Date of Service: (units (unknown) date) 07/07/22 unknown) (unknown) (no (unknown) (unknown) Date of procedure: (units (unknown) date) 07/09/22 unknown) (unknown) (no (unknown) (unknown) Description of (units (unknown) date) procedure: unknown) (unknown) (no (unknown) (unknown) Disposition: PACU (units (unknown) date) unknown) (unknown) (no (unknown) (unknown) Estimated Blood (units (unknown) date) Loss (mL): 300 unknown) (unknown) (no (unknown) (unknown) Findings: (units (unkn own) date) unknown) (unknown) (no (unknown) (unknown) Lorenzana catheter was (units (unknown) date) prevously placed in unknown) the birthing center. Testing of the (unknown) (no (unknown) (unknown) was in the (units (unknown) date) [] position. unknown) Anterior and posterior shoulders followed by the (unknown) (no (unknown) (unknown) was vertex, (units (unknown) date) ROP position. No unknown) nuchal cord. Baby girl delivered at 8:11 (unknown) (no (unknown) (unknown) [facility] (units (unknown) date) [address] unknown) [place] [address] (unknown) (no (unknown) (unknown) Monocryl. (units (unkn own) date) Steri-Strips and unknown) sterile Aquacel dressing was placed. She tolerated (unknown) (no (unknown) (unknown) Normal appearing (units (unknown) date) maternal uterus and unknown) ovaries (unknown) (no (unknown) (unknown) Operative (units (unkn own) date) Date/Time/Diagnoses unknown) (unknown) (no (unknown) (unknown) Operative Note (units (unknown) date) unknown) (unknown) (no (unknown) (unknown) Operative Notes (units (unknown) date) unknown) (unknown) (no (unknown) (unknown) Patient: (units (unkno wn) date) Trini Lorenz MR#: unknown) M000 (unknown) (no (unknown) (unknown) Plan for (units (unkno wn) date) aftercare: unknown) (unknown) (no (unknown) (unknown) Post-op diagnosis: (units (unknown) date) same (With 0P unknown) position on delivery, macrosomic ) (unknown) (no (unknown) (unknown) Post-operative (units (unknown) date) unknown) (unknown) (no (unknown) (unknown) Pre-op diagnosis: (units (unknown) date) 41 week , unknown) induction labor, intolerance of labor (unknown) (no (unknown) (unknown) Primary lower (units ( unknown) date) transverse unknown) section (unknown) (no (unknown) (unknown) Procedure + (units (un known) date) Clinicians unknown) (unknown) (no (unknown) (unknown) Procedure in (units (u nknown) date) detail: unknown) (unknown) (no (unknown) (unknown) Procedure: (units (unk nown) date) unknown) (unknown) (no (unknown) (unknown) Provider: (units (unkn own) date) Lynne Campuzano unknown) (unknown) (no (unknown) (unknown) Same procedure as (units (unknown) date) scheduled: Yes unknown) (unknown) (no (unknown) (unknown) She was (units (unkno wn) date) transferred from unknown) the center to the operating room. Attempt was (unknown) (no (unknown) (unknown) Signed By: (units (unk nown) date) unknown) (unknown) (no (unknown) (unknown) Specimen(s): other (units (unknown) date) (Cord blood to lab. unknown) Umbilical cord gases. No pathology (unknown) (no (unknown) (unknown) Surgeon: Lynne Grimm (units (unknown) date) Tatianna unknown) (unknown) (no (unknown) (unknown) Time of procedure: (units (unknown) date) 08:11 unknown) (unknown) (no (unknown) (unknown) Umbilical arterial (units (unknown) date) cord gas 7.2 unknown) (unknown) (no (unknown) (unknown) Urine output: 300 (units (unknown) date) mL unknown) (unknown) (no (unknown) (unknown) a.m, weighing 9 lb (units (unknown) date) 11 oz with Apgars unknown) of 8 and 9 at 1 and 5 minutes respectively. (unknown) (no (unknown) (unknown) anesthesia level (units (unknown) date) showed it to be unknown) inadequate. Patient felt sharp with testing (unknown) (no (unknown) (unknown) anesthesia. (units (un known) date) Induction of unknown) general anesthesia was performed. Immediately after (unknown) (no (unknown) (unknown) anesthesiologist (units (unknown) date) recommended unknown) converting to general anesthesia at this time, due (unknown) (no (unknown) (unknown) blunt dissection. (units (unknown) date) [] fluid was noted. unknown) The head was elevated to the uterine (unknown) (no (unknown) (unknown) bluntly created. (units (unknown) date) The bladder blade unknown) retractor was placed. A transverse incision (unknown) (no (unknown) (unknown) body were (units (unkn own) date) delivered without unknown) difficulty. The cried spontaneously. Cord (unknown) (no (unknown) (unknown) dissected off the (units (unknown) date) rectus muscles with unknown) sharp and blunt dissection. The muscles (unknown) (no (unknown) (unknown) escorted out of (units (unknown) date) the room at this unknown) time due to proceeding with general (unknown) (no (unknown) (unknown) fascia. The fascia (units (unknown) date) was incised in the unknown) midline and was bluntly extended (unknown) (no (unknown) (unknown) hemostasis. The (units (unknown) date) abdomen was closed. unknown) The muscles were reapproximated with 2 (unknown) (no (unknown) (unknown) incised and (units (un known) date) extended bluntly. unknown) The bladder blade was placed. The visceral (unknown) (no (unknown) (unknown) incision and (units (u nknown) date) delivered through unknown) the incision with some minimal fundal pressure. (unknown) (no (unknown) (unknown) induction of the (units (unknown) date) anesthesia and unknown) securing the intubation tube, a pfannenstiel (unknown) (no (unknown) (unknown) interrupted (units (un known) date) sutures of 0 unknown) Vicryl. The fascia was closed with running continuous (unknown) (no (unknown) (unknown) layer being in (units (unknown) date) running locking unknown) continuous fashion and the 2nd layer being in a (unknown) (no (unknown) (unknown) made to bolus her (units (unknown) date) epidural, but the unknown) level was inadequate. Epidural pulled and (unknown) (no (unknown) (unknown) manually removed. (units (unknown) date) It appeared intact unknown) with a normal three-vessel cord. The (unknown) (no (unknown) (unknown) maternal abdomen. (units (unknown) date) The paracolic unknown) gutters were inspected and wiped of some (unknown) (no (unknown) (unknown) minimal blood and (units (unknown) date) fluid. The anterior unknown) cul-de-sac was inspected and some clot (unknown) (no (unknown) (unknown) noted. The pelvis (units (unknown) date) was irrigated. unknown) Repeat inspection showed continued (unknown) (no (unknown) (unknown) peritoneum was (units (unknown) date) elevated off the unknown) lower uterus, incised and the bladder flap was (unknown) (no (unknown) (unknown) postoperative, (units (unknown) date) care unknown) (unknown) (no (unknown) (unknown) present for (units (un known) date) delivery. Cord unknown) blood was obtained a specimen. The placenta was (unknown) (no (unknown) (unknown) skin incision was (units (unknown) date) made in the lower unknown) abdomen and carried down to the level of the (unknown) (no (unknown) (unknown) specimens) (units (unk nown) date) unknown) (unknown) (no (unknown) (unknown) spinal anesthesia (units (unknown) date) placed by the unknown) anesthesiologist. She was then placed back in (unknown) (no (unknown) (unknown) suture of 0 (units (un known) date) Vicryl. The skin unknown) was closed with a subcuticular suture of 4 0 (unknown) (no (unknown) (unknown) the procedure well (units (unknown) date) and went to the unknown) recovery room in stable condition. (unknown) (no (unknown) (unknown) the supine (units (unk nown) date) position and she unknown) was prepped and draped in routine sterile fashion. (unknown) (no (unknown) (unknown) through the (units (un known) date) abdominal incision unknown) and closed in 2 layers with 0 Vicryl, the 1st (unknown) (no (unknown) (unknown) to not being able (units (unknown) date) to obtain adequate unknown) regional anesthesia. Her was (unknown) (no (unknown) (unknown) transversely. The (units (unknown) date) superior and unknown) inferior edges of the fascia were elevated and (unknown) (no (unknown) (unknown) uterus was swept (units (unknown) date) clean of adherent unknown) clots and membranes. The uterus was brought (unknown) (no (unknown) (unknown) vertical (units (unkno wn) date) imbricating type unknown) fashion. Hemostasis was noted. The tubes and ovaries (unknown) (no (unknown) (unknown) was clamped and cut (units (unknown) date) and the infant was unknown) handed off to respiratory therapy who was (unknown) (no (unknown) (unknown) was made in the (units (unknown) date) lower uterus and unknown) the incision was extended transversely with (unknown) (no (unknown) (unknown) was removed. The (units (unknown) date) uterine incision unknown) was re- inspected and good hemostasis was (unknown) (no (unknown) (unknown) were bluntly split (units (unknown) date) in the midline. The unknown) parietal peritoneum was elevated, (unknown) (no (unknown) (unknown) were inspected and (units (unknown) date) noted to be normal. unknown) The uterus was placed back into the (unknown) (no (unknown) (unknown) where the skin (units (unknown) date) incision would be unknown) made as well as her upper abdomen. The Result panel 374 (unknown) (no (unknown) (unknown) (no value) (units (unk nown) date) unknown) (unknown) (no (unknown) (unknown) [id number] (units (unkno wn) date) unknown) (unknown) (no (unknown) (unknown) After recovered in (units (unknown) date) PACU, transferred unknown) to the birthing center for routine (unknown) (no (unknown) (unknown) Age/Sex: 27 / F (units (unknown) date) unknown) (unknown) (no (unknown) (unknown) Anesthesia Type: (units (unknown) date) General unknown) (unknown) (no (unknown) (unknown) Anterior and (units (u nknown) date) posterior shoulders unknown) followed by the body were delivered without (unknown) (no (unknown) (unknown) Aquacel dressing (units (unknown) date) was placed. She unknown) tolerated the procedure well and went to the (unknown) (no (unknown) (unknown) Systems Engineering Manager: (units (unk nown) date) Jeanne Garcia unknown) (unknown) (no (unknown) (unknown) Blood products (units (unknown) date) transfused: none unknown) (unknown) (no (unknown) (unknown) Closure Type: (units ( unknown) date) primary unknown) (unknown) (no (unknown) (unknown) Complications: (units (unknown) date) none unknown) (unknown) (no (unknown) (unknown) Condition: stable (units (unknown) date) unknown) (unknown) (no (unknown) (unknown) : 1995 (units (unknown) date) Acct:[id number] unknown) (unknown) (no (unknown) (unknown) Date of Service: (units (unknown) date) 07/07/22 unknown) (unknown) (no (unknown) (unknown) Date of procedure: (units (unknown) date) 07/09/22 unknown) (unknown) (no (unknown) (unknown) Description of (units (unknown) date) procedure: unknown) (unknown) (no (unknown) (unknown) Disposition: PACU (units (unknown) date) unknown) (unknown) (no (unknown) (unknown) Estimated Blood (units (unknown) date) Loss (mL): 300 unknown) (unknown) (no (unknown) (unknown) Findings: (units (unkn own) date) unknown) (unknown) (no (unknown) (unknown) Lorenzana catheter was (units (unknown) date) prevously placed in unknown) the birthing center. Testing of the (unknown) (no (unknown) (unknown) Induction of (units (u nknown) date) general anesthesia unknown) was performed. Immediately after induction of (unknown) (no (unknown) (unknown) was vertex, (units (unknown) date) ROP position. No unknown) nuchal cord. Baby girl delivered at 8:11 (unknown) (no (unknown) (unknown) [facility] (units (unknown) date) [address] unknown) [place] [address] (unknown) (no (unknown) (unknown) Normal appearing (units (unknown) date) maternal uterus and unknown) ovaries (unknown) (no (unknown) (unknown) Operative (units (unkn own) date) Date/Time/Diagnoses unknown) (unknown) (no (unknown) (unknown) Operative Note (units (unknown) date) unknown) (unknown) (no (unknown) (unknown) Operative Notes (units (unknown) date) unknown) (unknown) (no (unknown) (unknown) Patient: (units (o wn) date) Trini Lorenz MR#: unknown) M000 (unknown) (no (unknown) (unknown) Plan for (units (unkno wn) date) aftercare: unknown) (unknown) (no (unknown) (unknown) Post-op diagnosis: (units (unknown) date) same (With 0P unknown) position on delivery, macrosomic infant) (unknown) (no (unknown) (unknown) Post-operative (units (unknown) date) unknown) (unknown) (no (unknown) (unknown) Pre-op diagnosis: (units (unknown) date) 41 week , unknown) induction labor, intolerance of labor (unknown) (no (unknown) (unknown) Primary lower (units ( unknown) date) transverse unknown) section (unknown) (no (unknown) (unknown) Procedure + (units (un known) date) Clinicians unknown) (unknown) (no (unknown) (unknown) Procedure in (units (u nknown) date) detail: unknown) (unknown) (no (unknown) (unknown) Procedure: (units (unk n) date) unknown) (unknown) (no (unknown) (unknown) Provider: (units (unkn own) date) Lynne Campuzano unknown) (unknown) (no (unknown) (unknown) Same procedure as (units (unknown) date) scheduled: Yes unknown) (unknown) (no (unknown) (unknown) She was (units (o wn) date) transferred from unknown) the center to the operating room. Attempt was (unknown) (no (unknown) (unknown) Signed By: (units (unk nown) date) unknown) (unknown) (no (unknown) (unknown) Specimen(s): other (units (unknown) date) (Cord blood to lab. unknown) Umbilical cord gases. No pathology (unknown) (no (unknown) (unknown) Surgeon: Lynne Grimm (units (unknown) date) Tatianna unknown) (unknown) (no (unknown) (unknown) The bladder blade (units (unknown) date) was placed. The unknown) visceral peritoneum was elevated off the (unknown) (no (unknown) (unknown) The fascia was (units (unknown) date) closed with running unknown) continuous suture of 0 Vicryl. The skin (unknown) (no (unknown) (unknown) Time of procedure: (units (unknown) date) 08:11 unknown) (unknown) (no (unknown) (unknown) Umbilical arterial (units (unknown) date) cord gas 7.2 unknown) (unknown) (no (unknown) (unknown) Urine output: 300 (units (unknown) date) mL unknown) (unknown) (no (unknown) (unknown) a.m, weighing 9 lb (units (unknown) date) 11 oz with Apgars unknown) of 8 and 9 at 1 and 5 minutes respectively. (unknown) (no (unknown) (unknown) and the incision (units (unknown) date) was extended unknown) transversely with blunt dissection. [] fluid was (unknown) (no (unknown) (unknown) and was bluntly (units (unknown) date) extended unknown) transversely. The muscles were bluntly split in the (unknown) (no (unknown) (unknown) anesthesia level (units (unknown) date) showed it to be unknown) inadequate. Patient felt sharp with testing (unknown) (no (unknown) (unknown) anesthesiologist (units (unknown) date) recommended unknown) converting to general anesthesia at this time, due (unknown) (no (unknown) (unknown) anterior (units (unkno wn) date) cul-de-sac was unknown) inspected and some clot was removed. The uterine (unknown) (no (unknown) (unknown) be normal. The (units (unknown) date) uterus was placed unknown) back into the maternal abdomen. The (unknown) (no (unknown) (unknown) blade retractor (units (unknown) date) was placed. A unknown) transverse incision was made in the lower uterus (unknown) (no (unknown) (unknown) blood was obtained (units (unknown) date) a specimen. The unknown) placenta was manually removed. It appeared (unknown) (no (unknown) (unknown) carried down to (units (unknown) date) the level of the unknown) fascia. The fascia was incised in the midline (unknown) (no (unknown) (unknown) closed in 2 layers (units (unknown) date) with 0 Vicryl, the unknown) 1st layer being in running locking (unknown) (no (unknown) (unknown) closed. The (units (un known) date) muscles were unknown) reapproximated with 2 interrupted sutures of 0 Vicryl. (unknown) (no (unknown) (unknown) clots and (units (unkn own) date) membranes. The unknown) uterus was brought through the abdominal incision and (unknown) (no (unknown) (unknown) continuous fashion (units (unknown) date) and the 2nd layer unknown) being in a vertical imbricating type (unknown) (no (unknown) (unknown) difficulty. The (units (unknown) date) infant cried unknown) spontaneously. Cord was clamped and cut and the (unknown) (no (unknown) (unknown) escorted out of the (units (unknown) date) room at this time unknown) due to proceeding with general anesthesia. (unknown) (no (unknown) (unknown) fashion. Hemostasis (units (unknown) date) was noted. The unknown) tubes and ovaries were inspected and noted to (unknown) (no (unknown) (unknown) incision was re- (units (unknown) date) inspected and good unknown) hemostasis was noted. The pelvis was (unknown) (no (unknown) (unknown) incision with some (units (unknown) date) minimal fundal unknown) pressure. Infant was in the [] position. (unknown) (no (unknown) (unknown) infant was handed (units (unknown) date) off to respiratory unknown) therapy who was present for delivery. Cord (unknown) (no (unknown) (unknown) intact with a (units ( unknown) date) normal three-vessel unknown) cord. The uterus was swept clean of adherent (unknown) (no (unknown) (unknown) irrigated. Repeat (units (unknown) date) inspection showed unknown) continued hemostasis. The abdomen was (unknown) (no (unknown) (unknown) lower uterus, (units ( unknown) date) incised and the unknown) bladder flap was bluntly created. The bladder (unknown) (no (unknown) (unknown) made to bolus her (units (unknown) date) epidural, but the unknown) level was inadequate. Epidural pulled and (unknown) (no (unknown) (unknown) midline. The (units (u nknown) date) parietal peritoneum unknown) was bluntly entered and extended bluntly. (unknown) (no (unknown) (unknown) noted. The head (units (unknown) date) was elevated to the unknown) uterine incision and delivered through the (unknown) (no (unknown) (unknown) paracolic gutters (units (unknown) date) were inspected and unknown) wiped of some minimal blood and fluid. The (unknown) (no (unknown) (unknown) postoperative, (units (unknown) date) care unknown) (unknown) (no (unknown) (unknown) recovery room in (units (unknown) date) stable condition. unknown) (unknown) (no (unknown) (unknown) specimens) (units (unk nown) date) unknown) (unknown) (no (unknown) (unknown) spinal anesthesia (units (unknown) date) placed by the unknown) anesthesiologist. She was then placed back in (unknown) (no (unknown) (unknown) the anesthesia, a (units (unknown) date) pfannenstiel skin unknown) incision was made in the lower abdomen and (unknown) (no (unknown) (unknown) the supine (units (unk nown) date) position and she unknown) was prepped and draped in routine sterile fashion. (unknown) (no (unknown) (unknown) to not being able (units (unknown) date) to obtain adequate unknown) regional anesthesia. Her was (unknown) (no (unknown) (unknown) was closed with a (units (unknown) date) subcuticular suture unknown) of 4 0 Monocryl. Steri-Strips and sterile (unknown) (no (unknown) (unknown) where the skin (units (unknown) date) incision would be unknown) made as well as her upper abdomen. The Result panel 375 (unknown) (no (unknown) (unknown) (no value) (units (unk nown) date) unknown) (unknown) (no (unknown) (unknown) [id number] (units (unkno wn) date) unknown) (unknown) (no (unknown) (unknown) 41 week , (units (unknown) date) induction of labor, unknown) intolerance of labor. (unknown) (no (unknown) (unknown) After recovered in (units (unknown) date) PACU, transferred unknown) to the birthing center for routine (unknown) (no (unknown) (unknown) Age/Sex: 27 / F (units (unknown) date) unknown) (unknown) (no (unknown) (unknown) Anesthesia Type: (units (unknown) date) General unknown) (unknown) (no (unknown) (unknown) Anterior and (units (u nknown) date) posterior shoulders unknown) followed by the body were delivered without (unknown) (no (unknown) (unknown) Aquacel dressing (units (unknown) date) was placed. She unknown) tolerated the procedure well and went to the (unknown) (no (unknown) (unknown) Systems Engineering Manager: (units (unk nown) date) Jeanne Garcia unknown) (unknown) (no (unknown) (unknown) Blood products (units (unknown) date) transfused: none unknown) (unknown) (no (unknown) (unknown) Closure Type: (units ( unknown) date) primary unknown) (unknown) (no (unknown) (unknown) Complications: (units (unknown) date) none unknown) (unknown) (no (unknown) (unknown) Condition: stable (units (unknown) date) unknown) (unknown) (no (unknown) (unknown) : 1995 (units (unknown) date) Acct:[id number] unknown) (unknown) (no (unknown) (unknown) Date of Service: (units (unknown) date) 07/07/22 unknown) (unknown) (no (unknown) (unknown) Date of procedure: (units (unknown) date) 07/09/22 unknown) (unknown) (no (unknown) (unknown) Description of (units (unknown) date) procedure: unknown) (unknown) (no (unknown) (unknown) Disposition: PACU (units (unknown) date) unknown) (unknown) (no (unknown) (unknown) Estimated Blood (units (unknown) date) Loss (mL): 300 unknown) (unknown) (no (unknown) (unknown) Findings: (units (unkn own) date) unknown) (unknown) (no (unknown) (unknown) Lorenzana catheter was (units (unknown) date) prevously placed in unknown) the birthing center. Testing of the (unknown) (no (unknown) (unknown) Indications: (units (u nknown) date) unknown) (unknown) (no (unknown) (unknown) Induction of (units (u nknown) date) general anesthesia unknown) was performed. Immediately after induction of (unknown) (no (unknown) (unknown) was vertex, (units (unknown) date) ROP position. No unknown) nuchal cord present. Baby girl delivered (unknown) (no (unknown) (unknown) [facility] (units (unknown) date) [address] unknown) [place] [address] (unknown) (no (unknown) (unknown) Normal appearing (units (unknown) date) maternal uterus and unknown) ovaries (unknown) (no (unknown) (unknown) Operative (units (unkn own) date) Date/Time/Diagnoses unknown) (unknown) (no (unknown) (unknown) Operative Note (units (unknown) date) unknown) (unknown) (no (unknown) (unknown) Operative Notes (units (unknown) date) unknown) (unknown) (no (unknown) (unknown) Patient: (units (unkno wn) date) Trini Lorenz MR#: unknown) M000 (unknown) (no (unknown) (unknown) Plan for (units (unkno wn) date) aftercare: unknown) (unknown) (no (unknown) (unknown) Post-op diagnosis: (units (unknown) date) same (With 0P unknown) position on delivery, macrosomic infant) (unknown) (no (unknown) (unknown) Post-operative (units (unknown) date) unknown) (unknown) (no (unknown) (unknown) Pre-op diagnosis: (units (unknown) date) 41 week , unknown) induction labor, intolerance of labor (unknown) (no (unknown) (unknown) Primary lower (units ( unknown) date) transverse unknown) section (unknown) (no (unknown) (unknown) Procedure + (units (un known) date) Clinicians unknown) (unknown) (no (unknown) (unknown) Procedure in (units (u nknown) date) detail: unknown) (unknown) (no (unknown) (unknown) Procedure: (units (unk nown) date) unknown) (unknown) (no (unknown) (unknown) Provider: (units (unkn own) date) Lynne Campuzano unknown) (unknown) (no (unknown) (unknown) Same procedure as (units (unknown) date) scheduled: Yes unknown) (unknown) (no (unknown) (unknown) She was (units (unkno wn) date) transferred from unknown) the center to the operating room. Attempt was (unknown) (no (unknown) (unknown) Signed By: (units (unk nown) date) unknown) (unknown) (no (unknown) (unknown) Specimen(s): other (units (unknown) date) (Cord blood to lab. unknown) Umbilical cord gases. No pathology (unknown) (no (unknown) (unknown) Surgeon: Lynne Grimm (units (unknown) date) Tatianna unknown) (unknown) (no (unknown) (unknown) The bladder blade (units (unknown) date) was placed. The unknown) visceral peritoneum was elevated off the (unknown) (no (unknown) (unknown) The fascia was (units (unknown) date) closed with running unknown) continuous suture of 0 Vicryl. The skin (unknown) (no (unknown) (unknown) Time of procedure: (units (unknown) date) 08:11 unknown) (unknown) (no (unknown) (unknown) Urine output: 300 (units (unknown) date) mL unknown) (unknown) (no (unknown) (unknown) and the incision (units (unknown) date) was extended unknown) transversely with blunt dissection. [] fluid was (unknown) (no (unknown) (unknown) and was bluntly (units (unknown) date) extended unknown) transversely. The muscles were bluntly in (unknown) (no (unknown) (unknown) anesthesia level (units (unknown) date) showed it to be unknown) inadequate. Patient felt sharp with testing (unknown) (no (unknown) (unknown) anesthesiologist (units (unknown) date) recommended unknown) converting to general anesthesia at this time, due (unknown) (no (unknown) (unknown) anterior (units (unkno wn) date) cul-de-sac was unknown) inspected and some clot was removed. The uterine (unknown) (no (unknown) (unknown) at 8:11 a.m, (units (u nknown) date) weighing 9 lb 11 oz unknown) with Apgars of 8 and 9 at 1 and 5 minutes (unknown) (no (unknown) (unknown) be normal. The (units (unknown) date) uterus was placed unknown) back into the maternal abdomen. The (unknown) (no (unknown) (unknown) blade retractor (units (unknown) date) was placed. A unknown) transverse incision was made in the lower uterus (unknown) (no (unknown) (unknown) blood was obtained (units (unknown) date) a specimen. The unknown) placenta was manually removed. It appeared (unknown) (no (unknown) (unknown) carried down to (units (unknown) date) the level of the unknown) fascia. The fascia was incised in the midline (unknown) (no (unknown) (unknown) closed in 2 layers (units (unknown) date) with 0 Vicryl, the unknown) 1st layer being in running locking (unknown) (no (unknown) (unknown) closed. The (units (un known) date) muscles were unknown) reapproximated with 2 interrupted sutures of 0 Vicryl. (unknown) (no (unknown) (unknown) clots and (units (unkn own) date) membranes. The unknown) uterus was brought through the abdominal incision and (unknown) (no (unknown) (unknown) continuous fashion (units (unknown) date) and the 2nd layer unknown) being in a vertical imbricating type (unknown) (no (unknown) (unknown) difficulty. The (units (unknown) date) cried unknown) spontaneously. Cord was clamped and cut and the (unknown) (no (unknown) (unknown) escorted out of the (units (unknown) date) room at this time unknown) due to proceeding with general anesthesia. (unknown) (no (unknown) (unknown) fashion. Hemostasis (units (unknown) date) was noted. The unknown) tubes and ovaries were inspected and noted to (unknown) (no (unknown) (unknown) incision was re- (units (unknown) date) inspected and good unknown) hemostasis was noted. The pelvis was (unknown) (no (unknown) (unknown) incision with some (units (unknown) date) minimal fundal unknown) pressure. Infant was in the [] position. (unknown) (no (unknown) (unknown) infant was handed (units (unknown) date) off to respiratory unknown) therapy who was present for delivery. Cord (unknown) (no (unknown) (unknown) intact with a (units ( unknown) date) normal three-vessel unknown) cord. The uterus was swept clean of adherent (unknown) (no (unknown) (unknown) irrigated. Repeat (units (unknown) date) inspection showed unknown) continued hemostasis. The abdomen was (unknown) (no (unknown) (unknown) lower uterus, (units ( unknown) date) incised and the unknown) bladder flap was bluntly created. The bladder (unknown) (no (unknown) (unknown) made to bolus her (units (unknown) date) epidural, but the unknown) level was inadequate. Epidural pulled and (unknown) (no (unknown) (unknown) noted. The head (units (unknown) date) was elevated to the unknown) uterine incision and delivered through the (unknown) (no (unknown) (unknown) paracolic gutters (units (unknown) date) were inspected and unknown) wiped of some minimal blood and fluid. The (unknown) (no (unknown) (unknown) postoperative, (units (unknown) date) care unknown) (unknown) (no (unknown) (unknown) recovery room in (units (unknown) date) stable condition. unknown) (unknown) (no (unknown) (unknown) respectively. (units ( unknown) date) Umbilical arterial unknown) cord gas 7.2 (unknown) (no (unknown) (unknown) specimens) (units (unk nown) date) unknown) (unknown) (no (unknown) (unknown) spinal anesthesia (units (unknown) date) placed by the unknown) anesthesiologist. She was then placed back in (unknown) (no (unknown) (unknown) the anesthesia, a (units (unknown) date) pfannenstiel skin unknown) incision was made in the lower abdomen and (unknown) (no (unknown) (unknown) the midline. The (units (unknown) date) parietal peritoneum unknown) was bluntly entered and extended bluntly. (unknown) (no (unknown) (unknown) the supine (units (unk nown) date) position and she unknown) was prepped and draped in routine sterile fashion. (unknown) (no (unknown) (unknown) to not being able (units (unknown) date) to obtain adequate unknown) regional anesthesia. Her was (unknown) (no (unknown) (unknown) was closed with a (units (unknown) date) subcuticular suture unknown) of 4 0 Monocryl. Steri-Strips and sterile (unknown) (no (unknown) (unknown) where the skin (units (unknown) date) incision would be unknown) made as well as her upper abdomen. The Result panel 376 (unknown) (no (unknown) (unknown) (no value) (units (unk nown) date) unknown) (unknown) (no (unknown) (unknown) 2nd layer being in (units (unknown) date) a vertical unknown) imbricating type fashion. Hemostasis was noted. (unknown) (no (unknown) (unknown) [id number] (units (unkno wn) date) unknown) (unknown) (no (unknown) (unknown) 41 week , (units (unknown) date) induction of labor, unknown) intolerance of labor. (unknown) (no (unknown) (unknown) After recovered in (units (unknown) date) PACU, transferred unknown) to the birthing center for routine (unknown) (no (unknown) (unknown) Age/Sex: 27 / F (units (unknown) date) unknown) (unknown) (no (unknown) (unknown) Anesthesia Type: (units (unknown) date) General unknown) (unknown) (no (unknown) (unknown) Anterior and (units (u nknown) date) posterior shoulders unknown) followed by the body were delivered without (unknown) (no (unknown) (unknown) Systems Engineering Manager: (units (unk nown) date) Jeanne Garcia unknown) (unknown) (no (unknown) (unknown) Blood products (units (unknown) date) transfused: none unknown) (unknown) (no (unknown) (unknown) Closure Type: (units ( unknown) date) primary unknown) (unknown) (no (unknown) (unknown) Complications: (units (unknown) date) none unknown) (unknown) (no (unknown) (unknown) Condition: stable (units (unknown) date) unknown) (unknown) (no (unknown) (unknown) : 1995 (units (unknown) date) Acct:[id number] unknown) (unknown) (no (unknown) (unknown) Date of Service: (units (unknown) date) 07/07/22 unknown) (unknown) (no (unknown) (unknown) Date of procedure: (units (unknown) date) 07/09/22 unknown) (unknown) (no (unknown) (unknown) Description of (units (unknown) date) procedure: unknown) (unknown) (no (unknown) (unknown) Disposition: PACU (units (unknown) date) unknown) (unknown) (no (unknown) (unknown) Estimated Blood (units (unknown) date) Loss (mL): 300 unknown) (unknown) (no (unknown) (unknown) Findings: (units (unkn own) date) unknown) (unknown) (no (unknown) (unknown) Lorenzana catheter was (units (unknown) date) prevously placed in unknown) the birthing center. Testing of the (unknown) (no (unknown) (unknown) Indications: (units (u nknown) date) unknown) (unknown) (no (unknown) (unknown) Induction of (units (u nknown) date) general anesthesia unknown) was performed. Immediately after induction of (unknown) (no (unknown) (unknown) was vertex, (units (unknown) date) ROP position. No unknown) nuchal cord present. Baby girl delivered (unknown) (no (unknown) (unknown) [facility] (units (unknown) date) [address] unknown) [place] [address] (unknown) (no (unknown) (unknown) Normal appearing (units (unknown) date) maternal uterus and unknown) ovaries (unknown) (no (unknown) (unknown) Operative (units (unkn own) date) Date/Time/Diagnoses unknown) (unknown) (no (unknown) (unknown) Operative Note (units (unknown) date) unknown) (unknown) (no (unknown) (unknown) Operative Notes (units (unknown) date) unknown) (unknown) (no (unknown) (unknown) Patient: (units (unkno wn) date) Trini Lorenz MR#: unknown) M000 (unknown) (no (unknown) (unknown) Plan for (units (unkno wn) date) aftercare: unknown) (unknown) (no (unknown) (unknown) Post-op diagnosis: (units (unknown) date) same (With 0P unknown) position on delivery, macrosomic infant) (unknown) (no (unknown) (unknown) Post-operative (units (unknown) date) unknown) (unknown) (no (unknown) (unknown) Pre-op diagnosis: (units (unknown) date) 41 week , unknown) induction labor, intolerance of labor (unknown) (no (unknown) (unknown) Primary lower (units ( unknown) date) transverse unknown) section (unknown) (no (unknown) (unknown) Procedure + (units (un known) date) Clinicians unknown) (unknown) (no (unknown) (unknown) Procedure in (units (u nknown) date) detail: unknown) (unknown) (no (unknown) (unknown) Procedure: (units (unk nown) date) unknown) (unknown) (no (unknown) (unknown) Provider: (units (unkn own) ) Lynne Campuzano unknown) (unknown) (no (unknown) (unknown) Same procedure as (units (unknown) date) scheduled: Yes unknown) (unknown) (no (unknown) (unknown) She was (units (o wn) date) transferred from unknown) the center to the operating room. Attempt was (unknown) (no (unknown) (unknown) Signed By: (units (unk nown) date) unknown) (unknown) (no (unknown) (unknown) Specimen(s): other (units (unknown) date) (Cord blood to lab. unknown) Umbilical cord gases. No pathology (unknown) (no (unknown) (unknown) Surgeon: Lynne Grimm (units (unknown) date) Tatianna unknown) (unknown) (no (unknown) (unknown) The bladder blade (units (unknown) date) retractor was unknown) placed. The visceral peritoneum was elevated (unknown) (no (unknown) (unknown) The bladder blade (units (unknown) date) retractor was unknown) re-positioned to protect the bladder. A (unknown) (no (unknown) (unknown) The tubes and (units ( unknown) date) ovaries were unknown) inspected and noted to be normal. The uterus was (unknown) (no (unknown) (unknown) The uterus was (units (unknown) date) brought through the unknown) abdominal incision and closed in 2 layers (unknown) (no (unknown) (unknown) Time of procedure: (units (unknown) date) 08:11 unknown) (unknown) (no (unknown) (unknown) Urine output: 300 (units (unknown) date) mL unknown) (unknown) (no (unknown) (unknown) and some clot was (units (unknown) date) removed. The unknown) uterine incision was re- inspected and good (unknown) (no (unknown) (unknown) and was bluntly (units (unknown) date) extended unknown) transversely. The muscles were bluntly in (unknown) (no (unknown) (unknown) anesthesia level (units (unknown) date) showed it to be unknown) inadequate. Patient felt sharp with testing (unknown) (no (unknown) (unknown) anesthesiologist (units (unknown) date) recommended unknown) converting to general anesthesia at this time, due (unknown) (no (unknown) (unknown) at 8:11 a.m, (units (u nknown) date) weighing 9 lb 11 oz unknown) with Apgars of 8 and 9 at 1 and 5 minutes (unknown) (no (unknown) (unknown) carried down to (units (unknown) date) the level of the unknown) fascia. The fascia was incised in the midline (unknown) (no (unknown) (unknown) continued (units (unkn own) date) hemostasis. The unknown) abdomen was closed. The muscles were reapproximated (unknown) (no (unknown) (unknown) continuous suture (units (unknown) date) of 0 Vicryl. The unknown) skin was closed with a subcuticular suture (unknown) (no (unknown) (unknown) difficulty with (units (unknown) date) fundal assistance. unknown) The cried spontaneously and with some (unknown) (no (unknown) (unknown) escorted out of the (units (unknown) date) room at this time unknown) due to proceeding with general anesthesia. (unknown) (no (unknown) (unknown) hemostasis was (units (unknown) date) noted. The pelvis unknown) was irrigated. Repeat inspection showed (unknown) (no (unknown) (unknown) incision was (units (u nknown) date) extended unknown) transversely with blunt dissection. Clear fluid was (unknown) (no (unknown) (unknown) made to bolus her (units (unknown) date) epidural, but the unknown) level was inadequate. Epidural pulled and (unknown) (no (unknown) (unknown) noted. The head (units (unknown) date) was not low and was unknown) elevated and delivered through the incision (unknown) (no (unknown) (unknown) of 4 0 Monocryl. (units (unknown) date) Steri-Strips and unknown) sterile Aquacel dressing was placed. She (unknown) (no (unknown) (unknown) off the lower (units ( unknown) date) uterus, incised and unknown) the bladder flap was bluntly created. (unknown) (no (unknown) (unknown) placed back into (units (unknown) date) the maternal unknown) abdomen. The paracolic gutters were inspected and (unknown) (no (unknown) (unknown) postoperative, (units (unknown) date) care unknown) (unknown) (no (unknown) (unknown) respectively. (units ( unknown) date) Umbilical arterial unknown) cord gas 7.2 (unknown) (no (unknown) (unknown) respiratory (units (un known) date) therapy who was unknown) present for delivery. Cord blood was obtained a (unknown) (no (unknown) (unknown) specimen. The (units ( unknown) date) placenta was unknown) manually removed. It appeared intact with a normal (unknown) (no (unknown) (unknown) specimens) (units (unk nown) date) unknown) (unknown) (no (unknown) (unknown) spinal anesthesia (units (unknown) date) placed by the unknown) anesthesiologist. She was then placed back in (unknown) (no (unknown) (unknown) stimulation. Cord (units (unknown) date) was clamped and cut unknown) and the was handed off to (unknown) (no (unknown) (unknown) the anesthesia, a (units (unknown) date) pfannenstiel skin unknown) incision was made in the lower abdomen and (unknown) (no (unknown) (unknown) the midline. The (units (unknown) date) parietal peritoneum unknown) was bluntly entered and extended bluntly. (unknown) (no (unknown) (unknown) the supine (units (unk nown) date) position and she unknown) was prepped and draped in routine sterile fashion. (unknown) (no (unknown) (unknown) three-vessel cord. (units (unknown) date) The uterus was unknown) swept clean of adherent clots and membranes. (unknown) (no (unknown) (unknown) to not being able (units (unknown) date) to obtain adequate unknown) regional anesthesia. Her was (unknown) (no (unknown) (unknown) tolerated the (units ( unknown) date) procedure well and unknown) went to the recovery room in stable condition. (unknown) (no (unknown) (unknown) transverse incision (units (unknown) date) was made in the unknown) lower uterus, the uterus was entered and the (unknown) (no (unknown) (unknown) where the skin (units (unknown) date) incision would be unknown) made as well as her upper abdomen. The (unknown) (no (unknown) (unknown) wiped of some (units ( unknown) date) minimal blood and unknown) fluid. The anterior cul-de-sac was inspected (unknown) (no (unknown) (unknown) with 0 Vicryl, the (units (unknown) date) 1st layer being in unknown) running locking continuous fashion and the (unknown) (no (unknown) (unknown) with 2 interrupted (units (unknown) date) sutures of 0 unknown) Vicryl. The fascia was closed with running (unknown) (no (unknown) (unknown) with ease with (units (unknown) date) some minimal fundal unknown) pressure. Infant was in the ROP position. Result panel 377 (unknown) (no (unknown) (unknown) (no value) (units (unk nown) date) unknown) (unknown) (no (unknown) (unknown) [id number] (units (unkno wn) date) unknown) (unknown) (no (unknown) (unknown) 41 week , (units (unknown) date) induction of labor, unknown) intolerance of labor. (unknown) (no (unknown) (unknown) A portion of (units (u nknown) date) umbilical cord was unknown) clamped off, cut and handed off for umbilical (unknown) (no (unknown) (unknown) After recovered in (units (unknown) date) PACU, transferred unknown) to the birthing center for routine (unknown) (no (unknown) (unknown) Age/Sex: 27 / F (units (unknown) date) unknown) (unknown) (no (unknown) (unknown) Anesthesia Type: (units (unknown) date) General unknown) (unknown) (no (unknown) (unknown) Anterior and (units (u nknown) date) posterior shoulders unknown) followed by the body were delivered without (unknown) (no (unknown) (unknown) Systems Engineering Manager: (units (unk nown) date) Jeanne Garcia unknown) (unknown) (no (unknown) (unknown) Blood products (units (unknown) date) transfused: none unknown) (unknown) (no (unknown) (unknown) Closure Type: (units ( unknown) date) primary unknown) (unknown) (no (unknown) (unknown) Complications: (units (unknown) date) none unknown) (unknown) (no (unknown) (unknown) Condition: stable (units (unknown) date) unknown) (unknown) (no (unknown) (unknown) : 1995 (units (unknown) date) Acct:[id number] unknown) (unknown) (no (unknown) (unknown) Date of Service: (units (unknown) date) 07/07/22 unknown) (unknown) (no (unknown) (unknown) Date of procedure: (units (unknown) date) 07/09/22 unknown) (unknown) (no (unknown) (unknown) Description of (units (unknown) date) procedure: unknown) (unknown) (no (unknown) (unknown) Disposition: PACU (units (unknown) date) unknown) (unknown) (no (unknown) (unknown) Estimated Blood (units (unknown) date) Loss (mL): 300 unknown) (unknown) (no (unknown) (unknown) Findings: (units (unkn own) date) unknown) (unknown) (no (unknown) (unknown) Lorenzana catheter was (units (unknown) date) prevously placed in unknown) the [facility] [place]. Testing of the (unknown) (no (unknown) (unknown) Indications: (units (u nknown) date) unknown) (unknown) (no (unknown) (unknown) Induction of (units (u nknown) date) general anesthesia unknown) was performed. Immediately after induction of (unknown) (no (unknown) (unknown) was vertex, (units (unknown) date) ROP position. No unknown) nuchal cord present. Baby girl delivered (unknown) (no (unknown) (unknown) [facility] (units (unknown) date) [address] unknown) [place] [address] (unknown) (no (unknown) (unknown) Monocryl. (units (unkn own) date) Steri-Strips and unknown) sterile Aquacel dressing was placed. She tolerated (unknown) (no (unknown) (unknown) Normal appearing (units (unknown) date) maternal uterus and unknown) ovaries (unknown) (no (unknown) (unknown) Operative (units (unkn own) date) Date/Time/Diagnoses unknown) (unknown) (no (unknown) (unknown) Operative Note (units (unknown) date) unknown) (unknown) (no (unknown) (unknown) Operative Notes (units (unknown) date) unknown) (unknown) (no (unknown) (unknown) Patient: (units (unkno wn) date) Trini Lorenz MR#: unknown) M000 (unknown) (no (unknown) (unknown) Plan for (units (unkno wn) date) aftercare: unknown) (unknown) (no (unknown) (unknown) Post-op diagnosis: (units (unknown) date) same (With 0P unknown) position on delivery, macrosomic ) (unknown) (no (unknown) (unknown) Post-operative (units (unknown) date) unknown) (unknown) (no (unknown) (unknown) Pre-op diagnosis: (units (unknown) date) 41 week , unknown) induction labor, intolerance of labor (unknown) (no (unknown) (unknown) Primary lower (units ( unknown) date) transverse unknown) section (unknown) (no (unknown) (unknown) Procedure + (units (un known) date) Clinicians unknown) (unknown) (no (unknown) (unknown) Procedure in (units (u nknown) date) detail: unknown) (unknown) (no (unknown) (unknown) Procedure: (units (unk nown) date) unknown) (unknown) (no (unknown) (unknown) Provider: (units (unkn own) date) Lynne Campuzano unknown) (unknown) (no (unknown) (unknown) Same procedure as (units (unknown) date) scheduled: Yes unknown) (unknown) (no (unknown) (unknown) She was (units (unkno wn) date) transferred from unknown) the center to the operating room. Attempt was (unknown) (no (unknown) (unknown) Signed By: (units (unk nown) date) unknown) (unknown) (no (unknown) (unknown) Specimen(s): other (units (unknown) date) (Cord blood to lab. unknown) Umbilical cord gases. No pathology (unknown) (no (unknown) (unknown) Surgeon: Lynne Grimm (units (unknown) date) Tatianna unknown) (unknown) (no (unknown) (unknown) The bladder blade (units (unknown) date) retractor was unknown) placed. The visceral peritoneum was elevated (unknown) (no (unknown) (unknown) The bladder blade (units (unknown) date) retractor was unknown) re-positioned to protect the bladder. A (unknown) (no (unknown) (unknown) Time of procedure: (units (unknown) date) 08:11 unknown) (unknown) (no (unknown) (unknown) Urine output: 300 (units (unknown) date) mL unknown) (unknown) (no (unknown) (unknown) and was bluntly (units (unknown) date) extended unknown) transversely. The muscles were bluntly in (unknown) (no (unknown) (unknown) anesthesia level (units (unknown) date) showed it to be unknown) inadequate. Patient felt sharp with testing (unknown) (no (unknown) (unknown) anesthesiologist (units (unknown) date) recommended unknown) converting to general anesthesia at this time, due (unknown) (no (unknown) (unknown) at 8:11 a.m, (units (u nknown) date) weighing 9 lb 11 oz unknown) with Apgars of 8 and 9 at 1 and 5 minutes (unknown) (no (unknown) (unknown) carried down to (units (unknown) date) the level of the unknown) fascia. The fascia was incised in the midline (unknown) (no (unknown) (unknown) cord gases. (units (un known) date) Routine cord blood unknown) was then obtained a specimen. The placenta was (unknown) (no (unknown) (unknown) difficulty with (units (unknown) date) fundal assistance. unknown) The infant cried spontaneously and with some (unknown) (no (unknown) (unknown) escorted out of the (units (unknown) date) room at this time unknown) due to proceeding with general anesthesia. (unknown) (no (unknown) (unknown) hemostasis. The (units (unknown) date) abdomen was closed. unknown) The muscles were reapproximated with 2 (unknown) (no (unknown) (unknown) incision was (units (u nknown) date) extended unknown) transversely with blunt dissection. Clear fluid was (unknown) (no (unknown) (unknown) interrupted (units (un known) date) sutures of 0 unknown) Vicryl. The fascia was closed with running continuous (unknown) (no (unknown) (unknown) layer being in (units (unknown) date) running locking unknown) continuous fashion and the 2nd layer being in a (unknown) (no (unknown) (unknown) made to bolus her (units (unknown) date) epidural, but the unknown) level was inadequate. Epidural pulled and (unknown) (no (unknown) (unknown) manually removed. (units (unknown) date) It appeared intact unknown) with a normal three-vessel cord. The (unknown) (no (unknown) (unknown) maternal abdomen. (units (unknown) date) The paracolic unknown) gutters were inspected and wiped of some (unknown) (no (unknown) (unknown) minimal blood and (units (unknown) date) fluid. The anterior unknown) cul-de-sac was inspected and some clot (unknown) (no (unknown) (unknown) noted. The head (units (unknown) date) was not low and was unknown) elevated and delivered through the incision (unknown) (no (unknown) (unknown) noted. The pelvis (units (unknown) date) was irrigated. unknown) Repeat inspection showed continued (unknown) (no (unknown) (unknown) off the lower (units ( unknown) date) uterus, incised and unknown) the bladder flap was bluntly created. (unknown) (no (unknown) (unknown) postoperative, (units (unknown) date) care unknown) (unknown) (no (unknown) (unknown) respectively. (units ( unknown) date) Umbilical arterial unknown) cord gas 7.2 (unknown) (no (unknown) (unknown) specimens) (units (unk nown) date) unknown) (unknown) (no (unknown) (unknown) spinal anesthesia (units (unknown) date) placed by the unknown) anesthesiologist. She was then placed back in (unknown) (no (unknown) (unknown) stimulation became (units (unknown) date) vigorous. After 1 unknown) minute the Cord was clamped and cut and (unknown) (no (unknown) (unknown) suture of 0 (units (un known) date) Vicryl. The skin unknown) was closed with a subcuticular suture of 4 0 (unknown) (no (unknown) (unknown) the anesthesia, a (units (unknown) date) pfannenstiel skin unknown) incision was made in the lower abdomen and (unknown) (no (unknown) (unknown) the was (units (unknown) date) handed off to unknown) respiratory therapy who was present for delivery. (unknown) (no (unknown) (unknown) the midline. The (units (unknown) date) parietal peritoneum unknown) was bluntly entered and extended bluntly. (unknown) (no (unknown) (unknown) the procedure well (units (unknown) date) and went to the unknown) recovery room in stable condition. (unknown) (no (unknown) (unknown) the supine (units (unk nown) date) position and she unknown) was prepped and draped in routine sterile fashion. (unknown) (no (unknown) (unknown) through the (units (un known) date) abdominal incision unknown) and closed in 2 layers with 0 Vicryl, the 1st (unknown) (no (unknown) (unknown) to not being able (units (unknown) date) to obtain adequate unknown) regional anesthesia. Her was (unknown) (no (unknown) (unknown) transverse incision (units (unknown) date) was made in the unknown) lower uterus, the uterus was entered and the (unknown) (no (unknown) (unknown) uterus was swept (units (unknown) date) clean of adherent unknown) clots and membranes. The uterus was brought (unknown) (no (unknown) (unknown) vertical (units (unkno wn) date) imbricating type unknown) fashion. Hemostasis was noted. The tubes and ovaries (unknown) (no (unknown) (unknown) was removed. The (units (unknown) date) uterine incision unknown) was re- inspected and good hemostasis was (unknown) (no (unknown) (unknown) were inspected and (units (unknown) date) noted to be normal. unknown) The uterus was placed back into the (unknown) (no (unknown) (unknown) where the skin (units (unknown) date) incision would be unknown) made as well as her upper abdomen. The (unknown) (no (unknown) (unknown) with ease with (units (unknown) date) some minimal fundal unknown) pressure. was in the ROP position. Result panel [id number] (unknown) (no (unknown) (unknown) (no value) (units (unk nown) date) unknown) (unknown) (no (unknown) (unknown) 07/09/22 1100 (units ( unknown) date) unknown) (unknown) (no (unknown) (unknown) [id number] (units (unkno wn) date) unknown) (unknown) (no (unknown) (unknown) 41 week , (units (unknown) date) induction of labor, unknown) intolerance of labor. (unknown) (no (unknown) (unknown) A portion of (units (u nknown) date) umbilical cord was unknown) clamped off, cut and handed off for umbilical (unknown) (no (unknown) (unknown) After recovered in (units (unknown) date) PACU, Trini was unknown) transferred to the birthing center for (unknown) (no (unknown) (unknown) Age/Sex: 27 / F (units (unknown) date) unknown) (unknown) (no (unknown) (unknown) Anesthesia Type: (units (unknown) date) General unknown) (unknown) (no (unknown) (unknown) Anterior and (units (u nknown) date) posterior shoulders unknown) followed by the body were delivered without (unknown) (no (unknown) (unknown) Systems Engineering Manager: (units (unk nown) date) Jeanne Garcia unknown) (unknown) (no (unknown) (unknown) Blood products (units (unknown) date) transfused: none unknown) (unknown) (no (unknown) (unknown) Closure Type: (units ( unknown) date) primary unknown) (unknown) (no (unknown) (unknown) Complications: (units (unknown) date) none unknown) (unknown) (no (unknown) (unknown) Condition: stable (units (unknown) date) unknown) (unknown) (no (unknown) (unknown) : 1995 (units (unknown) date) Acct:[id number] unknown) (unknown) (no (unknown) (unknown) Date of Service: (units (unknown) date) 07/07/22 unknown) (unknown) (no (unknown) (unknown) Date of procedure: (units (unknown) date) 07/09/22 unknown) (unknown) (no (unknown) (unknown) Description of (units (unknown) date) procedure: unknown) (unknown) (no (unknown) (unknown) Disposition: PACU (units (unknown) date) unknown) (unknown) (no (unknown) (unknown) Estimated Blood (units (unknown) date) Loss (mL): 300 unknown) (unknown) (no (unknown) (unknown) Findings: (units (unkn own) date) unknown) (unknown) (no (unknown) (unknown) Lorenzana catheter was (units (unknown) date) prevously placed in unknown) the birthing center. Testing of the (unknown) (no (unknown) (unknown) Indications: (units (u nknown) date) unknown) (unknown) (no (unknown) (unknown) Induction of (units (u nknown) date) general anesthesia unknown) was performed. Immediately after induction of (unknown) (no (unknown) (unknown) was vertex, (units (unknown) date) ROP position. No unknown) nuchal cord present. Baby girl delivered (unknown) (no (unknown) (unknown) [facility] (units (unknown) date) [address] unknown) [place] [address] (unknown) (no (unknown) (unknown) Normal appearing (units (unknown) date) maternal uterus and unknown) ovaries (unknown) (no (unknown) (unknown) Operative (units (unkn own) date) Date/Time/Diagnoses unknown) (unknown) (no (unknown) (unknown) Operative Note (units (unknown) date) unknown) (unknown) (no (unknown) (unknown) Operative Notes (units (unknown) date) unknown) (unknown) (no (unknown) (unknown) Patient: (units (unkno wn) date) Trini Lorenz MR#: unknown) M000 (unknown) (no (unknown) (unknown) Plan for (units (unkno wn) date) aftercare: unknown) (unknown) (no (unknown) (unknown) Post-op diagnosis: (units (unknown) date) same (With 0P unknown) position on delivery, macrosomic infant) (unknown) (no (unknown) (unknown) Post-operative (units (unknown) date) unknown) (unknown) (no (unknown) (unknown) Posterior to the (units (unknown) date) uterus was suction unknown) of some fluid and blood. The uterus was (unknown) (no (unknown) (unknown) Pre-op diagnosis: (units (unknown) date) 41 week , unknown) induction labor, intolerance of labor (unknown) (no (unknown) (unknown) Primary lower (units ( unknown) date) transverse unknown) section (unknown) (no (unknown) (unknown) Procedure + (units (un known) date) Clinicians unknown) (unknown) (no (unknown) (unknown) Procedure in (units (u nknown) date) detail: unknown) (unknown) (no (unknown) (unknown) Procedure: (units (unk nown) date) unknown) (unknown) (no (unknown) (unknown) Provider: (units (unkn own) date) Lynne Campuzano unknown) (unknown) (no (unknown) (unknown) Same procedure as (units (unknown) date) scheduled: Yes unknown) (unknown) (no (unknown) (unknown) She was (units (unkno wn) date) transferred from unknown) the center to the operating room. Attempt was (unknown) (no (unknown) (unknown) Signed (units (unkno wn) date) By:<Electronically unknown) signed by Lynne Campuzano MD> (unknown) (no (unknown) (unknown) Specimen(s): other (units (unknown) date) (Cord blood to lab. unknown) Umbilical cord gases. No pathology (unknown) (no (unknown) (unknown) Surgeon: Ute (units (unknown) date) Hendrzak unknown) (unknown) (no (unknown) (unknown) The bladder blade (units (unknown) date) retractor was unknown) placed. The visceral peritoneum was elevated (unknown) (no (unknown) (unknown) The bladder blade (units (unknown) date) retractor was unknown) re-positioned to protect the bladder. A (unknown) (no (unknown) (unknown) Time of procedure: (units (unknown) date) 08:11 unknown) (unknown) (no (unknown) (unknown) Urine output: 300 (units (unknown) date) mL unknown) (unknown) (no (unknown) (unknown) Vicryl, the 1st (units (unknown) date) layer being in unknown) running locking continuous fashion and the 2nd (unknown) (no (unknown) (unknown) and some clot was (units (unknown) date) removed. The pelvis unknown) was irrigated. The uterine incision was (unknown) (no (unknown) (unknown) and was bluntly (units (unknown) date) extended unknown) transversely. The muscles were bluntly in (unknown) (no (unknown) (unknown) anesthesia level (units (unknown) date) showed it to be unknown) inadequate. Patient felt sharp with testing (unknown) (no (unknown) (unknown) anesthesiologist (units (unknown) date) recommended unknown) converting to general anesthesia at this time, due (unknown) (no (unknown) (unknown) at 8:11 a.m, (units (u nknown) date) weighing 9 lb 11 oz unknown) with Apgars of 8 and 9 at 1 and 5 minutes (unknown) (no (unknown) (unknown) carried down to (units (unknown) date) the level of the unknown) fascia. The fascia was incised in the midline (unknown) (no (unknown) (unknown) cord gases. (units (un known) date) Routine cord blood unknown) was then obtained a specimen. The placenta did (unknown) (no (unknown) (unknown) difficulty with (units (unknown) date) fundal assistance. unknown) The infant cried spontaneously and with some (unknown) (no (unknown) (unknown) escorted out of the (units (unknown) date) room at this time unknown) due to proceeding with general anesthesia. (unknown) (no (unknown) (unknown) incision was (units (u nknown) date) extended unknown) transversely with blunt dissection. Clear fluid was (unknown) (no (unknown) (unknown) layer being in a (units (unknown) date) vertical unknown) imbricating type fashion. Hemostasis was noted along (unknown) (no (unknown) (unknown) made to bolus her (units (unknown) date) epidural, but the unknown) level was inadequate. Epidural pulled and (unknown) (no (unknown) (unknown) muscles were (units (u nknown) date) reapproximated with unknown) 2 interrupted sutures of 0 Vicryl. The fascia (unknown) (no (unknown) (unknown) not comes (units (unkn own) date) spontaneously with unknown) massage and cord traction, thus was manually (unknown) (no (unknown) (unknown) noted. The head (units (unknown) date) was not low and was unknown) elevated and delivered through the incision (unknown) (no (unknown) (unknown) off the lower (units ( unknown) date) uterus, incised and unknown) the bladder flap was bluntly created. (unknown) (no (unknown) (unknown) parietal peritoneal (units (unknown) date) edges were in close unknown) approximation, and were not sutured. The (unknown) (no (unknown) (unknown) placed back into (units (unknown) date) the maternal unknown) abdomen. The paracolic gutters were inspected and (unknown) (no (unknown) (unknown) re-inspected and (units (unknown) date) good hemostasis was unknown) noted. The abdomen was closed. The (unknown) (no (unknown) (unknown) removed, Posterior (units (unknown) date) placenta noted. It unknown) appeared intact with a normal three (unknown) (no (unknown) (unknown) respectively. (units ( unknown) date) Umbilical arterial unknown) cord gas 7.2 (unknown) (no (unknown) (unknown) routine post C (units (unknown) date) section, unknown) care (unknown) (no (unknown) (unknown) specimens) (units (unk nown) date) unknown) (unknown) (no (unknown) (unknown) spinal anesthesia (units (unknown) date) placed by the unknown) anesthesiologist. She was then placed back in (unknown) (no (unknown) (unknown) stable condition. (units (unknown) date) unknown) (unknown) (no (unknown) (unknown) stimulation became (units (unknown) date) vigorous. After 1 unknown) minute the Cord was clamped and cut and (unknown) (no (unknown) (unknown) the anesthesia, a (units (unknown) date) pfannenstiel skin unknown) incision was made in the lower abdomen and (unknown) (no (unknown) (unknown) the incision. The (units (unknown) date) tubes and ovaries unknown) were inspected and noted to be normal. (unknown) (no (unknown) (unknown) the infant was (units (unknown) date) handed off to unknown) respiratory therapy who was present for delivery. (unknown) (no (unknown) (unknown) the midline. The (units (unknown) date) parietal peritoneum unknown) was bluntly entered and extended bluntly. (unknown) (no (unknown) (unknown) the supine (units (unk nown) date) position and she unknown) was prepped and draped in routine sterile fashion. (unknown) (no (unknown) (unknown) to not being able (units (unknown) date) to obtain adequate unknown) regional anesthesia. Her was (unknown) (no (unknown) (unknown) transverse incision (units (unknown) date) was made in the unknown) lower uterus, the uterus was entered and the (unknown) (no (unknown) (unknown) uterus was brought (units (unknown) date) through the unknown) abdominal incision and closed in 2 layers with 0 (unknown) (no (unknown) (unknown) vessel cord. The (units (unknown) date) uterus was swept unknown) clean of adherent clots and membranes. The (unknown) (no (unknown) (unknown) was closed with a (units (unknown) date) subcuticular suture unknown) of 4 0 Monocryl. Sterile Aquacel dressing (unknown) (no (unknown) (unknown) was closed with (units (unknown) date) running continuous unknown) suture of 0 Vicryl. The subcutaneous layer (unknown) (no (unknown) (unknown) was placed. She (units (unknown) date) tolerated the unknown) procedure well and went to the recovery room in (unknown) (no (unknown) (unknown) was reapproximated (units (unknown) date) by reapproximating unknown) Nai's fascia with #2 Vicryl. The skin (unknown) (no (unknown) (unknown) where the skin (units (unknown) date) incision would be unknown) made as well as her upper abdomen. The (unknown) (no (unknown) (unknown) wiped of some (units ( unknown) date) minimal blood and unknown) fluid. The anterior cul-de-sac was inspected (unknown) (no (unknown) (unknown) with ease with (units (unknown) date) some minimal fundal unknown) pressure. was in the ROP position. Result panel [id number] (unknown) (no (unknown) (unknown) (no value) (units (unk nown) date) unknown) (unknown) (no (unknown) (unknown) (past 8 hours): (units (unknown) date) unknown) (unknown) (no (unknown) (unknown) 09:22 07/09/22 (units (unknown) date) unknown) (unknown) (no (unknown) (unknown) 09:27 (units (unkno wn) date) unknown) (unknown) (no (unknown) (unknown) 09:33 07/09/22 (units (unknown) date) unknown) (unknown) (no (unknown) (unknown) 09:42 (units (unkno wn) date) unknown) (unknown) (no (unknown) (unknown) 07/07/22 19:40 (units (unknown) date) unknown) (unknown) (no (unknown) (unknown) 07/09/22 1140 (units ( unknown) date) unknown) (unknown) (no (unknown) (unknown) 07/09/22 (units (unkno wn) date) unknown) (unknown) (no (unknown) (unknown) [id number] (units (unkno wn) date) unknown) (unknown) (no (unknown) (unknown) Age/Sex: 27 / F (units (unknown) date) unknown) (unknown) (no (unknown) (unknown) Blood Pressure (units (unknown) date) 119/66 unknown) (unknown) (no (unknown) (unknown) Blood Pressure (units (unknown) date) 127/74 122/74 unknown) 110/68 (unknown) (no (unknown) (unknown) Comments: (units (unkn own) date) unknown) (unknown) (no (unknown) (unknown) : 1995 (units (unknown) date) Acct:[id number] unknown) (unknown) (no (unknown) (unknown) Date Patient (units (u nknown) date) Seen: 07/09/22 unknown) (unknown) (no (unknown) (unknown) Date of (units (unkno wn) date) Service: unknown) 07/07/22 (unknown) (no (unknown) (unknown) Exam Narrative: (units (unknown) date) unknown) (unknown) (no (unknown) (unknown) Exam (units (unkno wn) date) unknown) (unknown) (no (unknown) (unknown) Fundus firm, no (units (unknown) date) blood through unknown) vagina with fundal pressure now. (unknown) (no (unknown) (unknown) Glucose) (units (unkno wn) date) unknown) (unknown) (no (unknown) (unknown) IV discovered (units ( unknown) date) not to be unknown) running well, tubing fixed. Pitocin restarted. TXA 1g (unknown) (no (unknown) (unknown) IV x1 being (units (un known) date) given now. unknown) (unknown) (no (unknown) (unknown) In PACU patient (units (unknown) date) has soaked a unknown) Chux and large amount on her pad. Here in (unknown) (no (unknown) (unknown) [facility] (units (unknown) date) [address] [place] [address] Street unknown) [place] [address] (unknown) (no (unknown) (unknown) Labs (units (unkno wn) date) unknown) (unknown) (no (unknown) (unknown) Methergine 0.2 (units (unknown) date) mg IM x1 given. unknown) Misoprostol 400 mcg buccal given. (unknown) (no (unknown) (unknown) Narrative (units (unkn own) date) unknown) (unknown) (no (unknown) (unknown) Narrative: (units (unk nown) date) unknown) (unknown) (no (unknown) (unknown) baby (units (u nknown) date) status: doing unknown) well, nursing well and other (supplementing for low (unknown) (no (unknown) (unknown) VEGETABLE GRADER Progress (units (unknown) date) Note unknown) (unknown) (no (unknown) (unknown) Objective (units (unkn own) date) unknown) (unknown) (no (unknown) (unknown) Observe (units (unkno wn) date) bleeding unknown) (unknown) (no (unknown) (unknown) Oxygen Delivery (units (unknown) date) Method Room Air unknown) (unknown) (no (unknown) (unknown) Oxygen Delivery (units (unknown) date) Method Simple unknown) Mask Room Air Room Air (unknown) (no (unknown) (unknown) Oxygen Flow (units (un known) date) Rate 10 unknown) (unknown) (no (unknown) (unknown) Oxygen Flow (units (un known) date) Rate unknown) (unknown) (no (unknown) (unknown) Patient (units (unkno wn) date) comments: unknown) incisional pain (moderate) (unknown) (no (unknown) (unknown) Patient: (units (unkno wn) date) Trini Lorenz unknown) MR#: [id number] (unknown) (no (unknown) (unknown) Plan: (units (unkno wn) date) unknown) (unknown) (no (unknown) (unknown) (units (unk nown) date) Assessment + unknown) Plan (unknown) (no (unknown) (unknown) Plan (units (unknown) date) unknown) (unknown) (no (unknown) (unknown) day: (units (unknown) date) 0 unknown) (unknown) (no (unknown) (unknown) plan (units (unknown) date) OB: other unknown) (unknown) (no (unknown) (unknown) Provider: (units (unkn own) date) Lynne Campuzano unknown) Sirisha WYLIE (unknown) (no (unknown) (unknown) Pulse Oximetry (units (unknown) date) 100 100 100 unknown) (unknown) (no (unknown) (unknown) Pulse Oximetry (units (unknown) date) 100 unknown) (unknown) (no (unknown) (unknown) Pulse Rate 87 (units ( unknown) date) unknown) (unknown) (no (unknown) (unknown) Pulse Rate 99 H (units (unknown) date) 101 H 78 unknown) (unknown) (no (unknown) (unknown) Respiratory (units (un known) date) Rate 14 20 20 unknown) (unknown) (no (unknown) (unknown) Respiratory (units (un known) date) Rate 22 unknown) (unknown) (no (unknown) (unknown) Result (units (unkno wn) date) Diagrams: unknown) (unknown) (no (unknown) (unknown) Signed (units (unkno wn) date) By:<Electronical unknown) ly signed by Lynne Campuzano MD> (unknown) (no (unknown) (unknown) Subjective - OB (units (unknown) date) unknown) (unknown) (no (unknown) (unknown) Subjective (units (unk nown) date) unknown) (unknown) (no (unknown) (unknown) Temperature (units (un known) date) 97.1 F L 97.9 F unknown) (unknown) (no (unknown) (unknown) Temperature (units (un known) date) unknown) (unknown) (no (unknown) (unknown) Time Patient (units (u nknown) date) Seen: 11:00 unknown) (unknown) (no (unknown) (unknown) Time Spent With (units (unknown) date) Patient unknown) (unknown) (no (unknown) (unknown) Time with (units (unkn own) date) patient: 15-24 unknown) minutes (unknown) (no (unknown) (unknown) Time: (units (unkno wn) date) unknown) (unknown) (no (unknown) (unknown) Total time (units (unk nown) date) spent is greater unknown) than 50% in coordination of care (as documented) at (unknown) (no (unknown) (unknown) Uterus had been (units (unknown) date) firm during unknown) , and bleeding normal. In PACU she did (unknown) (no (unknown) (unknown) Vital Signs (units (un known) date) unknown) (unknown) (no (unknown) (unknown) [Embedded Image (units (unknown) date) Not Available] unknown) (unknown) (no (unknown) (unknown) active blood (units (u nknown) date) then obtained unknown) with uterine pressure. However in birthing center (unknown) (no (unknown) (unknown) birthing center (units (unknown) date) she had large unknown) amount on her pad and soaked a 2nd Chux which was (unknown) (no (unknown) (unknown) few hours (units (unkn own) date) post-op unknown) (unknown) (no (unknown) (unknown) just changed. (units ( unknown) date) unknown) (unknown) (no (unknown) (unknown) minutes. (units (unkno wn) date) unknown) (unknown) (no (unknown) (unknown) patient had (units (un known) date) general unknown) anesthesia for her . Now postop about 90 (unknown) (no (unknown) (unknown) patient's (units (unkn own) date) floor/unit unknown) and/or counseling patient: (unknown) (no (unknown) (unknown) she did have a (units (unknown) date) 2nd episode of a unknown) lot on her peripad and filling large amount on (unknown) (no (unknown) (unknown) soak her pad (units (u nknown) date) and had a fairly unknown) full Chux pad. On exam uterus firm and no (unknown) (no (unknown) (unknown) the Chux pad. (units ( unknown) date) Uterus still at unknown) U -1, firm. Result panel 380 (unknown) (no date) (unknown) (unknown) 0 /ul (unkn own) (unknown) (no date) (unknown) (unknown) 0 /ul (unkn own) (unknown) (no date) (unknown) (unknown) 0.0 % (unkn own) (unknown) (no date) (unknown) (unknown) 0.1 % (unkn own) (unknown) (no date) (unknown) (unknown) 10.7 % (unkn own) (unknown) (no date) (unknown) (unknown) 12.9 x10 3/ul (unkn own) (unknown) (no date) (unknown) (unknown) 14.4 % (unkn own) (unknown) (no date) (unknown) (unknown) 1400 /ul (unkn own) (unknown) (no date) (unknown) (unknown) 17.8 % (unkn own) (unknown) (no date) (unknown) (unknown) 2.55 x10 6/ul (unkn own) (unknown) (no date) (unknown) (unknown) 21.9 % (unkn own) (unknown) (no date) (unknown) (unknown) 2300 /ul (unkn own) (unknown) (no date) (unknown) (unknown) 231 x10 3/ul (unkn own) (unknown) (no date) (unknown) (unknown) 28.1 pg (unkn own) (unknown) (no date) (unknown) (unknown) 32.8 % (unkn own) (unknown) (no date) (unknown) (unknown) 7.2 g/dl (unkn own) (unknown) (no date) (unknown) (unknown) 71.4 % (unkn own) (unknown) (no date) (unknown) (unknown) 85.8 fl (unkn own) (unknown) (no date) (unknown) (unknown) 9200 /ul (unkn own) Result panel 381 (unknown) (no (unknown) (unknown) (no value) (units (unk nown) date) unknown) (unknown) (no (unknown) (unknown) (past 8 hours): (units (unknown) date) unknown) (unknown) (no (unknown) (unknown) 06:41 (units (unkno wn) date) unknown) (unknown) (no (unknown) (unknown) 07/10/22 06:41 (units (unknown) date) unknown) (unknown) (no (unknown) (unknown) 07/10/22 (units (unkno wn) date) unknown) (unknown) (no (unknown) (unknown) [id number] (units (unkno wn) date) unknown) (unknown) (no (unknown) (unknown) Age/Sex: 27 / F (units (unknown) date) unknown) (unknown) (no (unknown) (unknown) Baso # (Auto) 0 (units (unknown) date) unknown) (unknown) (no (unknown) (unknown) Baso % (Auto) (units ( unknown) date) 0.1 unknown) (unknown) (no (unknown) (unknown) : 1995 (units (unknown) date) Acct:[id number] unknown) (unknown) (no (unknown) (unknown) Date of (units (unkno wn) date) Service: unknown) 07/07/22 (unknown) (no (unknown) (unknown) Eos # (Auto) 0 (units (unknown) date) unknown) (unknown) (no (unknown) (unknown) Eos % (Auto) (units (u nknown) date) 0.0 L unknown) (unknown) (no (unknown) (unknown) Exam (units (unkno wn) date) unknown) (unknown) (no (unknown) (unknown) Hct 21.9 L (units (unk nown) date) unknown) (unknown) (no (unknown) (unknown) Hgb 7.2 L (units (unkn own) date) unknown) (unknown) (no (unknown) (unknown) [facility] (units (unknown) date) [address] unknown) [place] [address] (unknown) (no (unknown) (unknown) Laboratory (units (unk nown) date) Results - last unknown) 24 hr (unknown) (no (unknown) (unknown) Labs (units (unkno wn) date) unknown) (unknown) (no (unknown) (unknown) Labs: (units (unkno wn) date) unknown) (unknown) (no (unknown) (unknown) Lymph # (Auto) (units (unknown) date) 2300 unknown) (unknown) (no (unknown) (unknown) Lymph % (Auto) (units (unknown) date) 17.8 L unknown) (unknown) (no (unknown) (unknown) MCH 28.1 (units (unkno wn) date) unknown) (unknown) (no (unknown) (unknown) MCHC 32.8 (units (unkn own) date) unknown) (unknown) (no (unknown) (unknown) MCV 85.8 (units (unkno wn) date) unknown) (unknown) (no (unknown) (unknown) [place] # (Auto) (units ( unknown) date) 1400 H unknown) (unknown) (no (unknown) (unknown) [place] % (Auto) (units ( unknown) date) 10.7 unknown) (unknown) (no (unknown) (unknown) Neut # (Auto) (units ( unknown) date) 9200 H unknown) (unknown) (no (unknown) (unknown) Neut % (Auto) (units ( unknown) date) 71.4 unknown) (unknown) (no (unknown) (unknown) Hobson baby (units (u nknown) date) status: doing unknown) well (unknown) (no (unknown) (unknown) VEGETABLE GRADER Progress (units (unknown) date) Note unknown) (unknown) (no (unknown) (unknown) Objective (units (unkn own) date) unknown) (unknown) (no (unknown) (unknown) Oxygen Delivery (units (unknown) date) Method Room Air unknown) (unknown) (no (unknown) (unknown) Oxygen Flow (units (un known) date) Rate 10 unknown) (unknown) (no (unknown) (unknown) Patient: (units (unkno wn) date) Trini Lorenz unknown) MR#: [id number] (unknown) (no (unknown) (unknown) Plt Count 231 (units ( unknown) date) unknown) (unknown) (no (unknown) (unknown) (units (unk nown) date) Assessment + unknown) Plan (unknown) (no (unknown) (unknown) Provider: (units (unkn own) date) Lynne Campuzano unknown) Sirisha WYLIE (unknown) (no (unknown) (unknown) RBC 2.55 L (units (unk nown) date) unknown) (unknown) (no (unknown) (unknown) RDW 14.4 (units (unkno wn) date) unknown) (unknown) (no (unknown) (unknown) Result (units (unkno wn) date) Diagrams: unknown) (unknown) (no (unknown) (unknown) Signed By: (units (unk nown) date) unknown) (unknown) (no (unknown) (unknown) Subjective - OB (units (unknown) date) unknown) (unknown) (no (unknown) (unknown) Subjective (units (unk nown) date) unknown) (unknown) (no (unknown) (unknown) Time Spent With (units (unknown) date) Patient unknown) (unknown) (no (unknown) (unknown) Time: (units (unkno wn) date) unknown) (unknown) (no (unknown) (unknown) Total time (units (unk nown) date) spent is greater unknown) than 50% in coordination of care (as documented) at (unknown) (no (unknown) (unknown) Vital Signs (units (un known) date) unknown) (unknown) (no (unknown) (unknown) WBC 12.9 H (units (unk nown) date) unknown) (unknown) (no (unknown) (unknown) [Embedded Image (units (unknown) date) Not Available] unknown) (unknown) (no (unknown) (unknown) patient's (units (unkn own) date) floor/unit unknown) and/or counseling patient: Result panel 382 (unknown) (no (unknown) (unknown) (no value) (units (unk nown) date) unknown) (unknown) (no (unknown) (unknown) (past 8 hours): (units (unknown) date) unknown) (unknown) (no (unknown) (unknown) 06:41 (units (unkno wn) date) unknown) (unknown) (no (unknown) (unknown) 07/07 Hgb/Hct (units ( unknown) date) 10.0/21.9 unknown) (unknown) (no (unknown) (unknown) 07/10/22 06:41 (units (unknown) date) unknown) (unknown) (no (unknown) (unknown) 07/10/22 (units (unkno wn) date) unknown) (unknown) (no (unknown) (unknown) [id number] (units (unkno wn) date) unknown) (unknown) (no (unknown) (unknown) Abdomen: ?Soft, (units (unknown) date) nontender, unknown) nondistended. ?Fundus [], firm, nontender (unknown) (no (unknown) (unknown) Age/Sex: 27 / F (units (unknown) date) unknown) (unknown) (no (unknown) (unknown) Baso # (Auto) 0 (units (unknown) date) unknown) (unknown) (no (unknown) (unknown) Baso % (Auto) (units ( unknown) date) 0.1 unknown) (unknown) (no (unknown) (unknown) : 1995 (units (unknown) date) Acct:[id number] unknown) (unknown) (no (unknown) (unknown) Date of (units (unkno wn) date) Service: unknown) 07/07/22 (unknown) (no (unknown) (unknown) Eos # (Auto) 0 (units (unknown) date) unknown) (unknown) (no (unknown) (unknown) Eos % (Auto) (units (u nknown) date) 0.0 L unknown) (unknown) (no (unknown) (unknown) Exam Narrative: (units (unknown) date) unknown) (unknown) (no (unknown) (unknown) Exam (units (unkno wn) date) unknown) (unknown) (no (unknown) (unknown) Extremities: (units (u nknown) date) ?Trace pedal unknown) edema (unknown) (no (unknown) (unknown) General: (units (unkno wn) date) ?Well-appearing unknown) female (unknown) (no (unknown) (unknown) Hct 21.9 L (units (unk nown) date) unknown) (unknown) (no (unknown) (unknown) Hgb 7.2 L (units (unkn own) date) unknown) (unknown) (no (unknown) (unknown) [facility] (units (unknown) date) [address] [place] [address] unknown) [place] [address] (unknown) (no (unknown) (unknown) Laboratory (units (unk nown) date) Results - last unknown) 24 hr (unknown) (no (unknown) (unknown) Labs (units (unkno wn) date) unknown) (unknown) (no (unknown) (unknown) Labs: (units (unkno wn) date) unknown) (unknown) (no (unknown) (unknown) Lymph # (Auto) (units (unknown) date) 2300 unknown) (unknown) (no (unknown) (unknown) Lymph % (Auto) (units (unknown) date) 17.8 L unknown) (unknown) (no (unknown) (unknown) MCH 28.1 (units (unkno wn) date) unknown) (unknown) (no (unknown) (unknown) MCHC 32.8 (units (unkn own) date) unknown) (unknown) (no (unknown) (unknown) MCV 85.8 (units (unkno wn) date) unknown) (unknown) (no (unknown) (unknown) [place] # (Auto) (units ( unknown) date) 1400 H unknown) (unknown) (no (unknown) (unknown) [place] % (Auto) (units ( unknown) date) 10.7 unknown) (unknown) (no (unknown) (unknown) Narrative (units (unkn own) date) unknown) (unknown) (no (unknown) (unknown) Neut # (Auto) (units ( unknown) date) 9200 H unknown) (unknown) (no (unknown) (unknown) Neut % (Auto) (units ( unknown) date) 71.4 unknown) (unknown) (no (unknown) (unknown) Hobson baby (units (u nknown) date) status: doing unknown) well (unknown) (no (unknown) (unknown) VEGETABLE GRADER Progress (units (unknown) date) Note unknown) (unknown) (no (unknown) (unknown) Objective (units (unkn own) date) unknown) (unknown) (no (unknown) (unknown) Oxygen Delivery (units (unknown) date) Method Room Air unknown) (unknown) (no (unknown) (unknown) Oxygen Flow (units (un known) date) Rate 10 unknown) (unknown) (no (unknown) (unknown) Patient: (units (unkno wn) date) Trini Lorenz unknown) MR#: [id number] (unknown) (no (unknown) (unknown) Plt Count 231 (units ( unknown) date) unknown) (unknown) (no (unknown) (unknown) (units (unk nown) date) Assessment + unknown) Plan (unknown) (no (unknown) (unknown) Provider: (units (unkn own) date) Lynne Campuzano unknown) Sirisha WYLIE (unknown) (no (unknown) (unknown) RBC 2.55 L (units (unk nown) date) unknown) (unknown) (no (unknown) (unknown) RDW 14.4 (units (unkno wn) date) unknown) (unknown) (no (unknown) (unknown) Result (units (unkno wn) date) Diagrams: unknown) (unknown) (no (unknown) (unknown) Signed By: (units (unk nown) date) unknown) (unknown) (no (unknown) (unknown) Subjective - OB (units (unknown) date) unknown) (unknown) (no (unknown) (unknown) Subjective (units (unk nown) date) unknown) (unknown) (no (unknown) (unknown) Time Spent With (units (unknown) date) Patient unknown) (unknown) (no (unknown) (unknown) Time: (units (unkno wn) date) unknown) (unknown) (no (unknown) (unknown) Tmax 100.7 0n (units ( unknown) date) 07/09 @ 1530 > unknown) Tnow 98.3F BP 96/64, Pulse 92 RR 17 (unknown) (no (unknown) (unknown) Total time (units (unk nown) date) spent is greater unknown) than 50% in coordination of care (as documented) at (unknown) (no (unknown) (unknown) Vital Signs (units (un known) date) unknown) (unknown) (no (unknown) (unknown) WBC 12.9 H (units (unk nown) date) unknown) (unknown) (no (unknown) (unknown) [Embedded Image (units (unknown) date) Not Available] unknown) (unknown) (no (unknown) (unknown) patient's (units (unkn own) date) floor/unit unknown) and/or counseling patient: Result panel 383 (unknown) (no (unknown) (unknown) (no value) (units (unk nown) date) unknown) (unknown) (no (unknown) (unknown) (past 8 hours): (units (unknown) date) unknown) (unknown) (no (unknown) (unknown) 06:41 (units (unkno wn) date) unknown) (unknown) (no (unknown) (unknown) 07/07 Hgb/Hct (units ( unknown) date) 10.0/21.9 unknown) (unknown) (no (unknown) (unknown) 07/10/22 06:41 (units (unknown) date) unknown) (unknown) (no (unknown) (unknown) 07/10/22 (units (unkno wn) date) unknown) (unknown) (no (unknown) (unknown) [id number] (units (unkno wn) date) unknown) (unknown) (no (unknown) (unknown) Abdomen: ?Soft, (units (unknown) date) nontender, unknown) nondistended. ?Fundus [], firm, nontender (unknown) (no (unknown) (unknown) Age/Sex: 27 / F (units (unknown) date) unknown) (unknown) (no (unknown) (unknown) Baso # (Auto) 0 (units (unknown) date) unknown) (unknown) (no (unknown) (unknown) Baso % (Auto) (units ( unknown) date) 0.1 unknown) (unknown) (no (unknown) (unknown) Chux. Patient (units ( unknown) date) slept overnight, unknown) just waking up. Incisional discomfort (unknown) (no (unknown) (unknown) : 1995 (units (unknown) date) Acct:[id number] unknown) (unknown) (no (unknown) (unknown) Date of Service: (units (unknown) date) 07/07/22 unknown) (unknown) (no (unknown) (unknown) Eos # (Auto) 0 (units (unknown) date) unknown) (unknown) (no (unknown) (unknown) Eos % (Auto) 0.0 (units (unknown) date) L unknown) (unknown) (no (unknown) (unknown) Exam Narrative: (units (unknown) date) unknown) (unknown) (no (unknown) (unknown) Exam (units (unkno wn) date) unknown) (unknown) (no (unknown) (unknown) Extremities: (units (u nknown) date) ?Trace pedal unknown) edema (unknown) (no (unknown) (unknown) Lorenzana was (units (unkn own) date) removed unknown) approximately 7:00 a.m.. No expected void yet. Lochia normal (unknown) (no (unknown) (unknown) General: (units (unkno wn) date) ?Well-appearing unknown) female (unknown) (no (unknown) (unknown) Hct 21.9 L (units (unk nown) date) unknown) (unknown) (no (unknown) (unknown) Hgb 7.2 L (units (unkn own) date) unknown) (unknown) (no (unknown) (unknown) [facility] (units (unknown) date) [address] unknown) [place] [address] (unknown) (no (unknown) (unknown) Laboratory (units (unk nown) date) Results - last 24 unknown) hr (unknown) (no (unknown) (unknown) Labs (units (unkno wn) date) unknown) (unknown) (no (unknown) (unknown) Labs: (units (unkno wn) date) unknown) (unknown) (no (unknown) (unknown) Lymph # (Auto) (units (unknown) date) 2300 unknown) (unknown) (no (unknown) (unknown) Lymph % (Auto) (units (unknown) date) 17.8 L unknown) (unknown) (no (unknown) (unknown) MCH 28.1 (units (unkno wn) date) unknown) (unknown) (no (unknown) (unknown) MCHC 32.8 (units (unkn own) date) unknown) (unknown) (no (unknown) (unknown) MCV 85.8 (units (unkno wn) date) unknown) (unknown) (no (unknown) (unknown) [place] # (Auto) (units ( unknown) date) 1400 H unknown) (unknown) (no (unknown) (unknown) [place] % (Auto) (units ( unknown) date) 10.7 unknown) (unknown) (no (unknown) (unknown) Narrative (units (unkn own) date) unknown) (unknown) (no (unknown) (unknown) Narrative: (units (unk nown) date) unknown) (unknown) (no (unknown) (unknown) Neut # (Auto) (units ( unknown) date) 9200 H unknown) (unknown) (no (unknown) (unknown) Neut % (Auto) (units ( unknown) date) 71.4 unknown) (unknown) (no (unknown) (unknown) Hobson baby (units (u nknown) date) status: doing unknown) well (unknown) (no (unknown) (unknown) VEGETABLE GRADER Progress (units (unknown) date) Note unknown) (unknown) (no (unknown) (unknown) Objective (units (unkn own) date) unknown) (unknown) (no (unknown) (unknown) Oxygen Delivery (units (unknown) date) Method Room Air unknown) (unknown) (no (unknown) (unknown) Oxygen Flow Rate (units (unknown) date) 10 unknown) (unknown) (no (unknown) (unknown) Patient (units (unkno wn) date) comments: pain unknown) well controlled, tolerating diet, flatus present and (unknown) (no (unknown) (unknown) Patient: (units (unkno wn) date) Trini Lorenz unknown) MR#: [id number] (unknown) (no (unknown) (unknown) Plt Count 231 (units ( unknown) date) unknown) (unknown) (no (unknown) (unknown) (units (unk nown) date) Assessment + Plan unknown) (unknown) (no (unknown) (unknown) Provider: (units (unkn own) date) Lynne Campuzano unknown) Sirisha WYLIE (unknown) (no (unknown) (unknown) RBC 2.55 L (units (unk nown) date) unknown) (unknown) (no (unknown) (unknown) RDW 14.4 (units (unkno wn) date) unknown) (unknown) (no (unknown) (unknown) Result Diagrams: (units (unknown) date) unknown) (unknown) (no (unknown) (unknown) Signed By: (units (unk nown) date) unknown) (unknown) (no (unknown) (unknown) Subjective - OB (units (unknown) date) unknown) (unknown) (no (unknown) (unknown) Subjective (units (unk nown) date) unknown) (unknown) (no (unknown) (unknown) Time Spent With (units (unknown) date) Patient unknown) (unknown) (no (unknown) (unknown) Time: (units (unkno wn) date) unknown) (unknown) (no (unknown) (unknown) Tmax 100.7 0n (units ( unknown) date) 07/09 @ 1530 > unknown) Tnow 98.3F BP 96/64, Pulse 92 RR 17 (unknown) (no (unknown) (unknown) Total time spent (units (unknown) date) is greater than unknown) 50% in coordination of care (as documented) at (unknown) (no (unknown) (unknown) Vital Signs (units (un known) date) unknown) (unknown) (no (unknown) (unknown) WBC 12.9 H (units (unk nown) date) unknown) (unknown) (no (unknown) (unknown) [Embedded Image (units (unknown) date) Not Available] unknown) (unknown) (no (unknown) (unknown) across her (units (unk nown) date) chest. No unknown) shortness of breath.) (unknown) (no (unknown) (unknown) controlled with (units (unknown) date) the oxycodone. unknown) Sore throat not fully controlled. (unknown) (no (unknown) (unknown) in linear, c/w (units (unknown) date) apparent unknown) discomfort from endotracheal tube. No chest discomfort (unknown) (no (unknown) (unknown) other (Sore (units (un known) date) throat and feels unknown) discomfort extending down to chest but in midline (unknown) (no (unknown) (unknown) overnight, just (units (unknown) date) changed her pad unknown) from 12 hours ago, full pad but nothing on her (unknown) (no (unknown) (unknown) patient's (units (unkn own) date) floor/unit and/or unknown) counseling patient: Result panel 384 (unknown) (no (unknown) (unknown) (no value) (units (unk nown) date) unknown) (unknown) (no (unknown) (unknown) (past 8 hours): (units (unknown) date) unknown) (unknown) (no (unknown) (unknown) 06:41 (units (unkno wn) date) unknown) (unknown) (no (unknown) (unknown) 07/07 Hgb/Hct (units ( unknown) date) 10.0/21.9 unknown) (unknown) (no (unknown) (unknown) 07/10/22 06:41 (units (unknown) date) unknown) (unknown) (no (unknown) (unknown) 07/10/22 0917 (units ( unknown) date) unknown) (unknown) (no (unknown) (unknown) 07/10/22 (units (unkno wn) date) unknown) (unknown) (no (unknown) (unknown) [id number] (units (unkno wn) date) unknown) (unknown) (no (unknown) (unknown) Abdomen: ?Soft, (units (unknown) date) expected unknown) tenderness near incisional dressing, otherwise (unknown) (no (unknown) (unknown) Age/Sex: 27 / F (units (unknown) date) unknown) (unknown) (no (unknown) (unknown) Baso # (Auto) 0 (units (unknown) date) unknown) (unknown) (no (unknown) (unknown) Baso % (Auto) (units ( unknown) date) 0.1 unknown) (unknown) (no (unknown) (unknown) Chux. Patient (units ( unknown) date) slept overnight, unknown) just waking up. Incisional discomfort (unknown) (no (unknown) (unknown) Comments: (units (unkn own) date) unknown) (unknown) (no (unknown) (unknown) Continue other (units (unknown) date) routine postop unknown) care. (unknown) (no (unknown) (unknown) : 1995 (units (unknown) date) Acct:[id number] unknown) (unknown) (no (unknown) (unknown) Date Patient (units (u nknown) date) Seen: 07/10/22 unknown) (unknown) (no (unknown) (unknown) Date of Service: (units (unknown) date) 07/07/22 unknown) (unknown) (no (unknown) (unknown) Discussed (units (unkn own) date) hemoglobin drop. unknown) She had started lower preop as well. Discussed (unknown) (no (unknown) (unknown) Discussed (units (unkn own) date) lozenges for the unknown) sore throat. Will add Chloraseptic spray. (unknown) (no (unknown) (unknown) Eos # (Auto) 0 (units (unknown) date) unknown) (unknown) (no (unknown) (unknown) Eos % (Auto) 0.0 (units (unknown) date) L unknown) (unknown) (no (unknown) (unknown) Exam Narrative: (units (unknown) date) unknown) (unknown) (no (unknown) (unknown) Exam (units (unkno wn) date) unknown) (unknown) (no (unknown) (unknown) Extremities: ?1+ (units (unknown) date) pedal edema, unknown) decreasing. Increased pedal edema had occurred (unknown) (no (unknown) (unknown) Lorenzana was (units (unkn own) date) removed unknown) approximately 7:00 a.m.. No expected void yet. Lochia normal (unknown) (no (unknown) (unknown) General: ?Well (units (unknown) date) but fatigued unknown) appearing female (unknown) (no (unknown) (unknown) Hct 21.9 L (units (unk nown) date) unknown) (unknown) (no (unknown) (unknown) Hgb 7.2 L (units (unkn own) date) unknown) (unknown) (no (unknown) (unknown) [facility] (units (unknown) date) [address] unknown) [place] [address] (unknown) (no (unknown) (unknown) Laboratory (units (unk nown) date) Results - last 24 unknown) hr (unknown) (no (unknown) (unknown) Labs (units (unkno wn) date) unknown) (unknown) (no (unknown) (unknown) Labs: (units (unkno wn) date) unknown) (unknown) (no (unknown) (unknown) Lymph # (Auto) (units (unknown) date) 2300 unknown) (unknown) (no (unknown) (unknown) Lymph % (Auto) (units (unknown) date) 17.8 L unknown) (unknown) (no (unknown) (unknown) MCH 28.1 (units (unkno wn) date) unknown) (unknown) (no (unknown) (unknown) MCHC 32.8 (units (unkn own) date) unknown) (unknown) (no (unknown) (unknown) MCV 85.8 (units (unkno wn) date) unknown) (unknown) (no (unknown) (unknown) [place] # (Auto) (units ( unknown) date) 1400 H unknown) (unknown) (no (unknown) (unknown) [place] % (Auto) (units ( unknown) date) 10.7 unknown) (unknown) (no (unknown) (unknown) Narrative (units (unkn own) date) unknown) (unknown) (no (unknown) (unknown) Narrative: (units (unk nown) date) unknown) (unknown) (no (unknown) (unknown) Neut # (Auto) (units ( unknown) date) 9200 H unknown) (unknown) (no (unknown) (unknown) Neut % (Auto) (units ( unknown) date) 71.4 unknown) (unknown) (no (unknown) (unknown) baby (units (u nknown) date) status: doing unknown) well and nursing well (unknown) (no (unknown) (unknown) Hobson feeding (units (unknown) date) status: unknown) exclusively breast feeding (unknown) (no (unknown) (unknown) VEGETABLE GRADER Progress (units (unknown) date) Note unknown) (unknown) (no (unknown) (unknown) Objective (units (unkn own) date) unknown) (unknown) (no (unknown) (unknown) Oxygen Delivery (units (unknown) date) Method Room Air unknown) (unknown) (no (unknown) (unknown) Oxygen Flow Rate (units (unknown) date) 10 unknown) (unknown) (no (unknown) (unknown) Patient (units (unkno wn) date) comments: pain unknown) well controlled, tolerating diet, flatus present and (unknown) (no (unknown) (unknown) Patient: (units (unkno wn) date) Trini Lorenz unknown) MR#: [id number] (unknown) (no (unknown) (unknown) Plt Count 231 (units ( unknown) date) unknown) (unknown) (no (unknown) (unknown) (units (unk nown) date) Assessment + Plan unknown) (unknown) (no (unknown) (unknown) Plan (units (unknown) date) unknown) (unknown) (no (unknown) (unknown) day: (units (unknown) date) 1 unknown) (unknown) (no (unknown) (unknown) plan (units (unknown) date) OB: routine unknown) postop care (unknown) (no (unknown) (unknown) Provider: (units (unkn own) date) Lynne Campuzano unknown) Sirisha WYLIE (unknown) (no (unknown) (unknown) RBC 2.55 L (units (unk nown) date) unknown) (unknown) (no (unknown) (unknown) RDW 14.4 (units (unkno wn) date) unknown) (unknown) (no (unknown) (unknown) Result Diagrams: (units (unknown) date) unknown) (unknown) (no (unknown) (unknown) Signed (units (unkno wn) date) By:<Electronicall unknown) y signed by Lynne Campuzano MD> (unknown) (no (unknown) (unknown) Skin: Without (units ( unknown) date) pallor unknown) (unknown) (no (unknown) (unknown) Subjective - OB (units (unknown) date) unknown) (unknown) (no (unknown) (unknown) Subjective (units (unk nown) date) unknown) (unknown) (no (unknown) (unknown) TXA. Lochia (units (un known) date) normal overnight. unknown) (unknown) (no (unknown) (unknown) Time Patient (units (u nknown) date) Seen: 08:15 unknown) (unknown) (no (unknown) (unknown) Time Spent With (units (unknown) date) Patient unknown) (unknown) (no (unknown) (unknown) Time with (units (unkn own) date) patient: less unknown) than 15 minutes (unknown) (no (unknown) (unknown) Time: (units (unkno wn) date) unknown) (unknown) (no (unknown) (unknown) Tmax 100.7 0n (units ( unknown) date) 07/09 @ 1530 > unknown) Tnow 98.3F BP 96/64, Pulse 92 RR 17 (unknown) (no (unknown) (unknown) Total time spent (units (unknown) date) is greater than unknown) 50% in coordination of care (as documented) at (unknown) (no (unknown) (unknown) Vital Signs (units (un known) date) unknown) (unknown) (no (unknown) (unknown) WBC 12.9 H (units (unk nown) date) unknown) (unknown) (no (unknown) (unknown) [Embedded Image (units (unknown) date) Not Available] unknown) (unknown) (no (unknown) (unknown) across her (units (unk nown) date) chest. No unknown) shortness of breath.) (unknown) (no (unknown) (unknown) controlled with (units (unknown) date) the oxycodone. unknown) Sore throat not fully controlled. Did not try (unknown) (no (unknown) (unknown) from general (units (u nknown) date) anesthesia. unknown) Bleeding controlled with misoprostol, methargen and (unknown) (no (unknown) (unknown) in linear, c/w (units (unknown) date) apparent unknown) discomfort from endotracheal tube. No chest discomfort (unknown) (no (unknown) (unknown) lozenges, does (units (unknown) date) not appear unknown) offered them yesterday. (unknown) (no (unknown) (unknown) nontender, (units (unk nown) date) nondistended. unknown) ?Fundus U+0, firm, nontender (unknown) (no (unknown) (unknown) nursing by her (units (unknown) date) side with 1st unknown) time up to the bathroom. Discussed low rising up (unknown) (no (unknown) (unknown) other (Sore (units (un known) date) throat and feels unknown) discomfort extending down to chest but in midline (unknown) (no (unknown) (unknown) out of bed, sit (units (unknown) date) at edge of bed unknown) 1st and slow ambulation. 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 unknown) (unknown) (no (unknown) (unknown) yesterday during (units (unknown) date) induction. No unknown) calf tenderness bilaterally. Result panel 385 (unknown) (no date) (unknown) (unknown) 14.6 % (unkn own) (unknown) (no date) (unknown) (unknown) 2.60 x10 6/ul (unkn own) (unknown) (no date) (unknown) (unknown) 22.5 % (unkn own) (unknown) (no date) (unknown) (unknown) 271 x10 3/ul (unkn own) (unknown) (no date) (unknown) (unknown) 28.8 pg (unkn own) (unknown) (no date) (unknown) (unknown) 33.3 % (unkn own) (unknown) (no date) (unknown) (unknown) 7.5 g/dl (unkn own) (unknown) (no date) (unknown) (unknown) 86.4 fl (unkn own) (unknown) (no date) (unknown) (unknown) 9.9 x10 3/ul (unkn own) Result panel 386 (unknown) (no (unknown) (unknown) (no value) (units (unk nown) date) unknown) (unknown) (no (unknown) (unknown) (Please follow (units (unknown) date) up with Dr. sumanth Campuzano for dressing removal/incision check on (unknown) (no (unknown) (unknown) (past 8 hours): (units (unknown) date) unknown) (unknown) (no (unknown) (unknown) [id number] (units (unkno wn) date) unknown) (unknown) (no (unknown) (unknown) 04:13 07/11/22 (units (unknown) date) unknown) (unknown) (no (unknown) (unknown) 08:03 (units (unkno wn) date) unknown) (unknown) (no (unknown) (unknown) 1 tab PO DAILY (units (unknown) date) unknown) (unknown) (no (unknown) (unknown) 1 to 2 tablets (units (unknown) date) every 4-6 hours unknown) as needed for moderate or severe pain. (unknown) (no (unknown) (unknown) 10:24 (units (unkno wn) date) unknown) (unknown) (no (unknown) (unknown) 07/07/22 18:53 (units (unknown) date) unknown) (unknown) (no (unknown) (unknown) 07/09/22 10:25 (units (unknown) date) unknown) (unknown) (no (unknown) (unknown) 07/11/22 08:03 (units (unknown) date) unknown) (unknown) (no (unknown) (unknown) 07/11/22 (units (unkno wn) date) unknown) (unknown) (no (unknown) (unknown) 20 0RF (units (unkno wn) date) unknown) (unknown) (no (unknown) (unknown) 200 mg PO DAILY (units (unknown) date) Qty: 20 0RF unknown) (unknown) (no (unknown) (unknown) 600 mg PO Q6HR (units (unknown) date) PRN (Reason: unknown) pain) Qty: 60 0RF (unknown) (no (unknown) (unknown) Activity: No (units (u nknown) date) heavy lifting for unknown) 6 weeks, nothing heavier than the baby with the (unknown) (no (unknown) (unknown) Age/Sex: 27 / F (units (unknown) date) unknown) (unknown) (no (unknown) (unknown) Anemia (units (unkno wn) date) unknown) (unknown) (no (unknown) (unknown) Ute (units (unkn own) date) MD Tatianna unknown) (unknown) (no (unknown) (unknown) Blood Pressure (units (unknown) date) 114/60 unknown) (unknown) (no (unknown) (unknown) Comment: (units (unkno wn) date) unknown) (unknown) (no (unknown) (unknown) Consult to (units (unk nown) date) unknown) 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 (unknown) (no (unknown) (unknown) Consults: (units (unkn own) date) unknown) (unknown) (no (unknown) (unknown) Continued (units (unkn own) date) unknown) (unknown) (no (unknown) (unknown) : 1995 (units (unknown) date) Acct:[id number] unknown) (unknown) (no (unknown) (unknown) Date Patient (units (u nknown) date) Seen: 07/11/22 unknown) (unknown) (no (unknown) (unknown) Date of Service: (units (unknown) date) 07/07/22 unknown) (unknown) (no (unknown) (unknown) Date of (units (unkno wn) date) admission: unknown) (unknown) (no (unknown) (unknown) 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 (unknown) (no (unknown) (unknown) Diagnoses: (units (unk nown) date) unknown) (unknown) (no (unknown) (unknown) Diet/Activity/Tr (units (unknown) date) eatments unknown) (unknown) (no (unknown) (unknown) Diet: Regular (units ( unknown) date) unknown) (unknown) (no (unknown) (unknown) Discharge Data (units (unknown) date) unknown) (unknown) (no (unknown) (unknown) Discharge Date: (units (unknown) date) 07/11/22 unknown) (unknown) (no (unknown) (unknown) Discharge Health (units (unknown) date) Status unknown) (unknown) (no (unknown) (unknown) Discharge Plan (units (unknown) date) unknown) (unknown) (no (unknown) (unknown) Discharge (units (unkn own) date) Providers unknown) (unknown) (no (unknown) (unknown) Discharge (units (unkn own) date) Summary unknown) (unknown) (no (unknown) (unknown) Discharge orders (units (unknown) date) + Medications unknown) (unknown) (no (unknown) (unknown) Discharge (units (unkn own) date) provider: unknown) (unknown) (no (unknown) (unknown) Dressing: (units (unkn own) date) Dressing will be unknown) removed at your follow-up appointment in (unknown) (no (unknown) (unknown) Exam (units (unkno wn) date) unknown) (unknown) (no (unknown) (unknown) (units (unkno wn) date) intolerance of unknown) labor (unknown) (no (unknown) (unknown) macrosomia (units (unknown) date) diagnosed at unknown) delivery (unknown) (no (unknown) (unknown) Follow (units (unkno wn) date) up/Referrals: unknown) (unknown) (no (unknown) (unknown) Hct 22.5 L (units (unk nown) date) unknown) (unknown) (no (unknown) (unknown) Lynne Campuzano (units (u nknown) date) MD Sirisha unknown) [Physician] (unknown) (no (unknown) (unknown) Hgb 7.5 L (units (unkn own) date) unknown) (unknown) (no (unknown) (unknown) Hospital Course (units (unknown) date) unknown) (unknown) (no (unknown) (unknown) Instructions: DI (units (unknown) date) for unknown) (unknown) (no (unknown) (unknown) [facility] (units (unknown) date) [address] unknown) [place] [id number] (unknown) (no (unknown) (unknown) Parris Schmid (units (unknown) date) BRENDA morales [Primary unknown) Care Provider] (unknown) (no (unknown) (unknown) Laboratory (units (unk nown) date) Results - last 24 unknown) hr (unknown) (no (unknown) (unknown) Labs (units (unkno wn) date) unknown) (unknown) (no (unknown) (unknown) Labs: (units (unkno wn) date) unknown) (unknown) (no (unknown) (unknown) MCH 28.8 (units (unkno wn) date) unknown) (unknown) (no (unknown) (unknown) MCHC 33.3 (units (unkn own) date) unknown) (unknown) (no (unknown) (unknown) MCV 86.4 (units (unkno wn) date) unknown) (unknown) (no (unknown) (unknown) Sunday (units (unknown) date) at 0900 with unknown) a 0845 check in time. If you have any (unknown) (no (unknown) (unknown) Multidrug (units (unkn own) date) resistant unknown) organism: No MDRO (unknown) (no (unknown) (unknown) New (units (unkno wn) date) unknown) (unknown) (no (unknown) (unknown) Nothing in the (units (unknown) date) vagina for 6 unknown) weeks, no tampons and no intercourse. (unknown) (no (unknown) (unknown) Objective (units (unkn own) date) unknown) (unknown) (no (unknown) (unknown) Oxygen Delivery (units (unknown) date) Method Room Air unknown) (unknown) (no (unknown) (unknown) Oxygen Flow Rate (units (unknown) date) 10 unknown) (unknown) (no (unknown) (unknown) Patient (units (unkno wn) date) Disposition: Home unknown) (unknown) (no (unknown) (unknown) Patient: (units (unkno wn) date) Trini Lorenz N unknown) MR#: [id number] (unknown) (no (unknown) (unknown) Plt Count 271 (units ( unknown) date) unknown) (unknown) (no (unknown) (unknown) Post-dates (units (unk nown) date) at 41 unknown) weeks,induction of labor, delivered (unknown) (no (unknown) (unknown) appt (units (unknown) date) w/ Dr. Campuzano: unknown) @ 3:15pm w/ a 3pm check in time) (unknown) (no (unknown) (unknown) , (units (un known) date) post-operative unknown) Day 2,from primary C section for delivery (unknown) (no (unknown) (unknown) Prescriptions: (units (unknown) date) unknown) (unknown) (no (unknown) (unknown) Primary Care (units (u nknown) date) Provider: unknown) Britt Schmid (unknown) (no (unknown) (unknown) Primary care (units (u nknown) date) physician: unknown) (unknown) (no (unknown) (unknown) Primary (units (unknown) date) section unknown) (unknown) (no (unknown) (unknown) Provider (units (unkno wn) date) Discharge unknown) Comment: Congratulations! (unknown) (no (unknown) (unknown) Provider (units (unkno wn) date) unknown) (unknown) (no (unknown) (unknown) Provider: (units (unkn own) date) Lynne Campuzano unknown) Sirisha WYLIE (unknown) (no (unknown) (unknown) Pulse Rate 90 (units ( unknown) date) unknown) (unknown) (no (unknown) (unknown) RBC 2.60 L (units (unk nown) date) unknown) (unknown) (no (unknown) (unknown) RDW 14.6 (units (unkno wn) date) unknown) (unknown) (no (unknown) (unknown) Report to your (units (unknown) date) healthcare unknown) provider any signs of infection, such as:: chills, (unknown) (no (unknown) (unknown) Respiratory Rate (units (unknown) date) 14 unknown) (unknown) (no (unknown) (unknown) Result Diagrams: (units (unknown) date) unknown) (unknown) (no (unknown) (unknown) Rx Instructions: (units (unknown) date) unknown) (unknown) (no (unknown) (unknown) Britt (units (unkno wn) date) BRENDA Schmid unknown) (unknown) (no (unknown) (unknown) See Rx (units (unkno wn) date) Instructions unknown) .ROUTE .COMPLEX PRN (Reason: Pain, Moderate (4-6)) Qty: (unknown) (no (unknown) (unknown) Signed By: (units (unk nown) date) unknown) (unknown) (no (unknown) (unknown) Skin care: You (units (unknown) date) may shower with unknown) the dressing in place. (unknown) (no (unknown) (unknown) Skin/Wound/Dress (units (unknown) date) ing Care unknown) (unknown) (no (unknown) (unknown) Stand Alone (units (un known) date) Forms: Discharge: unknown) Care (unknown) (no (unknown) (unknown) Summary (units (unkno wn) date) unknown) (unknown) (no (unknown) (unknown) Temperature 97.4 (units (unknown) date) F L 97.8 F unknown) (unknown) (no (unknown) (unknown) Time Patient (units (u nknown) date) Seen: 09:30 unknown) (unknown) (no (unknown) (unknown) Time Spent with (units (unknown) date) Patient unknown) (unknown) (no (unknown) (unknown) Time (units (unkno wn) date) attestation: unknown) (unknown) (no (unknown) (unknown) Total time spent (units (unknown) date) providing and/or unknown) coordinating discharge services: (unknown) (no (unknown) (unknown) Visit (units (unkno wn) date) Report/Discharge unknown) Packet (unknown) (no (unknown) (unknown) Vital Signs (units (un known) date) unknown) (unknown) (no (unknown) (unknown) WBC 9.9 (units (unkno wn) date) unknown) (unknown) (no (unknown) (unknown) [Embedded Image (units (unknown) date) Not Available] unknown) (unknown) (no (unknown) (unknown) approximately 1 (units (unknown) date) week. unknown) (unknown) (no (unknown) (unknown) carrier. (units (unkno wn) date) unknown) (unknown) (no (unknown) (unknown) docusate sodium (units (unknown) date) 100 mg Capsule unknown) (unknown) (no (unknown) (unknown) fever, increased (units (unknown) date) pain, unusual unknown) drainage and unusual redness (unknown) (no (unknown) (unknown) ibuprofen 600 mg (units (unknown) date) Tablet unknown) (unknown) (no (unknown) (unknown) oxycodone 5 mg (units (unknown) date) Tablet unknown) (unknown) (no (unknown) (unknown) prenat.vits,emilia, (units (unknown) date) vij-ixlk-vfflo unknown) Tablet (unknown) (no (unknown) (unknown) questions/concer (units (unknown) date) ns or need to unknown) reschedule please call . Result panel 387 (unknown) (no (unknown) (unknown) (no value) (units (unk nown) date) unknown) (unknown) (no (unknown) (unknown) (1) Status post (units (unknown) date) unknown) delivery: (unknown) (no (unknown) (unknown) (2) Acute on (units (u nknown) date) chronic anemia: unknown) (unknown) (no (unknown) (unknown) (Please follow (units (unknown) date) up with Dr. nevarez) Tatianna for dressing removal/incision check on (unknown) (no (unknown) (unknown) (past 8 hours): (units (unknown) date) unknown) (unknown) (no (unknown) (unknown) [phone] (units (unkno wn) date) unknown) (unknown) (no (unknown) (unknown) 04:13 07/11/22 (units (unknown) date) unknown) (unknown) (no (unknown) (unknown) 08:03 (units (unkno wn) date) unknown) (unknown) (no (unknown) (unknown) 1 cm and then (units ( unknown) date) easily stretched unknown) to 4 cm. Bag of for moreno palpable infant the (unknown) (no (unknown) (unknown) 1 tab PO DAILY (units (unknown) date) unknown) (unknown) (no (unknown) (unknown) 1 to 2 tablets (units (unknown) date) every 4-6 hours unknown) as needed for moderate or severe pain. (unknown) (no (unknown) (unknown) 10:24 (units (unkno wn) date) unknown) (unknown) (no (unknown) (unknown) 07/07/22 18:53 (units (unknown) date) unknown) (unknown) (no (unknown) (unknown) 07/09/22 10:25 (units (unknown) date) unknown) (unknown) (no (unknown) (unknown) 07/11/22 08:03 (units (unknown) date) unknown) (unknown) (no (unknown) (unknown) 07/11/22 1113 (units ( unknown) date) unknown) (unknown) (no (unknown) (unknown) 07/11/22 (units (unkno wn) date) unknown) (unknown) (no (unknown) (unknown) 1: (units (unkno wn) date) unknown) (unknown) (no (unknown) (unknown) 20 0RF (units (unkno wn) date) unknown) (unknown) (no (unknown) (unknown) 200 mg PO DAILY (units (unknown) date) Qty: 20 0RF unknown) (unknown) (no (unknown) (unknown) 600 mg PO Q6HR (units (unknown) date) PRN (Reason: unknown) pain) Qty: 60 0RF (unknown) (no (unknown) (unknown) 8 and 9.. Her (units ( unknown) date) blood loss was unknown) normal at the time of with the uterus (unknown) (no (unknown) (unknown) Abdomen: Soft, (units (unknown) date) expected unknown) rocio-incisional tenderness, otherwise nontender, (unknown) (no (unknown) (unknown) Activity: No (units (u nknown) date) heavy lifting for unknown) 6 weeks, nothing heavier than the baby with the (unknown) (no (unknown) (unknown) Age/Sex: 27 / F (units (unknown) date) unknown) (unknown) (no (unknown) (unknown) Anemia (units (unkno wn) date) unknown) (unknown) (no (unknown) (unknown) Lynne Grimm (units (unkn own) date) MD Tatianna unknown) (unknown) (no (unknown) (unknown) Blood Pressure (units (unknown) date) 114/60 unknown) (unknown) (no (unknown) (unknown) Cognitive/behavi (units (unknown) date) oral status at unknown) discharge: oriented and at baseline, oriented (unknown) (no (unknown) (unknown) Comment: (units (unkno wn) date) unknown) (unknown) (no (unknown) (unknown) Consult to (units (unk nown) date) unknown) 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 (unknown) (no (unknown) (unknown) Consults: (units (unkn own) date) unknown) (unknown) (no (unknown) (unknown) Continued (units (unkn own) date) unknown) (unknown) (no (unknown) (unknown) : 1995 (units (unknown) date) Acct:[id number] unknown) (unknown) (no (unknown) (unknown) Date Patient (units (u nknown) date) Seen: 07/11/22 unknown) (unknown) (no (unknown) (unknown) Date of Service: (units (unknown) date) 07/07/22 unknown) (unknown) (no (unknown) (unknown) Date of (units (unkno wn) date) admission: unknown) (unknown) (no (unknown) (unknown) 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 (unknown) (no (unknown) (unknown) Diagnoses: (units (unk nown) date) unknown) (unknown) (no (unknown) (unknown) Diet/Activity/Tr (units (unknown) date) eatments unknown) (unknown) (no (unknown) (unknown) Diet: Regular (units ( unknown) date) unknown) (unknown) (no (unknown) (unknown) Discharge Data (units (unknown) date) unknown) (unknown) (no (unknown) (unknown) Discharge Date: (units (unknown) date) 07/11/22 unknown) (unknown) (no (unknown) (unknown) Discharge (units (unkn own) date) Diagnosis unknown) (unknown) (no (unknown) (unknown) Discharge Health (units (unknown) date) Status unknown) (unknown) (no (unknown) (unknown) Discharge Plan (units (unknown) date) unknown) (unknown) (no (unknown) (unknown) Discharge (units (unkn own) date) Providers unknown) (unknown) (no (unknown) (unknown) Discharge (units (unkn own) date) Summary unknown) (unknown) (no (unknown) (unknown) Discharge orders (units (unknown) date) + Medications unknown) (unknown) (no (unknown) (unknown) Discharge (units (unkn own) date) provider: unknown) (unknown) (no (unknown) (unknown) Discussed by (units (u nknown) date) heart rate unknown) pattern, indicated that the baby would tolerate (unknown) (no (unknown) (unknown) Discussion was (units ( unknown) date) held with the pt unknown) that the baby was not tolerating the more active (unknown) (no (unknown) (unknown) Disposition of (units (unknown) date) : home unknown) (unknown) (no (unknown) (unknown) Dressing: (units (unkn own) date) Dressing will be unknown) removed at your follow-up appointment in (unknown) (no (unknown) (unknown) Exam Narrative: (units (unknown) date) unknown) (unknown) (no (unknown) (unknown) Exam (units (unkno wn) date) unknown) (unknown) (no (unknown) (unknown) Extremities: 1+ (units (unknown) date) pedal edema, no unknown) calf tenderness (unknown) (no (unknown) (unknown) (units (unkno wn) date) intolerance of unknown) labor (unknown) (no (unknown) (unknown) macrosomia (units (unknown) date) diagnosed at unknown) delivery (unknown) (no (unknown) (unknown) Follow (units (unkno wn) date) up/Referrals: unknown) (unknown) (no (unknown) (unknown) Follow-up for (units ( unknown) date) incision check in unknown) 1 week. (unknown) (no (unknown) (unknown) Functional (units (unk nown) date) status at unknown) discharge: independent ambulation (unknown) (no (unknown) (unknown) Gender: Female (units (unknown) date) unknown) (unknown) (no (unknown) (unknown) General: (units (unkno wn) date) Well-appearing unknown) female (unknown) (no (unknown) (unknown) Hct 22.5 L (units (unk nown) date) unknown) (unknown) (no (unknown) (unknown) Lynne Campuzano (units (u nknown) date) MD Sirisha unknown) [Physician] (unknown) (no (unknown) (unknown) Her cervix (units (unk nown) date) became more unknown) favorable at fingertip/100% and Pitocin was started for (unknown) (no (unknown) (unknown) Hgb 7.5 L (units (unkn own) date) unknown) (unknown) (no (unknown) (unknown) Hospital Course (units (unknown) date) unknown) (unknown) (no (unknown) (unknown) Hospital Course: (units (unknown) date) unknown) (unknown) (no (unknown) (unknown) Delivery (units (unknown) date) Method: unknown) Section (unknown) (no (unknown) (unknown) Instructions: DI (units (unknown) date) for unknown) (unknown) (no (unknown) (unknown) [facility] (units (unknown) date) [address] unknown) [place] [address] (unknown) (no (unknown) (unknown) Parris Schmid (units (unknown) date) andrew, ENAMEL BURNER [Primary unknown) Care Provider] (unknown) (no (unknown) (unknown) Trini is a 27 (units (unknown) date) yo female who was unknown) admitted as a female at 41 weeks for (unknown) (no (unknown) (unknown) Laboratory (units (unk nown) date) Results - last 24 unknown) hr (unknown) (no (unknown) (unknown) Labs (units (unkno wn) date) unknown) (unknown) (no (unknown) (unknown) Labs: (units (unkno wn) date) unknown) (unknown) (no (unknown) (unknown) MCH 28.8 (units (unkno wn) date) unknown) (unknown) (no (unknown) (unknown) MCHC 33.3 (units (unkn own) date) unknown) (unknown) (no (unknown) (unknown) MCV 86.4 (units (unkno wn) date) unknown) (unknown) (no (unknown) (unknown) Sunday (units (unknown) date) at 0900 with unknown) a 0845 check in time. If you have any (unknown) (no (unknown) (unknown) Multidrug (units (unkn own) date) resistant unknown) organism: No MDRO (unknown) (no (unknown) (unknown) Narrative (units (unkn own) date) unknown) (unknown) (no (unknown) (unknown) New (units (unkno wn) date) unknown) (unknown) (no (unknown) (unknown) (units (unkno wn) date) unknown) (unknown) (no (unknown) (unknown) Nothing in the (units (unknown) date) vagina for 6 unknown) weeks, no tampons and no intercourse. (unknown) (no (unknown) (unknown) Now on (units (unkno wn) date) day 2, unknown) she feels a little better, less incisional discomfort (unknown) (no (unknown) (unknown) Objective (units (unkn own) date) unknown) (unknown) (no (unknown) (unknown) On (units ( unknown) date) day 1 her unknown) hemoglobin decreased to 7.2, from her starting (unknown) (no (unknown) (unknown) On review of the (units (unknown) date) external unknown) monitor tracing prior to the epidural I noted (unknown) (no (unknown) (unknown) Overall status (units (unknown) date) at discharge: unknown) patient is progressing back to baseline (unknown) (no (unknown) (unknown) Oxygen Delivery (units (unknown) date) Method Room Air unknown) (unknown) (no (unknown) (unknown) Oxygen Flow Rate (units (unknown) date) 10 unknown) (unknown) (no (unknown) (unknown) Patient (units (unkno wn) date) Disposition: Home unknown) (unknown) (no (unknown) (unknown) Patient: (units (unkno wn) date) Trini Lorenz N unknown) MR#: [id number] (unknown) (no (unknown) (unknown) Peripartum Data (units (unknown) date) unknown) (unknown) (no (unknown) (unknown) Plt Count 271 (units ( unknown) date) unknown) (unknown) (no (unknown) (unknown) Post-dates (units (unk nown) date) at 41 unknown) weeks,induction of labor, delivered (unknown) (no (unknown) (unknown) appt (units (unknown) date) w/ Dr. Campuzano: unknown) @ 3:15pm w/ a 3pm check in time) (unknown) (no (unknown) (unknown) (units (unk nown) date) complications: unknown) uterine atony (Delayed, about 30 minutes after (unknown) (no (unknown) (unknown) , (units (un known) date) post-operative unknown) Day 2,from primary C section for delivery (unknown) (no (unknown) (unknown) Prescriptions: (units (unknown) date) unknown) (unknown) (no (unknown) (unknown) Primary Care (units (u nknown) date) Provider: unknown) Britt Schmid (unknown) (no (unknown) (unknown) Primary care (units (u nknown) date) physician: unknown) (unknown) (no (unknown) (unknown) Primary (units (unknown) date) section unknown) (unknown) (no (unknown) (unknown) Problem Details: (units (unknown) date) unknown) (unknown) (no (unknown) (unknown) Provider (units (unkno wn) date) Discharge unknown) Comment: Congratulations! (unknown) (no (unknown) (unknown) Provider (units (unkno wn) date) unknown) (unknown) (no (unknown) (unknown) Provider: (units (unkn own) date) Lynne Campuzano unknown) Sirisha WYLIE (unknown) (no (unknown) (unknown) Pulse Rate 90 (units ( unknown) date) unknown) (unknown) (no (unknown) (unknown) RBC 2.60 L (units (unk nown) date) unknown) (unknown) (no (unknown) (unknown) RDW 14.6 (units (unkno wn) date) unknown) (unknown) (no (unknown) (unknown) Report to your (units (unknown) date) healthcare unknown) provider any signs of infection, such as:: chills, (unknown) (no (unknown) (unknown) Respiratory Rate (units (unknown) date) 14 unknown) (unknown) (no (unknown) (unknown) Respiratory: (units (u nknown) date) Normal unknown) respiratory effort. Speaks in full sentences without (unknown) (no (unknown) (unknown) Result Diagrams: (units (unknown) date) unknown) (unknown) (no (unknown) (unknown) Rx Instructions: (units (unknown) date) unknown) (unknown) (no (unknown) (unknown) Britt (units (unkno wn) date) PRADEEP SchmidP unknown) (unknown) (no (unknown) (unknown) See Rx (units (unkno wn) date) Instructions unknown) .ROUTE .COMPLEX PRN (Reason: Pain, Moderate (4-6)) Qty: (unknown) (no (unknown) (unknown) She already had (units (unknown) date) a Lorenzana catheter unknown) in place her epidural. She was transferred to (unknown) (no (unknown) (unknown) She does have a (units (unknown) date) sore throat from unknown) a more difficult intubation, and was using (unknown) (no (unknown) (unknown) Signed (units (unkno wn) date) By:<Electronicall unknown) y signed by Lynne Campuzano MD> (unknown) (no (unknown) (unknown) Skin care: You (units (unknown) date) may shower with unknown) the dressing in place. (unknown) (no (unknown) (unknown) Skin, mucous (units (u nknown) date) membranes: With unknown) mild pallor (unknown) (no (unknown) (unknown) Skin/Wound/Dress (units (unknown) date) ing Care unknown) (unknown) (no (unknown) (unknown) Stand Alone (units (un known) date) Forms: Discharge: unknown) Care (unknown) (no (unknown) (unknown) Start Date: (units (un known) date) 07/10/22 unknown) (unknown) (no (unknown) (unknown) Start Time: (units (un known) date) 07:00 unknown) (unknown) (no (unknown) (unknown) Status at (units (unkn own) date) Discharge unknown) (unknown) (no (unknown) (unknown) Status: Acute (units ( unknown) date) unknown) (unknown) (no (unknown) (unknown) Summary (units (unkno wn) date) unknown) (unknown) (no (unknown) (unknown) Temperature 97.4 (units (unknown) date) F L 97.8 F unknown) (unknown) (no (unknown) (unknown) Time Patient (units (u nknown) date) Seen: 09:30 unknown) (unknown) (no (unknown) (unknown) Time Spent with (units (unknown) date) Patient unknown) (unknown) (no (unknown) (unknown) Time (units (unkno wn) date) attestation: unknown) (unknown) (no (unknown) (unknown) Time spent: Less (units (unknown) date) than 30 minutes unknown) (unknown) (no (unknown) (unknown) Total time spent (units (unknown) date) providing and/or unknown) coordinating discharge services: (unknown) (no (unknown) (unknown) Visit (units (unkno wn) date) Report/Discharge unknown) Packet (unknown) (no (unknown) (unknown) Vital Signs (units (un known) date) unknown) (unknown) (no (unknown) (unknown) WBC 9.9 (units (unkno wn) date) unknown) (unknown) (no (unknown) (unknown) [Embedded Image (units (unknown) date) Not Available] unknown) (unknown) (no (unknown) (unknown) a shower. She (units ( unknown) date) was given iron unknown) sucrose 200 mg IV. After the initial (unknown) (no (unknown) (unknown) and reports less (units (unknown) date) of a sore throat. unknown) Her incisional discomfort is controlled with (unknown) (no (unknown) (unknown) approximately 1 (units (unknown) date) week. unknown) (unknown) (no (unknown) (unknown) blood loss (units (unk nown) date) unknown) (unknown) (no (unknown) (unknown) blood pressure. (units (unknown) date) She was given unknown) ephedrine to correct the blood pressure, and IV (unknown) (no (unknown) (unknown) (units ( unknown) date) well. The baby is unknown) doing well. (unknown) (no (unknown) (unknown) carrier. (units (unkno wn) date) unknown) (unknown) (no (unknown) (unknown) chronic iron (units (u nknown) date) deficiency anemia unknown) , acute worsening anemia due to acute (unknown) (no (unknown) (unknown) contracted down (units (unknown) date) well. She was unknown) given routine IV Pitocin. However in the (unknown) (no (unknown) (unknown) course. Lochia (units (unknown) date) has since unknown) remained normal. She started passing flatus on (unknown) (no (unknown) (unknown) deceleration (units (un known) date) during the drop unknown) in blood pressure, but resolved with improvement in (unknown) (no (unknown) (unknown) delivery. Due to (units (unknown) date) general unknown) anesthesia) (unknown) (no (unknown) (unknown) desired an (units (unk nown) date) epidural and this unknown) was placed. With the epidural test dose, she had (unknown) (no (unknown) (unknown) difficulty. (units (un known) date) unknown) (unknown) (no (unknown) (unknown) discharge home (units (unknown) date) today. She will unknown) be discharged after a 2nd iron infusion. (unknown) (no (unknown) (unknown) docusate sodium (units (unknown) date) 100 mg Capsule unknown) (unknown) (no (unknown) (unknown) fever, increased (units (unknown) date) pain, unusual unknown) drainage and unusual redness (unknown) (no (unknown) (unknown) fluids were (units (un known) date) increased and her unknown) position was changed to left lateral. Her Pitocin (unknown) (no (unknown) (unknown) had natural (units (un known) date) labor for long unknown) time. As contractions became more uncomfortable, she (unknown) (no (unknown) (unknown) had still been 4 (units (unknown) date) cm/100% effaced/ unknown) now station -2, thus remote from delivery. (unknown) (no (unknown) (unknown) have become (units (un known) date) stronger. I thus unknown) instructed the staff to not restart the Pitocin. (unknown) (no (unknown) (unknown) head and a room (units (unknown) date) for moreno for unknown) clear fluid. Her contractions became more (unknown) (no (unknown) (unknown) heart rate was (units (unknown) date) reactive and unknown) variability improved to moderate. She had (unknown) (no (unknown) (unknown) heavier (units (unkno wn) date) bleeding, she has unknown) continued with a normal postoperative, post (unknown) (no (unknown) (unknown) hemoglobin of (units ( unknown) date) 10. She appeared unknown) mildly pale, but did fine ambulating and taking (unknown) (no (unknown) (unknown) her blood (units (unkn own) date) pressure. The unknown) epidural level wore off and she was given a low dose (unknown) (no (unknown) (unknown) ibuprofen 600 mg (units (unknown) date) Tablet unknown) (unknown) (no (unknown) (unknown) induction of (units (u nknown) date) labor for post unknown) dates. She received Cervidil for cervical ripening. (unknown) (no (unknown) (unknown) induction. She (units (unknown) date) developed strong unknown) regular contractions, but cervix did not (unknown) (no (unknown) (unknown) infusion. (units (unkn own) date) unknown) (unknown) (no (unknown) (unknown) labor and (units (unkn own) date) recommendation unknown) was made to proceed with . Her repeat exam (unknown) (no (unknown) (unknown) lower uterine (units ( unknown) date) segment was very unknown) thin but cervix is not dilating, and felt (unknown) (no (unknown) (unknown) lozenges. (units (unkn own) date) unknown) (unknown) (no (unknown) (unknown) nondistended. (units ( unknown) date) ?Fundus U-1, unknown) firm, nontender (unknown) (no (unknown) (unknown) normal. (units (unkno wn) date) unknown) (unknown) (no (unknown) (unknown) occasional few (units (unknown) date) late unknown) decelerations which would resolve with position change and (unknown) (no (unknown) (unknown) of at least a (units ( unknown) date) lower uterine unknown) segment as the cause of the heavier bleeding.. She (unknown) (no (unknown) (unknown) oxycodone 5 mg (units (unknown) date) Tablet unknown) (unknown) (no (unknown) (unknown) pad. Uterine (units (u nknown) date) fundus was firm, unknown) and with expressing, no further blood was noted (unknown) (no (unknown) (unknown) day (units (unknown) date) 1. She is unknown) ambulating without difficulty. She is overall (unknown) (no (unknown) (unknown) prenat.vits,emilia, (units (unknown) date) [id number] unknown) Tablet (unknown) (no (unknown) (unknown) progress beyond (units (unknown) date) fingertip/80%. unknown) She had a history of a LEEP procedure and the (unknown) (no (unknown) (unknown) questions/concer (units (unknown) date) ns or need to unknown) reschedule please call . (unknown) (no (unknown) (unknown) recovery room (units ( unknown) date) she had a larger unknown) than normal amount of bleeding on a pad and chux (unknown) (no (unknown) (unknown) recovery, she (units ( unknown) date) again had a unknown) larger amount than normal on her peripad going on to (unknown) (no (unknown) (unknown) ringing in her (units (unknown) date) ears, and she unknown) ended up with a high block at T1 with a drop in (unknown) (no (unknown) (unknown) rupture (units (unkno wn) date) membranes of a unknown) small amount of fluid. Contractions have become more (unknown) (no (unknown) (unknown) somewhat tight (units (unknown) date) right around the unknown) os, possibly stenotic os. She had spontaneous (unknown) (no (unknown) (unknown) stronger (units (unkno wn) date) contractions if unknown) Pitocin was increased further which it would be needed (unknown) (no (unknown) (unknown) testing the (units (un known) date) anesthesia unknown) appeared to have no affect. Decision was made to proceed (unknown) (no (unknown) (unknown) that she was (units (un known) date) having more unknown) frequent episodes of late decelerations as contractions (unknown) (no (unknown) (unknown) the Chux pad (units (u nknown) date) with a large unknown) amount. Uterine fundus felt firm, but suspected atony (unknown) (no (unknown) (unknown) the OR. An (units (unk nown) date) attempt was made unknown) to achieve an adequate level of anesthesia through (unknown) (no (unknown) (unknown) the epidural, (units ( unknown) date) without success. unknown) She then underwent spinal anesthesia but with (unknown) (no (unknown) (unknown) the oxycodone (units ( unknown) date) which she has not unknown) taken since last night. She is ambulating (unknown) (no (unknown) (unknown) then not recur (units (unknown) date) for prolonged unknown) time. She coped wonderfully with contractions and (unknown) (no (unknown) (unknown) through the (units (un known) date) vagina. However unknown) after transfer to the birthing center for further (unknown) (no (unknown) (unknown) to progress in (units (unknown) date) labor. She agreed unknown) to proceed with section. (unknown) (no (unknown) (unknown) uncomfortable, (units (unknown) date) but she was unknown) without progression. Cervix was manually dilated to (unknown) (no (unknown) (unknown) uncomfortable. (units (unknown) date) From her unknown) presentation for induction, heart rate (unknown) (no (unknown) (unknown) variability (units (un known) date) during sleep unknown) cycles was minimal, but with activity (unknown) (no (unknown) (unknown) was given (units (unkn own) date) Methergine, unknown) misoprostol and TXA. Her bleeding subsequently remained (unknown) (no (unknown) (unknown) was turned off (units (unknown) date) as the EFM unknown) tracing showed a prolonged heart rate (unknown) (no (unknown) (unknown) with the (units (unkno wn) date) under unknown) general anesthesia. She underwent the (unknown) (no (unknown) (unknown) without (units (unkno wn) date) complications unknown) delivering a baby girl weighing 9 lb 11 oz with Apgars of (unknown) (no (unknown) (unknown) without (units (unkno wn) date) difficulty and unknown) continues to pass gas. She was tolerating a regular diet (unknown) (no (unknown) (unknown) without nausea. (units (unknown) date) Repeat hemoglobin unknown) today is stable at 7.5. She desires (unknown) (no (unknown) (unknown) without problems (units (unknown) date) still. She denies unknown) any shortness of breath. She is voiding Result panel 388 (unknown) (no (unknown) (unknown) (no value) (units (unk nown) date) unknown) (unknown) (no (unknown) (unknown) (+18 lb) 102/68 N (units (unknown) date) unknown) (unknown) (no (unknown) (unknown) (+26 lb) 128/72 N (units (unknown) date) unknown) (unknown) (no (unknown) (unknown) (+3 lb) 110/70 N (units (unknown) date) unknown) (unknown) (no (unknown) (unknown) (+32 lb) 110/72 1 (units (unknown) date) unknown) (unknown) (no (unknown) (unknown) (+35 lb) 108/62 (units (unknown) date) unknown) (unknown) (no (unknown) (unknown) (+36 lb) 114/64 N (units (unknown) date) unknown) (unknown) (no (unknown) (unknown) (+39 lb) 104/70 (units (unknown) date) TR unknown) (unknown) (no (unknown) (unknown) (+43 lb) 122/68 (units (unknown) date) TR unknown) (unknown) (no (unknown) (unknown) (+45 lb) 116/68 (units (unknown) date) TR unknown) (unknown) (no (unknown) (unknown) (+47 lb) 122/72 N (units (unknown) date) unknown) (unknown) (no (unknown) (unknown) (+49 lb) 128/70 N (units (unknown) date) unknown) (unknown) (no (unknown) (unknown) (+6 lb) 104/66 TR (units (unknown) date) unknown) (unknown) (no (unknown) (unknown) (+9 lb) 108/78 N (units (unknown) date) unknown) (unknown) (no (unknown) (unknown) Genetic (units (unkn own) date) Screening/Teratolo unknown) gy Counseling - Includes patient, baby's father, or (unknown) (no (unknown) (unknown) -?-?-?-?-?-?-?-?- (units (unknown) date) ?-?-?-? unknown) (unknown) (no (unknown) (unknown) [id number] (units (unkno wn) date) unknown) (unknown) (no (unknown) (unknown) 12/08/2021 (units (unk nown) date) Caceres viable unknown) intrauterine gestation size equal to dates (unknown) (no (unknown) (unknown) 12/08/21 (units (unkno wn) date) unknown) (unknown) (no (unknown) (unknown) 01/05/22 (units (unkno wn) date) unknown) (unknown) (no (unknown) (unknown) 02/02/22 (units (unkno wn) date) unknown) (unknown) (no (unknown) (unknown) 02/17/19 8 (units (unk nown) date) spontaneous unknown) (unknown) (no (unknown) (unknown) 02/28/22 (units (unkno wn) date) unknown) (unknown) (no (unknown) (unknown) 03/28/22 (units (unkno wn) date) unknown) (unknown) (no (unknown) (unknown) 04/25/22 (units (unkno wn) date) unknown) (unknown) (no (unknown) (unknown) 05/10/22 (units (unkno wn) date) unknown) (unknown) (no (unknown) (unknown) 09:47 (units (unkno wn) date) unknown) (unknown) (no (unknown) (unknown) 09/02 (units (unkno wn) date) unknown) (unknown) (no (unknown) (unknown) 05/24/22 (units (unkno wn) date) unknown) (unknown) (no (unknown) (unknown) 06/07/22 (units (unkno wn) date) unknown) (unknown) (no (unknown) (unknown) 06/15/22 (units (unkno wn) date) unknown) (unknown) (no (unknown) (unknown) 10w 6d 183 lb (units ( unknown) date) unknown) (unknown) (no (unknown) (unknown) 06/21/22 (units (unkno wn) date) unknown) (unknown) (no (unknown) (unknown) 06/28/22 (units (unkno wn) date) unknown) (unknown) (no (unknown) (unknown) 07/01/22 (units (unkno wn) date) Ultrasound #1 42w unknown) 2d (unknown) (no (unknown) (unknown) 07/17/22 (units (unkno wn) date) unknown) (unknown) (no (unknown) (unknown) 07/17/22] (units (unkn own) date) unknown) (unknown) (no (unknown) (unknown) 14w 6d 186 lb (units ( unknown) date) unknown) (unknown) (no (unknown) (unknown) 18w 6d 189 lb (units ( unknown) date) unknown) (unknown) (no (unknown) (unknown) 22w 4d 198 lb (units ( unknown) date) unknown) (unknown) (no (unknown) (unknown) 26w 4d 206 lb (units ( unknown) date) unknown) (unknown) (no (unknown) (unknown) 26wk4d. Pt with (units (unknown) date) some abdominal unknown) musculoskeletal discomfort, lower and (unknown) (no (unknown) (unknown) 37ydT6D3, IVF (units ( unknown) date) , at unknown) 22wks here for DANYELLE visit. Constipation, no (unknown) (no (unknown) (unknown) 27yo (units (unkn own) date) presents for DANYELLE unknown) visit @ 36wk5d. She reports some normal (unknown) (no (unknown) (unknown) 2wk (units (unkno wn) date) unknown) (unknown) (no (unknown) (unknown) 30w 4d 212 lb (units ( unknown) date) unknown) (unknown) (no (unknown) (unknown) 32w 5d 216 lb (units ( unknown) date) unknown) (unknown) (no (unknown) (unknown) 32wk5d. Trini (units (unknown) date) questions how to unknown) feel contractions, uncertain at times if (unknown) (no (unknown) (unknown) 34w 5d 219 lb (units ( unknown) date) unknown) (unknown) (no (unknown) (unknown) 36w 5d 223 lb (units ( unknown) date) unknown) (unknown) (no (unknown) (unknown) 37w 6d 225 lb (units ( unknown) date) unknown) (unknown) (no (unknown) (unknown) 38w 5d 227 lb (units ( unknown) date) unknown) (unknown) (no (unknown) (unknown) 39w 5d 229 lb (units ( unknown) date) unknown) (unknown) (no (unknown) (unknown) 42w 3d 215 lb (units ( unknown) date) unknown) (unknown) (no (unknown) (unknown) 6) #20 tabs (units (un known) date) 07/11/22 [Rx unknown) Confirmed 07/17/22] (unknown) (no (unknown) (unknown) Abnormal Pap (units (u nknown) date) smear of cervix unknown) (-2013) (unknown) (no (unknown) (unknown) Abnormal lab (units (u nknown) date) values 1st unknown) trimester: discussed (unknown) (no (unknown) (unknown) Add'l Plan (units (unk nown) date) Details unknown) (unknown) (no (unknown) (unknown) Age/Sex: 27 / F (units (unknown) date) Date of Service: unknown) (unknown) (no (unknown) (unknown) Allergies (units (unkn own) date) unknown) (unknown) (no (unknown) (unknown) [place], [place] (units ( unknown) date) [id number] unknown) (unknown) (no (unknown) (unknown) Anesthesia (units (unk nown) date) unknown) (unknown) (no (unknown) (unknown) Aneuploidy (units (unk nown) date) Screening Offered: unknown) Declined (unknown) (no (unknown) (unknown) Anticipated (units (un known) date) course of unknown) care: discussed (unknown) (no (unknown) (unknown) Assessment and (units (unknown) date) Plan unknown) (unknown) (no (unknown) (unknown) Attending Dr: (units ( unknown) date) Kacy Palomo unknown) P.A-C (unknown) (no (unknown) (unknown) BMI 38.0 (units (unkno wn) date) unknown) (unknown) (no (unknown) (unknown) BP 108/62 (units (unkn own) date) unknown) (unknown) (no (unknown) (unknown) (units (unkno wn) date) Plan/Preferences unknown) (unknown) (no (unknown) (unknown) Planning (units (unknown) date) unknown) (unknown) (no (unknown) (unknown) Blood Pressure (units (unknown) date) Location Rt unknown) brachial (unknown) (no (unknown) (unknown) Blood (units (unkno wn) date) transfusions?: yes unknown) (never had but willing to accept) (unknown) (no (unknown) (unknown) Breastfeed Preg (units (unknown) date) Comp Name unknown) (unknown) (no (unknown) (unknown) Cervidil 07/03 (units (unknown) date) p.m. For NST today unknown) since 40 weeks this weekend. GOMEZ 18 wks 2 (unknown) (no (unknown) (unknown) Childbirth (units (unk nown) date) Classes: discussed unknown) (unknown) (no (unknown) (unknown) Current Estimate (units (unknown) date) 06/30/22 Manual unknown) 42w 3d IVF pregnan (unknown) (no (unknown) (unknown) Current (units (unknown) date) History unknown) (unknown) (no (unknown) (unknown) : 1995 (units (unknown) date) Acct:[id number] unknown) (unknown) (no (unknown) (unknown) Date of positive (units (unknown) date) home unknown) test: 10/16/21 (unknown) (no (unknown) (unknown) Date (units (unkno wn) date) unknown) (unknown) (no (unknown) (unknown) Del. Date (units (unkn own) date) GA/Weeks Labor unknown) Lgth Wt Sex Route Outcome Anesthesia Place (unknown) (no (unknown) (unknown) Delivery Date: (units (unknown) date) 02/17/19 Last unknown) Updated by: Juhi Hayes R.N. (unknown) (no (unknown) (unknown) Delv (units (unkno wn) date) unknown) (unknown) (no (unknown) (unknown) Denies Congenital (units (unknown) date) Heart Defect, unknown) Denies Down Syndrome, Denies Muscular Dystrophy, (unknown) (no (unknown) (unknown) Denies Maternal (units (unknown) date) Metabolic Disorder unknown) (EG,TYPE 1 Diabetes, PKU), Denies Patient or (unknown) (no (unknown) (unknown) Denies Neural (units ( unknown) date) Tube Defect unknown) (Meningomyelocele, Spina Bifida, or Anencephaly), (unknown) (no (unknown) (unknown) Denies Sickle (units ( unknown) date) Cell Disease or unknown) Trait (), Denies Hemophilia or other blood (unknown) (no (unknown) (unknown) Denies Epifanio-Sachs (units (unknown) date) (Ashkenazi Quaker, unknown) [place], [place]), Denies Nadja (unknown) (no (unknown) (unknown) Denies other (units (u nknown) date) unknown) (unknown) (no (unknown) (unknown) Denies over the (units (unknown) date) counter unknown) medications, Denies alcohol, Denies illicit drugs and (unknown) (no (unknown) (unknown) Depression: (units (un known) date) discussed unknown) (unknown) (no (unknown) (unknown) Dept at (units (unkno wn) date) . 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), (unknown) (no (unknown) (unknown) Documented By: (units (unknown) date) Kacy Palomo unknown) Varun 07/17/22 0946 (unknown) (no (unknown) (unknown) Draft (units (unkno wn) date) unknown) (unknown) (no (unknown) (unknown) LORY Calculator (units (unknown) date) unknown) (unknown) (no (unknown) (unknown) EGA Weight BP (units ( unknown) date) UGlucose unknown) (unknown) (no (unknown) (unknown) Encounter for in (units (unknown) date) vitro unknown) fertilization () (unknown) (no (unknown) (unknown) Estimated (units (unkn own) date) Delivery Date unknown) Method Current (unknown) (no (unknown) (unknown) Exercise and (units (u nknown) date) activity, unknown) work/environmental /hazards, Sexual activity, X-ray (unknown) (no (unknown) (unknown) Expected Delivery (units (unknown) date) Route/Plan unknown) (unknown) (no (unknown) (unknown) FM returns to a (units (unknown) date) lot of normal unknown) movement. On exam today, FM seen. Advised her, (unknown) (no (unknown) (unknown) Family History (units (unknown) date) (Updated 01/04/22 unknown) @ 23:06 by Paris Davalos) (unknown) (no (unknown) (unknown) Father of Baby: (units (unknown) date) [place]) (unknown) (no (unknown) (unknown) [facility] ([facility]) (unknown) (no (unknown) (unknown) First Trimester (units (unknown) date) Education unknown) Checklist (unknown) (no (unknown) (unknown) (units (unkno wn) date) unknown) (unknown) (no (unknown) (unknown) Genetic Screening (units (unknown) date) + Counseling unknown) (unknown) (no (unknown) (unknown) Genetic Screening (units (unknown) date) unknown) (unknown) (no (unknown) (unknown) Grandfather (units (un known) date) Diabetes mellitus unknown) (unknown) (no (unknown) (unknown) Grandmother (units (un known) date) Breast cancer unknown) (unknown) (no (unknown) (unknown) Grandmother (units (un known) date) Hypertension unknown) (unknown) (no (unknown) (unknown) 2 (units (unkn own) date) Multiple births unknown) (unknown) (no (unknown) (unknown) : 2 (units (unk nown) date) unknown) (unknown) (no (unknown) (unknown) HIV risk (units (unkno wn) date) evaluation: low unknown) risk (unknown) (no (unknown) (unknown) Health Center (units ( unknown) date) Education unknown) (unknown) (no (unknown) (unknown) Health center (units ( unknown) date) information: unknown) nature of practice discussed, visit schedule (unknown) (no (unknown) (unknown) Height 5 ft 3 in (units (unknown) date) unknown) (unknown) (no (unknown) (unknown) Hepatitis C risk (units (unknown) date) evaluation: low unknown) risk (unknown) (no (unknown) (unknown) Here for a DANYELLE (units (unknown) date) visit @ 38wk5d. unknown) She denies any problems. She has felt (unknown) (no (unknown) (unknown) History of (units (unk nown) date) Hepatitis B: No unknown) (unknown) (no (unknown) (unknown) History of (units (unk nown) date) Hepatitis C: No unknown) (unknown) (no (unknown) (unknown) History of LEEP (units (unknown) date) procedure unknown) (unknown) (no (unknown) (unknown) History/Interim (units (unknown) date) Details unknown) (unknown) (no (unknown) (unknown) 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) unknown) (unknown) (no (unknown) (unknown) Montague's (units (u nknown) date) Chorea, Denies unknown) Other inherited genetic or chromosomal disorder, (unknown) (no (unknown) (unknown) Hx # (units (u nknown) date) Pregnancies unknown) Elective abortions (unknown) (no (unknown) (unknown) Hx # Term (units (unkn own) date) Pregnancies unknown) Ectopic pregnancies (unknown) (no (unknown) (unknown) Hx of (units (unkno wn) date) tonsillectomy unknown) () (unknown) (no (unknown) (unknown) IVF for this (units (u nknown) date) , unknown) declined Echo 02/28/22 32 wk growth US 44%, f/u (unknown) (no (unknown) (unknown) Infection History (units (unknown) date) unknown) (unknown) (no (unknown) (unknown) Infection history (units (unknown) date) comments: needs unknown) flu + covid vaccines (unknown) (no (unknown) (unknown) Infectious (units (unk nown) date) Disease Education unknown) (unknown) (no (unknown) (unknown) Infectious (units (unk nown) date) disease exposure: unknown) chicken pox immunity discussed, tuberculosis (unknown) (no (unknown) (unknown) 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) unknown) (unknown) (no (unknown) (unknown) Initial Weight: (units (unknown) date) 180 lb unknown) (unknown) (no (unknown) (unknown) Initials (units (unkno wn) date) unknown) (unknown) (no (unknown) (unknown) Intake Clinical (units (unknown) date) Staff unknown) (unknown) (no (unknown) (unknown) Intake Note: (units (u nknown) date) unknown) (unknown) (no (unknown) (unknown) Intake performed (units (unknown) date) by: Tricia Adan unknown) (unknown) (no (unknown) (unknown) Intake (units (unkno wn) date) unknown) (unknown) (no (unknown) (unknown) Trini and (units (un known) date) Bebeto are here unknown) for a DANYELLE visit @ 39wk5d. She overall feels (unknown) (no (unknown) (unknown) Trini presents (units (unknown) date) today for 1 wk PP unknown) visit s/p C/S. She reports pain is improved (unknown) (no (unknown) (unknown) Trini presents (units (unknown) date) today for routine unknown) OB visit at 37w6d. 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) () (unknown) (no (unknown) (unknown) Marital status: (units (unknown) date) unknown) (unknown) (no (unknown) (unknown) Medical History (units (unknown) date) (Reviewed 07/05/22 unknown) @ 17:54 by Lynne Campuzano MD) (unknown) (no (unknown) (unknown) Medications (units (un known) date) unknown) (unknown) (no (unknown) (unknown) Mother (units (unkno wn) date) Hypertension unknown) (unknown) (no (unknown) (unknown) N 140 15 4wk (units (u nknown) date) unknown) (unknown) (no (unknown) (unknown) N Yes 142 19 girl (units (unknown) date) 4wk unknown) (unknown) (no (unknown) (unknown) N Yes 149 39 (units (u nknown) date) Vertex absent unknown) 0/20% 1wk (unknown) (no (unknown) (unknown) N Yes no 136 40 (units (unknown) date) Vertex absent unknown) 0/long IOL 1 (unknown) (no (unknown) (unknown) N Yes no 140 (units (u nknown) date) Vertex absent 2wk unknown) (unknown) (no (unknown) (unknown) N Yes no 143 22 (units (unknown) date) absent 4wk unknown) (unknown) (no (unknown) (unknown) N Yes no 144 27 (units (unknown) date) absent 4 wk unknown) (unknown) (no (unknown) (unknown) N Yes no 144 (units (u nknown) date) Vertex absent EFW unknown) 44%, GOMEZ 14 (unknown) (no (unknown) (unknown) N Yes no 145 30 (units (unknown) date) absent 4wk unknown) (unknown) (no (unknown) (unknown) N Yes no 148 37 (units (unknown) date) Vertex absent unknown) 0/long order (unknown) (no (unknown) (unknown) N Yes yes 144 38 (units (unknown) date) Vertex absent GBS unknown) negativ (unknown) (no (unknown) (unknown) NF (units (unkno wn) date) unknown) (unknown) (no (unknown) (unknown) No Known Drug (units ( unknown) date) Allergies Allergy unknown) (Verified 07/17/22 09:46) (unknown) (no (unknown) (unknown) No vaginal (units (unk nown) date) bleeding. No unknown) change in vaginal discharge. No fevers. No vaginal (unknown) (no (unknown) (unknown) Notes (units (unkno wn) date) unknown) (unknown) (no (unknown) (unknown) Number of Living (units (unknown) date) Children unknown) (unknown) (no (unknown) (unknown) Number of Weeks (units (unknown) date) Post : 1 unknown) (unknown) (no (unknown) (unknown) Number of (units (unkn own) date) fetuses:: Single unknown) (unknown) (no (unknown) (unknown) Nutrition and (units ( unknown) date) weight gain unknown) counseling: special diet: discussed (unknown) (no (unknown) (unknown) OB Office Visit (units (unknown) date) unknown) (unknown) (no (unknown) (unknown) OB Visit Log (units (u nknown) date) unknown) (unknown) (no (unknown) (unknown) On control (units (unknown) date) at conception?: No unknown) (IVF) (unknown) (no (unknown) (unknown) Other Estimates (units (unknown) date) 06/26/22 LMP unknown) (Certain) 43w 0d (unknown) (no (unknown) (unknown) PFSH (units (unkno wn) date) unknown) (unknown) (no (unknown) (unknown) Para 0 (units (unkno wn) date) Spontaneous unknown) abortions 1 (unknown) (no (unknown) (unknown) Para: 1 (units (unkno wn) date) unknown) (unknown) (no (unknown) (unknown) Partner history (units (unknown) date) of STD: denies hx unknown) (unknown) (no (unknown) (unknown) Partner history (units (unknown) date) of genital herpes: unknown) No (unknown) (no (unknown) (unknown) Partner: Bebeto (units (unknown) date) [place] unknown) (unknown) (no (unknown) (unknown) Past Pregnancies (units (unknown) date) unknown) (unknown) (no (unknown) (unknown) Patient is (units (unk nown) date) feeling well. Some unknown) mild cramping. No bleeding. No fevers. (unknown) (no (unknown) (unknown) Patient is (units (unk nown) date) feeling well. Some unknown) pressure sensation but no other concerns. (unknown) (no (unknown) (unknown) Patient's age 35 (units (unknown) date) years or older as unknown) of estimated date of delivery: No (unknown) (no (unknown) (unknown) Patient: (units (unkno wn) date) Trini Lorenz N unknown) MR#: [id number] (unknown) (no (unknown) (unknown) Personal history (units (unknown) date) of STD: HPV (2015) unknown) (unknown) (no (unknown) (unknown) Personal history (units (unknown) date) of genital herpes: unknown) No (unknown) (no (unknown) (unknown) Position Sitting (units (unknown) date) unknown) (unknown) (no (unknown) (unknown) Post (units (un known) date) unknown) (unknown) (no (unknown) (unknown) History (units (unknown) date) unknown) (unknown) (no (unknown) (unknown) type:: (units (unknown) date) Other Normal unknown) (unknown) (no (unknown) (unknown) (units (unkno wn) date) Education unknown) (unknown) (no (unknown) (unknown) Initial (units (unknown) date) Assessment unknown) (unknown) (no (unknown) (unknown) Specific (units (unknown) date) Issues/Plans unknown) (unknown) (no (unknown) (unknown) Testing: (units (unknown) date) discussed unknown) (unknown) (no (unknown) (unknown) Visit (units (unknown) date) unknown) (unknown) (no (unknown) (unknown) (units (unkno wn) date) education packet: unknown) Child education/plan, symptoms, (unknown) (no (unknown) (unknown) Primary Care (units (u nknown) date) Provider: Britt unknown) Sharmaine (unknown) (no (unknown) (unknown) Primary Ob (units (unk nown) date) Provider: unknown) Lynne Campuzano (unknown) (no (unknown) (unknown) Prior (units (unkno wn) date) GBS-Infected unknown) child: No (unknown) (no (unknown) (unknown) Providers (units (unkn own) date) unknown) (unknown) (no (unknown) (unknown) Pt here for 1wk (units (unknown) date) PP incision check unknown) (unknown) (no (unknown) (unknown) Quad screen nml (units (unknown) date) unknown) (unknown) (no (unknown) (unknown) DANYELLE visit 34wk5d. (units (unknown) date) Feeling well. She unknown) reports sometimes a few days of (unknown) (no (unknown) (unknown) DANYELLE@30wk4d. She (units (unknown) date) denies any unknown) problems. She bought an abdominal binder and (unknown) (no (unknown) (unknown) Rash or viral (units ( unknown) date) illness since last unknown) menstrual period: No (unknown) (no (unknown) (unknown) Reason For Visit (units (unknown) date) unknown) (unknown) (no (unknown) (unknown) Recent travel (units ( unknown) date) outside of unknown) country?: No (unknown) (no (unknown) (unknown) Recurrent (units (unkn own) date) loss or unknown) a stillbirth: No (unknown) (no (unknown) (unknown) Routine (units (unkno wn) date) precautions and unknown) normal physiological changes of (unknown) (no (unknown) (unknown) Routine (units (unkno wn) date) precautions unknown) reviewed. (unknown) (no (unknown) (unknown) Rubella nonimmune (units (unknown) date) immunize unknown) (unknown) (no (unknown) (unknown) S/P LEEP (loop (units (unknown) date) electrosurgical unknown) excision procedure) (-08/2014) (unknown) (no (unknown) (unknown) Safety (units (unkno wn) date) unknown) (unknown) (no (unknown) (unknown) Signed By: (units (unk nown) date) unknown) (unknown) (no (unknown) (unknown) Smoking Status: (units (unknown) date) Never smoker unknown) (unknown) (no (unknown) (unknown) Smoking/Tobacco (units (unknown) date) use: discussed unknown) (unknown) (no (unknown) (unknown) Social History (units (unknown) date) unknown) (unknown) (no (unknown) (unknown) Surgical History (units (unknown) date) (Reviewed 07/07/22 unknown) @ 20:15 by Lynne Campuzano MD) (unknown) (no (unknown) (unknown) Symptoms since (units (unknown) date) LMP: Reports unknown) amenorrhea, nausea, fatigue, urinary frequency, (unknown) (no (unknown) (unknown) TR 174 11 4wk (units ( unknown) date) unknown) (unknown) (no (unknown) (unknown) Tdap status: (units (u nknown) date) immunized unknown) (unknown) (no (unknown) (unknown) Teratogen (units (unkn own) date) Exposures since unknown) LMP/Conception: Denies prescription medications, (unknown) (no (unknown) (unknown) Testing Education (units (unknown) date) unknown) (unknown) (no (unknown) (unknown) Testing education (units (unknown) date) completed: Genetic unknown) testing, group B strep and Cell Free DNA (unknown) (no (unknown) (unknown) This note may (units ( unknown) date) have been all or unknown) partially generated using voice recognition (unknown) (no (unknown) (unknown) Tobacco + (units (unkn own) date) Substance Use unknown) (unknown) (no (unknown) (unknown) Tobacco Status (units (unknown) date) unknown) (unknown) (no (unknown) (unknown) Type(s) of (units (unk nown) date) exercise: none unknown) (unknown) (no (unknown) (unknown) Typically feels (units (unknown) date) in the a.m.. Only unknown) feeling occasionally, nothing routinely. I (unknown) (no (unknown) (unknown) UProtein Movement (units (unknown) date) PreLabor FHR Fndl unknown) Ht Pres Edema Cerv Exam US/Comment Next Appt (unknown) (no (unknown) (unknown) Ultrasound (units (unk nown) date) Details:: Prior 7 unknown) week 3 day ultrasound at IVF on 11/15/21 clinic (unknown) (no (unknown) (unknown) Ultrasound (units (unk nown) date) unknown) (unknown) (no (unknown) (unknown) VB. Feeling good (units (unknown) date) movement. On unknown) discussion, she desire induction of labor (unknown) (no (unknown) (unknown) Vaginal (units (unkno wn) date) unknown) (unknown) (no (unknown) (unknown) Varicella/chicken (units (unknown) date) pox status: unknown) immunized and previous disease (mild case as (unknown) (no (unknown) (unknown) Visit Date: (units (un known) date) 12/08/21 Last unknown) Updated by: Carrie Pichardo MD (unknown) (no (unknown) (unknown) Visit Date: (units (un known) date) 01/05/22 Last unknown) Updated by: Carrie Pichardo MD (unknown) (no (unknown) (unknown) Visit Date: (units (un known) date) 02/02/22 Last unknown) Updated by: Carrie Pichardo MD (unknown) (no (unknown) (unknown) Visit Date: (units (un known) date) 02/28/22 Last unknown) Updated by: Lynne Campuzano MD (unknown) (no (unknown) (unknown) Visit Date: (units (un known) date) 03/28/22 Last unknown) Updated by: Lynne Campuzano MD (unknown) (no (unknown) (unknown) Visit Date: (units (un known) date) 04/25/22 Last unknown) Updated by: Lynne Campuzano MD (unknown) (no (unknown) (unknown) Visit Date: (units (un known) date) 05/10/22 Last unknown) Updated by: Lynne Campuzano MD (unknown) (no (unknown) (unknown) Visit Date: (units (un known) date) 05/24/22 Last unknown) Updated by: Lynne Campuzano MD (unknown) (no (unknown) (unknown) Visit Date: (units (un known) date) 06/07/22 Last unknown) Updated by: Lynne Campuzano MD (unknown) (no (unknown) (unknown) Visit Date: (units (un known) date) 06/15/22 Last unknown) Updated by: Kacy Palomo P.A-C (unknown) (no (unknown) (unknown) Visit Date: (units (un known) date) 06/21/22 Last unknown) Updated by: Lynne Campuzano MD (unknown) (no (unknown) (unknown) Visit Date: (units (un known) date) 06/28/22 Last unknown) Updated by: Lynne Campuzano MD (unknown) (no (unknown) (unknown) Visit Reasons: (units (unknown) date) 1wk PP [place] pt unknown) rsd due to illness +surg (unknown) (no (unknown) (unknown) Vitals (units (unkno wn) date) unknown) (unknown) (no (unknown) (unknown) Vitamins and (units (u nknown) date) iron, Diet and unknown) weight gain, Fish and mercury intake, Caffeine use, (unknown) (no (unknown) (unknown) WG (units (unkno wn) date) unknown) (unknown) (no (unknown) (unknown) Weight 215 lb (units ( unknown) date) unknown) (unknown) (no (unknown) (unknown) Millis teeth (units (u nknown) date) extracted () unknown) (unknown) (no (unknown) (unknown) Zika virus (units (unk nown) date) exposure: No unknown) (unknown) (no (unknown) (unknown) after she (units (unkn own) date) hydrates. No unknown) persistent cramping, ctx, LOF or VB. Discussed GBS (unknown) (no (unknown) (unknown) alcohol intake: (units (unknown) date) former unknown) (unknown) (no (unknown) (unknown) amh (units (unkno wn) date) unknown) (unknown) (no (unknown) (unknown) and is only (units (un known) date) taking ibuprofen unknown) as needed. She did not like how the narcotic made (unknown) (no (unknown) (unknown) and office visits (units (unknown) date) unknown) (unknown) (no (unknown) (unknown) anemia in (units (unkn own) date) and is unknown) continuing to take PNV with iron. She reports that (unknown) (no (unknown) (unknown) anxiety. She (units (u nknown) date) reports normal unknown) urination and reports some loose stools so is going (unknown) (no (unknown) (unknown) anyone in either (units (unknown) date) family with: unknown) (unknown) (no (unknown) (unknown) at 40 weeks if no (units (unknown) date) labor prior. Will unknown) schedule and call her with a date. (unknown) (no (unknown) (unknown) baby's father had (units (unknown) date) a child with unknown) defects not listed above and Denies Other (unknown) (no (unknown) (unknown) bleeding. She is (units (unknown) date) feeling baby move. unknown) Routine precautions reviewed. (unknown) (no (unknown) (unknown) caffeine: Yes (units ( unknown) date) (aware of 200mg unknown) daily limit) (unknown) (no (unknown) (unknown) carbon monox (units (u nknown) date) detector in home: unknown) Yes (unknown) (no (unknown) (unknown) child) (units (unkno wn) date) unknown) (unknown) (no (unknown) (unknown) concerns with (units ( unknown) date) COVID infection unknown) and and urged patient to consider (unknown) (no (unknown) (unknown) consistent with (units (unknown) date) dates. unknown) (unknown) (no (unknown) (unknown) cramping, vaginal (units (unknown) date) bleeding or unknown) leakage of fluid. Doing her Glucola today. (unknown) (no (unknown) (unknown) current (units (unkno wn) date) occupational unknown) exposures/hazards: No (unknown) (no (unknown) (unknown) cy (units (unkno wn) date) unknown) (unknown) (no (unknown) (unknown) cytotec (units (unkno wn) date) unknown) (unknown) (no (unknown) (unknown) daily servings (units (unknown) date) fruits/ve-4 unknown) (unknown) (no (unknown) (unknown) declined referral (units (unknown) date) for unknown) echocardiogram for IVF . (unknown) (no (unknown) (unknown) diminishes with (units (unknown) date) elevation. She unknown) reports milk back and tailbone discomfort and (unknown) (no (unknown) (unknown) discussed (units (unkn own) date) increased fiber in unknown) diet. May use MiraLax. No uterine type cramping, (unknown) (no (unknown) (unknown) discussed with (units (unknown) date) the patient. unknown) Patient is not COVID vaccinated. Discussed (unknown) (no (unknown) (unknown) disorders, Denies (units (unknown) date) Cystic Fibrosis, unknown) Denies Mental Retardation/Autism , Denies (unknown) (no (unknown) (unknown) do you feel safe (units (unknown) date) at home: Yes unknown) (unknown) (no (unknown) (unknown) docusate sodium (units (unknown) date) 100 mg capsule 200 unknown) mg PO DAILY #20 caps 07/11/22 [Rx Confirmed (unknown) (no (unknown) (unknown) drops of urine, (units (unknown) date) does feel it is unknown) from the bladder. No vaginal leakage of fluid (unknown) (no (unknown) (unknown) during the past (units (unknown) date) year weight has: unknown) decreased > 10 lbs (lost 30 lbs) (unknown) (no (unknown) (unknown) e (units (unkno wn) date) unknown) (unknown) (no (unknown) (unknown) eating out: (units (un known) date) rarely or never unknown) (unknown) (no (unknown) (unknown) ed 1wk (units (unkno wn) date) unknown) (unknown) (no (unknown) (unknown) education level: (units (unknown) date) college unknown) (unknown) (no (unknown) (unknown) exposure (units (unkno wn) date) discussed, CMV unknown) discussed, Toxoplasmosis precautions, Listeriosis (unknown) (no (unknown) (unknown) exposure, (units (unkn own) date) Medication use, unknown) Sauna/hot tub use, Dental care and Travel (unknown) (no (unknown) (unknown) feeling some less (units (unknown) date) movement, but she unknown) does kick counts and gets enough kicks, then (unknown) (no (unknown) (unknown) feeling some upper (units (unknown) date) discomfort when unknown) standing, but some muscle support tape to try (unknown) (no (unknown) (unknown) feels better with (units (unknown) date) using this when on unknown) her feet. Feeling good movement. No (unknown) (no (unknown) (unknown) felt any further (units (unknown) date) contractions. No unknown) LOF or VB. Feeling good movement. She (unknown) (no (unknown) (unknown) movement (units (unknown) date) and denies VB, unknown) LOF. Growth US showed normal GOMEZ 18.6 and growth (unknown) (no (unknown) (unknown) movement (units (unknown) date) daily. GBS screen unknown) collected. She desired a cervical check. Will (unknown) (no (unknown) (unknown) fire extinguisher (units (unknown) date) in home: No unknown) (unknown) (no (unknown) (unknown) firearms in home: (units (unknown) date) No unknown) (unknown) (no (unknown) (unknown) frequency: does (units (unknown) date) not exercise unknown) (unknown) (no (unknown) (unknown) frequent, then to (units (unknown) date) call. Occasionally unknown) feeling vaginal pressure when she sits, (unknown) (no (unknown) (unknown) getting the (units (un known) date) vaccine in unknown) . (unknown) (no (unknown) (unknown) growth US ordered (units (unknown) date) @36wks unknown) (unknown) (no (unknown) (unknown) have occurred. If (units (unknown) date) there are any unknown) questions, please contact the Medical Records (unknown) (no (unknown) (unknown) having a girl (units ( unknown) date) unknown) (unknown) (no (unknown) (unknown) her feel. She (units ( unknown) date) reports her lochia unknown) is diminishing appropriately. She had severe (unknown) (no (unknown) (unknown) her in for NST. (units (unknown) date) Feels some cramps unknown) in the morning after wakening, then results (unknown) (no (unknown) (unknown) her mood is good. (units (unknown) date) She reports crying unknown) one or 2 times intermittently, but does (unknown) (no (unknown) (unknown) here. No other (units (unknown) date) problems. Feeling unknown) good movement. No contractions, (unknown) (no (unknown) (unknown) household (units (unkn own) date) members: spouse unknown) (unknown) (no (unknown) (unknown) housing: house (units (unknown) date) unknown) (unknown) (no (unknown) (unknown) ibuprofen 600 mg (units (unknown) date) tablet 600 mg PO unknown) Q6HR PRN pain #60 tabs 07/11/22 [Rx Confirmed (unknown) (no (unknown) (unknown) if she does ever (units (unknown) date) feel significantly unknown) less, then definitely call and will bring (unknown) (no (unknown) (unknown) in the 56%. The (units (unknown) date) cervical canal was unknown) not well seen. She reports [place] and (unknown) (no (unknown) (unknown) irritability, (units ( unknown) date) bloating and other unknown) (headaches + constipation) (unknown) (no (unknown) (unknown) is scheduled for (units (unknown) date) elective term IOL unknown) next week at 40 weeks, if no labor. For (unknown) (no (unknown) (unknown) leakage of fluid, (units (unknown) date) vaginal bleeding unknown) or abnormal vaginal discharge. Feeling (unknown) (no (unknown) (unknown) marital status: (units (unknown) date) unknown) (unknown) (no (unknown) (unknown) may occur. (units (unk nown) date) Occasional unknown) wrong-word or 'sound-alike' substitutions may have (unknown) (no (unknown) (unknown) medication (units (unk nown) date) options during unknown) labor. Tdap given today. (unknown) (no (unknown) (unknown) musculoskeletal (units (unknown) date) discomforts of unknown) , especially by the end of the day. No (unknown) (no (unknown) (unknown) needed. (units (unkno wn) date) unknown) (unknown) (no (unknown) (unknown) normal Glucola, (units (unknown) date) hemoglobin was unknown) 11.8. Questions answered regarding pain (unknown) (no (unknown) (unknown) not feel (units (unkno wn) date) depressed or unknown) anxious. Discussed warning s/sx of PP depression and (unknown) (no (unknown) (unknown) noted cramping, (units (unknown) date) contractions, unknown) vaginal bleeding or leakage of fluid. She had a (unknown) (no (unknown) (unknown) nothing (units (unkno wn) date) persistent. unknown) Feeling good movement. Occasionally leaking few (unknown) (no (unknown) (unknown) number of (units (unkn own) date) children: 0 unknown) (unknown) (no (unknown) (unknown) occasional (units (unk nown) date) irregular stronger unknown) contractions, but nothing regular. Reviewed labor (unknown) (no (unknown) (unknown) occupational (units (u nknown) date) status: unemployed unknown) (unknown) (no (unknown) (unknown) occurred due to (units (unknown) date) the inherent unknown) limitations of voice recognition software. Please (unknown) (no (unknown) (unknown) or bleeding. No (units (unknown) date) persistent unknown) cramping. Ultrasound for EFW today due to IVF (unknown) (no (unknown) (unknown) other problems. (units (unknown) date) Overall sleeping unknown) well. She felt a little cramping which (unknown) (no (unknown) (unknown) other problems. (units (unknown) date) Tried 1 Colace unknown) daily without improvement. Discussed increase (unknown) (no (unknown) (unknown) otherwise when (units (unknown) date) sitting still. No unknown) headache, scotomata or nausea. She is not (unknown) (no (unknown) (unknown) oxycodone 5 mg (units (unknown) date) tablet See Rx unknown) Instructions .Route .COMPLEX PRN Pain, Moderate (4 (unknown) (no (unknown) (unknown) pain, points to (units (unknown) date) over uterus, unknown) pinching pain when she bends over. No pain (unknown) (no (unknown) (unknown) pets and animals: (units (unknown) date) Yes (2 dogs) unknown) (unknown) (no (unknown) (unknown) plans to go back (units (unknown) date) to using her belly unknown) band for support. (unknown) (no (unknown) (unknown) . EFW 44 (units (unknown) date) percentile, 2022 unknown) g, 4 lb 7 oz. GOMEZ 14.6. (unknown) (no (unknown) (unknown) prenat.vits,emilia,m (units (unknown) date) [id number] 1 unknown) tab PO DAILY 11/27/21 [History Confirmed (unknown) (no (unknown) (unknown) prevention and (units (unknown) date) Rubella unknown) Immunization (unknown) (no (unknown) (unknown) read the note (units ( unknown) date) carefully and unknown) recognize, using context, where these substitutions (unknown) (no (unknown) (unknown) recheck a growth (units (unknown) date) ultrasound, unknown) ordered, for IVF . (unknown) (no (unknown) (unknown) resolve, only has (units (unknown) date) felt an occasional unknown) contraction. No LOF or VB. Feeling good (unknown) (no (unknown) (unknown) reviewed had a (units (unknown) date) palpate for unknown) contractions, and if having every 10 minutes or more (unknown) (no (unknown) (unknown) reviewed, (units (unkn own) date) coverage 24 hours unknown) a day and participation of father in care (unknown) (no (unknown) (unknown) routine (units ( unknown) date) movement. She will unknown) do her Glucola/H/H next visit. Offered, (unknown) (no (unknown) (unknown) s/sx and when to (units (unknown) date) call. GBS was unknown) negative. No concerns. F/u in 1 week or as (unknown) (no (unknown) (unknown) screen next (units (un known) date) visit. unknown) (unknown) (no (unknown) (unknown) seatbelt use: (units ( unknown) date) always unknown) (unknown) (no (unknown) (unknown) second hand (units (un known) date) exposure: No unknown) (unknown) (no (unknown) (unknown) she is feeling (units ( unknown) date) [place] or unknown) the baby, when feels tight in the upper abdomen. (unknown) (no (unknown) (unknown) software. 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 No LOF or (unknown) (no (unknown) (unknown) special donna (units ( unknown) date) needs: No unknown) (unknown) (no (unknown) (unknown) substance use (units ( unknown) date) type: does not use unknown) (unknown) (no (unknown) (unknown) to 2 daily. After (units (unknown) date) review, may need unknown) to increase water intake recently, and (unknown) (no (unknown) (unknown) to decrease of (units (unknown) date) stop the stool unknown) softeners. Her edema is improving overall and (unknown) (no (unknown) (unknown) to use as an (units (u nknown) date) abdominal binder. unknown) Will try to fit her for an abdominal binder (unknown) (no (unknown) (unknown) [facility]: [facility] ([facility] (unknown) (no (unknown) (unknown) water heater temp (units (unknown) date) set < 120 deg: No unknown) (unsure) (unknown) (no (unknown) (unknown) weeks ago, (units (unk nown) date) deferred today. unknown) (unknown) (no (unknown) (unknown) well, but getting (units (unknown) date) general unknown) discomfort. She is feeling some right upper abdominal (unknown) (no (unknown) (unknown) well-balanced (units ( unknown) date) diet: about half unknown) the time (unknown) (no (unknown) (unknown) working smoke (units ( unknown) date) detector in home: unknown) Yes Result panel 389 (unknown) (no (unknown) (unknown) (no value) (units (unk nown) date) unknown) (unknown) (no (unknown) (unknown) (+18 lb) 102/68 N (units (unknown) date) unknown) (unknown) (no (unknown) (unknown) (+26 lb) 128/72 N (units (unknown) date) unknown) (unknown) (no (unknown) (unknown) (+3 lb) 110/70 N (units (unknown) date) unknown) (unknown) (no (unknown) (unknown) (+32 lb) 110/72 1 (units (unknown) date) unknown) (unknown) (no (unknown) (unknown) (+36 lb) 114/64 N (units (unknown) date) unknown) (unknown) (no (unknown) (unknown) (+39 lb) 104/70 (units (unknown) date) TR unknown) (unknown) (no (unknown) (unknown) (+43 lb) 122/68 (units (unknown) date) TR unknown) (unknown) (no (unknown) (unknown) (+45 lb) 116/68 (units (unknown) date) TR unknown) (unknown) (no (unknown) (unknown) (+47 lb) 122/72 N (units (unknown) date) unknown) (unknown) (no (unknown) (unknown) (+49 lb) 128/70 N (units (unknown) date) unknown) (unknown) (no (unknown) (unknown) (+6 lb) 104/66 TR (units (unknown) date) unknown) (unknown) (no (unknown) (unknown) (+9 lb) 108/78 N (units (unknown) date) unknown) (unknown) (no (unknown) (unknown) Genetic (units (unkn own) date) Screening/Teratolo unknown) gy Counseling - Includes patient, baby's father, or (unknown) (no (unknown) (unknown) -?-?-?-?-?-?-?-?- (units (unknown) date) ?-?-?-? unknown) (unknown) (no (unknown) (unknown) [id number] (units (unkno wn) date) unknown) (unknown) (no (unknown) (unknown) 12/08/2021 (units (unk nown) date) Caceres viable unknown) intrauterine gestation size equal to dates (unknown) (no (unknown) (unknown) 12/08/21 (units (unkno wn) date) unknown) (unknown) (no (unknown) (unknown) 01/05/22 (units (unkno wn) date) unknown) (unknown) (no (unknown) (unknown) 02/02/22 (units (unkno wn) date) unknown) (unknown) (no (unknown) (unknown) 02/17/19 8 (units (unk nown) date) spontaneous unknown) (unknown) (no (unknown) (unknown) 02/28/22 (units (unkno wn) date) unknown) (unknown) (no (unknown) (unknown) 03/28/22 (units (unkno wn) date) unknown) (unknown) (no (unknown) (unknown) 04/25/22 (units (unkno wn) date) unknown) (unknown) (no (unknown) (unknown) 05/10/22 (units (unkno wn) date) unknown) (unknown) (no (unknown) (unknown) 09/02 (units (unkno wn) date) unknown) (unknown) (no (unknown) (unknown) 05/24/22 (units (unkno wn) date) unknown) (unknown) (no (unknown) (unknown) 06/07/22 (units (unkno wn) date) unknown) (unknown) (no (unknown) (unknown) 06/15/22 (units (unkno wn) date) unknown) (unknown) (no (unknown) (unknown) 10w 6d 183 lb (units ( unknown) date) unknown) (unknown) (no (unknown) (unknown) 06/21/22 (units (unkno wn) date) unknown) (unknown) (no (unknown) (unknown) 06/28/22 (units (unkno wn) date) unknown) (unknown) (no (unknown) (unknown) 07/01/22 (units (unkno wn) date) Ultrasound #1 46w unknown) 4d (unknown) (no (unknown) (unknown) 08/16/22 (units (unkno wn) date) unknown) (unknown) (no (unknown) (unknown) 08/16/22] (units (unkn own) date) unknown) (unknown) (no (unknown) (unknown) 14w 6d 186 lb (units ( unknown) date) unknown) (unknown) (no (unknown) (unknown) 15:17 (units (unkno wn) date) unknown) (unknown) (no (unknown) (unknown) 16 (units (unkno wn) date) unknown) (unknown) (no (unknown) (unknown) 18w 6d 189 lb (units ( unknown) date) unknown) (unknown) (no (unknown) (unknown) 22w 4d 198 lb (units ( unknown) date) unknown) (unknown) (no (unknown) (unknown) 26w 4d 206 lb (units ( unknown) date) unknown) (unknown) (no (unknown) (unknown) 26wk4d. Pt with (units (unknown) date) some abdominal unknown) musculoskeletal discomfort, lower and (unknown) (no (unknown) (unknown) [id number], IVF (units ( unknown) date) , at unknown) 22wks here for DANYELLE visit. Constipation, no (unknown) (no (unknown) (unknown) 27yo (units (unkn own) date) presents for DANYELLE unknown) visit @ 36wk5d. She reports some normal (unknown) (no (unknown) (unknown) 2wk (units (unkno wn) date) unknown) (unknown) (no (unknown) (unknown) 30w 4d 212 lb (units ( unknown) date) unknown) (unknown) (no (unknown) (unknown) 32w 5d 216 lb (units ( unknown) date) unknown) (unknown) (no (unknown) (unknown) 32wk5d. Trini (units (unknown) date) questions how to unknown) feel contractions, uncertain at times if (unknown) (no (unknown) (unknown) 34w 5d 219 lb (units ( unknown) date) unknown) (unknown) (no (unknown) (unknown) 36w 5d 223 lb (units ( unknown) date) unknown) (unknown) (no (unknown) (unknown) 37w 6d 225 lb (units ( unknown) date) unknown) (unknown) (no (unknown) (unknown) 38w 5d 227 lb (units ( unknown) date) unknown) (unknown) (no (unknown) (unknown) 39w 5d 229 lb (units ( unknown) date) unknown) (unknown) (no (unknown) (unknown) 6) #20 tabs (units (un known) date) 07/11/22 [Rx unknown) Confirmed 08/16/22] (unknown) (no (unknown) (unknown) Abnormal Pap (units (u nknown) date) smear of cervix unknown) (-2013) (unknown) (no (unknown) (unknown) Abnormal lab (units (u nknown) date) values 1st unknown) trimester: discussed (unknown) (no (unknown) (unknown) Add'l Plan (units (unk nown) date) Details unknown) (unknown) (no (unknown) (unknown) Age/Sex: 27 / F (units (unknown) date) Date of Service: unknown) (unknown) (no (unknown) (unknown) Allergies (units (unkn own) date) unknown) (unknown) (no (unknown) (unknown) [place], [place] (units ( unknown) date) [id number] unknown) (unknown) (no (unknown) (unknown) Anesthesia (units (unk nown) date) unknown) (unknown) (no (unknown) (unknown) Aneuploidy (units (unk nown) date) Screening Offered: unknown) Declined (unknown) (no (unknown) (unknown) Anticipated (units (un known) date) course of unknown) care: discussed (unknown) (no (unknown) (unknown) Assessment and (units (unknown) date) Plan unknown) (unknown) (no (unknown) (unknown) Attending Dr: Lynne (units (unknown) date) Sirisha Campuzano MD unknown) (unknown) (no (unknown) (unknown) BMI 35.7 (units (unkno wn) date) unknown) (unknown) (no (unknown) (unknown) BP 118/62 (units (unkn own) date) unknown) (unknown) (no (unknown) (unknown) (units (unkno wn) date) Plan/Preferences unknown) (unknown) (no (unknown) (unknown) Planning (units (unknown) date) unknown) (unknown) (no (unknown) (unknown) Blood Pressure (units (unknown) date) Location Rt unknown) brachial (unknown) (no (unknown) (unknown) Blood (units (unkno wn) date) transfusions?: yes unknown) (never had but willing to accept) (unknown) (no (unknown) (unknown) Breastfeed Preg (units (unknown) date) Comp Name unknown) (unknown) (no (unknown) (unknown) Cervidil 07/03 (units (unknown) date) p.m. For NST today unknown) since 40 weeks this weekend. GOMEZ 18 wks 2 (unknown) (no (unknown) (unknown) Childbirth (units (unk nown) date) Classes: discussed unknown) (unknown) (no (unknown) (unknown) Current Estimate (units (unknown) date) 06/30/22 Manual unknown) 46w 5d IVF pregnan (unknown) (no (unknown) (unknown) Current (units (unknown) date) History unknown) (unknown) (no (unknown) (unknown) : 1995 (units (unknown) date) Acct:[id number] unknown) (unknown) (no (unknown) (unknown) Date of positive (units (unknown) date) home unknown) test: 10/16/21 (unknown) (no (unknown) (unknown) Date (units (unkno wn) date) unknown) (unknown) (no (unknown) (unknown) Del. Date (units (unkn own) date) GA/Weeks Labor unknown) Lgth Wt Sex Route Outcome Anesthesia Place (unknown) (no (unknown) (unknown) Delivery Date: (units (unknown) date) 02/17/19 Last unknown) Updated by: Juhi Hayes R.N. (unknown) (no (unknown) (unknown) Delivery Date: (units (unknown) date) 07/09/22 unknown) (unknown) (no (unknown) (unknown) Delv (units (unkno wn) date) unknown) (unknown) (no (unknown) (unknown) Denies Congenital (units (unknown) date) Heart Defect, unknown) Denies Down Syndrome, Denies Muscular Dystrophy, (unknown) (no (unknown) (unknown) Denies Maternal (units (unknown) date) Metabolic Disorder unknown) (EG,TYPE 1 Diabetes, PKU), Denies Patient or (unknown) (no (unknown) (unknown) Denies Neural (units ( unknown) date) Tube Defect unknown) (Meningomyelocele, Spina Bifida, or Anencephaly), (unknown) (no (unknown) (unknown) Denies Sickle (units ( unknown) date) Cell Disease or unknown) Trait (), Denies Hemophilia or other blood (unknown) (no (unknown) (unknown) Denies Epifanio-Sachs (units (unknown) date) (Ashkenazi Quaker, unknown) [place], [place]), Denies Nadja (unknown) (no (unknown) (unknown) Denies other (units (u nknown) date) unknown) (unknown) (no (unknown) (unknown) Denies over the (units (unknown) date) counter unknown) medications, Denies alcohol, Denies illicit drugs and (unknown) (no (unknown) (unknown) Depression: (units (un known) date) discussed unknown) (unknown) (no (unknown) (unknown) Dept at (units (unkno wn) date) . 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), (unknown) (no (unknown) (unknown) Documented By: (units (unknown) date) Lynne Campuzano unknown) 08/16/22 15 (unknown) (no (unknown) (unknown) Draft (units (unkno wn) date) unknown) (unknown) (no (unknown) (unknown) LORY Calculator (units (unknown) date) unknown) (unknown) (no (unknown) (unknown) EGA Weight BP (units ( unknown) date) UGlucose unknown) (unknown) (no (unknown) (unknown) Encounter for in (units (unknown) date) vitro unknown) fertilization () (unknown) (no (unknown) (unknown) Estimated (units (unkn own) date) Delivery Date unknown) Method Current (unknown) (no (unknown) (unknown) Exercise and (units (u nknown) date) activity, unknown) work/environmental /hazards, Sexual activity, X-ray (unknown) (no (unknown) (unknown) Expected Delivery (units (unknown) date) Route/Plan unknown) (unknown) (no (unknown) (unknown) FM returns to a (units (unknown) date) lot of normal unknown) movement. On exam today, FM seen. Advised her, (unknown) (no (unknown) (unknown) Family History (units (unknown) date) (Updated 01/04/22 unknown) @ 23:06 by Paris Davalos) (unknown) (no (unknown) (unknown) Father of Baby: (units (unknown) date) Gerda unknown) (unknown) (no (unknown) (unknown) Feeding: breast (units (unknown) date) and bottle unknown) (unknown) (no (unknown) (unknown) [facility]) (unknown) (no (unknown) (unknown) First Trimester (units (unknown) date) Education unknown) Checklist (unknown) (no (unknown) (unknown) (units (unkno wn) date) unknown) (unknown) (no (unknown) (unknown) Genetic Screening (units (unknown) date) + Counseling unknown) (unknown) (no (unknown) (unknown) Genetic Screening (units (unknown) date) unknown) (unknown) (no (unknown) (unknown) Grandfather (units (un known) date) Diabetes mellitus unknown) (unknown) (no (unknown) (unknown) Grandmother (units (un known) date) Breast cancer unknown) (unknown) (no (unknown) (unknown) Grandmother (units (un known) date) Hypertension unknown) (unknown) (no (unknown) (unknown) 2 (units (unkn own) date) Multiple births unknown) (unknown) (no (unknown) (unknown) : 2 (units (unk nown) date) unknown) (unknown) (no (unknown) (unknown) HIV risk (units (unkno wn) date) evaluation: low unknown) risk (unknown) (no (unknown) (unknown) Health Center (units ( unknown) date) Education unknown) (unknown) (no (unknown) (unknown) Health center (units ( unknown) date) information: unknown) nature of practice discussed, visit schedule (unknown) (no (unknown) (unknown) Height 5 ft 3 in (units (unknown) date) unknown) (unknown) (no (unknown) (unknown) Hepatitis C risk (units (unknown) date) evaluation: low unknown) risk (unknown) (no (unknown) (unknown) Here for a DANYELLE (units (unknown) date) visit @ 38wk5d. unknown) She denies any problems. She has felt (unknown) (no (unknown) (unknown) History of (units (unk nown) date) Hepatitis B: No unknown) (unknown) (no (unknown) (unknown) History of (units (unk nown) date) Hepatitis C: No unknown) (unknown) (no (unknown) (unknown) History of LEEP (units (unknown) date) procedure unknown) (unknown) (no (unknown) (unknown) History/Interim (units (unknown) date) Details unknown) (unknown) (no (unknown) (unknown) 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) unknown) (unknown) (no (unknown) (unknown) Montague's (units (u nknown) date) Chorea, Denies unknown) Other inherited genetic or chromosomal disorder, (unknown) (no (unknown) (unknown) Hx # (units (u nknown) date) Pregnancies unknown) Elective abortions (unknown) (no (unknown) (unknown) Hx # Term (units (unkn own) date) Pregnancies unknown) Ectopic pregnancies (unknown) (no (unknown) (unknown) Hx of (units (unkno wn) date) tonsillectomy unknown) () (unknown) (no (unknown) (unknown) IVF for this (units (u nknown) date) , unknown) declined Echo 02/28/22 32 wk growth US 44%, f/u (unknown) (no (unknown) (unknown) (units (u nknown) date) Weight: 9 lbs 11.5 unknown) oz (unknown) (no (unknown) (unknown) Infant Longest (units (unknown) date) Sleep: 6 hrs unknown) (unknown) (no (unknown) (unknown) Recent (units ( unknown) date) Weight: 9 lbs 11.5 unknown) oz (unknown) (no (unknown) (unknown) 's Name: (units (unknown) date) Jami unknown) (unknown) (no (unknown) (unknown) 's Sex: (units ( unknown) date) Female unknown) (unknown) (no (unknown) (unknown) Infection History (units (unknown) date) unknown) (unknown) (no (unknown) (unknown) Infection history (units (unknown) date) comments: needs unknown) flu + covid vaccines (unknown) (no (unknown) (unknown) Infectious (units (unk nown) date) Disease Education unknown) (unknown) (no (unknown) (unknown) Infectious (units (unk nown) date) disease exposure: unknown) chicken pox immunity discussed, tuberculosis (unknown) (no (unknown) (unknown) 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) unknown) (unknown) (no (unknown) (unknown) Initial Weight: (units (unknown) date) 180 lb unknown) (unknown) (no (unknown) (unknown) Initials (units (unkno wn) date) unknown) (unknown) (no (unknown) (unknown) Intake Clinical (units (unknown) date) Staff unknown) (unknown) (no (unknown) (unknown) Intake Note: (units (u nknown) date) unknown) (unknown) (no (unknown) (unknown) Intake performed (units (unknown) date) by: unknown) Elba Hopson (unknown) (no (unknown) (unknown) Intake (units (unkno wn) date) unknown) (unknown) (no (unknown) (unknown) Trini and (units (un known) date) Bebeto are here unknown) for a DANYELLE visit @ 39wk5d. She overall feels (unknown) (no (unknown) (unknown) Trini presents (units (unknown) date) today for routine unknown) OB visit at 37w6d. 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) () (unknown) (no (unknown) (unknown) Marital status: (units (unknown) date) unknown) (unknown) (no (unknown) (unknown) Medical History (units (unknown) date) (Reviewed 07/05/22 unknown) @ 17:54 by Lynne Campuzano MD) (unknown) (no (unknown) (unknown) Medications (units (un known) date) unknown) (unknown) (no (unknown) (unknown) Mother (units (unkno wn) date) Hypertension unknown) (unknown) (no (unknown) (unknown) N 140 15 4wk (units (u nknown) date) unknown) (unknown) (no (unknown) (unknown) N Yes 142 19 girl (units (unknown) date) 4wk unknown) (unknown) (no (unknown) (unknown) N Yes 149 39 (units (u nknown) date) Vertex absent unknown) 0/20% 1wk (unknown) (no (unknown) (unknown) N Yes no 136 40 (units (unknown) date) Vertex absent unknown) 0/long IOL 1 (unknown) (no (unknown) (unknown) N Yes no 140 (units (u nknown) date) Vertex absent 2wk unknown) (unknown) (no (unknown) (unknown) N Yes no 143 22 (units (unknown) date) absent 4wk unknown) (unknown) (no (unknown) (unknown) N Yes no 144 27 (units (unknown) date) absent 4 wk unknown) (unknown) (no (unknown) (unknown) N Yes no 144 (units (u nknown) date) Vertex absent EFW unknown) 44%, GOMEZ 14 (unknown) (no (unknown) (unknown) N Yes no 145 30 (units (unknown) date) absent 4wk unknown) (unknown) (no (unknown) (unknown) N Yes no 148 37 (units (unknown) date) Vertex absent unknown) 0/long order (unknown) (no (unknown) (unknown) N Yes yes 144 38 (units (unknown) date) Vertex absent GBS unknown) negativ (unknown) (no (unknown) (unknown) NF (units (unkno wn) date) unknown) (unknown) (no (unknown) (unknown) No Known Drug (units ( unknown) date) Allergies Allergy unknown) (Verified 08/16/22 15:16) (unknown) (no (unknown) (unknown) No vaginal (units (unk nown) date) bleeding. No unknown) change in vaginal discharge. No fevers. No vaginal (unknown) (no (unknown) (unknown) Notes (units (unkno wn) date) unknown) (unknown) (no (unknown) (unknown) Number of Living (units (unknown) date) Children unknown) (unknown) (no (unknown) (unknown) Number of Weeks (units (unknown) date) Post : 6 unknown) (unknown) (no (unknown) (unknown) Number of (units (unkn own) date) fetuses:: Single unknown) (unknown) (no (unknown) (unknown) Nutrition and (units ( unknown) date) weight gain unknown) counseling: special diet: discussed (unknown) (no (unknown) (unknown) OB Office Visit (units (unknown) date) unknown) (unknown) (no (unknown) (unknown) OB Visit Log (units (u nknown) date) unknown) (unknown) (no (unknown) (unknown) On control (units (unknown) date) at conception?: No unknown) (IVF) (unknown) (no (unknown) (unknown) Other Estimates (units (unknown) date) 06/26/22 LMP unknown) (Certain) 47w 2d (unknown) (no (unknown) (unknown) PFSH (units (unkno wn) date) unknown) (unknown) (no (unknown) (unknown) Para 1 (units (unkno wn) date) Spontaneous unknown) abortions 1 (unknown) (no (unknown) (unknown) Para: 2 (units (unkno wn) date) unknown) (unknown) (no (unknown) (unknown) Partner history (units (unknown) date) of STD: denies hx unknown) (unknown) (no (unknown) (unknown) Partner history (units (unknown) date) of genital herpes: unknown) No (unknown) (no (unknown) (unknown) Partner: Bebeto (units (unknown) date) [place] unknown) (unknown) (no (unknown) (unknown) Past Pregnancies (units (unknown) date) unknown) (unknown) (no (unknown) (unknown) Patient is (units (unk nown) date) feeling well. Some unknown) mild cramping. No bleeding. No fevers. (unknown) (no (unknown) (unknown) Patient is (units (unk nown) date) feeling well. Some unknown) pressure sensation but no other concerns. (unknown) (no (unknown) (unknown) Patient's age 35 (units (unknown) date) years or older as unknown) of estimated date of delivery: No (unknown) (no (unknown) (unknown) Patient: (units (unkno wn) date) Trini Lorenz N unknown) MR#: [id number] (unknown) (no (unknown) (unknown) Personal history (units (unknown) date) of STD: HPV (2015) unknown) (unknown) (no (unknown) (unknown) Personal history (units (unknown) date) of genital herpes: unknown) No (unknown) (no (unknown) (unknown) Position Sitting (units (unknown) date) unknown) (unknown) (no (unknown) (unknown) Post (units (un known) date) unknown) (unknown) (no (unknown) (unknown) History (units (unknown) date) unknown) (unknown) (no (unknown) (unknown) type:: (units (unknown) date) Other Normal unknown) (unknown) (no (unknown) (unknown) (units (unkno wn) date) Education unknown) (unknown) (no (unknown) (unknown) Initial (units (unknown) date) Assessment unknown) (unknown) (no (unknown) (unknown) Specific (units (unknown) date) Issues/Plans unknown) (unknown) (no (unknown) (unknown) Testing: (units (unknown) date) discussed unknown) (unknown) (no (unknown) (unknown) Visit (units (unknown) date) unknown) (unknown) (no (unknown) (unknown) (units (unkno wn) date) education packet: unknown) Child education/plan, symptoms, (unknown) (no (unknown) (unknown) Primary Care (units (u nknown) date) Provider: Britt unknown) Sharmaine (unknown) (no (unknown) (unknown) Primary Ob (units (unk nown) date) Provider: unknown) Lynne Campuzano (unknown) (no (unknown) (unknown) Prior (units (unkno wn) date) GBS-Infected unknown) child: No (unknown) (no (unknown) (unknown) Providers (units (unkn own) date) unknown) (unknown) (no (unknown) (unknown) Quad screen nml (units (unknown) date) unknown) (unknown) (no (unknown) (unknown) DANYELLE visit [id number]. (units (unknown) date) Feeling well. She unknown) reports sometimes a few days of (unknown) (no (unknown) (unknown) DANYELLE@[id number]. She (units (unknown) date) denies any unknown) problems. She bought an abdominal binder and (unknown) (no (unknown) (unknown) Rash or viral (units ( unknown) date) illness since last unknown) menstrual period: No (unknown) (no (unknown) (unknown) Reason For Visit (units (unknown) date) unknown) (unknown) (no (unknown) (unknown) Recent travel (units ( unknown) date) outside of unknown) country?: No (unknown) (no (unknown) (unknown) Recurrent (units (unkn own) date) loss or unknown) a stillbirth: No (unknown) (no (unknown) (unknown) Routine (units (unkno wn) date) precautions and unknown) normal physiological changes of (unknown) (no (unknown) (unknown) Routine (units (unkno wn) date) precautions unknown) reviewed. (unknown) (no (unknown) (unknown) Rubella nonimmune (units (unknown) date) immunize unknown) (unknown) (no (unknown) (unknown) S/P LEEP (loop (units (unknown) date) electrosurgical unknown) excision procedure) () (unknown) (no (unknown) (unknown) Safety (units (unkno wn) date) unknown) (unknown) (no (unknown) (unknown) Signed By: (units (unk nown) date) unknown) (unknown) (no (unknown) (unknown) Smoking Status: (units (unknown) date) Never smoker unknown) (unknown) (no (unknown) (unknown) Smoking/Tobacco (units (unknown) date) use: discussed unknown) (unknown) (no (unknown) (unknown) Social History (units (unknown) date) unknown) (unknown) (no (unknown) (unknown) Surgical History (units (unknown) date) (Reviewed 07/07/22 unknown) @ 20:15 by Lynne Campuzano MD) (unknown) (no (unknown) (unknown) Symptoms since (units (unknown) date) LMP: Reports unknown) amenorrhea, nausea, fatigue, urinary frequency, (unknown) (no (unknown) (unknown) TR 174 11 4wk (units ( unknown) date) unknown) (unknown) (no (unknown) (unknown) Tdap status: (units (u nknown) date) immunized unknown) (unknown) (no (unknown) (unknown) Teratogen (units (unkn own) date) Exposures since unknown) LMP/Conception: Denies prescription medications, (unknown) (no (unknown) (unknown) Testing Education (units (unknown) date) unknown) (unknown) (no (unknown) (unknown) Testing education (units (unknown) date) completed: Genetic unknown) testing, group B strep and Cell Free DNA (unknown) (no (unknown) (unknown) This note may (units ( unknown) date) have been all or unknown) partially generated using voice recognition (unknown) (no (unknown) (unknown) Tobacco + (units (unkn own) date) Substance Use unknown) (unknown) (no (unknown) (unknown) Tobacco Status (units (unknown) date) unknown) (unknown) (no (unknown) (unknown) Type of Delivery: (units (unknown) date) primary C/S unknown) (unknown) (no (unknown) (unknown) Type(s) of (units (unk nown) date) exercise: none unknown) (unknown) (no (unknown) (unknown) Typically feels (units (unknown) date) in the a.m.. Only unknown) feeling occasionally, nothing routinely. I (unknown) (no (unknown) (unknown) UProtein Movement (units (unknown) date) PreLabor FHR Fndl unknown) Ht Pres Edema Cerv Exam US/Comment Next Appt (unknown) (no (unknown) (unknown) Ultrasound (units (unk nown) date) Details:: Prior 7 unknown) week 3 day ultrasound at IVF on 11/15/21 clinic (unknown) (no (unknown) (unknown) Ultrasound (units (unk nown) date) unknown) (unknown) (no (unknown) (unknown) VB. Feeling good (units (unknown) date) movement. On unknown) discussion, she desire induction of labor (unknown) (no (unknown) (unknown) Vaginal (units (unkno wn) date) unknown) (unknown) (no (unknown) (unknown) Varicella/chicken (units (unknown) date) pox status: unknown) immunized and previous disease (mild case as (unknown) (no (unknown) (unknown) Visit Date: (units (un known) date) 12/08/21 Last unknown) Updated by: Carrie Pichardo MD (unknown) (no (unknown) (unknown) Visit Date: (units (un known) date) 01/05/22 Last unknown) Updated by: Carrie Pichardo MD (unknown) (no (unknown) (unknown) Visit Date: (units (un known) date) 02/02/22 Last unknown) Updated by: Carrie Pichardo MD (unknown) (no (unknown) (unknown) Visit Date: (units (un known) date) 02/28/22 Last unknown) Updated by: Lynne Campuzano MD (unknown) (no (unknown) (unknown) Visit Date: (units (un known) date) 03/28/22 Last unknown) Updated by: Lynne Campuzano MD (unknown) (no (unknown) (unknown) Visit Date: (units (un known) date) 04/25/22 Last unknown) Updated by: Lynne Campuzano MD (unknown) (no (unknown) (unknown) Visit Date: (units (un known) date) 05/10/22 Last unknown) Updated by: Lynne Campuzano MD (unknown) (no (unknown) (unknown) Visit Date: (units (un known) date) 05/24/22 Last unknown) Updated by: Lynne Campuzano MD (unknown) (no (unknown) (unknown) Visit Date: (units (un known) date) 06/07/22 Last unknown) Updated by: Lynne Campuzano MD (unknown) (no (unknown) (unknown) Visit Date: (units (un known) date) 06/15/22 Last unknown) Updated by: Kacy Palomo P.A-C (unknown) (no (unknown) (unknown) Visit Date: (units (un known) date) 06/21/22 Last unknown) Updated by: Lynne Campuzano MD (unknown) (no (unknown) (unknown) Visit Date: (units (un known) date) 06/28/22 Last unknown) Updated by: Lynne Campuzano MD (unknown) (no (unknown) (unknown) Visit Reasons: (units (unknown) date) 6wk PP *NOAUTHREQD unknown) (unknown) (no (unknown) (unknown) Vitals (units (unkno wn) date) unknown) (unknown) (no (unknown) (unknown) Vitamins and (units (u nknown) date) iron, Diet and unknown) weight gain, Fish and mercury intake, Caffeine use, (unknown) (no (unknown) (unknown) WG (units (unkno wn) date) unknown) (unknown) (no (unknown) (unknown) Weight 202 lb (units ( unknown) date) unknown) (unknown) (no (unknown) (unknown) Millis teeth (units (u nknown) date) extracted () unknown) (unknown) (no (unknown) (unknown) Zika virus (units (unk nown) date) exposure: No unknown) (unknown) (no (unknown) (unknown) after she (units (unkn own) date) hydrates. No unknown) persistent cramping, ctx, LOF or VB. Discussed GBS (unknown) (no (unknown) (unknown) alcohol intake: (units (unknown) date) former unknown) (unknown) (no (unknown) (unknown) amh (units (unkno wn) date) unknown) (unknown) (no (unknown) (unknown) and office visits (units (unknown) date) unknown) (unknown) (no (unknown) (unknown) anyone in either (units (unknown) date) family with: unknown) (unknown) (no (unknown) (unknown) at 40 weeks if no (units (unknown) date) labor prior. Will unknown) schedule and call her with a date. (unknown) (no (unknown) (unknown) baby's father had (units (unknown) date) a child with unknown) defects not listed above and Denies Other (unknown) (no (unknown) (unknown) bleeding. She is (units (unknown) date) feeling baby move. unknown) Routine precautions reviewed. (unknown) (no (unknown) (unknown) caffeine: Yes (units ( unknown) date) (aware of 200mg unknown) daily limit) (unknown) (no (unknown) (unknown) carbon monox (units (u nknown) date) detector in home: unknown) Yes (unknown) (no (unknown) (unknown) child) (units (unkno wn) date) unknown) (unknown) (no (unknown) (unknown) concerns with (units ( unknown) date) COVID infection unknown) and and urged patient to consider (unknown) (no (unknown) (unknown) consistent with (units (unknown) date) dates. unknown) (unknown) (no (unknown) (unknown) cramping, vaginal (units (unknown) date) bleeding or unknown) leakage of fluid. Doing her Glucola today. (unknown) (no (unknown) (unknown) current (units (unkno wn) date) occupational unknown) exposures/hazards: No (unknown) (no (unknown) (unknown) cy (units (unkno wn) date) unknown) (unknown) (no (unknown) (unknown) cytotec (units (unkno wn) date) unknown) (unknown) (no (unknown) (unknown) daily servings (units (unknown) date) fruits/ve-4 unknown) (unknown) (no (unknown) (unknown) declined referral (units (unknown) date) for unknown) echocardiogram for IVF . (unknown) (no (unknown) (unknown) discussed (units (unkn own) date) increased fiber in unknown) diet. May use MiraLax. No uterine type cramping, (unknown) (no (unknown) (unknown) discussed with (units (unknown) date) the patient. unknown) Patient is not COVID vaccinated. Discussed (unknown) (no (unknown) (unknown) disorders, Denies (units (unknown) date) Cystic Fibrosis, unknown) Denies Mental Retardation/Autism , Denies (unknown) (no (unknown) (unknown) do you feel safe (units (unknown) date) at home: Yes unknown) (unknown) (no (unknown) (unknown) docusate sodium (units (unknown) date) 100 mg capsule 200 unknown) mg PO DAILY #20 caps 07/11/22 [Rx Confirmed (unknown) (no (unknown) (unknown) drops of urine, (units (unknown) date) does feel it is unknown) from the bladder. No vaginal leakage of fluid (unknown) (no (unknown) (unknown) during the past (units (unknown) date) year weight has: unknown) decreased > 10 lbs (lost 30 lbs) (unknown) (no (unknown) (unknown) e (units (unkno wn) date) unknown) (unknown) (no (unknown) (unknown) eating out: (units (un known) date) rarely or never unknown) (unknown) (no (unknown) (unknown) ed 1wk (units (unkno wn) date) unknown) (unknown) (no (unknown) (unknown) education level: (units (unknown) date) college unknown) (unknown) (no (unknown) (unknown) exposure (units (unkno wn) date) discussed, CMV unknown) discussed, Toxoplasmosis precautions, Listeriosis (unknown) (no (unknown) (unknown) exposure, (units (unkn own) date) Medication use, unknown) Sauna/hot tub use, Dental care and Travel (unknown) (no (unknown) (unknown) feeling some less (units (unknown) date) movement, but she unknown) does kick counts and gets enough kicks, then (unknown) (no (unknown) (unknown) feeling some upper (units (unknown) date) discomfort when unknown) standing, but some muscle support tape to try (unknown) (no (unknown) (unknown) feels better with (units (unknown) date) using this when on unknown) her feet. Feeling good movement. No (unknown) (no (unknown) (unknown) felt any further (units (unknown) date) contractions. No unknown) LOF or VB. Feeling good movement. She (unknown) (no (unknown) (unknown) movement (units (unknown) date) and denies VB, unknown) LOF. Growth US showed normal GOMEZ 18.6 and growth (unknown) (no (unknown) (unknown) movement (units (unknown) date) daily. GBS screen unknown) collected. She desired a cervical check. Will (unknown) (no (unknown) (unknown) fire extinguisher (units (unknown) date) in home: No unknown) (unknown) (no (unknown) (unknown) firearms in home: (units (unknown) date) No unknown) (unknown) (no (unknown) (unknown) frequency: does (units (unknown) date) not exercise unknown) (unknown) (no (unknown) (unknown) frequent, then to (units (unknown) date) call. Occasionally unknown) feeling vaginal pressure when she sits, (unknown) (no (unknown) (unknown) getting the (units (un known) date) vaccine in unknown) . (unknown) (no (unknown) (unknown) growth US ordered (units (unknown) date) @36wks unknown) (unknown) (no (unknown) (unknown) have occurred. If (units (unknown) date) there are any unknown) questions, please contact the Medical Records (unknown) (no (unknown) (unknown) having a girl (units ( unknown) date) unknown) (unknown) (no (unknown) (unknown) her in for NST. (units (unknown) date) Feels some cramps unknown) in the morning after wakening, then results (unknown) (no (unknown) (unknown) here. No other (units (unknown) date) problems. Feeling unknown) good movement. No contractions, (unknown) (no (unknown) (unknown) household (units (unkn own) date) members: spouse unknown) (unknown) (no (unknown) (unknown) housing: house (units (unknown) date) unknown) (unknown) (no (unknown) (unknown) ibuprofen 600 mg (units (unknown) date) tablet 600 mg PO unknown) Q6HR PRN pain #60 tabs 07/11/22 [Rx Confirmed (unknown) (no (unknown) (unknown) if she does ever (units (unknown) date) feel significantly unknown) less, then definitely call and will bring (unknown) (no (unknown) (unknown) in the 56%. The (units (unknown) date) cervical canal was unknown) not well seen. She reports [place] Joy and (unknown) (no (unknown) (unknown) irritability, (units ( unknown) date) bloating and other unknown) (headaches + constipation) (unknown) (no (unknown) (unknown) is scheduled for (units (unknown) date) elective term IOL unknown) next week at 40 weeks, if no labor. For (unknown) (no (unknown) (unknown) leakage of fluid, (units (unknown) date) vaginal bleeding unknown) or abnormal vaginal discharge. Feeling (unknown) (no (unknown) (unknown) marital status: (units (unknown) date) unknown) (unknown) (no (unknown) (unknown) may occur. (units (unk nown) date) Occasional unknown) wrong-word or 'sound-alike' substitutions may have (unknown) (no (unknown) (unknown) medication (units (unk nown) date) options during unknown) labor. Tdap given today. (unknown) (no (unknown) (unknown) musculoskeletal (units (unknown) date) discomforts of unknown) , especially by the end of the day. No (unknown) (no (unknown) (unknown) needed. (units (unkno wn) date) unknown) (unknown) (no (unknown) (unknown) normal Glucola, (units (unknown) date) hemoglobin was unknown) 11.8. Questions answered regarding pain (unknown) (no (unknown) (unknown) noted cramping, (units (unknown) date) contractions, unknown) vaginal bleeding or leakage of fluid. She had a (unknown) (no (unknown) (unknown) nothing (units (unkno wn) date) persistent. unknown) Feeling good movement. Occasionally leaking few (unknown) (no (unknown) (unknown) number of (units (unkn own) date) children: 0 unknown) (unknown) (no (unknown) (unknown) occasional (units (unk nown) date) irregular stronger unknown) contractions, but nothing regular. Reviewed labor (unknown) (no (unknown) (unknown) occupational (units (u nknown) date) status: unemployed unknown) (unknown) (no (unknown) (unknown) occurred due to (units (unknown) date) the inherent unknown) limitations of voice recognition software. Please (unknown) (no (unknown) (unknown) or bleeding. No (units (unknown) date) persistent unknown) cramping. Ultrasound for EFW today due to IVF (unknown) (no (unknown) (unknown) other problems. (units (unknown) date) Overall sleeping unknown) well. She felt a little cramping which (unknown) (no (unknown) (unknown) other problems. (units (unknown) date) Tried 1 Colace unknown) daily without improvement. Discussed increase (unknown) (no (unknown) (unknown) otherwise when (units (unknown) date) sitting still. No unknown) headache, scotomata or nausea. She is not (unknown) (no (unknown) (unknown) oxycodone 5 mg (units (unknown) date) tablet See Rx unknown) Instructions .Route .COMPLEX PRN Pain, Moderate (4 (unknown) (no (unknown) (unknown) pain, points to (units (unknown) date) over uterus, unknown) pinching pain when she bends over. No pain (unknown) (no (unknown) (unknown) pets and animals: (units (unknown) date) Yes (2 dogs) unknown) (unknown) (no (unknown) (unknown) . EFW 44 (units (unknown) date) percentile, 2022 unknown) g, 4 lb 7 oz. GOMEZ 14.6. (unknown) (no (unknown) (unknown) prenat.vits,emilia,m (units (unknown) date) [id number] 1 unknown) tab PO DAILY 11/27/21 [History Confirmed (unknown) (no (unknown) (unknown) prevention and (units (unknown) date) Rubella unknown) Immunization (unknown) (no (unknown) (unknown) pt here for 6 wk (units (unknown) date) pp unknown) (unknown) (no (unknown) (unknown) read the note (units ( unknown) date) carefully and unknown) recognize, using context, where these substitutions (unknown) (no (unknown) (unknown) recheck a growth (units (unknown) date) ultrasound, unknown) ordered, for IVF . (unknown) (no (unknown) (unknown) resolve, only has (units (unknown) date) felt an occasional unknown) contraction. No LOF or VB. Feeling good (unknown) (no (unknown) (unknown) reviewed had a (units (unknown) date) palpate for unknown) contractions, and if having every 10 minutes or more (unknown) (no (unknown) (unknown) reviewed, (units (unkn own) date) coverage 24 hours unknown) a day and participation of father in care (unknown) (no (unknown) (unknown) routine (units ( unknown) date) movement. She will unknown) do her Glucola/H/H next visit. Offered, (unknown) (no (unknown) (unknown) s/sx and when to (units (unknown) date) call. GBS was unknown) negative. No concerns. F/u in 1 week or as (unknown) (no (unknown) (unknown) screen next (units (un known) date) visit. unknown) (unknown) (no (unknown) (unknown) seatbelt use: (units ( unknown) date) always unknown) (unknown) (no (unknown) (unknown) second hand (units (un known) date) exposure: No unknown) (unknown) (no (unknown) (unknown) she is feeling (units ( unknown) date) [place] Joy or unknown) the baby, when feels tight in the upper abdomen. (unknown) (no (unknown) (unknown) software. 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 No LOF or (unknown) (no (unknown) (unknown) special donna (units ( unknown) date) needs: No unknown) (unknown) (no (unknown) (unknown) substance use (units ( unknown) date) type: does not use unknown) (unknown) (no (unknown) (unknown) to 2 daily. After (units (unknown) date) review, may need unknown) to increase water intake recently, and (unknown) (no (unknown) (unknown) to use as an (units (u nknown) date) abdominal binder. unknown) Will try to fit her for an abdominal binder (unknown) (no (unknown) (unknown) [facility]: [facility] (unknown) (no (unknown) (unknown) water heater temp (units (unknown) date) set < 120 deg: No unknown) (unsure) (unknown) (no (unknown) (unknown) weeks ago, (units (unk nown) date) deferred today. unknown) (unknown) (no (unknown) (unknown) well, but getting (units (unknown) date) general unknown) discomfort. She is feeling some right upper abdominal (unknown) (no (unknown) (unknown) well-balanced (units ( unknown) date) diet: about half unknown) the time (unknown) (no (unknown) (unknown) working smoke (units ( unknown) date) detector in home: unknown) Yes Social History date description facility 2022-06-21 00:00 Never smoked tobacco (finding) [facility] 2022-06-28 00:00 Never smoked tobacco (finding) [facility] 2022-07-05 00:00 Never smoked tobacco (finding) [facility] 2022-07-07 00:00 Never smoked tobacco (finding) [facility] 2022-07-17 00:00 Never smoked tobacco (finding) [facility] 2022-08-16 00:00 Never smoked tobacco (finding) [facility] Vital Signs date measurement value units 2022-05-24 00:00 BMI 38.7 kg/m2 2022-05-24 00:00 BP_diastolic 70 mmHg 2022-05-24 00:00 BP_systolic 104 mmHg 2022-05-24 00:00 height_metric 160.02 cm 2022-05-24 00:00 height_standard 63 in 2022-05-24 00:00 weight_metric 99.33 kg 2022-05-24 00:00 weight_standard 218.99 lb 2022-06-07 00:00 BMI 39.4 kg/m2 2022-06-07 00:00 BP_diastolic 68 mmHg 2022-06-07 00:00 BP_systolic 122 mmHg 2022-06-07 00:00 height_metric 160.02 cm 2022-06-07 00:00 height_standard 63 in 2022-06-07 00:00 weight_metric 101.15 kg 2022-06-07 00:00 weight_standard 223 lb 2022-06-15 00:00 BMI 39.8 kg/m2 2022-06-15 00:00 BP_diastolic 68 mmHg 2022-06-15 00:00 BP_systolic 116 mmHg 2022-06-15 00:00 height_metric 160.02 cm 2022-06-15 00:00 height_standard 63 in 2022-06-15 00:00 weight_metric 102.05 kg 2022-06-15 00:00 weight_standard 224.98 lb 2022-06-21 00:00 BMI 40.1 kg/m2 2022-06-21 00:00 BP_diastolic 72 mmHg 2022-06-21 00:00 BP_systolic 122 mmHg 2022-06-21 00:00 height_metric 160.02 cm 2022-06-21 00:00 height_standard 63 in 2022-06-21 00:00 weight_metric 102.96 kg 2022-06-21 00:00 weight_standard 226.99 lb 2022-06-28 00:00 BMI 40.5 kg/m2 2022-06-28 00:00 BP_diastolic 70 mmHg 2022-06-28 00:00 BP_systolic 128 mmHg 2022-06-28 00:00 height_metric 160.02 cm 2022-06-28 00:00 height_standard 63 in 2022-06-28 00:00 weight_metric 103.87 kg 2022-06-28 00:00 weight_standard 228.99 lb 2022-07-05 00:00 BP_diastolic 71 mmHg 2022-07-05 00:00 BP_systolic 115 mmHg 2022-07-05 00:00 height_metric 160.02 cm 2022-07-05 00:00 height_standard 63 in 2022-07-05 00:00 temperature_metric 36.44 C 2022-07-05 00:00 temperature_standard 97.6 F 2022-07-05 00:00 weight_metric 103.87 kg 2022-07-05 00:00 weight_standard 228.99 lb 2022-07-10 00:00 o2_saturation 95 % 2022-07-11 00:00 BP_diastolic 60 mmHg 2022-07-11 00:00 BP_systolic 114 mmHg 2022-07-11 00:00 heart_rate 90 /min 2022-07-11 00:00 height_metric 160.02 cm 2022-07-11 00:00 height_standard 63 in 2022-07-11 00:00 respiration_rate 14 /min 2022-07-11 00:00 temperature_metric 36.56 C 2022-07-11 00:00 temperature_standard 97.8 F 2022-07-11 00:00 weight_metric 104.32 kg 2022-07-11 00:00 weight_standard 229.99 lb 2022-07-17 00:00 BMI 38.0 kg/m2 2022-07-17 00:00 BP_diastolic 62 mmHg 2022-07-17 00:00 BP_systolic 108 mmHg 2022-07-17 00:00 height_metric 160.02 cm 2022-07-17 00:00 height_standard 63 in 2022-07-17 00:00 weight_metric 97.52 kg 2022-07-17 00:00 weight_standard 214.99 lb 2022-08-16 00:00 BMI 35.7 kg/m2 2022-08-16 00:00 BP_diastolic 62 mmHg 2022-08-16 00:00 BP_systolic 118 mmHg 2022-08-16 00:00 height_metric 160.02 cm 2022-08-16 00:00 height_standard 63 in 2022-08-16 00:00 weight_metric 91.62 kg 2022-08-16 00:00 weight_standard 201.99 lb
[2022-08-19 22:53] LABS: BASOPHILS % (AUTO) 0.4 %; EOSINOPHILS # (AUTO) 0.1 10^3/uL (0.0-0.7); HCT - HEMATOCRIT 37.5 % (37.0-47.0); HGB - HEMOGLOBIN 11.7 g/dL (12.0-16.0); LYMPHOCYTES # (AUTO) 1.4 10^3/uL (1.5-3.5); LYMPHOCYTES % (AUTO) 25.7 %; MEAN CORPUSCULAR HEMOGLOBIN 28.3 pg (27.0-31.0); MEAN CORPUSCULAR HGB CONC 31.2 g/dL (32.0-36.0); MEAN CORPUSCULAR VOLUME 90.6 fL (81.0-99.0); MEAN PLATELET VOLUME 10.7 fL (7.9-10.8); MONOCYTES # (AUTO) 0.6 10^3/uL (0.0-1.0); MONOCYTES % (AUTO) 10.9 %; NEUTROPHILS # (AUTO) 3.3 10^3/uL (1.5-6.6); NEUTROPHILS % (AUTO) 61.8 %; PLT - PLATELET COUNT 310 10^3/uL (130-450); RED BLOOD COUNT 4.14 10^6/uL (4.20-5.40); RED CELL DISTRIBUTION WIDTH 14.4 % (12.0-15.0); WHITE BLOOD COUNT 5.3 x10^3/uL (4.8-10.8)
[2022-08-19 23:06] LABS: GLUCOSE, URINE (UA) NEGATIVE (NEGATIVE); KETONES,URINE (UA) NEGATIVE (NEGATIVE); LEUKOCYTE ESTERASE, URINE MODERATE (NEGATIVE); NITRITE,URINE NEGATIVE (NEGATIVE); OCCULT BLOOD,URINE SMALL (NEGATIVE); PH,URINE 6.5 PH (5.0-7.5); PROTEIN,URINE NEGATIVE (NEGATIVE); UROBILINOGEN,URINE 2 E.U./dL (NORMAL)
[2022-08-19 23:08] LABS: ALBUMIN 4.1 g/dL (3.2-5.5); ALBUMIN/GLOBULIN RATIO 1.3 (1.0-2.2); BILIRUBIN,TOTAL 2.8 mg/dL (0.2-1.0); CALCIUM 9.5 mg/dL (8.5-10.3); CREATININE 1.1 mg/dL (0.4-1.0); POTASSIUM 3.8 mmol/L (3.5-5.0); TOTAL PROTEIN 7.3 g/dL (6.7-8.2)
[2022-08-19 23:11] LABS: CLARITY,URINE HAZY (CLEAR)
[2022-08-19 23:13] LABS: BILIRUBIN,URINE SMALL (NEGATIVE); ICTOTEST,URINE POSITIVE
[2022-08-19 23:17] LABS: BACTERIA,URINE Few /HPF (None Seen); HCG UR QUAL NEGATIVE; RBC,URINE 0-5 /HPF (0-5); SQUAMOUS EPITHELIAL CELL,UR FEW Squamous (<= Few)
[2022-08-19] MEDS ORDERED: MAG HYDROX/AL HYDROX/SIMETH 30 ML UDC PO STA (23:21)
[2022-08-19] MEDS ORDERED: LIDOCAINE VISCOUS 2% 15 ML UDC MM STA (23:21)
--- NOTE | 2022-08-19 23:23 | ED Physician Documentation ---
PD HPI CHEST PAIN - Stated complaint Stated Complaint: CHEST PX - Chief complaint Chief Complaint: Cardiac - History obtained from History obtained from: Patient - History of Present Illness Timing - onset: How many days ago (2) Timing - onset during: Rest Timing - duration: Days (2) Timing - details: Gradual onset, Still present Pain level now: 3 Quality: Pressure, Sharp, Pain Location: Substernal Radiation: Back Improved by: Other (peptobismol) Worsened by: Eating Associated symptoms: Nausea Similar symptoms before: Diagnosis (heart burn) Recently seen: Surgery (had 6 weeks ago.) - Additional information Additional information: Previously well Tamara Lorenz is a 27-year-old female who has given by section about 6 weeks ago. Over the past 2 days she has developed epigastric pain radiating to her back and she has not had the usual relief that she would get with antacids with this she has tried a number of things including Pepto-Bismol Mylanta baking soda and heartburn medicine. She has had problems with heartburn throughout her and throughout her life. She has not had pain like this stay on, and she has not had improvement. She is having worse pain with eating but can get fluids down without trouble. Review of Systems Constitutional: denies: Fever Eyes: denies: Decreased vision Ears: denies: Loss of hearing, Ear pain Nose: denies: Rhinorrhea / runny nose, Congestion Throat: denies: Sore throat Cardiac: reports: Chest pain / pressure. denies: Palpitations, Pedal edema, Calf pain Respiratory: denies: Dyspnea, Cough, Wheezing GI: reports: Abdominal Pain, Nausea. denies: Vomiting, Constipation, Diarrhea : denies: Dysuria, Frequency Skin: denies: Rash Musculoskeletal: reports: Back pain. denies: Neck pain, Extremity pain PD PAST MEDICAL HISTORY - Past Medical History Cardiovascular: None Respiratory: None Neuro: None Endocrine/Autoimmune: None GI: GERD LEGAL RESEARCHER: None : None HEENT: Chronic vision loss Psych: None Musculoskeletal: None Derm: None - Past Surgical History Past Surgical History: Yes /LEGAL RESEARCHER: LEEP (Cervical surgery) HEENT: Tonsil/Adenoidectomy - Present Medications Home Medications: Ambulatory Orders Medication Instructions Recorded Confirmed Estradiol Valerate/Dienogest 1 each PO TID #1 packet 05/05/20 [Natazia 28 Tablet] - Allergies Allergies/Adverse Reactions: Allergies Allergy/AdvReac Type Severity Reaction Status Date / Time No Known Drug Allergies Allergy Verified 08/19/22 22:05 - Social History Does the pt smoke?: No Smoking Status: Former smoker Does the pt drink ETOH?: Yes Does the pt have substance abuse?: No - Immunizations Immunizations are current?: Yes - POLST Patient has POLST: No PD ED PE NORMAL - Vitals Vital signs reviewed: Yes (hypertensive mile ) - General General: Alert and oriented X 3, No acute distress, Well developed/nourished - HEENT HEENT: Atraumatic, PERRL, EOMI - Neck Neck: Supple, no meningeal sign, No bony TTP - Cardiac Cardiac: RRR, No murmur - Respiratory Respiratory: No respiratory distress, Clear bilaterally - Abdomen Abdomen: Normal bowel sounds, Soft, Non distended, No organomegaly, Other (mild epigastric tenderness to palpation. ) - Back Back: No CVA TTP, No spinal TTP - Derm Derm: Normal color, Warm and dry, No rash - Extremities Extremities: No deformity, No edema - Neuro Neuro: Alert and oriented X 3, internal affairs commander 2-12 intact, No motor deficit, No sensory deficit, Normal speech Eye Opening: Spontaneous Motor: Obeys Commands Verbal: Oriented GCS Score: 15 - Psych Psych: Normal mood, Normal affect Results - Vitals Vitals: Vital Signs - 24 hr 08/19/22 08/19/22 08/20/22 22:05 22:08 00:08 Temperature 36.5 C 36.5 C Heart Rate 65 65 50 L Respiratory 16 16 16 Rate Blood Pressure 127/87 H 127/87 H 106/89 H O2 Saturation 100 100 100 08/20/22 08/20/22 08/20/22 02:08 04:00 06:00 Temperature 36.5 C Heart Rate 49 L 47 L 43 L Respiratory 16 18 17 Rate Blood Pressure 110/71 111/75 116/79 O2 Saturation 100 100 99 Oxygen O2 Source Room air - EKG (time done) 2327 QRS: Low voltage (precordial leads) Ischemia: Normal ST segments Compare to prior EKG: Old EKG unavailable Computer interpretation: Agree with computer - Labs Labs: Laboratory Tests 08/19/22 08/19/22 08/19/22 22:40 22:40 22:40 WBC 5.3 RBC 4.14 L Hgb 11.7 L Hct 37.5 MCV 90.6 MCH 28.3 MCHC 31.2 L RDW 14.4 Plt Count 310 MPV 10.7 Neut # (Auto) 3.3 Lymph # (Auto) 1.4 L Towns # (Auto) 0.6 Eos # (Auto) 0.1 Baso # (Auto) 0.0 Absolute Nucleated RBC 0.00 Nucleated RBC % 0.0 Sodium 138 Potassium 3.8 Chloride 102 Carbon Dioxide 26 Anion Gap 10.0 BUN 8 Creatinine 1.1 H Estimated GFR (MDRD) 60 L Glucose 108 H Calcium 9.5 Total Bilirubin 2.8 H AST 502 H ALT 492 H Alkaline Phosphatase 121 Troponin I High Sens 2.6 Total Protein 7.3 Albumin 4.1 Globulin 3.2 Albumin/Globulin Ratio 1.3 Lipase 33 Urine Color Urine Clarity Urine pH Ur Specific [place] Urine Protein Urine Glucose (UA) Urine Ketones Urine Occult Blood Urine Nitrite Urine Bilirubin Urine Urobilinogen Ur Leukocyte Esterase Urine RBC Urine WBC Ur Squamous Epith Cells Urine Bacteria Ur Microscopic Review Urine Culture Comments Urine HCG, Qual 08/19/22 08/19/22 08/20/22 23:00 23:00 05:00 WBC RBC Hgb Hct MCV MCH MCHC RDW Plt Count MPV Neut # (Auto) Lymph # (Auto) Towns # (Auto) Eos # (Auto) Baso # (Auto) Absolute Nucleated RBC Nucleated RBC % Sodium 140 Potassium 3.5 Chloride 104 Carbon Dioxide 26 Anion Gap 10.0 BUN 8 Creatinine 0.9 Estimated GFR (MDRD) 75 L Glucose 116 H Calcium 9.2 Total Bilirubin 2.8 H AST 403 H ALT 472 H Alkaline Phosphatase 118 Troponin I High Sens Total Protein 7.0 Albumin 4.0 Globulin 3.0 Albumin/Globulin Ratio 1.3 Lipase 35 Urine Color YELLOW Urine Clarity HAZY Urine pH 6.5 Ur Specific [place] <=1.005 Urine Protein NEGATIVE Urine Glucose (UA) NEGATIVE Urine Ketones NEGATIVE Urine Occult Blood SMALL H Urine Nitrite NEGATIVE Urine Bilirubin SMALL H Urine Urobilinogen 2 H Ur Leukocyte Esterase MODERATE H Urine RBC 0-5 Urine WBC 11-25 H Ur Squamous Epith Cells FEW Squamous Urine Bacteria Few Ur Microscopic Review INDICATED Urine Culture Comments INDICATED Urine HCG, Qual NEGATIVE Procedures - Bedside sono Bedside sono by EMP: With use of POCUS I was able to image the gallbladder which was enlarged which was distended and had multiple shadowing stones. I was not able to specifically identify the common bile duct only from lack of experience. There are dilated ducts. PD Medical Decision Making - ED course Complexity details: reviewed old records, reviewed results, re-evaluated patient, considered differential, d/w patient Reviewed Lab Results: I reviewed the patient's complete blood cell count which was normal and I examined the patient's electrolytes and blood chemistries. These indicated a pattern consistent with the possibility of biliary obstruction with a bilirubin of 2.8 and AST of over 500 and ALT of over 400. The patient's lipase was normal. I considered the most likely cause of the patient's elevation of bilirubin AST and ALT to be likely a common bile duct stone. Social Determinants of Health: The patient has a 6-week-old baby at home baby is being fed with formula and she has support of her . [place] ED course: 27-year-old female presents to the emergency department with epigastric pain and postprandial pain. Her laboratory studies suggest the possibility of biliary obstruction and with use of POCUS we are able to demonstrate the presence of gallstones making the likely mccallum of common bile duct stone high. We do not have access to formal ultrasound and we do not have access to MRI currently. I found the likelihood of common bile duct stone compelling enough based on the patient's history and laboratory and physical findings that I begin calling for a bed for transfer. [facility] was not able to entertain the possibility of a transfer. [facility] was not able to entertain possibility of a transfer. The pat erin has been placed on the CC list as other hospitals had similar response. I was able to speak to a pharmaceutical compounding supervisor from [facility] who indicated that he was unable to give me any advice because he had no way to follow-up. I was able to speak to a pharmaceutical compounding supervisor from [facility] who recommended we transfer the patient to the hospital for further evaluation and we are placing the patient on a waiting list at their hospital. She does not require pain medication at this time. We will board the patient here awaiting a bed and recheck labs to follow the obstruction. At shift change care is turned over to Dr. Alva with expectation of transfer or improvement.
[2022-08-20 05:32] LABS: ALBUMIN/GLOBULIN RATIO 1.3 (1.0-2.2); BILIRUBIN,TOTAL 2.8 mg/dL (0.2-1.0); CALCIUM 9.2 mg/dL (8.5-10.3); CREATININE 0.9 mg/dL (0.4-1.0); POTASSIUM 3.5 mmol/L (3.5-5.0)
--- NOTE | 2022-08-20 09:41 | ED Physician Documentation ---
ED Addendum - Addendum Addendum: 08/20/22 09:39 The patient is resting comfortable at this time. I let her rest mainly as she had been up most of the night. At this point pending is ultrasound and they should be here shortly this morning. We will also recheck her liver enzymes in a few hours. Consideration is a persistently clogged bile duct versus cholecystitis versus a brief blockage with now passage of the stone. We will see how the ultrasound looks and also her degree of symptoms. If she is feeling better and her liver enzyme numbers are trending down then we may be able to discharge home with medications. Otherwise if its unclear, she may need to either transfer to another facility for ERCP/MRCP with delayed transferring then MRI MRCP at our facility on Sunday.
--- NOTE | 2022-08-20 11:04 | Ultrasound Report ---
PROCEDURE: Abdomen Limited INDICATIONS: RUQ and epigastric pain looks like maybe CBD stone TECHNIQUE: Real-time focused scanning was performed of the abdomen, with image documentation. COMPARISON: None FINDINGS: Liver: Liver shows diffusely increased echogenicity without focal mass lesion. No intrahepatic duct al dilation. Gallbladder: Several shadowing calculi are noted in the lumen of the gallbladder without gallbladder wall thickening or pericholecystic fluid Common Bile Duct: 6 mm. Pancreas: Unremarkable as visualized. Right Kidney: Appropriate in size and echotexture. No evidence of hydronephrosis. No shadowing calc pete. No solid or cystic mass lesion. IMPRESSION: 1. Cholelithiasis without acute cholecystitis. 2. Prominent CBD measures 6 mm. Consider follow-up MRCP to evaluate for distal CBD stone. 3. Hepatic fatty infiltration Reviewed by: Filemon Sparrow MD on 08/20/2022 10:03 AM [place] Approved by: Filemon Sparrow MD on 08/20/2022 10:03 AM [place] Station ID: [id number]
[2022-08-20 12:05] LABS: BASOPHILS % (AUTO) 0.4 %; EOSINOPHILS # (AUTO) 0.1 10^3/uL (0.0-0.7); EOSINOPHILS % (AUTO) 1.5 %; HCT - HEMATOCRIT 37.2 % (37.0-47.0); HGB - HEMOGLOBIN 11.5 g/dL (12.0-16.0); LYMPHOCYTES % (AUTO) 20.4 %; MEAN CORPUSCULAR HEMOGLOBIN 28.1 pg (27.0-31.0); MEAN CORPUSCULAR HGB CONC 30.9 g/dL (32.0-36.0); MEAN PLATELET VOLUME 10.5 fL (7.9-10.8); MONOCYTES # (AUTO) 0.4 10^3/uL (0.0-1.0); MONOCYTES % (AUTO) 8.7 %; NEUTROPHILS # (AUTO) 3.2 10^3/uL (1.5-6.6); NEUTROPHILS % (AUTO) 68.6 %; PLT - PLATELET COUNT 277 10^3/uL (130-450); RED BLOOD COUNT 4.09 10^6/uL (4.20-5.40); RED CELL DISTRIBUTION WIDTH 14.4 % (12.0-15.0); WHITE BLOOD COUNT 4.7 x10^3/uL (4.8-10.8)
[2022-08-20 12:29] LABS: ALBUMIN 4.1 g/dL (3.2-5.5); BILIRUBIN,DIRECT 1.7 mg/dL (0.1-0.5); TOTAL PROTEIN 7.1 g/dL (6.7-8.2)
[2022-08-20 13:31] VITALS: BP 117/70
[2022-08-21 22:06] LABS: HBsAG SCREEN Negative (Negative); HCV AB <0.1 s/co ratio (0.0-0.9); HEPATITIS B CORE IGM AB Negative (Negative)
== END 2022-08-20 13:28 | disposition home or self-care (01) ==
LOC: ED 21:54
DX: K80.51 Calculus of bile duct without cholangitis or cholecystitis with obstruction (principal); Z87.891 Personal history of nicotine dependence
CPT/HCPCS: 36415; 76705; 80053; 80076; 81001; 81025; 83690; 84484; 85025; 86705; 86709; 86803; 87086; 87340; 93005; 99284; A9270; 81003